=== PATIENT | male | born 1945 | race Caucasian/White ===

== ENCOUNTER 2024-07-23 16:59 | Inpatient (IN) | payer MEDICARE, SELFPAY ==
[2024-07-23] VITALS (21 sets, daily range): BP systolic 103–143; BP diastolic 76–102; PULSE 85–152; RESP 15–35; TEMP 36.4–36.5; O2SAT 90–96
--- NOTE | ~2024-07-23 | XR_ITS ---
EXAMINATION: XR chest 1V portable Exam Date/Time: 07/23/2024 17:55 MANAGER LIFE SCIENCES HISTORY: CP and SOB Comparison: None. RESULT: Lines, tubes, and devices: None. Lungs and pleura: Diffuse moderate reticulonodular opacities with scattered groundglass and subsegme ntal consolidative opacity. Moderate left costophrenic angle blunting. Cardiomediastinal silhouette: Partially obscured, otherwise unremarkable. Other: No acute osseous or upper abdominal finding. IMPRESSION: Pulmonary opacities may represent moderate edema with a moderate left pleural effusion. Infection not excluded. Reviewed, dictated and finalized at location K. GER [employer] SCIENCES IMPRESSION: Pulmonary opacities may represent moderate edema with a moderate left pleural e ffusion. Infection not excluded.
--- NOTE | ~2024-07-23 | CT_ITS ---
EXAMINATION: CT diagnostic chest wo con DATE: 07/25/2024 11:25 INDICATION: ?Pneumonia TECHNIQUE: Computed tomography (CT) of the chest was performed without intravenous contrast. Addition al 3D reconstructions utilizing coronal maximum intensity projection (MIP) were performed. Automated exposure control and iterative reconstruction technique were employed. The dose-length product was 36 4.79 mGy-cm. COMPARISON: None FINDINGS: Moderate emphysema. There are small bilateral posterior layering pleural effusions with dependent ate lectasis in both lungs. There are groundglass opacities and small patchy regions of consolidation sca ttered throughout both lungs most prominent in the bilateral upper lobes, lingula and superior segmen t of the left lower lobe and would favor pneumonia over pulmonary edema. There is some mild wall thic kening along the anteromedial aspect and some thin linear calcification along the anterolateral wall of a 8 x 6 cm cavitary lesion at the lingula the majority of which demonstrates a very thin periphera l wall. Cardiomegaly with atherosclerotic coronary artery calcification. No pericardial effusion. Tho racic aorta is normal in caliber. Multiple mildly prominent but still normal-sized mediastinal lymph nodes which are likely reactive. Visualized upper abdomen is unremarkable. Moderate thoracic spondylo sis. IMPRESSION: 1. Moderate emphysema with patchy diffuse bilateral lung disease most likely multifocal pneumonia wit h differential including pulmonary edema or chronic interstitial lung disease. 2. Mild wall thickening along the anteromedial margin of a large cavitary lesion in the lingula most likely related to either emphysema or chronic infection with some peripheral atelectasis/scarring. 3. Small bilateral pleural effusions. 4. Cardiomegaly. Reviewed, dictated and finalized at location A. AL PHYSIOLOGY TEACHER IMPRESSION: 1. Moderate emphysema with patchy diffuse bilateral lung disease most likely mu ltifocal pneumonia with differential including pulmonary edema or chronic inter stitial lung disease. 2. Mild wall thickening along the anteromedial margin of a large cavitary lesio n in the lingula most likely related to either emphysema or chronic infection w ith some peripheral atelectasis/scarring. 3. Small bilateral pleural effusions. 4. Cardiomegaly.
--- NOTE | 2024-07-23 17:43 | ECG_ITS ---
Test Date: 2024-07-23 17:46:02 Measurements Intervals [place] Rate: 151 P: 0 [place]: 0 QRS: 46 QRSD: 110 T: 161 QT: 285 QTc: 452 Interpretive Statements ATRIAL FLUTTER/TACHYCARDIA WITH RAPID VENTRICULAR RESPONSE LOW QRS VOLTAGE IN LIMB LEADS POSSIBLE ANTERIOR MYOCARDIAL INFARCTION , PROBABLY OLD BORDERLINE ST-T WAVE ABNORMALITY- LAT/HIGH LAT LEADS BASELINE WANDER- V4-V6 ABNORMAL ECG No previous ECG available for comparison Electronically Signed On 07-23-2024 19:12:50 TUBE MOLDER FIBERGLASS by Derian Barnes D.O.
[2024-07-23 17:55] LABS: Basophils Percent Auto 0.3 % (0.2-1.2); Eosinophils Absolute Auto 0.1 K/mm3 (0-0.3); Eosinophils Percent Auto 0.9 % (0-4.4); Hematocrit 44.3 % (42.0-52.0); Hemoglobin 15.2 g/dL (14.0-18.0); Immature Granulocyte Absolute 0.03 K/mm3 (0.00-0.031); Immature Granulocyte Percent A 0.3 % (0-0.5); Lymphocytes Absolute Auto 1.26 K/mm3 (0.9-3.2); Lymphocytes Percent Auto 10.9 % (18.3-44.2); Mean Corpuscular HGB Conc 34.3 g/dl (32-36); Mean Corpuscular Volume 87.4 fl (80-100); Mean Platelet Volume 10.9 fl (7.4-10.4); Monocytes Absolute Auto 0.8 K/mm3 (0.1-0.6); Monocytes Percent Auto 6.6 % (2.6-8.5); Neutrophils Absolute Auto 9.4 K/mm3 (1.3-6.7); Platelet Count Result 170 k/mm3 (150-375); Red Blood Count 5.07 M/mm3 (4.6-6.20); Red Cell Distribution Width 12.9 % (11.5-14.5); White Blood Count 11.6 K/mm3 (4.5-10.0)
[2024-07-23] MEDS: dilTIAZem HCl INJ 25 MG/5 ML VIAL 10 MG IV PUSH (17:57)
[2024-07-23] MEDS: ASPIRIN 81 MG CHEWABLE TABLET 324 MG PO (17:57)
[2024-07-23 18:12] LABS: INR 1.1; Prothrombin Time 14.7 Seconds (11.1-14.7)
[2024-07-23 18:13] LABS: Partial Thromboplastin Time 28.3 Seconds (22.3-36.8)
[2024-07-23 18:17] LABS: Alanine Aminotransferase 19 U/L (6-50); Albumin Level 4.3 g/dL (3.5-5.1); Alkaline Phosphatase 103 U/L (38-126); Anion Gap 12 mmol/L (4-12); Aspartate Amino Transferase 25 U/L (17-59); Bilirubin,Total 0.9 mg/dL (0.2-1.3); Blood Urea Nitrogen 37 mg/dL (9-20); Calcium 8.9 mg/dL (8.4-10.2); Carbon Dioxide 23 mmol/L (22-30); Chloride 102 mmol/L (98-107); Estimated CRCL calculation 45 ml/min; Estimated Glomerular Filt Rate 49; Glucose 165 mg/dL (65-110); Lipase 68 U/L (23-300); Potassium 4.1 mmol/L (3.4-5.0); Sodium 137 mmol/L (137-145)
[2024-07-23] MEDS: dilTIAZem HCl INJ 25 MG/5 ML VIAL 15 MG IV PUSH (18:20)
--- NOTE | 2024-07-23 18:26 | ECG_ITS ---
Test Date: 2024-07-23 18:35:56 Measurements Intervals [place] Rate: 110 P: 0 [place]: 0 QRS: 48 QRSD: 85 T: 152 QT: 366 QTc: 496 Interpretive Statements ATRIAL FIBRILLATION WITH RAPID VENTRICULAR RESPONSE DELAYED PRECORDIAL R/S TRANSITION ST-T WAVE ABNORMALITY IN LAT/HIGH LAT LEADS- CONSIDER ISCHEMIA BASELINE ARTIFACT- I, II, III, AVL, AVF, V4 ABNORMAL ECG Compared to ECG 07/23/2024 17:46:02 ATRIAL FLUTTER NO LONGER PRESENT Possible ischemia now present Electronically Signed On 07-23-2024 19:07:37 APARTMENT MAINTENANCE MANAGER by Derian Barnes D.O.
[2024-07-23 18:31] LABS: NT Pro B Type Natriuretic Pept 9110 pg/mL (19.9-100); Troponin I 0.057 ng/mL (0.000-0.034)
[2024-07-23] MEDS: FUROSEMIDE INJ 40 MG/4 ML VIAL IV PUSH (18:39)
--- NOTE | 2024-07-23 18:42 | ED_ITS ---
HPI - SOB/Dyspnea General Chief Complaint: Shortness of Breath/Dyspnea Stated Complaint: sob Time Seen by Provider: 07/23/24 17:46 History of Present Illness HPI Narrative: Patient is a 78-year-old male who presents ER with shortness of breath. Ongoing for 2 weeks. He has had cough that is nonproductive. No fevers or chills or sweats. No chest pain or chest pressure. Unsure if he has orthopnea. Cannot describe any aggravating factors. His heart rate is elevated but he has no palpitations. Reports history of hypertension but no other cardiac issues. Related Data Allergies Allergy/AdvReac Type Severity Reaction Status Date / Time No Known Drug Allergies Allergy Unknown Verified 01/16/17 16:28 Review of Systems Review of Systems: All systems reviewed & are unremarkable except as noted in HPI and below Constitutional: Constitutional: Denies chills, Reports fatigue and Denies fever(s) ENT: Reports system reviewed and no additional complaints, except as documented Cardiovascular: Cardiovascular: Reports no additional cardiovascular complaints Respiratory: Respiratory: Denies chest congestion, Reports cough, Reports dyspnea and Denies wheezing Gastrointestinal: Gastrointestinal: Reports no additional gastrointestinal complaints Musculoskeletal: Musculoskeletal: Reports no additional musculoskeletal complaints PMFSH Past Medical History Medical History (Updated 07/23/24 @ 20:06 by Khai Murphy MD) Hypertension Surgical History Surgical History (Updated 07/23/24 @ 19:31 by Khai Murphy MD) No history of previous surgery Exam Narrative: GENERAL: Well-appearing, well-nourished, and in no acute distress. HEAD: Normocephalic, atraumatic. ENT: Mucous membranes moist. NECK: Supple. CHEST: Faint crackles bilaterally. No respiratory distress. HEART: Tachycardic and regular. Normal peripheral pulses. ABDOMEN: Soft, nontender, nondistended, normal active bowel sounds. EXTREMITIES: Normal range of motion. 1+ edema. SKIN: Warm, dry, no rash. NEURO: Alert and oriented x3. PSYCH: Normal mood and affect. Course Course Emergency Course: I have discussed the case with Dr. Iverson with Cardiology. Patient is on the Diltiazem drip and will receive Lovenox 1 milligram/kilogram. ChadsVasc 2 score of 3. Patient require admission for continued rate control and evaluation of AFib RVR and pulmonary edema. Lasix ordered for diuresis. Vital Signs Vital signs: Vital Signs Temperature 97.6 F 07/23/24 17:03 Pulse Rate 150 H 07/23/24 17:03 Respiratory Rate 22 H 07/23/24 17:03 Blood Pressure 121/99 H 07/23/24 17:03 Pulse Oximetry 90 07/23/24 17:03 Temperature 97.6 F 07/23/24 17:03 Pulse Rate 120 H 07/23/24 19:39 Respiratory Rate 24 H 07/23/24 19:39 Blood Pressure 107/89 07/23/24 19:39 Pulse Oximetry 94 07/23/24 19:39 Oxygen Delivery Nasal Cannula 07/23/24 17:46 Oxygen Flow Rate 4 07/23/24 17:46 MDM - SOB/Dyspnea Lab Data 07/23/24 17:49 07/23/24 17:49 Labs: Lab Results 07/23/24 Range/Units 17:49 WBC 11.6 H (4.5-10.0) K/mm3 RBC 5.07 (4.6-6.20) M/mm3 Hgb 15.2 (14.0-18.0) g/dL Hct 44.3 (42.0-52.0) % MCV 87.4 (80-100) fl MCH 30.0 (26-34) pg MCHC 34.3 (32-36) g/dl RDW 12.9 (11.5-14.5) % Plt Count 170 (150-375) k/mm3 MPV 10.9 H (7.4-10.4) fl Immature Gran % (Auto) 0.3 (0-0.5) % Neut % (Auto) 81.0 H (45.5-73.1) % Lymph % (Auto) 10.9 L (18.3-44.2) % [place] % (Auto) 6.6 (2.6-8.5) % Eos % (Auto) 0.9 (0-4.4) % Baso % (Auto) 0.3 (0.2-1.2) % Lymph # (Auto) 1.26 (0.9-3.2) K/mm3 [place] # (Auto) 0.8 H (0.1-0.6) K/mm3 Eos # (Auto) 0.1 (0-0.3) K/mm3 Baso # (Auto) 0.0 (0.0-0.1) K/mm3 Abs Immat Gran (auto) 0.03 (0.00-0.031) K/mm3 Absolute Neuts (auto) 9.4 H (1.3-6.7) K/mm3 Absolute Nucleated RBC 0.000 (0.0-0.012) K/mm3 Nucleated RBC % 0.0 (0.0-0.2) % PT 14.7 (11.1-14.7) Seconds INR 1.1 APTT 28.3 (22.3-36.8) Seconds Sodium 137 (137-145) mmol/L Potassium 4.1 (3.4-5.0) mmol/L Chloride 102 (98-107) mmol/L Carbon Dioxide 23 (22-30) mmol/L Anion Gap 12 (4-12) mmol/L BUN 37 H (9-20) mg/dL Creatinine 1.40 H (0.7-1.3) mg/dL Estim Creat Clear Calc 45 ml/min Estimated GFR 49 L (59 - ) Glucose 165 H (65-110) mg/dL Calcium 8.9 (8.4-10.2) mg/dL Total Bilirubin 0.9 (0.2-1.3) mg/dL AST 25 (17-59) U/L ALT 19 (6-50) U/L Alkaline Phosphatase 103 (38-126) U/L Troponin I 0.057 H* (0.000-0.034) ng/mL NT-Pro-B Natriuret Pep 9110 H (19.9-100) pg/mL Total Protein 7.0 (6.3-8.2) g/dL Albumin 4.3 (3.5-5.1) g/dL Lipase 68 (23-300) U/L Imaging Data Radiologist's impression: ITS Impressions Chest X-Ray 07/23/24 18:15 IMPRESSION: Pulmonary opacities may represent moderate edema with a moderate left pleural effusion. Infection not excluded. ECG Data EKG #1: ECG completion date: 07/23/24 ECG completion time: 17:46 EKG Interpretation: tachycardia (151), atrial flutter, non-specific ST changes, normal QRS, normal QT and NL axis EKG #2: ECG completion date: 07/23/24 ECG completion time: 18:35 EKG Interpretation: tachycardia (110), atrial fibrillation, non-specific ST changes, normal QRS, normal QT and NL axis Critical Care Time Critical Care Time Critical Care Time: Yes Total Critical Care Time: 35 Discharge Plan Discharge Clinical Impression: Atrial fibrillation with RVR, Pulmonary edema Patient Disposition: Still a Patient Condition: Stable Follow-up/Referrals: Cora,Rj Hodges MD [Primary Care Provider] -
[2024-07-23] MEDS: dilTIAZem 100 MG/100 ML 100 MG/100 ML BAG IV CONT (18:57)
[2024-07-23] MEDS: ENOXAPARIN 100 MG/ML SYRINGE 98 MG SUB-Q (18:57)
--- NOTE | 2024-07-23 21:31 | ECG_ITS ---
Test Date: 2024-07-23 21:36:04 Measurements Intervals [place] Rate: 99 P: 0 SD: 0 QRS: 41 QRSD: 90 T: 161 QT: 399 QTc: 514 Interpretive Statements ATRIAL FLUTTER/TACHYCARDIA LOW QRS VOLTAGE IN LIMB LEADS BORDERLINE R WAVE PROGRESSION, ANTERIOR LEADS ST DEVIATION AND MODERATE T-WAVE ABNORMALITY, CONSIDER ANTEROLAT/HIGH LAT ISCHEMIA ABNORMAL ECG Compared to ECG 07/23/2024 18:35:56 Atrial fibrillation no longer present Electronically Signed On 07-24-2024 06:13:39 LICENSED EMBALMER by Derian Barnes D.O.
--- NOTE | 2024-07-23 23:00 | ADMGEN ---
This patient, Horacio James, was admitted to IMU Room 211-01. Patient/family oriented to hospital policies and general routines including ID bracelet, bed and alarms, visiting hours, pain management, procedures, bathroom and other care routines, personal items, smoking policy, room service/diet, and visiting hours. Information on how to activate the Rapid Response Team has been discussed. Patient/Family are encouraged to report perceived risks to care and to ask questions if they do not understand what they are told or what they should do.
--- NOTE | 2024-07-23 23:05 | PC.NURSE ---
Admissions report provided to SANDRA Lewis.
[2024-07-24] VITALS (25 sets, daily range): BP systolic 104–149; BP diastolic 57–90; PULSE 74–119; RESP 16–24; TEMP 36.4–37.3; O2SAT 91–100; BMI 28.5
[2024-07-24 00:17] LABS: Troponin I 0.105 ng/mL (0.000-0.034)
[2024-07-24] MEDS: HYDROcodone/acetaminophen (*CRX) 5-325 MG TABLET 1 TAB PO (01:57)
[2024-07-24] MEDS: dilTIAZem 100 MG/100 ML 100 MG/100 ML BAG IV CONT (05:12)
--- NOTE | 2024-07-24 06:00 | ECHO_ITS ---
Patient Info Name: Horacio James Age: 78 years : 1945 Gender: Male Ht: 73 in Wt: 216 lbs BSA: 2.26 m2 HR: 95 bpm BP: 111 / 75 mmHg Heart Rhythm: Atrial Fibrillation, Tachycardia Technical Quality: Fair Exam Date: 07/24/2024 9:48 AM Exam Location: Echo Lab Patient Status: Outpatient Admit Date: 07/23/2024 Staff Ordering Physician: Khai Murphy MD Manager Customer: Fei Tilley RDCS Attending Provider: Ilsa Chan DO Referring Physician: Jeffrey ZHONG; Exam Type: CA echo doppler color flow Study Info Indications - NEW AFIB AND PULMONARY EDEMA Complete two-dimensional, color flow and Doppler transthoracic echocardiogram is performed. Summary 1. Left ventricular chamber dimension is normal. 2. Left ventricular systolic function is severely reduced, estimated at 20-25%. 3. Right ventricular chamber dimension is normal. 4. Right ventricular systolic function is reduced. 5. Left atrial chamber dimension is moderately enlarged. 6. Right atrial chamber dimension is moderately enlarged. 7. There is mild mitral valve regurgitation. 8. There is mild tricuspid valve regurgitation. 9. There is small anterior pericardial effusion. Left Ventricle Left ventricular chamber dimension is normal. Left ventricular systolic function is severely reduced, estimated at 20-25%. There is no increased left ventricular wall thickness. The left ventricular diastolic function is abnormal. Right Ventricle Right ventricular chamber dimension is normal. Right ventricular systolic function is reduced. Left Atria Left atrial chamber dimension is moderately enlarged. Right Atria Right atrial chamber dimension is moderately enlarged. Atrial Septum Intact interatrial septum visualized by color flow imaging. Aortic Valve The aortic valve is not well visualized. There is no aortic valve stenosis. There is no aortic valve regurgitation. Pulmonic Valve The pulmonic valve is not well visualized. Mitral Valve There is mild mitral valve regurgitation. Tricuspid Valve There is mild tricuspid valve regurgitation. Pericardium/Pleural There is small anterior pericardial effusion. Inferior Vena Cava Dilated inferior vena cava with <50% collapse upon inspiration consistent with elevated right atrial pressure, 15 mmHg. Aorta The aortic root size at the sinus of Valsalva is normal. Left Ventricular Outflow Tract Name Value Normal LVOT 2D LVOT Diameter 2.0 cm LVOT Doppler LVOT Peak Gradient 4 mmHg LVOT Mean Gradient 2 mmHg LVOT VTI 13 cm LVOT VTI/AV VTI Ratio 0.6 LVOT Stroke Volume 41 ml LVOT CO 4.3 l/min LVOT CI 1.9 l/min/m2 Pulmonic Valve Name Value Normal RVOT Doppler RVOT Peak Gradient 1 mmHg PV Doppler PV Peak Gradient 1 mmHg Mitral Valve Name Value Normal MV Doppler MV Peak Gradient 7 mmHg MV Mean Gradient 3 mmHg MV Decel [place] 957 cm/s2 MV PHT 34 ms MV Area (PHT) 6.4 cm2 4.0-5.0 MV Area (Cont Eq VTI) 1.8 cm2 MV Diastolic Function MV E Peak Velocity 113 cm/s MV A Peak Velocity 1 cm/s MV E/A 77.8 MV Decel Time 119 ms Tricuspid Valve Name Value Normal TV Regurgitation Doppler TR Peak Velocity 344 cm/s TR Peak Gradient 47 mmHg Estimated PAP/RSVP RA Pressure 15 mmHg <=5 PA Systolic Pressure 62 mmHg <36 RV Systolic Pressure 62 mmHg <36 Aorta Name Value Normal Ascending Aorta Ao Root Diameter (MM) 3.4 cm Ao Root Diam Index (MM) 1.5 cm/m2 Aortic Valve Name Value Normal AV Doppler AV Peak Velocity 141 cm/s AV Peak Gradient 4 mmHg AV Mean Gradient 3 mmHg AV VTI 23 cm AV Area (Cont Eq VTI) 1.8 cm2 >=3.0 AV Area (Cont Eq Andrew) 2.2 cm2 AV Regurgitation 2D LVOT Area 3.2 cm2 Ventricles Name Value Normal LV Dimensions 2D/MM IVS Diastolic Thickness (2D) 1.2 cm 0.6-1.0 LVID Diastole (2D) 5.8 cm 4.2-5.8 LVIW Diastolic Thickness (2D) 1.0 cm 0.6-1.0 LVID Systole (2D) 4.8 cm 2.5-4.0 LVOT Diameter 2.0 cm LV Mass (2D Cubed) 268.72 g 88.00-224.00 LV Mass Index (2D Cubed) 119 g/m2 49-115 Relative Wall Thickness (2D) 0.35 LV Fractional Shortening/Ejection Fraction 2D/MM LV Fractional Shortening (2D) 18 % 25-43 LV EF (2D Teicholz) 36 % 52-72 Atria Name Value Normal LA Dimensions LA Dimension (MM) 4.9 cm 3.0-4.1 LA Volume (4C A-L) 48 ml LA Volume (BP A-L) 62 ml RA Dimensions RA Area (4C) 28.8 cm2 <=18.0 Report Signatures
[2024-07-24] MEDS: METOPROLOL TARTRATE 12.5 MG TABLET PO ×2 (10:02→12:13)
--- NOTE | 2024-07-24 10:22 | P.CONCA_ITS ---
Assessment and Plan Assessment and plan (1) Atrial fibrillation with RVR: Code(s): I48.91 - Unspecified atrial fibrillation Status: Acute Assessment and Plan: New diagnosis of atrial fibrillation / atrial flutter with RVR. Check TSH level. Echocardiogram ordered and pending. Will stop Diltiazem drip and rate control with Metoprolol for now. [id number] of 4 given age, CHF, HTN. Will start Eliquis 5mg BID. If we are not able to adequately rate control him, then will need PEDRO-guided DCCV. (2) Acute heart failure: Code(s): I50.9 - Heart failure, unspecified Status: Acute Assessment and Plan: Will start Lasix 40mg IV BID. Echocardiogram ordered and pending. Further recommendations pending results of echo. (3) Hypertension: Code(s): I10 - Essential (primary) hypertension Status: Acute Assessment and Plan: Stable. Will adjust his antihypertensive therapy depending on LVEF. History of Present Illness History of Present Illness Consult date/time: 07/24/24 10:22 Requesting physician: Khai Murphy MD Consult reason: atrial fibrillation and congestive heart failure Reason For Visit: Afib RVR, Pulmonary edema Narrative: We are consulted for CHF, Atrial fibrillation with RVR. This is a 78 year old male with hypertension, no prior cardiac history who presented to [place] ER with shortness of breath, coughing for the past week. Does report some chest pain that only occurs with coughing. In the ER, initial EKG showed atrial flutter with RVR. Repeat EKG showed atrial fibrillation with RVR with heart rates 110bpm. Started on Diltiazem drip. No prior history of atrial flutter or atrial fibrillation. Workup shows WBC of 11.6, SCr of 1.4. Troponins are 0.057, 0.080, 0.105. NT pro BNP elevated at 9,110. CXR shows pulmonary opacities concerning for moderate edema, moderate left pleural effusion. At the time of my visit, he is currently on Diltiazem 5mg/hour. Review of Systems Review of Systems: All systems reviewed & are unremarkable except as noted in HPI and below (HPI) [facility] Past Medical History Medical History (Updated 07/24/24 @ 10:26 by Jeffery Iverson MD) Hypertension Surgical History Surgical History No history of previous surgery Family History Family History Other Unknown family medical history Social History Social History Smoking packs per day: 1 Smoking cigarettes per day: 20.0 Years smoked: 30 Smoking pack-years: 30.00 Smoking status: Former smoker Drinks per week: 7 Substance use type: does not use Do You Feel Safe in your Home?: Yes Lack of Transportation: No Lack of Food: Never True Current Housing: I Have Housing Concerned About Future Housing: No Difficulty Paying Gas/Electric Bills: No Difficulty Paying for Meds: No Currently Unemployed: No Education: High School Diploma/GED Difficulty w/ Childcare or Family Care: No Spiritual care concerns: No Meds Home Medications and Allergies Home Medications Medication Instructions Recorded Confirmed Type amlodipine 10 mg tablet 10 mg PO DAILY 07/23/24 07/23/24 History hydrochlorothiazide 12.5 mg tablet 12.5 mg PO DAILY 07/23/24 07/23/24 History lisinopril 40 mg tablet 40 mg PO DAILY 07/23/24 07/23/24 History Allergies Allergy/AdvReac Type Severity Reaction Status Date / Time No Known Drug Allergies Allergy Unknown Unknown Verified 07/23/24 22:18 Vital Signs Vital Signs - 24 hr 07/23/24 17:03 07/23/24 17:44 07/23/24 17:45 Temperature 36.4 C Pulse Rate 150 H 151 H Respiratory Rate 22 H 26 H Blood Pressure 121/99 H 143/97 H Pulse Oximetry 90 92 91 Oxygen Delivery Room Air Oxygen Flow Rate Fraction of Inspired Oxygen 07/23/24 17:46 07/23/24 17:46 07/23/24 18:22 Temperature Pulse Rate 151 H 100 Respiratory Rate 30 H Blood Pressure 131/90 Pulse Oximetry 91 93 Oxygen Delivery Nasal Cannula Oxygen Flow Rate 4 Fraction of Inspired Oxygen 07/23/24 18:57 07/23/24 19:01 07/23/24 19:32 Temperature Pulse Rate 128 H 121 H 130 H Respiratory Rate 26 H Blood Pressure 120/102 H 120/102 H 107/89 Pulse Oximetry 92 Oxygen Delivery Oxygen Flow Rate Fraction of Inspired Oxygen 07/23/24 19:39 07/23/24 21:07 07/23/24 17:39 Temperature Pulse Rate 120 H 99 152 H Respiratory Rate 24 H 15 25 H Blood Pressure 107/89 123/76 122/100 H Pulse Oximetry 94 94 90 Oxygen Delivery Oxygen Flow Rate Fraction of Inspired Oxygen 07/23/24 17:41 07/23/24 17:45 07/23/24 18:00 Temperature Pulse Rate 151 H 151 H 150 H Respiratory Rate 20 23 H 35 H Blood Pressure Pulse Oximetry 92 92 Oxygen Delivery Oxygen Flow Rate Fraction of Inspired Oxygen 07/23/24 18:15 07/23/24 18:37 07/23/24 18:45 Temperature Pulse Rate 150 H 116 H 120 H Respiratory Rate 20 22 H 22 H Blood Pressure Pulse Oximetry 91 90 92 Oxygen Delivery Oxygen Flow Rate Fraction of Inspired Oxygen 07/23/24 19:16 07/23/24 20:47 07/23/24 22:20 Temperature Pulse Rate 129 H 100 85 Respiratory Rate 27 H 21 H 15 Blood Pressure 107/89 Pulse Oximetry 90 93 94 Oxygen Delivery Oxygen Flow Rate Fraction of Inspired Oxygen 07/23/24 22:50 07/23/24 22:50 07/24/24 00:18 Temperature 36.5 C 37.3 C Pulse Rate 106 H 115 H 86 Respiratory Rate 22 H 16 Blood Pressure 103/83 103/83 114/78 Pulse Oximetry 96 92 Oxygen Delivery Oxygen Flow Rate Fraction of Inspired Oxygen 07/24/24 00:00 07/23/24 23:00 07/24/24 01:47 Temperature 37.3 C Pulse Rate 86 78 Respiratory Rate 16 Blood Pressure 114/76 116/60 Pulse Oximetry 92 91 Oxygen Delivery Nasal Cannula Oxygen Flow Rate 4 Fraction of Inspired Oxygen 07/24/24 02:00 07/24/24 04:04 07/24/24 04:00 Temperature 36.9 C Pulse Rate 78 81 Respiratory Rate 16 Blood Pressure 116/60 109/72 Pulse Oximetry 94 94 Oxygen Delivery Nasal Cannula Oxygen Flow Rate 4 Fraction of Inspired Oxygen 07/24/24 05:12 07/24/24 04:00 07/24/24 05:00 Temperature Pulse Rate 85 85 83 Respiratory Rate Blood Pressure 109/72 109/72 109/72 Pulse Oximetry Oxygen Delivery Oxygen Flow Rate Fraction of Inspired Oxygen 07/24/24 00:00 07/24/24 02:00 07/24/24 04:00 Temperature Pulse Rate 82 85 81 Respiratory Rate Blood Pressure Pulse Oximetry Oxygen Delivery Oxygen Flow Rate Fraction of Inspired Oxygen 07/24/24 05:45 07/24/24 06:00 07/24/24 06:00 Temperature 36.9 C Pulse Rate 88 85 95 Respiratory Rate 16 Blood Pressure 111/75 111/75 Pulse Oximetry 94 Oxygen Delivery Oxygen Flow Rate Fraction of Inspired Oxygen 07/24/24 07:30 07/24/24 08:19 Temperature 36.8 C Pulse Rate 89 Respiratory Rate 24 H Blood Pressure 122/81 Pulse Oximetry 92 93 Oxygen Delivery Nasal Cannula Oxygen Flow Rate 4 Fraction of Inspired Oxygen 36 Exam Const: General: comfortable and no acute distress HENMT: Mouth: Yes moist mucous membranes Eyes: General: appearance normal, both eyes and all related structures Sclera: sclerae normal Resp: Effort & Inspection: normal respiratory effort Auscultation: diminished lung sounds Cardio: Rate: tachycardic Rhythm: abnormal rhythm irregularly irregular Heart sounds: no murmurs Skin: General skin exam: normal color Neuro: Speech: normal speech Psych: Mental Status: mental status grossly normal Affect: normal affect Results Labs and Meds 07/23/24 17:49 07/23/24 17:49 Lab results: Cardiac Enzymes 07/23/24 07/23/24 07/23/24 Range/Units 17:49 21:06 23:42 AST 25 (17-59) U/L Troponin I 0.057 H* 0.080 H* D 0.105 H* D (0.000-0.034) ng/mL Coagulation 07/23/24 Range/Units 17:49 PT 14.7 (11.1-14.7) Seconds APTT 28.3 (22.3-36.8) Seconds CBC 07/23/24 Range/Units 17:49 WBC 11.6 H (4.5-10.0) K/mm3 RBC 5.07 (4.6-6.20) M/mm3 Hgb 15.2 (14.0-18.0) g/dL Hct 44.3 (42.0-52.0) % Plt Count 170 (150-375) k/mm3 Lymph # (Auto) 1.26 (0.9-3.2) K/mm3 [place] # (Auto) 0.8 H (0.1-0.6) K/mm3 Eos # (Auto) 0.1 (0-0.3) K/mm3 Baso # (Auto) 0.0 (0.0-0.1) K/mm3 Comprehensive Metabolic Panel 07/23/24 Range/Units 17:49 Sodium 137 (137-145) mmol/L Potassium 4.1 (3.4-5.0) mmol/L Chloride 102 (98-107) mmol/L Carbon Dioxide 23 (22-30) mmol/L BUN 37 H (9-20) mg/dL Creatinine 1.40 H (0.7-1.3) mg/dL Glucose 165 H (65-110) mg/dL Calcium 8.9 (8.4-10.2) mg/dL AST 25 (17-59) U/L ALT 19 (6-50) U/L Alkaline Phosphatase 103 (38-126) U/L Total Protein 7.0 (6.3-8.2) g/dL Albumin 4.3 (3.5-5.1) g/dL Intake and Output 07/23/24 07/24/24 07/24/24 23:59 07:59 15:59 Intake Total 35.9 618.1 240 Output Total 400 Balance 35.9 218.1 240 Intake: IV 35.9 68.1 dilTIAZem 100 MG/100 ML 100 mg 35.9 68.1 In 100 ml @ 5 MG/HR 5 mls/hr IV CONT .Q20H [facility] Rx#:[id number] Oral 550 240 Output: Urine 400 Other: # Unmeasured Voids 1 Patient Weight 07/24/24 23:59 Weight 96.8 kg
[2024-07-24] MEDS: FUROSEMIDE INJ 40 MG/4 ML VIAL IV PUSH ×2 (12:13→17:31)
[2024-07-24] MEDS: APIXABAN 5 MG TABLET PO ×2 (12:13→20:38)
--- NOTE | 2024-07-24 14:59 | PM.IMHP ---
H&P: HPI History of Present Illness Date/Time: 07/24/24 14:59 Chief Complaint: Shortness of breath and palpitations. Narrative: [age] male past medical history of hypertension presented to the ER on account of shortness of breath palpitations. Patient history having a mild cough for about a week and yesterday he suddenly started having shortness of breath and palpitations associated with nausea prompting him to present to the ER for evaluation and care. Denies any fever, no vomiting no abdominal pain no diarrhea dysuria no focal symptoms no loss of consciousness. ER evaluation the for her is 151, respiratory 20, blood pressure 130/90, saturating 91% on 4 L oxygen. Labs notable for creatinine 1.4, troponin 0.057, repeat 0.105, NT proBNP 9110. Chest x-ray showed pulmonary opacities representing moderate edema with moderate left pleural effusion. Infection not excluded. EKG showed atrial fibrillation with rapid ventricular response. Patient was started on Cardizem infusion prior to admission. Review of Systems Review of Systems: Other systems reviewed and negative except as noted in the HPI above. COUNT INCLUDES THE [facility] Past Medical History Medical History (Updated 07/24/24 @ 10:26 by Jeffery Iverson MD) Hypertension Surgical History Surgical History No history of previous surgery Family History Family History Other Unknown family medical history Social History Social History Smoking packs per day: 1 Smoking cigarettes per day: 20.0 Years smoked: 30 Smoking pack-years: 30.00 Smoking status: Former smoker Drinks per week: 7 Substance use type: does not use Do You Feel Safe in your Home?: Yes Lack of Transportation: No Lack of Food: Never True Current Housing: I Have Housing Concerned About Future Housing: No Difficulty Paying Gas/Electric Bills: No Difficulty Paying for Meds: No Currently Unemployed: No Education: High School Diploma/GED Difficulty w/ Childcare or Family Care: No Spiritual care concerns: No Meds Home Medications and Allergies Home Medications Medication Instructions Recorded Confirmed Type amlodipine 10 mg tablet 10 mg PO DAILY 07/23/24 07/23/24 History hydrochlorothiazide 12.5 mg tablet 12.5 mg PO DAILY 07/23/24 07/23/24 History lisinopril 40 mg tablet 40 mg PO DAILY 07/23/24 07/23/24 History Allergies Allergy/AdvReac Type Severity Reaction Status Date / Time No Known Drug Allergies Allergy Unknown Unknown Verified 07/23/24 22:18 Vital Signs Vital Signs - 24 hr 07/23/24 17:03 07/23/24 17:44 07/23/24 17:45 Temperature 97.6 F Pulse Rate 150 H 151 H Respiratory Rate 22 H 26 H Blood Pressure 121/99 H 143/97 H Pulse Oximetry 90 92 91 Oxygen Delivery Room Air Oxygen Flow Rate Fraction of Inspired Oxygen 07/23/24 17:46 07/23/24 17:46 07/23/24 18:22 Temperature Pulse Rate 151 H 100 Respiratory Rate 30 H Blood Pressure 131/90 Pulse Oximetry 91 93 Oxygen Delivery Nasal Cannula Oxygen Flow Rate 4 Fraction of Inspired Oxygen 07/23/24 18:57 07/23/24 19:01 07/23/24 19:32 Temperature Pulse Rate 128 H 121 H 130 H Respiratory Rate 26 H Blood Pressure 120/102 H 120/102 H 107/89 Pulse Oximetry 92 Oxygen Delivery Oxygen Flow Rate Fraction of Inspired Oxygen 07/23/24 19:39 07/23/24 21:07 07/23/24 17:39 Temperature Pulse Rate 120 H 99 152 H Respiratory Rate 24 H 15 25 H Blood Pressure 107/89 123/76 122/100 H Pulse Oximetry 94 94 90 Oxygen Delivery Oxygen Flow Rate Fraction of Inspired Oxygen 07/23/24 17:41 07/23/24 17:45 07/23/24 18:00 Temperature Pulse Rate 151 H 151 H 150 H Respiratory Rate 20 23 H 35 H Blood Pressure Pulse Oximetry 92 92 Oxygen Delivery Oxygen Flow Rate Fraction of Inspired Oxygen 07/23/24 18:15 07/23/24 18:37 07/23/24 18:45 Temperature Pulse Rate 150 H 116 H 120 H Respiratory Rate 20 22 H 22 H Blood Pressure Pulse Oximetry 91 90 92 Oxygen Delivery Oxygen Flow Rate Fraction of Inspired Oxygen 07/23/24 19:16 07/23/24 20:47 07/23/24 22:20 Temperature Pulse Rate 129 H 100 85 Respiratory Rate 27 H 21 H 15 Blood Pressure 107/89 Pulse Oximetry 90 93 94 Oxygen Delivery Oxygen Flow Rate Fraction of Inspired Oxygen 07/23/24 22:50 07/23/24 22:50 07/24/24 00:18 Temperature 97.7 F 99.2 F Pulse Rate 106 H 115 H 86 Respiratory Rate 22 H 16 Blood Pressure 103/83 103/83 114/78 Pulse Oximetry 96 92 Oxygen Delivery Oxygen Flow Rate Fraction of Inspired Oxygen 07/24/24 00:00 07/23/24 23:00 07/24/24 01:47 Temperature 99.1 F Pulse Rate 86 78 Respiratory Rate 16 Blood Pressure 114/76 116/60 Pulse Oximetry 92 91 Oxygen Delivery Nasal Cannula Oxygen Flow Rate 4 Fraction of Inspired Oxygen 07/24/24 02:00 07/24/24 04:04 07/24/24 04:00 Temperature 98.4 F Pulse Rate 78 81 Respiratory Rate 16 Blood Pressure 116/60 109/72 Pulse Oximetry 94 94 Oxygen Delivery Nasal Cannula Oxygen Flow Rate 4 Fraction of Inspired Oxygen 07/24/24 05:12 07/24/24 04:00 07/24/24 05:00 Temperature Pulse Rate 85 85 83 Respiratory Rate Blood Pressure 109/72 109/72 109/72 Pulse Oximetry Oxygen Delivery Oxygen Flow Rate Fraction of Inspired Oxygen 07/24/24 00:00 07/24/24 02:00 07/24/24 04:00 Temperature Pulse Rate 82 85 81 Respiratory Rate Blood Pressure Pulse Oximetry Oxygen Delivery Oxygen Flow Rate Fraction of Inspired Oxygen 07/24/24 05:45 07/24/24 06:00 07/24/24 06:00 Temperature 98.4 F Pulse Rate 88 85 95 Respiratory Rate 16 Blood Pressure 111/75 111/75 Pulse Oximetry 94 Oxygen Delivery Oxygen Flow Rate Fraction of Inspired Oxygen 07/24/24 07:30 07/24/24 08:19 07/24/24 10:00 Temperature 98.2 F 98.2 F Pulse Rate 89 113 H Respiratory Rate 24 H 24 H Blood Pressure 122/81 149/90 H Pulse Oximetry 92 93 92 Oxygen Delivery Nasal Cannula Oxygen Flow Rate 4 Fraction of Inspired Oxygen 36 07/24/24 08:00 07/24/24 08:00 07/24/24 10:00 Temperature Pulse Rate 89 113 H Respiratory Rate Blood Pressure 122/81 149/90 H Pulse Oximetry 92 Oxygen Delivery Nasal Cannula Oxygen Flow Rate 2 Fraction of Inspired Oxygen 07/24/24 08:00 07/24/24 10:00 07/24/24 11:41 Temperature 97.5 F L Pulse Rate 119 H 85 97 Respiratory Rate 24 H Blood Pressure 112/70 Pulse Oximetry 96 Oxygen Delivery Oxygen Flow Rate Fraction of Inspired Oxygen 07/24/24 12:00 07/24/24 12:00 07/24/24 14:00 Temperature 97.7 F Pulse Rate 83 78 Respiratory Rate 24 H Blood Pressure 118/81 Pulse Oximetry 96 95 Oxygen Delivery Nasal Cannula Oxygen Flow Rate 2 Fraction of Inspired Oxygen 07/24/24 14:00 Temperature Pulse Rate 80 Respiratory Rate Blood Pressure Pulse Oximetry Oxygen Delivery Oxygen Flow Rate Fraction of Inspired Oxygen Exam Narrative: General: alert and comfortable Eyes: EOMI, PERRLA ENNT External ears normal, Neck is supple, no masses, Respiratory systems: Clear to auscultation Cardiovascular S1, S2, normal rhythm, no murmur, rub, or gallop; no thrill or palpable murmurs on palpation. Gastrointestinal: soft, non-tender, and non-distended abdomen with no masses; BS present Skin: no rash, lesions, ulcerations, subcutaneous nodules or induration Musculoskeletal: no abnormality and no tenderness, normal ROM Neurologic: Alert and oriented x3, non focal Mental Status Exam: normal affect H&P: Results Labs Labs: Short CBC 07/23/24 Range/Units 17:49 WBC 11.6 H (4.5-10.0) K/mm3 Hgb 15.2 (14.0-18.0) g/dL Hct 44.3 (42.0-52.0) % Plt Count 170 (150-375) k/mm3 BMP 07/23/24 17:49 Sodium 137 Potassium 4.1 Chloride 102 Carbon Dioxide 23 BUN 37 H Creatinine 1.40 H Glucose 165 H Calcium 8.9 Cardiac Enzymes 07/23/24 07/23/24 07/23/24 Range/Units 17:49 21:06 23:42 Troponin I 0.057 H* 0.080 H* D 0.105 H* D (0.000-0.034) ng/mL Liver Function 07/23/24 Range/Units 17:49 Total Bilirubin 0.9 (0.2-1.3) mg/dL AST 25 (17-59) U/L ALT 19 (6-50) U/L Alkaline Phosphatase 103 (38-126) U/L Albumin 4.3 (3.5-5.1) g/dL Assessment and Plan Assessment and plan (1) Acute heart failure: Code(s): I50.9 - Heart failure, unspecified Status: Acute (2) Atrial fibrillation with RVR: Code(s): I48.91 - Unspecified atrial fibrillation Status: Acute Plan Atrial fibrillation with rapid ventricular response Status post Cardizem infusion, statin metoprolol [id number] of 4, continue Eliquis 5mg bid Echo pending Cardiology consulted and patient Monitor electrolytes. Acute heart failure Elevated NT proBNP intracerebral. Chest x-ray showed pulmonary edema rule out infection Echo pending Continue Lasix. Cardiology following. Hypertension Titrate her medications with clinical course. DVT prophylaxis on Eliquis. Next Surrogate decision maker Catina James Hospitalist MIPS Advance Care Plan I have confirmed that the patient's Advanced Care Plan is present, code status is documented, or surrogate decision maker is listed in patient medical record.: Yes Medication Reconciliation I have utilized all available resources to obtain, update and review the patients current medications (includes all prescriptions, OTC, herbals, cannabis, and nutritional supplements).: Yes
[2024-07-24] MEDS: SPIRONOLACTONE 25 MG TABLET PO (17:31)
[2024-07-24] MEDS: guaiFENesin/DEXTROMETHORPHAN 10 ML UDC PO (17:31)
[2024-07-24] MEDS: METOPROLOL TARTRATE 25 MG TABLET PO ×2 (17:31→20:37)
[2024-07-24] MEDS: SACUBITRIL/VALSARTAN 24-26 MG TABLET 1 TAB PO (20:37)
[2024-07-24] MEDS: MELATONIN 5 MG TABLET PO (20:38)
[2024-07-24] MEDS: ACETAMINOPHEN 325 MG TABLET 650 MG PO (20:51)
[2024-07-25] VITALS (17 sets, daily range): BP systolic 106–144; BP diastolic 72–92; PULSE 72–121; RESP 20–24; TEMP 36.2–36.8; O2SAT 91–98
[2024-07-25] MEDS: METOPROLOL TARTRATE 25 MG TABLET PO ×2 (04:27→09:00)
[2024-07-25 04:58] LABS: Basophils Percent Auto 0.1 % (0.2-1.2); Eosinophils Percent Auto 0.5 % (0-4.4); Hematocrit 41.9 % (42.0-52.0); Hemoglobin 14.4 g/dL (14.0-18.0); Immature Granulocyte Absolute 0.03 K/mm3 (0.00-0.031); Immature Granulocyte Percent A 0.4 % (0-0.5); Lymphocytes Absolute Auto 1.16 K/mm3 (0.9-3.2); Lymphocytes Percent Auto 14.6 % (18.3-44.2); Mean Corpuscular HGB Conc 34.4 g/dl (32-36); Mean Corpuscular Hemoglobin 30.6 pg (26-34); Mean Platelet Volume 10.8 fl (7.4-10.4); Monocytes Absolute Auto 0.6 K/mm3 (0.1-0.6); Monocytes Percent Auto 7.8 % (2.6-8.5); Neutrophils Absolute Auto 6.1 K/mm3 (1.3-6.7); Neutrophils Percent Auto 76.6 % (45.5-73.1); Platelet Count Result 158 k/mm3 (150-375); Red Blood Count 4.71 M/mm3 (4.6-6.20); Red Cell Distribution Width 12.8 % (11.5-14.5); White Blood Count 7.9 K/mm3 (4.5-10.0)
[2024-07-25 05:10] LABS: Alanine Aminotransferase 23 U/L (6-50); Albumin Level 3.8 g/dL (3.5-5.1); Alkaline Phosphatase 81 U/L (38-126); Anion Gap 11 mmol/L (4-12); Aspartate Amino Transferase 25 U/L (17-59); Blood Urea Nitrogen 45 mg/dL (9-20); Calcium 8.8 mg/dL (8.4-10.2); Carbon Dioxide 26 mmol/L (22-30); Chloride 100 mmol/L (98-107); Estimated CRCL calculation 35 ml/min; Estimated Glomerular Filt Rate 37; Glucose 144 mg/dL (65-110); Magnesium 2.3 mg/dL (1.6-2.3); Potassium 4.4 mmol/L (3.4-5.0); Sodium 137 mmol/L (137-145)
[2024-07-25 05:30] LABS: Troponin I 0.067 ng/mL (0.000-0.034)
[2024-07-25] MEDS: EMPAGLIFLOZIN 10 MG TABLET PO (08:51)
[2024-07-25] MEDS: APIXABAN 5 MG TABLET PO ×2 (08:51→21:13)
[2024-07-25] MEDS: SACUBITRIL/VALSARTAN 24-26 MG TABLET 1 TAB PO ×2 (08:52→21:12)
[2024-07-25] MEDS: SPIRONOLACTONE 25 MG TABLET PO (08:52)
[2024-07-25] MEDS: FUROSEMIDE INJ 40 MG/4 ML VIAL IV PUSH (09:00)
--- NOTE | 2024-07-25 10:40 | ECG_ITS ---
Test Date: 2024-07-25 11:00:12 Measurements Intervals Media Rate: 86 P: 0 NC: 0 QRS: 54 QRSD: 90 T: 153 QT: 431 QTc: 518 Interpretive Statements ATRIAL FIBRILLATION WITH VENTRICULAR PREMATURE COMPLEXES DELAYED PRECORDIAL R/S TRANSITION LOW QRS VOLTAGE IN LIMB LEADS ST-T WAVE ABNORMALITY IN ANTEROLAT/HIGH LAT LEADS- CONSIDER ISCHEMIA BASELINE ARTIFACT- II, III, AVL, AVF ABNORMAL ECG Compared to ECG 07/23/2024 21:36:04 ATRIAL FLUTTER NO LONGER PRESENT Electronically Signed On 07-25-2024 11:56:49 STAFF SERVICES MANAGER by Derian Barnes D.O.
--- NOTE | 2024-07-25 10:52 | PM.PNCARD ---
Progress Note: A&P Assessment and Plan (1) Atrial fibrillation with RVR: Code(s): I48.91 - Unspecified atrial fibrillation Status: Acute Plan 78-year-old man with atrial fibrillation of unknown chronicity and found to have left ventricular systolic dysfunction by ECHO. 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 His telemetry today is suspicious for sinus rhythm with APCs. I will have a 12 lead ECG done to confirm this. I will transition him from metoprolol tartrate to metoprolol succinate for more appropriate GDMT for his low ejection fraction. He is still wearing nasal cannula oxygen. If he remains stable and especially if he has converted he can probably be to room air and consider discharge tomorrow Kevin Boykin MD [facility] Subjective Date/time seen: date of service:07/25/24 10:52 Interval history: 78-year-old man admitted to hospital shortness of breath found to have atrial fibrillation and echocardiographic evidence of left ventricular systolic dysfunction. He feels better this morning in terms of less shortness of breath and less coughing. He has been started on medical therapy including Aldactone, Entresto and metoprolol tartrate. Telemetry today is suspicious for conversion to sinus rhythm. Exam Const: General: comfortable and no acute distress Other: Tall elderly man wearing nasal cannula oxygen HENMT: Mouth: Yes moist mucous membranes Eyes: Sclera: sclerae normal Neck: Neck: supple and no JVD Resp: Effort & Inspection: normal respiratory effort Auscultation: clear to auscultation bilaterally Cardio: Rate: regular rate Rhythm: regular rhythm Other: no obvious murmur or gallop GI: GI Palp: Yes Soft to palpation Auscultation: normal bowel sounds Skin: General skin exam: normal color Neuro: Other: alert and oriented x3 Objective Data Vital Signs Vital Signs: Vital Signs - 24 hr 07/24/24 11:41 07/24/24 12:00 07/24/24 12:00 Temperature 36.4 C L Pulse Rate 97 83 Respiratory Rate 24 H Blood Pressure 112/70 Pulse Oximetry 96 96 Oxygen Delivery Nasal Cannula Oxygen Flow Rate 2 07/24/24 14:00 07/24/24 14:00 07/24/24 15:53 Temperature 36.5 C 36.7 C Pulse Rate 78 80 99 Respiratory Rate 24 H 24 H Blood Pressure 118/81 127/57 L Pulse Oximetry 95 100 Oxygen Delivery Oxygen Flow Rate 07/24/24 16:00 07/24/24 16:00 07/24/24 18:00 Temperature Pulse Rate 81 74 Respiratory Rate Blood Pressure Pulse Oximetry 100 Oxygen Delivery Nasal Cannula Oxygen Flow Rate 2 07/24/24 20:00 07/24/24 20:37 07/24/24 20:00 Temperature 36.8 C Pulse Rate 75 80 Respiratory Rate 24 H Blood Pressure 104/74 Pulse Oximetry 93 93 Oxygen Delivery Nasal Cannula Oxygen Flow Rate 4 07/24/24 20:00 07/24/24 22:00 07/24/24 23:31 Temperature Pulse Rate 77 74 Respiratory Rate Blood Pressure Pulse Oximetry 95 Oxygen Delivery Nasal Cannula Oxygen Flow Rate 4 07/24/24 23:38 07/25/24 00:00 07/25/24 01:56 Temperature 36.4 C L Pulse Rate 76 72 73 Respiratory Rate 24 H Blood Pressure 115/63 Pulse Oximetry 95 Oxygen Delivery Oxygen Flow Rate 07/25/24 04:27 07/25/24 04:00 07/25/24 04:00 Temperature 36.8 C Pulse Rate 84 94 Respiratory Rate 24 H Blood Pressure 106/79 Pulse Oximetry 98 92 Oxygen Delivery Nasal Cannula Oxygen Flow Rate 4 07/25/24 04:00 07/25/24 06:00 07/25/24 08:00 Temperature 36.2 C L Pulse Rate 80 84 101 H Respiratory Rate 20 Blood Pressure 118/79 Pulse Oximetry 96 Oxygen Delivery Oxygen Flow Rate 07/25/24 09:00 07/25/24 08:00 07/25/24 09:59 Temperature Pulse Rate 99 99 99 Respiratory Rate Blood Pressure Pulse Oximetry Oxygen Delivery Oxygen Flow Rate Intake/Output Intake/Output: Intake & Output 07/22/24 07/23/24 07/24/24 07/25/24 23:59 23:59 23:59 23:59 Intake Total 35.9 1238.1 540 Output Total 775 1000 Balance 35.9 463.1 -460 Meds/Results Medications: Active Medications Generic Name Dose Route Start Last Admin Trade Name Freq PRN Reason Stop Dose Admin Acetaminophen 650 mg 07/23/24 20:07 07/24/24 20:51 Acetaminophen 325 Mg Tablet PO 650 mg Q4H PRN Administration Mild Pain (1-3) or Fever Hydrocodone Bitart/Acetaminophen 1 tab 11/26/24 20:07 07/24/24 01:57 Hydrocodone/Acetaminophen (*Crx) 5-325 Mg Tablet PO 1 tab Q4H PRN Administration Pain Rated 4-6 Apixaban 5 mg 07/24/24 10:25 07/25/24 08:51 Apixaban 5 Mg Tablet PO 5 mg Q12HR LETICIA Administration Empagliflozin 10 mg 07/25/24 09:00 07/25/24 08:51 Empagliflozin 10 Mg Tablet PO 10 mg DAILY LETICIA Administration Furosemide 40 mg 07/24/24 10:20 07/25/24 09:00 Furosemide Inj 40 Mg/4 Ml Vial IV PUSH 40 mg BID LETICIA Administration Guaifenesin/Dextromethorphan 10 ml 07/24/24 16:24 07/24/24 17:31 Guaifenesin/Dextromethorphan 10 Ml Udc PO 10 ml TID PRN Administration Cough Melatonin 5 mg 07/24/24 21:00 07/24/24 20:38 Melatonin 5 Mg Tablet PO 5 mg HS LETICIA Administration Metoprolol Succinate 50 mg 07/25/24 15:00 Metoprolol Succinate Ext Rel 50 Mg Tabcr PO QAM LETICIA Metoprolol Tartrate 5 mg 07/24/24 10:19 Metoprolol Tartrate Inj 5 Mg/5 Ml Vial IV PUSH Q4H PRN Tachycardia Ondansetron HCl 4 mg 07/23/24 20:07 Ondansetron Inj 4 Mg/2 Ml Vial IV PUSH Q4H PRN Nausea Perflutren Lipid Microsphere 0 ml 07/23/24 20:07 Perflutren Lipid Microspheres 1.5 Ml Vial Diluted To 10 Ml Total Volume IV PUSH 07/26/24 20:08 ONCE PRN adequate visualization Protocol Sacubitril/Valsartan 1 tab 07/24/24 21:00 07/25/24 08:52 Sacubitril/Valsartan 24-26 Mg Tablet PO 1 tab Q12HR LETICIA Administration Spironolactone 25 mg 07/24/24 14:55 07/25/24 08:52 Spironolactone 25 Mg Tablet PO 25 mg QAM LETICIA Administration Radiology Results: ITS Impressions Chest X-Ray 07/23/24 18:15 IMPRESSION: Pulmonary opacities may represent moderate edema with a moderate left pleural effusion. Infection not excluded. Labs Labs: Laboratory Results - last 24 hr 07/23/24 07/25/24 23:42 04:42 WBC 7.9 RBC 4.71 Hgb 14.4 Hct 41.9 L MCV 89.0 MCH 30.6 MCHC 34.4 RDW 12.8 Plt Count 158 MPV 10.8 H Immature Gran % (Auto) 0.4 Neut % (Auto) 76.6 H Lymph % (Auto) 14.6 L [place] % (Auto) 7.8 Eos % (Auto) 0.5 Baso % (Auto) 0.1 L Lymph # (Auto) 1.16 [place] # (Auto) 0.6 Eos # (Auto) 0.0 Baso # (Auto) 0.0 Abs Immat Gran (auto) 0.03 Absolute Neuts (auto) 6.1 Absolute Nucleated RBC 0.000 Nucleated RBC % 0.0 Sodium 137 Potassium 4.4 Chloride 100 Carbon Dioxide 26 Anion Gap 11 BUN 45 H Creatinine 1.80 H Estim Creat Clear Calc 35 Estimated GFR 37 L Glucose 144 H Calcium 8.8 Magnesium 2.3 Total Bilirubin 1.0 AST 25 ALT 23 Alkaline Phosphatase 81 Troponin I 0.067 H* Total Protein 6.0 L Albumin 3.8 TSH 3.080
--- NOTE | 2024-07-25 12:43 | PCRCNOTE ---
Patient given home O2 evaluation. Patient walked for 230 feet. Patient did not qualify for home oxygen. Rest O2 sat was 93% HR 99 and post O2 sat was 92% HR 100. Sofia Stern Respiratory Therapist
[2024-07-25] MEDS: METOPROLOL SUCCINATE EXT REL 50 MG TABCR PO (13:42)
[2024-07-25] MEDS: busPIRone HCL 5 MG TABLET PO ×2 (14:40→21:12)
--- NOTE | 2024-07-25 16:19 | P.PNIM_ITS ---
Progress Note: A&P Assessment and Plan (1) Acute heart failure: Code(s): I50.9 - Heart failure, unspecified Status: Acute (2) Atrial fibrillation with RVR: Code(s): I48.91 - Unspecified atrial fibrillation Status: Acute Plan Atrial fibrillation with rapid ventricular response Status post Cardizem infusion [id number] of 4, continue Eliquis 5mg bid continue Metoprolol 50mg and monitor overnight Cardiology consulted and patient Monitor electrolytes. 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 Chest x-ray showed pulmonary edema rule out infection Continue Lasix. Cardiology increased Metoprolol to 50mg monitor onvernight Hypertension Titrate her medications with clinical course. DVT prophylaxis on Eliquis. Next Surrogate decision maker Catina James Subjective Date/time seen: 07/25/24 16:19 Interval history: Patient comfortable at bedside and weaned off oxygen this morning ECHO EF 20-25%, cardiology deems it is tachycardia induced Review of Systems Review of Systems: Other systems reviewed and negative except as noted in the HPI above. Exam Narrative: General: alert and comfortable Eyes: EOMI, PERRLA ENNT External ears normal, Neck is supple, no masses, Respiratory systems: Clear to auscultation Cardiovascular S1, S2, normal rhythm, no murmur, rub, or gallop; no thrill or palpable murmurs on palpation. Gastrointestinal: soft, non-tender, and non-distended abdomen with no masses; BS present Skin: no rash, lesions, ulcerations, subcutaneous nodules or induration Musculoskeletal: no abnormality and no tenderness, normal ROM Neurologic: Alert and oriented x3, non focal Mental Status Exam: normal affect Objective Data Vital Signs Vital Signs: Vital Signs - 24 hr 07/24/24 18:00 07/24/24 20:00 07/24/24 20:37 Temperature 98.3 F Pulse Rate 74 75 80 Respiratory Rate 24 H Blood Pressure 104/74 Pulse Oximetry 93 Oxygen Delivery Oxygen Flow Rate Fraction of Inspired Oxygen 07/24/24 20:00 07/24/24 20:00 07/24/24 22:00 Temperature Pulse Rate 77 74 Respiratory Rate Blood Pressure Pulse Oximetry 93 Oxygen Delivery Nasal Cannula Oxygen Flow Rate 4 Fraction of Inspired Oxygen 07/24/24 23:31 07/24/24 23:38 07/25/24 00:00 Temperature 97.5 F L Pulse Rate 76 72 Respiratory Rate 24 H Blood Pressure 115/63 Pulse Oximetry 95 95 Oxygen Delivery Nasal Cannula Oxygen Flow Rate 4 Fraction of Inspired Oxygen 07/25/24 01:56 07/25/24 04:27 07/25/24 04:00 Temperature Pulse Rate 73 84 Respiratory Rate Blood Pressure Pulse Oximetry 98 Oxygen Delivery Nasal Cannula Oxygen Flow Rate 4 Fraction of Inspired Oxygen 07/25/24 04:00 07/25/24 04:00 07/25/24 06:00 Temperature 98.3 F Pulse Rate 94 80 84 Respiratory Rate 24 H Blood Pressure 106/79 Pulse Oximetry 92 Oxygen Delivery Oxygen Flow Rate Fraction of Inspired Oxygen 07/25/24 08:00 07/25/24 09:00 07/25/24 08:00 Temperature 97.2 F L Pulse Rate 101 H 99 99 Respiratory Rate 20 Blood Pressure 118/79 Pulse Oximetry 96 Oxygen Delivery Oxygen Flow Rate Fraction of Inspired Oxygen 07/25/24 09:59 07/25/24 12:00 07/25/24 12:30 Temperature 97.4 F L Pulse Rate 99 105 H 99 Respiratory Rate 20 Blood Pressure 124/72 Pulse Oximetry 96 93 Oxygen Delivery Room Air Oxygen Flow Rate Fraction of Inspired Oxygen 07/25/24 12:36 07/25/24 12:00 07/25/24 13:42 Temperature Pulse Rate 110 H 110 H 121 H Respiratory Rate Blood Pressure Pulse Oximetry 91 Oxygen Delivery Room Air Oxygen Flow Rate Fraction of Inspired Oxygen 07/25/24 16:00 07/25/24 16:00 Temperature Pulse Rate 121 H 121 H Respiratory Rate Blood Pressure Pulse Oximetry Oxygen Delivery Room Air Oxygen Flow Rate Fraction of Inspired Oxygen 36 Intake/Output Intake/Output: Intake & Output 07/22/24 07/23/24 07/24/24 07/25/24 23:59 23:59 23:59 23:59 Intake Total 35.9 1238.1 780 Output Total 775 1000 Balance 35.9 463.1 -220 Meds/Results Medications: Active Medications Generic Name Dose Route Start Last Admin Trade Name Freq PRN Reason Stop Dose Admin Acetaminophen 650 mg 07/23/24 20:07 07/24/24 20:51 Acetaminophen 325 Mg Tablet PO 650 mg Q4H PRN Administration Mild Pain (1-3) or Fever Hydrocodone Bitart/Acetaminophen 1 tab 07/23/24 20:07 07/24/24 01:57 Hydrocodone/Acetaminophen (*Crx) 5-325 Mg Tablet PO 1 tab Q4H PRN Administration Pain Rated 4-6 Apixaban 5 mg 07/24/24 10:25 07/25/24 08:51 Apixaban 5 Mg Tablet PO 5 mg Q12HR LETICIA Administration Buspirone HCl 5 mg 07/25/24 14:40 Buspirone Hcl 5 Mg Tablet PO Q12HR LETICIA Empagliflozin 10 mg 07/25/24 09:00 07/25/24 08:51 Empagliflozin 10 Mg Tablet PO 10 mg DAILY LETICIA Administration Furosemide 40 mg 07/24/24 10:20 07/25/24 09:00 Furosemide Inj 40 Mg/4 Ml Vial IV PUSH 40 mg BID LETICIA Administration Guaifenesin/Dextromethorphan 10 ml 07/24/24 16:24 07/24/24 17:31 Guaifenesin/Dextromethorphan 10 Ml Udc PO 10 ml TID PRN Administration Cough Melatonin 5 mg 07/24/24 21:00 07/24/24 20:38 Melatonin 5 Mg Tablet PO 5 mg HS LETICIA Administration Metoprolol Succinate 50 mg 07/25/24 15:00 07/25/24 13:42 Metoprolol Succinate Ext Rel 50 Mg Tabcr PO 50 mg QAM LETICIA Administration Metoprolol Tartrate 5 mg 07/24/24 10:19 Metoprolol Tartrate Inj 5 Mg/5 Ml Vial IV PUSH Q4H PRN Tachycardia Ondansetron HCl 4 mg 07/23/24 20:07 Ondansetron Inj 4 Mg/2 Ml Vial IV PUSH Q4H PRN Nausea Perflutren Lipid Microsphere 0 ml 07/23/24 20:07 Perflutren Lipid Microspheres 1.5 Ml Vial Diluted To 10 Ml Total Volume IV PUSH 07/26/24 20:08 ONCE PRN adequate visualization Protocol Sacubitril/Valsartan 1 tab 07/24/24 21:00 07/25/24 08:52 Sacubitril/Valsartan 24-26 Mg Tablet PO 1 tab Q12HR LETICIA Administration Spironolactone 25 mg 07/24/24 14:55 07/25/24 08:52 Spironolactone 25 Mg Tablet PO 25 mg QAM LETICIA Administration Radiology Results: ITS Impressions Chest X-Ray 07/23/24 18:15 IMPRESSION: Pulmonary opacities may represent moderate edema with a moderate left pleural effusion. Infection not excluded. Chest CT 07/25/24 11:45 IMPRESSION: 1. Moderate emphysema with patchy diffuse bilateral lung disease most likely multifocal pneumonia with differential including pulmonary edema or chronic interstitial lung disease. 2. Mild wall thickening along the anteromedial margin of a large cavitary lesion in the lingula most likely related to either emphysema or chronic infection with some peripheral atelectasis/scarring. 3. Small bilateral pleural effusions. 4. Cardiomegaly. Labs Labs: Laboratory Results - last 24 hr 07/25/24 04:42 WBC 7.9 RBC 4.71 Hgb 14.4 Hct 41.9 L MCV 89.0 MCH 30.6 MCHC 34.4 RDW 12.8 Plt Count 158 MPV 10.8 H Immature Gran % (Auto) 0.4 Neut % (Auto) 76.6 H Lymph % (Auto) 14.6 L [place] % (Auto) 7.8 Eos % (Auto) 0.5 Baso % (Auto) 0.1 L Lymph # (Auto) 1.16 [place] # (Auto) 0.6 Eos # (Auto) 0.0 Baso # (Auto) 0.0 Abs Immat Gran (auto) 0.03 Absolute Neuts (auto) 6.1 Absolute Nucleated RBC 0.000 Nucleated RBC % 0.0 Sodium 137 Potassium 4.4 Chloride 100 Carbon Dioxide 26 Anion Gap 11 BUN 45 H Creatinine 1.80 H Estim Creat Clear Calc 35 Estimated GFR 37 L Glucose 144 H Calcium 8.8 Magnesium 2.3 Total Bilirubin 1.0 AST 25 ALT 23 Alkaline Phosphatase 81 Troponin I 0.067 H* Total Protein 6.0 L Albumin 3.8
[2024-07-25] MEDS: ACETAMINOPHEN 325 MG TABLET 650 MG PO (16:27)
[2024-07-25] MEDS: MELATONIN 5 MG TABLET PO (21:12)
[2024-07-26] VITALS (20 sets, daily range): BP systolic 110–144; BP diastolic 66–92; PULSE 60–233; RESP 18–20; TEMP 36.7–37.3; O2SAT 91–96
[2024-07-26 05:36] LABS: Basophils Percent Auto 0.3 % (0.2-1.2); Eosinophils Absolute Auto 0.1 K/mm3 (0-0.3); Eosinophils Percent Auto 1.4 % (0-4.4); Hematocrit 40.7 % (42.0-52.0); Hemoglobin 14.1 g/dL (14.0-18.0); Immature Granulocyte Absolute 0.03 K/mm3 (0.00-0.031); Immature Granulocyte Percent A 0.4 % (0-0.5); Lymphocytes Absolute Auto 1.06 K/mm3 (0.9-3.2); Lymphocytes Percent Auto 14.6 % (18.3-44.2); Mean Corpuscular HGB Conc 34.6 g/dl (32-36); Mean Corpuscular Hemoglobin 30.4 pg (26-34); Mean Corpuscular Volume 87.7 fl (80-100); Mean Platelet Volume 10.9 fl (7.4-10.4); Monocytes Absolute Auto 0.6 K/mm3 (0.1-0.6); Monocytes Percent Auto 7.9 % (2.6-8.5); Neutrophils Absolute Auto 5.5 K/mm3 (1.3-6.7); Neutrophils Percent Auto 75.4 % (45.5-73.1); Platelet Count Result 152 k/mm3 (150-375); Red Blood Count 4.64 M/mm3 (4.6-6.20); Red Cell Distribution Width 12.8 % (11.5-14.5); White Blood Count 7.3 K/mm3 (4.5-10.0)
[2024-07-26 05:48] LABS: Alanine Aminotransferase 24 U/L (6-50); Albumin Level 3.4 g/dL (3.5-5.1); Alkaline Phosphatase 78 U/L (38-126); Anion Gap 8 mmol/L (4-12); Aspartate Amino Transferase 26 U/L (17-59); Blood Urea Nitrogen 41 mg/dL (9-20); Calcium 8.7 mg/dL (8.4-10.2); Carbon Dioxide 24 mmol/L (22-30); Chloride 105 mmol/L (98-107); Estimated CRCL calculation 45 ml/min; Estimated Glomerular Filt Rate 49; Glucose 136 mg/dL (65-110); Magnesium 2.2 mg/dL (1.6-2.3); Potassium 4.1 mmol/L (3.4-5.0); Sodium 137 mmol/L (137-145)
[2024-07-26] MEDS: METOPROLOL SUCCINATE EXT REL 50 MG TABCR PO (08:30)
[2024-07-26] MEDS: FUROSEMIDE INJ 40 MG/4 ML VIAL IV PUSH ×2 (08:31→17:15)
[2024-07-26] MEDS: SACUBITRIL/VALSARTAN 24-26 MG TABLET 1 TAB PO ×2 (08:31→19:57)
[2024-07-26] MEDS: SPIRONOLACTONE 25 MG TABLET PO (08:31)
[2024-07-26] MEDS: EMPAGLIFLOZIN 10 MG TABLET PO (08:31)
[2024-07-26] MEDS: APIXABAN 5 MG TABLET PO ×2 (08:31→19:57)
[2024-07-26] MEDS: busPIRone HCL 5 MG TABLET PO ×2 (08:31→19:57)
[2024-07-26] MEDS: DIGOXIN INJ 250 MCG/ML 2 ML AMP (*BKC) 125 MCG IV PUSH (12:06)
--- NOTE | 2024-07-26 12:08 | PM.PNCARD ---
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 He is been placed on guideline directed medical therapy. I will and advance his metoprolol dosage today to 100 mg to provide better heart rate control. He is hemodynamically stable otherwise I but do not believe he requires PEDRO cardioversion during this admission it is certainly acceptable to rate control him and then provide cardioversion after at least 4 weeks of anticoagulation. Would expect him to be discharged in the next 24-48 hours and follow-up will be arranged in the office with Dr. Kishor Boykin MD [facility] Subjective Date/time seen: Date of service: 07/26/24 12:08 Interval history: 78-year-old man admitted to hospital shortness of breath found to have atrial fibrillation and echocardiographic evidence of left ventricular systolic dysfunction. He feels better this morning in terms of less shortness of breath and less coughing. He has been started on medical therapy including Aldactone, Entresto and metoprolol tartrate. Telemetry today is suspicious for conversion to sinus rhythm. Date of service 07/26/2024: Patient is rather comfortable offers no significant complaints currently he is primarily complaining about sleeping poorly at the hospital. Shortness of breath has markedly improved since admission. Telemetry demonstrates atrial fibrillation with heart rate at times 80-90 with activity in the room heart rate up to 140 at times. Exam Const: General: comfortable and no acute distress Other: Tall elderly man wearing nasal cannula oxygen HENMT: Mouth: Yes moist mucous membranes Eyes: General: appearance normal, both eyes and all related structures Sclera: sclerae normal Neck: Neck: supple and no JVD Resp: Effort & Inspection: normal respiratory effort Auscultation: clear to auscultation bilaterally and diminished lung sounds Cardio: Rate: regular rate and tachycardic Rhythm: abnormal rhythm irregularly irregular Heart sounds: no murmurs Other: no obvious murmur or gallop GI: Auscultation: normal bowel sounds Skin: General skin exam: normal color Neuro: Speech: normal speech Other: alert and oriented x3 Psych: Mental Status: mental status grossly normal Affect: normal affect Objective Data Vital Signs Vital Signs: Vital Signs - 24 hr 07/25/24 12:30 07/25/24 12:36 07/25/24 13:42 Temperature Pulse Rate 99 110 H 121 H Respiratory Rate Blood Pressure Pulse Oximetry 93 91 Oxygen Delivery Room Air Room Air Fraction of Inspired Oxygen 07/25/24 16:00 07/25/24 16:00 07/25/24 16:00 Temperature 36.7 C Pulse Rate 121 H 121 H 113 H Respiratory Rate 20 Blood Pressure 139/92 H Pulse Oximetry 97 Oxygen Delivery Room Air Fraction of Inspired Oxygen 36 07/25/24 16:45 07/25/24 18:54 07/26/24 00:00 Temperature 36.6 C Pulse Rate 113 H 96 120 H Respiratory Rate 24 H 20 Blood Pressure 144/83 H 129/92 H Pulse Oximetry 95 94 Oxygen Delivery Fraction of Inspired Oxygen 07/25/24 20:00 07/25/24 22:00 07/26/24 00:00 Temperature Pulse Rate 118 H 98 100 Respiratory Rate Blood Pressure Pulse Oximetry Oxygen Delivery Fraction of Inspired Oxygen 07/26/24 02:00 07/26/24 04:00 07/26/24 04:00 Temperature 36.7 C Pulse Rate 100 105 H 60 Respiratory Rate 18 Blood Pressure 123/66 Pulse Oximetry 93 Oxygen Delivery Fraction of Inspired Oxygen 07/26/24 06:00 07/26/24 07:48 07/26/24 08:30 Temperature 36.7 C Pulse Rate 115 H 153 H 130 H Respiratory Rate 18 Blood Pressure 110/74 Pulse Oximetry 95 Oxygen Delivery Fraction of Inspired Oxygen 07/26/24 12:01 07/26/24 12:06 Temperature 36.7 C Pulse Rate 140 H 152 H Respiratory Rate 18 Blood Pressure 118/72 Pulse Oximetry 96 Oxygen Delivery Fraction of Inspired Oxygen Intake/Output Intake/Output: Intake & Output 07/23/24 07/24/24 07/25/24 07/26/24 23:59 23:59 23:59 23:59 Intake Total 35.9 1238.1 1570 293 Output Total 775 1000 250 Balance 35.9 463.1 570 43 Meds/Results Medications: Active Medications Generic Name Dose Route Start Last Admin Trade Name Freq PRN Reason Stop Dose Admin Acetaminophen 650 mg 07/23/24 20:07 07/25/24 16:27 Acetaminophen 325 Mg Tablet PO 650 mg Q4H PRN Administration Mild Pain (1-3) or Fever Hydrocodone Bitart/Acetaminophen 1 tab 07/23/24 20:07 07/24/24 01:57 Hydrocodone/Acetaminophen (*Crx) 5-325 Mg Tablet PO 1 tab Q4H PRN Administration Pain Rated 4-6 Apixaban 5 mg 07/24/24 10:25 07/26/24 08:31 Apixaban 5 Mg Tablet PO 5 mg Q12HR LETICIA Administration Buspirone HCl 5 mg 07/25/24 14:40 07/26/24 08:31 Buspirone Hcl 5 Mg Tablet PO 5 mg Q12HR LETICIA Administration Empagliflozin 10 mg 07/25/24 09:00 07/26/24 08:31 Empagliflozin 10 Mg Tablet PO 10 mg DAILY LETICIA Administration Furosemide 40 mg 07/24/24 10:20 07/26/24 08:31 Furosemide Inj 40 Mg/4 Ml Vial IV PUSH 40 mg BID LETICIA Administration Guaifenesin/Dextromethorphan 10 ml 07/24/24 16:24 07/24/24 17:31 Guaifenesin/Dextromethorphan 10 Ml Udc PO 10 ml TID PRN Administration Cough Melatonin 5 mg 07/24/24 21:00 07/25/24 21:12 Melatonin 5 Mg Tablet PO 5 mg HS LETICIA Administration Metoprolol Succinate 100 mg 07/27/24 09:00 Metoprolol Succinate Ext Rel 50 Mg Tabcr PO QAM LETICIA Metoprolol Tartrate 5 mg 07/24/24 10:19 Metoprolol Tartrate Inj 5 Mg/5 Ml Vial IV PUSH Q4H PRN Tachycardia Ondansetron HCl 4 mg 07/23/24 20:07 Ondansetron Inj 4 Mg/2 Ml Vial IV PUSH Q4H PRN Nausea Perflutren Lipid Microsphere 0 ml 07/23/24 20:07 Perflutren Lipid Microspheres 1.5 Ml Vial Diluted To 10 Ml Total Volume IV PUSH 07/26/24 20:08 ONCE PRN adequate visualization Protocol Sacubitril/Valsartan 1 tab 07/24/24 21:00 07/26/24 08:31 Sacubitril/Valsartan 24-26 Mg Tablet PO 1 tab Q12HR LETICIA Administration Spironolactone 25 mg 07/24/24 14:55 07/26/24 08:31 Spironolactone 25 Mg Tablet PO 25 mg QAM LETICIA Administration Radiology Results: ITS Impressions Chest X-Ray 07/23/24 18:15 IMPRESSION: Pulmonary opacities may represent moderate edema with a moderate left pleural effusion. Infection not excluded. Chest CT 07/25/24 11:45 IMPRESSION: 1. Moderate emphysema with patchy diffuse bilateral lung disease most likely multifocal pneumonia with differential including pulmonary edema or chronic interstitial lung disease. 2. Mild wall thickening along the anteromedial margin of a large cavitary lesion in the lingula most likely related to either emphysema or chronic infection with some peripheral atelectasis/scarring. 3. Small bilateral pleural effusions. 4. Cardiomegaly. Labs Labs: Laboratory Results - last 24 hr 07/26/24 05:11 WBC 7.3 RBC 4.64 Hgb 14.1 Hct 40.7 L MCV 87.7 MCH 30.4 MCHC 34.6 RDW 12.8 Plt Count 152 MPV 10.9 H Immature Gran % (Auto) 0.4 Neut % (Auto) 75.4 H Lymph % (Auto) 14.6 L [place] % (Auto) 7.9 Eos % (Auto) 1.4 Baso % (Auto) 0.3 Lymph # (Auto) 1.06 [place] # (Auto) 0.6 Eos # (Auto) 0.1 Baso # (Auto) 0.0 Abs Immat Gran (auto) 0.03 Absolute Neuts (auto) 5.5 Absolute Nucleated RBC 0.000 Nucleated RBC % 0.0 Sodium 137 Potassium 4.1 Chloride 105 Carbon Dioxide 24 Anion Gap 8 BUN 41 H Creatinine 1.40 H Estim Creat Clear Calc 45 Estimated GFR 49 L Glucose 136 H Calcium 8.7 Magnesium 2.2 Total Bilirubin 1.0 AST 26 ALT 24 Alkaline Phosphatase 78 Total Protein 6.0 L Albumin 3.4 L
--- NOTE | 2024-07-26 17:33 | PM.IMPN ---
Progress Note: A&P Assessment and Plan (1) Acute heart failure: Code(s): I50.9 - Heart failure, unspecified Status: Acute (2) Atrial fibrillation with RVR: Code(s): I48.91 - Unspecified atrial fibrillation Status: Acute Plan Atrial fibrillation with rapid ventricular response Status post Cardizem infusion [id number] of 4, continue Eliquis 5mg bid adjusted Metoprolol to 100mg by cards and monitor overnight Cardiology following Monitor electrolytes. 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 Chest x-ray showed pulmonary edema rule out infection Continue Lasix. Cardiology increased Metoprolol to 100mg monitor overnight Hypertension Titrate her medications with clinical course. DVT prophylaxis on Eliquis. Surrogate decision maker Catina James Subjective Date/time seen: 07/26/24 17:33 Interval history: Patient comfortable at bedside however HR elevated in 120-130s cardiology adjusted Metoprolol to 100mg bid monitor overnight Review of Systems Review of Systems: Other systems reviewed and negative except as noted in the HPI above. Exam Narrative: General: alert and comfortable Eyes: EOMI, PERRLA ENNT External ears normal, Neck is supple, no masses, Respiratory systems: Clear to auscultation Cardiovascular S1, S2, normal rhythm, no murmur, rub, or gallop; no thrill or palpable murmurs on palpation. Gastrointestinal: soft, non-tender, and non-distended abdomen with no masses; BS present Skin: no rash, lesions, ulcerations, subcutaneous nodules or induration Musculoskeletal: no abnormality and no tenderness, normal ROM Neurologic: Alert and oriented x3, non focal Mental Status Exam: normal affect Objective Data Vital Signs Vital Signs: Vital Signs - 24 hr 07/25/24 18:54 07/26/24 00:00 07/25/24 20:00 Temperature 97.8 F Pulse Rate 96 120 H 118 H Respiratory Rate 24 H 20 Blood Pressure 144/83 H 129/92 H Pulse Oximetry 95 94 07/25/24 22:00 07/26/24 00:00 07/26/24 02:00 Temperature Pulse Rate 98 100 100 Respiratory Rate Blood Pressure Pulse Oximetry 07/26/24 04:00 07/26/24 04:00 07/26/24 06:00 Temperature 98.1 F Pulse Rate 105 H 60 115 H Respiratory Rate 18 Blood Pressure 123/66 Pulse Oximetry 93 07/26/24 07:48 07/26/24 08:30 07/26/24 12:01 Temperature 98.1 F 98.1 F Pulse Rate 153 H 130 H 140 H Respiratory Rate 18 18 Blood Pressure 110/74 118/72 Pulse Oximetry 95 96 07/26/24 12:06 07/26/24 08:00 07/26/24 10:00 Temperature Pulse Rate 152 H 233 H 109 H Respiratory Rate Blood Pressure Pulse Oximetry 07/26/24 16:25 Temperature 98.2 F Pulse Rate 101 H Respiratory Rate 18 Blood Pressure 132/88 Pulse Oximetry 94 Intake/Output Intake/Output: Intake & Output 07/23/24 07/24/24 07/25/24 07/26/24 23:59 23:59 23:59 23:59 Intake Total 35.9 1238.1 1570 743 Output Total 775 1000 1150 Balance 35.9 463.1 570 -407 Meds/Results Medications: Active Medications Generic Name Dose Route Start Last Admin Trade Name Freq PRN Reason Stop Dose Admin Acetaminophen 650 mg 07/23/24 20:07 07/25/24 16:27 Acetaminophen 325 Mg Tablet PO 650 mg Q4H PRN Administration Mild Pain (1-3) or Fever Hydrocodone Bitart/Acetaminophen 1 tab 07/23/24 20:07 07/24/24 01:57 Hydrocodone/Acetaminophen (*Crx) 5-325 Mg Tablet PO 1 tab Q4H PRN Administration Pain Rated 4-6 Apixaban 5 mg 07/24/24 10:25 07/26/24 08:31 Apixaban 5 Mg Tablet PO 5 mg Q12HR LETICIA Administration Buspirone HCl 5 mg 07/25/24 14:40 07/26/24 08:31 Buspirone Hcl 5 Mg Tablet PO 5 mg Q12HR LETICIA Administration Empagliflozin 10 mg 07/25/24 09:00 07/26/24 08:31 Empagliflozin 10 Mg Tablet PO 10 mg DAILY LETICIA Administration Furosemide 40 mg 07/24/24 10:20 07/26/24 17:15 Furosemide Inj 40 Mg/4 Ml Vial IV PUSH 40 mg BID LETICIA Administration Guaifenesin/Dextromethorphan 10 ml 07/24/24 16:24 07/24/24 17:31 Guaifenesin/Dextromethorphan 10 Ml Udc PO 10 ml TID PRN Administration Cough Melatonin 5 mg 07/24/24 21:00 07/25/24 21:12 Melatonin 5 Mg Tablet PO 5 mg HS LETICIA Administration Metoprolol Succinate 100 mg 07/27/24 09:00 Metoprolol Succinate Ext Rel 50 Mg Tabcr PO QAM LETICIA Metoprolol Tartrate 5 mg 07/24/24 10:19 Metoprolol Tartrate Inj 5 Mg/5 Ml Vial IV PUSH Q4H PRN Tachycardia Ondansetron HCl 4 mg 07/23/24 20:07 Ondansetron Inj 4 Mg/2 Ml Vial IV PUSH Q4H PRN Nausea Perflutren Lipid Microsphere 0 ml 07/23/24 20:07 Perflutren Lipid Microspheres 1.5 Ml Vial Diluted To 10 Ml Total Volume IV PUSH 07/26/24 20:08 ONCE PRN adequate visualization Protocol Sacubitril/Valsartan 1 tab 07/24/24 21:00 07/26/24 08:31 Sacubitril/Valsartan 24-26 Mg Tablet PO 1 tab Q12HR LETICIA Administration Spironolactone 25 mg 07/24/24 14:55 07/26/24 08:31 Spironolactone 25 Mg Tablet PO 25 mg QAM [facility] Administration Trazodone HCl 50 mg 07/26/24 21:00 Trazodone Hcl 50 Mg Tablet PO HS [facility] Radiology Results: ITS Impressions Chest X-Ray 07/23/24 18:15 IMPRESSION: Pulmonary opacities may represent moderate edema with a moderate left pleural effusion. Infection not excluded. Chest CT 07/25/24 11:45 IMPRESSION: 1. Moderate emphysema with patchy diffuse bilateral lung disease most likely multifocal pneumonia with differential including pulmonary edema or chronic interstitial lung disease. 2. Mild wall thickening along the anteromedial margin of a large cavitary lesion in the lingula most likely related to either emphysema or chronic infection with some peripheral atelectasis/scarring. 3. Small bilateral pleural effusions. 4. Cardiomegaly. Labs Labs: Laboratory Results - last 24 hr 07/26/24 05:11 WBC 7.3 RBC 4.64 Hgb 14.1 Hct 40.7 L MCV 87.7 MCH 30.4 MCHC 34.6 RDW 12.8 Plt Count 152 MPV 10.9 H Immature Gran % (Auto) 0.4 Neut % (Auto) 75.4 H Lymph % (Auto) 14.6 L [place] % (Auto) 7.9 Eos % (Auto) 1.4 Baso % (Auto) 0.3 Lymph # (Auto) 1.06 [place] # (Auto) 0.6 Eos # (Auto) 0.1 Baso # (Auto) 0.0 Abs Immat Gran (auto) 0.03 Absolute Neuts (auto) 5.5 Absolute Nucleated RBC 0.000 Nucleated RBC % 0.0 Sodium 137 Potassium 4.1 Chloride 105 Carbon Dioxide 24 Anion Gap 8 BUN 41 H Creatinine 1.40 H Estim Creat Clear Calc 45 Estimated GFR 49 L Glucose 136 H Calcium 8.7 Magnesium 2.2 Total Bilirubin 1.0 AST 26 ALT 24 Alkaline Phosphatase 78 Total Protein 6.0 L Albumin 3.4 L
[2024-07-26] MEDS: traZODone HCL 50 MG TABLET PO (19:57)
[2024-07-26] MEDS: MELATONIN 5 MG TABLET PO (19:57)
[2024-07-26] MEDS: guaiFENesin/DEXTROMETHORPHAN 10 ML UDC PO (20:05)
[2024-07-26] MEDS: METOPROLOL TARTRATE INJ 5 MG/5 ML VIAL IV PUSH (20:05)
[2024-07-27] VITALS (23 sets, daily range): BP systolic 104–133; BP diastolic 72–95; PULSE 87–158; RESP 18–20; TEMP 36.9–37.6; O2SAT 93–97
[2024-07-27] MEDS: METOPROLOL TARTRATE INJ 5 MG/5 ML VIAL IV PUSH ×4 (04:18→17:55)
[2024-07-27] MEDS: guaiFENesin/DEXTROMETHORPHAN 10 ML UDC PO ×2 (04:19→20:19)
[2024-07-27 05:09] LABS: Basophils Percent Auto 0.3 % (0.2-1.2); Eosinophils Absolute Auto 0.1 K/mm3 (0-0.3); Eosinophils Percent Auto 1.4 % (0-4.4); Hematocrit 45.7 % (42.0-52.0); Hemoglobin 15.3 g/dL (14.0-18.0); Immature Granulocyte Absolute 0.03 K/mm3 (0.00-0.031); Immature Granulocyte Percent A 0.4 % (0-0.5); Lymphocytes Absolute Auto 1.14 K/mm3 (0.9-3.2); Lymphocytes Percent Auto 14.6 % (18.3-44.2); Mean Corpuscular HGB Conc 33.5 g/dl (32-36); Mean Corpuscular Hemoglobin 29.6 pg (26-34); Mean Corpuscular Volume 88.4 fl (80-100); Mean Platelet Volume 11.4 fl (7.4-10.4); Monocytes Absolute Auto 0.7 K/mm3 (0.1-0.6); Monocytes Percent Auto 9.2 % (2.6-8.5); Neutrophils Absolute Auto 5.8 K/mm3 (1.3-6.7); Neutrophils Percent Auto 74.1 % (45.5-73.1); Platelet Count Result 172 k/mm3 (150-375); Red Blood Count 5.17 M/mm3 (4.6-6.20); Red Cell Distribution Width 12.6 % (11.5-14.5); White Blood Count 7.8 K/mm3 (4.5-10.0)
[2024-07-27 05:29] LABS: Alanine Aminotransferase 30 U/L (6-50); Albumin Level 3.6 g/dL (3.5-5.1); Alkaline Phosphatase 97 U/L (38-126); Anion Gap 6 mmol/L (4-12); Aspartate Amino Transferase 28 U/L (17-59); Bilirubin,Total 1.2 mg/dL (0.2-1.3); Blood Urea Nitrogen 40 mg/dL (9-20); Carbon Dioxide 27 mmol/L (22-30); Chloride 103 mmol/L (98-107); Estimated CRCL calculation 39 ml/min; Estimated Glomerular Filt Rate 42; Glucose 147 mg/dL (65-110); Magnesium 2.2 mg/dL (1.6-2.3); Potassium 3.9 mmol/L (3.4-5.0); Sodium 136 mmol/L (137-145)
[2024-07-27] MEDS: SACUBITRIL/VALSARTAN 24-26 MG TABLET 1 TAB PO ×2 (08:18→20:19)
[2024-07-27] MEDS: APIXABAN 5 MG TABLET PO ×2 (08:18→20:19)
[2024-07-27] MEDS: busPIRone HCL 5 MG TABLET PO ×2 (08:19→20:19)
[2024-07-27] MEDS: METOPROLOL SUCCINATE EXT REL 50 MG TABCR 100 MG PO ×2 (08:19→17:00)
[2024-07-27] MEDS: EMPAGLIFLOZIN 10 MG TABLET PO (08:19)
[2024-07-27] MEDS: DOXYCYCLINE 100 MG/NS 100 ML 100 MG/100 ML BAG IVPB ×2 (08:20→20:14)
[2024-07-27] MEDS: cefTRIAXone 2 GM/NS 100 ML 2 GM/100 ML BAG IVPB (08:20)
[2024-07-27] MEDS: SPIRONOLACTONE 25 MG TABLET PO (08:20)
[2024-07-27] MEDS: FUROSEMIDE INJ 40 MG/4 ML VIAL IV PUSH ×2 (08:20→17:53)
[2024-07-27 08:57] LABS: Lactic Acid Reflex 1.3 mmol/L (0.7-2.0)
--- NOTE | 2024-07-27 11:48 | PM.PNCARD ---
Progress Note: A&P Assessment and Plan (1) Atrial fibrillation with RVR: Code(s): I48.91 - Unspecified atrial fibrillation Status: Acute Plan Persistent atrial fibrillation with RVR Cardiomyopathy ejection fraction 20-25% Hypertension Plan Increase metoprolol to 100 mg b.i.d. Lasix 40 mg IV. b.i.d. Digoxin 0.25 mg daily Continue Entresto Continue spironolactone Continue Eliquis Of the heart and it is not properly controlled will consider PEDRO cardioversion on Monday Subjective Date/time seen: 07/27/24 11:48 Interval history: Continue to have shortness of breath Telemetry AFib with RVR Review of Systems Review of Systems: All systems reviewed & are unremarkable except as noted in HPI and below Exam Const: General: comfortable and no acute distress Other: Tall elderly man wearing nasal cannula oxygen HENMT: Mouth: Yes moist mucous membranes Eyes: General: appearance normal, both eyes and all related structures Sclera: sclerae normal Neck: Neck: supple and no JVD Resp: Effort & Inspection: normal respiratory effort Auscultation: clear to auscultation bilaterally and diminished lung sounds Cardio: Rate: tachycardic Rhythm: abnormal rhythm irregularly irregular Heart sounds: no murmurs Other: no obvious murmur or gallop GI: Auscultation: normal bowel sounds Skin: General skin exam: normal color Neuro: Speech: normal speech Other: alert and oriented x3 Psych: Mental Status: mental status grossly normal Affect: normal affect Objective Data Vital Signs Vital Signs: Vital Signs - 24 hr 07/26/24 12:01 07/26/24 12:06 07/26/24 16:25 Temperature 36.7 C 36.8 C Pulse Rate 140 H 152 H 101 H Respiratory Rate 18 18 Blood Pressure 118/72 132/88 Pulse Oximetry 96 94 Oxygen Delivery Fraction of Inspired Oxygen 07/26/24 12:00 07/26/24 14:00 07/26/24 16:00 Temperature Pulse Rate 152 H 137 H 128 H Respiratory Rate Blood Pressure Pulse Oximetry Oxygen Delivery Fraction of Inspired Oxygen 07/26/24 18:00 07/26/24 19:53 07/26/24 20:05 Temperature 36.9 C Pulse Rate 115 H 116 H 152 H Respiratory Rate 20 Blood Pressure 144/84 H Pulse Oximetry 91 Oxygen Delivery Fraction of Inspired Oxygen 07/26/24 20:00 07/26/24 22:00 07/26/24 23:20 Temperature 37.3 C Pulse Rate 152 H 103 H 110 H Respiratory Rate 20 Blood Pressure 130/88 Pulse Oximetry 91 Oxygen Delivery Fraction of Inspired Oxygen 07/27/24 00:00 07/27/24 02:00 07/27/24 04:11 Temperature 36.9 C Pulse Rate 117 H 110 H 151 H Respiratory Rate 20 Blood Pressure 133/95 H Pulse Oximetry 93 Oxygen Delivery Fraction of Inspired Oxygen 07/27/24 04:18 07/27/24 04:00 07/27/24 05:59 Temperature Pulse Rate 153 H 152 H 116 H Respiratory Rate Blood Pressure Pulse Oximetry Oxygen Delivery Fraction of Inspired Oxygen 07/27/24 08:14 07/27/24 08:19 07/27/24 08:19 Temperature 37.0 C Pulse Rate 157 H 158 H 158 H Respiratory Rate 20 Blood Pressure 104/77 Pulse Oximetry 95 Oxygen Delivery Fraction of Inspired Oxygen 07/27/24 08:00 07/27/24 08:00 07/27/24 10:00 Temperature Pulse Rate 158 H 158 H 113 H Respiratory Rate 20 Blood Pressure Pulse Oximetry 95 Oxygen Delivery Room Air Fraction of Inspired Oxygen 36 07/27/24 11:34 Temperature 36.9 C Pulse Rate 123 H Respiratory Rate 20 Blood Pressure 110/73 Pulse Oximetry 96 Oxygen Delivery Fraction of Inspired Oxygen Intake/Output Intake/Output: Intake & Output 07/24/24 07/25/24 07/26/24 07/27/24 23:59 23:59 23:59 23:59 Intake Total 1238.1 1570 923 668 Output Total 775 1000 2150 Balance 463.1 570 -1227 668 Meds/Results Medications: Active Medications Generic Name Dose Route Start Last Admin Trade Name Freq PRN Reason Stop Dose Admin Acetaminophen 650 mg 07/23/24 20:07 07/25/24 16:27 Acetaminophen 325 Mg Tablet PO 650 mg Q4H PRN Administration Mild Pain (1-3) or Fever Hydrocodone Bitart/Acetaminophen 1 tab 07/23/24 20:07 07/24/24 01:57 Hydrocodone/Acetaminophen (*Crx) 5-325 Mg Tablet PO 1 tab Q4H PRN Administration Pain Rated 4-6 Apixaban 5 mg 07/24/24 10:25 07/27/24 08:18 Apixaban 5 Mg Tablet PO 5 mg Q12HR LETICIA Administration Buspirone HCl 5 mg 07/25/24 14:40 07/27/24 08:19 Buspirone Hcl 5 Mg Tablet PO 5 mg Q12HR LETICIA Administration Empagliflozin 10 mg 07/25/24 09:00 07/27/24 08:19 Empagliflozin 10 Mg Tablet PO 10 mg DAILY LETICIA Administration Furosemide 40 mg 07/24/24 10:20 07/27/24 08:20 Furosemide Inj 40 Mg/4 Ml Vial IV PUSH 40 mg BID LETICIA Administration Guaifenesin/Dextromethorphan 10 ml 07/24/24 16:24 07/27/24 04:19 Guaifenesin/Dextromethorphan 10 Ml Udc PO 10 ml TID PRN Administration Cough Ceftriaxone Sodium 2 gm in 100 mls @ 200 mls/hr 07/27/24 09:00 07/27/24 08:20 Rocephin 2 Gm/Ns 100 Ml IVPB 200 mls/hr Q24H LETICIA Administration Doxycycline Hyclate 100 mg in 100 mls @ 100 mls/hr 07/27/24 09:00 07/27/24 08:20 Vibramycin 100 Mg/Ns 100 Ml IVPB 100 mls/hr Q12HR LETICIA Administration Melatonin 5 mg 07/24/24 21:00 07/26/24 19:57 Melatonin 5 Mg Tablet PO 5 mg HS LETICIA Administration Metoprolol Succinate 100 mg 07/27/24 09:00 07/27/24 08:19 Metoprolol Succinate Ext Rel 50 Mg Tabcr PO 100 mg QAM LETICIA Administration Metoprolol Tartrate 5 mg 07/24/24 10:19 07/27/24 08:19 Metoprolol Tartrate Inj 5 Mg/5 Ml Vial IV PUSH 5 mg Q4H PRN Administration Tachycardia Ondansetron HCl 4 mg 07/23/24 20:07 Ondansetron Inj 4 Mg/2 Ml Vial IV PUSH Q4H PRN Nausea Sacubitril/Valsartan 1 tab 07/24/24 21:00 07/27/24 08:18 Sacubitril/Valsartan 24-26 Mg Tablet PO 1 tab Q12HR LETICIA Administration Spironolactone 25 mg 07/24/24 14:55 07/27/24 08:20 Spironolactone 25 Mg Tablet PO 25 mg QAM LETICIA Administration Trazodone HCl 50 mg 07/26/24 21:00 07/26/24 19:57 Trazodone Hcl 50 Mg Tablet PO 50 mg HS LETICIA Administration Radiology Results: ITS Impressions Chest X-Ray 07/23/24 18:15 IMPRESSION: Pulmonary opacities may represent moderate edema with a moderate left pleural effusion. Infection not excluded. Chest CT 07/25/24 11:45 IMPRESSION: 1. Moderate emphysema with patchy diffuse bilateral lung disease most likely multifocal pneumonia with differential including pulmonary edema or chronic interstitial lung disease. 2. Mild wall thickening along the anteromedial margin of a large cavitary lesion in the lingula most likely related to either emphysema or chronic infection with some peripheral atelectasis/scarring. 3. Small bilateral pleural effusions. 4. Cardiomegaly. Labs Labs: Laboratory Results - last 24 hr 07/27/24 07/27/24 04:13 08:25 WBC 7.8 RBC 5.17 Hgb 15.3 Hct 45.7 MCV 88.4 MCH 29.6 MCHC 33.5 RDW 12.6 Plt Count 172 MPV 11.4 H Immature Gran % (Auto) 0.4 Neut % (Auto) 74.1 H Lymph % (Auto) 14.6 L [place] % (Auto) 9.2 H Eos % (Auto) 1.4 Baso % (Auto) 0.3 Lymph # (Auto) 1.14 [place] # (Auto) 0.7 H Eos # (Auto) 0.1 Baso # (Auto) 0.0 Abs Immat Gran (auto) 0.03 Absolute Neuts (auto) 5.8 Absolute Nucleated RBC 0.000 Nucleated RBC % 0.0 Sodium 136 L Potassium 3.9 Chloride 103 Carbon Dioxide 27 Anion Gap 6 BUN 40 H Creatinine 1.60 H Estim Creat Clear Calc 39 Estimated GFR 42 L Glucose 147 H Lactic Acid 1.3 Calcium 9.0 Magnesium 2.2 Total Bilirubin 1.2 AST 28 ALT 30 Alkaline Phosphatase 97 Total Protein 7.0 Albumin 3.6
[2024-07-27] MEDS: SODIUM CHLORIDE 0.9% IV 1,000 ML 100 ML (12:12)
[2024-07-27] MEDS: DIGOXIN 250 MCG TABLET PO (12:13)
--- NOTE | 2024-07-27 12:16 | PM.IMPN ---
Progress Note: A&P Assessment and Plan (1) Acute heart failure: Code(s): I50.9 - Heart failure, unspecified Status: Acute (2) Atrial fibrillation with RVR: Code(s): I48.91 - Unspecified atrial fibrillation Status: Acute Plan Atrial fibrillation with rapid ventricular response Status post Cardizem infusion [id number] of 4, continue Eliquis 5mg bid adjusted Metoprolol to 100mg by cards and monitor overnight Cardiology following Monitor electrolytes. 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 Chest x-ray showed pulmonary edema rule out infection Continue Lasix. Cardiology increased Metoprolol to 100mg monitor overnight Pneumonia CT chest showed multifocal pneumonia Blood culture, MRSA Start Rocephin and Doxycycline monitor Hypertension Titrate her medications with clinical course. Insomnia Trazodone did not help last night give Seroquel 25mg nighttime monitor DVT prophylaxis on Eliquis. Surrogate decision maker Catina James Subjective Date/time seen: 07/27/24 12:16 Interval history: Continue to have shortness of breath CT chest showed pneumonia patient startd on Abx, HR still elevated Review of Systems Review of Systems: Other systems reviewed and negative except as noted in the HPI above. Exam Narrative: General: alert and comfortable Eyes: EOMI, PERRLA ENNT External ears normal, Neck is supple, no masses, Respiratory systems: Clear to auscultation Cardiovascular S1, S2, normal rhythm, no murmur, rub, or gallop; no thrill or palpable murmurs on palpation. Gastrointestinal: soft, non-tender, and non-distended abdomen with no masses; BS present Skin: no rash, lesions, ulcerations, subcutaneous nodules or induration Musculoskeletal: no abnormality and no tenderness, normal ROM Neurologic: Alert and oriented x3, non focal Mental Status Exam: normal affect Objective Data Vital Signs Vital Signs: Vital Signs - 24 hr 07/26/24 16:25 07/26/24 14:00 07/26/24 16:00 Temperature 98.2 F Pulse Rate 101 H 137 H 128 H Respiratory Rate 18 Blood Pressure 132/88 Pulse Oximetry 94 Oxygen Delivery Fraction of Inspired Oxygen 07/26/24 18:00 07/26/24 19:53 07/26/24 20:05 Temperature 98.4 F Pulse Rate 115 H 116 H 152 H Respiratory Rate 20 Blood Pressure 144/84 H Pulse Oximetry 91 Oxygen Delivery Fraction of Inspired Oxygen 07/26/24 20:00 07/26/24 22:00 07/26/24 23:20 Temperature 99.1 F Pulse Rate 152 H 103 H 110 H Respiratory Rate 20 Blood Pressure 130/88 Pulse Oximetry 91 Oxygen Delivery Fraction of Inspired Oxygen 07/27/24 00:00 07/27/24 02:00 07/27/24 04:11 Temperature 98.5 F Pulse Rate 117 H 110 H 151 H Respiratory Rate 20 Blood Pressure 133/95 H Pulse Oximetry 93 Oxygen Delivery Fraction of Inspired Oxygen 07/27/24 04:18 07/27/24 04:00 07/27/24 05:59 Temperature Pulse Rate 153 H 152 H 116 H Respiratory Rate Blood Pressure Pulse Oximetry Oxygen Delivery Fraction of Inspired Oxygen 07/27/24 08:14 07/27/24 08:19 07/27/24 08:19 Temperature 98.6 F Pulse Rate 157 H 158 H 158 H Respiratory Rate 20 Blood Pressure 104/77 Pulse Oximetry 95 Oxygen Delivery Fraction of Inspired Oxygen 07/27/24 08:00 07/27/24 08:00 07/27/24 10:00 Temperature Pulse Rate 158 H 158 H 113 H Respiratory Rate 20 Blood Pressure Pulse Oximetry 95 Oxygen Delivery Room Air Fraction of Inspired Oxygen 36 07/27/24 11:34 07/27/24 12:13 Temperature 98.4 F Pulse Rate 123 H 115 H Respiratory Rate 20 Blood Pressure 110/73 Pulse Oximetry 96 Oxygen Delivery Fraction of Inspired Oxygen Intake/Output Intake/Output: Intake & Output 07/24/24 07/25/24 07/26/24 07/27/24 23:59 23:59 23:59 23:59 Intake Total 1238.1 1570 923 668 Output Total 775 1000 2150 Balance 463.1 570 -1227 668 Meds/Results Medications: Active Medications Generic Name Dose Route Start Last Admin Trade Name Freq PRN Reason Stop Dose Admin Acetaminophen 650 mg 07/23/24 20:07 07/25/24 16:27 Acetaminophen 325 Mg Tablet PO 650 mg Q4H PRN Administration Mild Pain (1-3) or Fever Hydrocodone Bitart/Acetaminophen 1 tab 07/23/24 20:07 07/24/24 01:57 Hydrocodone/Acetaminophen (*Crx) 5-325 Mg Tablet PO 1 tab Q4H PRN Administration Pain Rated 4-6 Apixaban 5 mg 07/24/24 10:25 07/27/24 08:18 Apixaban 5 Mg Tablet PO 5 mg Q12HR LETICIA Administration Buspirone HCl 5 mg 07/25/24 14:40 07/27/24 08:19 Buspirone Hcl 5 Mg Tablet PO 5 mg Q12HR LETICIA Administration Digoxin 250 mcg 07/27/24 11:55 07/27/24 12:13 Digoxin 250 Mcg Tablet PO 250 mcg QAM LETICIA Administration Empagliflozin 10 mg 07/25/24 09:00 07/27/24 08:19 Empagliflozin 10 Mg Tablet PO 10 mg DAILY LETICIA Administration Furosemide 40 mg 07/24/24 10:20 07/27/24 08:20 Furosemide Inj 40 Mg/4 Ml Vial IV PUSH 40 mg BID LETICIA Administration Guaifenesin/Dextromethorphan 10 ml 07/24/24 16:24 07/27/24 04:19 Guaifenesin/Dextromethorphan 10 Ml Udc PO 10 ml TID PRN Administration Cough Ceftriaxone Sodium 2 gm in 100 mls @ 200 mls/hr 07/27/24 09:00 07/27/24 08:20 Rocephin 2 Gm/Ns 100 Ml IVPB 200 mls/hr Q24H LETICIA Administration Doxycycline Hyclate 100 mg in 100 mls @ 100 mls/hr 07/27/24 09:00 07/27/24 08:20 Vibramycin 100 Mg/Ns 100 Ml IVPB 100 mls/hr Q12HR LETICIA Administration Melatonin 5 mg 07/24/24 21:00 07/26/24 19:57 Melatonin 5 Mg Tablet PO 5 mg HS LETICIA Administration Metoprolol Succinate 100 mg 07/27/24 17:00 Metoprolol Succinate Ext Rel 50 Mg Tabcr PO BID LETICIA Metoprolol Tartrate 5 mg 07/24/24 10:19 07/27/24 08:19 Metoprolol Tartrate Inj 5 Mg/5 Ml Vial IV PUSH 5 mg Q4H PRN Administration Tachycardia Ondansetron HCl 4 mg 07/23/24 20:07 Ondansetron Inj 4 Mg/2 Ml Vial IV PUSH Q4H PRN Nausea Sacubitril/Valsartan 1 tab 07/24/24 21:00 07/27/24 08:18 Sacubitril/Valsartan 24-26 Mg Tablet PO 1 tab Q12HR LETICIA Administration Spironolactone 25 mg 07/24/24 14:55 07/27/24 08:20 Spironolactone 25 Mg Tablet PO 25 mg QAM LETICIA Administration Trazodone HCl 50 mg 07/26/24 21:00 07/26/24 19:57 Trazodone Hcl 50 Mg Tablet PO 50 mg HS LETICIA Administration Radiology Results: ITS Impressions Chest X-Ray 07/23/24 18:15 IMPRESSION: Pulmonary opacities may represent moderate edema with a moderate left pleural effusion. Infection not excluded. Chest CT 07/25/24 11:45 IMPRESSION: 1. Moderate emphysema with patchy diffuse bilateral lung disease most likely multifocal pneumonia with differential including pulmonary edema or chronic interstitial lung disease. 2. Mild wall thickening along the anteromedial margin of a large cavitary lesion in the lingula most likely related to either emphysema or chronic infection with some peripheral atelectasis/scarring. 3. Small bilateral pleural effusions. 4. Cardiomegaly. Labs Labs: Laboratory Results - last 24 hr 07/27/24 07/27/24 04:13 08:25 WBC 7.8 RBC 5.17 Hgb 15.3 Hct 45.7 MCV 88.4 MCH 29.6 MCHC 33.5 RDW 12.6 Plt Count 172 MPV 11.4 H Immature Gran % (Auto) 0.4 Neut % (Auto) 74.1 H Lymph % (Auto) 14.6 L [place] % (Auto) 9.2 H Eos % (Auto) 1.4 Baso % (Auto) 0.3 Lymph # (Auto) 1.14 [place] # (Auto) 0.7 H Eos # (Auto) 0.1 Baso # (Auto) 0.0 Abs Immat Gran (auto) 0.03 Absolute Neuts (auto) 5.8 Absolute Nucleated RBC 0.000 Nucleated RBC % 0.0 Sodium 136 L Potassium 3.9 Chloride 103 Carbon Dioxide 27 Anion Gap 6 BUN 40 H Creatinine 1.60 H Estim Creat Clear Calc 39 Estimated GFR 42 L Glucose 147 H Lactic Acid 1.3 Calcium 9.0 Magnesium 2.2 Total Bilirubin 1.2 AST 28 ALT 30 Alkaline Phosphatase 97 Total Protein 7.0 Albumin 3.6
[2024-07-27] MEDS: MELATONIN 5 MG TABLET PO (20:18)
[2024-07-27] MEDS: traZODone HCL 50 MG TABLET PO (20:19)
[2024-07-27] MEDS: QUEtiapine FUMARATE XR 50 MG TAB.ER.24H PO (20:19)
[2024-07-28] VITALS (19 sets, daily range): BP systolic 97–120; BP diastolic 48–83; PULSE 80–120; RESP 14–20; TEMP 36.7–37.2; O2SAT 90–98
[2024-07-28 04:58] LABS: Basophils Percent Auto 0.4 % (0.2-1.2); Eosinophils Absolute Auto 0.2 K/mm3 (0-0.3); Eosinophils Percent Auto 2.4 % (0-4.4); Hematocrit 41.4 % (42.0-52.0); Hemoglobin 14.1 g/dL (14.0-18.0); Immature Granulocyte Absolute 0.03 K/mm3 (0.00-0.031); Immature Granulocyte Percent A 0.4 % (0-0.5); Lymphocytes Absolute Auto 1.21 K/mm3 (0.9-3.2); Mean Corpuscular HGB Conc 34.1 g/dl (32-36); Mean Corpuscular Hemoglobin 30.3 pg (26-34); Mean Corpuscular Volume 88.8 fl (80-100); Mean Platelet Volume 11.1 fl (7.4-10.4); Monocytes Absolute Auto 0.7 K/mm3 (0.1-0.6); Monocytes Percent Auto 9.8 % (2.6-8.5); Platelet Count Result 149 k/mm3 (150-375); Red Blood Count 4.66 M/mm3 (4.6-6.20); Red Cell Distribution Width 12.7 % (11.5-14.5); White Blood Count 7.1 K/mm3 (4.5-10.0)
[2024-07-28 05:08] LABS: Alanine Aminotransferase 22 U/L (6-50); Albumin Level 3.2 g/dL (3.5-5.1); Alkaline Phosphatase 81 U/L (38-126); Anion Gap 5 mmol/L (4-12); Aspartate Amino Transferase 20 U/L (17-59); Bilirubin,Total 0.8 mg/dL (0.2-1.3); Blood Urea Nitrogen 44 mg/dL (9-20); Calcium 8.4 mg/dL (8.4-10.2); Carbon Dioxide 26 mmol/L (22-30); Chloride 106 mmol/L (98-107); Estimated CRCL calculation 33 ml/min; Estimated Glomerular Filt Rate 35; Glucose 144 mg/dL (65-110); Magnesium 2.1 mg/dL (1.6-2.3); Potassium 3.9 mmol/L (3.4-5.0); Sodium 137 mmol/L (137-145)
[2024-07-28 05:10] LABS: Lactic Acid Reflex 1.4 mmol/L (0.7-2.0)
[2024-07-28] MEDS: EMPAGLIFLOZIN 10 MG TABLET PO (09:13)
[2024-07-28] MEDS: METOPROLOL SUCCINATE EXT REL 50 MG TABCR 100 MG PO ×2 (09:13→18:27)
[2024-07-28] MEDS: SACUBITRIL/VALSARTAN 24-26 MG TABLET 1 TAB PO ×2 (09:13→20:21)
[2024-07-28] MEDS: busPIRone HCL 5 MG TABLET PO ×2 (09:13→20:22)
[2024-07-28] MEDS: APIXABAN 5 MG TABLET PO ×2 (09:13→20:21)
[2024-07-28] MEDS: SPIRONOLACTONE 25 MG TABLET PO (09:14)
[2024-07-28] MEDS: cefTRIAXone 2 GM/NS 100 ML 2 GM/100 ML BAG IVPB (09:14)
[2024-07-28] MEDS: FUROSEMIDE INJ 40 MG/4 ML VIAL IV PUSH (09:14)
[2024-07-28] MEDS: DIGOXIN 250 MCG TABLET PO (09:16)
--- NOTE | 2024-07-28 11:11 | P.PNCA_ITS ---
Progress Note: A&P Assessment and Plan (1) Atrial fibrillation with RVR: Code(s): I48.91 - Unspecified atrial fibrillation Status: Acute Plan Persistent atrial fibrillation with RVR Cardiomyopathy ejection fraction 20-25% Hypertension GLADYS Plan Continue metoprolol 100 mg b.i.d. Hold diuretics today Digoxin 0.25 mg daily Continue Entresto Continue spironolactone Continue Eliquis NPO after midnight for possible PEDRO and cardioversion tomorrow Subjective Date/time seen: 07/28/24 11:11 Interval history: No acute events Telemetry: AFib heart rate 100-150 Review of Systems Review of Systems: All systems reviewed & are unremarkable except as noted in HPI and below Exam Const: General: comfortable and no acute distress Other: Tall elderly man wearing nasal cannula oxygen HENMT: Mouth: Yes moist mucous membranes Eyes: General: appearance normal, both eyes and all related structures Sclera: sclerae normal Neck: Neck: supple and no JVD Resp: Effort & Inspection: normal respiratory effort Auscultation: clear to auscultation bilaterally and diminished lung sounds Cardio: Rate: tachycardic Rhythm: abnormal rhythm irregularly irregular Heart sounds: no murmurs Other: no obvious murmur or gallop GI: Auscultation: normal bowel sounds Skin: General skin exam: normal color Neuro: Speech: normal speech Other: alert and oriented x3 Psych: Mental Status: mental status grossly normal Affect: normal affect Objective Data Vital Signs Vital Signs: Vital Signs - 24 hr 07/27/24 11:34 07/27/24 12:13 07/27/24 12:00 Temperature 36.9 C Pulse Rate 123 H 115 H 115 H Respiratory Rate 20 20 Blood Pressure 110/73 Pulse Oximetry 96 96 Oxygen Delivery Room Air Fraction of Inspired Oxygen 36 07/27/24 12:00 07/27/24 13:48 07/27/24 16:44 Temperature 36.9 C Pulse Rate 115 H 115 H 101 H Respiratory Rate 18 Blood Pressure 129/85 Pulse Oximetry 96 Oxygen Delivery Fraction of Inspired Oxygen 07/27/24 16:57 07/27/24 16:00 07/27/24 16:00 Temperature Pulse Rate 101 H Respiratory Rate Blood Pressure Pulse Oximetry 97 Oxygen Delivery Room Air Room Air Fraction of Inspired Oxygen 36 07/27/24 17:33 07/27/24 17:00 07/27/24 17:55 Temperature Pulse Rate 101 H 150 H 154 H Respiratory Rate Blood Pressure Pulse Oximetry Oxygen Delivery Fraction of Inspired Oxygen 07/27/24 12:00 07/27/24 20:04 07/27/24 20:00 Temperature 37.6 C H Pulse Rate 151 H 90 87 Respiratory Rate 18 Blood Pressure 127/72 Pulse Oximetry 95 Oxygen Delivery Fraction of Inspired Oxygen 07/27/24 20:00 07/28/24 00:04 07/27/24 22:00 Temperature 36.7 C Pulse Rate 97 102 H Respiratory Rate 20 Blood Pressure 109/66 Pulse Oximetry 90 Oxygen Delivery Room Air Fraction of Inspired Oxygen 07/28/24 00:00 07/28/24 00:00 07/28/24 02:00 Temperature Pulse Rate 107 H 104 H Respiratory Rate Blood Pressure Pulse Oximetry Oxygen Delivery Room Air Fraction of Inspired Oxygen 07/28/24 03:52 07/28/24 03:53 07/28/24 04:00 Temperature 36.8 C Pulse Rate 90 101 H Respiratory Rate 20 Blood Pressure 120/60 Pulse Oximetry 95 Oxygen Delivery Room Air Fraction of Inspired Oxygen 07/28/24 06:00 07/28/24 08:00 07/28/24 09:13 Temperature 36.7 C Pulse Rate 101 H 105 H 109 H Respiratory Rate 20 Blood Pressure 104/61 Pulse Oximetry 98 Oxygen Delivery Fraction of Inspired Oxygen 07/28/24 09:16 Temperature Pulse Rate 119 H Respiratory Rate Blood Pressure Pulse Oximetry Oxygen Delivery Fraction of Inspired Oxygen Intake/Output Intake/Output: Intake & Output 07/25/24 07/26/24 07/27/24 07/28/24 23:59 23:59 23:59 23:59 Intake Total 8404 921 9481 1240 Output Total 1000 2150 900 900 Balance 570 -1227 986 340 Meds/Results Medications: Active Medications Generic Name Dose Route Start Last Admin Trade Name Freq PRN Reason Stop Dose Admin Acetaminophen 650 mg 07/23/24 20:07 07/25/24 16:27 Acetaminophen 325 Mg Tablet PO 650 mg Q4H PRN Administration Mild Pain (1-3) or Fever Hydrocodone Bitart/Acetaminophen 1 tab 07/23/24 20:07 07/24/24 01:57 Hydrocodone/Acetaminophen (*Crx) 5-325 Mg Tablet PO 1 tab Q4H PRN Administration Pain Rated 4-6 Apixaban 5 mg 07/24/24 10:25 07/28/24 09:13 Apixaban 5 Mg Tablet PO 5 mg Q12HR LETICIA Administration Buspirone HCl 5 mg 07/25/24 14:40 07/28/24 09:13 Buspirone Hcl 5 Mg Tablet PO 5 mg Q12HR LETICIA Administration Digoxin 250 mcg 07/27/24 11:55 07/28/24 09:16 Digoxin 250 Mcg Tablet PO 250 mcg QAM LETICIA Administration Empagliflozin 10 mg 07/25/24 09:00 07/28/24 09:13 Empagliflozin 10 Mg Tablet PO 10 mg DAILY LETICIA Administration Furosemide 40 mg 07/24/24 10:20 07/28/24 09:14 Furosemide Inj 40 Mg/4 Ml Vial IV PUSH 40 mg BID LETICIA Administration Guaifenesin/Dextromethorphan 10 ml 07/24/24 16:24 07/27/24 20:19 Guaifenesin/Dextromethorphan 10 Ml Udc PO 10 ml TID PRN Administration Cough Ceftriaxone Sodium 2 gm in 100 mls @ 200 mls/hr 07/27/24 09:00 07/28/24 09:14 Rocephin 2 Gm/Ns 100 Ml IVPB 200 mls/hr Q24H LETICIA Administration Doxycycline Hyclate 100 mg in 100 mls @ 100 mls/hr 07/27/24 09:00 07/27/24 21:14 Vibramycin 100 Mg/Ns 100 Ml IVPB Infused Q12HR LETICIA Infusion Melatonin 5 mg 07/24/24 21:00 07/27/24 20:18 Melatonin 5 Mg Tablet PO 5 mg HS LETICIA Administration Metoprolol Succinate 100 mg 07/27/24 17:00 07/28/24 09:13 Metoprolol Succinate Ext Rel 50 Mg Tabcr PO 100 mg BID LETICIA Administration Metoprolol Tartrate 5 mg 07/24/24 10:19 07/27/24 17:55 Metoprolol Tartrate Inj 5 Mg/5 Ml Vial IV PUSH 5 mg Q4H PRN Administration Tachycardia Ondansetron HCl 4 mg 07/23/24 20:07 Ondansetron Inj 4 Mg/2 Ml Vial IV PUSH Q4H PRN Nausea Quetiapine Fumarate 50 mg 07/27/24 21:00 07/27/24 20:19 Quetiapine Fumarate Xr 50 Mg Tab.Er.24h PO 50 mg HS LETICIA Administration Sacubitril/Valsartan 1 tab 07/24/24 21:00 07/28/24 09:13 Sacubitril/Valsartan 24-26 Mg Tablet PO 1 tab Q12HR LETICIA Administration Spironolactone 25 mg 07/24/24 14:55 07/28/24 09:14 Spironolactone 25 Mg Tablet PO 25 mg QAM LETICIA Administration Trazodone HCl 50 mg 07/26/24 21:00 07/27/24 20:19 Trazodone Hcl 50 Mg Tablet PO 50 mg HS LETICIA Administration Radiology Results: ITS Impressions Chest X-Ray 07/23/24 18:15 IMPRESSION: Pulmonary opacities may represent moderate edema with a moderate left pleural effusion. Infection not excluded. Chest CT 07/25/24 11:45 IMPRESSION: 1. Moderate emphysema with patchy diffuse bilateral lung disease most likely multifocal pneumonia with differential including pulmonary edema or chronic interstitial lung disease. 2. Mild wall thickening along the anteromedial margin of a large cavitary lesion in the lingula most likely related to either emphysema or chronic infection with some peripheral atelectasis/scarring. 3. Small bilateral pleural effusions. 4. Cardiomegaly. Labs Labs: Laboratory Results - last 24 hr 07/28/24 04:27 WBC 7.1 RBC 4.66 Hgb 14.1 Hct 41.4 L MCV 88.8 MCH 30.3 MCHC 34.1 RDW 12.7 Plt Count 149 L MPV 11.1 H Immature Gran % (Auto) 0.4 Neut % (Auto) 70.0 Lymph % (Auto) 17.0 L [place] % (Auto) 9.8 H Eos % (Auto) 2.4 Baso % (Auto) 0.4 Lymph # (Auto) 1.21 [place] # (Auto) 0.7 H Eos # (Auto) 0.2 Baso # (Auto) 0.0 Abs Immat Gran (auto) 0.03 Absolute Neuts (auto) 5.0 Absolute Nucleated RBC 0.000 Nucleated RBC % 0.0 Sodium 137 Potassium 3.9 Chloride 106 Carbon Dioxide 26 Anion Gap 5 BUN 44 H Creatinine 1.90 H Estim Creat Clear Calc 33 Estimated GFR 35 L Glucose 144 H Lactic Acid 1.4 Calcium 8.4 Magnesium 2.1 Total Bilirubin 0.8 AST 20 ALT 22 Alkaline Phosphatase 81 Total Protein 6.0 L Albumin 3.2 L
[2024-07-28] MEDS: DOXYCYCLINE 100 MG/NS 100 ML 100 MG/100 ML BAG IVPB ×2 (12:21→20:18)
--- NOTE | 2024-07-28 17:21 | P.PNIM_ITS ---
Progress Note: A&P Assessment and Plan (1) Acute heart failure: Code(s): I50.9 - Heart failure, unspecified Status: Acute (2) Atrial fibrillation with RVR: Code(s): I48.91 - Unspecified atrial fibrillation Status: Acute Plan Atrial fibrillation with rapid ventricular response Status post Cardizem infusion [id number] of 4, continue Eliquis 5mg bid adjusted Metoprolol to 100mg by cards and monitor overnight Cardiology following Monitor electrolytes. 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 Chest x-ray showed pulmonary edema rule out infection Contineu Spironolactone, Entresto, Digoxin 0.25mg and Metoptolol 100mg bid Possible PEDRO with cardioversion tomorrow Cardiology following Pneumonia CT chest showed multifocal pneumonia Blood culture, MRSA on Rocephin and Doxycycline monitor Hypertension Titrate her medications with clinical course. Insomnia Seroquel 25mg nighttime monitor DVT prophylaxis on Eliquis. Surrogate decision maker Catina James Subjective Date/time seen: 07/28/24 17:21 Interval history: patient still tachycardic and cardiology planning PEDRO cardioversion Review of Systems Review of Systems: Other systems reviewed and negative except as noted in the HPI above. Exam Narrative: General: alert and comfortable Eyes: EOMI, PERRLA ENNT External ears normal, Neck is supple, no masses, Respiratory systems: Clear to auscultation Cardiovascular S1, S2, normal rhythm, no murmur, rub, or gallop; no thrill or palpable murmurs on palpation. Gastrointestinal: soft, non-tender, and non-distended abdomen with no masses; BS present Skin: no rash, lesions, ulcerations, subcutaneous nodules or induration Musculoskeletal: no abnormality and no tenderness, normal ROM Neurologic: Alert and oriented x3, non focal Mental Status Exam: normal affect Objective Data Vital Signs Vital Signs: Vital Signs - 24 hr 07/27/24 17:33 07/27/24 17:55 07/27/24 20:04 Temperature 99.7 F H Pulse Rate 101 H 154 H 90 Respiratory Rate 18 Blood Pressure 127/72 Pulse Oximetry 95 Oxygen Delivery Fraction of Inspired Oxygen 07/27/24 20:00 07/27/24 20:00 07/28/24 00:04 Temperature 98.1 F Pulse Rate 87 97 Respiratory Rate 20 Blood Pressure 109/66 Pulse Oximetry 90 Oxygen Delivery Room Air Fraction of Inspired Oxygen 07/27/24 22:00 07/28/24 00:00 07/28/24 00:00 Temperature Pulse Rate 102 H 107 H Respiratory Rate Blood Pressure Pulse Oximetry Oxygen Delivery Room Air Fraction of Inspired Oxygen 07/28/24 02:00 07/28/24 03:52 07/28/24 03:53 Temperature 98.3 F Pulse Rate 104 H 90 Respiratory Rate 20 Blood Pressure 120/60 Pulse Oximetry 95 Oxygen Delivery Room Air Fraction of Inspired Oxygen 07/28/24 04:00 07/28/24 06:00 07/28/24 08:00 Temperature 98.1 F Pulse Rate 101 H 101 H 105 H Respiratory Rate 20 Blood Pressure 104/61 Pulse Oximetry 98 Oxygen Delivery Fraction of Inspired Oxygen 07/28/24 09:13 07/28/24 09:16 07/28/24 11:59 Temperature 98.9 F Pulse Rate 109 H 119 H 120 H Respiratory Rate 18 Blood Pressure 97/48 L Pulse Oximetry 95 Oxygen Delivery Fraction of Inspired Oxygen 07/28/24 12:09 07/28/24 08:00 07/28/24 08:00 Temperature Pulse Rate 115 H 115 H 115 H Respiratory Rate 18 Blood Pressure 103/57 L Pulse Oximetry 95 Oxygen Delivery Room Air Fraction of Inspired Oxygen 36 07/28/24 12:00 07/28/24 12:00 07/28/24 13:08 Temperature Pulse Rate 115 H 115 H 115 H Respiratory Rate 18 Blood Pressure Pulse Oximetry 95 Oxygen Delivery Room Air Fraction of Inspired Oxygen 36 07/28/24 16:00 07/28/24 16:00 07/28/24 16:00 Temperature 98.2 F Pulse Rate 106 H 106 H 106 H Respiratory Rate 14 14 Blood Pressure 106/75 Pulse Oximetry 96 96 Oxygen Delivery Room Air Fraction of Inspired Oxygen 36 07/28/24 17:01 Temperature Pulse Rate 109 H Respiratory Rate Blood Pressure Pulse Oximetry Oxygen Delivery Fraction of Inspired Oxygen Intake/Output Intake/Output: Intake & Output 07/25/24 07/26/24 07/27/24 07/28/24 23:59 23:59 23:59 23:59 Intake Total 6692 156 0055 1990 Output Total 1000 2150 900 1800 Balance 570 1227 986 190 Meds/Results Medications: Active Medications Generic Name Dose Route Start Last Admin Trade Name Freq PRN Reason Stop Dose Admin Acetaminophen 650 mg 07/23/24 20:07 07/25/24 16:27 Acetaminophen 325 Mg Tablet PO 650 mg Q4H PRN Administration Mild Pain (1-3) or Fever Hydrocodone Bitart/Acetaminophen 1 tab 07/23/24 20:07 07/24/24 01:57 Hydrocodone/Acetaminophen (*Crx) 5-325 Mg Tablet PO 1 tab Q4H PRN Administration Pain Rated 4-6 Apixaban 5 mg 07/24/24 10:25 07/28/24 09:13 Apixaban 5 Mg Tablet PO 5 mg Q12HR LETICIA Administration Buspirone HCl 5 mg 07/25/24 14:40 07/28/24 09:13 Buspirone Hcl 5 Mg Tablet PO 5 mg Q12HR LETICIA Administration Digoxin 250 mcg 07/27/24 11:55 07/28/24 09:16 Digoxin 250 Mcg Tablet PO 250 mcg QAM LETICIA Administration Empagliflozin 10 mg 07/25/24 09:00 07/28/24 09:13 Empagliflozin 10 Mg Tablet PO 10 mg DAILY LETICIA Administration Furosemide 40 mg 07/24/24 10:20 07/28/24 09:14 Furosemide Inj 40 Mg/4 Ml Vial IV PUSH 40 mg BID LETICIA Administration Guaifenesin/Dextromethorphan 10 ml 07/24/24 16:24 07/27/24 20:19 Guaifenesin/Dextromethorphan 10 Ml Udc PO 10 ml TID PRN Administration Cough Ceftriaxone Sodium 2 gm in 100 mls @ 200 mls/hr 07/27/24 09:00 07/28/24 09:14 Rocephin 2 Gm/Ns 100 Ml IVPB 200 mls/hr Q24H LETICIA Administration Doxycycline Hyclate 100 mg in 100 mls @ 100 mls/hr 07/27/24 09:00 07/28/24 12:21 Vibramycin 100 Mg/Ns 100 Ml IVPB 100 mls/hr Q12HR LETICIA Administration Melatonin 5 mg 07/24/24 21:00 07/27/24 20:18 Melatonin 5 Mg Tablet PO 5 mg HS LETICIA Administration Metoprolol Succinate 100 mg 07/27/24 17:00 07/28/24 09:13 Metoprolol Succinate Ext Rel 50 Mg Tabcr PO 100 mg BID LETICIA Administration Metoprolol Tartrate 5 mg 07/24/24 10:19 07/27/24 17:55 Metoprolol Tartrate Inj 5 Mg/5 Ml Vial IV PUSH 5 mg Q4H PRN Administration Tachycardia Ondansetron HCl 4 mg 07/23/24 20:07 Ondansetron Inj 4 Mg/2 Ml Vial IV PUSH Q4H PRN Nausea Quetiapine Fumarate 50 mg 07/27/24 21:00 07/27/24 20:19 Quetiapine Fumarate Xr 50 Mg Tab.Er.24h PO 50 mg HS LETICIA Administration Sacubitril/Valsartan 1 tab 07/24/24 21:00 07/28/24 09:13 Sacubitril/Valsartan 24-26 Mg Tablet PO 1 tab Q12HR LETICIA Administration Spironolactone 25 mg 07/24/24 14:55 07/28/24 09:14 Spironolactone 25 Mg Tablet PO 25 mg QAM LETICIA Administration Trazodone HCl 50 mg 07/26/24 21:00 07/27/24 20:19 Trazodone Hcl 50 Mg Tablet PO 50 mg HS LETICIA Administration Radiology Results: ITS Impressions Chest X-Ray 07/23/24 18:15 IMPRESSION: Pulmonary opacities may represent moderate edema with a moderate left pleural effusion. Infection not excluded. Chest CT 07/25/24 11:45 IMPRESSION: 1. Moderate emphysema with patchy diffuse bilateral lung disease most likely multifocal pneumonia with differential including pulmonary edema or chronic interstitial lung disease. 2. Mild wall thickening along the anteromedial margin of a large cavitary lesion in the lingula most likely related to either emphysema or chronic infection with some peripheral atelectasis/scarring. 3. Small bilateral pleural effusions. 4. Cardiomegaly. Labs Labs: Laboratory Results - last 24 hr 07/28/24 04:27 WBC 7.1 RBC 4.66 Hgb 14.1 Hct 41.4 L MCV 88.8 MCH 30.3 MCHC 34.1 RDW 12.7 Plt Count 149 L MPV 11.1 H Immature Gran % (Auto) 0.4 Neut % (Auto) 70.0 Lymph % (Auto) 17.0 L [place] % (Auto) 9.8 H Eos % (Auto) 2.4 Baso % (Auto) 0.4 Lymph # (Auto) 1.21 [place] # (Auto) 0.7 H Eos # (Auto) 0.2 Baso # (Auto) 0.0 Abs Immat Gran (auto) 0.03 Absolute Neuts (auto) 5.0 Absolute Nucleated RBC 0.000 Nucleated RBC % 0.0 Sodium 137 Potassium 3.9 Chloride 106 Carbon Dioxide 26 Anion Gap 5 BUN 44 H Creatinine 1.90 H Estim Creat Clear Calc 33 Estimated GFR 35 L Glucose 144 H Lactic Acid 1.4 Calcium 8.4 Magnesium 2.1 Total Bilirubin 0.8 AST 20 ALT 22 Alkaline Phosphatase 81 Total Protein 6.0 L Albumin 3.2 L
[2024-07-28] MEDS: MELATONIN 5 MG TABLET PO (20:20)
[2024-07-28] MEDS: QUEtiapine FUMARATE 25 MG TABLET PO (20:22)
[2024-07-28] MEDS: guaiFENesin/DEXTROMETHORPHAN 10 ML UDC PO (20:23)
[2024-07-29] VITALS (15 sets, daily range): BP systolic 92–128; BP diastolic 42–86; PULSE 68–101; RESP 16–22; TEMP 36.4–37.1; O2SAT 92–96
[2024-07-29 05:19] LABS: Basophils Percent Auto 0.6 % (0.2-1.2); Eosinophils Absolute Auto 0.2 K/mm3 (0-0.3); Eosinophils Percent Auto 3.4 % (0-4.4); Hematocrit 43.7 % (42.0-52.0); Hemoglobin 14.7 g/dL (14.0-18.0); Immature Granulocyte Absolute 0.03 K/mm3 (0.00-0.031); Immature Granulocyte Percent A 0.4 % (0-0.5); Lymphocytes Absolute Auto 1.19 K/mm3 (0.9-3.2); Lymphocytes Percent Auto 16.8 % (18.3-44.2); Mean Corpuscular HGB Conc 33.6 g/dl (32-36); Mean Corpuscular Hemoglobin 29.6 pg (26-34); Mean Corpuscular Volume 87.9 fl (80-100); Mean Platelet Volume 10.9 fl (7.4-10.4); Monocytes Absolute Auto 0.6 K/mm3 (0.1-0.6); Monocytes Percent Auto 8.7 % (2.6-8.5); Neutrophils Percent Auto 70.1 % (45.5-73.1); Platelet Count Result 152 k/mm3 (150-375); Red Blood Count 4.97 M/mm3 (4.6-6.20); Red Cell Distribution Width 12.7 % (11.5-14.5); White Blood Count 7.1 K/mm3 (4.5-10.0)
[2024-07-29 05:30] LABS: Alanine Aminotransferase 20 U/L (6-50); Albumin Level 3.3 g/dL (3.5-5.1); Alkaline Phosphatase 84 U/L (38-126); Anion Gap 5 mmol/L (4-12); Aspartate Amino Transferase 20 U/L (17-59); Bilirubin,Total 0.8 mg/dL (0.2-1.3); Blood Urea Nitrogen 45 mg/dL (9-20); Calcium 8.5 mg/dL (8.4-10.2); Carbon Dioxide 25 mmol/L (22-30); Chloride 107 mmol/L (98-107); Estimated CRCL calculation 35 ml/min; Estimated Glomerular Filt Rate 37; Glucose 138 mg/dL (65-110); Magnesium 2.2 mg/dL (1.6-2.3); Potassium 4.2 mmol/L (3.4-5.0); Sodium 137 mmol/L (137-145)
[2024-07-29] MEDS: METOPROLOL SUCCINATE EXT REL 50 MG TABCR 100 MG PO ×2 (09:39→17:24)
[2024-07-29] MEDS: busPIRone HCL 5 MG TABLET PO ×2 (09:39→20:43)
[2024-07-29] MEDS: SPIRONOLACTONE 25 MG TABLET PO (09:39)
[2024-07-29] MEDS: EMPAGLIFLOZIN 10 MG TABLET PO (09:39)
[2024-07-29] MEDS: SACUBITRIL/VALSARTAN 24-26 MG TABLET 1 TAB PO ×2 (09:39→20:42)
[2024-07-29] MEDS: DIGOXIN 250 MCG TABLET PO (09:39)
[2024-07-29] MEDS: APIXABAN 5 MG TABLET PO ×2 (09:39→20:44)
[2024-07-29] MEDS: DOXYCYCLINE 100 MG/NS 100 ML 100 MG/100 ML BAG IVPB (09:40)
[2024-07-29] MEDS: cefTRIAXone 2 GM/NS 100 ML 2 GM/100 ML BAG IVPB (09:40)
--- NOTE | 2024-07-29 10:05 | PM.PNCARD ---
Progress Note: A&P Assessment and Plan (1) Atrial fibrillation with RVR: Code(s): I48.91 - Unspecified atrial fibrillation Status: Acute (2) Acute heart failure: Code(s): I50.9 - Heart failure, unspecified Status: Acute (3) Hypertension: Code(s): I10 - Essential (primary) hypertension Status: Acute Plan 78-year-old man with hypertension who initially presented with shortness of breath admitted for acute systolic heart failure in setting of atrial fibrillation with rapid ventricular rate Atrial fibrillation with rapid ventricular rate -would benefit from MADISYN/cardioversion given severely depressed left ventricular ejection fraction -awaiting anesthesiology for MADISYN/cardioversion -continue Eliquis 5 mg p.o. b.i.d. and Toprol 100 mg p.o. b.i.d. -he is also on digoxin 250 mcg every morning Acute systolic heart failure -no chest discomfort than likely secondary to underlying atrial arrhythmia -madisyn/cardioversion awaiting anesthesiology availability -continue Entresto 24-26 mg p.o. b.i.d., spironolactone 25 mg p.o. daily, Jardiance 10 mg p.o. daily, Toprol 100 mg p.o. b.i.d. Hypertension -continue spironolactone 25 mg p.o. daily with goal systolic blood pressure less than 130 mm Hg Subjective Date/time seen: 07/29/24 10:05 Interval history: Denies chest pain or shortness of breath. Review of Systems Cardiovascular: Cardiovascular: Reports as per HPI Respiratory: Respiratory: Reports as per HPI Exam Const: General: comfortable HENMT: Mouth: Yes moist mucous membranes Eyes: EOM: EOMs intact bilaterally Neck: Neck: no JVD Resp: Effort & Inspection: normal respiratory effort Auscultation: clear to auscultation bilaterally Cardio: Rate: tachycardic Rhythm: abnormal rhythm GI: GI Palp: Yes Soft to palpation Objective Data Vital Signs Vital Signs: Vital Signs - 24 hr 07/28/24 11:59 07/28/24 12:09 07/28/24 12:00 Temperature 37.2 C Pulse Rate 120 H 115 H 115 H Respiratory Rate 18 18 Blood Pressure 97/48 L 103/57 L Pulse Oximetry 95 95 Oxygen Delivery Room Air Fraction of Inspired Oxygen 36 07/28/24 12:00 07/28/24 13:08 07/28/24 16:00 Temperature 36.8 C Pulse Rate 115 H 115 H 106 H Respiratory Rate 14 Blood Pressure 106/75 Pulse Oximetry 96 Oxygen Delivery Fraction of Inspired Oxygen 07/28/24 16:00 07/28/24 16:00 07/28/24 17:01 Temperature Pulse Rate 106 H 106 H 109 H Respiratory Rate 14 Blood Pressure Pulse Oximetry 96 Oxygen Delivery Room Air Fraction of Inspired Oxygen 36 07/28/24 18:27 07/28/24 19:21 07/28/24 20:00 Temperature 37.2 C Pulse Rate 101 H 80 Respiratory Rate 18 Blood Pressure 102/83 Pulse Oximetry 96 Oxygen Delivery Room Air Fraction of Inspired Oxygen 07/28/24 20:00 07/28/24 22:00 07/28/24 23:50 Temperature Pulse Rate 88 102 H Respiratory Rate Blood Pressure Pulse Oximetry Oxygen Delivery Room Air Fraction of Inspired Oxygen 07/29/24 00:00 07/29/24 00:00 07/29/24 02:00 Temperature 36.9 C Pulse Rate 93 87 90 Respiratory Rate 16 Blood Pressure 96/71 L Pulse Oximetry 95 Oxygen Delivery Fraction of Inspired Oxygen 07/29/24 04:00 07/29/24 04:00 07/29/24 04:00 Temperature 36.7 C Pulse Rate 89 94 Respiratory Rate 18 Blood Pressure 106/60 Pulse Oximetry 95 Oxygen Delivery Room Air Fraction of Inspired Oxygen 07/29/24 06:00 07/29/24 07:17 Temperature 36.4 C Pulse Rate 100 93 Respiratory Rate 18 Blood Pressure 128/79 Pulse Oximetry 96 Oxygen Delivery Fraction of Inspired Oxygen Intake/Output Intake/Output: Intake & Output 07/26/24 07/27/24 07/28/24 07/29/24 23:59 23:59 23:59 23:59 Intake Total 923 1886 2650 250 Output Total 2150 900 1800 Balance -1227 986 850 250 Meds/Results Medications: Active Medications Generic Name Dose Route Start Last Admin Trade Name Freq PRN Reason Stop Dose Admin Acetaminophen 650 mg 07/23/24 20:07 07/25/24 16:27 Acetaminophen 325 Mg Tablet PO 650 mg Q4H PRN Administration Mild Pain (1-3) or Fever Hydrocodone Bitart/Acetaminophen 1 tab 07/23/24 20:07 07/24/24 01:57 Hydrocodone/Acetaminophen (*Crx) 5-325 Mg Tablet PO 1 tab Q4H PRN Administration Pain Rated 4-6 Amoxicillin/Clavulanate Potassium 1 tablet 07/30/24 09:00 Amoxicillin/Clavulanate K 875-125 Mg Tab PO 07/31/24 21:01 Q12HR LETICIA Apixaban 5 mg 07/24/24 10:25 07/29/24 09:39 Apixaban 5 Mg Tablet PO 5 mg Q12HR LETICIA Administration Buspirone HCl 5 mg 07/25/24 14:40 07/29/24 09:39 Buspirone Hcl 5 Mg Tablet PO 5 mg Q12HR LETICIA Administration Digoxin 250 mcg 07/27/24 11:55 07/29/24 09:39 Digoxin 250 Mcg Tablet PO 250 mcg QAM LETICIA Administration Doxycycline Hyclate 100 mg 07/29/24 21:00 Doxycycline Hyclate 100 Mg Tablet PO 07/31/24 21:01 Q12HR LETICIA Empagliflozin 10 mg 07/25/24 09:00 07/29/24 09:39 Empagliflozin 10 Mg Tablet PO 10 mg DAILY LETICIA Administration Furosemide 40 mg 07/24/24 10:20 07/28/24 09:14 Furosemide Inj 40 Mg/4 Ml Vial IV PUSH 40 mg BID LETICIA Administration Guaifenesin/Dextromethorphan 10 ml 07/24/24 16:24 07/28/24 20:23 Guaifenesin/Dextromethorphan 10 Ml Udc PO 10 ml TID PRN Administration Cough Melatonin 5 mg 07/24/24 21:00 07/28/24 20:20 Melatonin 5 Mg Tablet PO 5 mg HS LETICIA Administration Metoprolol Succinate 100 mg 07/27/24 17:00 07/29/24 09:39 Metoprolol Succinate Ext Rel 50 Mg Tabcr PO 100 mg BID LETICIA Administration Metoprolol Tartrate 5 mg 07/24/24 10:19 07/27/24 17:55 Metoprolol Tartrate Inj 5 Mg/5 Ml Vial IV PUSH 5 mg Q4H PRN Administration Tachycardia Ondansetron HCl 4 mg 07/23/24 20:07 Ondansetron Inj 4 Mg/2 Ml Vial IV PUSH Q4H PRN Nausea Quetiapine Fumarate 25 mg 07/28/24 21:00 07/28/24 20:22 Quetiapine Fumarate 25 Mg Tablet PO 25 mg HS LETICIA Administration Sacubitril/Valsartan 1 tab 07/24/24 21:00 07/29/24 09:39 Sacubitril/Valsartan 24-26 Mg Tablet PO 1 tab Q12HR LETICIA Administration Spironolactone 25 mg 07/24/24 14:55 07/29/24 09:39 Spironolactone 25 Mg Tablet PO 25 mg QAM LETICIA Administration Trazodone HCl 50 mg 07/26/24 21:00 07/28/24 20:23 Trazodone Hcl 50 Mg Tablet PO Not Given HS LETICIA Radiology Results: ITS Impressions Chest X-Ray 07/23/24 18:15 IMPRESSION: Pulmonary opacities may represent moderate edema with a moderate left pleural effusion. Infection not excluded. Chest CT 07/25/24 11:45 IMPRESSION: 1. Moderate emphysema with patchy diffuse bilateral lung disease most likely multifocal pneumonia with differential including pulmonary edema or chronic interstitial lung disease. 2. Mild wall thickening along the anteromedial margin of a large cavitary lesion in the lingula most likely related to either emphysema or chronic infection with some peripheral atelectasis/scarring. 3. Small bilateral pleural effusions. 4. Cardiomegaly. Labs Labs: Laboratory Results - last 24 hr 07/29/24 04:59 WBC 7.1 RBC 4.97 Hgb 14.7 Hct 43.7 MCV 87.9 MCH 29.6 MCHC 33.6 RDW 12.7 Plt Count 152 MPV 10.9 H Immature Gran % (Auto) 0.4 Neut % (Auto) 70.1 Lymph % (Auto) 16.8 L [place] % (Auto) 8.7 H Eos % (Auto) 3.4 Baso % (Auto) 0.6 Lymph # (Auto) 1.19 [place] # (Auto) 0.6 Eos # (Auto) 0.2 Baso # (Auto) 0.0 Abs Immat Gran (auto) 0.03 Absolute Neuts (auto) 5.0 Absolute Nucleated RBC 0.000 Nucleated RBC % 0.0 Sodium 137 Potassium 4.2 Chloride 107 Carbon Dioxide 25 Anion Gap 5 BUN 45 H Creatinine 1.80 H Estim Creat Clear Calc 35 Estimated GFR 37 L Glucose 138 H Calcium 8.5 Magnesium 2.2 Total Bilirubin 0.8 AST 20 ALT 20 Alkaline Phosphatase 84 Total Protein 6.0 L Albumin 3.3 L
--- NOTE | 2024-07-29 15:05 | PM.IMPN ---
Progress Note: A&P Assessment and Plan (1) Acute heart failure: Code(s): I50.9 - Heart failure, unspecified Status: Acute (2) Atrial fibrillation with RVR: Code(s): I48.91 - Unspecified atrial fibrillation Status: Acute Plan Atrial fibrillation with rapid ventricular response Status post Cardizem infusion [id number] of 4, continue Eliquis 5mg bid adjusted Metoprolol to 100mg by cards and monitor overnight Cardiology following Monitor electrolytes. 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 Chest x-ray showed pulmonary edema rule out infection Contineu Spironolactone, Entresto, Digoxin 0.25mg and Metoptolol 100mg bid Possible PEDRO with cardioversion tomorrow Cardiology following Pneumonia CT chest showed multifocal pneumonia Blood culture, MRSA on Rocephin and Doxycycline, changed to Augmentin and Doxycycline to complete 5 days monitor Hypertension Titrate her medications with clinical course. Insomnia Seroquel 50mg nighttime monitor DVT prophylaxis on Eliquis. Surrogate decision maker Catina James Subjective Date/time seen: 07/29/24 15:05 Interval history: Patient comfortable at bedside HR still elevated and cardiology planning for PEDRO with cardioversion Review of Systems Review of Systems: Other systems reviewed and negative except as noted in the HPI above. Exam Narrative: General: alert and comfortable Eyes: EOMI, PERRLA ENNT External ears normal, Neck is supple, no masses, Respiratory systems: Clear to auscultation Cardiovascular S1, S2, normal rhythm, no murmur, rub, or gallop; no thrill or palpable murmurs on palpation. Gastrointestinal: soft, non-tender, and non-distended abdomen with no masses; BS present Skin: no rash, lesions, ulcerations, subcutaneous nodules or induration Musculoskeletal: no abnormality and no tenderness, normal ROM Neurologic: Alert and oriented x3, non focal Mental Status Exam: normal affect Objective Data Vital Signs Vital Signs: Vital Signs - 24 hr 07/28/24 16:00 07/28/24 16:00 07/28/24 16:00 Temperature 98.2 F Pulse Rate 106 H 106 H 106 H Respiratory Rate 14 14 Blood Pressure 106/75 Pulse Oximetry 96 96 Oxygen Delivery Room Air Fraction of Inspired Oxygen 36 07/28/24 17:01 07/28/24 18:27 07/28/24 19:21 Temperature 99.0 F Pulse Rate 109 H 101 H 80 Respiratory Rate 18 Blood Pressure 102/83 Pulse Oximetry 96 Oxygen Delivery Fraction of Inspired Oxygen 07/28/24 20:00 07/28/24 20:00 07/28/24 22:00 Temperature Pulse Rate 88 102 H Respiratory Rate Blood Pressure Pulse Oximetry Oxygen Delivery Room Air Fraction of Inspired Oxygen 07/28/24 23:50 07/29/24 00:00 07/29/24 00:00 Temperature 98.5 F Pulse Rate 93 87 Respiratory Rate 16 Blood Pressure 96/71 L Pulse Oximetry 95 Oxygen Delivery Room Air Fraction of Inspired Oxygen 07/29/24 02:00 07/29/24 04:00 07/29/24 04:00 Temperature 98.0 F Pulse Rate 90 89 Respiratory Rate 18 Blood Pressure 106/60 Pulse Oximetry 95 Oxygen Delivery Room Air Fraction of Inspired Oxygen 07/29/24 04:00 07/29/24 06:00 07/29/24 07:17 Temperature 97.6 F Pulse Rate 94 100 93 Respiratory Rate 18 Blood Pressure 128/79 Pulse Oximetry 96 Oxygen Delivery Fraction of Inspired Oxygen 07/29/24 08:00 07/29/24 08:00 07/29/24 10:00 Temperature Pulse Rate 99 90 Respiratory Rate Blood Pressure Pulse Oximetry Oxygen Delivery Room Air Fraction of Inspired Oxygen 07/29/24 12:00 07/29/24 12:00 07/29/24 12:00 Temperature 98.8 F Pulse Rate 88 71 Respiratory Rate 18 Blood Pressure 92/59 L Pulse Oximetry 93 Oxygen Delivery Room Air Fraction of Inspired Oxygen Intake/Output Intake/Output: Intake & Output 07/26/24 07/27/24 07/28/24 07/29/24 23:59 23:59 23:59 23:59 Intake Total 923 1886 2650 490 Output Total 2150 900 1800 Balance -1227 986 850 490 Meds/Results Medications: Active Medications Generic Name Dose Route Start Last Admin Trade Name Freq PRN Reason Stop Dose Admin Acetaminophen 650 mg 07/23/24 20:07 07/25/24 16:27 Acetaminophen 325 Mg Tablet PO 650 mg Q4H PRN Administration Mild Pain (1-3) or Fever Hydrocodone Bitart/Acetaminophen 1 tab 07/23/24 20:07 07/24/24 01:57 Hydrocodone/Acetaminophen (*Crx) 5-325 Mg Tablet PO 1 tab Q4H PRN Administration Pain Rated 4-6 Amoxicillin/Clavulanate Potassium 1 tablet 07/30/24 09:00 Amoxicillin/Clavulanate K 875-125 Mg Tab PO 07/31/24 21:01 Q12HR LETICIA Apixaban 5 mg 07/24/24 10:25 07/29/24 09:39 Apixaban 5 Mg Tablet PO 5 mg Q12HR LETICIA Administration Buspirone HCl 5 mg 07/25/24 14:40 07/29/24 09:39 Buspirone Hcl 5 Mg Tablet PO 5 mg Q12HR LETICIA Administration Digoxin 250 mcg 07/27/24 11:55 07/29/24 09:39 Digoxin 250 Mcg Tablet PO 250 mcg QAM LETICIA Administration Doxycycline Hyclate 100 mg 07/29/24 21:00 Doxycycline Hyclate 100 Mg Tablet PO 07/31/24 21:01 Q12HR LETICIA Empagliflozin 10 mg 07/25/24 09:00 07/29/24 09:39 Empagliflozin 10 Mg Tablet PO 10 mg DAILY LETICIA Administration Furosemide 40 mg 07/24/24 10:20 07/28/24 09:14 Furosemide Inj 40 Mg/4 Ml Vial IV PUSH 40 mg BID LETICIA Administration Guaifenesin/Dextromethorphan 10 ml 07/24/24 16:24 07/28/24 20:23 Guaifenesin/Dextromethorphan 10 Ml Udc PO 10 ml TID PRN Administration Cough Melatonin 5 mg 07/24/24 21:00 07/28/24 20:20 Melatonin 5 Mg Tablet PO 5 mg HS LETICIA Administration Metoprolol Succinate 100 mg 07/27/24 17:00 07/29/24 09:39 Metoprolol Succinate Ext Rel 50 Mg Tabcr PO 100 mg BID LETICIA Administration Metoprolol Tartrate 5 mg 07/24/24 10:19 07/27/24 17:55 Metoprolol Tartrate Inj 5 Mg/5 Ml Vial IV PUSH 5 mg Q4H PRN Administration Tachycardia Ondansetron HCl 4 mg 07/23/24 20:07 Ondansetron Inj 4 Mg/2 Ml Vial IV PUSH Q4H PRN Nausea Quetiapine Fumarate 25 mg 07/28/24 21:00 07/28/24 20:22 Quetiapine Fumarate 25 Mg Tablet PO 25 mg HS LETICIA Administration Sacubitril/Valsartan 1 tab 07/24/24 21:00 07/29/24 09:39 Sacubitril/Valsartan 24-26 Mg Tablet PO 1 tab Q12HR LETICIA Administration Spironolactone 25 mg 07/24/24 14:55 07/29/24 09:39 Spironolactone 25 Mg Tablet PO 25 mg QAM LETICIA Administration Trazodone HCl 50 mg 07/26/24 21:00 07/28/24 20:23 Trazodone Hcl 50 Mg Tablet PO Not Given HS [facility] Radiology Results: ITS Impressions Chest X-Ray 07/23/24 18:15 IMPRESSION: Pulmonary opacities may represent moderate edema with a moderate left pleural effusion. Infection not excluded. Chest CT 07/25/24 11:45 IMPRESSION: 1. Moderate emphysema with patchy diffuse bilateral lung disease most likely multifocal pneumonia with differential including pulmonary edema or chronic interstitial lung disease. 2. Mild wall thickening along the anteromedial margin of a large cavitary lesion in the lingula most likely related to either emphysema or chronic infection with some peripheral atelectasis/scarring. 3. Small bilateral pleural effusions. 4. Cardiomegaly. Labs Labs: Laboratory Results - last 24 hr 07/29/24 04:59 WBC 7.1 RBC 4.97 Hgb 14.7 Hct 43.7 MCV 87.9 MCH 29.6 MCHC 33.6 RDW 12.7 Plt Count 152 MPV 10.9 H Immature Gran % (Auto) 0.4 Neut % (Auto) 70.1 Lymph % (Auto) 16.8 L [place] % (Auto) 8.7 H Eos % (Auto) 3.4 Baso % (Auto) 0.6 Lymph # (Auto) 1.19 [place] # (Auto) 0.6 Eos # (Auto) 0.2 Baso # (Auto) 0.0 Abs Immat Gran (auto) 0.03 Absolute Neuts (auto) 5.0 Absolute Nucleated RBC 0.000 Nucleated RBC % 0.0 Sodium 137 Potassium 4.2 Chloride 107 Carbon Dioxide 25 Anion Gap 5 BUN 45 H Creatinine 1.80 H Estim Creat Clear Calc 35 Estimated GFR 37 L Glucose 138 H Calcium 8.5 Magnesium 2.2 Total Bilirubin 0.8 AST 20 ALT 20 Alkaline Phosphatase 84 Total Protein 6.0 L Albumin 3.3 L
[2024-07-29] MEDS: guaiFENesin/DEXTROMETHORPHAN 10 ML UDC PO (20:41)
[2024-07-29] MEDS: MELATONIN 5 MG TABLET PO (20:42)
[2024-07-29] MEDS: traZODone HCL 50 MG TABLET PO (20:42)
[2024-07-29] MEDS: QUEtiapine FUMARATE 25 MG TABLET 50 MG PO (20:43)
[2024-07-29] MEDS: DOXYCYCLINE HYCLATE 100 MG TABLET PO (20:44)
[2024-07-30] VITALS (15 sets, daily range): BP systolic 114–127; BP diastolic 55–93; PULSE 86–112; RESP 13–22; TEMP 36.3–36.8; O2SAT 94–99
[2024-07-30 05:04] LABS: Basophils Percent Auto 0.5 % (0.2-1.2); Eosinophils Absolute Auto 0.2 K/mm3 (0-0.3); Eosinophils Percent Auto 3.8 % (0-4.4); Hematocrit 43.3 % (42.0-52.0); Hemoglobin 14.5 g/dL (14.0-18.0); Immature Granulocyte Absolute 0.01 K/mm3 (0.00-0.031); Immature Granulocyte Percent A 0.2 % (0-0.5); Lymphocytes Absolute Auto 1.12 K/mm3 (0.9-3.2); Lymphocytes Percent Auto 18.5 % (18.3-44.2); Mean Corpuscular HGB Conc 33.5 g/dl (32-36); Mean Corpuscular Hemoglobin 29.5 pg (26-34); Mean Corpuscular Volume 88.2 fl (80-100); Mean Platelet Volume 10.9 fl (7.4-10.4); Monocytes Absolute Auto 0.6 K/mm3 (0.1-0.6); Monocytes Percent Auto 9.4 % (2.6-8.5); Neutrophils Absolute Auto 4.1 K/mm3 (1.3-6.7); Neutrophils Percent Auto 67.6 % (45.5-73.1); Platelet Count Result 141 k/mm3 (150-375); Red Blood Count 4.91 M/mm3 (4.6-6.20); Red Cell Distribution Width 12.8 % (11.5-14.5); White Blood Count 6.1 K/mm3 (4.5-10.0)
[2024-07-30 05:18] LABS: Alanine Aminotransferase 18 U/L (6-50); Albumin Level 3.3 g/dL (3.5-5.1); Alkaline Phosphatase 81 U/L (38-126); Anion Gap 8 mmol/L (4-12); Aspartate Amino Transferase 21 U/L (17-59); Bilirubin,Total 0.8 mg/dL (0.2-1.3); Blood Urea Nitrogen 41 mg/dL (9-20); Calcium 8.6 mg/dL (8.4-10.2); Carbon Dioxide 22 mmol/L (22-30); Chloride 110 mmol/L (98-107); Estimated CRCL calculation 42 ml/min; Estimated Glomerular Filt Rate 45; Glucose 130 mg/dL (65-110); Magnesium 2.3 mg/dL (1.6-2.3); Potassium 4.4 mmol/L (3.4-5.0); Sodium 140 mmol/L (137-145)
[2024-07-30] MEDS: SACUBITRIL/VALSARTAN 24-26 MG TABLET 1 TAB PO (08:37)
[2024-07-30] MEDS: DIGOXIN 250 MCG TABLET PO (08:37)
[2024-07-30] MEDS: EMPAGLIFLOZIN 10 MG TABLET PO (08:37)
[2024-07-30] MEDS: SPIRONOLACTONE 25 MG TABLET PO (08:37)
[2024-07-30] MEDS: busPIRone HCL 5 MG TABLET PO (08:37)
[2024-07-30] MEDS: METOPROLOL SUCCINATE EXT REL 50 MG TABCR 100 MG PO ×2 (08:37→18:09)
[2024-07-30] MEDS: APIXABAN 5 MG TABLET PO (08:38)
--- NOTE | 2024-07-30 09:50 | ECG_ITS ---
Test Date: 2024-07-30 13:48:29 Measurements Intervals [place] Rate: 92 P: 80 [place]: 294 QRS: 34 QRSD: 85 T: 153 QT: 328 QTc: 407 Interpretive Statements SINUS RHYTHM WITH FIRST DEGREE AV BLOCK WITH OCCASIONAL SUPRAVENTRICULAR PREMATURE COMPLEXES ST DEVIATION AND MODERATE T-WAVE ABNORMALITY, CONSIDER ANTEROLATERAL ISCHEMIA [-0.1+ mV T WAVE IN V3-V6] Compared to ECG 07/30/2024 13:25:24 SINUS RHYTHM NOW PRESENT Electronically Signed On 07-30-2024 15:32:54 GENERATION TECHNOLOGIST by Jeffery Iverson M.D.
--- NOTE | 2024-07-30 13:27 | WPDANESEPPF ---
Anes - Initial Pre Proc Eval Procedure: Operation Date: 07/30/24 13:30 Proposed Procedures p Electrical Cardioversion - Jeffery Iverson MD s Trans Esophageal Echo - Jeffery Iverson MD Date/Time: 07/30/24 13:27 Surgeon: Ilsa Chan DO Pre Op Diagnosis: Afib RVR, Pulmonary edema Patient Data Age: 78 Gender: M Height: 1.85 m Weight: 91.2 kg Last Vital Signs Temp 36.3 C L 07/30/24 07:49 Pulse 94 07/30/24 10:00 Resp 20 07/30/24 08:00 BP 125/61 07/30/24 07:49 Pulse Ox 96 07/30/24 08:00 O2 Del Method Room Air 07/30/24 08:00 O2 Flow Rate 4 07/25/24 04:00 FiO2 36 07/30/24 03:27 Allergies Allergy/AdvReac Type Severity Reaction Status Date / Time No Known Drug Allergies Allergy Unknown Unknown Verified 07/23/24 22:18 Home Medications Medication Instructions Recorded Confirmed Type amlodipine 10 mg tablet 10 mg PO DAILY 07/23/24 07/23/24 History hydrochlorothiazide 12.5 mg tablet 12.5 mg PO DAILY 07/23/24 07/23/24 History lisinopril 40 mg tablet 40 mg PO DAILY 07/23/24 07/23/24 History Laboratory Tests 07/30/24 04:24 WBC 6.1 K/mm3 (4.5-10.0) RBC 4.91 M/mm3 (4.6-6.20) Hgb 14.5 g/dL (14.0-18.0) Hct 43.3 % (42.0-52.0) MCV 88.2 fl (80-100) MCH 29.5 pg (26-34) MCHC 33.5 g/dl (32-36) RDW 12.8 % (11.5-14.5) Plt Count 141 L k/mm3 (150-375) MPV 10.9 H fl (7.4-10.4) Immature Gran % (Auto) 0.2 % (0-0.5) Neut % (Auto) 67.6 % (45.5-73.1) Lymph % (Auto) 18.5 % (18.3-44.2) [place] % (Auto) 9.4 H % (2.6-8.5) Eos % (Auto) 3.8 % (0-4.4) Baso % (Auto) 0.5 % (0.2-1.2) Lymph # (Auto) 1.12 K/mm3 (0.9-3.2) [place] # (Auto) 0.6 K/mm3 (0.1-0.6) Eos # (Auto) 0.2 K/mm3 (0-0.3) Baso # (Auto) 0.0 K/mm3 (0.0-0.1) Abs Immat Gran (auto) 0.01 K/mm3 (0.00-0.031) Absolute Neuts (auto) 4.1 K/mm3 (1.3-6.7) Absolute Nucleated RBC 0.000 K/mm3 (0.0-0.012) Nucleated RBC % 0.0 % (0.0-0.2) Sodium 140 mmol/L (137-145) Potassium 4.4 mmol/L (3.4-5.0) Chloride 110 H mmol/L (98-107) Carbon Dioxide 22 mmol/L (22-30) Anion Gap 8 mmol/L (4-12) BUN 41 H mg/dL (9-20) Creatinine 1.50 H mg/dL (0.7-1.3) Estim Creat Clear Calc 42 ml/min Estimated GFR 45 L (59 - ) Glucose 130 H mg/dL (65-110) Calcium 8.6 mg/dL (8.4-10.2) Magnesium 2.3 mg/dL (1.6-2.3) Total Bilirubin 0.8 mg/dL (0.2-1.3) AST 21 U/L (17-59) ALT 18 U/L (6-50) Alkaline Phosphatase 81 U/L (38-126) Total Protein 6.0 L g/dL (6.3-8.2) Albumin 3.3 L g/dL (3.5-5.1) Patient hx anesthesia problems: none Family hx anesthesia problems: none Results Review: All pre-operative results and documents have been reviewed as part of the pre-operative evaluation. [facility] Past Medical History Medical History Acute heart failure Atrial fibrillation with RVR Hypertension Pulmonary edema Surgical History Surgical History No history of previous surgery Family History Family History Other Unknown family medical history Social History Social History Smoking packs per day: 1 Smoking cigarettes per day: 20.0 Years smoked: 30 Smoking pack-years: 30.00 Smoking status: Former smoker Drinks per week: 7 Substance use type: does not use Do You Feel Safe in your Home?: Yes Lack of Transportation: No Lack of Food: Never True Current Housing: I Have Housing Concerned About Future Housing: No Difficulty Paying Gas/Electric Bills: No Difficulty Paying for Meds: No Currently Unemployed: No Education: High School Diploma/GED Difficulty w/ Childcare or Family Care: No Spiritual care concerns: No Anes - Eval Final PreProcedure Day of Procedure 07/30/24 13:27 Patient weight: overweight Heart: irregular rhythm Lungs: decreased breath sounds Airway: Mallampati scale class II Neurological: alert and oriented Last oral intake: >/= 8 hours ASA classification: IV Emergent: no Anesthetic plan: proceed Anesthesia type and monitoring: general GIVS and standard monitoring Results Review: All pre-operative results and documents have been reviewed as part of the pre-operative evaluation. Informed Consent: The patient's anesthetic plan and its attendant risks and benefits were discussed with the patient/family/POA. Questions were solicited and answers provided to the satisfaction of the patient/family/POA.
--- NOTE | 2024-07-30 13:30 | ECG_ITS ---
Test Date: 2024-07-30 13:25:24 Measurements Intervals [place] Rate: 99 P: 0 [place]: 0 QRS: 26 QRSD: 89 T: 172 QT: 346 QTc: 445 Interpretive Statements ATRIAL FLUTTER/TACHYCARDIA ST DEVIATION AND MODERATE T-WAVE ABNORMALITY, CONSIDER ANTEROLATERAL ISCHEMIA [-0.1+ mV T WAVE IN V3-V6] Compared to ECG 07/25/2024 11:00:12 ATRIAL FLUTTER NOW PRESENT Electronically Signed On 07-30-2024 15:31:49 COMBAT CONTROL MANAGER by Jeffery Iverson M.D.
--- NOTE | 2024-07-30 14:05 | P.PCNTEECA_ITS ---
PEDRO with Cardioversion Date of procedure: 07/30/24 Procedure Type: Date Of Procedure: 07/30/2024 Brief History Of Present Illness: Patient is a 78 year old male referred for PEDRO-guided DCCV for atrial fibrillation with RVR. Indication: Atrial fibrillation with RVR. Procedure In Detail: After verbal and written informed consent was obtained, the patient risks, benefits, and alternatives explained in detail. The patient agreed to proceed with the plan of care as outlined above.?The patient was evaluated at bedside in the Clinical Nutrition Manager.?The posterior oropharynx, neck, and jaw angle all within normal limits on examination. Lungs were clear to auscultation. Patient was monitored throughout the study with telemetry, oxygen saturation, end-tidal CO2 monitoring, blood pressure, heart rate, and respirations.?The posterior hyp opharynx was then locally anesthetized using repeated administration of Hurricaine spray. After local anesthetic of the posterior hypopharynx was achieved and the oral bite block placed, moderate sedation was administered.?After confirmation of adequate moderate sedation, the transesophageal echocardiogram probe was advanced through the oral bite block into the posterior hypopharynx and into the esophagus easily and without complication.?Multiple, multiplanar echocardiographic images were obtained in multiple standard re-projections.?Definity was administered.?At the conclusion of the study, the transesophageal echocardiogram probe was removed easily and without complication. The patient tolerated the procedure well without difficulty.? Moderate Sedation / Anesthesia Administration: Sedation administered by Anesthesia. FINDINGS: LEFT ATRIUM: Smoke noted in the left atrium; no thrombus. LEFT ATRIAL APPENDAGE: Anatomically normal structure with prominent pectinate muscles without thrombus identified. ? CARDIOVERSION: Defibrillator pads placed in an AP position. Synchronized electrical cardioversion was performed with 1 shock at 250 joules, which converted patient to sinus rhythm with first degree AV block and PACs. CONCLUSION: Successful cardioversion to sinus rhythm with 1 shock at 250 joules. Complications: None
--- NOTE | 2024-07-30 14:09 | P.PNCA_ITS ---
Progress Note: A&P Assessment and Plan (1) Atrial fibrillation with RVR: Code(s): I48.91 - Unspecified atrial fibrillation Status: Acute (2) Acute heart failure: Code(s): I50.9 - Heart failure, unspecified Status: Acute (3) Hypertension: Code(s): I10 - Essential (primary) hypertension Status: Acute Plan 78-year-old man with hypertension who initially presented with shortness of breath admitted for acute systolic heart failure in setting of atrial fibril lation with rapid ventricular rate Atrial fibrillation with rapid ventricular rate -Underwent successful PEDRO-guided DCCV with conversion to sinus rhythm. -Since DCCV successful, I am going to stop his Digoxin. -Continue Toprol. -Continue Eliquis Acute heart failure with reduced LVEF. -Continue Entresto 24-26 mg p.o. b.i.d., spironolactone 25 mg p.o. daily, Jardiance 10 mg p.o. daily, Toprol 100 mg p.o. b.i.d. -Lasix switched over to PO. Hypertension -continue spironolactone 25 mg p.o. daily, Entresto, Toprol. Okay to discharge home later this afternoon from a cardiac standpoint. Recom mendations and plan discussed with Hospitalist. Will arrange follow up in my office. Subjective Date/time seen: 07/30/24 14:09 Interval history: Reason for visit: CHF, Atrial fibrillation with RVR Feels okay. Tele with rate controlled AFIB/atrial flutter. Review of Systems Review of Systems: All systems reviewed & are unremarkable except as noted in HPI and below (HPI) Exam Const: General: comfortable and no acute distress HENMT: Mouth: Yes moist mucous membranes Eyes: General: appearance normal, both eyes and all related structures Sclera: sclerae normal Resp: Effort & Inspection: normal respiratory effort Cardio: Rhythm: abnormal rhythm irregularly irregular Skin: General skin exam: normal color Neuro: Speech: normal speech Psych: Mental Status: mental status grossly normal Affect: normal affect Objective Data Vital Signs Vital Signs: Vital Signs - 24 hr 07/29/24 16:00 07/29/24 18:00 07/29/24 16:00 Temperature Pulse Rate 76 87 Respiratory Rate Blood Pressure Pulse Oximetry Oxygen Delivery Room Air Oxygen Flow Rate Fraction of Inspired Oxygen 07/29/24 16:00 07/29/24 20:28 07/29/24 20:00 Temperature 36.9 C 36.7 C Pulse Rate 68 78 Respiratory Rate 22 H 20 Blood Pressure 116/86 118/85 Pulse Oximetry 93 93 Oxygen Delivery Room Air Oxygen Flow Rate Fraction of Inspired Oxygen 07/29/24 20:00 07/29/24 22:00 07/29/24 23:27 Temperature 36.6 C Pulse Rate 90 95 89 Respiratory Rate 20 Blood Pressure 111/42 L Pulse Oximetry 92 Oxygen Delivery Oxygen Flow Rate Fraction of Inspired Oxygen 07/30/24 00:00 07/30/24 00:00 07/30/24 02:00 Temperature Pulse Rate 86 95 Respiratory Rate Blood Pressure Pulse Oximetry Oxygen Delivery Room Air Oxygen Flow Rate Fraction of Inspired Oxygen 07/30/24 03:27 07/30/24 04:00 07/30/24 04:00 Temperature 36.6 C Pulse Rate 93 93 Respiratory Rate 19 Blood Pressure 117/55 L Pulse Oximetry 94 Oxygen Delivery Room Air Oxygen Flow Rate Fraction of Inspired Oxygen 36 07/30/24 06:00 07/30/24 07:49 07/30/24 08:37 Temperature 36.3 C L Pulse Rate 99 88 112 H Respiratory Rate 20 Blood Pressure 125/61 Pulse Oximetry 96 Oxygen Delivery Oxygen Flow Rate Fraction of Inspired Oxygen 07/30/24 08:37 07/30/24 08:00 07/30/24 08:00 Temperature Pulse Rate 108 H 108 H 88 Respiratory Rate 20 Blood Pressure Pulse Oximetry 96 Oxygen Delivery Room Air Oxygen Flow Rate Fraction of Inspired Oxygen 07/30/24 10:00 07/30/24 13:55 07/30/24 14:00 Temperature Pulse Rate 94 89 94 Respiratory Rate 13 22 H Blood Pressure 120/93 H 123/91 H Pulse Oximetry 98 98 Oxygen Delivery Nasal Cannula Nasal Cannula Oxygen Flow Rate 4 4 Fraction of Inspired Oxygen Intake/Output Intake/Output: Intake & Output 07/27/24 07/28/24 07/29/24 07/30/24 23:59 23:59 23:59 23:59 Intake Total 1886 2650 1130 500 Output Total 900 1800 Balance 200 329 8379 500 Meds/Results Medications: Active Medications Generic Name Dose Route Start Last Admin Trade Name Freq PRN Reason Stop Dose Admin Acetaminophen 650 mg 07/23/24 20:07 07/25/24 16:27 Acetaminophen 325 Mg Tablet PO 650 mg Q4H PRN Administration Mild Pain (1-3) or Fever Hydrocodone Bitart/Acetaminophen 1 tab 07/23/24 20:07 07/24/24 01:57 Hydrocodone/Acetaminophen (*Crx) 5-325 Mg Tablet PO 1 tab Q4H PRN Administration Pain Rated 4-6 Amoxicillin/Clavulanate Potassium 1 tablet 07/30/24 09:00 Amoxicillin/Clavulanate K 875-125 Mg Tab PO 07/31/24 21:01 Q12HR LETICIA Apixaban 5 mg 07/24/24 10:25 07/30/24 08:38 Apixaban 5 Mg Tablet PO 5 mg Q12HR LETICIA Administration Buspirone HCl 5 mg 07/25/24 14:40 07/30/24 08:37 Buspirone Hcl 5 Mg Tablet PO 5 mg Q12HR LETICIA Administration Doxycycline Hyclate 100 mg 07/29/24 21:00 07/29/24 20:44 Doxycycline Hyclate 100 Mg Tablet PO 07/31/24 21:01 100 mg Q12HR LETICIA Administration Empagliflozin 10 mg 07/25/24 09:00 07/30/24 08:37 Empagliflozin 10 Mg Tablet PO 10 mg DAILY LETICIA Administration Fentanyl Citrate 25 mcg 07/30/24 13:29 Fentanyl Citrate Inj (*Crx) 100 Mcg/2 Ml Vial IV PUSH Q2M PRN Pain Furosemide 40 mg 07/31/24 09:00 Furosemide 40 Mg Tablet PO DAILY LETICIA Guaifenesin/Dextromethorphan 10 ml 07/24/24 16:24 07/29/24 20:41 Guaifenesin/Dextromethorphan 10 Ml Udc PO 10 ml TID PRN Administration Cough Lactated Ringer's 1,000 mls @ 30 mls/hr 07/30/24 13:30 Lr - Lactated Ringers Iv IV CONT .Q24H LETICIA Lactated Ringer's 1,000 mls @ 30 mls/hr 07/30/24 13:30 Lr - Lactated Ringers Iv IV CONT .Q24H LETICIA Melatonin 5 mg 07/24/24 21:00 07/29/24 20:42 Melatonin 5 Mg Tablet PO 5 mg HS LETICIA Administration Metoprolol Succinate 100 mg 07/27/24 17:00 07/30/24 08:37 Metoprolol Succinate Ext Rel 50 Mg Tabcr PO 100 mg BID LETICIA Administration Metoprolol Tartrate 5 mg 07/24/24 10:19 07/27/24 17:55 Metoprolol Tartrate Inj 5 Mg/5 Ml Vial IV PUSH 5 mg Q4H PRN Administration Tachycardia Ondansetron HCl 4 mg 07/23/24 20:07 Ondansetron Inj 4 Mg/2 Ml Vial IV PUSH Q4H PRN Nausea Ondansetron HCl 4 mg 07/30/24 13:29 Ondansetron Inj 4 Mg/2 Ml Vial IV PUSH ONCE PRN Nausea Quetiapine Fumarate 50 mg 07/29/24 21:00 07/29/24 20:43 Quetiapine Fumarate 25 Mg Tablet PO 25 mg HS LETICIA Administration Sacubitril/Valsartan 1 tab 07/24/24 21:00 07/30/24 08:37 Sacubitril/Valsartan 24-26 Mg Tablet PO 1 tab Q12HR LETICIA Administration Spironolactone 25 mg 07/24/24 14:55 07/30/24 08:37 Spironolactone 25 Mg Tablet PO 25 mg QAM LETICIA Administration Trazodone HCl 50 mg 07/26/24 21:00 07/29/24 20:42 Trazodone Hcl 50 Mg Tablet PO 50 mg HS LETICIA Administration Radiology Results: ITS Impressions Chest X-Ray 07/23/24 18:15 IMPRESSION: Pulmonary opacities may represent moderate edema with a moderate left pleural effusion. Infection not excluded. Chest CT 07/25/24 11:45 IMPRESSION: 1. Moderate emphysema with patchy diffuse bilateral lung disease most likely multifocal pneumonia with differential including pulmonary edema or chronic interstitial lung disease. 2. Mild wall thickening along the anteromedial margin of a large cavitary lesion in the lingula most likely related to either emphysema or chronic infection with some peripheral atelectasis/scarring. 3. Small bilateral pleural effusions. 4. Cardiomegaly. Labs Labs: Laboratory Results - last 24 hr 07/30/24 04:24 WBC 6.1 RBC 4.91 Hgb 14.5 Hct 43.3 MCV 88.2 MCH 29.5 MCHC 33.5 RDW 12.8 Plt Count 141 L MPV 10.9 H Immature Gran % (Auto) 0.2 Neut % (Auto) 67.6 Lymph % (Auto) 18.5 [place] % (Auto) 9.4 H Eos % (Auto) 3.8 Baso % (Auto) 0.5 Lymph # (Auto) 1.12 [place] # (Auto) 0.6 Eos # (Auto) 0.2 Baso # (Auto) 0.0 Abs Immat Gran (auto) 0.01 Absolute Neuts (auto) 4.1 Absolute Nucleated RBC 0.000 Nucleated RBC % 0.0 Sodium 140 Potassium 4.4 Chloride 110 H Carbon Dioxide 22 Anion Gap 8 BUN 41 H Creatinine 1.50 H Estim Creat Clear Calc 42 Estimated GFR 45 L Glucose 130 H Calcium 8.6 Magnesium 2.3 Total Bilirubin 0.8 AST 21 ALT 18 Alkaline Phosphatase 81 Total Protein 6.0 L Albumin 3.3 L
--- NOTE | 2024-07-30 17:05 | PM.DS ---
DS: Admitting Diagnosis Discharge Date 07/30/2024 Admitting Diagnosis Shortness of breath and palpitation DS: Discharge Diagnosis Discharge Diagnosis (1) Acute heart failure: Code(s): I50.9 - Heart failure, unspecified Status: Acute (2) Atrial fibrillation with RVR: Code(s): I48.91 - Unspecified atrial fibrillation Status: Acute Plan Atrial fibrillation with rapid ventricular response Status post Cardizem infusion [id number] of 4, continue Eliquis 5mg bid adjusted Metoprolol to 100mg by cards and monitor overnight Cardiology following Monitor electrolytes. 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 Chest x-ray showed pulmonary edema rule out infection Contineu Spironolactone, Entresto, Digoxin 0.25mg and Metoptolol 100mg bid Possible PEDRO with cardioversion tomorrow Cardiology following Pneumonia CT chest showed multifocal pneumonia Blood culture, MRSA on Rocephin and Doxycycline, changed to Augmentin and Doxycycline to complete 5 days monitor Hypertension Titrate her medications with clinical course. Insomnia Seroquel 50mg nighttime monitor DVT prophylaxis on Eliquis. Surrogate decision maker Catina James DS: Summary Hospital Course Hospital Course: [age] male past medical history of hypertension presented to the ER on account of shortness of breath palpitations. Patient history having a mild cough for about a week and yesterday he suddenly started having shortness of breath and palpitations associated with nausea prompting him to present to the ER for evaluation and care. Denies any fever, no vomiting no abdominal pain no diarrhea dysuria no focal symptoms no loss of consciousness. ER evaluation the for her is 151, respiratory 20, blood pressure 130/90, saturating 91% on 4 L oxygen. Labs notable for creatinine 1.4, troponin 0.057, repeat 0.105, NT proBNP 9110. Chest x-ray showed pulmonary opacities representing moderate edema with moderate left pleural effusion. Infection not excluded. EKG showed atrial fibrillation with rapid ventricular response. Patient was started on Cardizem infusion prior to admission. Patient was evaluated by Cardiology. Patient underwent PEDRO-guided DCCV for atrial fibrillation with RVR. Digoxin was discontinued by Cardiology.Continue Toprol and Eliquis. In regards to heart failure continue Entresto, spironolactone, Jardiance, Lasix. Advised to follow-up with cardiology and PCP within 1 week upon discharge Status at Discharge Cognitive/behavioral status at discharge: Stable Time Spent with Patient Time attestation: Total time spent providing and/or coordinating discharge services: 45 minute Exam Narrative: General: alert and comfortable Eyes: EOMI, PERRLA ENNT External ears normal, Neck is supple, no masses, Respiratory systems: Clear to auscultation Cardiovascular S1, S2, normal rhythm, no murmur, rub, or gallop; no thrill or palpable murmurs on palpation. Gastrointestinal: soft, non-tender, and non-distended abdomen with no masses; BS present Skin: no rash, lesions, ulcerations, subcutaneous nodules or induration Musculoskeletal: no abnormality and no tenderness, normal ROM Neurologic: Alert and oriented x3, non focal Mental Status Exam: normal affect DS: Data Data Completed and Pending Labs on day of discharge: Labs from last 24 hours 07/30/24 04:24 WBC 6.1 RBC 4.91 Hgb 14.5 Hct 43.3 MCV 88.2 MCH 29.5 MCHC 33.5 RDW 12.8 Plt Count 141 L MPV 10.9 H Immature Gran % (Auto) 0.2 Neut % (Auto) 67.6 Lymph % (Auto) 18.5 [place] % (Auto) 9.4 H Eos % (Auto) 3.8 Baso % (Auto) 0.5 Lymph # (Auto) 1.12 [place] # (Auto) 0.6 Eos # (Auto) 0.2 Baso # (Auto) 0.0 Abs Immat Gran (auto) 0.01 Absolute Neuts (auto) 4.1 Absolute Nucleated RBC 0.000 Nucleated RBC % 0.0 Sodium 140 Potassium 4.4 Chloride 110 H Carbon Dioxide 22 Anion Gap 8 BUN 41 H Creatinine 1.50 H Estim Creat Clear Calc 42 Estimated GFR 45 L Glucose 130 H Calcium 8.6 Magnesium 2.3 Total Bilirubin 0.8 AST 21 ALT 18 Alkaline Phosphatase 81 Total Protein 6.0 L Albumin 3.3 L Preliminary micro results at discharge 07/27/24 08:19 Blood Culture - Preliminary Blood 07/27/24 08:09 Blood Culture - Preliminary Blood Imaging Radiologist's impression: ITS Impressions Chest X-Ray 07/23/24 18:15 IMPRESSION: Pulmonary opacities may represent moderate edema with a moderate left pleural effusion. Infection not excluded. Chest CT 07/25/24 11:45 IMPRESSION: 1. Moderate emphysema with patchy diffuse bilateral lung disease most likely multifocal pneumonia with differential including pulmonary edema or chronic interstitial lung disease. 2. Mild wall thickening along the anteromedial margin of a large cavitary lesion in the lingula most likely related to either emphysema or chronic infection with some peripheral atelectasis/scarring. 3. Small bilateral pleural effusions. 4. Cardiomegaly. Discharge Plan Discharge Attending physician on discharge: Nehemiah Tamez Consulting providers: Jeffery Iverson Discharging Clinician: Nehemiah Tamez Anticipated Discharge Date/Time: 07/30/24 16:59 Patient Disposition: Home, Self-Care Activity: as tolerated Diet: heart healthy Discharge Instructions: Follow-up with PCP and Cardiology within a week upon discharge In the event of chest pain, shortness of breath, palpitations visit nearby ED Complete amoxicillin clavulanic acid and doxycycline for 3 days Patient Instructions: Antibiotic Form, Heart Failure (GEN), High Troponin Levels (GEN) Stand Alone Forms: General Discharge Information Follow-up/Referrals: Cora,Rj Hodges MD [Primary Care Provider] - 1 Week Jeffery Iverson MD [Physician] - 1 Week Discharge Medications: New Eliquis 5 mg Tablet 5 mg PO Q12HR Qty: 30 0RF doxycycline hyclate 100 mg Tablet 100 mg PO Q12HR Qty: 6 0RF Jardiance 10 mg Tablet 10 mg PO DAILY Qty: 30 0RF furosemide 40 mg Tablet 40 mg PO DAILY Qty: 30 0RF metoprolol succinate 50 mg Tablet Extended Release 24 Hr 100 mg PO BID Qty: 60 0RF Entresto 24-26 mg Tablet 1 tab PO Q12HR Qty: 30 0RF spironolactone 25 mg Tablet 25 mg PO QAM Qty: 30 0RF amoxicillin-pot clavulanate 875-125 mg tablet 1 tablet PO Q12H Qty: 6 0RF Continued amlodipine 10 mg tablet 10 mg PO DAILY lisinopril 40 mg tablet 40 mg PO DAILY hydrochlorothiazide 12.5 mg tablet 12.5 mg PO DAILY Date of admission: 07/27/24 09:56 Primary Care Provider: [place],Rj Hodges Admitting Provider: Ilsa Chan Attending physician on admission: Hopen,Ilsa J. Condition: Stable Hospitalist MIPS Heart Failure (Qualifier) Patient has current or prior documentation of LVEF less than or equal to 40%, or mod/servere depressed LVSF?: Yes IF NO, STOP HERE If Yes, Heart Failure (Qualifier) Patient was prescribed or already taking an Angiotensin-Converting Enzyme (PK) Inhibitor, or Antiotensin Receptor [place] (ARB): Yes Patient was prescribed or already taking bisoprolol, carvedilol, or sustained release metoprolol succinate: Yes
[2024-07-30] MEDS: AMOXICILLIN/CLAVULANATE K 875-125 MG TAB 1 TABLET PO (18:09)
[2024-07-30] MEDS: DOXYCYCLINE HYCLATE 100 MG TABLET PO (18:09)
== END 2024-07-30 18:26 | disposition home or self-care (01) | DRG 308 ==
LOC: ANHED 20:06 → ANHIMU 21:25
PROVIDERS: Internal Medicine; Student in an Organized Health Care Education/Training Program; Admitting Provider Internal Medicine; Emergency Provider Emergency Medicine; PCP Internal Medicine; Visit Provider General Practice
PROC: 5A2204Z Restoration of Cardiac Rhythm, Single (ICD-10-PCS; principal; 2024-07-30 13:30)
PROC: 5A2204Z Restoration of Cardiac Rhythm, Single (ICD-10-PCS; CPT 93312; 2024-07-30 13:30)
DX: I48.19 Other persistent atrial fibrillation (principal); I50.21 Acute systolic (congestive) heart failure; J18.9 Pneumonia, unspecified organism; I11.0 Hypertensive heart disease with heart failure; I42.8 Other cardiomyopathies; G47.00 Insomnia, unspecified; I50.9 Heart failure, unspecified; Z87.891 Personal history of nicotine dependence
CPT/HCPCS: 36415; 71045; 71250; 80053; 83605; 83690; 83735; 83880; 84443; 84484; 85025; 85610; 85730; 87040; 92960; 93005; 93306; 94618; 96365; 96366; 96372; 96375; 99285; A9270; C8925; G0378; J0696; J1160; J1650; J1940; J2003; J7030; J7040

== ENCOUNTER 2024-11-19 01:07 | Day surgery (SDC) | payer MEDICARE, SELFPAY ==
[2024-11-18 11:21] VITALS: BMI 26.9
[2024-11-19] VITALS (15 sets, daily range): BP systolic 93–140; BP diastolic 54–90; PULSE 50–70; RESP 12–20; TEMP 36.3; O2SAT 95–98; BMI 25.4
--- OUTSIDE RECORDS SUMMARY | 2024-11-19 01:10 | XMS_ITS | Encounter Summary ---
Author Organization [facility] Address [address] [place] [address] Phone Care Team Providers Care Oyster Buyer Name Role Phone Rj Shepherd MD Primary Care Provider [phone] Forrest Meyer MD Unavailable Vivek Chew APRN, CNP Unavailable [phone] Jeffery Iverson MD Unavailable Reason for Visit * Reason Comments Medication Refill Encounter Details Date Type Department Care Team (Late st Contact Info) Description 10/05/2023 Refill [facility] - Primary Care - [place] [address] [place] [address] Rj Shepherd MD [address] [place] [address] Medication Refill Social History Tobacco Use Types Packs/Day Years Used Date Smoking Tobacco: Former Smokeless Tobacco: Never Alcohol Use Standard Drinks/Week Comments Yes 0 (1 standard drink = 0.6 oz pur e alcohol) PHQ-2 Answer Date Recorded Total Score - Questions 1-9 0 04/2024 Sex and Gender Information Value Date Recorded Sex Assigned at Not on file Legal Sex Male 10:49 PM CDT Gender Identity Not on file Sexual Orientation Not on file documented as of this encounter Miscellaneous Notes * Telephone Encounter - Zen Stone RN - 10/06/2023 8:57 AM CST Refill requested too soon. TABLE THINNER documented in this encounter Plan of Treatment Upcoming Encounters Date Type Department Care Team (Late st Contact Info) Description 09/22/2025 10:30 AM VEGETABLE THINNER [facility] [place] [address] [place] [address] Rj Shepherd MD [address] [place] [address] documented as of this encounter Visit Diagnoses Not on filedocumented in this encounter Additional Health Concerns Assessment Noted Time PHQ-9 Depression Total Score: 0 09/05/19 7:56 AM VEGETABLE THINNER documented as of this encounter Care Teams Oyster Buyer Relationship Specialty Start Date End Date Rj Shepherd MD [address] [place] [address] PCP - General Internal Medicine 09/30/15 Forrest Meyer MD [address] [address] Consulting Physician Urological Surgery 05/04/22 Vivek Chew, ENVIRONMENTAL COMPLIANCE ENGINEER, DRY CURER [address] [place] [address] Nurse Practitioner Advanced Practice Nurse 03/31/22 Jeffery Iverson MD [address] [facility] [address] [place], [place] [id number] Consulting Physician Cardiology 08/05/24 documented as of this encounter
--- OUTSIDE RECORDS SUMMARY | 2024-11-19 01:10 | XMS_ITS | Encounter Summary ---
Author Organization [facility] Address [address] [place] [address] Phone Care Team Providers Care Pool Manager Name Role Phone Rj Shephedr MD Primary Care Provider [phone] Forrest Meyer MD Unavailable Vivek Chew APRN, CNP Unavailable [phone] Jeffery Iverson MD Unavailable Reason for Visit * Reason Comments Medication Refill Encounter Details Date Type Department Care Team (Late st Contact Info) Description 10/29/2023 Refill [facility] - [facility] - [place] [address] [place] [address] Rj Shepherd MD [address] [place] [address] Medication Refill Social History Tobacco [...] Telephone Encounter - Zen Stone RN - 10/30/2023 10:02 AM CST Medication(s) refilled and signed per [facility] Chronic Medication Refill Standing Order for Pediatricand Adult Patients. Requested Prescriptions Pending Prescriptions Disp Refills hydroCHLOROthiazide 12.5 MG Tablet [Pharmacy Med Name: hydroCHLOROthiazide 12.5 MG Oral Tablet] 100Tablet 2 Sig: TAKE 1 TABLET BY MOUTH IN THE MORNING Diuretics Protocol Passed - 10/29/2023 9:17 PM Passed - Serum potassium on record in past 12 months POTASSIUM Date Value Ref Range Status 09/05/2023 4.4 3.5 - 5.1 mmol/L Final Passed - Serum sodium on record in past 12 months SODIUM Date Value Ref Range Status 09/05/2023 139 136 - 145 mmol/L Final Passed - Blood pressure on record in past 12 months Clinician-entered: BP Readings from Last 3 Encounters: 09/05/23 120/70 09/02/22 138/80 06/15/22 110/70 Patient-entered: No data recorded Passed - Visit with relevant provider in past 12 months or upcoming 90 days Recent Visits Date Type Provider Dept 09/05/23 Office Visit Rj Shepherd MD [facility] Showing recent visits within past 365 days and meeting all other requirements Future Appointments No visits were found meeting these conditions. Showing future appointments within next 90 days and meeting all other requirements Passed - GFR on record in past 12 months GFR, EST. NONAFRICAN Date Value Ref Range Status 09/05/2023 >60 >=60 Final HEMODIALYSIS CHARGE documented in this encounter Plan of Treatment Upcoming Encounters Date Type Department Care Team (Late st Contact Info) Description 09/22/2025 10:30 AM RN HEMODIALYSIS CHARGE Office Visit [facility] - Primary Care - [place] [address] [place] [id number] Rj Shepherd MD [address] [place] [address] documented as of this encounter Visit Diagnoses Not on filedocumented in this encounter Additional Health Concerns Assessment Noted Time PHQ-9 Depression Total Score: 0 09/05/19 24 7:56 AM RN HEMODIALYSIS CHARGE documented as of this encounter Care Teams Pool Manager Relationship Specialty Start Date End Date Rj Shepherd MD [address] [place] [address] PCP - General Internal Medicine 09/30/15 Forrest Meyer MD [address] [facility], [address] [address] Consulting Physician Urological Surgery 05/04/22 Vivek Chew APRN, ROZ [address] [place] [address] Nurse Practitioner Advanced Practice Nurse 03/31/22 Jeffery Iverson MD [address] [facility] [address] [place], [place] [id number] Consulting Physician Cardiology 08/05/24 documented as of this encounter
--- OUTSIDE RECORDS SUMMARY | 2024-11-19 01:10 | XMS_ITS | Encounter Summary ---
Author Organization [facility] Address [address] [place] [address] Phone Care Team Providers Care Account Strategist Name Role Phone Rj Shepherd MD Primary Care Provider [phone] Forrest Meyer MD Unavailable Vivek Chew APRN, CNP Unavailable [phone] Jeffery Iverson MD Unavailable Reason for Visit * Reason Comments Medication Refill Encounter Details Date Type Department Care Team (Late st Contact Info) Description 06/10/2021 Refill [facility] - [facility] - [place] [address] [place] [address] Rj Shepherd MD [address] [place] [address] Medication Refill Social History Tobacco Use Types Packs/Day Years Used Date Smoking Tobacco: Former Smokeless Tobacco: Never Alcohol Use Standard Drinks/Week Comments Yes 0 (1 standard drink = 0.6 oz pur e alcohol) PHQ-2 Answer Date Recorded PHQ-2 Score 0 08/01/2019 Sex and Gender Information Value Date Recorded Sex Assigned at Not on file Legal Sex Male 10:49 PM CDT Gender Identity Not on file Sexual Orientation Not on file documented as of this encounter Miscellaneous Notes * Telephone Encounter - Sandee Child RN - 06/11/2021 7:48 AM CDT Medication approved and signed per standing order protocol. documented in this encounter Plan of Treatment Upcoming Encounters Date Type Department Care Team (Late st Contact Info) Description 09/22/2025 10:30 AM JAVA CORE DEVELOPER [facility] [place] [address] [place] [address] Rj Shepherd MD [address] [place] [address] documented as of this encounter Visit Diagnoses Not on filedocumented in this encounter Additional Health Concerns Assessment Noted Time PHQ-9 Depression Total Score: 0 10/04/19 20 9:00 AM JAVA CORE DEVELOPER documented as of this encounter Care Teams Account Strategist Relationship Specialty Start Date End Date Rj Shepherd MD [address] [place] [address] PCP - General Internal Medicine 09/30/15 Forrest Meyer MD [address] [address] Consulting Physician Urological Surgery 05/04/22 Vivek Chew APRN, FLOOR PLAN ADJUSTER [address] [place] [address] Nurse Practitioner Advanced Practice Nurse 03/31/22 Jeffery Iverson MD [address] [facility] [address] [place] [address] Consulting Physician Cardiology 08/05/24 documented as of this encounter
--- OUTSIDE RECORDS SUMMARY | 2024-11-19 01:10 | XMS_ITS | Clinical Summary ---
Author Organization [facility] Address [address] [place] [address] Phone Care Team Providers Care Director [employer] Name Role Phone Rj Shepherd MD Primary Care Provider [phone] Forrest Meyer MD Unavailable Vivek Chew APRN, CARRIER DRIVER Unavailable [phone] Jeffery Iverson MD Unavailable Allergies Active Allergy Reactions Criticality Noted Date Comments Enalaprilat Unknown Medications Eliquis 5 MG Tablet Take 5 mg by mouth 2 times daily. 07/30/2024 Active Jardiance 10 MG Tablet Take 10 mg by mouth daily. 07/30/2024 Active furosemide (LASIX) 40 MG Tablet Take 40 mg by mouth daily. 07/30/2024 Active spironolactone (ALDACTONE) 25 MG Tablet Take 25 mg by mouth every morning. 07/30/2024 Active metoprolol succinate (TOPROL-XL) 200 MG TABLET SR 24 HR Take 200 mg by mouth. 08/09/2024 Active sacubitril-valsa rtan (ENTRESTO) 49-51 MG Tablet Take 1 Tablet by mouth 2 times daily. 08/09/2024 Active Active Problems Problem Noted Date Diagnosed Date Chronic anticoagulation 08/09/2024 Paroxysmal atrial fibrillation 08/05/2024 HFrEF (heart failure with reduced ejection fract ion) 08/05/2024 Panlobular emphysema 08/05/2024 Hypertension, essential Arthritis Thrombocytopenia Encounters Date Type Department Care Team Description 09/23/2024 Results Follow-Up [facility] [place] [address] [place] [address] Rj Shepherd MD 09/19/2024 11:20 AM SUMO WRESTLER Ancillary Procedure [facility] Diagnostic Radiology - [place] [address] [place] [address] Rj Shepherd MD Pneumonia due to infectious organism, unspecified laterality, unspecified part of lung Discharge Disposition: Discharged to home or Selfcare 09/19/2024 11:00 AM SUMO WRESTLER Office Visit [facility] [place] [address] [place] [address] Rj Shepherd MD Hypertension, essential (Primary Dx); HFrEF (heart failure with reduced ejection fraction) (HCC); Paroxysmal atrial fibrillation (HCC); Panlobular emphysema (HCC); Arthritis; Pneumonia due to infectious organism, unspecified laterality, unspecified part of lung Discharge Disposition: Discharged to home or Selfcare 09/19/2024 9:20 AM SUMO WRESTLER Lab [facility] [place] [address] [place] [address] [facility] HFrEF (heart failure with reduced ejection fraction) (HCC); Hypertension, essential; Hyperglycemia Discharge Disposition: Discharged to home or Selfcare 09/19/2024 Results Follow-Up [facility] [place] [address] [place] [address] Rj Shepherd MD Hyperglycemia (Primary Dx) 09/19/2024 Travel 09/05/2024 Telephone [facility] [address] [place] [address] Rj Shepherd MD Need Order 08/23/2024 8:40 AM SUMO WRESTLER Lab [facility] [place] [address] [address] [facility] HFrEF (heart failure with reduced ejection fraction) ([facility]) Discharge Disposition: Discharged to home or Selfcare 08/23/2024 Results Follow-Up [facility] - [place] [facility] - [place] [address] [place] [address] Rj Shepherd MD Pneumonia due to infectious organism, unspecified laterality, unspecified part of lung (Primary Dx) 08/23/2024 Travel from Last 3 Months Immunizations Immunization Administration Dates Next Due Covid-19 Vaccine, Vector-nr, Rs-ad26, Pf, 0.5 Ml (SENTHIL/J&J) 11/05/2020 Influenza Vaccine 09/10/2012 Influenza Vaccine, Quadrivalent, PF 08/31/2021,1 10/04/2019 Influenza, High-dose, Quadrivalent 06/09/2023, Influenza, Seasonal, Injectable, Undefined 06/20 PUR TDAP 7+ YRS IM 04/07/2016 Pneumococcal Vaccine - 13 Valent 07/19/2017 Pneumococcal Vaccine Adult - 23 Valent 4 TD VACCINE 08/28/2003 Social History Tobacco Use Types Packs/Day Years Used Date Smoking Tobacco: Former Cigarettes 1 25 1 970 - 1994 Smokeless Tobacco: Never Alcohol Use Standard Drinks/Week Comments Yes 0 (1 standard drink = 0.6 oz pur e alcohol) PHQ-2 Answer Date Recorded Total Score - Questions 1-9 0 08/29 Sex and Gender Information Value Date Recorded Sex Assigned at Not on file Legal Sex Male 10:49 PM CDT Gender Identity Not on file Sexual Orientation Not on file Last Filed Vital Signs Vital Sign Reading Time Taken Comments Blood Pressure 122/70 09/19/2024 10:53 AM SUMO WRESTLER Pulse 78 09/19/2024 10:53 AM SUMO WRESTLER Temperature 36.4 C (97.5 F) 09/19/2024 10:53 AM SUMO WRESTLER Respiratory Rate 20 09/19/2024 10:53 AM SUMO WRESTLER Oxygen Saturation 97% 09/19/2024 10:53 AM SUMO WRESTLER Inhaled Oxygen Concentration - - Weight 91 kg (200 lb 9.6 oz) 09/19/2024 10:53 AM SUMO WRESTLER Height 185.4 cm (6' 1 ) 09/19/2024 10:53 AM SUMO WRESTLER Body Mass Index 26.47 09/19/2024 10:53 AM SUMO WRESTLER Plan of Treatment Upcoming Encounters Date Type Department Care Team (Late st Contact Info) Description 09/22/2025 10:30 AM SUMO WRESTLER Office Visit [facility] - [place] Care - [place] [address] [place] [address] Rj Shepherd MD [address] [place], [place] [id number] Health Maintenance Due Date Last Done Comments Zoster Immunization (1 of 2) 1996 Respiratory Syncytial Virus (RSV) Immunization (Adult) (1 - 1-dose 75+ series) 2021 Influenza Immunization (#1) 04/28/202405/28, 07/07/2022, 08/31/2021, Additional history exists SARS-COV-2 Immunization () 04/28/2024 06/09/2023, 03/21/2022, 06/21/2021, Additional history exists Td Immunization Every 10 Years (Adults With 1 Tdap) 04/07/2026 04/07/2016, 08/28/2003 Pneumococcal Immunization (50+ years) Completed 07/19/2017, 07/28/2014 Pneumococcal Immunization Combined Discontinued 07/19/2017, 07/28/2014 Colorectal Cancer Screening Discontinued Immunochemical Fecal Occult Blood Discontinued 06/05/2019, 07/19/2017 Hepatitis C Virus (HCV) Screening Completed 09/05/2023 Cologuard Discontinued Colonoscopy High Risk Discontinued Colonoscopy Discontinued Hepatitis B Immunization Aged Out No longer eligible based on patient's age to complete this topic Meningococcal Immunization (ACWY) Aged Out No longer eligible based on patient's age to complete this topic Rotavirus Immunization Aged Out No lo nger eligible based on patient's age to complete this topic Procedures Procedure Name Priority Date/Time Associated Diagnosis Comments XR CHEST 2 VIEWS Routine 09/19/2024 11:3 0 AM SUMO WRESTLER Pneumonia due to infectious organism, unspecified laterality, unspecified part of lung CBC WITH AUTO DIFFERENTIAL Routine 09/19/2024 8:23 AM SUMO WRESTLER Hypertension, essential HEMOGLOBIN A1C W/ ESTIMATED GLUCOSE Routine 09/19/2024 8:23 AM SUMO WRESTLER Hyperglycemia COMPLETE BLOOD COUNT (CBC) WITH DIFF Routine 09/19/2024 8:23 AM SUMO WRESTLER Hypertension, essential CMP (COMPREHENSIVE METABOLIC PANEL) Routine 09/19/2024 8:23 AM SUMO WRESTLER HFrEF (heart failure with reduced ejection fraction) (HCC) Hypertension, essential BASIC METABOLIC PANEL W/ CALCIUM TOTAL Routine 08/23/2024 8:41 AM SUMO WRESTLER HFrEF (heart failure with reduced ejection fraction) (HCC) HEPATITIS C ANTIBODY Routine 09/05/2023 8:15 AM SUMO WRESTLER Encounter for hepatitis C screening test for low risk patient STOOL, OCCULT BLOOD IMMUNOASSAY (IFOB) Routine 06/05/2019 Screen for colon cancer from Last 3 Months or Most Recently Relevant to Health Maintenance Results * XR CHEST 2 VIEWS (09/19/2024 11:30 AM SUMO WRESTLER) Anatomical Region Laterality Modality Chest N/A Digital Radiogra phy 09/20/2024 4:00 AM SUMO WRESTLER Impressions 09/20/2024 4:03 AM SUMO WRESTLER IMPRESSION: No acute cardiopulmonary abnormality. Stable chronic interstitial changes. High-resolution CT of the chest may be helpful for further characterization. Narrative 09/20/2024 4:03 AM SUMO WRESTLER EXAM DESCRIPTION: XR CHEST 2 VIEWS REASON FOR STUDY: Pneumonia follow up from 2 months ago TECHNIQUE: Frontal and lateral radiographic views of the chest acquired. COMPARISON: Chest x-ray of August 19, 2024. FINDINGS: LUNGS/PLEURA: Lungs are hypoventilatory with scarring in the left lung base and bullous changes of the anterior left lung, unchanged from previous. There is mild elevation of the right hemidiaphragm, unchanged. There is mild diffuse interstitial prominence, unchanged as compared to previous studies. HEART/MEDIASTINUM: Cardiac silhouette is normal. Remaining mediastinal silhouettes are unremarkable. HARDWARE/LINES/TUBES: None. BONES: No acute findings. THIS IS AN ELECTRONICALLY VERIFIED FINAL REPORT 09/20/2024 4:00 AM - Electronically signed by Ilsa Josue M.D. SN: SN Report ID: [id number] Reading Location: [id number] Procedure Note Ilsa Josue MD - 09/20/2024 EXAM DESCRIPTION: XR CHEST 2 VIEWS REASON FOR STUDY: Pneumonia follow up from 2 months ago TECHNIQUE: Frontal and lateral radiographic views of the chest acquired. COMPARISON: Chest x-ray of August 19, 2024. FINDINGS: LUNGS/PLEURA: Lungs are hypoventilatory with scarring in the left lung base and bullous changes of the anterior left lung, unchanged from previous. There is mild elevation of the right hemidiaphragm, unchanged. There is mild diffuse interstitial prominence, unchanged as compared to previous studies. HEART/MEDIASTINUM: Cardiac silhouette is normal. Remaining mediastinal silhouettes are unremarkable. HARDWARE/LINES/TUBES: None. BONES: No acute findings. THIS IS AN ELECTRONICALLY VERIFIED FINAL REPORT 09/20/2024 4:00 AM - Electronically signed by Ilsa Josue M.D. SN: SN Report ID: [id number] Reading Location: [id number] IMPRESSION: No acute cardiopulmonary abnormality. Stable chronic interstitial changes. High-resolution CT of the chest may be helpful for further characterization. Rj Shepherd MD IMG DIAGNOSTIC ORDERABLES Final Result * HEMOGLOBIN A1C W/ ESTIMATED GLUCOSE (09/19/2024 8:23 AM SUMO WRESTLER) HGB-A1C 6.0 4.0 - 6.0 % 09/19/2024 3:38 PM SUMO WRESTLER [facility] Est Average Glucose 125.5 mg/dL 09/19/2024 3:38 PM SUMO WRESTLER [facility] Blood Venipuncture / Unknown 09/19/2024 8:23 AM SUMO WRESTLER 09/19/2024 3:26 PM SUMO WRESTLER Narrative [facility] - 09/19/2024 3:38 PM SUMO WRESTLER HEMOGLOBIN A1C: DIABETIC PATIENTS: WELL-CONTROLLED: 6.2 - 7.0 INTERMEDIATE WELL-CONTROLLED: 7.0 - 9.0 POORLY-CONTROLLED: >9.0 Specimens containing greater than 5% of Hemoglobin F may result in lower than expected % HbA1C results. us Rj Shepherd MD CHEMISTRY ORDERABLES Jazmín rangel Result [facility] [address] [place] [address] * (ABNORMAL) CBC WITH AUTO DIFFERENTIAL (09/19/2024 8:23 AM SUMO WRESTLER) WBC 6.44 4.00 - 12.00 10(3)/mcL 09/19/2024 1:12 PM [facility] RBC 5.62 4.40 - 5.80 10(6)/mcL 09/19/2024 1:12 PM [facility] HEMOGLOBIN (HGB) 16.9(H) 13.0 - 16.5 g/dL 09/19/2024 1:12 PM [facility] HEMATOCRIT (HCT) 48.9 38.0 - 50.0 % 09/19/2024 1:12 PM [facility] MCV 87.0 82.0 - 96.0 fL 09/19/2024 1:12 PM [facility] MCH 30.1 26.0 - 32.0 pg 09/19/2024 1:12 PM [facility] MCHC 34.6 31.0 - 36.0 g/dL 09/19/2024 1:12 PM [facility] PLATELET COUNT 124(L) 140 - 440 10(3)/mcL 09/19/2024 1:12 PM [facility] RDW 13.7 11.8 - 15.5 % 09/19/2024 1:12 PM [facility] MPV 11.6 8.0 - 12.6 fL 09/19/2024 1:12 PM SUMO WRESTLER [facility] NEUTROPHILS 63.0 40.0 - 68.0 % 09/19/2024 1:12 PM SUMO WRESTLER [facility] LYMPHOCYTES 28.1 19.0 - 49.0 % 09/19/2024 1:12 PM SUMO WRESTLER [facility] MONOCYTES 7.0 3.0 - 13.0 % 09/19/2024 1:12 PM SUMO WRESTLER [facility] EOSINOPHILS 1.6 0.0 - 8.0 % 09/19/2024 1:12 PM SUMO WRESTLER [facility] BASOPHILS 0.3 0.0 - 1.0 % 09/19/2024 1:12 PM [facility] ABSOLUTE NEUTROPHILS 4.06 1.40 - 5.30 10(3)/[facility] 09/19/2024 1:12 PM [facility] ABSOLUTE LYMPHOCYTES 1.81 0.90 - 3.30 10(3)/[facility] 09/19/2024 1:12 PM [facility] ABSOLUTE MONOCYTES 0.45 0.10 - 0.90 10(3)/[facility] 09/19/2024 1:12 PM SUMO WRESTLER [facility] ABSOLUTE EOSINOPHIL 0.10 0.00 - 0.50 10(3)/[facility] 09/19/2024 1:12 PM [facility] ABSOLUTE BASOPHILS 0.02 0.00 - 0.10 10(3)/[facility] 09/19/2024 1:12 PM [facility] NRBC PER 100 WBC 0 09/19/19 1:12 PM [facility] Blood Venipuncture / Unknown 09/19/2024 8:23 AM SUMO WRESTLER 09/19/2024 8:23 AM SUMO WRESTLER us Rj Shepherd MD HEMATOLOGY ORDERABLES Fin al Result [facility] [address] [place] [address] * (ABNORMAL) CMP (COMPREHENSIVE METABOLIC PANEL) (09/19/2024 8:23 AM SUMO WRESTLER) SODIUM 136 136 - 145 mmol/L 09/19/2024 1:35 PM [facility] POTASSIUM 4.8 3.5 - 5.1 mmol/L 09/19/2024 1:35 PM [facility] CHLORIDE 105 98 - 107 mmol/L 09/19/2024 1:35 PM [facility] CO2, VENOUS 24 22 - 30 mmol/L 09/19/2024 1:35 PM [facility] ANION GAP 11.8 <18.0 mmol/L 09/19/2024 1:35 PM [facility] GLUCOSE 140(H) 70 - 99 mg/dL 09/19/2024 1:35 PM [facility] BUN 43(H) 8 - 26 mg/dL 09/19/2024 1:35 PM [facility] CREATININE, BLOOD 1.43(H) 0.70 - 1.30 mg/dL 09/19/2024 1:35 PM [facility] BUN/CREATININE RATIO 30(H) 12 - 20 ratio 09/19/2024 1:35 PM [facility] TOTAL PROTEIN 7.4 6.0 - 8.0 g/dL 09/19/2024 1:35 PM [facility] ALBUMIN 4.3 3.5 - 5.0 g/dL 09/19/2024 1:35 PM [facility] A/G RATIO 1.4 1.0 - 2.2 09/19/2024 1:35 PM [facility] CALCIUM 9.8 8.7 - 10.5 mg/dL 09/19/2024 1:35 PM [facility] T BILI 0.7 0.2 - 1.2 mg/dL 09/19/2024 1:35 PM [facility] SGOT (AST) 32 6 - 42 U/L 09/19/2024 1:35 PM [facility] SGPT (ALT) 43 6 - 55 U/L 09/19/2024 1:35 PM SUMO WRESTLER [facility] ALKALINE PHOSPHATASE 79 40 - 150 U/L 09/19/2024 1:35 PM SUMO WRESTLER [facility] IS THE PATIENT REQUIRED TO BE FASTING? No 09/19/2024 1:35 PM SUMO WRESTLER [facility] GFR, ESTIMATED 50(L) >=60 09/19/2024 1:35 PM SUMO WRESTLER [facility] Comment: Creatinine Clearance is the preferred criteria for selecting drug dose adjustments in renally impaired patients. The GFR is provided as additional pertinent clinical information. GFR is reported in mL/min/1.73 sq m. Calculation based on the Chronic Kidney Disease Epidemiology Collaboration (CKD- EPI) equation refit without adjustment for race. GFR, EST. 58(L) >=60 025 1:35 PM SUMO WRESTLER [facility] GFR, EST. NONAFRICAN 48(L) >=60 09/19/2024 1:35 PM SUMO WRESTLER [facility] Blood Venipuncture / Unknown 09/19/2024 8:23 AM SUMO WRESTLER 09/19/2024 8:23 AM SUMO WRESTLER us Rj Shepherd MD CHEMISTRY ORDERABLES Jazmín rangel Result [facility] [address] [place] [address] * (ABNORMAL) BASIC METABOLIC PANEL W/ CALCIUM TOTAL (08/23/2024 8:41 AM SUMO WRESTLER) SODIUM 141 136 - 145 mmol/L 08/23/2024 1:08 PM SUMO WRESTLER [facility] POTASSIUM 4.9 3.5 - 5.1 mmol/L 08/23/2024 1:08 PM SUMO WRESTLER [facility] CHLORIDE 108(H) 98 - 107 mmol/L 08/23/2024 1:08 PM [facility] CO2, VENOUS 23 22 - 30 mmol/L 08/23/2024 1:08 PM SUMO WRESTLER [facility] ANION GAP 14.9 <18.0 mmol/L 08/23/2024 1:08 PM SUMO WRESTLER [facility] GLUCOSE 116(H) 70 - 99 mg/dL 08/23/2024 1:08 PM [facility] BUN 35(H) 8 - 26 mg/dL 08/23/2024 1:08 PM [facility] CREATININE, BLOOD 1.40(H) 0.70 - 1.30 mg/dL 08/23/2024 1:08 PM SUMO WRESTLER [facility] BUN/CREATININE RATIO 25(H) 12 - 20 ratio 08/23/2024 1:08 PM [facility] CALCIUM 10.1 8.7 - 10.5 mg/dL 08/23/2024 1:08 PM [facility] IS THE PATIENT REQUIRED TO BE FASTING? No 08/23/2024 1:08 PM [facility] GFR, ESTIMATED 52(L) >=60 08/23/2024 1:08 PM [facility] Comment: Creatinine Clearance is the preferred criteria for selecting drug dose adjustments in renally impaired patients. The GFR is provided as additional pertinent clinical information. GFR is reported in mL/min/1.73 sq m. Calculation based on the Chronic Kidney Disease Epidemiology Collaboration (CKD- EPI) equation refit without adjustment for race. GFR, EST. 60 >=60 024 1:08 PM [facility] GFR, EST. NONAFRICAN 49(L) >=60 08/23/2024 1:08 PM [facility] Blood Venipuncture / Unknown 08/23/2024 8:41 AM SUMO WRESTLER 08/23/2024 8:41 AM SUMO WRESTLER us Rj Shepherd MD CHEMISTRY ORDERABLES Jazmín l Result [facility] [address] [place] [address] * HEPATITIS C ANTIBODY (09/05/2023 8:15 AM SUMO WRESTLER) hepatitis C antibody 0.10 <1 S/CO [facility] ARCH [id number] B 09/05/2023 9:50 PM SUMO WRESTLER [facility] Comment: Signal/Cutoff ratio < 0.79 is Nondetected Signal/Cutoff ratio 0.80-0.99 is Grayzone Signal/Cutoff ratio > 0.99 is Detected Supplemental assays are recommended if signal/cutoff ratio is >/=1.00. Signal/cutoff ratio result >/= 5.00 is 97% predictive of positivity for recombinant immunoblot assay (RIBA) and will be reported to the [place] Department of Public Health as required. Blood Venipuncture / Unknown 09/05/2023 8:15 AM SUMO WRESTLER 09/05/2023 8:15 AM SUMO WRESTLER Rj Shepherd MD CHEMISTRY ORDERABLES Jazmín l Result [facility] [address] [place] [address], * STOOL, OCCULT BLOOD IMMUNOASSAY (IFOB) (06/05/2019) Specimen of unknown material (specimen) STOOL SPECIMEN / Unknown Rj Shepherd MD [facility] Final Result from Last 3 Months or Most Recently Relevant to Health Maintenance Insurance [facility] Care Teams Director Aeronautics Commission Relationship Specialty Start Date End Date Rj Shepherd MD [address] [place] [address] PCP - General Internal Medicine 09/30/15 Forrest Meyer MD [address] [facility] [address] [place] [address] Consulting Physician Urological Surgery 05/04/22 Vivek Chew APRN, CARRIER DRIVER [address] [place] [address] Nurse Practitioner Advanced Practice Nurse 03/31/22 Jeffery Iverson MD [address] [facility] [address] [place], [place] [id number] Consulting Physician Cardiology 08/05/24
--- OUTSIDE RECORDS SUMMARY | 2024-11-19 01:10 | XMS_ITS | Encounter Summary ---
Author Organization [facility] Address [address] [place] [address] Phone Care Team Providers Care Live In Housekeeper Nanny Name Role Phone Rj Shepherd MD Primary Care Provider [phone] Forrest Meyer MD Unavailable Vivek Chew APRN, CNP Unavailable [phone] Jeffery Iverson MD Unavailable Reason for Visit * Reason Comments Medication Refill Encounter Details Date Type Department Care Team (Late st Contact Info) Description 03/09/2023 Refill [facility] - [place] [address] [place] [address] Rj Shepherd MD [address] [place] [address] Medication Refill Social History Tobacco Use Types Packs/Day Years Used Date Smoking Tobacco: Former Smokeless Tobacco: Never Alcohol Use Standard Drinks/Week Comments Yes 0 (1 standard drink = 0.6 oz pur e alcohol) PHQ-2 Answer Date Recorded Total Score - Questions 1-9 0 11/2021 Sex and Gender Information Value Date Recorded Sex Assigned at Not on file Legal Sex Male 10:49 PM CDT Gender Identity Not on file Sexual Orientation Not on file documented as of this encounter Miscellaneous Notes * Telephone Encounter - Doreen Avila RN - 03/09/2023 8:49 AM CDT amLODIPine (NORVASC) 10 MG Tablet 90 Tablet 1 12/05/2022 Refill too soon documented in this encounter Plan of Treatment Upcoming Encounters Date Type Department Care Team (Late st Contact Info) Description 09/22/2025 10:30 AM SOD FARMER Office Visit [facility] - [facility] - [place] [address] [place] [address] Rj Shepherd MD [address] [place] [address] documented as of this encounter Visit Diagnoses Not on filedocumented in this encounter Additional Health Concerns Assessment Noted Time PHQ-9 Depression Total Score: 0 10/04/19 20 9:00 AM SOD FARMER documented as of this encounter Care Teams Live In Housekeeper Nanny Relationship Specialty Start Date End Date Rj Shepherd MD [address] [place] [address] PCP - General Internal Medicine 09/30/15 Forrest Meyer MD [address] [address] Consulting Physician Urological Surgery 05/04/22 Vivek Chew APRN, POST OFFICE MANAGER [address] [place] [address] Nurse Practitioner Advanced Practice Nurse 03/31/22 Jeffery Iverson MD [address] [facility] [address] [place] [address] Consulting Physician Cardiology 08/05/24 documented as of this encounter
--- OUTSIDE RECORDS SUMMARY | 2024-11-19 01:10 | XMS_ITS | Encounter Summary ---
Author Organization [facility] Address [address] [place] [address] Phone Care Team Providers Care Housing Manager Name Role Phone Rj Shepherd MD Primary Care Provider [phone] Forrest Meyer MD Unavailable Vivek Chew APRN, CNP Unavailable [phone] Jeffery Iverson MD Unavailable Encounter Details Date Type Department Care Team (Late st Contact Info) Description 09/23/2024 Results Follow-Up [facility] - Primary Care - [place] [address] [place] [address] Rj Shepherd MD [address] [place] [address] Social History Tobacco Use Types Packs/Day Years Used Date Smoking Tobacco: Former Cigarettes - 1994 Smokeless Tobacco: Never Alcohol Use [...] encounter Miscellaneous Notes * Telephone Encounter - Kellen Miguel RN - 09/23/2024 9:51 AM CST Horacio notified, verbalized understanding. MIXER OPERATOR documented in this encounter Plan of Treatment Upcoming Encounters Date Type Department Care Team (Late st Contact Info) Description 09/22/2025 10:30 AM ROTO MIXER OPERATOR Office Visit [facility] - [place] [address] [place] [address] Rj Shepherd MD [address] [place] [address] documented as of this encounter Visit Diagnoses Not on filedocumented in this encounter Additional Health Concerns Assessment Noted Time PHQ-9 Depression Total Score: 0 09/19/19 10:59 AM ROTO MIXER OPERATOR documented as of this encounter Care Teams Housing Manager Relationship Specialty Start Date End Date Rj Shepherd MD [address] [place] [address] PCP - General Internal Medicine 09/30/15 Forrest Meyer MD [address] [address] Consulting Physician Urological Surgery 05/04/22 Vivek Chew, MISSION ANALYST, INFORMATICS NURSE SPECIALIST [address] [place] [address] Nurse Practitioner Advanced Practice Nurse 03/31/22 Jeffery Iverson MD [address] [facility] [address] [place], [place] [id number] Consulting Physician Cardiology 08/05/24 documented as of this encounter
[2024-11-19 07:44] LABS: Basophils Percent Auto 0.2 % (0.2-1.2); Eosinophils Absolute Auto 0.1 K/mm3 (0-0.3); Eosinophils Percent Auto 2.2 % (0-4.4); Hematocrit 46.3 % (42.0-52.0); Hemoglobin 15.8 g/dL (14.0-18.0); Immature Granulocyte Absolute 0.02 K/mm3 (0.00-0.031); Immature Granulocyte Percent A 0.4 % (0-0.5); Immature Platelet Fraction Pct 3.7 % (0.9-11.2); Lymphocytes Percent Auto 21.6 % (18.3-44.2); Mean Corpuscular HGB Conc 34.1 g/dl (32-36); Mean Corpuscular Hemoglobin 30.3 pg (26-34); Mean Corpuscular Volume 88.9 fl (80-100); Mean Platelet Volume 10.6 fl (7.4-10.4); Monocytes Absolute Auto 0.3 K/mm3 (0.1-0.6); Monocytes Percent Auto 6.3 % (2.6-8.5); Neutrophils Absolute Auto 3.2 K/mm3 (1.3-6.7); Neutrophils Percent Auto 69.3 % (45.5-73.1); Platelet Count Result 102 k/mm3 (150-375); Red Blood Count 5.21 M/mm3 (4.6-6.20); Red Cell Distribution Width 13.7 % (11.5-14.5); White Blood Count 4.6 K/mm3 (4.5-10.0)
[2024-11-19 07:55] LABS: Anion Gap 10 mmol/L (4-12); Blood Urea Nitrogen 35 mg/dL (9-20); Calcium 9.6 mg/dL (8.4-10.2); Carbon Dioxide 25 mmol/L (22-30); Chloride 105 mmol/L (98-107); Estimated CRCL calculation 44 ml/min; Estimated Glomerular Filt Rate 49; Glucose 136 mg/dL (65-110); Potassium 4.5 mmol/L (3.4-5.0); Sodium 140 mmol/L (137-145)
--- NOTE | 2024-11-19 09:14 | P.SEDATION_ITS ---
Moderate Sedation Note-Pt Data Patient Data Diagnosis: Heart failure with reduced LVEF Present Complaint: Heart failure with reduced LVEF Procedure to be performed/Plan: Coronary angiography, left heart cath, +/- PCI Allergies Allergy/AdvReac Type Severity Reaction Status Date / Time No Known Drug Allergies Allergy Unknown Unknown Verified 11/19/24 07:25 Home Medications ?Medication ?Instructions ?Recorded ?Confirmed ?Type amlodipine 10 mg tablet 10 mg PO DAILY 07/23/24 11/18/24 History hydrochlorothiazide 12.5 mg tablet 12.5 mg PO DAILY 07/23/24 11/18/24 History lisinopril 40 mg tablet 40 mg PO DAILY 07/23/24 11/18/24 History amoxicillin 875 mg-potassium 1 tablet PO Q12H #6 tabs 07/30/24 11/18/24 Rx clavulanate 125 mg tablet apixaban 5 mg tablet (Eliquis) 5 mg PO Q12HR #30 tabs 07/30/24 11/18/24 Rx doxycycline hyclate 100 mg tablet 100 mg PO Q12HR #6 tabs 07/30/24 11/19/24 Rx empagliflozin 10 mg tablet 10 mg PO DAILY #30 tabs 07/30/24 11/19/24 Rx (Jardiance) furosemide 40 mg tablet 40 mg PO DAILY #30 tabs 07/30/24 11/18/24 Rx sacubitril 24 mg-valsartan 26 mg 1 tab PO Q12HR #30 tabs 07/30/24 11/18/24 Rx tablet (Entresto) spironolactone 25 mg tablet 25 mg PO QAM #30 tabs 07/30/24 11/19/24 Rx metoprolol succinate 50 mg 200 mg PO BID 11/18/24 11/19/24 History tablet,extended release 24 hr sacubitril 49 mg-valsartan 51 mg 1 tablet PO BID 11/18/24 11/19/24 History tablet (Entresto) Sedation/Anesthesia: No previous sedation/anesthesia problems (including family history). [facility] Past Medical History Medical History Acute heart failure Pulmonary edema Atrial fibrillation with RVR Hypertension Surgical History Surgical History No history of previous surgery Family History Family History Other Unknown family medical history Social History Social History Smoking packs per day: 1 Smoking cigarettes per day: 20.0 Years smoked: 30 Smoking pack-years: 30.00 Smoking status: Former smoker Alcohol intake: current Drinks per week: 7 Substance use type: does not use Do You Feel Safe in your Home?: Yes Lack of Transportation: No Lack of Food: Never True Current Housing: I Have Housing Concerned About Future Housing: No Difficulty Paying Gas/Electric Bills: No Difficulty Paying for Meds: No Currently Unemployed: No Education: High School Diploma/GED Difficulty w/ Childcare or Family Care: No Living arrangements: with family Additional living arrangements comments: - [place] Spiritual care concerns: No Mod Sed Physical Exam Physical Exam Pre Procedural Exam: Normal: Appearance, Lungs, Heart Rate, Heart Rhythm, Neuro Exam, Extremities and Skin Hours since solid foods: 12 Hours since liquid intake: 8 Mallampati Classification: class III Internal Medicine - PN: Obj Da Vital Signs Vital Signs: Vital Signs - 24 hr 11/19/24 07:27 Temperature 36.3 C L Pulse Rate 56 L Respiratory Rate 16 Blood Pressure 136/73 Pulse Oximetry 98 Oxygen Delivery Room Air Labs 11/19/24 07:31 11/19/24 07:31 Labs: Laboratory Results - last 24 hr 11/19/24 07:31 WBC 4.6 RBC 5.21 Hgb 15.8 Hct 46.3 MCV 88.9 MCH 30.3 MCHC 34.1 RDW 13.7 Plt Count 102 L MPV 10.6 H Immature Gran % (Auto) 0.4 Neut % (Auto) 69.3 Lymph % (Auto) 21.6 Bandera % (Auto) 6.3 Eos % (Auto) 2.2 Baso % (Auto) 0.2 Lymph # (Auto) 1.00 Bandera # (Auto) 0.3 Eos # (Auto) 0.1 Baso # (Auto) 0.0 Abs Immat Gran (auto) 0.02 Absolute Neuts (auto) 3.2 Absolute Nucleated RBC 0.000 Nucleated RBC % 0.0 % Immature Plt Fraction 3.7 Sodium 140 Potassium 4.5 Chloride 105 Carbon Dioxide 25 Anion Gap 10 BUN 35 H Creatinine 1.41 H Estim Creat Clear Calc 44 Estimated GFR 49 L Glucose 136 H Calcium 9.6 ASA Classification/Sedation ASA Classification/Sedation ASA Class: III Emergent: No Risks: Risks, benefits and alternatives explained and patient/family accepted plan for sedation. Patient re-evaluated immediately prior to sedation.
--- NOTE | 2024-11-19 09:14 | WPDHPUPDATE1 ---
History and Physical Update Update Date/Time: 11/19/24 09:14 History and Physical has been reviewed, including an updated exam of the patient. There are NO changes in the patient's condition. Risks, benefits, and alternatives have been discussed and questions answered. Patient agrees to proceed with procedure.
--- NOTE | 2024-11-19 09:42 | WPDCARDPROC ---
Cardiac Cath Procedure Note Date of procedure:: 11/19/24 Performing physician:: CATHETERIZATION LABORATORY REPORT Procedure Date: 11/19/2024 Coffee Brewer: Jeffery Iverson M.D., [facility]? Referring Physician: Jeffery Iverson M.D. Anesthesia: Versed and Fentanyl were ordered and given in my presence at 09:21, procedure ended at 09:36. Supervision of nurse monitored moderate sedation with Versed and Fentanyl was provided for 15 minutes. Total of Versed 1mg and Fentanyl 50mcg were administered by the Call Or Contact Centre Coach RN Tae Lopez. Pre-op Diagnosis: Coronary artery disease Post-op Diagnosis: 1. Multivessel coronary artery disease involving the distal left main, LAD/diagonal, LCX, RPDA. 2. Left ventricular end-diastolic pressure of 19mmHg Procedure(s): 1. Moderate sedation 2. Ultrasound-guided access of the right radial artery 3. Coronary angiography 4. Left heart cath Access Site: Right radial artery Brief History and Clinical Indications: Patient is a 79 year old male who is referred for [facility] for HFmrEF. All risks, benefits and alternatives to left heart catheterization with or without percutaneous coronary intervention was discussed at length with the patient. Risk of complications including but not limited to bleeding, infection, arrhythmia, stroke, worsening kidney function, blood loss, groin hematoma, limb loss, emergency coronary artery bypass grafting, and even were discussed with the patient and all questions were answered. The patient understood and wished to proceed. Time out called, patient name, date of , medical record number, allergies, procedure performed, identify Coffee Brewer, patient and staff member concurred with accurate data, procedure carried on. Findings: LEFT HEART CATHETERIZATION FINDINGS: 1. Left main: The distal left main has a 70% stenosis. 2. Left anterior descending: Heavy calcifications seen in the proximal-mid LAD. The proximal LAD has an 80% stenosis just proximal to the first septal branch. The mid portion of the LAD has a 99% stenosis. There is ARTURO II flow in the LAD. The first diagonal branch is a small caliber vessel with 90-99% stenosis in the proximal portion. 3. Left circumflex: The ostium of the LCX has an 80% stenosis. The proximal portion has an 80% stenosis. 4. Right coronary artery: The RCA is the dominant vessel. The RCA has diffuse heavy calcifications. The RCA has diffuse mild disease. The RPDA has a focal 70% stenosis in the mid portion. 5. Left ventricle: A. End-diastolic pressure 17 mmHg. B. LV gram deferred. C. No significant gradient across aortic valve on catheter pullback. Description of Procedure: Informed consent signed and placed in the chart. Patient transferred to lab manager room. Prepped and draped in usual sterile fashion. 2% lidocaine injected subcutaneously in right wrist area. 22-gauge venipuncture catheter used to access the right radial artery under ultrasound guidance. 6-FR slender sheath placed in right radial artery. Nitroglycerine and Verapamil were given intraarterial through the sheath. Versacore wire advanced under fluoroscopy 5F Tig 4 diagnostic catheter engaged Left Main Coronary Artery. 5F Tig 4 diagnostic catheter engaged Right Coronary Artery Multiple orthogonal angiogram obtained and reviewed 5F Pigtail diagnostic catheter crossed aortic valve to obtain LVEDP, LV angiogram deferred. Hemostasis was achieved by application of TR band. Disposition: Home Plan: The patient will be monitored in the recovery area. Will refer to CT Surgery for consideration of surgical revascularization. Continue aggressive medical therapy and risk factor modification. ? Jeffery Iverson M.D. Interventional Cardiology
[2024-11-19 11:58] LABS: Cholesterol 173 mg/dL (0-200); HDL Direct 41 mg/dL; Triglycerides 69 mg/dL (<150)
[2024-11-19 12:09] LABS: LDL Cholesterol Direct 110 mg/dL
== END 2024-11-19 13:25 | disposition home or self-care (01) ==
PROVIDERS: PCP Internal Medicine; Visit Provider Internal Medicine
PROC: 4A023N7 Measurement of Cardiac Sampling and Pressure, Left Heart, Percutaneous Approach (ICD-10-PCS; CPT 93452; principal; 2024-11-19 08:30)
DX: I25.10 Atherosclerotic heart disease of native coronary artery without angina pectoris (principal); I11.0 Hypertensive heart disease with heart failure; I50.9 Heart failure, unspecified; I48.20 Chronic atrial fibrillation, unspecified; Z79.01 Long term (current) use of anticoagulants; Z79.84 Long term (current) use of oral hypoglycemic drugs; Z87.891 Personal history of nicotine dependence
CPT/HCPCS: 36415; 80048; 80061; 85025; 85055; 93458; C1769; C1887; C1894; J1644; J2003; J2250; J2305; J3010; J7040

== ENCOUNTER 2025-01-18 14:00 | Emergency (ER) | payer MEDICARE, SELFPAY ==
--- OUTSIDE RECORDS SUMMARY | 2025-01-18 14:02 | XMS_ITS | Encounter Summary ---
Author Organization [facility] Address [address] [place] [address] Phone Care Team Providers Care Skin Care Instructor Name Role Phone Rj Shepherd MD Primary Care Provider [phone] Forrest Meyer MD Unavailable Vivek Chew APRN, CNP Unavailable [phone] Jeffery Iverson MD Unavailable Reason for Visit * Reason Comments Medication Refill Encounter Details Date Type Department Care Team (Late st Contact Info) Description 06/10/2021 Refill [facility] - Primary Care - [place] [address] [place] [address] Rj Shepherd MD [address] [place] [address] Medication Refill Social History Tobacco [...] Care Team (Late st Contact Info) Description 01/21/2025 1:00 AM CDT Home Care Visit [address] [address] Natalie Dobbins, RN [place] 01/22/2025 2:00 PM CDT Home Care Visit [address] [address] Maggy Miranda, COMMUNITY SERVICE DIRECTOR 01/23/2025 1:00 AM CDT Home Care Visit [address] [address] Natalie Dobbins, [place] 01/24/2025 2:30 PM CDT Home Care Visit [address] [address] Maggy Miranda, COMMUNITY SERVICE DIRECTOR 01/27/2025 2:30 PM CDT Home Care Visit [address] [address] Maggy Miranda, COMMUNITY SERVICE DIRECTOR 01/28/2025 1:00 AM CDT Home Care Visit [address] [address] Natalie Dobbins, RN [place] 01/29/2025 1:00 AM CDT Home Care Visit [address] [address] Miriam Jackson PT [place] 02/04/2025 1:00 AM CDT Home Care Visit [address] [address] Natalie Dobbins, [place] 09/22/2025 10:30 AM PURE PAK MACHINE OPERATOR Office Visit [facility] - Primary Care - [place] [address] [place] [address] Rj Shepherd MD [address] [place] [address] documented as of this encounter Visit Diagnoses Not on filedocumented in this encounter Additional Health Concerns Assessment Noted Time PHQ-9 Depression Total Score: 0 10/04/19 20 9:00 AM PURE PAK MACHINE OPERATOR documented as of this encounter Care Teams Skin Care Instructor Relationship Specialty Start Date End Date Rj Shepherd MD [address] [place] [address] PCP - General Internal Medicine 09/30/15 Forrest Meyer MD #2 [facility], [address] [address] Consulting Physician Urological Surgery 05/04/22 Vivek Chew APRN, ACID CONCENTRATOR [address] [place] [address] Nurse Practitioner Urology 03/31/22 Jeffery Iverson MD [address] [facility] [address] [place] [address] Consulting Physician Cardiology 08/05/24 documented as of this encounter
--- OUTSIDE RECORDS SUMMARY | 2025-01-18 14:02 | XMS_ITS | Encounter Summary ---
Author Organization [facility] Address [address] [place] [address] Phone Care Team Providers Care Data Support Analyst Name Role Phone jR Shepherd MD Primary Care Provider [phone] Forrest Meyer MD Unavailable Vivek Chew APRN, CNP Unavailable [phone] Jeffery Iverson MD Unavailable Reason for Visit * Reason Comments Medication Refill Encounter Details Date Type Department Care Team (Late st Contact Info) Description 10/05/2023 Refill [facility] Primary [facility] - [place] [address] [place] [address] Rj Shepherd MD [address] [place] [address] Medication Refill Social History Tobacco [...] 8:57 AM CST Refill requested too soon. TTING MACHINE OPERATOR HELPER documented in this encounter Plan of Treatment Upcoming Encounters Date Type Department Care Team (Late st Contact Info) Description 01/21/2025 1:00 AM CDT Home Care Visit [address] [address] Natalie Dobbins, RN [place] 01/22/2025 2:00 PM CDT Home Care Visit [address] [address] Maggy Miranda, SECTION WEAVER 01/23/2025 1:00 AM CDT Home Care Visit [address] [address] Natalie Dobbins, RN [place] 01/24/2025 2:30 PM CDT Home Care Visit [address] [address] Maggy Miranda, SECTION WEAVER 01/27/2025 2:30 PM CDT Home Care Visit [address] [address] Maggy Miranda, SECTION WEAVER 01/28/2025 1:00 AM CDT Home Care Visit [address] [address] Natalie Dobbins, RN [place] 01/29/2025 1:00 AM CDT Home Care Visit [address] [address] Miriam Jackson PT [place] 02/04/2025 1:00 AM CDT Home Care Visit [address] [address] Natalie Dobbins, [place] 09/22/2025 10:30 AM SPLITTING MACHINE OPERATOR HELPER Office Visit [facility] - Primary Care - [address] [place] [id number] Rj Shepherd MD [address] [place] [address] documented as of this encounter Visit Diagnoses Not on filedocumented in this encounter Additional Health Concerns Assessment Noted Time PHQ-9 Depression Total Score: 0 09/05/19 24 7:56 AM SPLITTING MACHINE OPERATOR HELPER documented as of this encounter Care Teams Data Support Analyst Relationship Specialty Start Date End Date Rj Shepherd MD [address] [place] [address] PCP - General Internal Medicine 09/30/15 Forrest Meyer MD [address]2 [facility], [address] [address] Consulting Physician Urological Surgery 05/04/22 Vivek Chew APRN, CONSULTANT RN #2 [place] [address] Nurse Practitioner Urology 03/31/22 Jeffery Iverson MD [address] [facility] [address] [place], [place] [id number] Consulting Physician Cardiology 08/05/24 documented as of this encounter
--- OUTSIDE RECORDS SUMMARY | 2025-01-18 14:02 | XMS_ITS | Encounter Summary ---
Author Organization [facility] Address [address] [place] [address] Phone Care Team Providers Care Care Navigator Name Role Phone Rj Shepherd MD Primary Care Provider [phone] Forrest Meyer MD Unavailable Vivek Chew APRN, CNP Unavailable [phone] Jeffery Iverson MD Unavailable Reason for Visit * Reason Comments Medication Refill Encounter Details Date Type Department Care Team (Late st Contact Info) Description 10/29/2023 Refill [facility] Primary Care - [place] [address] [place] [address] Rj Shepherd MD [address] [place] [address] Medication Refill Social History Tobacco [...] AM CST Medication[facility]) [facility] Med[facility] Refill Standing Order for Pediatricand [...] Dept 09/05/23 Office Visit Rj Shepherd MD [facility] Showing recent visits within past 365 days and meeting all other requirements Future Appointments No visits were found meeting these conditions. Showing future appointments within next 90 days and meeting all other requirements Passed - GFR on record in past 12 months GFR, EST. NONAFRICAN Date Value Ref Range Status 09/05/2023 >60 >=60 Final CARRIER documented in this encounter Plan of Treatment Upcoming Encounters Date Type Department Care Team (Late st Contact Info) Description 01/21/2025 1:00 AM CDT Home Care Visit [address] [address] Natalie Dobbins, RN [place] 01/22/2025 2:00 PM CDT Home Care Visit [address] [address] Maggy Miranda PTA 01/23/2025 1:00 AM CDT Home Care Visit [address] [address] Natalie Dobbins, [place] 01/24/2025 2:30 PM CDT Home Care Visit [address] [address] Maggy Miranda, ADVERTISING INTERNSHIP 01/27/2025 2:30 PM CDT Home Care Visit [address] [address] Maggy Miranda, ADVERTISING INTERNSHIP 01/28/2025 1:00 AM CDT Home Care Visit [address] [address] Natalie Dobbins, [place] 01/29/2025 1:00 AM CDT Home Care Visit [address] [address] Miriam Jackson PT [place] 02/04/2025 1:00 AM CDT Home Care Visit [address] [address] Natalie Dobbins, [place] 09/22/2025 10:30 AM TOP CARRIER Office Visit [facility] - Primary Care - [place] [address] [place] [address] Rj Shepherd MD [address] [place] [address] documented as of this encounter Visit Diagnoses Not on filedocumented in this encounter Additional Health Concerns Assessment Noted Time PHQ-9 Depression Total Score: 0 09/05/19 24 7:56 AM TOP CARRIER documented as of this encounter Care Teams Care Navigator Relationship Specialty Start Date End Date Rj Shepherd MD [address] [place] [address] PCP - General Internal Medicine 09/30/15 Forrest Meyer MD #[address] [address] Consulting Physician Urological Surgery 05/04/22 Vivek Chew APRN, HAT LINER [address] [place] [address] Nurse Practitioner Urology 03/31/22 Jeffery Iverson MD [address] [facility] [address] [place] [address] Consulting Physician Cardiology 08/05/24 documented as of this encounter
--- OUTSIDE RECORDS SUMMARY | 2025-01-18 14:02 | XMS_ITS | Clinical Summary ---
Author Organization [facility] Address [address] [place] [address] Phone Care Team Providers Care Incubator Machine Operator Name Role Phone Rj Shepherd MD Primary Care Provider [phone] Forrest Meyer MD Unavailable Vivek Chew APRN, PLUG OVERWRAP MACHINE TENDER Unavailable [phone] Jeffery Iverson MD Unavailable Allergies Active Allergy Reactions Criticality Noted Date Comments Enalaprilat Unknown Medications Eliquis 5 MG Tablet Take 5 mg by mouth 2 times daily. 07/30/20 24 Active Jardiance 10 MG Tablet Take 10 mg by mouth daily. 07/30/20 24 Active spironolactone (ALDACTONE) 25 MG Tablet Take 25 mg by mouth every morning. 07/30/20 24 Active amiodarone (CORDARONE) 200 MG Tablet Take 200 mg by mouth. 01/09/20 25 025 Active aspirin EC 81 MG Tablet Delayed Response Take 81 mg by mouth. Active atorvastatin (LIPITOR) 10 MG Tablet Take 10 mg by mouth daily. 01/09/20 25 025 Active clopidogrel (PLAVIX) 75 MG Tablet Take 75 mg by mouth daily. 01/10/20 25 025 Active oxyCODONE 10 MG Tablet Take 5 mg by mouth. 01/09/20 25 Active polyethylene glycol (GLYCOLAX) 17 GM/SCOOP Powder Take 17 g by mouth. 01/09/20 25 Active amiodarone (CORDARONE) 200 MG Tablet Take 200 mg by mouth twice a day. Active clopidogrel (PLAVIX) 75 MG Tablet Take 75 mg by mouth daily. Active methocarbamol (ROBAXIN) 500 MG Tablet Take 500 mg by mouth 3 times daily. for 7 days 01/12/20 25 025 Active atorvastatin (LIPITOR) 10 MG Tablet Take 10 mg by mouth daily. Active ASPIRIN 81 PO Take 1 Tablet by mouth daily. Active acetaminophen (Tylenol) 325 MG Tablet Take 650 mg by mouth every 4 hours as needed for Mild or more severe pain. Active polyethylene glycol (MiraLax Mix-In Pedro) 17 g Pack Take 17 g by mouth daily as needed for Constipation - 1st line. Active Sennosides (Senna) 8.6 MG Capsule Take 1 Capsule by mouth daily. Active oxyCODONE 10 MG Tablet Take 5 mg by mouth every 4 hours as needed for Severe pain. Active furosemide (LASIX) 40 MG Tablet Take 40 mg by mouth daily. 07/30/20 24 025 Discontinu ed(Discont inued by another clinician) metoprolol succinate (TOPROL-XL) 200 MG TABLET SR 24 HR Take 200 mg by mouth. 08/09/20 24 025 Discontinu ed(Discont inued by another clinician) sacubitril-oliver sartan (ENTRESTO) 49-51 MG Tablet Take 1 Tablet by mouth 2 times daily. 08/09/20 24 025 Discontinu ed(Discont inued by another clinician) senna-docusate (SENOKOT S) 8.6-50 MG Tablet Take 1 Tablet by mouth daily. 01/09/20 Active Problems Problem Noted Date Diagnosed Date S/P CABG x 3 01/15/2025 Mixed hyperlipidemia 12/04/2024 Arteriosclerosis of coronary artery 12/04/2024 Chronic anticoagulation 08/09/2024 Paroxysmal atrial fibrillation 08/05/2024 HFrEF (heart failure with reduced ejection fract ion) 08/05/2024 Panlobular emphysema 08/05/2024 Hypertension, essential Arthritis Thrombocytopenia Encounters Date Type Department Care Team Description 01/16/2025 1:30 PM CDT Home Care Visit [facility] [address] [place] [address] Maggy Miranda PTA PT - HOME VISIT 01/16/2025 1:00 PM CDT Home Care Visit [address] [address] Ermelinda Rizvi LPN SN - HOME VISIT 01/15/2025 1:50 PM CDT Lab [facility] - [address] [id number] Lab, [address] S/P CABG x 3; Panlobular emphysema (HCC); Urge urinary incontinence Discharge Disposition: Discharged to home or Selfcare 01/15/2025 11:15 AM CDT Office Visit [facility] - [place] [address] [place] [phone] Rj Shepherd MD Arteriosclerosis of coronary artery (Primary Dx); S/P CABG x 3; Panlobular emphysema (HCC); HFrEF (heart failure with reduced ejection fraction) (HCC); Urge urinary incontinence Discharge Disposition: Discharged to home or Selfcare 01/15/2025 Results Follow-Up [facility] - [address] [place] [phone] Rj Shepherd MD URINALYSIS REFLEX IF INDICATED BY ABNORMAL RESULTS, CBC WITH AUTO DIFFERENTIAL 01/15/2025 Travel 01/14/2025 12:30 PM CDT Home Care Visit [address] [address] Natalie Dobbins, RN SN - HOME VISIT 01/14/2025 10:00 AM CDT Home Care Visit [address] [address] [place] Block OT OT - INITIAL EVALUATION 01/13/2025 9:30 AM CDT Home Care Visit [address] [address] Miriam Jackson, PT PT - INITIAL EVALUATION 01/12/2025 [facility] [address] [place] [address] 01/10/2025 1:30 PM CD[facility] [address] [place] [address] Natalie Dobbins RN SN - OASIS START OF CARE from Last 3 Months Immunizations Immunization Administration Dates Next Due Covid-19 Vaccine, Vector-nr, Rs-ad26, Pf, 0.5 Ml (SENTHIL/J&J) 11/05/2020 Influenza Vaccine 09/10/2012 Influenza Vaccine, Quadrivalent, PF 08/31/2021,1 10/04/2019 Influenza, High-dose, Quadrivalent 06/09/2023, Influenza, Seasonal, Injectable, Undefined 06/20 Influenza, high-dose, trivalent, PF 06/18/2024 PUR TDAP 7+ YRS IM 04/07/2016 Pneumococcal Vaccine - 13 Valent 07/19/2017 Pneumococcal Vaccine Adult - 23 Valent 4 TD VACCINE 08/28/2003 Social History Tobacco Use Types Packs/Day Years Used Date Smoking Tobacco: Former Cigarettes 1 25 1 970 - 1994 Smokeless Tobacco: Never Tobacco Cessation:Counseling Given: Not Answered Alcohol Use Standard Drinks/Week Comments Yes 0 [...] Sign Reading Time Taken Comments Blood Pressure 130/62 01/16/2025 1:28 PM CDT Pulse 95 01/16/2025 1:28 PM CDT Temperature 36.3 C (97.3 F) 01/16/2025 1:28 PM CDT Respiratory Rate 18 01/16/2025 12:54 PM CDT Oxygen Saturation 95% 01/16/2025 1:28 PM CDT Inhaled Oxygen Concentration - - Weight 84.4 kg (186 lb) 01/16/2025 1:28 PM CDT Height 185.4 cm (6' 1 ) 01/15/2025 11:14 AM CDT Body Mass Index 24.54 01/15/2025 11:14 AM CDT Plan of Treatment Upcoming Encounters Date Type Department Care Team (Late st Contact Info) Description 01/21/2025 1:00 AM CDT Home Care Visit [address] [address] Natalie Dobbins, RN [place] 01/22/2025 2:00 PM CDT Home Care Visit [address] [address] Maggy Miranda, PRODUCTION CONTROL CLERK 01/23/2025 1:00 AM CDT Home Care Visit [address] [address] Natalie Dobbins, RN [place] 01/24/2025 2:30 PM CDT Home Care Visit [address] [address] Maggy Miranda, PRODUCTION CONTROL CLERK 01/27/2025 2:30 PM CDT Home Care Visit [address] [address] Maggy Miranda, PRODUCTION CONTROL CLERK 01/28/2025 1:00 AM CDT Home Care Visit [address] [address] Natalie Dobbins, RN [place] 01/29/2025 1:00 AM CDT Home Care Visit [address] [address] Miriam Jackson PT [place] 02/04/2025 1:00 AM CDT Home Care Visit [address] [address] Natalie Dobbins, RN [place] 09/22/2025 10:30 AM SLIVER CUTTER Office Visit [facility] - Primary Care - [address] [place] [address] Rj Shepherd MD [address] [place] [address] Health Maintenance Due Date Last Done Comments Zoster Immunization (1 of 2) 1996 Respiratory Syncytial Virus (RSV) Immunization (Adult) (1 - 1-dose 75+ series) 2021 SARS-COV-2 Immunization ( season) 2024 06/18/2024, 06/09/2023, 03/21/2022, Additional history exists Td Immunization Every 10 Years (Adults With 1 Tdap) 04/07/2026 04/07/2016, 08/28/2003 Pneumococcal Immunization (50+ years) Completed 07/19/2017, 07/28/2014 Pneumococcal Immunization Combined Discontinued 07/19/2017, 07/28/2014 Colorectal Cancer Screening Discontinued Immunochemical Fecal Occult Blood Discontinued 06/05/2019, 07/19/2017 Hepatitis C Virus (HCV) Screening Completed 09/05/2023 Influenza Immunization Completed , 06/09/2023, 07/07/2022, Additional history exists Cologuard Discontinued Colonoscopy High Risk Discontinued Colonoscopy Discontinued Hepatitis B Immunization Aged Out No longer eligible based on patient's age to complete this topic Human Papillomavirus (HPV) Immunization Aged Out No longer eligible based on patient's age to complete this topic Meningococcal Immunization (ACWY) Aged Out No longer eligible based on patient's age to complete this topic Rotavirus Immunization Aged Out No lo nger eligible based on patient's age to complete this topic Procedures Procedure Name Priority Date/Time Associated Diagnosis Comments URINALYSIS REFLEX IF INDICATED BY ABNORMAL RESULTS Routine 01/15/2025 12:06 PM CDT Urge urinary incontinence CBC WITH AUTO DIFFERENTIAL Today 01/15/2025 12:00 PM CDT S/P CABG x 3 Panlobular emphysema (HCC) COMPLETE BLOOD COUNT (CBC) WITH DIFF Today 01/15/2025 12:00 PM CDT S/P CABG x 3 Panlobular emphysema (HCC) CARDIOLOGY CONSULT 11/19/2024 12 :00 AM CDT LIPID PANEL 11/19/2024 12:00 AM CDT COMPLETE BLOOD COUNT (CBC) WITH DIFF 11/19/2024 12:00 AM CDT BASIC METABOLIC PANEL W/ CALCIUM TOTAL 11/19/2024 12:00 AM CDT CARDIOLOGY PROCEDURE 11/19/2024 12:00 AM CDT HEPATITIS C ANTIBODY Routine 09/05/2023 8:15 AM SLIVER CUTTER Encounter for hepatitis C screening test for low risk patient STOOL, OCCULT BLOOD IMMUNOASSAY (IFOB) Routine 06/05/2019 Screen for colon cancer from Last 3 Months or Most Recently Relevant to Health Maintenance Results * (ABNORMAL) URINALYSIS REFLEX IF INDICATED BY ABNORMAL RESULTS (01/15/2025 12:06 PM CDT) Pathologist [facility] SPECIFIC GRAVITY 1.015 1.003 - 1.030 01/15/2025 4:06 PM CDT [facility] URINE PH 5.0 5.0 - 9.0 01/15/2025 4:06 PM CDT [facility] WBC ESTERASE Negative Negative 01/15/2025 4:06 PM CDT [facility] NITRITE Negative Negative 01/15/2025 4:06 PM CDT [facility] PROTEIN, RANDOM URINE 15 mg/dL(A) Negative 01/15/2025 4:06 PM CDT [facility] URINE GLUCOSE, QUAL 1000 mg/dL(A) Negative 01/15/2025 4:06 PM CDT [facility] URINE KETONES Negative Negative 01/15/2025 4:06 PM CDT [facility] UROBILINOGEN Normal Normal mg/dL 01/15/2025 4:06 PM CDT [facility] URINE BLOOD Negative Negative adolfo/ul 01/15/2025 4:06 PM CDT [facility] URINALYSIS COLOR Yellow 01/15/2025 4:06 PM CDT [facility] URINALYSIS CLARITY Clear 01/15/2025 4:06 PM CDT [facility] WBC (Urine) 0-5 Negative, 0-5 /hpf 01/15/2025 4:06 PM CDT [facility] URINE RBC'S 0-2 Negative, 0-2 /hpf 01/15/2025 4:06 PM CDT [facility] EPITHELIAL CELLS Occasional /lpf 01/15/2025 4:06 PM CDT [facility] BACTERIA, URINE Negative Negative /hpf 01/15/2025 4:06 PM CDT [facility] Urine URINE SPECIMEN OBTAINED BY CLEAN CATCH PROCEDURE / Unknown Non-Phlebotomy Collection / Unknown 01/15/2025 12:06 PM CDT 01/15/2025 12:06 PM CDT us Rj Shepherd MD URINE ORDERABLES Final Re sult [facility] [address] [place] [address] * (ABNORMAL) CBC WITH AUTO DIFFERENTIAL (01/15/2025 12:00 PM CDT) WBC 6.76 4.00 - 12.00 10(3)/mcL 01/15/2025 3:26 PM CDT [facility] RBC 3.92(L) 4.40 - 5.80 10(6)/mcL 01/15/2025 3:26 PM CDT [facility] HEMOGLOBIN (HGB) 11.8(L) 13.0 - 16.5 g/dL 01/15/2025 3:26 PM CDT [facility] HEMATOCRIT (HCT) 36.3(L) 38.0 - 50.0 % 01/15/2025 3:26 PM CDT [facility] MCV 92.6 82.0 - 96.0 fL 01/15/2025 3:26 PM CDT [facility] MCH 30.1 26.0 - 32.0 pg 01/15/2025 3:26 PM CDT [facility] MCHC 32.5 31.0 - 36.0 g/dL 01/15/2025 3:26 PM CDT [facility] PLATELET COUNT 301 140 - 440 10(3)/[facility] 01/15/2025 3:26 PM CDT [facility] RDW 14.4 11.8 - 15.5 % 01/15/2025 3:26 PM CDT [facility] MPV 10.1 8.0 - 12.6 fL 01/15/2025 3:26 PM CDT [facility] NEUTROPHILS 81.1(H) 40.0 - 68.0 % 01/15/2025 3:26 PM CDT [facility] LYMPHOCYTES 9.2(L) 19.0 - 49.0 % 01/15/2025 3:26 PM CDT [facility] MONOCYTES 7.5 3.0 - 13.0 % 01/15/2025 3:26 PM CDT [facility] EOSINOPHILS 1.8 0.0 - 8.0 % 01/15/2025 3:26 PM CDT [facility] BASOPHILS 0.4 0.0 - 1.0 % 01/15/2025 3:26 PM CDT [facility] ABSOLUTE NEUTROPHILS 5.48(H) 1.40 - 5.30 10(3)/mcL 01/15/2025 3:26 PM CDT [facility] ABSOLUTE LYMPHOCYTES 0.62(L) 0.90 - 3.30 10(3)/[facility] 01/15/2025 3:26 PM CDT [facility] ABSOLUTE MONOCYTES 0.51 0.10 - 0.90 10(3)/mcL 01/15/2025 3:26 PM CDT [facility] ABSOLUTE EOSINOPHIL 0.12 0.00 - 0.50 10(3)/[facility] 01/15/2025 3:26 PM CDT [facility] ABSOLUTE BASOPHILS 0.03 0.00 - 0.10 10(3)/[facility] 01/15/2025 3:26 PM CDT [facility] NRBC PER 100 WBC 0 01/16/20 3:26 PM CDT [facility] Blood Venipuncture / Unknown 01/15/2025 12:00 PM CDT 01/15/2025 12:00 PM CDT us Rj Shepherd MD HEMATOLOGY ORDERABLES Fin al Result Performing Organization Address City/[facility] Co de Phone Number [facility] [address] [place] [address] * CARDIOLOGY CONSULT (11/19/2024 12:00 AM CDT) 11/19/2024 us Provider Scan GENERIC SCAN ORDERS CONSULT Jazmín rangel Result Performing Organization Address [facility] Co de Phone Number SCAN * CARDIOLOGY PROCEDURE (11/19/2024 12:00 AM CDT) Anatomical Region Laterality Modality Other 11/19/2024 us Provider Scan CV PROCEDURES SCHED Final Result * LIPID PANEL (11/19/2024 12:00 AM CDT) CHOLESTEROL 173 SCAN HDL CHOLESTEROL 41 SCAN LDL 110 SCAN 11/19/2024 us Provider Scan CHEMISTRY ORDERABLES Final Resul t Performing Organization Address City/[facility] Co de Phone Number SCAN * COMPLETE BLOOD COUNT (CBC) WITH DIFF (11/19/2024 12:00 AM CDT) 11/19/2024 us Provider Scan HEMATOLOGY ORDERABLES Final Resu lt Performing Organization Address City/[facility] Co de Phone Number SCAN * BASIC METABOLIC PANEL W/ CALCIUM TOTAL (11/19/2024 12:00 AM CDT) 11/19/2024 us Provider Scan CHEMISTRY ORDERABLES Final Resul t SCAN * HEPATITIS C ANTIBODY (09/05/2023 8:15 AM SLIVER CUTTER) hepatitis C antibody 0.10 <1 S/[facility] ARCH [id number] B 09/05/2023 9:50 PM SLIVER CUTTER [facility] Comment: Signal/Cutoff ratio < 0.79 is Nondetected Signal/Cutoff ratio 0.80-0.99 is Grayzone Signal/Cutoff ratio > 0.99 is Detected Supplemental assays are recommended if signal/cutoff ratio is >/=1.00. Signal/cutoff ratio result >/= 5.00 is 97% predictive of positivity for recombinant immunoblot assay (RIBA) and will be reported to the [place] Department of Public Health as required. Blood Venipuncture / Unknown 09/05/2023 8:15 AM SLIVER CUTTER 09/05/2023 8:15 AM SLIVER CUTTER Rj Shepherd MD CHEMISTRY ORDERABLES Jazmín l Result Performing Organization Address City/[facility]/ZIP Co de Phone Number [facility] [address] [place] [address], * STOOL, OCCULT BLOOD IMMUNOASSAY (IFOB) (06/05/2019) Specimen of unknown material (specimen) STOOL SPECIMEN / Unknown Rj Shepherd MD BODY FLUIDS & STOOLS INGE FLOR Final Result from Last 3 Months or Most Recently Relevant to Health Maintenance Insurance MEDICARE C [facility] [place] [id number] Advance Directives * Full Code (Latest Code Status on File) Date Activated Date Inactivated Comments 01/13/2025 11:30 PM Care Teams Incubator Machine Operator Relationship Specialty Start Date End Date Rj Shepherd MD [address] [place] [address] PCP - General Internal Medicine 09/30/15 Forrest Meyer MD [address] [address] Consulting Physician Urological Surgery 05/04/22 Vivek Chew, PIG IRON LOADER, PLUG OVERWRAP MACHINE TENDER [address] [place] [address] Nurse Practitioner Urology 03/31/22 Jeffery Iverson MD [address] [facility] [address] [place] [address] Consulting Physician Cardiology 08/05/24
--- OUTSIDE RECORDS SUMMARY | 2025-01-18 14:02 | XMS_ITS | Encounter Summary ---
Author Organization [facility] Address [address] [place] [address] Phone Care Team Providers Care Broadcasting Equipment Mechanic Name Role Phone Rj Shepherd MD Primary Care Provider [phone] Forrest Meyer MD Unavailable Vivek Chew APRN, CNP Unavailable [phone] Jeffery Iverson MD Unavailable Reason for Visit * Reason Comments Medication Refill Encounter Details Date Type Department Care Team (Late st Contact Info) Description 03/09/2023 [facility]ill [facility] Primary Care - [place] [address] [place] [address] Rj Shepherd MD [address] [place] [address] Medication Refill Social History Tobacco [...] 01/21/2025 1:00 AM CDT Home Care Visit [address] [address] Natalie Dobbins, RN [place] 01/22/2025 2:00 PM CDT Home Care Visit [address] [address] Maggy Miranda, SANDWICH MAKER 01/23/2025 1:00 AM CDT Home Care Visit [address] [address] Natlaie Dobbins, RN [place] 01/24/2025 2:30 PM CDT Home Care Visit [address] [address] Maggy Miranda, SANDWICH MAKER 01/27/2025 2:30 PM CDT Home Care Visit [address] [address] Maggy Miranda, SANDWICH MAKER 01/28/2025 1:00 AM CDT Home Care Visit [address] [address] Natalie Dobbins, RN [place] 01/29/2025 1:00 AM CDT Home Care Visit [address] [address] Miriam Jackson, [place] 02/04/2025 1:00 AM CDT Home Care Visit [address] [address] Natalie Dobbins, RN [place] 09/22/2025 10:30 AM OSTEOPATHY DOCTOR Office Visit [facility] - Primary Care - [address] [place] [address] Rj Shepherd MD [address] [place] [address] documented as of this encounter Visit Diagnoses Not on filedocumented in this encounter Additional Health Concerns Assessment Noted Time PHQ-9 Depression Total Score: 0 10/04/19 20 9:00 AM OSTEOPATHY DOCTOR documented as of this encounter Care Teams Broadcasting Equipment Mechanic Relationship Specialty Start Date End Date Rj Shepherd MD [address] [place] [address] PCP - General Internal Medicine 09/30/15 Forrest Meyer MD [address] [address] Consulting Physician Urological Surgery 05/04/22 Vivek Chew APRN, ROZ [address] [place] [address] Nurse Practitioner Urology 03/31/22 Jeffery Iverson MD [address] [facility] [address] [place], [place] [id number] Consulting Physician Cardiology 08/05/24 documented as of this encounter
--- OUTSIDE RECORDS SUMMARY | 2025-01-18 14:03 | XMS_ITS | Referral Summary ---
Author Organization [facility] [address] [place] [address] [address] [place] [address] Care Team Providers Care Cork Insulation Installer Name Role Phone Rj Shepherd MD Primary Care Provider + Angel Gonzalez MD Unavailable [phone] Padmaja Louis NP Unavailable Encounters Date Type Department Care Team Description 01/16/2025 Telephone [facility] Medical Group Cardiology [address] [facility] [address] [place] [address] Gustavo Iverson MD 12/30/2024 6:05 AM CDT - 01/08/2025 4:09 PM CDT Hospital Encounter [address] [address] Angel Gonzalez MD Coronary artery disease (CAD) excluded (Primary Dx); 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, unspecified vessel or lesion type Discharge Disposition: Discharge to home, home health skilled care 12/30/2024 7:15 AM CDT Ancillary Procedure [facility] Operating Room [address] [place] [id number] 12/30/2024 8:00 AM CDT - 12/30/2024 2:00 PM CDT Surgery [facility] Operating Room [address] [place] [address] Angel Gonzalez MD CABG X3, Encompass Clamp, DAI, LEFT UPPER LOBE WEDGE RESECTION OF BLEB/360min 12/30/2024 8:05 AM CDT Anesthesia Event [facility] Operating Room [address] [place] [address] Candelaria Resendez DO Eldin, Ali S., MD 12/24/2024 9:41 AM CDT - 12/24/2024 11:59 PM CDT Hospital Encounter [facility] Respiratory [address] [place] [id number] 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 Discharge Disposition: Discharge to home or self care 12/18/2024 11:25 AM CDT - 12/18/2024 11:59 PM CDT Hospital Encounter [facility] Diagnostic Imaging [address] [place] [address] Discharge Disposition: Discharge to home or self care 12/18/2024 9:40 AM CDT - 12/18/2024 11:59 PM CDT Hospital Encounter [facility] Vascular Lab [address] [place] [address] 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; Other chest pain Discharge Disposition: Discharge to home or self care 12/18/2024 10:45 AM CDT Pre-Admission Testing [facility] Pre Anesthesia Testing [address] [place] [address] 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, unspecified vessel or lesion type; Shortness of breath 12/18/2024 9:11 AM CDT - 12/18/2024 11:59 PM CDT Hospital Encounter [facility] Imaging and Radiology [address] [place] [address] 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 Discharge Disposition: Discharge to home or self care 12/10/2024 Orders Only [facility] Surgery [id number] [place] [address] [address] [place] [phone] Angel Gonzalez MD 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 (Primary Dx); Other chest pain 12/10/2024 Orders Only [facility] Surgery [address] [facility] [address] [place] [address] Angel Gonzalez MD 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 (Primary Dx) 12/10/2024 2:00 PM CDT Office Visit [facility] Surgery [address] [facility] [address] [place] [phone] Angel Gonzalez MD 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 (Primary Dx); Heart failure with reduced ejection fraction (HCC); Coronary artery disease involving manzanita coronary artery of manzanita heart, unspecified whether angina present 12/04/2024 11:15 AM CDT Office Visit [facility] Medical Group Cardiology at [address] [place] [phone] Gustavo Iverson MD 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 (Primary Dx); Heart failure with reduced ejection fraction (HCC); Primary hypertension; Paroxysmal atrial fibrillation (HCC); Mixed hyperlipidemia 11/26/2024 Orders Only [facility] Medical Group Cardiology [address] [place] [address] [place] [phone] Gustavo Iverson MD 11/19/2024 Orders Only [facility] Health Information Management [address] [place] [address] Gustavo Iverson MD 11/07/2024 Telephone [facility] Cardiology [address] [place] [address] [place] [phone] Gustavo Iverson MD 11/07/2024 Results Follow-Up [facility] Group Cardiology [address] [place] [address] [place] [phone] Gustavo Iverson MD Transthoracic Echo (TTE) Complete W Doppler/CF 11/07/2024 9:15 AM CDT Ancillary Procedure [facility] Cardiology [address] [place] [address] 162 [address] [place] [address] Heart failure with reduced ejection fraction (HCC) from Last 3 Months Allergies No known active allergies Medications Alfredito 5 mg tabletIndication s:atrial fibrillation Take 1 tablet (5 mg total) by mouth 2 (two) times a day 180 tablet 3 08/09/20 24 Active empagliflozin (Jardiance) 10 mg tabletIndication s:Heart Failure Take 1 tablet (10 mg total) by mouth daily 90 tablet 3 08/12/20 24 Active Additional Information Patient taking differently:10 mg oralEvery morning, Indications: Heart Failure, Reported on 12/18/2024 spironolactone (ALDACTONE) 25 mg tablet Take 1 tablet (25 mg total) by mouth daily 90 tablet 3 08/12/20 24 Active Additional Information Patient taking differently:25 mg oralEvery morning, Reported on 12/30/2024 aspirin 81 mg enteric coated tablet Take 1 tablet (81 mg total) by mouth nightly Active atorvastatin (LIPITOR) 10 mg tablet Take 1 tablet (10 mg total) by mouth daily 30 tablet 01/09/20 25 025 Active amiodarone (PACERONE) 200 mg tablet Take 1 tablet (200 mg total) by mouth 2 (two) times a day 60 tablet 01/09/20 25 025 Active clopidogreL (PLAVIX) 75 mg tablet Take 1 tablet (75 mg total) by mouth daily 30 tablet 1 01/10/20 25 025 Active polyethylene glycol (MIRALAX) 17 gram/dose bulk powderIndication s:constipation Take 17 g by mouth daily 116 g 01/09/20 25 Active senna-docusate (PERICOLACE) 8.6-50 mg Take 1 tablet by mouth daily for 7 days 7 tablet 01/09/20 25 Active oxyCODONE (ROXICODONE) 10 mg tabletIndication s:Pain Take 0.5 tablets (5 mg total) by mouth every 4 (four) hours as needed for pain 28 tablet 01/09/20 25 Active sacubitriL-valsa rtan (ENTRESTO) 49-51 mg tabletIndication s:chronic heart failure Take 1 tablet by mouth 2 (two) times a day 180 tablet 3 08/09/20 24 025 Discontinu ed(Stop Taking at Discharge) metoprolol XL (TOPROL-XL) 200 mg extended release tablet Take 1 tablet (200 mg total) by mouth daily 90 tablet 3 08/09/20 24 025 Discontinu ed(Stop Taking at Discharge) furosemide (LASIX) 40 mg tablet Take 1 tablet (40 mg total) by mouth daily 90 tablet 3 08/12/20 24 025 Discontinu ed(Stop Taking at Discharge) atorvastatin (LIPITOR) 80 mg tablet Take 1 tablet (80 mg total) by mouth nightly 025 Discontinu ed(Stop Taking at Discharge) acetaminophen (TYLENOL) 325 mg tablet Take 2 tablets (650 mg total) by mouth every 6 (six) hours for 7 days 56 tablet 01/09/20 25 025 methocarbamoL (ROBAXIN) 500 mg tablet Take 1 tablet (500 mg total) by mouth every 8 (eight) hours for 7 days 21 tablet 01/09/20 25 025 Active Problems Problem Noted Date Diagnosed Date Coronary artery disease (CAD) excluded Coronary artery disease of n ative heart with stable angina pectoris 12/10/2024 Arthritis 12/10/2024 Coronary artery disease invo lving manzanita coronary artery of 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 angina pectoris 12/04/2024 Mixed hyperlipidemia 12/04/2024 Heart failure with reduced ejection fraction Paroxysmal atrial fibrillation 08/09/2024 Primary hypertension 08/09/2024 Chronic anticoagulation 08/09/2024 Panlobular emphysema 08/05/2024 Social History Tobacco Use Types Packs/Day Years Used Date Smoking Tobacco: Former Cigarettes Q uit: 1995 Passive Smoke Exposure: Past Smokeless Tobacco: Never Tobacco Cessation:Counseling Given: Not Answered AUDIT-C Answer Date Recorded Q1: How often do you have a drink containing alcohol? 4 or more times a week 12/30/2024 Q2: How many drinks containi ng alcohol do you have on a typical day when you are drinking? 1 or 2 Q3: How often do you have si x or more drinks on one occasion? Never 12/30/2024 Personal Safety Answer Date Recorded Have you ever been in or are you currently in a harmful physical or emotional relationship or is someone making you feel afraid or unsafe? Denies 12/30/2024 Sex and Gender Information Value Date Recorded Sex Assigned at Not on file Legal Sex Male 12:48 PM [employer] Gender Identity Not on file Sexual Orientation Not on file Last Filed Vital Signs Vital Sign Reading Time Taken Comments Blood Pressure 105/48 01/08/2025 12:15 PM CDT Pulse 82 01/08/2025 12:15 PM CDT Temperature 37.1 C (98.8 F) 01/08/2025 8:20 AM CDT Respiratory Rate 18 01/08/2025 3:30 AM CDT Oxygen Saturation 97% 01/08/2025 12: 05 PM CDT Inhaled Oxygen Concentration - - Weight 89.7 kg (197 lb 12.8 oz) 01/07/2025 5:55 AM CDT Height 185.4 cm (6' 0.99 ) 01/03/2025 3:14 PM CD T Body Mass Index 26.1 01/03/2025 3:14 PM CDT Plan of Treatment Not on file Medical Devices Implanted Type Area Buckle Gluer Device Identifier Shelf Expiration Date Model / Serial / Lot Atricure Clip Closure Exclusion System Preloaded Standard Left Atrial Appendage Atriclip 40mm [id number] - [id number] Implanted:Qty: 1 on 12/30/2024 by Angel Gonzalez MD at [facility] Clip Left: Atrial Appendage Atricure 10/26/2026 [id number] 00 / [id number] Procedures Procedure Name Priority Date/Time Associated Diagnosis Comments POCT GLUCOSE DEVICE Routine 01/08/2025 12:03 PM CDT XR CHEST PA LATERAL 2 VIEWS IP Routine 01/08/2025 9:36 AM CDT POCT GLUCOSE DEVICE Routine 01/08/2025 7 :49 AM CDT POCT GLUCOSE DEVICE Routine 01/08/2025 5 :36 AM CDT EGFR Routine 01/08/2025 5:36 AM CDT RENAL FUNCTION PANEL Routine 01/08/2025 5:36 AM CDT CBC WITHOUT DIFFERENTIAL Routine 01/08/2025 5:36 AM CDT POCT GLUCOSE DEVICE Routine 01/07/2025 11:58 PM CDT POCT GLUCOSE DEVICE Routine 01/07/2025 8 :43 PM CDT POCT GLUCOSE DEVICE Routine 01/07/2025 5 :14 PM CDT POCT GLUCOSE DEVICE Routine 01/07/2025 12:27 PM CDT POCT GLUCOSE DEVICE Routine 01/07/2025 7 :38 AM CDT XR CHEST 1 VIEW IP Routine 01/07/2025 6:08 AM CDT EGFR Routine 01/07/2025 2:28 AM CDT PHOSPHORUS Routine 01/07/2025 2:28 AM CDT BILIRUBIN, DIRECT Routine 01/07/2025 2:2 8 AM CDT COMPREHENSIVE METABOLIC PANEL Routine 01/07/2025 2:28 AM CDT PROTIME-INR Routine 01/07/2025 2:28 AM CDT APTT Routine 01/07/2025 2:28 AM CDT CBC WITHOUT DIFFERENTIAL Routine 01/07/2025 2:27 AM CDT POCT GLUCOSE DEVICE Routine 01/06/2025 9 :23 PM CDT POCT GLUCOSE DEVICE Routine 01/06/2025 5 :43 PM CDT POCT GLUCOSE DEVICE Routine 01/06/2025 12:16 PM CDT POCT GLUCOSE DEVICE Routine 01/06/2025 7 :45 AM CDT EGFR Routine 01/06/2025 6:16 AM CDT RENAL FUNCTION PANEL Routine 01/06/2025 6:16 AM CDT CBC WITHOUT DIFFERENTIAL Routine 01/06/2025 6:16 AM CDT XR CHEST 1 VIEW IP Routine 01/06/2025 4:28 AM CDT POCT GLUCOSE DEVICE Routine 01/05/2025 9 :44 PM CDT POCT GLUCOSE DEVICE Routine 01/05/2025 4 :58 PM CDT POCT GLUCOSE DEVICE Routine 01/05/2025 12:25 PM CDT ECG 12-LEAD Routine 01/05/2025 12:21 PM CDT POCT GLUCOSE DEVICE Routine 01/05/2025 7 :55 AM CDT XR CHEST 1 VIEW IP Routine 01/05/2025 5:55 AM CDT POCT GLUCOSE DEVICE Routine 01/05/2025 5 :37 AM CDT EGFR Timed 01/05/2025 5:32 AM CDT BILIRUBIN, DIRECT Timed 01/05/2025 5:3 2 AM CDT COMPREHENSIVE METABOLIC PANEL Timed 01/05/2025 5:32 AM CDT PHOSPHORUS Timed 01/05/2025 5:32 AM CDT MAGNESIUM Routine 01/05/2025 5:32 AM CDT CBC WITHOUT DIFFERENTIAL Routine 01/05/2025 5:32 AM CDT POCT GLUCOSE DEVICE Routine 01/05/2025 2 :13 AM CDT POCT GLUCOSE DEVICE Routine 01/04/2025 8 :19 PM CDT POCT GLUCOSE DEVICE Routine 01/04/2025 5 :13 PM CDT POCT GLUCOSE DEVICE Routine 01/04/2025 11:29 AM CDT POCT GLUCOSE DEVICE Routine 01/04/2025 7 :35 AM CDT CRITICAL CARE Routine 01/04/2025 7:24 AM CDT Coronary artery disease (CAD) excluded XR CHEST 1 VIEW IP Routine 01/04/2025 6:06 AM CDT HEPATIC FUNCTION PANEL Add-On 4:34 AM CDT EGFR Routine 01/04/2025 4:34 AM CDT CALCIUM,IONIZED, WHOLE BLOOD Routine 01/04/2025 4:34 AM CDT MAGNESIUM Routine 01/04/2025 4:34 AM CDT RENAL FUNCTION PANEL Routine 01/04/2025 4:34 AM CDT CBC WITHOUT DIFFERENTIAL Routine 01/04/2025 4:34 AM CDT POCT GLUCOSE DEVICE Routine 01/03/2025 7 :55 PM CDT CRITICAL CARE Routine 01/03/2025 7:51 PM CDT Coronary artery disease (CAD) excluded POCT GLUCOSE DEVICE Routine 01/03/2025 4 :44 PM CDT EGFR Timed 01/03/2025 2:19 PM CDT CALCIUM,IONIZED, WHOLE BLOOD Timed 01/03/2025 2:19 PM CDT MAGNESIUM Timed 01/03/2025 2:19 PM CDT BASIC METABOLIC PANEL Timed 01/03/2025 2:19 PM CDT CBC WITHOUT DIFFERENTIAL Timed 01/03/2025 2:19 PM CDT POCT GLUCOSE DEVICE Routine 01/03/2025 12:28 PM CDT HAPTOGLOBIN STAT 01/03/2025 11:13 AM CDT LACTATE DEHYDROGENASE STAT 01/03/2025 11:13 AM CDT PROTIME-INR STAT 01/03/2025 11:13 AM CDT CLINICAL PATHOLOGY REPORT Routine 01/03/2025 11:11 AM CDT CRITICAL CARE Routine 01/03/2025 8:06 AM CDT Coronary artery disease (CAD) excluded POCT GLUCOSE DEVICE Routine 01/03/2025 7 :51 AM CDT XR CHEST 1 VIEW IP Routine 01/03/2025 5:46 AM CDT EGFR Timed 01/03/2025 4:04 AM CDT BILIRUBIN, DIRECT Timed 01/03/2025 4:0 4 AM CDT PHOSPHORUS Timed 01/03/2025 4:04 AM CDT COMPREHENSIVE METABOLIC PANEL Timed 01/03/2025 4:04 AM CDT CALCIUM,IONIZED, WHOLE BLOOD Routine 01/03/2025 4:04 AM CDT MAGNESIUM Routine 01/03/2025 4:04 AM CDT CBC WITHOUT DIFFERENTIAL Routine 01/03/2025 4:04 AM CDT POCT GLUCOSE DEVICE Routine 01/03/2025 4 :01 AM CDT CRITICAL CARE Routine 01/02/2025 8:52 PM CDT Coronary artery disease (CAD) excluded POCT GLUCOSE DEVICE Routine 01/02/2025 7 :46 PM CDT POCT GLUCOSE DEVICE Routine 01/02/2025 4 :53 PM CDT EGFR STAT 01/02/2025 2:35 PM CDT DIFFERENTIAL AUTO STAT 01/02/2025 2:3 5 PM CDT BLOOD GAS, ARTERIAL STAT 01/02/2025 2 :35 PM CDT CALCIUM,IONIZED, WHOLE BLOOD STAT 01/02/2025 2:35 PM CDT CBC WITH AUTO DIFFERENTIAL STAT 01/02/2025 2:35 PM CDT PHOSPHORUS STAT 01/02/2025 2:35 PM CDT MAGNESIUM STAT 01/02/2025 2:35 PM CDT BASIC METABOLIC PANEL STAT 01/02/2025 2:35 PM CDT TRANSFUSE RED BLOOD CELLS Timed 01/02/2025 1:35 PM CDT POCT GLUCOSE DEVICE Routine 01/02/2025 1 :18 PM CDT POCT GLUCOSE DEVICE Routine 01/02/2025 1 :16 PM CDT PREPARE RBC STAT 01/02/2025 11:36 AM CDT OXYHEMOGLOBIN, PULMONARY ARTERY STAT 01/02/2025 10:01 AM CDT POCT GLUCOSE DEVICE Routine 01/02/2025 8 :28 AM CDT CRITICAL CARE Routine 01/02/2025 6:54 AM CDT Coronary artery disease (CAD) excluded XR CHEST 1 VIEW IP Routine 01/02/2025 6:18 AM CDT POCT GLUCOSE DEVICE Routine 01/02/2025 3 :36 AM CDT EGFR Routine 01/02/2025 2:14 AM CDT CALCIUM,IONIZED, WHOLE BLOOD Routine 01/02/2025 2:14 AM CDT MAGNESIUM Routine 01/02/2025 2:14 AM CDT RENAL FUNCTION PANEL Routine 01/02/2025 2:14 AM CDT CBC WITHOUT DIFFERENTIAL Routine 01/02/2025 2:14 AM CDT POCT GLUCOSE DEVICE Routine 01/01/2025 11:59 PM CDT POCT GLUCOSE DEVICE Routine 01/01/2025 9 :06 PM CDT CRITICAL CARE Routine 01/01/2025 7:22 PM CDT Coronary artery disease (CAD) excluded POC BLOOD GAS AND CHEMISTRIES, ARTERIAL Routine 01/01/2025 4:52 PM CDT POCT GLUCOSE DEVICE Routine 01/01/2025 4 :32 PM CDT POC BLOOD GAS AND CHEMISTRIES, ARTERIAL Routine 01/01/2025 2:25 PM CDT POCT GLUCOSE DEVICE Routine 01/01/2025 12:20 PM CDT EGFR Timed 01/01/2025 11:58 AM CDT BLOOD GAS, ARTERIAL STAT 01/01/2025 11:58 AM CDT CBC WITHOUT DIFFERENTIAL Timed 01/01/2025 11:58 AM CDT CALCIUM,IONIZED, WHOLE BLOOD Timed 01/01/2025 11:58 AM CDT BASIC METABOLIC PANEL Timed 01/01/2025 11:58 AM CDT PHOSPHORUS Timed 01/01/2025 11:58 AM CDT MAGNESIUM Timed 01/01/2025 11:58 AM CDT POC BLOOD GAS AND CHEMISTRIES, ARTERIAL Routine 01/01/2025 11:05 AM CDT POCT GLUCOSE DEVICE Routine 01/01/2025 8 :03 AM CDT ECG 12-LEAD STAT 01/01/2025 7:41 AM CDT CRITICAL CARE Routine 01/01/2025 6:50 AM CDT Coronary artery disease (CAD) excluded XR CHEST 1 VIEW IP Routine 01/01/2025 5:34 AM CDT FIBRINOGEN Routine 01/01/2025 2:36 AM CDT PROTIME-INR Routine 01/01/2025 2:36 AM CDT CBC WITHOUT DIFFERENTIAL Routine 01/01/2025 2:36 AM CDT EGFR Routine 01/01/2025 2:31 AM CDT BILIRUBIN, DIRECT Routine 01/01/2025 2:3 1 AM CDT COMPREHENSIVE METABOLIC PANEL Routine 01/01/2025 2:31 AM CDT CALCIUM,IONIZED, WHOLE BLOOD Routine 01/01/2025 2:31 AM CDT MAGNESIUM Routine 01/01/2025 2:31 AM CDT PHOSPHORUS Routine 01/01/2025 2:31 AM CDT POCT GLUCOSE DEVICE Routine 12/31/2024 11:45 PM CDT POCT GLUCOSE DEVICE Routine 12/31/2024 9 :49 PM CDT POCT GLUCOSE DEVICE Routine 12/31/2024 8 :18 PM CDT CRITICAL CARE Routine 12/31/2024 7:12 PM CDT Coronary artery disease (CAD) excluded POCT GLUCOSE DEVICE Routine 12/31/2024 6 :43 PM CDT EGFR Timed 12/31/2024 5:57 PM CDT BASIC METABOLIC PANEL Timed 12/31/2024 5:57 PM CDT CBC WITHOUT DIFFERENTIAL Timed 12/31/2024 5:57 PM CDT CLINICAL PATHOLOGY REPORT Routine 12/31/2024 5:04 PM CDT CALCIUM,IONIZED, WHOLE BLOOD Timed 12/31/2024 5:04 PM CDT POCT GLUCOSE DEVICE Routine 12/31/2024 4 :52 PM CDT TRANSFUSE PLATELETS Timed 12/31/2024 4 :10 PM CDT POCT GLUCOSE DEVICE Routine 12/31/2024 3 :46 PM CDT POCT GLUCOSE DEVICE Routine 12/31/2024 2 :59 PM CDT POCT GLUCOSE DEVICE Routine 12/31/2024 1 :43 PM CDT POCT GLUCOSE DEVICE Routine 12/31/2024 12:47 PM CDT POCT GLUCOSE DEVICE Routine 12/31/2024 11:46 AM CDT POCT GLUCOSE DEVICE Routine 12/31/2024 10:38 AM CDT BLOOD GAS, ARTERIAL Timed 12/31/2024 10:33 AM CDT HEPATIC FUNCTION PANEL Add-On 10:09 AM CDT EGFR Timed 12/31/2024 10:09 AM CDT PROTIME-INR Timed 12/31/2024 10:09 AM CDT APTT Timed 12/31/2024 10:09 AM CDT BASIC METABOLIC PANEL Timed 12/31/2024 10:09 AM CDT CBC WITHOUT DIFFERENTIAL Timed 12/31/2024 10:09 AM CDT EXTUBATION Routine 12/31/2024 9:43 AM CDT POCT GLUCOSE DEVICE Routine 12/31/2024 9 :28 AM CDT BLOOD GAS, ARTERIAL Timed 12/31/2024 9 :24 AM CDT POCT GLUCOSE DEVICE Routine 12/31/2024 8 :26 AM CDT ECG 12-LEAD Routine 12/31/2024 7:20 AM CDT CRITICAL CARE Routine 12/31/2024 7:00 AM CDT Coronary artery disease (CAD) excluded POCT GLUCOSE DEVICE Routine 12/31/2024 6 :35 AM CDT XR CHEST 1 VIEW IP Routine 12/31/2024 5:47 AM CDT POCT GLUCOSE DEVICE Routine 12/31/2024 5 :31 AM CDT CALCIUM,IONIZED, WHOLE BLOOD STAT 12/31/2024 5:19 AM CDT BLOOD GAS, ARTERIAL STAT 12/31/2024 5 :19 AM CDT POCT GLUCOSE DEVICE Routine 12/31/2024 4 :25 AM CDT OXYHEMOGLOBIN, CENTRAL VENOUS Routine 12/31/2024 4:04 AM CDT EGFR Routine 12/31/2024 3:46 AM CDT DIFFERENTIAL AUTO Routine 12/31/2024 3:4 6 AM CDT FIBRINOGEN Routine 12/31/2024 3:46 AM CDT PROTIME-INR Routine 12/31/2024 3:46 AM CDT VITAMIN D 25 HYDROXY Routine 12/31/2024 3:46 AM CDT LIPID PANEL Routine 12/31/2024 3:46 AM CDT HEMOGLOBIN A1C Routine 12/31/2024 3:46 AM CDT THYROID FUNCTION CASCADE Routine 12/31/2024 3:46 AM CDT PHOSPHORUS Routine 12/31/2024 3:46 AM CDT MAGNESIUM Routine 12/31/2024 3:46 AM CDT BASIC METABOLIC PANEL Routine 12/31/2024 3:46 AM CDT CBC WITH AUTO DIFFERENTIAL Routine 12/31/2024 3:46 AM CDT POCT GLUCOSE DEVICE Routine 12/31/2024 3 :24 AM CDT POCT GLUCOSE DEVICE Routine 12/31/2024 2 :19 AM CDT FIBRINOGEN STAT 12/31/2024 1:16 AM CDT APTT STAT 12/31/2024 1:16 AM CDT PROTIME-INR STAT 12/31/2024 1:16 AM CDT POCT GLUCOSE DEVICE Routine 12/31/2024 1 :15 AM CDT TRANSFUSE RED BLOOD CELLS Timed 12/31/2024 1:15 AM CDT PREPARE RBC Routine 12/31/2024 1:13 AM CDT POCT GLUCOSE DEVICE Routine 12/30/2024 11:59 PM CDT POTASSIUM, WHOLE BLOOD STAT 11:54 PM CDT BLOOD GAS, ARTERIAL STAT 12/30/2024 11:54 PM CDT CBC WITHOUT DIFFERENTIAL Routine 12/30/2024 11:54 PM CDT TRANSFUSE PLASMA Timed 12/30/2024 11:00 PM CDT POCT GLUCOSE DEVICE Routine 12/30/2024 10:57 PM CDT TRANSFUSE PLATELETS Timed 12/30/2024 10:15 PM CDT POCT GLUCOSE DEVICE Routine 12/30/2024 10:01 PM CDT TRANSFUSE PLATELETS Timed 12/30/2024 9 :15 PM CDT POCT GLUCOSE DEVICE Routine 12/30/2024 8 :58 PM CDT EGFR STAT 12/30/2024 8:51 PM CDT CALCIUM,IONIZED, WHOLE BLOOD STAT 12/30/2024 8:51 PM CDT BLOOD GAS, ARTERIAL STAT 12/30/2024 8 :51 PM CDT FIBRINOGEN STAT 12/30/2024 8:51 PM CDT BASIC METABOLIC PANEL STAT 12/30/2024 8:51 PM CDT CBC WITHOUT DIFFERENTIAL Timed 12/30/2024 8:51 PM CDT APTT STAT 12/30/2024 8:51 PM CDT TRANSFUSE RED BLOOD CELLS Timed 12/30/2024 8:00 PM CDT POCT GLUCOSE DEVICE Routine 12/30/2024 7 :52 PM CDT TRANSFUSE PLASMA Timed 12/30/2024 7:50 PM CDT TRANSFUSE PLATELETS Timed 12/30/2024 7 :30 PM CDT PREPARE RBC STAT 12/30/2024 7:23 PM CDT CRITICAL CARE Routine 12/30/2024 7:19 PM CDT Coronary artery disease (CAD) excluded PREPARE PLATELETS STAT 12/30/2024 7:0 4 PM CDT TRANSFUSE PLATELETS Timed 12/30/2024 6 :50 PM CDT POCT GLUCOSE DEVICE Routine 12/30/2024 6 :42 PM CDT PREPARE PLATELETS Routine 12/30/2024 6:2 9 PM CDT PREPARE PLASMA STAT 12/30/2024 6:28 PM CDT LACTATE STAT 12/30/2024 6:25 PM CDT BLOOD GAS, ARTERIAL STAT 12/30/2024 6 :25 PM CDT CBC WITHOUT DIFFERENTIAL STAT 12/30/2024 6:25 PM CDT TYPE AND SCREEN Timed 12/30/2024 6:25 PM CDT PROTIME-INR STAT 12/30/2024 6:25 PM CDT FIBRINOGEN STAT 12/30/2024 6:25 PM CDT TRANSFUSE RED BLOOD CELLS Timed 12/30/2024 6:20 PM CDT PREPARE RBC STAT 12/30/2024 6:20 PM CDT TRANSFUSE CRYOPRECIPITATE (POOLED UNITS) Timed 12/30/2024 5:45 PM CDT POCT GLUCOSE DEVICE Routine 12/30/2024 5 :40 PM CDT TRANSFUSE CRYOPRECIPITATE (POOLED UNITS) Timed 12/30/2024 5:30 PM CDT PREPARE RBC STAT 12/30/2024 5:25 PM CDT TRANSFUSE PLATELETS Timed 12/30/2024 5 :15 PM CDT CRITICAL CARE Routine 12/30/2024 4:59 PM CDT 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, unspecified vessel or lesion type XR CHEST 1 VIEW Critical/Life-T hreatening 12/30/2024 4:48 PM CDT PREPARE CRYOPRECIPITATE (POOLED UNITS) STAT 12/30/2024 4:47 PM CDT TRANSFUSE PLATELETS Timed 12/30/2024 4 :45 PM CDT PREPARE PLATELETS STAT 12/30/2024 4:3 8 PM CDT EGFR STAT 12/30/2024 4:37 PM CDT PHOSPHORUS Add-On 12/30/2024 4:37 PM CDT MAGNESIUM STAT 12/30/2024 4:37 PM CDT CALCIUM,IONIZED, WHOLE BLOOD STAT 12/30/2024 4:37 PM CDT APTT STAT 12/30/2024 4:37 PM CDT PROTIME-INR STAT 12/30/2024 4:37 PM CDT CBC WITHOUT DIFFERENTIAL Timed 12/30/2024 4:37 PM CDT BLOOD GAS, ARTERIAL Timed 12/30/2024 4 :37 PM CDT BASIC METABOLIC PANEL STAT 12/30/2024 4:37 PM CDT POCT GLUCOSE DEVICE Routine 12/30/2024 4 :26 PM CDT XR CHEST 1 VIEW IP Routine 12/30/2024 3:40 PM CDT ANESTHESIA PEDRO Routine 12/30/2024 3:25 PM CDT TRANSFUSE PLATELETS Timed 12/30/2024 3 :16 PM CDT POC BLOOD GAS AND CHEMISTRIES, ARTERIAL Routine 12/30/2024 3:11 PM CDT PLATELET COUNT STAT 12/30/2024 3:00 PM CDT PREPARE PLATELETS STAT 12/30/2024 2:5 8 PM CDT POC BLOOD GAS AND CHEMISTRIES, ARTERIAL Routine 12/30/2024 2:41 PM CDT PROTIME-INR STAT 12/30/2024 2:41 PM CDT PLATELET COUNT STAT 12/30/2024 2:41 PM CDT POCT ACTIVATED CLOTTING TIME, HIGH RANGE Routine 12/30/2024 2:38 PM CDT TRANSFUSE PLASMA Timed 12/30/2024 2:21 PM CDT POC BLOOD GAS AND CHEMISTRIES, ARTERIAL Routine 12/30/2024 2:20 PM CDT TRANSFUSE PLATELETS Timed 12/30/2024 2 :18 PM CDT POCT ACTIVATED CLOTTING TIME, HIGH RANGE Routine 12/30/2024 2:16 PM CDT TRANSFUSE PLASMA Timed 12/30/2024 2:12 PM CDT TRANSFUSE PLATELETS Timed 12/30/2024 2 :11 PM CDT POC BLOOD GAS AND CHEMISTRIES, ARTERIAL Routine 12/30/2024 1:38 PM CDT POCT ACTIVATED CLOTTING TIME, HIGH RANGE Routine 12/30/2024 1:37 PM CDT PLATELET COUNT STAT 12/30/2024 1:11 PM CDT POC BLOOD GAS AND CHEMISTRIES, ARTERIAL Routine 12/30/2024 1:03 PM CDT POCT ACTIVATED CLOTTING TIME, HIGH RANGE Routine 12/30/2024 1:03 PM CDT POC BLOOD GAS AND CHEMISTRIES, ARTERIAL Routine 12/30/2024 12:06 PM CDT POCT ACTIVATED CLOTTING TIME, HIGH RANGE Routine 12/30/2024 12:06 PM CDT POC BLOOD GAS AND CHEMISTRIES, ARTERIAL Routine 12/30/2024 11:05 AM CDT POCT ACTIVATED CLOTTING TIME, HIGH RANGE Routine 12/30/2024 11:05 AM CDT SURGICAL PATHOLOGY Routine 12/30/2024 10:47 AM CDT 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, unspecified vessel or lesion type POCT ACTIVATED CLOTTING TIME, HIGH RANGE Routine 12/30/2024 10:38 AM CDT POC BLOOD GAS AND CHEMISTRIES, ARTERIAL Routine 12/30/2024 10:02 AM CDT PERIPHERAL LINE Routine 12/30/2024 9:14 AM CDT ANESTHESIA CENTRAL VENOUS LINE PLACEMENT Routine 12/30/2024 9:13 AM CDT ANESTHESIA CENTRAL VENOUS LINE PLACEMENT Routine 12/30/2024 9:13 AM CDT ANESTHESIA ARTERIAL LINE PLACEMENT Routine 12/30/2024 9:12 AM CDT CO AN ELECTIVE ENDOTRACHEAL AIRWAY Routine 12/30/2024 9:11 AM CDT POC BLOOD GAS AND CHEMISTRIES, ARTERIAL Routine 12/30/2024 8:54 AM CDT POCT ACTIVATED CLOTTING TIME, HIGH RANGE Routine 12/30/2024 8:51 AM CDT CORONARY ARTERY BYPASS GRAFT - INTERNAL MAMMARY ARTERY 12/30/2024 8:04 AM CDT 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, unspecified vessel or lesion type B CHECK SAMPLE STAT 12/30/2024 7:45 AM CDT PEDRO ADD-ON FOR OR Routine 12/30/2024 7:1 6 AM CDT POTASSIUM, WHOLE BLOOD STAT 6:55 AM CDT PREPARE PLASMA STAT 12/30/2024 6:47 AM CDT PREPARE PLATELETS STAT 12/30/2024 6:4 7 AM CDT PREPARE RBC STAT 12/30/2024 6:47 AM CDT PULMONARY FUNCTION TEST (PFT) Routine 12/24/2024 10:23 AM CDT 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 US VEIN MAPPING DUPLEX LOWER EXTREMITY BILATERAL Schedule Routine, Read Routine (OP Routine) 12/18/2024 1:30 PM CDT 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 Other chest pain EGFR Routine 12/18/2024 12:06 PM CDT 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, unspecified vessel or lesion type BASIC METABOLIC PANEL Routine 12/18/2024 12:06 PM CDT 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, unspecified vessel or lesion type PROTIME-INR Routine 12/18/2024 12:05 PM CDT 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, unspecified vessel or lesion type APTT Routine 12/18/2024 12:05 PM CDT 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, unspecified vessel or lesion type Shortness of breath CBC WITHOUT DIFFERENTIAL Routine 12/18/2024 12:05 PM CDT 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, unspecified vessel or lesion type TYPE AND SCREEN Routine 12/18/2024 11:54 AM CDT 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, unspecified vessel or lesion type URINALYSIS AND REFLEX TO MICROSCOPIC AND CULTURE Routine 12/18/2024 11:54 AM CDT 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, unspecified vessel or lesion type ECG 12-LEAD Routine 12/18/2024 11:49 AM CDT 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, unspecified vessel or lesion type XR CHEST PA LATERAL 2 VIEWS Schedule Routine, Read Routine (OP Routine) 12/18/2024 11:35 AM CDT 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, unspecified vessel or lesion type CT CHEST WO CONTRAST Schedule Routine, Read Routine (OP Routine) 12/18/2024 9:31 AM CDT 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 CARDIOLOGY DOCUMENT SCAN Routine 11/19/2024 1:37 PM CDT LIPID PANEL Routine 11/19/2024 11:36 AM CDT CARDIOLOGY DOCUMENT SCAN 11/19/2024 TRANSTHORACIC ECHO (TTE) COMPLETE W DOPPLER/CF WO CONTRAST Routine 11/07/2024 9:56 AM CDT Heart failure with reduced ejection fraction (HCC) from Last 3 Months Results * POCT glucose (01/08/2025 12:03 PM CDT) Glucose, POC 130 70 - 199 mg/dL POC Performer [id number] ARON BHAT Blood 01/08/2025 12:0 3 PM CDT 01/08/2025 12:03 PM CDT us Angel [place] MD LAB POCT ORDERABLES - DEVICE Final Result ARON BHAT [address] [address] [place] [address] * XR Chest PA Lateral 2 Views (01/08/2025 9:36 AM CDT) Anatomical Region Laterality Modality Body, Chest N/A Computed Radiogr aphy 01/08/2025 9:43 AM CDT Impressions 01/08/2025 9:43 AM CDT No failure. Electronically signed by: Sangeeta Harmon M.D. Narrative 01/08/2025 9:43 AM CDT EXAMINATION: XR CHEST PA LATERAL 2 VIEWS HISTORY: The patient is a 79-year-old male who has had bypass surgery. Comparison is made with the previous study dated 01/07/2025. TECHNIQUE: PA and lateral view of the chest. FINDINGS: Borderline cardiomegaly with aortic atherosclerosis. No failure. No active infiltrate. The tip of a retracted Juniata-Maryanne catheter is in the superior vena cava. Procedure Note Sangeeta Harmon MD - 01/08/2025 EXAMINATION: XR CHEST PA LATERAL 2 VIEWS HISTORY: The patient is a 79-year-old male who has had bypass surgery. Comparison is made with the previous study dated 01/07/2025. TECHNIQUE: PA and lateral view of the chest. FINDINGS: Borderline cardiomegaly with aortic atherosclerosis. No failure. No active infiltrate. The tip of a retracted Juniata-Maryanne catheter is in the superior vena cava. IMPRESSION: No failure. Electronically signed by: Sangeeta Harmon M.D. us Jessica Kimble LABOR CUSTODIAN IMG XR PROCEDURES Final Re sult * POCT glucose (01/08/2025 7:49 AM CDT) Glucose, POC 132 70 - 199 mg/dL POC Performer [id number] ARON BHAT Blood 01/08/2025 7:49 AM CDT 01/08/2025 7:49 AM CDT Angel [place] MD LAB POCT ORDERABLES - DEVICE Final Result ARON [address] [address] Department of Laboratories [place] [id number] * eGFR (01/08/2025 5:36 AM CDT) eGFR 64 >=60 mL/min/1. 73 m2 Comment: Interpretive Data Reference Interval Normal >/= 90 mL/min/1.73m2 Mildly decreased* 60 - 89 mL/min/1.73m2 Mildly to moderately decreased 45 - 59 mL/min/1.73m2 Moderately to severely decreased 30 - 44 mL/min/1.73m2 Severely decreased 15 - 29 mL/min/1.73m2 Kidney Failure < 15 mL/min/1.73m2 *Relative to young adult level Estimated glomerular filtration rate is determined by the 2020 CKD-EPI equation recommended by the National Kidney Foundation (A Unifying Approach to GFR Estimation: Recommendations of the NKF-ASK Task Force on Reassessing the Inclusion of Race in Diagnosing Kidney Disease, JASN 202). The CKD-EPI equation should not be used for patients with unstable renal function and has not been validated in children and those over 70. Current interpretive data was last reviewed 2021. Blood 01/08/2025 5:36 AM CDT 01/08/2025 5:53 AM CDT us Maureen Martinez LABOR CUSTODIAN LAB BLOOD ORDERABLES Fin al Result Performing Organization Address [facility] Co de Phone Number ARON BHAT [address] [address] [place] [address] * POCT glucose (01/08/2025 5:36 AM CDT) Pathologist [facility] Glucose, POC 163 70 - 199 mg/dL POC Performer [id number] [facility] Blood 01/08/2025 5:36 AM CDT 01/08/2025 5:36 AM CDT Angel [place] MD LAB POCT ORDERABLES - DEVICE Final Result Performing Organization Address [facility] [address]/[facility] Co de Phone Number ARON BHAT [address] [address] Department [place] [employer] [place] [address] * (ABNORMAL) CBC without differential (01/08/2025 5:36 AM CDT) [facility] WBC 4.62 3.80 - 9.90 K/cumm Hgb 9.3(L) 13.0 - 17.5 g/dL [facility] Hct 28.7(L) 38.9 - 50.3 % [facility] Plt 125(L) 150 - 400 K/cumm [facility] MPV 10.9 9.1 - 12.3 fL [facility] RBC 3.15(L) 4.30 - 5.80 M/cumm [facility] MCV 91.1 81.3 - 96.4 fL [facility] MCH 29.5 27.1 - 33.3 pg [facility] MCHC 32.4 32.3 - 35.7 g/dL [facility] RDW CV 14.1 11.1 - 14.9 % [facility] RDW SD 46.5 35.7 - 48.1 fL [facility] NRBC abs 0.00 0.00 - 0.01 K/cumm [facility] Blood 01/08/2025 5:36 AM CDT 01/08/2025 5:54 AM CDT Maureen Martinez NP LAB BLOOD ORDERABLES Fin al Result [facility] [address] [address] Department [place] [address] * (ABNORMAL) Renal function panel (01/08/2025 5:36 AM CDT) Sodium 137 135 - 145 mmol/L Potassium, pl 3.8 3.3 - 4.9 mmol/L [facility] Chloride 98 97 - 110 mmol/L [facility] CH CO2 28 22 - 32 mmol/L [facility] Anion gap 11 2 - 15 mmol/L [facility] BUN 33(H) 6 - 25 mg/dL [facility] Creatinine 1.17 0.80 - 1.30 mg/dL [facility] Comment:Icteric sample, test results may be affected. Glucose 153 70 - 199 mg/dL [facility] Comment: Interpretive Data Fasting glucose >/= 126 mg/dl is diagnostic for diabetes. Fasting is defined as no caloric intake for at least 8 hours. Fasting glucose between 100 mg/dl to 125 mg/dl is diagnostic of prediabetes. In a patient with classic symptoms of hyperglycemia or hyperglycemic crisis, a random glucose >/= 200 mg/dl is diagnostic for diabetes. In the absence of unequivocal hyperglycemia, results should be confirmed by repeat testing. The classification and Diagnosis of Diabetes Diabetes Care 2021; 46: S19-S40. Current interpretive data was last revised 2022. Calcium 8.6 8.5 - 10.3 mg/dL [facility] Phosphorus, pl 2.8 2.3 - 4.5 mg/dL [facility] Albumin 3.2(L) 3.5 - 5.0 g/dL [facility] Blood 01/08/2025 5:36 AM CDT 01/08/2025 5:53 AM CDT Maureen Carmen Michelle LABOR CUSTODIAN LAB BLOOD ORDERABLES Fin al Result Performing Organization Address City/[facility] [address]/ZIP Co de Phone Number ARON BHAT [address] [address] [facility] [place] [place] [address] * POCT glucose (01/07/2025 11:58 PM CDT) Glucose, POC 139 70 - 199 mg/dL POC Performer [id number] [facility] Blood 01/07/2025 11:5 8 PM CDT 01/07/2025 11:58 PM CDT Angel [place] MD LAB POCT ORDERABLES - DEVICE Final Result Performing Organization Address [facility] [address] [facility] Co de Phone Number ARON BHAT [address] [address] [facility] [place] [place] [address] * POCT glucose (01/07/2025 8:43 PM CDT) Glucose, POC 167 70 - 199 mg/dL POC Performer [id number] [facility] Blood 01/07/2025 8:43 PM CDT 01/07/2025 8:43 PM CDT Angel [place] MD LAB POCT ORDERABLES - DEVICE Final Result Performing Organization Address [facility] [address] [facility] Co de Phone Number LETIBERTO BHAT [address] [address] [facility] [place] [place] [address] * POCT glucose (01/07/2025 5:14 PM CDT) Glucose, POC 168 70 - 199 mg/dL POC Performer [id number] [facility] Blood 01/07/2025 5:14 PM CDT 01/07/2025 5:14 PM CDT Angel [place] MD LAB POCT ORDERABLES - DEVICE Final Result Performing Organization Address City/[facility] [address]/ZIP Co de Phone Number ARON BHAT [address] [address] [place] [address] * POCT glucose (01/07/2025 12:27 PM CDT) Glucose, POC 127 70 - 199 mg/dL POC Performer [id number] [facility] Blood 01/07/2025 12:2 7 PM CDT 01/07/2025 12:27 PM CDT Angel [place] MD LAB POCT ORDERABLES - DEVICE Final Result Performing Organization Address [facility] [address]/[facility] de Phone Number ARON BHAT [address] Department [place] [place] [address] * POCT glucose (01/07/2025 7:38 AM CDT) Glucose, POC 150 70 - 199 mg/dL POC Performer [id number] [facility] Blood 01/07/2025 7:38 AM CDT 01/07/2025 7:38 AM CDT Angel [place] MD LAB POCT ORDERABLES - DEVICE Final Result Performing Organization Address [facility] Phone Number ARON BHAT [address] [address] [facility] [place] [place] [address] * XR Chest 1 View - Portable - in AM (01/07/2025 6:08 AM CDT) Anatomical Region Laterality Modality Body, Chest N/A Computed Radiogr aphy 01/07/2025 7:55 AM CDT Impressions 01/07/2025 7:55 AM CDT Findings as described above. Electronically signed by: Sangeeta Harmon M.D. Narrative 01/07/2025 7:55 AM CDT EXAMINATION: XR CHEST 1 VIEW HISTORY: The patient is a 79-year-old male who has had cardiac surgery. Comparison made with the previous study dated 01/06/2025. TECHNIQUE: AP portable view of the chest. FINDINGS: Cardiomegaly with aortic atherosclerosis. Mild degree of vascular congestion. No focal consolidation. The distal tip of the retracted Juniata-Maryanne catheter is in the distal superior vena cava. Procedure Note Sangeeta Harmon MD - 01/07/2025 EXAMINATION: XR CHEST 1 VIEW HISTORY: The patient is a 79-year-old male who has had cardiac surgery. Comparison made with the previous study dated 01/06/2025. TECHNIQUE: AP portable view of the chest. FINDINGS: Cardiomegaly with aortic atherosclerosis. Mild degree of vascular congestion. No focal consolidation. The distal tip of the retracted Juniata-Maryanne catheter is in the distal superior vena cava. IMPRESSION: Findings as described above. Electronically signed by: Sangeeta Harmon M.D. us Maureen Martinez NP IMG XR PROCEDURES Final Result * (ABNORMAL) eGFR (01/07/2025 2:28 AM CDT) eGFR 56(L) >=60 mL/min/1. 73 m2 Comment: Interpretive Data Reference Interval Normal >/= 90 mL/min/1.73m2 Mildly decreased* 60 - 89 mL/min/1.73m2 Mildly to moderately decreased 45 - 59 mL/min/1.73m2 Moderately to severely decreased 30 - 44 mL/min/1.73m2 Severely decreased 15 - 29 mL/min/1.73m2 Kidney Failure < 15 mL/min/1.73m2 *Relative to young adult level Estimated glomerular filtration rate is determined by the 2020 CKD-EPI equation recommended by the National Kidney Foundation (A Unifying Approach to GFR Estimation: Recommendations of the NKF-ASK Task Force on Reassessing the Inclusion of Race in Diagnosing Kidney Disease, JASN 2020). The CKD-EPI equation should not be used for patients with unstable renal function and has not been validated in children and those over 70. Current interpretive data was last reviewed 2021. Blood 01/07/2025 2:28 AM CDT 01/07/2025 2:28 AM CDT us Maureen Martinez NP LAB BLOOD ORDERABLES Fin al Result ARON BHAT [address] [address] [place] [address] * aPTT (01/07/2025 2:28 AM CDT) Pathologist [facility] aPTT 29 28 - 38 sec Comment: Interpretive Data Heparin therapeutic range: 66.0 - 100.0 seconds. Range based on correlation with therapeutic heparin activity range of 0.3 - 0.7 Units/mL. Current interpretive data was last revised on 2023. Blood 01/07/2025 2:28 AM CDT 01/07/2025 2:28 AM CDT Jessica Kimble LABOR CUSTODIAN LAB BLOOD ORDERABLES Final Result Performing Organization Address [facility] Co de Phone Number ARON BHAT [address] [address] [facility] [place] [place] [address] * Protime-INR (01/07/2025 2:28 AM CDT) Pathologist [facility] PT 12.2 9.7 - 13.0 sec INR 1.13 0.90 - 1.20 ARON Comment: Interpretive data Oral anticoagulant therapeutic ranges: Venous thromboembolism prophylaxis or treatment: 2.0-3.0 CARDIOLOGY Standard range: 2.0-3.0 High-intensity range: 2.5-3.5 Refer to indication-specific guidelines for appropriate target ranges for prosthetic heart valve replacement. Current interpretive data was last revised on 2019. Blood 01/07/2025 2:28 AM CDT 01/07/2025 2:28 AM CDT Jessica Kimble LABOR CUSTODIAN LAB BLOOD ORDERABLES Final Result Performing Organization Address City/[facility] [address]/ZIP Co de Phone Number ARON BHAT [address] [address] [place] [address] * Phosphorus (01/07/2025 2:28 AM CDT) Pathologist [facility] Phosphorus, pl 2.9 2.3 - 4.5 mg/dL Blood 01/07/2025 2:28 AM CDT 01/07/2025 2:28 AM CDT Maureenyony Morales Michelle LABOR CUSTODIAN LAB BLOOD ORDERABLES Fin al Result Performing Organization Address [facility] [address]/[facility] de Phone Number ARON BHAT [address] [address] Department [place] [address] * (ABNORMAL) Bilirubin, direct (01/07/2025 2:28 AM CDT) Bilirubin, direct 0.8(H) 0.1 - 0.3 mg/dL Comment:Hemolysis present. R esults may be affected. Blood 01/07/2025 2:28 AM CDT 01/07/2025 2:28 AM CDT Maureen Martinez LABOR CUSTODIAN LAB BLOOD ORDERABLES Fin al Result Performing Organization Address [facility] de Phone Number ARON BHAT [address] [address] Department [place] [address] * (ABNORMAL) Comprehensive metabolic panel (01/07/2025 2:28 AM CDT) Sodium 135 135 - 145 mmol/L Potassium, pl 3.9 3.3 - 4.9 mmol/L [facility] Chloride 95(L) 97 - 110 mmol/L [facility] CO2 30 22 - 32 mmol/L [facility] Anion gap 10 2 - 15 mmol/L [facility] BUN 46(H) 6 - 25 mg/dL [facility] Creatinine 1.31(H) 0.80 - 1.30 mg/dL [facility] Comment:Icteric sample, test results may be affected. Glucose 140 70 - 199 mg/dL [facility] Comment: Interpretive Data Fasting glucose >/= 126 mg/dl is diagnostic for diabetes. Fasting is defined as no caloric intake for at least 8 hours. Fasting glucose between 100 mg/dl to 125 mg/dl is diagnostic of prediabetes. In a patient with classic symptoms of hyperglycemia or hyperglycemic crisis, a random glucose >/= 200 mg/dl is diagnostic for diabetes. In the absence of unequivocal hyperglycemia, results should be confirmed by repeat testing. The classification and Diagnosis of Diabetes Diabetes Care 202; 46: S19-S40. Current interpretive data was last revised 2022. Calcium 8.8 8.5 - 10.3 mg/dL [facility] Bilirubin, total 2.1(H) 0.1 - 1.2 mg/dL [facility] CH Protein, pl 6.0(L) 6.5 - 8.5 g/dL [facility] Albumin 3.5 3.5 - 5.0 g/dL [facility] Alk phos 179(H) 40 - 130 Units/L [facility] ALT 83(H) 7 - 55 Units/L [facility] AST 82(H) 10 - 50 Units/L [facility] Blood 01/07/2025 2:28 AM CDT 01/07/2025 2:28 AM CDT us Maureen Martinez NP LAB [place]LOOD [place] [address] [address] Department [place] [address] * (ABNORMAL) CBC without differential (01/07/2025 2:27 AM CDT) WBC 5.90 3.80 - 9.90 K/cumm Hgb 10.2(L) 13.0 - 17.5 g/dL [facility] Hct 30.2(L) 38.9 - 50.3 % [facility] Plt 117(L) 150 - 400 K/cumm [facility] MPV 10.5 9.1 - 12.3 fL [facility] CH RBC 3.44(L) 4.30 - 5.80 M/cumm [facility] CH MCV 87.8 81.3 - 96.4 fL [facility] CH MCH 29.7 27.1 - 33.3 pg [facility] CH MCHC 33.8 32.3 - 35.7 g/dL [facility] RDW CV 14.1 11.1 - 14.9 % [facility] CH RDW SD 45.0 35.7 - 48.1 fL [facility] NRBC abs 0.00 0.00 - 0.01 K/cumm [facility] Blood 01/07/2025 2:27 AM CDT 01/07/2025 2:27 AM CDT us Maureen Martinez LABOR CUSTODIAN LAB BLOOD ORDERABLES Fin al Result Performing Organization Address [facility] [address] [facility] Co de Phone Number ARON BHAT [address] [address] [facility] [place] [place] [address] * POCT glucose (01/06/2025 9:23 PM CDT) Glucose, POC 167 70 - 199 mg/dL POC Performer [id number] [facility] CH Blood 01/06/2025 9:23 PM CDT 01/06/2025 9:23 PM CDT us Angel [place] MD LAB POCT ORDERABLES - DEVICE Final Result Performing Organization Address [facility] [address] [facility] de Phone Number ARON BHAT [address] [address] [facility] [place] [place] [address] * POCT glucose (01/06/2025 5:43 PM CDT) Glucose, POC 192 70 - 199 mg/dL POC Performer [id number] [facility] CH Blood 01/06/2025 5:43 PM CDT 01/06/2025 5:43 PM CDT Angel [place] MD LAB POCT ORDERABLES - DEVICE Final Result Performing Organization Address [facility] [address] [facility] Co de Phone Number ARON BHAT [address] [address] [facility] [place] [place] [address] * POCT glucose (01/06/2025 12:16 PM CDT) Glucose, POC 139 70 - 199 mg/dL POC Performer [id number] [facility] CH Blood 01/06/2025 12:1 6 PM CDT 01/06/2025 12:16 PM CDT Angel [place] MD LAB POCT ORDERABLES - DEVICE Final Result ARON BHAT [address] [address] [place] [place] [address] * POCT glucose (01/06/2025 7:45 AM CDT) Glucose, POC 151 70 - 199 mg/dL POC Performer [id number] [facility] Blood 01/06/2025 7:45 AM CDT 01/06/2025 7:45 AM CDT Angel [place] MD LAB POCT ORDERABLES - DEVICE Final Result Performing Organization Address [facility] [address] [facility] Co de Phone Number ARON BHAT [address] [address] Department [place] [place] [address] * (ABNORMAL) eGFR (01/06/2025 6:16 AM CDT) eGFR 53(L) >=60 mL/min/1. 73 m2 Comment: Interpretive Data Reference Interval Normal >/= 90 mL/min/1.73m2 Mildly decreased* 60 - 89 mL/min/1.73m2 Mildly to moderately decreased 45 - 59 mL/min/1.73m2 Moderately to severely decreased 30 - 44 mL/min/1.73m2 Severely decreased 15 - 29 mL/min/1.73m2 Kidney Failure < 15 mL/min/1.73m2 *Relative to young adult level Estimated glomerular filtration rate is determined by the 2020 CKD-EPI equation recommended by the National Kidney Foundation (A Unifying Approach to GFR Estimation: Recommendations of the NKF-ASK Task Force on Reassessing the Inclusion of Race in Diagnosing Kidney Disease, JASN 202). The CKD-EPI equation should not be used for patients with unstable renal function and has not been validated in children and those over 70. Current interpretive data was last reviewed 2021. Blood 01/06/2025 6:16 AM CDT 01/06/2025 6:16 AM CDT Maureen Martinez LABOR CUSTODIAN LAB BLOOD ORDERABLES Fin al Result Performing Organization Address [facility] [address]/[facility] Co de Phone Number ARON BHAT [address] [address] Department [employer] [place] [address] * (ABNORMAL) CBC without differential (01/06/2025 6:16 AM CDT) WBC 7.22 3.80 - 9.90 K/cumm Hgb 10.6(L) 13.0 - 17.5 g/dL [facility] Hct 31.7(L) 38.9 - 50.3 % [facility] CH Plt 106(L) 150 - 400 K/cumm [facility] CH MPV 10.9 9.1 - 12.3 fL [facility] RBC 3.58(L) 4.30 - 5.80 M/cumm [facility] CH MCV 88.5 81.3 - 96.4 fL [facility] MCH 29.6 27.1 - 33.3 pg [facility] MCHC 33.4 32.3 - 35.7 g/dL [facility] CH RDW CV 14.2 11.1 - 14.9 % [facility] CH RDW SD 45.8 35.7 - 48.1 fL [facility] NRBC abs 0.02(H) 0.00 - 0.01 K/cumm [facility] CH Blood 01/06/2025 6:16 AM CDT 01/06/2025 6:16 AM CDT Maureen Martinez LABOR CUSTODIAN LAB BLOOD ORDERABLES Fin al Result Performing Organization Address City/[facility] [address]/ZIP Co de Phone Number ARON BHAT [address] Department [place] [employer] [place] [address] * (ABNORMAL) Renal function panel (01/06/2025 6:16 AM CDT) Sodium 134(L) 135 - 145 mmol/L Potassium, pl 3.4 3.3 - 4.9 mmol/L [facility] Chloride 94(L) 97 - 110 mmol/L [facility] CH CO2 30 22 - 32 mmol/L [facility] Anion gap 10 2 - 15 mmol/L [facility] BUN 47(H) 6 - 25 mg/dL [facility] Creatinine 1.36(H) 0.80 - 1.30 mg/dL [facility] Comment:Icteric sample, test results may be affected. Glucose 149 70 - 199 mg/dL [facility] Comment: Interpretive Data Fasting glucose >/= 126 mg/dl is diagnostic for diabetes. Fasting is defined as no caloric intake for at least 8 hours. Fasting glucose between 100 mg/dl to 125 mg/dl is diagnostic of prediabetes. In a patient with classic symptoms of hyperglycemia or hyperglycemic crisis, a random glucose >/= 200 mg/dl is diagnostic for diabetes. In the absence of unequivocal hyperglycemia, results should be confirmed by repeat testing. The classification and Diagnosis of Diabetes Diabetes Care 202; 46: S19-S40. Current interpretive data was last revised 2022. Calcium 8.9 8.5 - 10.3 mg/dL [facility] Phosphorus, pl 3.4 2.3 - 4.5 mg/dL [facility] Albumin 3.5 3.5 - 5.0 g/dL [facility] Blood 01/06/2025 6:16 AM CDT 01/06/2025 6:16 AM CDT us Maureen Martinez NP LAB BLOOD ORDERABLES [facility] al Result [facility] [address] [place] [address] * XR Chest 1 View - Portable - in AM (01/06/2025 4:28 AM CDT) Anatomical Region Laterality Modality Body, Chest N/A Computed Radiogr aphy 01/06/2025 8:24 AM CDT Impressions 01/06/2025 8:24 AM CDT Cardiomegaly with congestion. Bilateral lower lobe atelectasis. Electronically signed by: Josh Renteria M.D. Narrative 01/06/2025 8:24 AM CDT EXAMINATION: XR CHEST 1 VIEW DATE: 01/06/2025 3:50 AM HISTORY: s/p cardiac surg FINDINGS: Sternal wires and left atrial appendage clip are present. There is no pneumothorax or large effusion. The heart is enlarged. Pulmonary vascular congestion is present. There is bilateral lower lobe atelectasis. Procedure Note Josh Renteria MD - 01/06/2025 EXAMINATION: XR CHEST 1 VIEW DATE: 01/06/2025 3:50 AM HISTORY: s/p cardiac surg FINDINGS: Sternal wires and left atrial appendage clip are present. There is no pneumothorax or large effusion. The heart is enlarged. Pulmonary vascular congestion is present. There is bilateral lower lobe atelectasis. IMPRESSION: Cardiomegaly with congestion. Bilateral lower lobe atelectasis. Electronically signed by: Josh Renteria M.D. us Maureen Martinez LABOR CUSTODIAN IMG XR PROCEDURES Final Result * POCT glucose (01/05/2025 9:44 PM CDT) Glucose, POC 169 70 - 199 mg/dL POC Performer [id number] [facility] Blood 01/05/2025 9:44 PM CDT 01/05/2025 9:44 PM CDT Angel [place] MD LAB POCT ORDERABLES - DEVICE Final Result Performing Organization Address [facility] Co de Phone Number ARON [address] [place] [address] * POCT glucose (01/05/2025 4:58 PM CDT) Glucose, POC 148 70 - 199 mg/dL POC Performer [id number] [facility] Blood 01/05/2025 4:58 PM CDT 01/05/2025 4:58 PM CDT Angel [place] MD LAB POCT ORDERABLES - DEVICE Final Result Performing Organization Address [facility] [address] [facility] Co de Phone Number [facility] [address] [address] Department [place] [employer] [place] [address] * POCT glucose (01/05/2025 12:25 PM CDT) Glucose, POC 109 70 - 199 mg/dL POC Performer [id number] [facility] Blood 01/05/2025 12:2 5 PM CDT 01/05/2025 12:25 PM CDT Angel [place] MD LAB POCT ORDERABLES - DEVICE Final Result Performing Organization Address [facility] [address] [facility] Co de Phone Number ARON BHAT [address] [address] [place] [address] * ECG 12 lead (01/05/2025 12:21 PM CDT) 01/05/2025 12:2 1 PM CDT Narrative [facility] - 01/05/2025 1:36 PM CDT Vent Rate: 82 bpm RR Interval: 731 msec CO Interval: 218 msec QRS Duration: 97 msec QT Interval: 423 msec QTC Interval: 461 msec P-R-T Independence: 51 - -15 - 88 degrees IMPRESSION: SINUS RHYTHM WITH FIRST DEGREE AV BLOCK POSSIBLE INFERIOR MYOCARDIAL INFARCTION , PROBABLY OLD ST-depression in V2, V3, consider ischemia ABNORMAL ECG Electronically Signed By: Dr. Emiliano Cuello [facility] Brianna Arreola LABOR CUSTODIAN ECG ORDERABLES Final Res ult Performing Organization Address [facility] [address] [facility] Co de Phone Number [facility] * POCT glucose (01/05/2025 7:55 AM CDT) Glucose, POC 90 70 - 199 mg/dL POC Performer [id number] [facility] Blood 01/05/2025 7:55 AM CDT 01/05/2025 7:55 AM CDT Angel [place] MD LAB POCT ORDERABLES - DEVICE Final Result Performing Organization Address [facility] [address] [facility] Co de Phone Number ARON BHAT [address] [address] Department [employer] [place] [address] * XR Chest 1 View - Portable - in AM (01/05/2025 5:55 AM CDT) Anatomical Region Laterality Modality Body, Chest N/A Computed Radiogr aphy 01/05/2025 9:07 AM CDT Impressions 01/05/2025 9:07 AM CDT Postop change with right lower lobe and lingular subsegmental atelectasis. Electronically signed by: Talisha Duggan M.D. Narrative 01/05/2025 9:07 AM CDT Examination: XR CHEST 1 VIEW Date: 01/05/2025 4:45 AM History: s/p cardiac surg Comparison: 01/04/2025. Findings: Normal heart size, sternotomy, left atrial appendage clip is seen. Right IJ catheter noted in SVC. Subsegmental atelectasis is seen in the right lower lobe and lingula right. Diaphragmatic elevation is unchanged. No pneumothorax is seen. Procedure Note Talisha Duggan MD - 01/05/2025 Examination: XR CHEST 1 VIEW Date: 01/05/2025 4:45 AM History: s/p cardiac surg Comparison: 01/04/2025. Findings: Normal heart size, sternotomy, left atrial appendage clip is seen. Right IJ catheter noted in SVC. Subsegmental atelectasis is seen in the right lower lobe and lingula right. Diaphragmatic elevation is unchanged. No pneumothorax is seen. IMPRESSION: Postop change with right lower lobe and lingular subsegmental atelectasis. Electronically signed by: Talisha Duggan M.D. Maureen Martinez LABOR CUSTODIAN IMG XR PROCEDURES Final Result * POCT glucose (01/05/2025 5:37 AM CDT) Glucose, POC 106 70 - 199 mg/dL POC Performer [id number] ARON Blood 01/05/2025 5:37 AM CDT 01/05/2025 5:37 AM CDT us Angel [place] MD LAB POCT ORDERABLES - DEVICE Final Result Performing Organization Address [facility] Co de Phone Number ARON BHAT [address] Department [place] [employer] [place] [address] * (ABNORMAL) eGFR (01/05/2025 5:32 AM CDT) eGFR 54(L) >=60 mL/min/1. 73 m2 Comment: Interpretive Data Reference Interval Normal >/= 90 mL/min/1.73m2 Mildly decreased* 60 - 89 mL/min/1.73m2 Mildly to moderately decreased 45 - 59 mL/min/1.73m2 Moderately to severely decreased 30 - 44 mL/min/1.73m2 Severely decreased 15 - 29 mL/min/1.73m2 Kidney Failure < 15 mL/min/1.73m2 *Relative to young adult level Estimated glomerular filtration rate is determined by the 2020 CKD-EPI equation recommended by the National Kidney Foundation (A Unifying Approach to GFR Estimation: Recommendations of the NKF-ASK Task Force on Reassessing the Inclusion of Race in Diagnosing Kidney Disease, JASN 2020). The CKD-EPI equation should not be used for patients with unstable renal function and has not been validated in children and those over 70. Current interpretive data was last reviewed 2021. Blood 01/05/2025 5:32 AM CDT 01/05/2025 6:34 AM CDT us Maureen Martinez LABOR CUSTODIAN LAB BLOOD ORDERABLES Fin al Result Performing Organization Address [facility] Co de Phone Number ARON BHAT [address] [address] Department of Laboratories [place], [place] [id number] * (ABNORMAL) CBC without differential (01/05/2025 5:32 AM CDT) WBC 5.52 3.80 - 9.90 K/cumm Hgb 9.7(L) 13.0 - 17.5 g/dL [facility] Hct 29.9(L) 38.9 - 50.3 % [facility] Plt 90(L) 150 - 400 K/cumm [facility] MPV 11.4 9.1 - 12.3 fL [facility] RBC 3.33(L) 4.30 - 5.80 M/cumm [facility] MCV 89.8 81.3 - 96.4 fL [facility] MCH 29.1 27.1 - 33.3 pg [facility] MCHC 32.4 32.3 - 35.7 g/dL [facility] RDW CV 14.1 11.1 - 14.9 % [facility] RDW SD 45.7 35.7 - 48.1 fL [facility] NRBC abs 0.00 0.00 - 0.01 K/cumm [facility] Blood 01/05/2025 5:32 AM CDT 01/05/2025 5:46 AM CDT Maureen Martinez LABOR CUSTODIAN LAB BLOOD ORDERABLES Fin al Result Performing Organization Address [facility] de Phone Number [facility] [address] [address] [place] [address] * Phosphorus (01/05/2025 5:32 AM CDT) Phosphorus, pl 3.5 2.3 - 4.5 mg/dL Blood 01/05/2025 5:32 AM CDT 01/05/2025 5:47 AM CDT Maureen Martinez NP LAB BLOOD ORDERABLES Fin al Result Performing Organization Address [facility] de Phone Number [facility] [address] [address] [facility] [place] [place] [address] * Magnesium (01/05/2025 5:32 AM CDT) Magnesium 2.0 1.4 - 2.5 mg/dL Blood 01/05/2025 5:32 AM CDT 01/05/2025 5:46 AM CDT Maureen Martinez LABOR CUSTODIAN LAB BLOOD ORDERABLES Fin al Result Performing Organization Address [facility] de Phone Number ARON BHAT [address] [address] Department [place] [place] [address] * (ABNORMAL) Bilirubin, direct (01/05/2025 5:32 AM CDT) Bilirubin, direct 1.1(H) 0.1 - 0.3 mg/dL Blood 01/05/2025 5:32 AM CDT 01/05/2025 5:47 AM CDT us Maureen Martinez LABOR CUSTODIAN LAB BLOOD ORDERABLES Fin al Result Performing Organization Address [facility] Co de Phone Number ARON BHAT [address] [address] Department [place] [place] [address] * (ABNORMAL) Comprehensive metabolic panel (01/05/2025 5:32 AM CDT) Sodium 138 135 - 145 mmol/L Potassium, pl 3.2(L) 3.3 - 4.9 mmol/L [facility] Chloride 97 97 - 110 mmol/L [facility] CH CO2 31 22 - 32 mmol/L [facility] CH Anion gap 10 2 - 15 mmol/L [facility] BUN 43(H) 6 - 25 mg/dL [facility] Creatinine 1.35(H) 0.80 - 1.30 mg/dL [facility] Comment:Icteric sample, test results may be affected. Glucose 109 70 - 199 mg/dL [facility] Comment: Interpretive Data Fasting glucose >/= 126 mg/dl is diagnostic for diabetes. Fasting is defined as no caloric intake for at least 8 hours. Fasting glucose between 100 mg/dl to 125 mg/dl is diagnostic of prediabetes. In a patient with classic symptoms of hyperglycemia or hyperglycemic crisis, a random glucose >/= 200 mg/dl is diagnostic for diabetes. In the absence of unequivocal hyperglycemia, results should be confirmed by repeat testing. The classification and Diagnosis of Diabetes Diabetes Care 2021; 46: S19-S40. Current interpretive data was last revised 2022. Calcium 8.7 8.5 - 10.3 mg/dL [facility] Bilirubin, total 2.1(H) 0.1 - 1.2 mg/dL [facility] CH Protein, pl 5.5(L) 6.5 - 8.5 g/dL [facility] CH Albumin 3.1(L) 3.5 - 5.0 g/dL [facility] CH Alk phos 209(H) 40 - 130 Units/L [facility] CH ALT 76(H) 7 - 55 Units/L [facility] CH AST 89(H) 10 - 50 Units/L [facility] CH Blood 01/05/2025 5:32 AM CDT 01/05/2025 5:47 AM CDT us Maureen Martinez LABOR CUSTODIAN LAB BLOOD ORDERABLES Fin al Result Performing Organization Address [facility] Co de Phone Number ARON BHAT [address] [address] [facility] [place] [place] [address] * POCT glucose (01/05/2025 2:13 AM CDT) Glucose, POC 104 70 - 199 mg/dL POC Performer [id number] [facility] Blood 01/05/2025 2:13 AM CDT 01/05/2025 2:13 AM CDT Angel [place] MD LAB POCT ORDERABLES - DEVICE Final Result Performing Organization Address [facility] de Phone Number ARON BHAT [address] [address] [facility] [employer] [place], [place] [id number] * POCT glucose (01/04/2025 8:19 PM CDT) Glucose, POC 153 70 - 199 mg/dL POC Performer [id number] [facility] Blood 01/04/2025 8:19 PM CDT 01/04/2025 8:19 PM CDT Angel [place] MD LAB POCT ORDERABLES - DEVICE Final Result Performing Organization Address [facility] [address] [facility] Co de Phone Number ARON BHAT [address] [address] Department [employer] [place], [place] [id number] * POCT glucose (01/04/2025 5:13 PM CDT) Glucose, POC 96 70 - 199 mg/dL POC Performer [id number] [facility] CH Blood 01/04/2025 5:13 PM CDT 01/04/2025 5:13 PM CDT us Angel [place] MD LAB POCT ORDERABLES - DEVICE Final Result Performing Organization Address City/[facility] [address] [facility] Co de Phone Number ARON BHAT [address] [address] [facility] [place] [place] [address] * POCT glucose (01/04/2025 11:29 AM CDT) Glucose, POC 110 70 - 199 mg/dL POC Performer [id number] [facility] CH Blood 01/04/2025 11:2 9 AM CDT 01/04/2025 11:29 AM CDT us Angel [place] MD LAB POCT ORDERABLES - DEVICE Final Result Performing Organization Address [facility] [address] [facility] Co de Phone Number ARON BHAT [address] [address] [facility] [employer] [place], [place] [id number] * POCT glucose (01/04/2025 7:35 AM CDT) Glucose, POC 118 70 - 199 mg/dL POC Performer [id number] [facility] CH Blood 01/04/2025 7:35 AM CDT 01/04/2025 7:35 AM CDT us Angel [place] MD LAB POCT ORDERABLES - DEVICE Final Result Performing Organization Address City/[facility] [address] [facility] Co de Phone Number ARON BHAT [address] [address] [facility] [place] [place] [address] * Critical Care (01/04/2025 7:24 AM CDT) Narrative Akanksha Vaca DO - 01/04/2025 7:24 AM CDT Akanksha Vaca DO 01/04/2025 12:48 PM Critical Care Performed by: Venus Iqbal NP Authorized by: Venus Iqbal NP CRITICAL CARE: Team: ELISA Shift: AM Level of Billing: Subsequent Hospital Visit Level 3 My time spent with this patient was 30 minutes: Critical Provider Statement: I have seen and examined the patient on this day of service. I have reviewed and confirmed the history, physical exam, laboratory, and radiographic data as documented in the ICU note. I have reviewed and discussed my treatment plan with the patient's team and other medical/client support consultant staff. This time was in addition to and separate from care provided by other practitioners on this day of service. I spent time reviewing and interpreting data from bedside monitors, laboratory results, and imaging, I spent time discussing the management of this critically ill patient with consultants and the medical staff and I spent time documenting in the medical record Venus Iqbal NP IN CLINIC/BEDSIDE ORDERABLES Final Result * XR Chest 1 View - Portable - in AM (01/04/2025 6:06 AM CDT) Anatomical Region Laterality Modality Body, Chest N/A Computed Radiogr aphy 01/04/2025 9:04 AM CDT Impressions 01/04/2025 9:04 AM CDT Findings as described above. Electronically signed by: Sangeeta Harmon M.D. Narrative 01/04/2025 9:04 AM CDT EXAMINATION: XR CHEST 1 VIEW HISTORY: The patient is a 79-year-old male who has had cardiac surgery. Comparison made with previous study dated 01/03/2025. TECHNIQUE: AP portable view of the chest. FINDINGS: Cardiomegaly with aortic atherosclerosis. Findings of pulmonary vascular congestion. No focal consolidation. The distal tip of the retracted Juniata-Maryanne catheter is at the cavoatrial junction. Interval removal of bilateral thoracostomy tubes. Procedure Note Sangeeta Harmon MD - 01/04/2025 EXAMINATION: XR CHEST 1 VIEW HISTORY: The patient is a 79-year-old male who has had cardiac surgery. Comparison made with previous study dated 01/03/2025. TECHNIQUE: AP portable view of the chest. FINDINGS: Cardiomegaly with aortic atherosclerosis. Findings of pulmonary vascular congestion. No focal consolidation. The distal tip of the retracted Juniata-Maryanne catheter is at the cavoatrial junction. Interval removal of bilateral thoracostomy tubes. IMPRESSION: Findings as described above. Electronically signed by: Sangeeta Harmon M.D. Maureen Martinez LABOR CUSTODIAN IMG XR PROCEDURES Final Result * Calcium, ionized, whole blood (01/04/2025 4:34 AM CDT) Ca, ionized, bld 4.61 4.50 - 5.10 mg/dL Blood 01/04/2025 4:34 AM CDT 01/04/2025 4:37 AM CDT Maureen Martinez NP LAB BLOOD ORDERABLES Fin al Result ARON [address] [address] Department of Laboratories [place] [phone] * eGFR (01/04/2025 4:34 AM CDT) eGFR 65 >=60 mL/min/1. 73 m2 Comment: Interpretive Data Reference Interval Normal >/= 90 mL/min/1.73m2 Mildly decreased* 60 - 89 mL/min/1.73m2 Mildly to moderately decreased 45 - 59 mL/min/1.73m2 Moderately to severely decreased 30 - 44 mL/min/1.73m2 Severely decreased 15 - 29 mL/min/1.73m2 Kidney Failure < 15 mL/min/1.73m2 *Relative to young adult level Estimated glomerular filtration rate is determined by the 2020 CKD-EPI equation recommended by the National Kidney Foundation (A Unifying Approach to GFR Estimation: Recommendations of the NKF-ASK Task Force on Reassessing the Inclusion of Race in Diagnosing Kidney Disease, JASN 202). The CKD-EPI equation should not be used for patients with unstable renal function and has not been validated in children and those over 70. Current interpretive data was last reviewed 2021. Blood 01/04/2025 4:34 AM CDT 01/04/2025 4:38 AM CDT Maureen Martinez LABOR CUSTODIAN LAB BLOOD ORDERABLES Fin al Result Performing Organization Address [facility] Co de Phone Number ARON [address] Department [employer] [place] [address] * (ABNORMAL) CBC without differential (01/04/2025 4:34 AM CDT) WBC 5.32 3.80 - 9.90 K/cumm Hgb 10.0(L) 13.0 - 17.5 g/dL [facility] CH Hct 30.1(L) 38.9 - 50.3 % [facility] CH Plt 80(L) 150 - 400 K/cumm [facility] CH MPV 10.8 9.1 - 12.3 fL [facility] CH RBC 3.38(L) 4.30 - 5.80 M/cumm [facility] CH MCV 89.1 81.3 - 96.4 fL [facility] CH MCH 29.6 27.1 - 33.3 pg [facility] CH MCHC 33.2 32.3 - 35.7 g/dL [facility] CH RDW CV 14.5 11.1 - 14.9 % [facility] CH RDW SD 46.6 35.7 - 48.1 fL [facility] CH NRBC abs 0.00 0.00 - 0.01 K/cumm [facility] CH Blood 01/04/2025 4:34 AM CDT 01/04/2025 4:39 AM CDT Maureen Martinez LABOR CUSTODIAN LAB BLOOD ORDERABLES Fin al Result Performing Organization Address [facility] [address] [facility] Co de Phone Number ARON BHAT [address] [address] Department [place] [employer] [place] [address] * Magnesium (01/04/2025 4:34 AM CDT) Magnesium 2.1 1.4 - 2.5 mg/dL Blood 01/04/2025 4:34 AM CDT 01/04/2025 4:38 AM CDT Maureen Martinez LABOR CUSTODIAN LAB BLOOD ORDERABLES Fin al Result Performing Organization Address [facility] [address] [facility] Co de Phone Number ARON [address] [address] [facility] [place] [place] [address] * (ABNORMAL) Hepatic function panel (01/04/2025 4:34 AM CDT) Bilirubin, total 2.2(H) 0.1 - 1.2 mg/dL Bilirubin, direct 1.2(H) 0.1 - 0.3 mg/dL [facility] CH Protein, pl 5.3(L) 6.5 - 8.5 g/dL [facility] CH Albumin 3.1(L) 3.5 - 5.0 g/dL [facility] CH Alk phos 215(H) 40 - 130 Units/L [facility] CH ALT 50 7 - 55 Units/L [facility] CH AST 65(H) 10 - 50 Units/L [facility] CH Blood 01/04/2025 4:34 AM CDT 01/04/2025 11:48 AM CDT Venus Iqbal LABOR CUSTODIAN LAB BLOOD ORDERABL ES Final Result Performing Organization Address [facility] de Phone Number ARON [address] [address] Department [place] [place] [address] * (ABNORMAL) Renal function panel (01/04/2025 4:34 AM CDT) Sodium 137 135 - 145 mmol/L Potassium, pl 3.6 3.3 - 4.9 mmol/L [facility] CH Chloride 100 97 - 110 mmol/L [facility] CH CO2 26 22 - 32 mmol/L [facility] CH Anion gap 11 2 - 15 mmol/L [facility] CH BUN 32(H) 6 - 25 mg/dL [facility] CH Creatinine 1.15 0.80 - 1.30 mg/dL [facility] CH Comment:Icteric sample, test results may be affected. Glucose 136 70 - 199 mg/dL [facility] CH Comment: Interpretive Data Fasting glucose >/= 126 mg/dl is diagnostic for diabetes. Fasting is defined as no caloric intake for at least 8 hours. Fasting glucose between 100 mg/dl to 125 mg/dl is diagnostic of prediabetes. In a patient with classic symptoms of hyperglycemia or hyperglycemic crisis, a random glucose >/= 200 mg/dl is diagnostic for diabetes. In the absence of unequivocal hyperglycemia, results should be confirmed by repeat testing. The classification and Diagnosis of Diabetes Diabetes Care 2021; 46: S19-S40. Current interpretive data was last revised 2022. Calcium 8.5 8.5 - 10.3 mg/dL [facility] Phosphorus, pl 3.0 2.3 - 4.5 mg/dL [facility] Albumin 3.1(L) 3.5 - 5.0 g/dL [facility] Blood 01/04/2025 4:34 AM CDT 01/04/2025 4:38 AM CDT us Maureen Martinez NP LAB BLOOD ORDERABLES Fin al Result ARON BHAT [address] [address] Department [employer] [place] [address] * POCT glucose (01/03/2025 7:55 PM CDT) [facility] Glucose, POC 131 70 - 199 mg/dL POC Performer [id number] [facility] Blood 01/03/2025 7:55 PM CDT 01/03/2025 7:55 PM CDT us Angel [place] MD LAB POCT ORDERABLES - DEVICE Final Result ARON BHAT [address] [address] Department [employer] [place] [address] * Critical Care (01/03/2025 7:51 PM CDT) Narrative Solis Wills MD - 01/03/2025 7:51 PM CDT Solis Wills MD 01/04/2025 11:59 PM Critical Care Performed by: Stan Thornton PA Authorized by: Stan Thornton PA CRITICAL CARE: Team: ELISA Shift: PM Level of Billing: Subsequent Hospital Visit Level 3 My time spent with this patient was 35 minutes: Critical Provider Statement: I have seen and examined the patient on this day of service. I have reviewed and confirmed the history, physical exam, laboratory, and radiographic data as documented in the ICU note. I have reviewed and discussed my treatment plan with the patient's team and other medical/client support consultant staff. This time was in addition to and separate from care provided by other practitioners on this day of service. I spent time reviewing and interpreting data from bedside monitors, laboratory results, and imaging, I spent time discussing the management of this critically ill patient with consultants and the medical staff and I spent time documenting in the medical record us Stan WOODY IN CLINIC/BEDSIDE ORDERABLES Fin al Result * POCT glucose (01/03/2025 4:44 PM CDT) Glucose, POC 133 70 - 199 mg/dL POC Performer [id number] ARON Blood 01/03/2025 4:44 PM CDT 01/03/2025 4:44 PM CDT us Angel [place] MD LAB POCT ORDERABLES - DEVICE Final Result Performing Organization Address [facility] Co de Phone Number ARON HOME [address] [address] [place] [address] * Calcium, ionized, whole blood (01/03/2025 2:19 PM CDT) Ca, ionized, bld 4.54 4.50 - 5.10 mg/dL Blood 01/03/2025 2:19 PM CDT 01/03/2025 2:28 PM CDT us Angel [place] MD LAB BLOOD ORDERABLES Final R esult Performing Organization Address [place]/[facility] [facility] [address]/ZIP Co de Phone Number ARON [address] [address] Department [place] [place] [address] * (ABNORMAL) eGFR (01/03/2025 2:19 PM CDT) Pathologist [facility] eGFR 55(L) >=60 mL/min/1. 73 m2 Comment: Interpretive Data Reference Interval Normal >/= 90 mL/min/1.73m2 Mildly decreased* 60 - 89 mL/min/1.73m2 Mildly to moderately decreased 45 - 59 mL/min/1.73m2 Moderately to severely decreased 30 - 44 mL/min/1.73m2 Severely decreased 15 - 29 mL/min/1.73m2 Kidney Failure < 15 mL/min/1.73m2 *Relative to young adult level Estimated glomerular filtration rate is determined by the 2020 CKD-EPI equation recommended by the National Kidney Foundation (A Unifying Approach to GFR Estimation: Recommendations of the NKF-ASK Task Force on Reassessing the Inclusion of Race in Diagnosing Kidney Disease, JASN 2020). The CKD-EPI equation should not be used for patients with unstable renal function and has not been validated in children and those over 70. Current interpretive data was last reviewed 2021. Blood 01/03/2025 2:19 PM CDT 01/03/2025 2:44 PM CDT us Angel [place] MD LAB BLOOD ORDERABLES Final R esult [facility] [address] [address] [place] [address] * (ABNORMAL) CBC without differential (01/03/2025 2:19 PM CDT) [facility] WBC 6.23 3.80 - 9.90 K/cumm Hgb 11.2(L) 13.0 - 17.5 g/dL [facility] Hct 34.5(L) 38.9 - 50.3 % [facility] Plt 105(L) 150 - 400 K/cumm [facility] MPV 10.7 9.1 - 12.3 fL [facility] RBC 3.86(L) 4.30 - 5.80 M/cumm [facility] MCV 89.4 81.3 - 96.4 fL [facility] MCH 29.0 27.1 - 33.3 pg [facility] MCHC 32.5 32.3 - 35.7 g/dL [facility] RDW CV 14.9 11.1 - 14.9 % [facility] RDW SD 48.5(H) 35.7 - 48.1 fL [facility] NRBC abs 0.00 0.00 - 0.01 K/cumm [facility] Blood 01/03/2025 2:19 PM CDT 01/03/2025 2:28 PM CDT Angel [place] MD LAB BLOOD ORDERABLES Final R esult Performing Organization Address City/[facility] [address]/ZIP Co de Phone Number [facility] [address] [address] Department [place] [place] [address] * Magnesium (01/03/2025 2:19 PM CDT) [facility] Magnesium 2.1 1.4 - 2.5 mg/dL Blood 01/03/2025 2:19 PM CDT 01/03/2025 2:28 PM CDT nAgel [place] MD LAB BLOOD ORDERABLES Final R esult Performing Organization Address City/[facility] [address]/ZIP Co de Phone Number [facility] [address] [address] Department [place] [place] [address] * (ABNORMAL) Basic metabolic panel (01/03/2025 2:19 PM CDT) Pathologist [facility] Sodium 137 135 - 145 mmol/L Potassium, pl 3.6 3.3 - 4.9 mmol/L [facility] Chloride 99 97 - 110 mmol/L [facility] CO2 26 22 - 32 mmol/L [facility] Anion gap 12 2 - 15 mmol/L [facility] BUN 31(H) 6 - 25 mg/dL [facility] Creatinine 1.33(H) 0.80 - 1.30 mg/dL [facility] Comment:Icteric sample, test results may be affected. Glucose 187 70 - 199 mg/dL [facility] Comment: Interpretive Data Fasting glucose >/= 126 mg/dl is diagnostic for diabetes. Fasting is defined as no caloric intake for at least 8 hours. Fasting glucose between 100 mg/dl to 125 mg/dl is diagnostic of prediabetes. In a patient with classic symptoms of hyperglycemia or hyperglycemic crisis, a random glucose >/= 200 mg/dl is diagnostic for diabetes. In the absence of unequivocal hyperglycemia, results should be confirmed by repeat testing. The classification and Diagnosis of Diabetes Diabetes Care 2021; 46: S19-S40. Current interpretive data was last revised 2022. Calcium 9.0 8.5 - 10.3 mg/dL [facility] Blood 01/03/2025 2:19 PM CDT 01/03/2025 2:28 PM CDT Angel [place] MD LAB BLOOD ORDERABLES Final R esult Performing Organization Address [facility] [address]/[facility] Co de Phone Number ARON [address] [place] [address] * POCT glucose (01/03/2025 12:28 PM CDT) Glucose, POC 127 70 - 199 mg/dL POC Performer [id number] [facility] Blood 01/03/2025 12:2 8 PM CDT 01/03/2025 12:28 PM CDT Angel [place] MD LAB POCT ORDERABLES - DEVICE Final Result Performing Organization Address [facility] [address]/[facility] Co de Phone Number [facility] [address] [place] [address] * (ABNORMAL) Protime-INR (01/03/2025 11:13 AM CDT) PT 13.2(H) 9.7 - 13.0 sec INR 1.22(H) 0.90 - 1.20 [facility] Comment: Interpretive data Oral anticoagulant therapeutic ranges: Venous thromboembolism prophylaxis or treatment: 2.0-3.0 CARDIOLOGY Standard range: 2.0-3.0 High-intensity range: 2.5-3.5 Refer to indication-specific guidelines for appropriate target ranges for prosthetic heart valve replacement. Current interpretive data was last revised on 2019. Blood 01/03/2025 11:1 3 AM CDT 01/03/2025 11:17 AM CDT Venus Johnson Farida MADDEN LAB BLOOD ORDERABL ES Final Result Performing Organization Address [facility] [address] [facility] Co de Phone Number ARON BHAT [address] [address] [facility] [place] [place] [address] * (ABNORMAL) Lactate dehydrogenase (LD) (01/03/2025 11:13 AM CDT) Lactate dehydrogenase (LDH) 316(H) 100 - 250 Units/L Blood 01/03/2025 11:1 3 AM CDT 01/03/2025 11:16 AM CDT Venus Elizabeth Iqbal NP LAB BLOOD ORDERABL ES Final Result Performing Organization Address [facility] de Phone Number ARON HBAT [address] [address] [facility] [place] [employer] [place] [address] * (ABNORMAL) Haptoglobin (01/03/2025 11:13 AM CDT) Haptoglobin 208(H) 30 - 200 mg/dL Comment:Hemolysis present. R esults may be affected. Blood 01/03/2025 11:1 3 AM CDT 01/03/2025 11:16 AM CDT Venus Elizabeth Iqbal NP LAB BLOOD ORDERABL ES Final Result Performing Organization Address [facility] [address]/[facility] de Phone Number ARON BHAT [address] [address] [facility] [employer] [place], [place] [id number] * Clinical pathology report (01/03/2025 11:11 AM CDT) Miscellaneous 01/03/2025 11: 11 AM CDT 01/03/2025 1:00 PM CDT Narrative 01/03/2025 2:10 PM CDT EPIC results best viewed via link to PDF [facility] Department of Pathology [address] [place] [id number] Final Report Note to Patients: This report may contain a detailed description of human tissue sent by a health care provider to the laboratory for pathologic evaluation. The content of this report is essential for diagnosis and may provide important critical findings. This information may be unfamiliar to patients to review without a medical professional present. It is advised that the patient review this report in the presence of a health care provider who can answer questions and explain the details. Patient Name: DENISE JAMES Address: [address] [place] [address], [place] [address] Gender: M : 1945 (Age: 79) Service: Cardiothoracic Location: [facility] Hospital #: [id number] Patient Type: [facility] Taken: 01/03/2025 Received: 01/03/2025 Accessioned: 01/03/2025 Physician(s): CLAUDIA Rodriguez Specimen(s) Received A: Blood Peripheral Blood Smear ReviewReported:01/03/2025 Note is made of prior smear review. RBC morphology is relatively unremarkable. Leukocytes are present typical numbers and not demonstrate morphologic abberation. The platelet count appears moderately diminished. Evidence of platelet clumping or a significant schistocyte population is not seen. Manual differential- Neutrophils 84%; lymphocytes 8%; monocytes 6%; eosinophils 2% Interpretation: Peripheral smear review- Normochromic normocytic anemia with minimal anisopoikilocytosis Thrombocytopenia, moderate; platelet clumping and significant schistocyte population not demonstrated Sandee Khalil M.D.Report Electronically Reviewed and Signed Out By Sandee Khalil M.D. 01/03/2025 14:09:22 The performance characteristics of some immunohistochemical stains, fluorescence in-situ hybridization tests and immunophenotyping by flow cytometry cited in this report (if any) were determined by the Surgical Pathology Department at [facility] as part of an ongoing quality assurance practice manager program and in compliance with federally mandated regulations drawn from the Clinical Laboratory Improvement Act of 1988 (CLIA '88). Some of these tests rely on the use of analyte specific reagents and are subject to specific labeling requirements by the US Food and Drug Administration. Such diagnostic tests may only be performed in a facility that is certified by the Department of Health and Human Services as a high complexity laboratory under CLIA '88. The FDA has determined that such clearance or approval is not necessary. This test is used for clinical purposes. It should not be regarded as investigational or for research. Nevertheless, federal rules concerning the medical use of analyte specific reagents require that the following disclaimer be attached to the report: This test was developed and its performance characteristics determined by the Surgical Pathology Department [facility]. It has not been cleared or approved by the U. S. Food and Drug Administration. REPORT IMAGES AND SCANNED DOCUMENTS, IF INCLUDED, ONLY VIEWABLE IN PDF VERSION OF REPORTe o Venus Iqbal NP LAB PATHOLOGY JEANNEBill FLOR Final Result * Critical Care (01/03/2025 8:06 AM CDT) Narrative Gayathri Braga MD - 01/03/2025 8:06 AM CDT Gayathri Braga MD 01/03/2025 6:26 PM Critical Care Performed by: Venus Iqbal NP Authorized by: Venus Iqbal NP CRITICAL CARE: Team: ELISA Shift: AM Level of Billing: Critical Care My time spent with this patient was 80 minutes: Critical Provider Statement: I have seen and examined the patient on this day of service. I have reviewed and confirmed the history, physical exam, laboratory and radiologic data as documented in the signed ICU note. I have reviewed and discussed my treatment plan with the ICU team and other medical/client support consultant staff, making frequent assessments and decisions regarding this patient's complex medical care. Critical Care time was exclusive of time spent performing separately billed procedures, treating other patients, and teaching. This time was in addition to and separate from critical care provided by other practitioners in my group on this day of service. Critical Care was necessary to treat or prevent imminent or life-threatening deterioration of the following conditions: I spent time reviewing and interpreting data from bedside monitors, laboratory results, and imaging, I spent time discussing the management of this critically ill patient with consultants and the medical staff and I spent time documenting in the medical record Venus Iqbal NP IN CLINIC/BEDSIDE ORDERABLES Final Result * POCT glucose (01/03/2025 7:51 AM CDT) Glucose, POC 135 70 - 199 mg/dL POC Performer [id number] ARON BHAT Blood 01/03/2025 7:51 AM CDT 01/03/2025 7:51 AM CDT Angel [place] MD LAB POCT ORDERABLES - DEVICE Final Result LETIBERTO [address] [address] [place] [address] * XR Chest 1 View - Portable - in AM (01/03/2025 5:46 AM CDT) Anatomical Region Laterality Modality Body, Chest N/A Computed Radiogr aphy 01/03/2025 8:29 AM CDT Impressions 01/03/2025 8:29 AM CDT Findings as described above. Electronically signed by: Sangeeta Harmon M.D. Narrative 01/03/2025 8:29 AM CDT EXAMINATION: XR CHEST 1 VIEW HISTORY: The patient is a 79-year-old male who has had cardiac surgery. Comparison made with the previous study dated 01/02/2025. TECHNIQUE: AP portable view of the chest. FINDINGS: Bilateral thoracostomy tubes and mediastinal drain in place. The tip of the Juniata-Maryanne catheter is in the undivided main pulmonary artery. Ill-defined left lower lobe infiltrate with the remainder of the lungs being clear. Heart not enlarged. Mild degree of vascular congestion. Procedure Note Sangeeta Harmon MD - 01/03/2025 EXAMINATION: XR CHEST 1 VIEW HISTORY: The patient is a 79-year-old male who has had cardiac surgery. Comparison made with the previous study dated 01/02/2025. TECHNIQUE: AP portable view of the chest. FINDINGS: Bilateral thoracostomy tubes and mediastinal drain in place. The tip of the Juniata-Maryanne catheter is in the undivided main pulmonary artery. Ill-defined left lower lobe infiltrate with the remainder of the lungs being clear. Heart not enlarged. Mild degree of vascular congestion. IMPRESSION: Findings as described above. Electronically signed by: Sangeeta Harmon M.D. us Maureen Martinez LABOR CUSTODIAN IMG XR PROCEDURES Final Result * Calcium, ionized, whole blood (01/03/2025 4:04 AM CDT) Ca, ionized, bld 4.56 4.50 - 5.10 mg/dL Blood 01/03/2025 4:04 AM CDT 01/03/2025 4:19 AM CDT Maureen Martinez LABOR CUSTODIAN LAB BLOOD ORDERABLES Fin al Result ARON [address] [address] Department of Laboratories [place] [id number] * (ABNORMAL) eGFR (01/03/2025 4:04 AM CDT) eGFR 57(L) >=60 mL/min/1. 73 m2 Comment: Interpretive Data Reference Interval Normal >/= 90 mL/min/1.73m2 Mildly decreased* 60 - 89 mL/min/1.73m2 Mildly to moderately decreased 45 - 59 mL/min/1.73m2 Moderately to severely decreased 30 - 44 mL/min/1.73m2 Severely decreased 15 - 29 mL/min/1.73m2 Kidney Failure < 15 mL/min/1.73m2 *Relative to young adult level Estimated glomerular filtration rate is determined by the 2020 CKD-EPI equation recommended by the National Kidney Foundation (A Unifying Approach to GFR Estimation: Recommendations of the NKF-ASK Task Force on Reassessing the Inclusion of Race in Diagnosing Kidney Disease, JASN 2020). The CKD-EPI equation should not be used for patients with unstable renal function and has not been validated in children and those over 70. Current interpretive data was last reviewed 2021. Blood 01/03/2025 4:04 AM CDT 01/03/2025 4:35 AM CDT Maureen Martinez LABOR CUSTODIAN LAB BLOOD ORDERABLES Fin al Result Performing Organization Address [facility] [address]/[facility] Co de Phone Number ARON [address] Department [employer] [place], [place] [id number] * (ABNORMAL) CBC without differential (01/03/2025 4:04 AM CDT) WBC 4.21 3.80 - 9.90 K/cumm Hgb 9.6(L) 13.0 - 17.5 g/dL [facility] Hct 29.7(L) 38.9 - 50.3 % [facility] Plt 76(L) 150 - 400 K/cumm [facility] MPV 10.8 9.1 - 12.3 fL [facility] RBC 3.30(L) 4.30 - 5.80 M/cumm [facility] MCV 90.0 81.3 - 96.[address] [facility] MCH 29.1 27.1 - 33.3 pg [facility] MCHC 32.3 32.3 - 35.7 g/dL [facility] RDW CV 15.2(H) 11.1 - 14.9 % [facility] RDW SD 50.0(H) 35.7 - 48.1 fL [facility] NRBC abs 0.00 0.00 - 0.01 K/cumm [facility] Blood 01/03/2025 4:04 AM CDT 01/03/2025 4:22 AM CDT Maureen Martinez LABOR CUSTODIAN LAB BLOOD ORDERABLES Fin al Result Performing Organization Address City/[facility] [address]/ZIP Co de Phone Number ARON BHAT [address] Department [place] [place] [address] * Phosphorus (01/03/2025 4:04 AM CDT) Phosphorus, pl 2.9 2.3 - 4.5 mg/dL Blood 01/03/2025 4:04 AM CDT 01/03/2025 4:18 AM CDT Maureen Martinez LABOR CUSTODIAN LAB BLOOD ORDERABLES Fin al Result Performing Organization Address [facility] [address]/[facility] Co de Phone Number ARON BHAT [address] [address] [facility] [place] [place] [address] * Magnesium (01/03/2025 4:04 AM CDT) Pathologist [facility] Magnesium 2.2 1.4 - 2.5 mg/dL Blood 01/03/2025 4:04 AM CDT 01/03/2025 4:18 AM CDT Maureen Martinez LABOR CUSTODIAN LAB BLOOD ORDERABLES Fin al Result Performing Organization Address [facility] Phone Number ARON BHAT [address] [address] [facility] [place] [employer] [place] [address] * (ABNORMAL) Bilirubin, direct (01/03/2025 4:04 AM CDT) Pathologist [facility] Bilirubin, direct 1.6(H) 0.1 - 0.3 mg/dL Blood 01/03/2025 4:04 AM CDT 01/03/2025 4:18 AM CDT Maureen Martinez LABOR CUSTODIAN LAB BLOOD ORDERABLES Fin al Result Performing Organization Address [facility] [address]/[facility] de Phone Number ARON BHAT [address] [address] [facility] [place] [place] [address] * (ABNORMAL) Comprehensive metabolic panel (01/03/2025 4:04 AM CDT) Sodium 141 135 - 145 mmol/L Potassium, pl 3.8 3.3 - 4.9 mmol/L [facility] Chloride 106 97 - 110 mmol/L [facility] CO2 26 22 - 32 mmol/L [facility] Anion gap 9 2 - 15 mmol/L [facility] BUN 26(H) 6 - 25 mg/dL [facility] Creatinine 1.29 0.80 - 1.30 mg/dL [facility] Comment:Icteric sample, test results may be affected. Glucose 122 70 - 199 mg/dL [facility] Comment: Interpretive Data Fasting glucose >/= 126 mg/dl is diagnostic for diabetes. Fasting is defined as no caloric intake for at least 8 hours. Fasting glucose between 100 mg/dl to 125 mg/dl is diagnostic of prediabetes. In a patient with classic symptoms of hyperglycemia or hyperglycemic crisis, a random glucose >/= 200 mg/dl is diagnostic for diabetes. In the absence of unequivocal hyperglycemia, results should be confirmed by repeat testing. The classification and Diagnosis of Diabetes Diabetes Care 2021; 46: S19-S40. Current interpretive data was last revised 2022. Calcium 8.5 8.5 - 10.3 mg/dL [facility] Bilirubin, total 2.4(H) 0.1 - 1.2 mg/dL [facility] Protein, pl 5.5(L) 6.5 - 8.5 g/dL [facility] Albumin 3.3(L) 3.5 - 5.0 g/dL [facility] Alk phos 172(H) 40 - 130 Units/L [facility] ALT 35 7 - 55 Units/L [facility] AST 55(H) 10 - 50 Units/L [facility] Blood 01/03/2025 4:04 AM CDT 01/03/2025 4:18 AM CDT us Maureen Martinez LABOR CUSTODIAN LAB BLOOD ORDERABLES Fin al Result Performing Organization Address City/[facility] [address]/ZIP Co de Phone Number ARON BHAT [address] [address] Department [employer] [place] [address] * POCT glucose (01/03/2025 4:01 AM CDT) Glucose, POC 118 70 - 199 mg/dL POC Performer [id number] [facility] Blood 01/03/2025 4:01 AM CDT 01/03/2025 4:01 AM CDT Angel [place] MD LAB POCT ORDERABLES - DEVICE Final Result ARON BHAT [address] [address] [place] [address] * Critical Care (01/02/2025 8:52 PM CDT) Narrative Iain Moon MD - 01/02/2025 8:52 PM CDT Iain Moon MD 01/07/2025 4:37 PM Critical Care Performed by: Olvin Tyler NP Authorized by: Olvin Tyler NP CRITICAL CARE: Team: ELISA Shift: PM Level of Billing: Critical Care My time spent with this patient was 60 minutes: Critical Provider Statement: I have seen and examined the patient on this day of service. I have reviewed and confirmed the history, physical exam, laboratory and radiologic data as documented in the signed ICU note. I have reviewed and discussed my treatment plan with the ICU team and other medical/client support consultant staff, making frequent assessments and decisions regarding this patient's complex medical care. Critical Care time was exclusive of time spent performing separately billed procedures, treating other patients, and teaching. This time was in addition to and separate from critical care provided by other practitioners in my group on this day of service. Critical Care was necessary to treat or prevent imminent or life-threatening deterioration of the following conditions: I spent time reviewing and interpreting data from bedside monitors, laboratory results, and imaging, I spent time discussing the management of this critically ill patient with consultants and the medical staff and I spent time documenting in the medical record us Olvin Tyler NP IN CLINIC/BEDSIDE ORDER HARVINDER Final Result * POCT glucose (01/02/2025 7:46 PM CDT) Glucose, POC 133 70 - 199 mg/dL POC Performer [id number] ARON BHAT Blood 01/02/2025 7:46 PM CDT 01/02/2025 7:46 PM CDT us Angel [place] MD LAB POCT ORDERABLES - DEVICE Final Result ARON BHAT [address] [address] [place] [address] * Transfuse RBC (01/02/2025 6:00 PM CDT) Blood Angel [place] MD BLOOD TRANSFUSION ORDERABLES Final Result Performing Organization Address [facility] [address]/[facility] Co de Phone Number ARON BHAT [address] [address] [facility] [place] [place] [address] * POCT glucose (01/02/2025 4:53 PM CDT) Pathologist [facility] Glucose, POC 138 70 - 199 mg/dL POC Performer [id number] [facility] Blood 01/02/2025 4:53 PM CDT 01/02/2025 4:53 PM CDT Angel [place] MD LAB POCT ORDERABLES - DEVICE Final Result Performing Organization Address [facility] de Phone Number LETIBERTO BHAT [address] [address] [place] [place] [address] * Calcium, ionized, whole blood (01/02/2025 2:35 PM CDT) [facility] Ca, ionized, bld 4.82 4.50 - 5.10 mg/dL Blood 01/02/2025 2:35 PM CDT 01/02/2025 2:49 PM CDT Angel [place] MD LAB BLOOD ORDERABLES Final R esult Performing Organization Address [facility] [address]/[facility] de Phone Number ARON BHAT [address] [address] [place] [place] [address] * (ABNORMAL) eGFR (01/02/2025 2:35 PM CDT) [facility] eGFR 53(L) >=60 mL/min/1. 73 m2 Comment: Interpretive Data Reference Interval Normal >/= 90 mL/min/1.73m2 Mildly decreased* 60 - 89 mL/min/1.73m2 Mildly to moderately decreased 45 - 59 mL/min/1.73m2 Moderately to severely decreased 30 - 44 mL/min/1.73m2 Severely decreased 15 - 29 mL/min/1.73m2 Kidney Failure < 15 mL/min/1.73m2 *Relative to young adult level Estimated glomerular filtration rate is determined by the 2020 CKD-EPI equation recommended by the National Kidney Foundation (A Unifying Approach to GFR Estimation: Recommendations of the NKF-ASK Task Force on Reassessing the Inclusion of Race in Diagnosing Kidney Disease, JASN 202). The CKD-EPI equation should not be used for patients with unstable renal function and has not been validated in children and those over 70. Current interpretive data was last reviewed 2021. Blood 01/02/2025 2:35 PM CDT 01/02/2025 2:58 PM CDT us Angel [place] MD LAB BLOOD ORDERABLES Final R esult [facility] [address] [address] [place] [address] * (ABNORMAL) Differential, auto (01/02/2025 2:35 PM CDT) Neutrophil abs 3.37 1.50 - 6.50 K/cumm Imm gran abs 0.01 0.00 - 0.10 K/cumm [facility] Lymphocyte abs 0.35(L) 0.80 - 3.30 K/cumm [facility] Monocyte abs 0.24 0.20 - 0.80 K/cumm [facility] Eosinophil abs 0.01 0.00 - 0.50 K/cumm [facility] Basophil abs 0.00 0.00 - 0.10 K/cumm [facility] Neutrophil pct 84.6 % [facility] Comment: Interpretive Data Percent cell count reference ranges are not reported, since discordance with absolute values may lead to misinterpretation of CBC data. Current Interpretive Data was last revised on 2017. Imm gran pct 0.3 % ARON Comment: Interpretive Data Percent cell count reference ranges are not reported, since discordance with absolute values may lead to misinterpretation of CBC data. Current Interpretive Data was last revised on 2017. Lymphocyte pct 8.8 % [facility] Comment: Interpretive Data Percent cell count reference ranges are not reported, since discordance with absolute values may lead to misinterpretation of CBC data. Current Interpretive Data was last revised on 2017. Monocyte pct 6.0 % [facility] Comment: Interpretive Data Percent cell count reference ranges are not reported, since discordance with absolute values may lead to misinterpretation of CBC data. Current Interpretive Data was last revised on 2017. Eosinophil pct 0.3 % [facility] Comment: Interpretive Data Percent cell count reference ranges are not reported, since discordance with absolute values may lead to misinterpretation of CBC data. Current Interpretive Data was last revised on 2017. Basophil pct 0.0 % [facility] Comment: Interpretive Data Percent cell count reference ranges are not reported, since discordance with absolute values may lead to misinterpretation of CBC data. Current Interpretive Data was last revised on 2017. Blood 01/02/2025 2:35 PM CDT 01/02/2025 2:51 PM CDT us Angel [place] MD LAB BLOOD ORDERABLES Final R esult [facility] [address] [place] [address] * (ABNORMAL) CBC with auto differential (01/02/2025 2:35 PM CDT) WBC 3.98 3.80 - 9.90 K/cumm Hgb 8.9(L) 13.0 - 17.5 g/dL [facility] Hct 27.1(L) 38.9 - 50.3 % [facility] Plt 83(L) 150 - 400 K/cumm [facility] MPV 11.3 9.1 - 12.3 fL [facility] RBC 2.98(L) 4.30 - 5.80 M/cumm [facility] MCV 90.9 81.3 - 96.4 fL [facility] MCH 29.9 27.1 - 33.3 pg [facility] MCHC 32.8 32.3 - 35.7 g/dL [facility] RDW CV 14.8 11.1 - 14.9 % [facility] RDW SD 49.4(H) 35.7 - 48.1 fL [facility] NRBC abs 0.00 0.00 - 0.01 K/cumm [facility] Blood 01/02/2025 2:35 PM CDT 01/02/2025 2:51 PM CDT Angel [place] MD LAB BLOOD ORDERABLES Final R esult Performing Organization Address City/[facility] [address] [facility] Co de Phone Number ARON [address] [address] [facility] [place] [place] [address] * Phosphorus (01/02/2025 2:35 PM CDT) Phosphorus, pl 2.5 2.3 - 4.5 mg/dL Blood 01/02/2025 2:35 PM CDT 01/02/2025 2:49 PM CDT Angel [place] MD LAB BLOOD ORDERABLES Final R esult Performing Organization Address [facility] de Phone Number [facility] [address] [address] [facility] [place] [address] * Magnesium (01/02/2025 2:35 PM CDT) Magnesium 2.1 1.4 - 2.5 mg/dL Blood 01/02/2025 2:35 PM CDT 01/02/2025 2:49 PM CDT Angel [place] MD LAB BLOOD ORDERABLES Final R esult Performing Organization Address [facility] [address]/[facility] de Phone Number [facility] [address] [address] [facility] [place] [place] [address] * (ABNORMAL) Blood gas, arterial (01/02/2025 2:35 PM CDT) pH, Art 7.46(H) 7.35 - 7.45 PCO2, Arterial 37 35 - 45 mmHg [facility] PO2, Arterial 73(L) 83 - 108 mmHg [facility] HCO3 Art (Calculated) 27 20 - 30 mmol/L [facility] BE, art 2 mmol/L [facility] Comment: Interpretive Data No Reference Range Established Current Interpretive Data was last revised on 2017 O2 Sat Art (Measured) 96(H) 90 - 95 % [facility] Blood 01/02/2025 2:35 PM CDT 01/02/2025 2:49 PM CDT us Angel Gonzaelz MD LAB BLOOD ORDERABLES Final R esult [facility] [address] [address] [place] [address] * (ABNORMAL) Basic metabolic panel (01/02/2025 2:35 PM CDT) Sodium 145 135 - 145 mmol/L Potassium, pl 3.7 3.3 - 4.9 mmol/L [facility] Chloride 109 97 - 110 mmol/L [facility] CO2 26 22 - 32 mmol/L [facility] Anion gap 10 2 - 15 mmol/L [facility] BUN 28(H) 6 - 25 mg/dL [facility] Creatinine 1.37(H) 0.80 - 1.30 mg/dL [facility] Comment:Icteric sample, test results may be affected. Glucose 152 70 - 199 mg/dL [facility] Comment: Interpretive Data Fasting glucose >/= 126 mg/dl is diagnostic for diabetes. Fasting is defined as no caloric intake for at least 8 hours. Fasting glucose between 100 mg/dl to 125 mg/dl is diagnostic of prediabetes. In a patient with classic symptoms of hyperglycemia or hyperglycemic crisis, a random glucose >/= 200 mg/dl is diagnostic for diabetes. In the absence of unequivocal hyperglycemia, results should be confirmed by repeat testing. The classification and Diagnosis of Diabetes Diabetes Care 2021; 46: S19-S40. Current interpretive data was last revised 2022. Calcium 8.8 8.5 - 10.3 mg/dL [facility] Blood 01/02/2025 2:35 PM CDT 01/02/2025 2:49 PM CDT Angel [place] MD LAB BLOOD ORDERABLES Final R esult Performing Organization Address City/[facility] [address]/ZIP Co de Phone Number ARON BHAT [address] [address] [facility] [place] [address] * POCT glucose (01/02/2025 1:18 PM CDT) Glucose, POC 174 70 - 199 mg/dL POC Performer [id number] [facility] Blood 01/02/2025 1:18 PM CDT 01/02/2025 1:18 PM CDT Angel [place] MD LAB POCT ORDERABLES - DEVICE Final Result Performing Organization Address [facility] [address] [facility] de Phone Number ARON BHAT [address] [address] [facility] [place] [address] * (ABNORMAL) POCT glucose (01/02/2025 1:16 PM CDT) Glucose, POC 61(L) 70 - 199 mg/dL POC Performer [id number] [facility] Blood 01/02/2025 1:16 PM CDT 01/02/2025 1:16 PM CDT Angel [place] MD LAB POCT ORDERABLES - DEVICE Final Result Performing Organization Address [facility] [address] [facility] de Phone Number ARON BHAT [address] [address] [facility] [place] [place] [address] * Prepare RBC: 1 Units (01/02/2025 11:36 AM CDT) Product code [id number] Unit Number [id number] 9-A [facility] Product Blood Type BNEG [facility] Dispense Status RETURNED [facility] Blood 01/02/2025 11:3 6 AM CDT Narrative [facility] - 01/03/2025 12:26 AM CDT 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 (All products are leukoreduced and CMV- safe)- >No Date required:-[id number] LRRBC # of [id number] Reasons:-Other (specify)} Angel [place] MD BLOOD BANK PRODUCT ORDERABLE S Final Result Performing Organization Address [facility] [address] [facility] Co de Phone Number LETIBERTO BHAT [address] [address] [facility] [place] [employer] [place] [address] * Oxyhemoglobin, pulmonary artery (01/02/2025 10:01 AM CDT) Oxyhemoglobin, PA 53.7 % Comment: Interpretive Data No reference range established. Current interpretive data was last revised 2019. Blood 01/02/2025 10:0 1 AM CDT 01/02/2025 10:04 AM CDT Angel [place] MD LAB BLOOD ORDERABLES Final R esult Performing Organization Address [facility] [address] [facility] Co de Phone Number ARON HOME [address] [address] Department [place] [address] * POCT glucose (01/02/2025 8:28 AM CDT) Glucose, POC 166 70 - 199 mg/dL POC Performer [id number] [facility] Blood 01/02/2025 8:28 AM CDT 01/02/2025 8:28 AM CDT Angel [place] MD LAB POCT ORDERABLES - DEVICE Final Result Performing Organization Address [facility] Co de Phone Number ARON BHAT [address] [address] [facility] [employer] [place], [place] [id number] * Critical Care (01/02/2025 6:54 AM CDT) Narrative Gayathri Braga MD - 01/02/2025 6:54 AM CDT Gayathri Braga MD 01/03/2025 6:25 PM Critical Care Performed by: Maureen Martinez NP Authorized by: Maureen Martinez NP CRITICAL CARE: Team: ELISA Shift: AM Level of Billing: Critical Care My time spent with this patient was 100 minutes: Critical Provider Statement: I have seen and examined the patient on this day of service. I have reviewed and confirmed the history, physical exam, laboratory and radiologic data as documented in the signed ICU note. I have reviewed and discussed my treatment plan with the ICU team and other medical/client support consultant staff, making frequent assessments and decisions regarding this patient's complex medical care. Critical Care time was exclusive of time spent performing separately billed procedures, treating other patients, and teaching. This time was in addition to and separate from critical care provided by other practitioners in my group on this day of service. Critical Care was necessary to treat or prevent imminent or life-threatening deterioration of the following conditions: I spent time reviewing and interpreting data from bedside monitors, laboratory results, and imaging, I spent time discussing the management of this critically ill patient with consultants and the medical staff and I spent time documenting in the medical record Maureen Martinez NP IN CLINIC/BEDSIDE ORDERA BLES Final Result * XR Chest 1 View - Portable - in AM (01/02/2025 6:18 AM CDT) Anatomical Region Laterality Modality Body, Chest N/A Computed Radiogr aphy 01/02/2025 8:23 AM CDT Impressions 01/02/2025 8:23 AM CDT No failure Electronically signed by: Sangeeta Harmon M.D. Narrative 01/02/2025 8:23 AM CDT EXAMINATION: XR CHEST 1 VIEW HISTORY: The patient is a 79-year-old male who has had cardiac surgery. Comparison made with the previous study dated 01/01/2025. TECHNIQUE: AP portable view of the chest. FINDINGS: Bilateral thoracostomy tubes and mediastinal drain are in unchanged position. The tip of the Juniata-Maryanne catheter is in the undivided main pulmonary artery. Left lower lobe infiltrate noted with the remainder of the lungs being clear. Heart not enlarged. No failure. Procedure Note Sangeeta Harmon MD - 01/02/2025 EXAMINATION: XR CHEST 1 VIEW HISTORY: The patient is a 79-year-old male who has had cardiac surgery. Comparison made with the previous study dated 01/01/2025. TECHNIQUE: AP portable view of the chest. FINDINGS: Bilateral thoracostomy tubes and mediastinal drain are in unchanged position. The tip of the Juniata-Maryanne catheter is in the undivided main pulmonary artery. Left lower lobe infiltrate noted with the remainder of the lungs being clear. Heart not enlarged. No failure. IMPRESSION: No failure Electronically signed by: Sangeeta Harmon M.D. Maureen Martinez LABOR CUSTODIAN IMG XR PROCEDURES Final Result * POCT glucose (01/02/2025 3:36 AM CDT) [facility] Glucose, POC 152 70 - 199 mg/dL POC Performer [id number] [facility] Blood 01/02/2025 3:36 AM CDT 01/02/2025 3:36 AM CDT Angel [place] MD LAB POCT ORDERABLES - DEVICE Final Result Performing Organization Address City/[facility] [address]/[facility] Co de Phone Number LETIBERTO BHAT [address] [address] Department [place] [place] [address] * Calcium, ionized, whole blood (01/02/2025 2:14 AM CDT) [facility] Ca, ionized, bld 4.78 4.50 - 5.10 mg/dL Blood 01/02/2025 2:14 AM CDT 01/02/2025 2:21 AM CDT Maureen Martinez NP LAB BLOOD ORDERABLES Fin al Result Performing Organization Address City/[facility] [address]/ZIP Co de Phone Number LETIBERTO BHAT [address] [address] Department [place] [employer] [place] [address] * (ABNORMAL) eGFR (01/02/2025 2:14 AM CDT) [facility] eGFR 55(L) >=60 mL/min/1. 73 m2 Comment: Interpretive Data Reference Interval Normal >/= 90 mL/min/1.73m2 Mildly decreased* 60 - 89 mL/min/1.73m2 Mildly to moderately decreased 45 - 59 mL/min/1.73m2 Moderately to severely decreased 30 - 44 mL/min/1.73m2 Severely decreased 15 - 29 mL/min/1.73m2 Kidney Failure < 15 mL/min/1.73m2 *Relative to young adult level Estimated glomerular filtration rate is determined by the 2020 CKD-EPI equation recommended by the National Kidney Foundation (A Unifying Approach to GFR Estimation: Recommendations of the NKF-ASK Task Force on Reassessing the Inclusion of Race in Diagnosing Kidney Disease, JASN 2020). The CKD-EPI equation should not be used for patients with unstable renal function and has not been validated in children and those over 70. Current interpretive data was last reviewed 2021. Blood 01/02/2025 2:14 AM CDT 01/02/2025 2:24 AM CDT us Maureen Martinez NP LAB BLOOD ORDERABLES [facility] al Result [facility] [address] [address] [place] [address] * (ABNORMAL) CBC without differential (01/02/2025 2:14 AM CDT) WBC 3.78(L) 3.80 - 9.90 K/cumm Hgb 8.9(L) 13.0 - 17.5 g/dL [facility] Hct 27.0(L) 38.9 - 50.3 % [facility] Plt 80(L) 150 - 400 K/cumm [facility] MPV 10.7 9.1 - 12.3 fL [facility] RBC 2.99(L) 4.30 - 5.80 M/cumm [facility] MCV 90.3 81.3 - 96.4 fL [facility] MCH 29.8 27.1 - 33.3 pg [facility] MCHC 33.0 32.3 - 35.7 g/dL [facility] RDW CV 14.7 11.1 - 14.9 % [facility] RDW SD 48.5(H) 35.7 - 48.1 fL [facility] NRBC abs 0.00 0.00 - 0.01 K/cumm [facility] Blood 01/02/2025 2:14 AM CDT 01/02/2025 2:19 AM CDT Maureen Martinez LABOR CUSTODIAN LAB BLOOD ORDERABLES Fin al Result Performing Organization Address [facility] de Phone Number [facility] [address] [address] [place] [address] * Magnesium (01/02/2025 2:14 AM CDT) [facility] Magnesium 2.3 1.4 - 2.5 mg/dL Blood 01/02/2025 2:14 AM CDT 01/02/2025 2:24 AM CDT Maureen Martinez LABOR CUSTODIAN LAB BLOOD ORDERABLES Fin al Result Performing Organization Address [facility] de Phone Number [facility] [address] [address] Department [place] [employer] [place] [address] * (ABNORMAL) Renal function panel (01/02/2025 2:14 AM CDT) Pathologist [facility] Sodium 145 135 - 145 mmol/L Potassium, pl 4.2 3.3 - 4.9 mmol/L [facility] Chloride 109 97 - 110 mmol/L [facility] CO2 25 22 - 32 mmol/L [facility] Anion gap 11 2 - 15 mmol/L [facility] BUN 26(H) 6 - 25 mg/dL [facility] Creatinine 1.33(H) 0.80 - 1.30 mg/dL [facility] Comment:Icteric sample, test results may be affected. Glucose 146 70 - 199 mg/dL [facility] Comment: Interpretive Data Fasting glucose >/= 126 mg/dl is diagnostic for diabetes. Fasting is defined as no caloric intake for at least 8 hours. Fasting glucose between 100 mg/dl to 125 mg/dl is diagnostic of prediabetes. In a patient with classic symptoms of hyperglycemia or hyperglycemic crisis, a random glucose >/= 200 mg/dl is diagnostic for diabetes. In the absence of unequivocal hyperglycemia, results should be confirmed by repeat testing. The classification and Diagnosis of Diabetes Diabetes Care 2021; 46: S19-S40. Current interpretive data was last revised 2022. Calcium 9.1 8.5 - 10.3 mg/dL [facility] Phosphorus, pl 2.5 2.3 - 4.5 mg/dL [facility] Albumin 3.5 3.5 - 5.0 g/dL [facility] Blood 01/02/2025 2:14 AM CDT 01/02/2025 2:24 AM CDT Maureen Martinez LABOR CUSTODIAN LAB BLOOD ORDERABLES Fin al Result Performing Organization Address [facility] Co de Phone Number ARON BHAT [address] [address] [place] [place] [address] * POCT glucose (01/01/2025 11:59 PM CDT) Glucose, POC 137 70 - 199 mg/dL POC Performer [id number] [facility] Blood 01/01/2025 11:5 9 PM CDT 01/01/2025 11:59 PM CDT Angel [place] MD LAB POCT ORDERABLES - DEVICE Final Result Performing Organization Address [facility] de Phone Number ARON BHAT [address] [address] Department [place] [employer] [place] [address] * POCT glucose (01/01/2025 9:06 PM CDT) Glucose, POC 164 70 - 199 mg/dL POC Performer [id number] [facility] Blood 01/01/2025 9:06 PM CDT 01/01/2025 9:06 PM CDT Angel [place] MD LAB POCT ORDERABLES - DEVICE Final Result Performing Organization Address [facility] [address] [facility] Co de Phone Number ARON BHAT [address] [place] [address] * Critical Care (01/01/2025 7:22 PM CDT) Narrative Iain Moon MD - 01/01/2025 7:22 PM CDT Iain Moon MD 01/07/2025 4:37 PM Critical Care Performed by: Olvin Tyler NP Authorized by: Olvin Tyler NP CRITICAL CARE: Team: ELISA Shift: PM Level of Billing: Critical Care My time spent with this patient was 75 minutes: Critical Provider Statement: I have seen and examined the patient on this day of service. I have reviewed and confirmed the history, physical exam, laboratory and radiologic data as documented in the signed ICU note. I have reviewed and discussed my treatment plan with the ICU team and other medical/client support consultant staff, making frequent assessments and decisions regarding this patient's complex medical care. Critical Care time was exclusive of time spent performing separately billed procedures, treating other patients, and teaching. This time was in addition to and separate from critical care provided by other practitioners in my group on this day of service. Critical Care was necessary to treat or prevent imminent or life-threatening deterioration of the following conditions: I spent time reviewing and interpreting data from bedside monitors, laboratory results, and imaging, I spent time discussing the management of this critically ill patient with consultants and the medical staff and I spent time documenting in the medical record Olvin Tyler NP IN CLINIC/BEDSIDE ORDER HARVINDER Final Result * (ABNORMAL) POC Blood Gas and Chemistries, Arterial - (01/01/2025 4:52 PM CDT) pH, Art POC 7.48(H) 7.35 - 7.45 pCO2, Art POC 36 35 - 45 mmHg [facility] pO2, Art POC 69(L) 83 - 108 mmHg [facility] Na, POC 143 135 - 145 mmol/L [facility] K POC 3.7 3.3 - 4.9 mmol/L [facility] Comment: Interpretive Data This method is not able to assess for hemolysis, which may falsely increase potassium concentrations. If further testing is needed to evaluate this result, consider in-laboratory plasma potassium. Current Interpretive Data was last revised on 2022. Ionized Ca, POC 5.05 4.50 - 5.10 mg/dL [facility] Glucose, POC 211(H) 70 - 199 mg/dL [facility] Lactate, POC 2.2(H) 0.7 - 2.0 mmol/L [facility] O2Hb, Art POC 94.6 90.0 - 95.0 % [facility] SO2 (leatha) arterial 97(H) 90 - 95 % [facility] Total CO2, Art POC 28 21 - 30 mmol/L [facility] BE, art, POC 3 mmol/L [facility] HCO3, Art POC 27 20 - 30 mmol/L [facility] Hct, POC 28.0(L) 38.9 - 50.3 % [facility] Total Hb, POC 9.3(L) 13.0 - 17.5 g/dL [facility] Blood 01/01/2025 4:52 PM CDT 01/01/2025 4:52 PM CDT Angel [place] MD LAB POCT ORDERABLES - DEVICE Final Result Performing Organization Address City/[facility] [address]/ZIP Co de Phone Number LETIBERTO BHAT [address] [address] [place] [address] * (ABNORMAL) POCT glucose (01/01/2025 4:32 PM CDT) Glucose, POC 208(H) 70 - 199 mg/dL POC Performer [id number] [facility] Blood 01/01/2025 4:32 PM CDT 01/01/2025 4:32 PM CDT Angel [place] MD LAB POCT ORDERABLES - DEVICE Final Result ARON BHAT [address] [address] Department of [employer] [place], [place] [address] * (ABNORMAL) POC Blood Gas and Chemistries, Arterial - (01/01/2025 2:25 PM CDT) pH, Art POC 7.47(H) 7.35 - 7.45 pCO2, Art POC 33(L) 35 - 45 mmHg [facility] pO2, Art POC 65(L) 83 - 108 mmHg [facility] Na, POC 143 135 - 145 mmol/L [facility] K POC 4.1 3.3 - 4.9 mmol/L [facility] Comment: Interpretive Data This method is not able to assess for hemolysis, which may falsely increase potassium concentrations. If further testing is needed to evaluate this result, consider in-laboratory plasma potassium. Current Interpretive Data was last revised on 2022. Ionized Ca, POC 5.22(H) 4.50 - 5.10 mg/dL [facility] Glucose, POC 230(H) 70 - 199 mg/dL [facility] Lactate, POC 3.8(H) 0.7 - 2.0 mmol/L [facility] O2Hb, Art POC 94.6 90.0 - 95.0 % [facility] SO2 (leatha) arterial 97(H) 90 - 95 % [facility] Total CO2, Art POC 25 21 - 30 mmol/L [facility] BE, art, POC 1 mmol/L [facility] HCO3, Art POC 25 20 - 30 mmol/L [facility] Hct, POC 30.0(L) 38.9 - 50.3 % [facility] Total Hb, POC 9.9(L) 13.0 - 17.5 g/dL [facility] Blood 01/01/2025 2:25 PM CDT 01/01/2025 2:25 PM CDT Angel [place] MD LAB POCT ORDERABLES - DEVICE Final Result [facility] [address] [address] [place] [address] * (ABNORMAL) POCT glucose (01/01/2025 12:20 PM CDT) Glucose, POC 228(H) 70 - 199 mg/dL POC Performer [id number] [facility] Blood 01/01/2025 12:2 0 PM CDT 01/01/2025 12:20 PM CDT Angel [place] MD LAB POCT ORDERABLES - DEVICE Final Result ARON BHAT [address] [address] [facility] [place] [place] [address] * Calcium, ionized, whole blood (01/01/2025 11:58 AM CDT) Ca, ionized, bld 5.06 4.50 - 5.10 mg/dL Blood 01/01/2025 11:5 8 AM CDT 01/01/2025 12:02 PM CDT Angel [place] MD LAB BLOOD ORDERABLES Final R esult Performing Organization Address [facility] Co de Phone Number ARON BHAT [address] [address] [facility] [place] [place] [address] * eGFR (01/01/2025 11:58 AM CDT) eGFR 74 >=60 mL/min/1. 73 m2 Comment: Interpretive Data Reference Interval Normal >/= 90 mL/min/1.73m2 Mildly decreased* 60 - 89 mL/min/1.73m2 Mildly to moderately decreased 45 - 59 mL/min/1.73m2 Moderately to severely decreased 30 - 44 mL/min/1.73m2 Severely decreased 15 - 29 mL/min/1.73m2 Kidney Failure < 15 mL/min/1.73m2 *Relative to young adult level Estimated glomerular filtration rate is determined by the 2020 CKD-EPI equation recommended by the National Kidney Foundation (A Unifying Approach to GFR Estimation: Recommendations of the NKF-ASK Task Force on Reassessing the Inclusion of Race in Diagnosing Kidney Disease, JASN 202). The CKD-EPI equation should not be used for patients with unstable renal function and has not been validated in children and those over 70. Current interpretive data was last reviewed 2021. Blood 01/01/2025 11:5 8 AM CDT 01/01/2025 12:12 PM CDT Angel [place] MD LAB BLOOD ORDERABLES Final R esult ARON BHAT [address] Department of [employer] [place], [place] [id number] * (ABNORMAL) CBC without differential (01/01/2025 11:58 AM CDT) WBC 5.21 3.80 - 9.90 K/cumm Hgb 8.8(L) 13.0 - 17.5 g/dL [facility] Hct 26.1(L) 38.9 - 50.3 % [facility] Plt 81(L) 150 - 400 K/cumm [facility] MPV 10.9 9.1 - 12.3 fL [facility] RBC 2.93(L) 4.30 - 5.80 M/cumm [facility] MCV 89.1 81.3 - 96.4 fL [facility] MCH 30.0 27.1 - 33.[address] [facility] MCHC 33.7 32.3 - 35.7 g/dL [facility] RDW CV 14.6 11.1 - 14.9 % [facility] CH RDW SD 47.5 35.7 - 48.1 fL [facility] NRBC abs 0.00 0.00 - 0.01 K/cumm [facility] Blood 01/01/2025 11:5 8 AM CDT 01/01/2025 12:02 PM CDT us Angel [place] MD LAB BLOOD ORDERABLES Final R esult ARON BHAT [address] [place] [address] * Phosphorus (01/01/2025 11:58 AM CDT) Phosphorus, pl 3.2 2.3 - 4.5 mg/dL Blood 01/01/2025 11:5 8 AM CDT 01/01/2025 12:02 PM CDT Angel [place] MD LAB BLOOD ORDERABLES Final R esult ARON BHAT [address] [facility] [employer] [place], [place] [id number] * Magnesium (01/01/2025 11:58 AM CDT) Magnesium 2.1 1.4 - 2.5 mg/dL Blood 01/01/2025 11:5 8 AM CDT 01/01/2025 12:02 PM CDT Angel [place] MD LAB BLOOD ORDERABLES Final R esult Performing Organization Address [facility] Co de Phone Number ARON BHAT [address] Department [employer] [place], [place] [id number] * (ABNORMAL) Blood gas, arterial (01/01/2025 11:58 AM CDT) pH, Art 7.44 7.35 - 7.45 PCO2, Arterial 36 35 - 45 mmHg [facility] PO2, Arterial 60(L) 83 - 108 mmHg [facility] HCO3 Art (Calculated) 25 20 - 30 mmol/L [facility] BE, art 0 mmol/L [facility] Comment: Interpretive Data No Reference Range Established Current Interpretive Data was last revised on 2017 O2 Sat Art (Measured) 92 90 - 95 % [facility] Blood 01/01/2025 11:5 8 AM CDT 01/01/2025 12:02 PM CDT Maureen Martinez NP LAB BLOOD ORDERABLES Fin al Result Performing Organization Address City/[facility] [address]/ZIP Co de Phone Number ARON BHAT [address] [facility] [employer] [place], [place] [id number] * (ABNORMAL) Basic metabolic panel (01/01/2025 11:58 AM CDT) Sodium 145 135 - 145 mmol/L Potassium, pl 3.8 3.3 - 4.9 mmol/L [facility] Chloride 109 97 - 110 mmol/L [facility] CO2 24 22 - 32 mmol/L [facility] Anion gap 12 2 - 15 mmol/L [facility] BUN 22 6 - 25 mg/dL [facility] Creatinine 1.03 0.80 - 1.30 mg/dL [facility] Comment:Icteric sample, test results may be affected. Glucose 226(H) 70 - 199 mg/dL [facility] Comment: Interpretive Data Fasting glucose >/= 126 mg/dl is diagnostic for diabetes. Fasting is defined as no caloric intake for at least 8 hours. Fasting glucose between 100 mg/dl to 125 mg/dl is diagnostic of prediabetes. In a patient with classic symptoms of hyperglycemia or hyperglycemic crisis, a random glucose >/= 200 mg/dl is diagnostic for diabetes. In the absence of unequivocal hyperglycemia, results should be confirmed by repeat testing. The classification and Diagnosis of Diabetes Diabetes Care 2021; 46: S19-S40. Current interpretive data was last revised 2022. Calcium 9.6 8.5 - 10.3 mg/dL [facility] Blood 01/01/2025 11:5 8 AM CDT 01/01/2025 12:02 PM CDT Angel [place] MD LAB BLOOD ORDERABLES Final R esult ARON [address] [place] [address] * (ABNORMAL) POC Blood Gas and Chemistries, Arterial - (01/01/2025 11:05 AM CDT) Pathologist [facility] pH, Art POC 7.47(H) 7.35 - 7.45 pCO2, Art POC 33(L) 35 - 45 mmHg [facility] pO2, Art POC 55(L) 83 - 108 mmHg [facility] Na, POC 144 135 - 145 mmol/L [facility] K POC 3.9 3.3 - 4.9 mmol/L [facility] Comment: Interpretive Data This method is not able to assess for hemolysis, which may falsely increase potassium concentrations. If further testing is needed to evaluate this result, consider in-laboratory plasma potassium. Current Interpretive Data was last revised on 2022. Ionized Ca, POC 5.41(H) 4.50 - 5.10 mg/dL [facility] Glucose, POC 229(H) 70 - 199 mg/dL [facility] Lactate, POC 2.1(H) 0.7 - 2.0 mmol/L [facility] O2Hb, Art POC 88.6(L) 90.0 - 95.0 % [facility] SO2 (leatha) arterial 90 90 - 95 % [facility] Total CO2, Art POC 25 21 - 30 mmol/L [facility] BE, art, POC 1 mmol/L [facility] HCO3, Art POC 25 20 - 30 mmol/L [facility] Hct, POC 28.0(L) 38.9 - 50.3 % [facility] Total Hb, POC 9.3(L) 13.0 - 17.5 g/dL [facility] Blood 01/01/2025 11:0 5 AM CDT 01/01/2025 11:05 AM CDT Angel [place] MD LAB POCT ORDERABLES - DEVICE Final Result Performing Organization Address City/[facility] [address] [facility] Co de Phone Number ARON BHAT [address] [place] [address] * (ABNORMAL) POCT glucose (01/01/2025 8:03 AM CDT) [facility] Signature Glucose, POC 251(H) 70 - 199 mg/dL POC Performer [id number] [facility] Blood 01/01/2025 8:03 AM CDT 01/01/2025 8:03 AM CDT Angel [place] MD LAB POCT ORDERABLES - DEVICE Final Result LETIBERTO BHAT [address] Department [employer] [place], [place] [id number] * ECG 12 lead (01/01/2025 7:41 AM CDT) 01/01/2025 7:41 AM CDT Narrative [facility] - 01/01/2025 6:31 PM CDT Vent Rate: 181 bpm RR Interval: 331 msec CO Interval: 0 msec QRS Duration: 88 msec QT Interval: 242 msec QTC Interval: 337 msec P-R-T Independence: 0 - 22 - 9 degrees IMPRESSION: ATRIAL FIBRILLATION WITH RAPID VENTRICULAR RESPONSE NONSPECIFIC ST \T\ T-WAVE ABNORMALITY CRITICAL TEST RESULT Electronically Signed By: Dr. Emiliano Cuello [facility] us Angel [place] MD ECG ORDERABLES Final Result [facility] * Critical Care (01/01/2025 6:50 AM CDT) Narrative Gayathri Braga MD - 01/01/2025 6:50 AM CDT Gayathri Braga MD 01/03/2025 6:25 PM Critical Care Performed by: Maureen Martinez NP Authorized by: Maureen Martinez NP CRITICAL CARE: Team: [facility] Shift: AM Level of Billing: Critical Care My time spent with this patient was 110 minutes: Critical Provider Statement: I have seen and examined the patient on this day of service. I have reviewed and confirmed the history, physical exam, laboratory and radiologic data as documented in the signed ICU note. I have reviewed and discussed my treatment plan with the ICU team and other medical/client support consultant staff, making frequent assessments and decisions regarding this patient's complex medical care. Critical Care time was exclusive of time spent performing separately billed procedures, treating other patients, and teaching. This time was in addition to and separate from critical care provided by other practitioners in my group on this day of service. Critical Care was necessary to treat or prevent imminent or life-threatening deterioration of the following conditions: I spent time reviewing and interpreting data from bedside monitors, laboratory results, and imaging, I spent time discussing the management of this critically ill patient with consultants and the medical staff and I spent time documenting in the medical record us Maureen Martinez NP IN CLINIC/BEDSIDE ORDERA BLES Final Result * XR Chest 1 View - Portable - in AM (01/01/2025 5:34 AM CDT) Anatomical Region Laterality Modality Body, Chest N/A Computed Radiogr aphy 01/01/2025 7:59 AM CDT Impressions 01/01/2025 7:59 AM CDT Mild failure. No pneumothorax. Bibasilar atelectasis. Extubation. Electronically signed by: Jesus Omer M.D. Narrative 01/01/2025 7:59 AM CDT EXAMINATION: XR CHEST 1 VIEW DATE: 01/01/2025 5:20 AM HISTORY: Cardiac surgery follow-up FINDINGS:When compared with study of the prior day, the patient has been extubated with removal of endotracheal and nasogastric tubes. Chest drains mediastinal drain and Juniata-Maryanne catheter remain in place. Mild pulmonary vascular congestion with bibasilar atelectasis with no pneumothorax Procedure Note Jesus Omer MD - 01/01/2025 EXAMINATION: XR CHEST 1 VIEW DATE: 01/01/2025 5:20 AM HISTORY: Cardiac surgery follow-up FINDINGS:When compared with study of the prior day, the patient has been extubated with removal of endotracheal and nasogastric tubes. Chest drains mediastinal drain and Juniata-Maryanne catheter remain in place. Mild pulmonary vascular congestion with bibasilar atelectasis with no pneumothorax IMPRESSION: Mild failure. No pneumothorax. Bibasilar atelectasis. Extubation. Electronically signed by: Jesus Omer M.D. Maureen Martinez LABOR CUSTODIAN IMG XR PROCEDURES Final Result * (ABNORMAL) Protime-INR (01/01/2025 2:36 AM CDT) PT 17.0(H) 9.7 - 13.0 sec INR 1.56(H) 0.90 - 1.20 ARON BHAT Comment: Interpretive data Oral anticoagulant therapeutic ranges: Venous thromboembolism prophylaxis or treatment: 2.0-3.0 CARDIOLOGY Standard range: 2.0-3.0 High-intensity range: 2.5-3.5 Refer to indication-specific guidelines for appropriate target ranges for prosthetic heart valve replacement. Current interpretive data was last revised on 2019. Blood 01/01/2025 2:36 AM CDT 01/01/2025 2:36 AM CDT Maureen Martinez LABOR CUSTODIAN LAB BLOOD ORDERABLES Fin al Result Performing Organization Address [facility] Co de Phone Number ARON BHAT [address] [place] [address] * (ABNORMAL) Fibrinogen (01/01/2025 2:36 AM CDT) Fibrinogen 463(H) 170 - 400 mg/dL Blood 01/01/2025 2:36 AM CDT 01/01/2025 2:36 AM CDT Maureen Carmen Michelle LABOR CUSTODIAN LAB BLOOD ORDERABLES Fin al Result Performing Organization Address [facility] de Phone Number ARON BHAT [address] [place] [address] * (ABNORMAL) CBC without differential (01/01/2025 2:36 AM CDT) WBC 4.51 3.80 - 9.90 K/cumm Hgb 8.2(L) 13.0 - 17.5 g/dL [facility] Hct 24.4(L) 38.9 - 50.3 % [facility] Plt 75(L) 150 - 400 K/cumm [facility] MPV 10.0 9.1 - 12.3 fL [facility] RBC 2.75(L) 4.30 - 5.80 M/cumm [facility] MCV 88.7 81.3 - 96.4 fL [facility]ER MCH 29.8 27.1 - 33.[address] [facility] MCHC 33.6 32.3 - 35.7 g/dL [facility] RDW CV 14.6 11.1 - 14.9 % [facility] RDW SD 46.8 35.7 - 48.[address] [facility] NRBC abs 0.00 0.00 - 0.01 K/cumm [facility] Blood 01/01/2025 2:36 AM CDT 01/01/2025 2:36 AM CDT Maureen Masseycamille Martinez LABOR CUSTODIAN LAB BLOOD ORDERABLES Fin al Result Performing Organization Address City/[facility] [address]/[facility] Co de Phone Number ARON BHAT [address] [address] [facility] [employer] [place], [place] [phone] * (ABNORMAL) Calcium, ionized, whole blood (01/01/2025 2:31 AM CDT) Ca, ionized, bld 4.44(L) 4.50 - 5.10 mg/dL Blood 01/01/2025 2:31 AM CDT 01/01/2025 2:36 AM CDT Maureen Morales Michelle LABOR CUSTODIAN LAB BLOOD ORDERABLES Fin al Result Performing Organization Address [facility] Phone Number ARON BHAT [address] [place] [employer] [place] [address] * eGFR (01/01/2025 2:31 AM CDT) eGFR 64 >=60 mL/min/1. 73 m2 Comment: Interpretive Data Reference Interval Normal >/= 90 mL/min/1.73m2 Mildly decreased* 60 - 89 mL/min/1.73m2 Mildly to moderately decreased 45 - 59 mL/min/1.73m2 Moderately to severely decreased 30 - 44 mL/min/1.73m2 Severely decreased 15 - 29 mL/min/1.73m2 Kidney Failure < 15 mL/min/1.73m2 *Relative to young adult level Estimated glomerular filtration rate is determined by the 2020 CKD-EPI equation recommended by the National Kidney Foundation (A Unifying Approach to GFR Estimation: Recommendations of the NKF-ASK Task Force on Reassessing the Inclusion of Race in Diagnosing Kidney Disease, JASN 202). The CKD-EPI equation should not be used for patients with unstable renal function and has not been validated in children and those over 70. Current interpretive data was last reviewed 2021. Blood 01/01/2025 2:31 AM CDT 01/01/2025 2:39 AM CDT Maureen Morales Michelle LABOR CUSTODIAN LAB BLOOD ORDERABLES Fin al Result Performing Organization Address City/[facility] [address]/[facility] Co de Phone Number ARON BHAT [address] [address] [facility] [employer] [place] [address] * Phosphorus (01/01/2025 2:31 AM CDT) Phosphorus, pl 3.5 2.3 - 4.5 mg/dL Blood 01/01/2025 2:31 AM CDT 01/01/2025 2:36 AM CDT Maureen Carmen Michelle LABOR CUSTODIAN LAB BLOOD ORDERABLES Fin al Result Performing Organization Address [facility] de Phone Number ARON BHAT [address] [address] [facility] [employer] [place] [address] * Magnesium (01/01/2025 2:31 AM CDT) Magnesium 2.0 1.4 - 2.5 mg/dL Blood 01/01/2025 2:31 AM CDT 01/01/2025 2:36 AM CDT Maureen Martinez LABOR CUSTODIAN LAB BLOOD ORDERABLES Fin al Result Performing Organization Address [facility] de Phone Number LETIBERTO BHAT [address] [address] [facility] [employer] [place] [address] * (ABNORMAL) Bilirubin, direct (01/01/2025 2:31 AM CDT) Bilirubin, direct 1.3(H) 0.1 - 0.3 mg/dL Blood 01/01/2025 2:31 AM CDT 01/01/2025 2:36 AM CDT Maureen Martinez LABOR CUSTODIAN LAB BLOOD ORDERABLES Fin al Result Performing Organization Address [facility] [address] [facility] Co de Phone Number ARON BHAT [address] [address] [facility] [place] [employer] [place] [address] * (ABNORMAL) Comprehensive metabolic panel (01/01/2025 2:31 AM CDT) Sodium 147(H) 135 - 145 mmol/L Potassium, pl 4.0 3.3 - 4.9 mmol/L [facility] Chloride 112(H) 97 - 110 mmol/L [facility] CO2 23 22 - 32 mmol/L [facility] Anion gap 12 2 - 15 mmol/L [facility] BUN 22 6 - 25 mg/dL [facility] Creatinine 1.16 0.80 - 1.30 mg/dL [facility] Comment:Icteric sample, test results may be affected. Glucose 140 70 - 199 mg/dL [facility] Comment: Interpretive Data Fasting glucose >/= 126 mg/dl is diagnostic for diabetes. Fasting is defined as no caloric intake for at least 8 hours. Fasting glucose between 100 mg/dl to 125 mg/dl is diagnostic of prediabetes. In a patient with classic symptoms of hyperglycemia or hyperglycemic crisis, a random glucose >/= 200 mg/dl is diagnostic for diabetes. In the absence of unequivocal hyperglycemia, results should be confirmed by repeat testing. The classification and Diagnosis of Diabetes Diabetes Care 202; 46: S19-S40. Current interpretive data was last revised 2022. Calcium 8.2(L) 8.5 - 10.3 mg/dL [facility] Bilirubin, total 2.2(H) 0.1 - 1.2 mg/dL [facility] Protein, pl 5.1(L) 6.5 - 8.5 g/dL [facility] Albumin 3.4(L) 3.5 - 5.0 g/dL [facility] Alk phos 44 40 - 130 Units/L [facility] ALT 12 7 - 55 Units/L [facility] AST 39 10 - 50 Units/L [facility] Blood 01/01/2025 2:31 AM CDT 01/01/2025 2:36 AM CDT us Maureen Martinez NP LAB BLOOD ORDERABLES Fin al Result [facility] [address] [address] Department [place] [address] * POCT glucose (12/31/2024 11:45 PM CDT) Glucose, POC 143 70 - 199 mg/dL POC Performer [id number] [facility] Blood 12/31/2024 11:4 5 PM CDT 12/31/2024 11:45 PM CDT Angel [place] MD LAB POCT ORDERABLES - DEVICE Final Result Performing Organization Address [facility] Co de Phone Number ARON BHAT [address] [address] [facility] [place] [employer] [place] [address] * POCT glucose (12/31/2024 9:49 PM CDT) Glucose, POC 131 70 - 199 mg/dL POC Performer [id number] [facility] Blood 12/31/2024 9:49 PM CDT 12/31/2024 9:49 PM CDT Angel [place] MD LAB POCT ORDERABLES - DEVICE Final Result Performing Organization Address [facility] de Phone Number ARON BHAT [address] [address] [facility] [place] [employer] [place] [address] * POCT glucose (12/31/2024 8:18 PM CDT) Glucose, POC 106 70 - 199 mg/dL POC Performer [id number] [facility] Blood 12/31/2024 8:18 PM CDT 12/31/2024 8:18 PM CDT Angel [place] MD LAB POCT ORDERABLES - DEVICE Final Result Performing Organization Address [facility] Co de Phone Number ARON BHAT [address] [address] [facility] [place] [employer] [place] [address] * Critical Care (12/31/2024 7:12 PM CDT) Narrative Iain Moon MD - 12/31/2024 7:12 PM CDT Iain Moon MD 01/01/2025 6:19 PM Critical Care Performed by: Olvin Tyler NP Authorized by: Olvin Tyler NP CRITICAL CARE: Team: ELISA Shift: PM Level of Billing: Critical Care My time spent with this patient was 45 minutes: Critical Provider Statement: I have seen and examined the patient on this day of service. I have reviewed and confirmed the history, physical exam, laboratory and radiologic data as documented in the signed ICU note. I have reviewed and discussed my treatment plan with the ICU team and other medical/client support consultant staff, making frequent assessments and decisions regarding this patient's complex medical care. Critical Care time was exclusive of time spent performing separately billed procedures, treating other patients, and teaching. This time was in addition to and separate from critical care provided by other practitioners in my group on this day of service. Critical Care was necessary to treat or prevent imminent or life-threatening deterioration of the following conditions: I spent time reviewing and interpreting data from bedside monitors, laboratory results, and imaging, I spent time discussing the management of this critically ill patient with consultants and the medical staff and I spent time documenting in the medical record us Olvin Tyler NP IN CLINIC/BEDSIDE ORDER HARVINDER Final Result * POCT glucose (12/31/2024 6:43 PM CDT) Glucose, POC 104 70 - 199 mg/dL POC Performer [id number] ARON BHAT Blood 12/31/2024 6:43 PM CDT 12/31/2024 6:43 PM CDT us Angel [place] MD LAB POCT ORDERABLES - DEVICE Final Result ARON [address] [place] [address] * eGFR (12/31/2024 5:57 PM CDT) Pathologist [facility] eGFR 62 >=60 mL/min/1. 73 m2 Comment: Interpretive Data Reference Interval Normal >/= 90 mL/min/1.73m2 Mildly decreased* 60 - 89 mL/min/1.73m2 Mildly to moderately decreased 45 - 59 mL/min/1.73m2 Moderately to severely decreased 30 - 44 mL/min/1.73m2 Severely decreased 15 - 29 mL/min/1.73m2 Kidney Failure < 15 mL/min/1.73m2 *Relative to young adult level Estimated glomerular filtration rate is determined by the 2020 CKD-EPI equation recommended by the National Kidney Foundation (A Unifying Approach to GFR Estimation: Recommendations of the NKF-ASK Task Force on Reassessing the Inclusion of Race in Diagnosing Kidney Disease, JASN 2020). The CKD-EPI equation should not be used for patients with unstable renal function and has not been validated in children and those over 70. Current interpretive data was last reviewed 2021. Blood 12/31/2024 5:57 PM CDT 12/31/2024 6:06 PM CDT us Angel [place] MD LAB BLOOD ORDERABLES Final R esult [facility] [address] [address] [place] [address] * (ABNORMAL) CBC without differential (12/31/2024 5:57 PM CDT) WBC 5.29 3.80 - 9.90 K/cumm Hgb 8.4(L) 13.0 - 17.5 g/dL [facility] Hct 24.8(L) 38.9 - 50.3 % [facility] Plt 94(L) 150 - 400 K/cumm [facility] MPV 11.0 9.1 - 12.3 fL [facility] RBC 2.82(L) 4.30 - 5.80 M/cumm [facility] MCV 87.9 81.3 - 96.4 fL [facility] MCH 29.8 27.1 - 33.3 pg [facility] MCHC 33.9 32.3 - 35.7 g/dL [facility] RDW CV 14.2 11.1 - 14.9 % [facility] RDW SD 45.2 35.7 - 48.1 fL [facility] NRBC abs 0.00 0.00 - 0.01 K/cumm [facility] Blood 12/31/2024 5:57 PM CDT 12/31/2024 6:07 PM CDT us Angel [place] MD LAB BLOOD ORDERABLES Final R esult ARON BHAT [address] [address] [place] [address] * (ABNORMAL) Basic metabolic panel (12/31/2024 5:57 PM CDT) Sodium 149(H) 135 - 145 mmol/L Potassium, pl 3.6 3.3 - 4.9 mmol/L [facility] Chloride 112(H) 97 - 110 mmol/L [facility] CO2 25 22 - 32 mmol/L [facility] Anion gap 12 2 - 15 mmol/L [facility] BUN 19 6 - 25 mg/dL [facility] Creatinine 1.20 0.80 - 1.30 mg/dL [facility] Comment:Icteric sample, test results may be affected. Glucose 104 70 - 199 mg/dL [facility] Comment: Interpretive Data Fasting glucose >/= 126 mg/dl is diagnostic for diabetes. Fasting is defined as no caloric intake for at least 8 hours. Fasting glucose between 100 mg/dl to 125 mg/dl is diagnostic of prediabetes. In a patient with classic symptoms of hyperglycemia or hyperglycemic crisis, a random glucose >/= 200 mg/dl is diagnostic for diabetes. In the absence of unequivocal hyperglycemia, results should be confirmed by repeat testing. The classification and Diagnosis of Diabetes Diabetes Care 2021; 46: S19-S40. Current interpretive data was last revised 2022. Calcium 8.3(L) 8.5 - 10.3 mg/dL [facility] Blood 12/31/2024 5:57 PM CDT 12/31/2024 6:06 PM CDT us Angel [place] MD LAB BLOOD ORDERABLES Final R esult ARON BHAT [address] [address] [place] [address] * Transfuse platelets (12/31/2024 5:28 PM CDT) Blood us Angel [place] MD BLOOD TRANSFUSION ORDERABLES Final Result Performing Organization Address [facility] Co de Phone Number ARON [address] [place] [address] * Calcium, ionized, whole blood (12/31/2024 5:04 PM CDT) Ca, ionized, bld 4.67 4.50 - 5.10 mg/dL Blood 12/31/2024 5:04 PM CDT 12/31/2024 6:05 PM CDT us Maureen Martinez NP LAB BLOOD ORDERABLES Fin al Result Performing Organization Address [facility] de Phone Number ARON [address] [address] [place] [address] * Clinical pathology report (12/31/2024 5:04 PM CDT) Miscellaneous 12/31/2024 5:0 4 PM CDT 01/01/2025 8:43 AM CDT Narrative 01/01/2025 11:10 AM CDT EPIC results best viewed via link to PDF [facility] Department of Pathology [address] [place] [id number] Final Report Note to Patients: This report may contain a detailed description of human tissue sent by a health care provider to the laboratory for pathologic evaluation. The content of this report is essential for diagnosis and may provide important critical findings. This information may be unfamiliar to patients to review without a medical professional present. It is advised that the patient review this report in the presence of a health care provider who can answer questions and explain the details. Patient Name: DENISE JAMES Address: [facility] [address], [place] [address] Gender: M : 1945 (Age: 79) Service: Cardiothoracic Location: [facility] #: [id number] Patient Type: [facility] Taken: 12/31/2024 Received: 01/01/2025 Accessioned: 01/01/2025 Physician(s): CLAUDIA Moore Specimen(s) Received A: Blood Peripheral Blood Smear ReviewReported:01/01/2025 Note is made of the patient's history of thrombocytopenia, somewhat improving. Two peripheral smears are reviewed. RBC morphology is relatively unremarkable. Significant population of schistocytes is not seen. Leukocytes appear present in typical numbers and not demonstrate significant morphologic abberation. A population of circulating blast forms or atypical lymphocytes is not seen. The platelet count appears mildly diminished. Platelet clumping is not observed. Platelets are predominantly small and well granulated. Manual differential- Neutrophils 89%; band forms 2%; lymphocytes 6%; monocytes 3% Interpretation: Peripheral smear review- Normochromic normocytic anemia with minimal anisopoikilocytosis; consider combined nutritional deficiencies, renal failure, other etiologies Thrombocytopenia, mild; platelet clumping and significant schistocyte population not demonstrated Sandee Khalil M.D.Report Electronically Reviewed and Signed Out By Sandee Khalil M.D. 01/01/2025 11:07:53 The performance characteristics of some immunohistochemical stains, fluorescence in-situ hybridization tests and immunophenotyping by flow cytometry cited in this report (if any) were determined by the Surgical Pathology Department at [facility] as part of an ongoing quality assurance practice manager program and in compliance with federally mandated regulations drawn from the Clinical Laboratory Improvement Act of 1988 (CLIA '88). Some of these tests rely on the use of analyte specific reagents and are subject to specific labeling requirements by the US Food and Drug Administration. Such diagnostic tests may only be performed in a facility that is certified by the Department of Health and Human Services as a high complexity laboratory under CLIA '88. The FDA has determined that such clearance or approval is not necessary. This test is used for clinical purposes. It should not be regarded as investigational or for research. Nevertheless, federal rules concerning the medical use of analyte specific reagents require that the following disclaimer be attached to the report: This test was developed and its performance characteristics determined by the Surgical Pathology Department [facility]. It has not been cleared or approved by the U. S. Food and Drug Administration. REPORT IMAGES AND SCANNED DOCUMENTS, IF INCLUDED, ONLY VIEWABLE IN PDF VERSION OF REPORTe o us Maureen Martinez NP LAB PATHOLOGY ORDERABLES Final Result * POCT glucose (12/31/2024 4:52 PM CDT) Glucose, POC 105 70 - 199 mg/dL POC Performer [id number] CERNER CH Blood 12/31/2024 4:52 PM CDT 12/31/2024 4:52 PM CDT Angel [place] MD LAB POCT ORDERABLES - DEVICE Final Result Performing Organization Address [facility] Co de Phone Number ARON [address] [address] [employer] [place], [place] [id number] * POCT glucose (12/31/2024 3:46 PM CDT) Glucose, POC 118 70 - 199 mg/dL POC Performer [id number] CERNER CH Blood 12/31/2024 3:46 PM CDT 12/31/2024 3:46 PM CDT Angel [place] MD LAB POCT ORDERABLES - DEVICE Final Result Performing Organization Address [facility] de Phone Number LETIBERTO [address] [address] Department [place] [employer] [place] [address] * POCT glucose (12/31/2024 2:59 PM CDT) Glucose, POC 110 70 - 199 mg/dL POC Performer [id number] CERNER CH Blood 12/31/2024 2:59 PM CDT 12/31/2024 2:59 PM CDT Angel [place] MD LAB POCT ORDERABLES - DEVICE Final Result Performing Organization Address [facility]/State/ZIP Co de Phone Number ARON BHAT [address] [address] [facility] [place] [place] [address] * POCT glucose (12/31/2024 1:43 PM CDT) Glucose, POC 118 70 - 199 mg/dL POC Performer [id number] CERNER CH Blood 12/31/2024 1:43 PM CDT 12/31/2024 1:43 PM CDT Angel [place] MD LAB POCT ORDERABLES - DEVICE Final Result Performing Organization Address [facility] Co de Phone Number ARON BHAT [address] [address] [facility] [place] [place] [address] * POCT glucose (12/31/2024 12:47 PM CDT) Glucose, POC 123 70 - 199 mg/dL POC Performer [id number] CERNER CH Blood 12/31/2024 12:4 7 PM CDT 12/31/2024 12:47 PM CDT Angel [place] MD LAB POCT ORDERABLES - DEVICE Final Result Performing Organization Address [facility] Co de Phone Number ARON BHAT [address] [address] [facility] [place] [place] [address] * POCT glucose (12/31/2024 11:46 AM CDT) Glucose, POC 131 70 - 199 mg/dL POC Performer [id number] CERNER CH Blood 12/31/2024 11:4 6 AM CDT 12/31/2024 11:46 AM CDT Angel [place] MD LAB POCT ORDERABLES - DEVICE Final Result Performing Organization Address [facility] [address] [facility] Co de Phone Number ARON BHAT [address] [address] [facility] [place] [employer] [place] [address] * POCT glucose (12/31/2024 10:38 AM CDT) Glucose, POC 136 70 - 199 mg/dL POC Performer [id number] CERNER CH Blood 12/31/2024 10:3 8 AM CDT 12/31/2024 10:38 AM CDT Angel [place] MD LAB POCT ORDERABLES - DEVICE Final Result Performing Organization Address [facility] de Phone Number ARON BHAT [address] [place] [address] * (ABNORMAL) Blood gas, arterial (12/31/2024 10:33 AM CDT) pH, Art 7.45 7.35 - 7.45 PCO2, Arterial 36 35 - 45 mmHg CERNER CH PO2, Arterial 89 83 - 108 mmHg CERNER CH HCO3 Art (Calculated) 25 20 - 30 mmol/L CERNER CH BE, art 0 mmol/L CERNER CH Comment: Interpretive Data No Reference Range Established Current Interpretive Data was last revised on 2017 O2 Sat Art (Measured) 98(H) 90 - 95 % CERNER CH Blood 12/31/2024 10:3 3 AM CDT 12/31/2024 10:42 AM CDT Angel [place] MD LAB BLOOD ORDERABLES Final R esult Performing Organization Address [facility] de Phone Number ARON BHAT [address] [place] [address] * eGFR (12/31/2024 10:09 AM CDT) eGFR 67 >=60 mL/min/1. 73 m2 Comment: Interpretive Data Reference Interval Normal >/= 90 mL/min/1.73m2 Mildly decreased* 60 - 89 mL/min/1.73m2 Mildly to moderately decreased 45 - 59 mL/min/1.73m2 Moderately to severely decreased 30 - 44 mL/min/1.73m2 Severely decreased 15 - 29 mL/min/1.73m2 Kidney Failure < 15 mL/min/1.73m2 *Relative to young adult level Estimated glomerular filtration rate is determined by the 2020 CKD-EPI equation recommended by the National Kidney Foundation (A Unifying Approach to GFR Estimation: Recommendations of the NKF-ASK Task Force on Reassessing the Inclusion of Race in Diagnosing Kidney Disease, JASN 2020). The CKD-EPI equation should not be used for patients with unstable renal function and has not been validated in children and those over 70. Current interpretive data was last reviewed 2021. Blood 12/31/2024 10:0 9 AM CDT 12/31/2024 10:59 AM CDT Angel [place] MD LAB BLOOD ORDERABLES Final R [facility] Performing Organization Address [facility] Co de Phone Number ARON BHAT [address] [address] [employer] [place], [place] [id number] * aPTT (12/31/2024 10:09 AM CDT) aPTT 31 28 - 38 sec Comment: Interpretive Data Heparin therapeutic range: 66.0 - 100.0 seconds. Range based on correlation with therapeutic heparin activity range of 0.3 - 0.7 Units/mL. Current interpretive data was last revised on 2023. Blood 12/31/2024 10:0 9 AM CDT 12/31/2024 11:00 AM CDT Angel [place] MD LAB BLOOD ORDERABLES Final R esult Performing Organization Address City/[facility] Co de Phone Number ARON [address] [place] [address] * (ABNORMAL) Protime-INR (12/31/2024 10:09 AM CDT) PT 14.3(H) 9.7 - 13.0 sec INR 1.32(H) 0.90 - 1.20 ARON BHAT Comment: Interpretive data Oral anticoagulant therapeutic ranges: Venous thromboembolism prophylaxis or treatment: 2.0-3.0 CARDIOLOGY Standard range: 2.0-3.0 High-intensity range: 2.5-3.5 Refer to indication-specific guidelines for appropriate target ranges for prosthetic heart valve replacement. Current interpretive data was last revised on 2019. Blood 12/31/2024 10:0 9 AM CDT 12/31/2024 11:00 AM CDT Angel [place] MD LAB BLOOD ORDERABLES Final R esult Performing Organization Address City/[facility] [address] [facility]/ZIP Co de Phone Number ARON BHAT [address] [address] [place] [address] * (ABNORMAL) CBC without differential (12/31/2024 10:09 AM CDT) WBC 6.37 3.80 - 9.90 K/cumm Hgb 9.5(L) 13.0 - 17.5 g/dL [facility] Hct 27.5(L) 38.9 - 50.3 % [facility] Plt 109(L) 150 - 400 K/cumm [facility] MPV 10.9 9.1 - 12.3 fL [facility] RBC 3.17(L) 4.30 - 5.80 M/cumm [facility] MCV 86.8 81.3 - 96.4 fL [facility] MCH 30.0 27.1 - 33.3 pg [facility] MCHC 34.5 32.3 - 35.7 g/dL [facility] RDW CV 14.2 11.1 - 14.9 % [facility] RDW SD 45.2 35.7 - 48.1 fL [facility] NRBC abs 0.00 0.00 - 0.01 K/cumm [facility] Blood 12/31/2024 10:0 9 AM CDT 12/31/2024 11:00 AM CDT Angel [place] MD LAB BLOOD ORDERABLES Final R esult Performing Organization Address City/[facility] [address] [facility]/ZIP Co de Phone Number ARON BHAT [address] [address] Department [place] [place] [address] * (ABNORMAL) Hepatic function panel (12/31/2024 10:09 AM CDT) Bilirubin, total 1.8(H) 0.1 - 1.2 mg/dL Bilirubin, direct 1.0(H) 0.1 - 0.3 mg/dL CERNER CH Protein, pl 5.0(L) 6.5 - 8.5 g/dL CERNER CH Albumin 3.5 3.5 - 5.0 g/dL CERNER CH Alk phos 41 40 - 130 Units/L CERNER CH ALT 15 7 - 55 Units/L CERNER CH AST 47 10 - 50 Units/L CERNER CH Blood 12/31/2024 10:0 9 AM CDT 12/31/2024 12:51 PM CDT Gayathri Braga MD LAB BLOOD ORDERABLES Jazmín l Result [facility] [address] [address] [place] [address] * (ABNORMAL) Basic metabolic panel (12/31/2024 10:09 AM CDT) Sodium 148(H) 135 - 145 mmol/L Potassium, pl 3.5 3.3 - 4.9 mmol/L CERNER CH Chloride 111(H) 97 - 110 mmol/L CERNER CH CO2 24 22 - 32 mmol/L CERNER CH Anion gap 13 2 - 15 mmol/L CERNER BUN 20 6 - 25 mg/dL CERNER Creatinine 1.12 0.80 - 1.30 mg/dL CERNER CH Comment:Icteric sample, test results may be affected. Glucose 132 70 - 199 mg/dL [facility] Comment: Interpretive Data Fasting glucose >/= 126 mg/dl is diagnostic for diabetes. Fasting is defined as no caloric intake for at least 8 hours. Fasting glucose between 100 mg/dl to 125 mg/dl is diagnostic of prediabetes. In a patient with classic symptoms of hyperglycemia or hyperglycemic crisis, a random glucose >/= 200 mg/dl is diagnostic for diabetes. In the absence of unequivocal hyperglycemia, results should be confirmed by repeat testing. The classification and Diagnosis of Diabetes Diabetes Care 202; 46: S19-S40. Current interpretive data was last revised 2022. Calcium 8.3(L) 8.5 - 10.3 mg/dL CERNER CH Blood 12/31/2024 10:0 9 AM CDT 12/31/2024 10:59 AM CDT Angel [place] MD LAB BLOOD ORDERABLES Final R esult Performing Organization Address [facility] Co de Phone Number ARON BHAT [address] [address] [place] [address] * POCT glucose (12/31/2024 9:28 AM CDT) Glucose, POC 135 70 - 199 mg/dL POC Performer [id number] CERNER CH Blood 12/31/2024 9:28 AM CDT 12/31/2024 9:28 AM CDT Result [facility] Angel [place] MD LAB POCT ORDERABLES - DEVICE Final Result Performing Organization Address [facility] de Phone Number ARON BHAT [address] [place] [address] * (ABNORMAL) Blood gas, arterial (12/31/2024 9:24 AM CDT) pH, Art 7.45 7.35 - 7.45 PCO2, Arterial 35 35 - 45 mmHg CERNER CH PO2, Arterial 94 83 - 108 mmHg CERNER CH HCO3 Art (Calculated) 25 20 - 30 mmol/L CERNER CH BE, art 0 mmol/L CERNER CH Comment: Interpretive Data No Reference Range Established Current Interpretive Data was last revised on 2017 O2 Sat Art (Measured) 98(H) 90 - 95 % CERNER CH Blood 12/31/2024 9:24 AM CDT 12/31/2024 9:35 AM CDT Angel [place] MD LAB BLOOD ORDERABLES Final R esult Performing Organization Address [facility] Co de Phone Number ARON BHAT [address] [address] [place] [address] * POCT glucose (12/31/2024 8:26 AM CDT) Glucose, POC 97 70 - 199 mg/dL POC Performer [id number] [facility] Blood 12/31/2024 8:26 AM CDT 12/31/2024 8:26 AM CDT us Angel [place] MD LAB POCT ORDERABLES - DEVICE Final Result Performing Organization Address [facility] Phone Number ARON BHAT [address] [address] [place] [address] * ECG 12 lead (12/31/2024 7:20 AM CDT) 12/31/2024 7:20 AM CDT Narrative [facility] - 12/31/2024 4:48 PM CDT Vent Rate: 80 bpm RR Interval: 743 msec CO Interval: 252 msec QRS Duration: 82 msec QT Interval: 399 msec QTC Interval: 435 msec P-R-T Independence: 84 - 0 - 27 degrees IMPRESSION: SINUS RHYTHM WITH FIRST DEGREE AV BLOCK LOW QRS VOLTAGE IN EXTREMITY LEADS [QRS DEFLECTION < 0.5 mV IN LIMB LEADS] NONSPECIFIC ST \T\ T-WAVE ABNORMALITY ABNORMAL ECG NO CHANGE FROM PREVIOUS TRACING NOTED Electronically Signed By: Harris Caro MD us Angel [place] MD ECG ORDERABLES Final Result Performing Organization Address [facility] de Phone Number [facility] [employer] [facility] * Critical Care (12/31/2024 7:00 AM CDT) Narrative Gayathri Braga MD - 12/31/2024 7:00 AM CDT Gayathri Braga MD 01/03/2025 6:24 PM Critical Care Performed by: Maureen Martinez NP Authorized by: Maureen Martinez NP CRITICAL CARE: Team: DIPESH Shift: AM Level of Billing: Critical Care My time spent with this patient was 120 minutes: Critical Provider Statement: I have seen and examined the patient on this day of service. I have reviewed and confirmed the history, physical exam, laboratory and radiologic data as documented in the signed ICU note. I have reviewed and discussed my treatment plan with the ICU team and other medical/client support consultant staff, making frequent assessments and decisions regarding this patient's complex medical care. Critical Care time was exclusive of time spent performing separately billed procedures, treating other patients, and teaching. This time was in addition to and separate from critical care provided by other practitioners in my group on this day of service. Critical Care was necessary to treat or prevent imminent or life-threatening deterioration of the following conditions: I spent time reviewing and interpreting data from bedside monitors, laboratory results, and imaging, I spent time discussing the management of this critically ill patient with consultants and the medical staff and I spent time documenting in the medical record us Maureen Martinez LABOR CUSTODIAN IN CLINIC/BEDSIDE ORDERA BLES Final Result * POCT glucose (12/31/2024 6:35 AM CDT) Glucose, POC 107 70 - 199 mg/dL POC Performer [id number] ARON BHAT Blood 12/31/2024 6:35 AM CDT 12/31/2024 6:35 AM CDT us Angel [place] MD LAB POCT ORDERABLES - DEVICE Final Result Performing Organization Address City/State/[facility] Co de Phone Number ARON [address] [address] Department of Laboratories [place], [place] [id number] * XR Chest 1 View - Portable - in AM (12/31/2024 5:47 AM CDT) Anatomical Region Laterality Modality Body, Chest N/A Computed Radiogr aphy 12/31/2024 8:11 AM CDT Impressions 12/31/2024 8:11 AM CDT Findings as described above. Electronically signed by: Sangeeta Harmon M.D. Narrative 12/31/2024 8:11 AM CDT EXAMINATION: XR CHEST 1 VIEW HISTORY: The patient is a 79-year-old male who has had cardiac surgery. Comparison made with the previous study dated 12/30/2024. TECHNIQUE: AP portable view of the chest. FINDINGS: Heart not enlarged. Aortic atherosclerosis. No failure. Streaky left lower lobe infiltrate with the remainder of the lungs being clear. Endotracheal tube is in good position. The tip of the Juniata-Maryanne catheter is in the undivided main pulmonary artery. Bilateral thoracostomy tubes and mediastinal drain in place. Procedure Note Sangeeta Harmon MD - 12/31/2024 EXAMINATION: XR CHEST 1 VIEW HISTORY: The patient is a 79-year-old male who has had cardiac surgery. Comparison made with the previous study dated 12/30/2024. TECHNIQUE: AP portable view of the chest. FINDINGS: Heart not enlarged. Aortic atherosclerosis. No failure. Streaky left lower lobe infiltrate with the remainder of the lungs being clear. Endotracheal tube is in good position. The tip of the Juniata-Maryanne catheter is in the undivided main pulmonary artery. Bilateral thoracostomy tubes and mediastinal drain in place. IMPRESSION: Findings as described above. Electronically signed by: Sangeeta Harmon M.D. us Maureen Martinez LABOR CUSTODIAN IMG XR PROCEDURES Final Result * POCT glucose (12/31/2024 5:31 AM CDT) Glucose, POC 123 70 - 199 mg/dL POC Performer [id number] ARON BHAT Blood 12/31/2024 5:31 AM CDT 12/31/2024 5:31 AM CDT us Angel [place] MD LAB POCT ORDERABLES - DEVICE Final Result ARON BHAT [address] [address] [place] [address] * Calcium, ionized, whole blood (12/31/2024 5:19 AM CDT) Ca, ionized, bld 4.69 4.50 - 5.10 mg/dL Blood 12/31/2024 5:19 AM CDT 12/31/2024 5:47 AM CDT Angel [place] MD LAB BLOOD ORDERABLES Final R esult Performing Organization Address [facility] Co de Phone Number ARON BHAT [address] [address] [facility] [place] [address] * (ABNORMAL) Blood gas, arterial (12/31/2024 5:19 AM CDT) pH, Art 7.46(H) 7.35 - 7.45 PCO2, Arterial 37 35 - 45 mmHg CERNER CH PO2, Arterial 91 83 - 108 mmHg [facility] HCO3 Art (Calculated) 27 20 - 30 mmol/L CERNER CH BE, art 2 mmol/L CERNER CH Comment: Interpretive Data No Reference Range Established Current Interpretive Data was last revised on 2017 O2 Sat Art (Measured) 97(H) 90 - 95 % [facility] Blood 12/31/2024 5:19 AM CDT 12/31/2024 5:35 AM CDT Angel [place] MD LAB BLOOD ORDERABLES Final R esult Performing Organization Address [facility] de Phone Number ARON BHAT [address] [address] [facility] [place] [place] [address] * POCT glucose (12/31/2024 4:25 AM CDT) Glucose, POC 122 70 - 199 mg/dL POC Performer [id number] [facility] Blood 12/31/2024 4:25 AM CDT 12/31/2024 4:25 AM CDT Angel [place] MD LAB POCT ORDERABLES - DEVICE Final Result Performing Organization Address [facility] de Phone Number ARON BHAT [address] [address] [facility] [place] [place] [address] * Oxyhemoglobin, central venous (12/31/2024 4:04 AM CDT) Oxyhemoglobin, CV 62.5 % Comment: Interpretive Data No reference range established. Current interpretive data was last revised 2019. Blood 12/31/2024 4:04 AM CDT 12/31/2024 4:29 AM CDT Angel [place] MD LAB BLOOD ORDERABLES Final R esult Performing Organization Address City/[facility] [address] [facility] Co de Phone Number ARON BHAT [address] [address] [place] [place] [address] * Transfuse RBC (12/31/2024 3:57 AM CDT) Blood Angel [place] MD BLOOD TRANSFUSION ORDERABLES Final Result Performing Organization Address [facility] de Phone Number LETIBERTO BHAT [address] [address] [place] [place] [address] * eGFR (12/31/2024 3:46 AM CDT) eGFR 68 >=60 mL/min/1. 73 m2 Comment: Interpretive Data Reference Interval Normal >/= 90 mL/min/1.73m2 Mildly decreased* 60 - 89 mL/min/1.73m2 Mildly to moderately decreased 45 - 59 mL/min/1.73m2 Moderately to severely decreased 30 - 44 mL/min/1.73m2 Severely decreased 15 - 29 mL/min/1.73m2 Kidney Failure < 15 mL/min/1.73m2 *Relative to young adult level Estimated glomerular filtration rate is determined by the 2020 CKD-EPI equation recommended by the National Kidney Foundation (A Unifying Approach to GFR Estimation: Recommendations of the NKF-ASK Task Force on Reassessing the Inclusion of Race in Diagnosing Kidney Disease, JASN 2020). The CKD-EPI equation should not be used for patients with unstable renal function and has not been validated in children and those over 70. Current interpretive data was last reviewed 2021. Blood 12/31/2024 3:46 AM CDT 12/31/2024 3:54 AM CDT us Angel [place] MD LAB BLOOD ORDERABLES Final R esult ARON [address] [address] [place] [address] * (ABNORMAL) Differential, auto (12/31/2024 3:46 AM CDT) Neutrophil abs 6.32 1.50 - 6.50 K/cumm Imm gran abs 0.03 0.00 - 0.10 K/cumm [facility] Lymphocyte abs 0.25(L) 0.80 - 3.30 K/cumm [facility] Monocyte abs 0.57 0.20 - 0.80 K/cumm [facility] Eosinophil abs 0.00 0.00 - 0.50 K/cumm [facility] Basophil abs 0.00 0.00 - 0.10 K/cumm [facility] Neutrophil pct 88.2 % [facility] Comment: Interpretive Data Percent cell count reference ranges are not reported, since discordance with absolute values may lead to misinterpretation of CBC data. Current Interpretive Data was last revised on 2017. Imm gran pct 0.4 % [facility] Comment: Interpretive Data Percent cell count reference ranges are not reported, since discordance with absolute values may lead to misinterpretation of CBC data. Current Interpretive Data was last revised on 2017. Lymphocyte pct 3.5 % [facility] Comment: Interpretive Data Percent cell count reference ranges are not reported, since discordance with absolute values may lead to misinterpretation of CBC data. Current Interpretive Data was last revised on 2017. Monocyte pct 7.9 % [facility] Comment: Interpretive Data Percent cell count reference ranges are not reported, since discordance with absolute values may lead to misinterpretation of CBC data. Current Interpretive Data was last revised on 2017. Eosinophil pct 0.0 % [facility] Comment: Interpretive Data Percent cell count reference ranges are not reported, since discordance with absolute values may lead to misinterpretation of CBC data. Current Interpretive Data was last revised on 2017. Basophil pct 0.0 % [facility] Comment: Interpretive Data Percent cell count reference ranges are not reported, since discordance with absolute values may lead to misinterpretation of CBC data. Current Interpretive Data was last revised on 2017. Blood 12/31/2024 3:46 AM CDT 12/31/2024 3:54 AM CDT us Angel [place] MD LAB BLOOD ORDERABLES Final R esult Performing Organization Address City/[facility] Co de Phone Number [facility] [address] [address] Department of [employer] [place], [place] [id number] * Thyroid Function [place] (12/31/2024 3:46 AM CDT) Pathologist [facility] TSH 0.92 0.30 - 4.20 mcIUnit/mL Blood 12/31/2024 3:46 AM CDT 12/31/2024 3:54 AM CDT us Maureen Martinez NP LAB BLOOD ORDERABLES Fin al Result Performing Organization Address [facility] [facility] [address]/[facility] de Phone Number [facility] [address] [place] [employer] [place] [address] * (ABNORMAL) CBC with auto differential (12/31/2024 3:46 AM CDT) Pathologist [facility] WBC 7.17 3.80 - 9.90 K/cumm Hgb 9.2(L) 13.0 - 17.5 g/dL [facility] Hct 26.5(L) 38.9 - 50.3 % [facility] Plt 127(L) 150 - 400 K/cumm [facility] MPV 10.0 9.1 - 12.3 fL [facility] RBC 3.04(L) 4.30 - 5.80 M/cumm [facility] MCV 87.2 81.3 - 96.4 fL [facility] MCH 30.3 27.1 - 33.3 pg [facility] MCHC 34.7 32.3 - 35.7 g/dL [facility] RDW CV 14.0 11.1 - 14.9 % [facility] RDW SD 44.1 35.7 - 48.1 fL [facility] NRBC abs 0.00 0.00 - 0.01 K/cumm [facility] Blood 12/31/2024 3:46 AM CDT 12/31/2024 3:54 AM CDT Angel [place] MD LAB BLOOD ORDERABLES Final R esult Performing Organization Address [facility] [address]/[facility] Co de Phone Number [facility] [address] [place] [place] [address] * (ABNORMAL) Vitamin D 25 hydroxy (12/31/2024 3:46 AM CDT) Vitamin D 25-OH 17(L) 30 - 80 ng/mL Blood 12/31/2024 3:46 AM CDT 12/31/2024 3:58 AM CDT Maureen Martinez LABOR CUSTODIAN LAB BLOOD ORDERABLES Fin al Result Performing Organization Address [facility] [address]/[facility] de Phone Number [facility] [address] [address] [facility] [place] [employer] [place] [address] * (ABNORMAL) Protime-INR (12/31/2024 3:46 AM CDT) PT 13.3(H) 9.7 - 13.0 sec INR 1.23(H) 0.90 - 1.[address] [facility] Comment: Interpretive data Oral anticoagulant therapeutic ranges: Venous thromboembolism prophylaxis or treatment: 2.0-3.0 CARDIOLOGY Standard range: 2.0-3.0 High-intensity range: 2.5-3.5 Refer to indication-specific guidelines for appropriate target ranges for prosthetic heart valve replacement. Current interpretive data was last revised on 2019. Blood 12/31/2024 3:46 AM CDT 12/31/2024 3:54 AM CDT Maureen Martinez NP LAB BLOOD ORDERABLES Fin al Result Performing Organization Address [facility] [address]/[facility] de Phone Number ARON BHAT [address] [facility] [employer] [place] [address] * Fibrinogen (12/31/2024 3:46 AM CDT) Fibrinogen 301 170 - 400 mg/dL Blood 12/31/2024 3:46 AM CDT 12/31/2024 3:54 AM CDT us Maureen Martinez LABOR CUSTODIAN LAB BLOOD ORDERABLES Fin al Result Performing Organization Address [facility] de Phone Number ARON BHAT [address] [facility] [employer] [place] [address] * Phosphorus (12/31/2024 3:46 AM CDT) Phosphorus, pl 3.2 2.3 - 4.5 mg/dL Blood 12/31/2024 3:46 AM CDT 12/31/2024 3:54 AM CDT us Maureen Martinez LABOR CUSTODIAN LAB BLOOD ORDERABLES Fin al Result Performing Organization Address [facility] de Phone Number ARON BHAT [address] [address] [facility] [employer] [place] [address] * Magnesium (12/31/2024 3:46 AM CDT) Magnesium 2.3 1.4 - 2.5 mg/dL Blood 12/31/2024 3:46 AM CDT 12/31/2024 3:54 AM CDT Angel [place] MD LAB BLOOD ORDERABLES Final R esult Performing Organization Address [facility] [address]/[facility] de Phone Number ARON BHAT [address] [facility] [employer] [place] [address] * Hemoglobin A1c (12/31/2024 3:46 AM CDT) Hgb A1C 5.4 4.0 - 5.6 % Comment:Called corrected res ult to Fidencio David at 12/31/2024 13:33:04 CDT/ Ginette dunaway Estimated Average Glucose 108 mg/dL ARON BHAT Comment: The ADA recommends reporting an estimated Average Glucose (eAG) with all Hemoglobin A1c results using the equation derived from a study of 507 normal and diabetic adults. Minority populations were underrepresented and children were not included. (Diabetes Care 31:5416-9667, 2008). The eAG is not equivalent to a fasting glucose. Blood 12/31/2024 3:46 AM CDT 12/31/2024 3:54 AM CDT us Maureen Martinez NP LAB BLOOD ORDERABLES Uriel jamil Result - Final ARON BHAT [address] Department [place] [address] * (ABNORMAL) Lipid panel (12/31/2024 3:46 AM CDT) Cholesterol 70 30 - 199 mg/dL Comment: Interpretive Data Ages < or = 19 years Acceptable: <170 mg/dL Borderline high: 170-199 mg/dL High: >or= 200 mg/dL Ages > or = 20 years Desirable: <200 mg/dL Borderline high: 200-239 mg/dL High: >or= 240 mg/dL Literature References: 1. Expert Panel on Integrated Guidelines for Cardiovascular Health and Risk Reduction in Children and Adolescents. Pediatrics 2011;128:S213 2. NCEP Expert Panel. Circulation 2004;110:227 Current Interpretive Data was last revised on 2018. Triglycerides 91 <=149 mg/dL ARON BHAT Comment: Interpretive Data Ages < or = 9 years Acceptable: <75 mg/dL Borderline high: 75-99 mg/dL High: >or= 100 mg/dL Ages 10 to 20 years Acceptable: <90 mg/dL Borderline high: 90-129 mg/dL High: >or= 130 mg/dL Ages > or = 20 years Desirable: <150 mg/dL Borderline high: 150-199 mg/dL High: 200-499 mg/dL Very high: >or= 499 mg/dL Literature References: 1. Expert Panel on Integrated Guidelines for Cardiovascular Health and Risk Reduction in Children and Adolescents. Pediatrics 2011;128:S213 2. NCEP Expert Panel. Circulation 2004;110:227 Current Interpretive Data was last revised on 2018. HDL 29(L) >=40 mg/dL ARON BHAT Comment: Interpretive Data Ages < or = 19 years Acceptable: >45 mg/dL Borderline low: 40-45 mg/dL Low: <40 mg/dL Ages > or = 20 years Desirable: >or= 60 mg/dL Low: <40 mg/dL Literature References: 1. Expert Panel on Integrated Guidelines for Cardiovascular Health and Risk Reduction in Children and Adolescents. Pediatrics 2011;128:S213 2. NCEP Expert Panel. Circulation 2004;110:227 Current Interpretive Data was last revised on 2018. LDL, calculated 23 <=129 mg/dL ARON BHAT Comment: Interpretive Data Ages < or = 19 years Acceptable: <110 mg/dL Borderline high: 110-129 mg/dL High: >or= 130 mg/dL Ages > or = 20 years Optimal: <100 mg/dL Near optimal: 100-129 mg/dL Borderline high: 130-159 mg/dL High: >160 mg/dL Calculated using the Ty LDL-C estimating equation. This equation was implemented on 2024. Prior to this date LDL-C was estimated using the Friedewald equation. Literature References: 1. Expert Panel on Integrated Guidelines for Cardiovascular Health and Risk Reduction in Children and Adolescents. Pediatrics 2011;128:S213 2. NCEP Expert Panel. Circulation 2004;110:227 3. Ty Dill al. GLORIA Cardiol. 2019December 26;5(5):540-548. doi: 10.1001/[email or web address] Current Interpretive Data was last revised on 2024. Non-HDL Cholesterol 41 mg/dL ARON BHAT Comment: Interpretive Data Ages < or = 19 years Acceptable: <120 mg/dL Borderline high: 120-144 mg/dL High: >145 mg/dL Ages > or = 20 years When triglycerides are >200 mg/dL, Non-HDL cholesterol is a secondary target of therapy with treatment goals that are 30 mg/dL greater than the LDL cholesterol target. Literature References: 1. Expert Panel on Integrated Guidelines for Cardiovascular Health and Risk Reduction in Children and Adolescents. Pediatrics 2011;128:S213 2. NCEP Expert Panel. Circulation 2004;110:227 Current Interpretive Data was last revised on 2018. Chol/HDL ratio 2 [facility] Blood 12/31/2024 3:46 AM CDT 12/31/2024 3:54 AM CDT us Maureen Martinez NP LAB BLOOD ORDERABLES Abiodun al Result [facility] [address] [place] [address] * (ABNORMAL) Basic metabolic panel (12/31/2024 3:46 AM CDT) Sodium 151(H) 135 - 145 mmol/L Potassium, pl 3.8 3.3 - 4.9 mmol/L [facility] Chloride 116(H) 97 - 110 mmol/L C[facility]ER CO2 26 22 - 32 mmol/L CERNER Anion gap 9 2 - 15 mmol/L [facility] BUN 20 6 - 25 mg/dL [facility] Creatinine 1.11 0.80 - 1.30 mg/dL [facility] Comment:Icteric sample, test results may be affected. Glucose 123 70 - 199 mg/dL [facility] Comment: Interpretive Data Fasting glucose >/= 126 mg/dl is diagnostic for diabetes. Fasting is defined as no caloric intake for at least 8 hours. Fasting glucose between 100 mg/dl to 125 mg/dl is diagnostic of prediabetes. In a patient with classic symptoms of hyperglycemia or hyperglycemic crisis, a random glucose >/= 200 mg/dl is diagnostic for diabetes. In the absence of unequivocal hyperglycemia, results should be confirmed by repeat testing. The classification and Diagnosis of Diabetes Diabetes Care 2021; 46: S19-S40. Current interpretive data was last revised 2022. Calcium 8.6 8.5 - 10.3 mg/dL [facility] Blood 12/31/2024 3:46 AM CDT 12/31/2024 3:54 AM CDT us Angel [place] MD LAB BLOOD ORDERABLES Final R esult Performing Organization Address [facility] [address]/[facility] Co de Phone Number ARON BHAT [address] [employer] [place], [place] [id number] * POCT glucose (12/31/2024 3:24 AM CDT) Glucose, POC 119 70 - 199 mg/dL POC Performer [id number] [facility] Blood 12/31/2024 3:24 AM CDT 12/31/2024 3:24 AM CDT us Angel [place] MD LAB POCT ORDERABLES - DEVICE Final Result Performing Organization Address [facility] [address]/[facility] Co de Phone Number ARON BHAT [address] [address] [place] [place] [address] * POCT glucose (12/31/2024 2:19 AM CDT) Glucose, POC 141 70 - 199 mg/dL POC Performer [id number] [facility] Blood 12/31/2024 2:19 AM CDT 12/31/2024 2:19 AM CDT us Angel [place] MD LAB POCT ORDERABLES - DEVICE Final Result Performing Organization Address [facility] [address]/[facility] Co de Phone Number ARON BHAT [address] [address] [place] [place] [address] * Transfuse plasma Standard plasma (12/31/2024 1:27 AM CDT) Blood Angel [place] MD BLOOD TRANSFUSION ORDERABLES Final Result Performing Organization Address [facility] [address]/[facility] Co de Phone Number ARON BHAT [address] [address] [facility] [employer] [place], [place] [id number] * aPTT (12/31/2024 1:16 AM CDT) aPTT 34 28 - 38 sec Comment: Interpretive Data Heparin therapeutic range: 66.0 - 100.0 seconds. Range based on correlation with therapeutic heparin activity range of 0.3 - 0.7 Units/mL. Current interpretive data was last revised on 2023. Blood 12/31/2024 1:16 AM CDT 12/31/2024 1:29 AM CDT Angel [place] MD LAB BLOOD ORDERABLES Final R esult Performing Organization Address City/[facility] [address]/[facility] Co de Phone Number ARON BHAT [address] [address] Department [employer] [place] [address] * (ABNORMAL) Protime-INR (12/31/2024 1:16 AM CDT) PT 13.2(H) 9.7 - 13.0 sec INR 1.22(H) 0.90 - 1.20 ARON BHAT Comment: Interpretive data Oral anticoagulant therapeutic ranges: Venous thromboembolism prophylaxis or treatment: 2.0-3.0 CARDIOLOGY Standard range: 2.0-3.0 High-intensity range: 2.5-3.5 Refer to indication-specific guidelines for appropriate target ranges for prosthetic heart valve replacement. Current interpretive data was last revised on 2019. Blood 12/31/2024 1:16 AM CDT 12/31/2024 1:29 AM CDT Angel [place] MD LAB BLOOD ORDERABLES Final R esult Performing Organization Address City/[facility] [address]/[facility] Co de Phone Number ARON BHAT [address] [address] [place] [address] * Fibrinogen (12/31/2024 1:16 AM CDT) Fibrinogen 273 170 - 400 mg/dL Blood 12/31/2024 1:16 AM CDT 12/31/2024 1:29 AM CDT Angel [place] MD LAB BLOOD ORDERABLES Final R esult Performing Organization Address City/[facility] [address]/[facility] Co de Phone Number ARON BHAT [address] [address] [place] [address] * POCT glucose (12/31/2024 1:15 AM CDT) Glucose, POC 106 70 - 199 mg/dL POC Performer [id number] [facility] Blood 12/31/2024 1:15 AM CDT 12/31/2024 1:15 AM CDT Angel [place] MD LAB POCT ORDERABLES - DEVICE Final Result ARON HOME [address] [address] [facility] [place] [place] [address] * Prepare RBC (12/31/2024 1:13 AM CDT) Product code [id number] [facility] Unit Number [id number] [facility] Product Blood Type BNEG [facility] Dispense Status PRESUMED TRANSFUSED [facility] Product code [id number] [facility] Unit Number [id number] [facility] Product Blood Type BNEG [facility] CH Dispense Status RETURNED [facility] CH Product code [id number] Unit Number [id number] [facility] CH Product Blood Type BNEG [facility] CH Dispense Status RETURNED [facility] CH Product code [id number] [facility] CH Unit Number [id number] [facility] CH Product Blood Type BNEG [facility]ER CH Dispense Status PRESUMED TRANSFUSED [facility]ER CH Product code [id number] [facility] CH Unit Number [id number] [facility] CH Product Blood Type BNEG [facility]ER CH Dispense Status RETURNED [facility] Blood 12/31/2024 1:13 AM CDT 12/31/2024 1:14 AM CDT Angel [place] MD BLOOD BANK PRODUCT ORDERABLE S Final Result ARON BHAT [address] [address] Department [place] [employer] [place] [address] * Transfuse platelets (12/31/2024 12:07 AM CDT) Blood Angel [place] MD BLOOD TRANSFUSION ORDERABLES Final Result Performing Organization Address [facility] [address]/[facility] de Phone Number ARON BHAT [address] [address] [facility] [employer] [place], [place] [id number] * POCT glucose (12/30/2024 11:59 PM CDT) Glucose, POC 159 70 - 199 mg/dL POC Performer [id number] [facility] Blood 12/30/2024 11:5 9 PM CDT 12/30/2024 11:59 PM CDT Angel [place] MD LAB POCT ORDERABLES - DEVICE Final Result Performing Organization Address [facility] de Phone Number ARON BHAT [address] [address] [facility] [place] [place] [address] * Potassium, whole blood (12/30/2024 11:54 PM CDT) Potassium, bld 3.3 3.3 - 4.9 mmol/L Comment: Interpretive Data This method is not able to assess for hemolysis, which may falsely increase potassium concentrations. If further testing is needed to evaluate this result, consider in-laboratory plasma potassium. Current Interpretive Data was last revised on 2022. Blood 12/30/2024 11:5 4 PM CDT 12/31/2024 12:08 AM CDT Angel [place] MD LAB BLOOD ORDERABLES Final R esult Performing Organization Address [facility] [address]/[facility] de Phone Number ARON BHAT [address] [address] [employer] [place], [place] [phone] * (ABNORMAL) CBC without differential (12/30/2024 11:54 PM CDT) WBC 6.74 3.80 - 9.90 K/cumm Hgb 8.4(L) 13.0 - 17.5 g/dL [facility] Hct 25.0(L) 38.9 - 50.3 % [facility] CH Plt 118(L) 150 - 400 K/cumm [facility] CH MPV 10.1 9.1 - 12.3 fL [facility] CH RBC 2.82(L) 4.30 - 5.80 M/cumm [facility] CH MCV 88.7 81.3 - 96.4 fL [facility] CH MCH 29.8 27.1 - 33.3 pg [facility] CH MCHC 33.6 32.3 - 35.7 g/dL [facility] CH RDW CV 13.8 11.1 - 14.9 % [facility] CH RDW SD 44.5 35.7 - 48.1 fL [facility] NRBC abs 0.00 0.00 - 0.01 K/cumm [facility] Blood 12/30/2024 11:5 4 PM CDT 12/31/2024 12:06 AM CDT us Angel [place] MD LAB BLOOD ORDERABLES Final R esult Performing Organization Address City/[facility] [address]/[facility] Co de Phone Number [facility] [address] Department [place] [address] * (ABNORMAL) Blood gas, arterial (12/30/2024 11:54 PM CDT) pH, Art 7.41 7.35 - 7.45 PCO2, Arterial 42 35 - 45 mmHg [facility] CH PO2, Arterial 82(L) 83 - 108 mmHg [facility] HCO3 Art (Calculated) 26 20 - 30 mmol/L [facility] CH BE, art 2 mmol/L [facility] Comment: Interpretive Data No Reference Range Established Current Interpretive Data was last revised on 2017 O2 Sat Art (Measured) 97(H) 90 - 95 % [facility] Blood 12/30/2024 11:5 4 PM CDT 12/31/2024 12:06 AM CDT us Angel [place] MD LAB BLOOD ORDERABLES Final R esult Performing Organization Address City/[facility] [address]/[facility] Co de Phone Number ARON BHAT [address] [address] [facility] [employer] [place] [address] * Transfuse plasma Standard plasma (12/30/2024 11:02 PM CDT) Blood us Angel [place] MD BLOOD TRANSFUSION ORDERABLES Edited Result - Final Performing Organization Address [facility] [address]/[facility] Co de Phone Number ARON BHAT [address] [address] [place] [place] [address] * POCT glucose (12/30/2024 10:57 PM CDT) Glucose, POC 174 70 - 199 mg/dL POC Performer [id number] ARON Blood 12/30/2024 10:5 7 PM CDT 12/30/2024 10:57 PM CDT us Angel [place] MD LAB POCT ORDERABLES - DEVICE Final Result Performing Organization Address [facility] [address]/[facility] Co de Phone Number ARON BHAT [address] [address] [place] [place] [address] * Transfuse platelets (12/30/2024 10:16 PM CDT) Blood us Angel [place] MD BLOOD TRANSFUSION ORDERABLES Final Result Performing Organization Address [facility] [address]/[facility] Co de Phone Number ARON BHAT [address] [place] [address] * POCT glucose (12/30/2024 10:01 PM CDT) Glucose, POC 174 70 - 199 mg/dL POC Performer [id number] ARON Blood 12/30/2024 10:0 1 PM CDT 12/30/2024 10:01 PM CDT us Angel [place] MD LAB POCT ORDERABLES - DEVICE Final Result Performing Organization Address City/[facility] [address]/ZIP Co de Phone Number ARON BHAT [address] [address] [place] [place] [address] * POCT glucose (12/30/2024 8:58 PM CDT) Glucose, POC 185 70 - 199 mg/dL POC Performer [id number] ARON Blood 12/30/2024 8:58 PM CDT 12/30/2024 8:58 PM CDT Angel [place] MD LAB POCT ORDERABLES - DEVICE Final Result Performing Organization Address [facility] [address]/[facility] Co de Phone Number ARON BHAT [address] [address] [place] [employer] [place] [address] * Calcium, ionized, whole blood (12/30/2024 8:51 PM CDT) Ca, ionized, bld 4.99 4.50 - 5.10 mg/dL Blood 12/30/2024 8:51 PM CDT 12/30/2024 9:07 PM CDT Angel [place] MD LAB BLOOD ORDERABLES Final R esult Performing Organization Address [facility] [address]/[facility] Co de Phone Number ARON BHAT [address] [address] [place] [employer] [place] [address] * eGFR (12/30/2024 8:51 PM CDT) eGFR 89 >=60 mL/min/1. 73 m2 Comment: Interpretive Data Reference Interval Normal >/= 90 mL/min/1.73m2 Mildly decreased* 60 - 89 mL/min/1.73m2 Mildly to moderately decreased 45 - 59 mL/min/1.73m2 Moderately to severely decreased 30 - 44 mL/min/1.73m2 Severely decreased 15 - 29 mL/min/1.73m2 Kidney Failure < 15 mL/min/1.73m2 *Relative to young adult level Estimated glomerular filtration rate is determined by the 2020 CKD-EPI equation recommended by the National Kidney Foundation (A Unifying Approach to GFR Estimation: Recommendations of the NKF-ASK Task Force on Reassessing the Inclusion of Race in Diagnosing Kidney Disease, JASN 202). The CKD-EPI equation should not be used for patients with unstable renal function and has not been validated in children and those over 70. Current interpretive data was last reviewed 2021. Blood 12/30/2024 8:51 PM CDT 12/30/2024 9:03 PM CDT Angel [place] MD LAB BLOOD ORDERABLES Final R esult Performing Organization Address [facility] [address] [facility] Co de Phone Number ARON [address] [address] [place] [address] * aPTT (12/30/2024 8:51 PM CDT) aPTT 32 28 - 38 sec Comment: Interpretive Data Heparin therapeutic range: 66.0 - 100.0 seconds. Range based on correlation with therapeutic heparin activity range of 0.3 - 0.7 Units/mL. Current interpretive data was last revised on 2023. Blood 12/30/2024 8:51 PM CDT 12/30/2024 9:04 PM CDT Angel [place] MD LAB BLOOD ORDERABLES Final R esult Performing Organization Address [facility] [address] [facility] Co de Phone Number LETIBERTO [address] [address] [employer] [place], [place] [id number] * Fibrinogen (12/30/2024 8:51 PM CDT) Fibrinogen 234 170 - 400 mg/dL Blood 12/30/2024 8:51 PM CDT 12/30/2024 9:04 PM CDT Angel [place] MD LAB BLOOD ORDERABLES Final R esult Performing Organization Address [facility] [address]/[facility] Co de Phone Number ARON [address] [address] Department [employer] [place] [address] * (ABNORMAL) CBC without differential (12/30/2024 8:51 PM CDT) WBC 6.61 3.80 - 9.90 K/cumm Hgb 9.2(L) 13.0 - 17.5 g/dL [facility] Hct 27.4(L) 38.9 - 50.3 % CERNER CH Plt 92(L) 150 - 400 K/cumm C[facility]ER CH MPV 9.7 9.1 - 12.3 fL [facility] CH RBC 3.04(L) 4.30 - 5.80 M/cumm C[facility]ER CH MCV 90.1 81.3 - 96.4 fL C[facility]ER CH MCH 30.3 27.1 - 33.3 pg CERNER CH MCHC 33.6 32.3 - 35.7 g/dL C[facility]ER CH RDW CV 13.8 11.1 - 14.9 % CERNER CH RDW SD 44.6 35.7 - 48.1 fL [facility] CH NRBC abs 0.00 0.00 - 0.01 K/cumm [facility] CH Blood 12/30/2024 8:51 PM CDT 12/30/2024 9:04 PM CDT us Angel [place] MD LAB BLOOD ORDERABLES Final R esult ARON [address] [address] [place] [address] * (ABNORMAL) Blood gas, arterial (12/30/2024 8:51 PM CDT) pH, Art 7.35 7.35 - 7.45 PCO2, Arterial 39 35 - 45 mmHg [facility] CH PO2, Arterial 93 83 - 108 mmHg [facility] CH HCO3 Art (Calculated) 21 20 - 30 mmol/L [facility] CH BE, art -4 mmol/L [facility] CH Comment: Interpretive Data No Reference Range Established Current Interpretive Data was last revised on 2017 O2 Sat Art (Measured) 98(H) 90 - 95 % [facility] CH Blood 12/30/2024 8:51 PM CDT 12/30/2024 9:03 PM CDT us Angel [place] MD LAB BLOOD ORDERABLES Final R esult Performing Organization Address City/[facility] [address]/ZIP Co de Phone Number ARON BHAT [address] [address] Department [employer] [place] [address] * (ABNORMAL) Basic metabolic panel (12/30/2024 8:51 PM CDT) Sodium 148(H) 135 - 145 mmol/L Potassium, pl 3.8 3.3 - 4.9 mmol/L [facility] Chloride 112(H) 97 - 110 mmol/L [facility] CO2 20(L) 22 - 32 mmol/L [facility] Anion gap 16(H) 2 - 15 mmol/L [facility] BUN 19 6 - 25 mg/dL [facility] Creatinine 0.85 0.80 - 1.30 mg/dL [facility] Comment:Icteric sample, test results may be affected. Glucose 183 70 - 199 mg/dL [facility] Comment: Interpretive Data Fasting glucose >/= 126 mg/dl is diagnostic for diabetes. Fasting is defined as no caloric intake for at least 8 hours. Fasting glucose between 100 mg/dl to 125 mg/dl is diagnostic of prediabetes. In a patient with classic symptoms of hyperglycemia or hyperglycemic crisis, a random glucose >/= 200 mg/dl is diagnostic for diabetes. In the absence of unequivocal hyperglycemia, results should be confirmed by repeat testing. The classification and Diagnosis of Diabetes Diabetes Care 2021; 46: S19-S40. Current interpretive data was last revised 2022. Calcium 8.9 8.5 - 10.3 mg/dL [facility] Blood 12/30/2024 8:51 PM CDT 12/30/2024 9:03 PM CDT us Angel [place] MD LAB BLOOD ORDERABLES Final R esult Performing Organization Address [facility]/ZIP Co de Phone Number ARON BHAT [address] Department [place] [employer] [place] [address] * Transfuse RBC (12/30/2024 8:31 PM CDT) Blood us Angel [place] MD BLOOD TRANSFUSION ORDERABLES Final Result Performing Organization Address [facility] Co de Phone Number LETIBERTO BHAT [address] [address] [facility] [employer] [place] [address] * Transfuse RBC (12/30/2024 7:59 PM CDT) Blood Angel [place] MD BLOOD TRANSFUSION ORDERABLES Final Result Performing Organization Address [facility] [address] [facility] Co de Phone Number ARON [address] [address] [facility] [employer] [place] [address] * Transfuse platelets (12/30/2024 7:58 PM CDT) Blood Angel [place] MD BLOOD TRANSFUSION ORDERABLES Final Result Performing Organization Address [facility] [address] [facility] Co de Phone Number ARON [address] [address] [place] [address] * Transfuse platelets (12/30/2024 7:57 PM CDT) Blood Angel [place] MD BLOOD TRANSFUSION ORDERABLES Final Result Performing Organization Address [facility] [address] [facility] Co de Phone Number ARON [address] [place] [address] * POCT glucose (12/30/2024 7:52 PM CDT) Glucose, POC 161 70 - 199 mg/dL POC Performer [id number] ARON Blood 12/30/2024 7:52 PM CDT 12/30/2024 7:52 PM CDT us Angel [place] MD LAB POCT ORDERABLES - DEVICE Final Result Performing Organization Address [facility] [address] [facility] Co de Phone Number ARON [address] [address] Department [facility] [place] [address] * Prepare RBC: 4 Units (12/30/2024 7:23 PM CDT) Product code [id number] Unit Number [id number] 7-C [facility] Product Blood Type BNEG [facility]ER CH Dispense Status RETURNED [facility]ERNER CH Product code [id number] [facility]ER CH Unit Number [id number] 9-8 [facility]ER CH Product Blood Type BNEG [facility] CH Dispense Status RETURNED [facility] CH Blood 12/30/2024 7:23 PM CDT Narrative C[facility]ER CH - 12/31/2024 4:15 AM CDT Are special requirements needed? (All products are leukoreduced and CMV- safe)- >No Date required:-20241230 LRRBC # of [id number] Reasons:-Hemorrhagic shock/Life-threatening bleeding} Angel [place] MD BLOOD BANK PRODUCT ORDERABLE S Final Result ARON [address] [address] [facility] [place] [address] * Critical Care (12/30/2024 7:19 PM CDT) Narrative Iain Moon MD - 12/30/2024 7:19 PM CDT Iain Moon MD 12/31/2024 6:23 AM Critical Care Performed by: Olvin Tyler NP Authorized by: Olvin Tyler NP CRITICAL CARE: Team: ELISA Shift: PM Level of Billing: Critical Care My time spent with this patient was 120 minutes: Critical Provider Statement: I have seen and examined the patient on this day of service. I have reviewed and confirmed the history, physical exam, laboratory and radiologic data as documented in the signed ICU note. I have reviewed and discussed my treatment plan with the ICU team and other medical/client support consultant staff, making frequent assessments and decisions regarding this patient's complex medical care. Critical Care time was exclusive of time spent performing separately billed procedures, treating other patients, and teaching. This time was in addition to and separate from critical care provided by other practitioners in my group on this day of service. Critical Care was necessary to treat or prevent imminent or life-threatening deterioration of the following conditions: I spent time reviewing and interpreting data from bedside monitors, laboratory results, and imaging, I spent time discussing the management of this critically ill patient with consultants and the medical staff and I spent time documenting in the medical record Olvin Tyler NP IN CLINIC/BEDSIDE ORDER HARVINDER Final Result * Prepare platelets: 3 Units (12/30/2024 7:04 PM CDT) Product code [id number] [facility]ER CH Unit Number [id number] [facility]ER CH Product Blood Type ANEG CERNER CH Dispense Status PRESUMED TRANSFUSED [facility]ER CH Product code [id number] Unit Number [id number] [facility] CH Product Blood Type BPOS [facility]ER CH Dispense Status PRESUMED TRANSFUSED [facility]ER CH Product code [id number] CERNER CH Unit Number [id number] [facility]ER CH Product Blood Type OPOS CERNER CH Dispense Status PRESUMED TRANSFUSED [facility]ER CH Blood Venous blood specimen / Unknown 12/30/2024 7:04 PM CDT [address] - 01/03/2025 10:16 PM CDT Are special requirements needed? (all products are leukoreduced)->No Date required:-20241230 PLT # of Units:-3-Units Reasons:-Major active bleeding} Angel [place] MD BLOOD BANK PRODUCT ORDERABLE S Final Result ARON [address] [place] [address] * POCT glucose (12/30/2024 6:42 PM CDT) Glucose, POC 152 70 - 199 mg/dL POC Performer [id number] CERNER CH Blood 12/30/2024 6:42 PM CDT 12/30/2024 6:42 PM CDT Angel [place] MD LAB POCT ORDERABLES - DEVICE Final Result Performing Organization Address City/[facility] [address] [facility]/ZIP Co de Phone Number ARON BHAT [address] [place] [address] * Prepare platelets (12/30/2024 6:29 PM CDT) Product code [id number] CERNER CH Unit Number [id number] [facility]ER CH Product Blood Type APOS [facility] CH Dispense Status PRESUMED TRANSFUSED [facility]ER CH Product code [id number] Unit Number [id number] [facility]ER CH Product Blood Type APOS [facility] CH Dispense Status PRESUMED TRANSFUSED [facility] CH Blood 12/30/2024 6:29 PM CDT 12/30/2024 6:38 PM CDT Conner Kurtz MD BLOOD BANK PRODUCT OR DERABLES Final Result Performing Organization Address [facility] Co de Phone Number ARON BHAT [address] Department [place] [place] [address] * Prepare plasma: 3 Units Standard plasma (12/30/2024 6:28 PM CDT) Product code [id number] Unit Number [id number] [facility]ER [facility] Product Blood Type BPOS [facility]ER CH Dispense Status PRESUMED TRANSFUSED [facility]ER CH Product code [id number] CERNER CH Unit Number [id number]- [id number] [facility] CH Product Blood Type BPOS [facility] CH Dispense Status PRESUMED TRANSFUSED [facility]ER CH Product code [id number] CERNER CH Unit Number [id number]- N [facility] CH Product Blood Type BPOS [facility] CH Dispense Status PRESUMED TRANSFUSED [facility] Blood Venous blood specimen / Unknown 12/30/2024 6:28 PM CDT Narrative [facility]ER CH - 01/03/2025 10:15 PM CDT Is this plasma order intended for a COVID-19 patient as convalescent plasma?->Standard plasma Special Requirements Needed?->No Date required:-20241230 FFP # of Units:-3-Units Reasons:-Active major bleeding with coagulopathy} Angel [place] MD BLOOD BANK PRODUCT ORDERABLE S Final Result Performing Organization Address [facility] Co de Phone Number ARON BHAT [address] [place] [address] * Lactate (12/30/2024 6:25 PM CDT) Lactate 1.2 0.7 - 2.0 mmol/L Blood 12/30/2024 6:25 PM CDT 12/30/2024 6:48 PM CDT Angel [place] MD LAB BLOOD ORDERABLES Final R esult Performing Organization Address [facility] de Phone Number LETIBERTO BHAT [address] [address] [facility] [employer] [place], [place] [address] * (ABNORMAL) Protime-INR (12/30/2024 6:25 PM CDT) PT 17.1(H) 9.7 - 13.0 sec INR 1.57(H) 0.90 - 1.20 ARON Comment: Interpretive data Oral anticoagulant therapeutic ranges: Venous thromboembolism prophylaxis or treatment: 2.0-3.0 CARDIOLOGY Standard range: 2.0-3.0 High-intensity range: 2.5-3.5 Refer to indication-specific guidelines for appropriate target ranges for prosthetic heart valve replacement. Current interpretive data was last revised on 2019. Blood 12/30/2024 6:25 PM CDT 12/30/2024 6:48 PM CDT Maureen Martinez NP LAB BLOOD ORDERABLES Fin al Result Performing Organization Address [facility] Co de Phone Number ARON BHAT [address] [address] [facility] [place] [employer] [place] [address] * Fibrinogen (12/30/2024 6:25 PM CDT) Fibrinogen 201 170 - 400 mg/dL Blood 12/30/2024 6:25 PM CDT 12/30/2024 6:48 PM CDT us Maureen Martinez NP LAB BLOOD ORDERABLES Fin al Result Performing Organization Address City/[facility] [address]/ZIP Co de Phone Number ARON [address] Department [place] [employer] [place] [address] * (ABNORMAL) CBC without differential (12/30/2024 6:25 PM CDT) WBC 5.26 3.80 - 9.90 K/cumm Hgb 7.3(L) 13.0 - 17.5 g/dL CERNER CH Hct 21.1(L) 38.9 - 50.3 % CERNER CH Plt 64(L) 150 - 400 K/cumm CERNER CH MPV 10.7 9.1 - 12.3 fL CERNER CH RBC 2.29(L) 4.30 - 5.80 M/cumm CERNER CH MCV 92.1 81.3 - 96.4 fL CERNER CH MCH 31.9 27.1 - 33.3 pg CERNER CH MCHC 34.6 32.3 - 35.7 g/dL CERNER CH RDW CV 13.6 11.1 - 14.9 % CERNER CH RDW SD 45.3 35.7 - 48.1 fL CERNER CH NRBC abs 0.00 0.00 - 0.01 K/cumm [facility]ER CH Blood 12/30/2024 6:25 PM CDT 12/30/2024 6:48 PM CDT us Angel [place] MD LAB BLOOD ORDERABLES Final R esult ARON BHAT [address] [place] [place] [address] * Type and screen (12/30/2024 6:25 PM CDT) Colton, indirect Negative ABO Rh B Negative CERNER CH Blood 12/30/2024 6:25 PM CDT 12/30/2024 7:12 PM CDT Narrative ARON - 12/30/2024 7:57 PM CDT Has the patient had Daratumumab or Isatuximab in the past 6 months?->Unknown Angel [place] MD LAB BLOOD BANK TEST ORDERABL ES Final Result Performing Organization Address [facility] [address] [facility] Co de Phone Number LETIBERTO BHAT [address] [address] Department [place] [employer] [place] [address] * (ABNORMAL) Blood gas, arterial (12/30/2024 6:25 PM CDT) pH, Art 7.34(L) 7.35 - 7.45 PCO2, Arterial 40 35 - 45 mmHg CERNER CH PO2, Arterial 185(H) 83 - 108 mmHg CERNER CH HCO3 Art (Calculated) 21 20 - 30 mmol/L CERNER CH BE, art -4 mmol/L CERNER CH Comment: Interpretive Data No Reference Range Established Current Interpretive Data was last revised on 2017 O2 Sat Art (Measured) 99(H) 90 - 95 % CERNER Blood 12/30/2024 6:25 PM CDT 12/30/2024 6:48 PM CDT Angel [place] MD LAB BLOOD ORDERABLES Final R esult Performing Organization Address [facility] [address] [facility] de Phone Number LETIBERTO BHAT [address] [address] [place] [place] [address] * Transfuse cryoprecipitate (pooled units) (12/30/2024 6:22 PM CDT) Blood Angel [place] MD BLOOD TRANSFUSION ORDERABLES Final Result Performing Organization Address [facility] [address] [facility]/ZIP Co de Phone Number LETIBERTO BHAT [address] [address] [place] [employer] [place] [address] * Prepare RBC: 1 Units (12/30/2024 6:20 PM CDT) Product code [id number] Unit Number [id number] 7-K [facility] Product Blood Type BNEG [facility] Dispense Status RETURNED [facility] Blood 12/30/2024 6:20 PM CDT Narrative [facility] - 12/31/2024 1:13 AM CDT Are special requirements needed? (All products are leukoreduced and CMV- safe)- >No Date required:-20241230 LRRBC # of [id number] Reasons:-Hemorrhagic shock/Life-threatening bleeding} Angel [place] MD BLOOD BANK PRODUCT ORDERABLE S Final Result Performing Organization Address [facility] [address] [facility] Co de Phone Number ARON [address] [address] Department of [employer] [place], [place] [id number] * Transfuse cryoprecipitate (pooled units) (12/30/2024 5:46 PM CDT) Blood Angel [place] MD BLOOD TRANSFUSION ORDERABLES Final Result Performing Organization Address [facility] [address] [facility] Co de Phone Number ARON [address] [address] Department [place] [employer] [place] [address] * POCT glucose (12/30/2024 5:40 PM CDT) [facility] Signature Glucose, POC 149 70 - 199 mg/dL POC Performer [id number] [facility] Blood 12/30/2024 5:40 PM CDT 12/30/2024 5:40 PM CDT Angel [place] MD LAB POCT ORDERABLES - DEVICE Final Result Performing Organization Address City/[facility] [address]/ZIP Co de Phone Number ARON [address] [address] [place] [place] [address] * Transfuse platelets (12/30/2024 5:30 PM CDT) Blood Angel [place] MD BLOOD TRANSFUSION ORDERABLES Final Result Performing Organization Address City/[facility] [address]/[facility] Co de Phone Number [facility] [address] [place] [address] * Prepare RBC: 1 Units (12/30/2024 5:25 PM CDT) Product code [id number] Unit Number [id number] 5-O [facility] Product Blood Type BNEG [facility] Dispense Status RETURNED [facility] Blood 12/30/2024 5:25 PM CDT Narrative [facility] - 12/31/2024 4:15 AM CDT Are special requirements needed? (All products are leukoreduced and CMV- safe)- >No Date required:-20241230 LRRBC # of [id number] Reasons:-Hemorrhagic shock/Life-threatening bleeding} Angel [place] MD BLOOD BANK PRODUCT ORDERABLE S Final Result Performing Organization Address [facility] [address] [facility] Co de Phone Number [facility] [address] [place] [address] * Transfuse platelets (12/30/2024 5:16 PM CDT) Blood Angel [place] MD BLOOD TRANSFUSION ORDERABLES Final Result Performing Organization Address [facility] [address] [facility] Co de Phone Number [facility] [address] [place] [address] * Critical Care (12/30/2024 4:59 PM CDT) Narrative Gayathri Braga MD - 12/30/2024 4:59 PM CDT Gayathri Braga MD 01/03/2025 6:23 PM Critical Care Performed by: Maureen Martinez NP Authorized by: Maureen Martinez NP CRITICAL CARE: Team: ELISA Shift: AM Level of Billing: Critical Care My time spent with this patient was 130 minutes: Critical Provider Statement: I have seen and examined the patient on this day of service. I have reviewed and confirmed the history, physical exam, laboratory and radiologic data as documented in the signed ICU note. I have reviewed and discussed my treatment plan with the ICU team and other medical/client support consultant staff, making frequent assessments and decisions regarding this patient's complex medical care. Critical Care time was exclusive of time spent performing separately billed procedures, treating other patients, and teaching. This time was in addition to and separate from critical care provided by other practitioners in my group on this day of service. Critical Care was necessary to treat or prevent imminent or life-threatening deterioration of the following conditions: I spent time reviewing and interpreting data from bedside monitors, laboratory results, and imaging, I spent time discussing the management of this critically ill patient with consultants and the medical staff and I spent time documenting in the medical record us Maureen Martinez LABOR CUSTODIAN IN CLINIC/BEDSIDE ORDERA BLES Final Result * XR Chest 1 View - Portable (12/30/2024 4:48 PM CDT) Anatomical Region Laterality Modality Body, Chest N/A Computed Radiogr aphy 12/30/2024 4:59 PM CDT Impressions 12/30/2024 4:59 PM CDT Pulmonary arterial catheter is appropriately position. Mediastinal drain and bilateral thoracostomy tubes are appropriately positioned. Endotracheal tube terminates 3.6 cm from the minh. No pneumothorax. Small bilateral pleural effusions, left greater than right. There is pulmonary vascular congestion with prominence of interstitial markings in the perihilar region bilaterally suggestive of interstitial pulmonary edema. Electronically signed by: Kem Bartholomew II, D.O. Narrative 12/30/2024 4:59 PM CDT EXAMINATION: XR CHEST 1 VIEW DATE: 12/30/2024 4:40 PM INDICATION: Cardiac surgery. COMPARISON: None. Procedure Note Kem Bartholomew II, DO - 12/30/2024 EXAMINATION: XR CHEST 1 VIEW DATE: 12/30/2024 4:40 PM INDICATION: Cardiac surgery. COMPARISON: None. IMPRESSION: Pulmonary arterial catheter is appropriately position. Mediastinal drain and bilateral thoracostomy tubes are appropriately positioned. Endotracheal tube terminates 3.6 cm from the minh. No pneumothorax. Small bilateral pleural effusions, left greater than right. There is pulmonary vascular congestion with prominence of interstitial markings in the perihilar region bilaterally suggestive of interstitial pulmonary edema. Electronically signed by: Kem Bartholomew II, D.O. Angel [place] MD IMG XR PROCEDURES Final Resu lt * Prepare cryoprecipitate (pooled units): 2 Units (12/30/2024 4:47 PM CDT) Product code [id number] Unit Number [id number] [facility] Product Blood Type OPOS [facility] Dispense Status PRESUMED TRANSFUSED [facility]ER CH Product code [id number] [facility]ER CH Unit Number [id number] [facility] Product Blood Type APOS [facility] CH Dispense Status PRESUMED TRANSFUSED [facility] CH Blood Venous blood specimen / Unknown 12/30/2024 4:47 PM CDT Narrative C[facility]ER CH - 12/30/2024 10:15 PM CDT Cryo # of [id number] Reasons:-Dysfibrinogenemia WITH bleeding} Angel [place] MD BLOOD BANK PRODUCT ORDERABLE S Final Result CERNER [address] Department [place] [address] * Prepare platelets: 2 Units (12/30/2024 4:38 PM CDT) Product code [id number] Unit Number [id number] [facility]ER [facility] Product Blood Type APOS [facility] CH Dispense Status PRESUMED TRANSFUSED [facility]ERNER CH Product code [id number] [facility]ER CH Unit Number [id number]- [id number] [facility]ER CH Product Blood Type APOS [facility] CH Dispense Status PRESUMED TRANSFUSED [facility] CH Blood Venous blood specimen / Unknown 12/30/2024 4:38 PM CDT Narrative C[facility]ER CH - 12/30/2024 10:15 PM CDT Are special requirements needed? (all products are leukoreduced)->No Date required:-20241230 PLT # of Units:-2-Units Reasons:-Major active bleeding} Angel [place] MD BLOOD BANK PRODUCT ORDERABLE S Final Result Performing Organization Address [facility] [address] [facility]/ZIP Co de Phone Number ARON BHAT [address] [address] Department [place] [employer] [place] [address] * (ABNORMAL) Calcium, ionized, whole blood (12/30/2024 4:37 PM CDT) Ca, ionized, bld 4.41(L) 4.50 - 5.10 mg/dL Blood 12/30/2024 4:37 PM CDT 12/30/2024 4:42 PM CDT us Angel [place] MD LAB BLOOD ORDERABLES Final R esult Performing Organization Address [facility] [address]/[facility] Co de Phone Number ARON BHAT [address] [employer] [place], [place] [address] * eGFR (12/30/2024 4:37 PM CDT) eGFR >90 >=60 mL/min/1. 73 m2 Comment: Interpretive Data Reference Interval Normal >/= 90 mL/min/1.73m2 Mildly decreased* 60 - 89 mL/min/1.73m2 Mildly to moderately decreased 45 - 59 mL/min/1.73m2 Moderately to severely decreased 30 - 44 mL/min/1.73m2 Severely decreased 15 - 29 mL/min/1.73m2 Kidney Failure < 15 mL/min/1.73m2 *Relative to young adult level Estimated glomerular filtration rate is determined by the 2020 CKD-EPI equation recommended by the National Kidney Foundation (A Unifying Approach to GFR Estimation: Recommendations of the NKF-ASK Task Force on Reassessing the Inclusion of Race in Diagnosing Kidney Disease, JASN 2020). The CKD-EPI equation should not be used for patients with unstable renal function and has not been validated in children and those over 70. Current interpretive data was last reviewed 2021. Blood 12/30/2024 4:37 PM CDT 12/30/2024 4:43 PM CDT us Angel [place] MD LAB BLOOD ORDERABLES Final R esult Performing Organization Address [facility] Co de Phone Number ARON BHAT [address] [address] [facility] [employer] [place], [place] [address] * aPTT (12/30/2024 4:37 PM CDT) aPTT 33 28 - 38 sec Comment: Interpretive Data Heparin therapeutic range: 66.0 - 100.0 seconds. Range based on correlation with therapeutic heparin activity range of 0.3 - 0.7 Units/mL. Current interpretive data was last revised on 2023. Blood 12/30/2024 4:37 PM CDT 12/30/2024 4:43 PM CDT Angel [place] MD LAB BLOOD ORDERABLES Final R esult Performing Organization Address [facility] de Phone Number ARON BHAT [address] [address] [facility] [place] [employer] [place] [address] * (ABNORMAL) Protime-INR (12/30/2024 4:37 PM CDT) PT 19.2(H) 9.7 - 13.0 sec INR 1.76(H) 0.90 - 1.20 ARON Comment: Interpretive data Oral anticoagulant therapeutic ranges: Venous thromboembolism prophylaxis or treatment: 2.0-3.0 CARDIOLOGY Standard range: 2.0-3.0 High-intensity range: 2.5-3.5 Refer to indication-specific guidelines for appropriate target ranges for prosthetic heart valve replacement. Current interpretive data was last revised on 2019. Blood 12/30/2024 4:37 PM CDT 12/30/2024 4:43 PM CDT Angel [place] MD LAB BLOOD ORDERABLES Final R esult Performing Organization Address [facility] Co de Phone Number ARON BHAT [address] [address] [facility] [place] [employer] [place] [address] * (ABNORMAL) CBC without differential (12/30/2024 4:37 PM CDT) WBC 4.30 3.80 - 9.90 K/cumm Hgb 9.3(L) 13.0 - 17.5 g/dL [facility] Hct 27.4(L) 38.9 - 50.3 % [facility] Plt 55(L) 150 - 400 K/cumm [facility] MPV 10.3 9.1 - 12.3 fL [facility] RBC 3.07(L) 4.30 - 5.80 M/cumm [facility] MCV 89.3 81.3 - 96.[address] [facility] MCH 30.3 27.1 - 33.[address] [facility] MCHC 33.9 32.3 - 35.7 g/dL [facility] RDW CV 12.8 11.1 - 14.9 % [facility] RDW SD 41.3 35.7 - 48.1 fL [facility] NRBC abs 0.00 0.00 - 0.01 K/cumm [facility] CH Blood 12/30/2024 4:37 PM CDT 12/30/2024 4:43 PM CDT us Angel [place] MD LAB BLOOD ORDERABLES Final R esult Performing Organization Address City/[facility] [address]/[facility] Co de Phone Number ARON [address] [place] [address] * Phosphorus (12/30/2024 4:37 PM CDT) Pathologist [facility] Phosphorus, pl 3.1 2.3 - 4.5 mg/dL Blood 12/30/2024 4:37 PM CDT 12/30/2024 5:36 PM CDT us Maureen Martinez NP LAB BLOOD ORDERABLES Fin al Result Performing Organization Address [facility] Co de Phone Number [facility] [address] Kaylene Valdez [facility] [employer] [place], [place] [id number] * Magnesium (12/30/2024 4:37 PM CDT) Pathologist [facility] Magnesium 2.1 1.4 - 2.5 mg/dL Blood 12/30/2024 4:37 PM CDT 12/30/2024 4:43 PM CDT Angel [place] MD LAB BLOOD ORDERABLES Final R esult Performing Organization Address City/[facility] [address]/[facility] [place] [address] Kaylene Valdez Department [place] [address] * (ABNORMAL) Blood gas, arterial (12/30/2024 4:37 PM CDT) pH, Art 7.34(L) 7.35 - 7.45 PCO2, Arterial 39 35 - 45 mmHg CERNER CH PO2, Arterial 307(H) 83 - 108 mmHg CERNER CH HCO3 Art (Calculated) 21 20 - 30 mmol/L CERNER CH BE, art -4 mmol/L CERNER CH Comment: Interpretive Data No Reference Range Established Current Interpretive Data was last revised on 2017 O2 Sat Art (Measured) 99(H) 90 - 95 % CERNER CH Blood 12/30/2024 4:37 PM CDT 12/30/2024 4:42 PM CDT Angel [place] MD LAB BLOOD ORDERABLES Final R esult Performing Organization Address City/[facility] [address]/[facility] Co de Phone [place] [address] Kaylene Valdez [place] [address] * (ABNORMAL) Basic metabolic panel (12/30/2024 4:37 PM CDT) Sodium 145 135 - 145 mmol/L Potassium, pl 4.0 3.3 - 4.9 mmol/L CERNER CH Chloride 114(H) 97 - 110 mmol/L CERNER CH CO2 19(L) 22 - 32 mmol/L CERNER CH Anion gap 12 2 - 15 mmol/L CERNER CH BUN 20 6 - 25 mg/dL CERNER CH Creatinine 0.77(L) 0.80 - 1.30 mg/dL CERNER CH Glucose 156 70 - 199 mg/dL CERNER CH Comment: Interpretive Data Fasting glucose >/= 126 mg/dl is diagnostic for diabetes. Fasting is defined as no caloric intake for at least 8 hours. Fasting glucose between 100 mg/dl to 125 mg/dl is diagnostic of prediabetes. In a patient with classic symptoms of hyperglycemia or hyperglycemic crisis, a random glucose >/= 200 mg/dl is diagnostic for diabetes. In the absence of unequivocal hyperglycemia, results should be confirmed by repeat testing. The classification and Diagnosis of Diabetes Diabetes Care 2021; 46: S19-S40. Current interpretive data was last revised 2022. Calcium 7.3(L) 8.5 - 10.3 mg/dL CERNER CH Blood 12/30/2024 4:37 PM CDT 12/30/2024 4:43 PM CDT Angel [place] MD LAB BLOOD ORDERABLES Final R esult Performing Organization Address City/[facility] [address]/[facility] Co de Phone Number ARON BHAT [address] Kaylene Valdez Department [employer] [place], [place] [id number] * POCT glucose (12/30/2024 4:26 PM CDT) Glucose, POC 109 70 - 199 mg/dL POC Performer [id number] [facility] Blood 12/30/2024 4:26 PM CDT 12/30/2024 4:26 PM CDT Angel [place] MD LAB POCT ORDERABLES - DEVICE Final Result Performing Organization Address [facility] [address] [facility] Co de Phone Number [facility]ON HOME [address] [address] Department [place] [employer] [place] [address] * XR Chest 1 View (12/30/2024 3:40 PM CDT) Anatomical Region Laterality Modality Body, Chest N/A Computed Radiogr aphy 12/30/2024 3:56 PM CDT Impressions 12/30/2024 3:56 PM CDT Findings as described above. Electronically signed by: Sangeeta Harmon M.D. Narrative 12/30/2024 3:56 PM CDT EXAMINATION: XR CHEST 1 VIEW HISTORY: The patient is a 79-year-old male who has had bypass surgery. TECHNIQUE: AP view of the chest. FINDINGS: There is no definite obvious radiopaque foreign body seen in the thorax from this radiograph. Endotracheal tube tip in good position. Bilateral thoracostomy tubes and mediastinal drain in place. The tip of a right Juniata-Maryanne catheter is in the origin of the right main pulmonary artery. Borderline cardiomegaly with aortic atherosclerosis. No failure. Minimal left lower lobe infiltrate. Procedure Note Sangeeta Harmon MD - 12/30/2024 EXAMINATION: XR CHEST 1 VIEW HISTORY: The patient is a 79-year-old male who has had bypass surgery. TECHNIQUE: AP view of the chest. FINDINGS: There is no definite obvious radiopaque foreign body seen in the thorax from this radiograph. Endotracheal tube tip in good position. Bilateral thoracostomy tubes and mediastinal drain in place. The tip of a right Juniata-Maryanne catheter is in the origin of the right main pulmonary artery. Borderline cardiomegaly with aortic atherosclerosis. No failure. Minimal left lower lobe infiltrate. IMPRESSION: Findings as described above. Electronically signed by: Sangeeta Harmon M.D. Angel [place] MD IMG XR PROCEDURES Final Resu lt * PEDRO (12/30/2024 3:25 PM CDT) Anatomical Region Laterality Modality Other Narrative 12/30/2024 3:25 PM CDT Candelaria Resendez DO 12/30/2024 3:29 PM PEDRO Date/time: Staff: Performed by: Anesthesiologist: Candelaria Resendez DO Preprocedure checklist: patient identified, procedure consent, risks, benefits and alternatives discussed and PEDRO probe inserted into esophagus using lubricating jelly General procedure Information: Reason for procedure/indications: assessment of surgical repair and hemodynamic monitoring Performed: personally Procedure performed at surgeon's request: yes Results discussed with surgeon: yes Images submitted to archive: yes Patient location: OR Intubated: yes Bite blocked placed: yes Probe Insertion: easy Complications: no Probe type: adult Modalities: 2D imaging, 3D imaging, continuous wave Doppler, pulsed wave Doppler and color Doppler Echocardiographic and doppler measurements: Ventricles: Left ventricle: Cavity size: normal Hypertrophy: No Thrombus: No Global function: normal LVEF%: 50-60 Right ventricle: Cavity size: normal Hypertrophy: no Thrombus: No RVEF%: normal Interventricular septum: normal Regional function: 1- Basal anteroseptal: normal 2- Basal anterior: normal 3- Basal anterolateral: normal 4- Basal inferolateral: normal 5- Basal inferior: normal 6- Basal inferoseptal: normal 7- Mid anteroseptal: normal 8- Mid anterior: normal 9- Mid anterolateral: normal 10- Mid inferolateral: normal 11- Mid inferior: normal 12- Mid inferoseptal: normal 13- Apical anterior: normal 14- Apical lateral: normal 15- Apical inferior: normal 16- Apical septal: normal 17- [place]: normal Valves: Aortic Valve: Annulus: normal Leaflet morphology: normal Leaflet motion: normal Stenosis: none Regurgitation: none Mitral valve: Annulus: normal Leaflet morphology anterior: normal Leaflet motion anterior: normal Stenosis: none Regurgitation: trace Tricuspid valve: Annulus: normal Leaflet morphology: normal Leaflet motion: normal Stenosis: none Regurgitation: trace Pulmonic valve: Annulus: normal Stenosis: none Regurgitation: trace Aorta: Ascending aorta: Size: normal Dissection: no Plaque thickness(mm): 0-3 Plaque mobile: no Aortic arch: Size: normal Dissection: no Plaque thickness(mm): 0-3 Plaque mobile: no Descending aorta: Size: normal Dissection: no Plaque thickness(mm): 0-3 Plaque mobile: no Atria: Right atrium: Size: normal Spontaneous echo contrast: No Thrombus: no Mass: No Left atrium: Size: normal (normal) Spontaneous echo contrast: No Thrombus: no Mass: No Left atrial appendage: normal Interatrial septum: normal Diastolic function and other findings: Diastolic function: normal Pericardium: normal Left pleural effusion: none Right pleural effusion: normal Pulmonary venous flow: normal Postprocedure (follow-up) PEDRO exam: LV: unchanged RV: unchanged Interventricular septum: unchanged Aortic valve: unchanged Mitral valve: unchanged Pulmonic valve: unchanged Tricuspid valve: unchanged Atria: unchanged Aorta: unchanged Pericardium: unchanged Left pleural: unchanged Right pleural: unchanged Postprocedure (follow-up) PEDRO exam comments: S/p cabg, DAI occlusion, bleb resection, on dobutamine 3 mcg/kg/min: LV, RV function normal, no new RWMA. Valves as before. No evidence of DAI flow past occluder device. Attestation Statement: By signing this report the attending anesthesiologist certifies that he or she has personally reviewed and interpreted the echocardiogram and has reviewed and or edited and agrees with the written comments contained within the report. [facility] ANESTHESIA ORDERABLES Final Result * Transfuse platelets (12/30/2024 3:16 PM CDT) Blood [facility] BLOOD TRANSFUSION ORDERABLE S Final Result [facility] [address] Kaylene Val[address] Department [place] [address] * (ABNORMAL) POC Blood Gas and Chemistries, Arterial - (12/30/2024 3:11 PM CDT) pH, Art POC 7.38 7.35 - 7.45 pCO2, Art POC 36 35 - 45 mmHg CERNER CH pO2, Art POC 225(H) 83 - 108 mmHg CERNER CH Na, POC 141 135 - 145 mmol/L CERNER CH K POC 3.6 3.3 - 4.9 mmol/L CERNER CH Comment: Interpretive Data This method is not able to assess for hemolysis, which may falsely increase potassium concentrations. If further testing is needed to evaluate this result, consider in-laboratory plasma potassium. Current Interpretive Data was last revised on 2022. Ionized Ca, POC 4.53 4.50 - 5.10 mg/dL CERNER CH Glucose, POC 123 70 - 199 mg/dL CERNER CH Lactate, POC 0.6(L) 0.7 - 2.0 mmol/L CERNER CH O2Hb, Art POC 97.5(H) 90.0 - 95.0 % CERNER CH SO2 (leatha) arterial 100(H) 90 - 95 % CERNER CH Total CO2, Art POC 22 21 - 30 mmol/L CERNER CH BE, art, POC -3 mmol/L CERNER CH Hct, POC 27.0(L) 38.9 - 50.3 % CERNER CH Total Hb, POC 9.1(L) 13.0 - 17.5 g/dL CERNER Blood 12/30/2024 3:11 PM CDT 12/30/2024 3:11 PM CDT Angel [place] MD LAB POCT ORDERABLES - DEVICE Final Result Performing Organization Address [facility]/ZIP Co de Phone Number ARON BHAT [address] [place] [address] * (ABNORMAL) Platelet count (12/30/2024 3:00 PM CDT) Plt 51(L) 150 - 400 K/cumm Blood 12/30/2024 3:00 PM CDT 12/30/2024 3:03 PM CDT Narrative [facility] - 12/30/2024 3:06 PM CDT Please call results to ext. [phone]. Thanks. Angel [place] MD LAB BLOOD ORDERABLES Final R esult Performing Organization Address [facility] [address] [facility] Co de Phone Number ARON BHAT [address] Kaylene [place] [employer] [place] [address] * Prepare platelets: 1 Units (12/30/2024 2:58 PM CDT) Product code [id number] Unit Number [id number] * [facility] Product Blood Type OPOS [facility] Dispense Status PRESUMED TRANSFUSED [facility] Blood Venous blood specimen / Unknown 12/30/2024 2:58 PM CDT Narrative [facility] - 12/30/2024 10:15 PM CDT Are special requirements needed? (all products are leukoreduced)->No Date required:-[id number] PLT # of Units:-1-Units Reasons:-Prior to cardiovascular surgery, plt < 100 K/cumm} Angel [place] MD BLOOD BANK PRODUCT ORDERABLE S Final Result Performing Organization Address [facility] Co de Phone Number ARON BHAT [address] Kaylene Valdez [facility] [place] [address] * (ABNORMAL) POC Blood Gas and Chemistries, Arterial - (12/30/2024 2:41 PM CDT) pH, Art POC 7.34(L) 7.35 - 7.45 pCO2, Art POC 42 35 - 45 mmHg CERNER CH pO2, Art POC 196(H) 83 - 108 mmHg CERNER CH Na, POC 142 135 - 145 mmol/L CERNER CH K POC 3.6 3.3 - 4.9 mmol/L CERNER CH Comment: Interpretive Data This method is not able to assess for hemolysis, which may falsely increase potassium concentrations. If further testing is needed to evaluate this result, consider in-laboratory plasma potassium. Current Interpretive Data was last revised on 2022. Ionized Ca, POC 4.90 4.50 - 5.10 mg/dL CERNER CH Glucose, POC 128 70 - 199 mg/dL CERNER CH Lactate, POC 1.0 0.7 - 2.0 mmol/L CERNER CH O2Hb, Art POC 96.8(H) 90.0 - 95.0 % CERNER CH SO2 (leatha) arterial 100(H) 90 - 95 % CERNER CH Total CO2, Art POC 24 21 - 30 mmol/L CERNER CH BE, art, POC -3 mmol/L CERNER CH Hct, POC 23.0(L) 38.9 - 50.3 % CERNER CH Total Hb, POC 7.7(L) 13.0 - 17.5 g/dL CERNER CH Blood 12/30/2024 2:41 PM CDT 12/30/2024 2:41 PM CDT us Angel [place] MD LAB POCT ORDERABLES - DEVICE Final Result ARON BHAT [address] Kaylene Valdez Department [place] [address] * (ABNORMAL) Protime-INR (12/30/2024 2:41 PM CDT) PT 21.8(H) 9.7 - 13.0 sec INR 1.99(H) 0.90 - 1.20 ARON Comment: Interpretive data Oral anticoagulant therapeutic ranges: Venous thromboembolism prophylaxis or treatment: 2.0-3.0 CARDIOLOGY Standard range: 2.0-3.0 High-intensity range: 2.5-3.5 Refer to indication-specific guidelines for appropriate target ranges for prosthetic heart valve replacement. Current interpretive data was last revised on 2019. Blood 12/30/2024 2:41 PM CDT 12/30/2024 2:44 PM CDT Narrative [facility] - 12/30/2024 2:54 PM CDT Please call results to ext. [phone]. Thanks. Angel [place] MD LAB BLOOD ORDERABLES Final R esult Performing Organization Address [facility] Co de Phone Number [facility] [address] [place] [address] * (ABNORMAL) Platelet count (12/30/2024 2:41 PM CDT) Plt 52(L) 150 - 400 K/cumm Blood 12/30/2024 2:41 PM CDT 12/30/2024 2:44 PM CDT Narrative [facility] - 12/30/2024 2:47 PM CDT Please call results to ext. [phone]. Thanks. Angel [place] MD LAB BLOOD ORDERABLES Final R esult Performing Organization Address [facility] [address] [facility]/ZIP Co de Phone Number LETIBERTO [address] [place] [address] * POC Activated Clotting Time, High Range (12/30/2024 2:38 PM CDT) ACT 137 87 - 138 sec POC Performer [id number] [facility] Blood 12/30/2024 2:38 PM CDT 12/30/2024 2:38 PM CDT Angel [place] MD LAB BLOOD ORDERABLES Final R esult ARON BHAT [address] [place] [address] * Transfuse plasma (12/30/2024 2:21 PM CDT) Blood Candelaria Ruano Dipti DO BLOOD TRANSFUSION ORDERABLE S Final Result Performing Organization Address City/[facility] [address]/ZIP Co de Phone Number ARON BHAT [address] [address] Department [place] [address] * (ABNORMAL) POC Blood Gas and Chemistries, Arterial - (12/30/2024 2:20 PM CDT) pH, Art POC 7.32(L) 7.35 - 7.45 pCO2, Art POC 43 35 - 45 mmHg CERNER CH pO2, Art POC 231(H) 83 - 108 mmHg CERNER CH Na, POC 141 135 - 145 mmol/L CERNER CH K POC 3.8 3.3 - 4.9 mmol/L CERNER CH Comment: Interpretive Data This method is not able to assess for hemolysis, which may falsely increase potassium concentrations. If further testing is needed to evaluate this result, consider in-laboratory plasma potassium. Current Interpretive Data was last revised on 2022. Ionized Ca, POC 4.14(L) 4.50 - 5.10 mg/dL CERNER CH Glucose, POC 128 70 - 199 mg/dL CERNER CH Lactate, POC 0.9 0.7 - 2.0 mmol/L CERNER CH O2Hb, Art POC 97.2(H) 90.0 - 95.0 % CERNER CH SO2 (leatha) arterial 100(H) 90 - 95 % CERNER CH Total CO2, Art POC 24 21 - 30 mmol/L CERNER CH BE, art, POC -4 mmol/L CERNER CH Hct, POC 26.0(L) 38.9 - 50.3 % CERNER CH Total Hb, POC 8.5(L) 13.0 - 17.5 g/dL CERNER CH Blood 12/30/2024 2:20 PM CDT 12/30/2024 2:20 PM CDT Angel [place] MD LAB POCT ORDERABLES - DEVICE Final Result Performing Organization Address [facility]/State/ZIP Co de Phone Number ARON BHAT [address] [address] [place] [place] [address] * Transfuse platelets (12/30/2024 2:18 PM CDT) Blood us Candelaria [place] Dipti DO BLOOD TRANSFUSION ORDERABLE S Final Result Performing Organization Address [facility] Co de Phone Number LETIBERTO BHAT [address] Kaylene Valdez [facility] [place] [employer] [place] [address] * POC Activated Clotting Time, High Range (12/30/2024 2:16 PM CDT) ACT 134 87 - 138 sec POC Performer [id number] ARON Blood 12/30/2024 2:16 PM CDT 12/30/2024 2:16 PM CDT Angel [place] MD LAB BLOOD ORDERABLES Final R esult Performing Organization Address [facility] [address]/[facility] Co de Phone Number ARON BHAT [address] Kaylene Valdez [place] [place] [address] * Transfuse plasma (12/30/2024 2:13 PM CDT) Blood us Candelaria [place] Dipti DO BLOOD TRANSFUSION ORDERABLE S Final Result Performing Organization Address City/[facility] [address]/ZIP Co de Phone Number LETIBERTO BHAT [address] [address] Valdez [place] [place] [address] * Transfuse platelets (12/30/2024 2:12 PM CDT) Blood us Gaona [place] Dipti DO BLOOD TRANSFUSION ORDERABLE S Final Result Performing Organization Address City/[facility] [address]/ZIP Co de Phone Number LETIBERTO BHAT [address] Kaylene Valdez [place] [place] [address] * (ABNORMAL) POC Blood Gas and Chemistries, Arterial - (12/30/2024 1:38 PM CDT) pH, Art POC 7.39 7.35 - 7.45 pCO2, Art POC 41 35 - 45 mmHg CERNER CH pO2, Art POC 250(H) 83 - 108 mmHg CERNER CH Na, POC 139 135 - 145 mmol/L CERNER CH K POC 5.4(H) 3.3 - 4.9 mmol/L CERNER CH Comment: Interpretive Data This method is not able to assess for hemolysis, which may falsely increase potassium concentrations. If further testing is needed to evaluate this result, consider in-laboratory plasma potassium. Current Interpretive Data was last revised on 2022. Ionized Ca, POC 4.21(L) 4.50 - 5.10 mg/dL CERNER CH Glucose, POC 141 70 - 199 mg/dL CERNER CH Lactate, POC 0.9 0.7 - 2.0 mmol/L CERNER CH O2Hb, Art POC 96.8(H) 90.0 - 95.0 % CERNER CH SO2 (leatha) arterial 99(H) 90 - 95 % CERNER CH Total CO2, Art POC 26 21 - 30 mmol/L CERNER CH BE, art, POC 0 mmol/L CERNER CH Hct, POC 30.0(L) 38.9 - 50.3 % CERNER CH Total Hb, POC 10.0(L) 13.0 - 17.5 g/dL CERNER CH Blood 12/30/2024 1:38 PM CDT 12/30/2024 1:38 PM CDT us Angel [place] MD LAB POCT ORDERABLES - DEVICE Final Result ARON BHAT [address] [address] Department [place] [address] * (ABNORMAL) POC Activated Clotting Time, High Range (12/30/2024 1:37 PM CDT) ACT 856(H) 87 - 138 sec POC Performer [id number] CERNER CH Blood 12/30/2024 1:37 PM CDT 12/30/2024 1:37 PM CDT Angel [place] MD LAB BLOOD ORDERABLES Final R esult Performing Organization Address [facility]/ZIP Co de Phone Number ARON BHAT [address] [address]lene [place] [employer] [place] [address] * (ABNORMAL) Platelet count (12/30/2024 1:11 PM CDT) Plt 79(L) 150 - 400 K/cumm Blood 12/30/2024 1:11 PM CDT 12/30/2024 1:17 PM CDT Narrative ARON - 12/30/2024 1:20 PM CDT Please call results to ext. [phone]. Thanks. Angel [place] MD LAB BLOOD ORDERABLES Final R esult Performing Organization Address [facility] Co de Phone Number ARON BHAT [address] [address] Department [employer] [place] [address] * (ABNORMAL) POC Activated Clotting Time, High Range (12/30/2024 1:03 PM CDT) ACT >1,005(H) 87 - 138 sec POC Performer [id number] [facility] Blood 12/30/2024 1:03 PM CDT 12/30/2024 1:03 PM CDT Angel [place] MD LAB BLOOD ORDERABLES Final R esult Performing Organization Address City/[facility] [address]/[facility] Co de Phone Number ARON BHAT [address] [address] [facility] [place] [employer] [place] [address] * (ABNORMAL) POC Blood Gas and Chemistries, Arterial - (12/30/2024 1:03 PM CDT) pH, Art POC 7.38 7.35 - 7.45 pCO2, Art POC 39 35 - 45 mmHg CERNER CH pO2, Art POC 384(H) 83 - 108 mmHg CERNER CH Na, POC 136 135 - 145 mmol/L CERNER CH K POC 6.1(C) 3.3 - 4.9 mmol/L CERNER CH Comment: Interpretive Data This method is not able to assess for hemolysis, which may falsely increase potassium concentrations. If further testing is needed to evaluate this result, consider in-laboratory plasma potassium. Current Interpretive Data was last revised on 2022. Ionized Ca, POC 4.29(L) 4.50 - 5.10 mg/dL CERNER CH Glucose, POC 160 70 - 199 mg/dL CERNER CH Lactate, POC 0.8 0.7 - 2.0 mmol/L CERNER CH O2Hb, Art POC 96.9(H) 90.0 - 95.0 % CERNER CH SO2 (leatha) arterial 100(H) 90 - 95 % CERNER CH Total CO2, Art POC 24 21 - 30 mmol/L CERNER CH BE, art, POC -2 mmol/L CERNER CH Hct, POC 31.0(L) 38.9 - 50.3 % CERNER CH Total Hb, POC 10.3(L) 13.0 - 17.5 g/dL CERNER CH Blood 12/30/2024 1:03 PM CDT 12/30/2024 1:03 PM CDT us Angel [place] MD LAB POCT ORDERABLES - DEVICE Final Result ARON [address] [address] Department [place] [address] * (ABNORMAL) POC Activated Clotting Time, High Range (12/30/2024 12:06 PM CDT) ACT >1,005(H) 87 - 138 sec POC Performer [id number] CERNER CH Blood 12/30/2024 12:0 6 PM CDT 12/30/2024 12:06 PM CDT Angel [place] MD LAB BLOOD ORDERABLES Final R esult ARON BHAT [address] [address] Department [place] [address] * (ABNORMAL) POC Blood Gas and Chemistries, Arterial - (12/30/2024 12:06 PM CDT) pH, Art POC 7.40 7.35 - 7.45 pCO2, Art POC 36 35 - 45 mmHg CERNER CH pO2, Art POC 236(H) 83 - 108 mmHg CERNER CH Na, POC 135 135 - 145 mmol/L CERNER CH K POC 5.0(H) 3.3 - 4.9 mmol/L CERNER CH Comment: Interpretive Data This method is not able to assess for hemolysis, which may falsely increase potassium concentrations. If further testing is needed to evaluate this result, consider in-laboratory plasma potassium. Current Interpretive Data was last revised on 2022. Ionized Ca, POC 4.40(L) 4.50 - 5.10 mg/dL CERNER CH Glucose, POC 138 70 - 199 mg/dL CERNER CH Lactate, POC 0.8 0.7 - 2.0 mmol/L CERNER CH O2Hb, Art POC 97.6(H) 90.0 - 95.0 % CERNER CH SO2 (leatha) arterial 100(H) 90 - 95 % CERNER CH Total CO2, Art POC 23 21 - 30 mmol/L CERNER CH BE, art, POC -2 mmol/L CERNER CH Hct, POC 32.0(L) 38.9 - 50.3 % CERNER CH Total Hb, POC 10.8(L) 13.0 - 17.5 g/dL CERNER CH Blood 12/30/2024 12:0 6 PM CDT 12/30/2024 12:06 PM CDT us Angel [place] MD LAB POCT ORDERABLES - DEVICE Final Result ARON BHAT [address] [address] Department [place] [address] * (ABNORMAL) POC Activated Clotting Time, High Range (12/30/2024 11:05 AM CDT) ACT >1,005(H) 87 - 138 sec POC Performer [id number] CERNER CH Blood 12/30/2024 11:0 5 AM CDT 12/30/2024 11:05 AM CDT Angel [place] MD LAB [place]LOOD [place] [address] [address] Department [place] [address] * (ABNORMAL) POC Blood Gas and Chemistries, Arterial - (12/30/2024 11:05 AM CDT) pH, Art POC 7.34(L) 7.35 - 7.45 pCO2, Art POC 39 35 - 45 mmHg CERNER CH pO2, Art POC 278(H) 83 - 108 mmHg CERNER CH Na, POC 136 135 - 145 mmol/L CERNER CH K POC 3.8 3.3 - 4.9 mmol/L CERNER CH Comment: Interpretive Data This method is not able to assess for hemolysis, which may falsely increase potassium concentrations. If further testing is needed to evaluate this result, consider in-laboratory plasma potassium. Current Interpretive Data was last revised on 2022. Ionized Ca, POC 4.40(L) 4.50 - 5.10 mg/dL CERNER CH Glucose, POC 108 70 - 199 mg/dL CERNER CH Lactate, POC 0.5(L) 0.7 - 2.0 mmol/L CERNER CH O2Hb, Art POC 96.8(H) 90.0 - 95.0 % CERNER CH SO2 (leatha) arterial 100(H) 90 - 95 % CERNER CH Total CO2, Art POC 22 21 - 30 mmol/L CERNER CH BE, art, POC -4 mmol/L CERNER CH Hct, POC 33.0(L) 38.9 - 50.3 % CERNER CH Total Hb, POC 11.1(L) 13.0 - 17.5 g/dL CERNER CH Blood 12/30/2024 11:0 5 AM CDT 12/30/2024 11:05 AM CDT us Angel [place] MD LAB POCT ORDERABLES - DEVICE Final Result ARON [address] [facility] [place] [address] * Surgical pathology (12/30/2024 10:47 AM CDT) Tissue (Lung BLEB) 12/30/2024 1:43 PM CDT Narrative PATHOLOGY - 01/06/2025 9:58 AM CDT EPIC results best viewed via link to PDF [facility] Department of Pathology [address] [place] [id number] Note to Patients: This report may contain a detailed description of human tissue sent by a health care provider to the laboratory for pathologic evaluation. The content of this report is essential for diagnosis and may provide important critical findings. This information may be unfamiliar to patients to review without a medical professional present. It is advised that the patient review this report in the presence of a health care provider who can answer questions and explain the details. Final Report Patient Name: DENISE JAMES Address: [address] [place] [address], [place] [address] Gender: M : 1945 (Age: 79) Service: Cardiothoracic Location: Hospital #: [id number] Patient Type: [facility] Taken: 12/30/2024 Received: 12/31/2024 Accessioned: 12/31/2024 Reported: 01/06/2025 Physician(s):Adele Altamirano M.D. Diagnosis: A. Left lung bleb, wedge resection- Hyalinized pleural tissue with calcific change and patchy chronic inflammation Negative for carcinoma Sandee Khalil M.D. Report Electronically Reviewed and Signed Out By Sandee Khalil M.D. 01/06/2025 09:58:06 Specimen(s) Received: A: Left lung bleb Microscopic Description: The patients clinical history is reviewed. Note is made of CAD with bypass surgery as well as large blebs/bulla in the left lung (medial portion of lingula compressing other areas of lung). Microscopic examination corroborates the diagnosis. Clinical History: 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, unspecified vessel or lesion type Procedure: CABG x4, encompass clamp, DAI, left upper lobe, wedge resection of bleb Gross Description: Received in a single formalin filled container labeled with DENISE JAMES and left lung bleb . It is a 7 x 5 x 5 cm intact bleb with thick dolan calcification. No normal lung is present. The specimen is decalcified. Represented in A1 through A4 Tobias Barrientos R.N., P.ABryanna/Toyin Mark M.D. REPORT IMAGES AND SCANNED DOCUMENTS, IF INCLUDED, ONLY VIEWABLE IN PDF VERSION OF REPORT The performance characteristics of some immunohistochemical stains, fluorescence in-situ hybridization tests and immunophenotyping by flow cytometry cited in this report (if any) were determined by the Surgical Pathology Department at [facility] as part of an ongoing quality assurance practice manager program and in compliance with federally mandated regulations drawn from the Clinical Laboratory Improvement Act of 1988 (CLIA '88). Some of these tests rely on the use of analyte specific reagents and are subject to specific labeling requirements by the US Food and Drug Administration. Such diagnostic tests may only be performed in a facility that is certified by the Department of Health and Human Services as a high complexity laboratory under CLIA '88. The FDA has determined that such clearance or approval is not necessary. This test is used for clinical purposes. It should not be regarded as investigational or for research. Nevertheless, federal rules concerning the medical use of analyte specific reagents require that the following disclaimer be attached to the report: This test was developed and its performance characteristics determined by the Surgical Pathology Department [facility]. It has not been cleared or approved by the U. S. Food and Drug Administration. Note for decalcified specimens: This assay has not been validated on decalcified tissues. Results should be interpreted with caution given the possibility of false negativity on decalcified specimens Angel [place] MD LAB PATHOLOGY ORDERABLES Fin al Result PATHOLOGY [address] [place] [address] * (ABNORMAL) POC Activated Clotting Time, High Range (12/30/2024 10:38 AM CDT) ACT 820(H) 87 - 138 sec POC Performer [id number] CERNER CH Blood 12/30/2024 10:3 8 AM CDT 12/30/2024 10:38 AM CDT us Angel [place] MD LAB BLOOD ORDERABLES Final R esult [facility] [address] [address] [place] [address] * (ABNORMAL) POC Blood Gas and Chemistries, Arterial - (12/30/2024 10:02 AM CDT) pH, Art POC 7.36 7.35 - 7.45 pCO2, Art POC 42 35 - 45 mmHg CERNER CH pO2, Art POC 461(H) 83 - 108 mmHg CERNER CH Na, POC 135 135 - 145 mmol/L CERNER CH K POC 4.3 3.3 - 4.9 mmol/L CERNER CH Comment: Interpretive Data This method is not able to assess for hemolysis, which may falsely increase potassium concentrations. If further testing is needed to evaluate this result, consider in-laboratory plasma potassium. Current Interpretive Data was last revised on 2022. Ionized Ca, POC 4.85 4.50 - 5.10 mg/dL CERNER CH Glucose, POC 106 70 - 199 mg/dL CERNER CH Lactate, POC 0.5(L) 0.7 - 2.0 mmol/L CERNER CH O2Hb, Art POC 97.2(H) 90.0 - 95.0 % CERNER CH SO2 (leatha) arterial 100(H) 90 - 95 % CERNER CH Total CO2, Art POC 25 21 - 30 mmol/L CERNER CH BE, art, POC -2 mmol/L CERNER CH Hct, POC 43.0 38.9 - 50.3 % CERNER CH Total Hb, POC 14.3 13.0 - 17.5 g/dL CERNER CH Blood 12/30/2024 10:0 2 AM CDT 12/30/2024 10:02 AM CDT Angel [place] MD LAB POCT ORDERABLES - DEVICE Final Result ARON BHAT [address] [facility] [place] [address] * Peripheral IV Catheter (12/30/2024 9:14 AM CDT) Narrative Khushi Muñoz AA - 12/30/2024 9:14 AM CDT Khushi Muñoz AA 12/30/2024 9:15 AM Peripheral IV Catheter Patient location: OR Staff: Supervising provider: Candelaria Resendez DO Placed by: Anesthesiologist: Candelaria Resendez DO Preprocedure prep: Prep solution: alcohol PPE: gloves and provider hat/mask PIV line: Laterality: right Site: forearm Catheter size: 16 g Technique: anatomical landmarks and direct visualization Procedure details: good blood return Number of attempts: 1 Assessment: Events: patient tolerated procedure well with no complications us Candelaria Resendez DO ANESTHESIA ORDERABLES Edite d Result - Final * BW AN SHEATH INTRODUCER PERFORMABLE, PULMONARY ARTERY CATH (12/30/2024 9:13 AM CDT) Narrative Khushi Muñoz AA - 12/30/2024 9:13 AM CDT Khushi Muñoz AA 12/30/2024 9:14 AM Central Venous Line Patient location: OR Indication: central venous access and CVP monitoring Staff: Supervising provider: Candelaria Resendez DO Placed by: AA: Khushi Muñoz AA Procedure prep: Patient position: Trendelenburg. PPE: provider hat/mask, sterile gloves, sterile gown, provider hand hygiene and full body drape. Prep solution: chlorhexadine/alcohol was applied to area. Ultrasound Evaluation: Ultrasound was used prior to prep. Central line: Laterality: right Site: internal jugular Catheter type: multi-lumen access catheter (MAC) Catheter size: 9 Fr. Technique: anatomy identified with ultrasound, vein located with finder needle, Seldinger technique, wire threaded easily and wire removed intact Venous verification: pressure transduced Post insertion: all ports aspirated, all ports flushed easily, line sutured in place and occlusive dressing applied Chlorhexidine patch applied: yes Number of attempts: 1 PA catheter placement: PA catheter type: oximetric PA catheter size: 8 Fr PA catheter laterality: right PA catheter site: internal jugular Placement guided by: pressure tracing changes and verified by PEDRO PA catheter depth 48 cmNo Assessment: Events: patient tolerated procedure well with no complications Candelaria Resendez DO ANESTHESIA ORDERABLES Final Result * Arterial Line (12/30/2024 9:12 AM CDT) Narrative Khushi Muñoz AA - 12/30/2024 9:12 AM CDT Khushi Muñoz AA 12/30/2024 9:13 AM Arterial Line Patient location: pre-op holding Indication: continuous blood pressure monitoring and blood sampling needed Staff: Supervising provider: Candelaria Resendez DO Placed by: AA: Khushi Muñoz AA Procedure prep: Prep solution: chlorhexadine/alcohol Prep: provider hat/mask and sterile gloves Skin infiltrated with lidocaine 1%: yes Arterial line: Catheter size: 20 gauge Catheter length: 1 and 3/4 inch Catheter type: wire-guided catheter Seldinger technique: yes Laterality: right Site: radial artery Line secured: Tegaderm and tape Results: good waveform and good blood return Number of attempts: 1 Assessment: Events: patient tolerated procedure well with no complications Candelaria Resendez DO ANESTHESIA ORDERABLES Final Result * CO AN ELECTIVE ENDOTRACHEAL AIRWAY (12/30/2024 9:11 AM CDT) Narrative Khushi Muñoz AA - 12/30/2024 9:11 AM CDT Khushi Muñoz AA 12/30/2024 9:12 AM Airway Patient location: OR Urgency: elective Indications for airway management: anesthesia and airway protection Difficult airway: no Staff: Supervising provider: Candelaria Resendez DO Placed by: AA: Khushi Muñoz AA Emergent airway documentation: Risks and benefits discussed: yes Consent obtained: yes Consent given by: patient Airway prep: Preoxygenated: yes Patient position: sniffing Mask difficulty assessment: 1 - vent by mask Spontaneous ventilation during airway: absent Sedation level during airway: GA Final airway details: Final airway type: endotracheal airway Tube type: ETT ETT size: 8.0 mm Cuffed: yes Technique used for successful ETT placement: video laryngoscopy Devices/Methods used in placement: stylet Insertion site: oral Blade type: Jung Video blade type: Keith Blade size: 4 Cormack-Lehane (video): grade I - full view of glottis Cuff volume: 5 mL Cuff inflated with: air ETT to lips: 22 cm Placement verified by: auscultation and CO2 detection Airway secured with: silk tape Number of attempts: 1 [facility] ANESTHESIA ORDERABLES Final Result * (ABNORMAL) POC Blood Gas and Chemistries, Arterial - (12/30/2024 8:54 AM CDT) pH, Art POC 7.44 7.35 - 7.45 pCO2, Art POC 37 35 - 45 mmHg CERNER CH pO2, Art POC 410(H) 83 - 108 mmHg CERNER CH Na, POC 136 135 - 145 mmol/L CERNER CH K POC 4.0 3.3 - 4.9 mmol/L CERNER CH Comment: Interpretive Data This method is not able to assess for hemolysis, which may falsely increase potassium concentrations. If further testing is needed to evaluate this result, consider in-laboratory plasma potassium. Current Interpretive Data was last revised on 2022. Ionized Ca, POC 4.80 4.50 - 5.10 mg/dL CERNER CH Glucose, POC 99 70 - 199 mg/dL CERNER CH Lactate, POC 0.9 0.7 - 2.0 mmol/L CERNER CH O2Hb, Art POC 98.5(H) 90.0 - 95.0 % CERNER CH SO2 (leatha) arterial 100(H) 90 - 95 % CERNER CH Total CO2, Art POC 26 21 - 30 mmol/L CERNER CH BE, art, POC 1 mmol/L CERNER CH Hct, POC 42.0 38.9 - 50.3 % CERNER CH Total Hb, POC 14.1 13.0 - 17.5 g/dL CERNER CH Blood 12/30/2024 8:54 AM CDT 12/30/2024 8:54 AM CDT us Angel [place] MD LAB POCT ORDERABLES - DEVICE Final Result Performing Organization Address [facility] Co de Phone Number ARON BHAT [address] [address] [facility] [place] [address] * POC Activated Clotting Time, High Range (12/30/2024 8:51 AM CDT) ACT 115 87 - 138 sec POC Performer [id number] LETIBERTO Blood 12/30/2024 8:51 AM CDT 12/30/2024 8:51 AM CDT us Angel [place] MD LAB BLOOD ORDERABLES Final R esult Performing Organization Address [facility] [address] [facility] de Phone Number ARON BHAT [address] [address] Department [place] [place] [address] * Check Sample (12/30/2024 7:45 AM CDT) ABO Rh B Negative CH HCLL OTHER 12/30/2024 7:45 AM CDT 12/30/2024 7:50 AM CDT us Agnel [place] MD LAB BLOOD ORDERABLES Final R esult Performing Organization Address [facility] de Phone Number ARON BHAT [address] [address] [facility] [place] [place] [address] CH * PEDRO Add-On For OR (12/30/2024 7:16 AM CDT) BSA 2.13 m2 CONS SCIMAGE Narrative CONS SCIMAGE - 12/30/2024 7:16 AM CDT Procedure Auto Finalized by Rule: BW CV PEDRO DURING CASE OR Please see the Anesthesiologist's Procedure Note for the results. us Candelaria Terrello DO CV ECHO PROCEDURES Final Re sult CONS SCIMAGE * Potassium, whole blood (12/30/2024 6:55 AM CDT) Potassium, bld 4.3 3.3 - 4.9 mmol/L Comment: Interpretive Data This method is not able to assess for hemolysis, which may falsely increase potassium concentrations. If further testing is needed to evaluate this result, consider in-laboratory plasma potassium. Current Interpretive Data was last revised on 2022. Blood 12/30/2024 6:55 AM CDT 12/30/2024 7:02 AM CDT Roxie Blanco NP LAB BLOOD ORDERABLES Final Result Performing Organization Address [facility] Co de Phone Number ARON BHAT [address] [address] Department [place] [place] [address] * Prepare platelets: 2 Units (12/30/2024 6:47 AM CDT) Product code [id number] CERNER CH Unit Number [id number]- S CERNER CH Product Blood Type OPOS CERNER CH Dispense Status PRESUMED TRANSFUSED CERNER CH Product code [id number] Unit Number [id number]- S CERNER CH Product Blood Type OPOS CERNER CH Dispense Status PRESUMED TRANSFUSED CERNER CH Blood Venous blood specimen / Unknown 12/30/2024 6:47 AM CDT Narrative CERNER CH - 12/30/2024 10:15 PM CDT Specify Procedure:->CABG Are special requirements needed? (all products are leukoreduced)->No Date required:-20241230 PLT # of Units:-2-Units Reasons:-Hold for procedure (specify procedure)} Jessica Kimble LABOR CUSTODIAN BLOOD BANK PRODUCT ORDERAB LES Final Result Performing Organization Address City/[facility]/ZIP Co de Phone Number ARON BHAT [address] [address] Department of [employer] [place], [place] [id number] * Prepare plasma: 2 Units Standard plasma (12/30/2024 6:47 AM CDT) Product code [id number] CERNER CH Unit Number [id number]- I CERNER CH Product Blood Type BPOS CERNER CH Dispense Status PRESUMED TRANSFUSED CERNER CH Product code [id number] Unit Number [id number]- H CERNER CH Product Blood Type ABPO CERNER CH Dispense Status PRESUMED TRANSFUSED CERNER CH Blood Venous blood specimen / Unknown 12/30/2024 6:47 AM CDT Narrative CERNER CH - 12/30/2024 10:15 PM CDT Specify Procedure:->CABG, encompass clamp, MARC wedge Is this plasma order intended for a COVID-19 patient as convalescent plasma?->Standard plasma Special Requirements Needed?->No Date required:-20241230 FFP # of Units:-2-Units Reasons:-Hold for procedure (specify procedure)} Jessica Kimble NP BLOOD BANK [place]ODUCT [place] [address] [address] Department of Laboratories [place] [id number] * Prepare RBC: 4 Units (12/30/2024 6:47 AM CDT) Product code [id number] CERNER CH Unit Number [id number]- Z CERNER CH Product Blood Type BNEG CERNER CH Dispense Status PRESUMED TRANSFUSED CERNER CH Product code [id number] CERNER CH Unit Number [id number]- M CERNER CH Product Blood Type BNEG CERNER CH Dispense Status PRESUMED TRANSFUSED CERNER CH Product code [id number] Unit Number [id number]- R CERNER CH Product Blood Type BNEG CERNER CH Dispense Status PRESUMED TRANSFUSED CERNER CH Product code [id number] CERNER CH Unit Number [id number]- I CERNER CH Product Blood Type BNEG CERNER CH Dispense Status RETURNED CERNER CH Blood 12/30/2024 6:47 AM CDT Narrative CERNER CH - 01/03/2025 10:15 PM CDT Specify Procedure:->CABG, encompass clamp, MARC wedge Are special requirements needed? (All products are leukoreduced and CMV- safe)- >No Date required:-20241230 [facility] # of [id number] Reasons:-Hold for procedure (specify procedure)} us Jessica Kimble NP BLOOD BANK PRODUCT ORDERAB LES Final Result ARON [address] [address] Department [place] [address] * Pulmonary Function Test -[facility]; Complete/Full (12/24/2024 10:23 AM CDT) Anatomical Region Laterality Modality PFT Narrative 12/24/2024 3:43 PM CDT 12/24/2024 FVC 4.82 L 110% FEV1 3.4 L 105% FEV1/FVC ratio 70% TLC 8.21 L 107% RV 3.62 L 130% DLCO 18.4 mL/minute/mmHg 68%, flow volume loop without evidence of upper airway obstruction, room air O2 saturation 98% Impression very mild hyperinflation with mild reduction diffusing capacity. Unremarkable flow rates, flow volume loop and normal oxygen saturation at rest Janice Callahan MD [facility] Angel [place] MD PFT ORDERABLES Final Result * US Vein Mapping Lower Extremity Bilateral (12/18/2024 1:30 PM CDT) Anatomical Region Laterality Modality Vascular Bilateral Ultrasound 12/18/2024 5:30 PM CDT Impressions 12/18/2024 5:30 PM CDT Diameter measurements of the right and the left greater saphenous veins as described above. Both greater saphenous veins are compressible. Electronically signed by: Sangeeta Harmon M.D. Narrative 12/18/2024 5:30 PM CDT EXAMINATION: US VEIN MAPPING DUPLEX LOWER EXTREMITY BILATERAL HISTORY: The patient is a 79-year-old male who presents with coronary artery disease. TECHNIQUE: The right and left saphenous veins were evaluated with carreno scale imaging for diameter measurements. FINDINGS: Right side: The diameter of the right greater saphenous vein at the saphenofemoral junction is 6.0 mm, in the upper thigh is 4.3 mm, the mid thigh is 3.7 mm and distal thigh is 4.8 mm. The diameter of the right greater saphenous vein at the level of the knee is 4.5 mm, in the proximal calf is 4.7 mm and distal calf is 3.3 mm. Left side: The diameter of the left greater saphenous vein at the saphenofemoral junction is 5.3 mm, in the upper thigh is 4.2 mm, the mid thigh is 5.2 mm and distal thigh is 5.3 mm. The diameter of the left greater saphenous vein at the level of the knee is 5.0 mm, in the proximal calf is 4.9 mm and distal calf is 2.7 mm. Procedure Note Sangeeta Harmon MD - 12/18/2024 EXAMINATION: US VEIN MAPPING DUPLEX LOWER EXTREMITY BILATERAL HISTORY: The patient is a 79-year-old male who presents with coronary artery disease. TECHNIQUE: The right and left saphenous veins were evaluated with carreno scale imaging for diameter measurements. FINDINGS: Right side: The diameter of the right greater saphenous vein at the saphenofemoral junction is 6.0 mm, in the upper thigh is 4.3 mm, the mid thigh is 3.7 mm and distal thigh is 4.8 mm. The diameter of the right greater saphenous vein at the level of the knee is 4.5 mm, in the proximal calf is 4.7 mm and distal calf is 3.3 mm. Left side: The diameter of the left greater saphenous vein at the saphenofemoral junction is 5.3 mm, in the upper thigh is 4.2 mm, the mid thigh is 5.2 mm and distal thigh is 5.3 mm. The diameter of the left greater saphenous vein at the level of the knee is 5.0 mm, in the proximal calf is 4.9 mm and distal calf is 2.7 mm. IMPRESSION: Diameter measurements of the right and the left greater saphenous veins as described above. Both greater saphenous veins are compressible. Electronically signed by: Sangeeta Harmon M.D. us Angel [place] MD IMG US PROCEDURES Final Resu lt * eGFR (12/18/2024 12:06 PM CDT) eGFR 63 >=60 mL/min/1. 73 m2 Comment: Interpretive Data Reference Interval Normal >/= 90 mL/min/1.73m2 Mildly decreased* 60 - 89 mL/min/1.73m2 Mildly to moderately decreased 45 - 59 mL/min/1.73m2 Moderately to severely decreased 30 - 44 mL/min/1.73m2 Severely decreased 15 - 29 mL/min/1.73m2 Kidney Failure < 15 mL/min/1.73m2 *Relative to young adult level Estimated glomerular filtration rate is determined by the 2020 CKD-EPI equation recommended by the National Kidney Foundation (A Unifying Approach to GFR Estimation: Recommendations of the NKF-ASK Task Force on Reassessing the Inclusion of Race in Diagnosing Kidney Disease, JASN 2020). The CKD-EPI equation should not be used for patients with unstable renal function and has not been validated in children and those over 70. Current interpretive data was last reviewed 2021. Blood 12/18/2024 12:0 6 PM CDT 12/18/2024 12:06 PM CDT us Angel [place] MD LAB BLOOD ORDERABLES Final R esult [facility] [address] [address] [place] [address] * (ABNORMAL) Basic metabolic panel (12/18/2024 12:06 PM CDT) Sodium 141 135 - 145 mmol/L Potassium, pl 4.2 3.3 - 4.9 mmol/L CERNER Chloride 102 97 - 110 mmol/L CERNER CH CO2 26 22 - 32 mmol/L CERNER CH Anion gap 13 2 - 15 mmol/L CERNER CH BUN 30(H) 6 - 25 mg/dL CERNER Creatinine 1.18 0.80 - 1.30 mg/dL CERNER Glucose 92 70 - 199 mg/dL CERNER CH Comment: Interpretive Data Fasting glucose >/= 126 mg/dl is diagnostic for diabetes. Fasting is defined as no caloric intake for at least 8 hours. Fasting glucose between 100 mg/dl to 125 mg/dl is diagnostic of prediabetes. In a patient with classic symptoms of hyperglycemia or hyperglycemic crisis, a random glucose >/= 200 mg/dl is diagnostic for diabetes. In the absence of unequivocal hyperglycemia, results should be confirmed by repeat testing. The classification and Diagnosis of Diabetes Diabetes Care 2021; 46: S19-S40. Current interpretive data was last revised 2022. Calcium 10.1 8.5 - 10.3 mg/dL [facility] Blood 12/18/2024 12:0 6 PM CDT 12/18/2024 12:06 PM CDT Angel [place] MD LAB BLOOD ORDERABLES Final R esult Performing Organization Address [facility] de Phone Number ARON [address] [address] Department [employer] [place] [address] * (ABNORMAL) aPTT (12/18/2024 12:05 PM CDT) aPTT 42(H) 28 - 38 sec Comment: Interpretive Data Heparin therapeutic range: 66.0 - 100.0 seconds. Range based on correlation with therapeutic heparin activity range of 0.3 - 0.7 Units/mL. Current interpretive data was last revised on 2023. Blood 12/18/2024 12:0 5 PM CDT 12/18/2024 12:05 PM CDT Angel [place] MD LAB BLOOD ORDERABLES Final R esult Performing Organization Address [facility] Co de Phone Number ARON [address] [address] Department [employer] [place], [place] [id number] * (ABNORMAL) Protime-INR (12/18/2024 12:05 PM CDT) PT 15.0(H) 9.7 - 13.0 sec INR 1.38(H) 0.90 - 1.20 [facility] Comment: Interpretive data Oral anticoagulant therapeutic ranges: Venous thromboembolism prophylaxis or treatment: 2.0-3.0 CARDIOLOGY Standard range: 2.0-3.0 High-intensity range: 2.5-3.5 Refer to indication-specific guidelines for appropriate target ranges for prosthetic heart valve replacement. Current interpretive data was last revised on 2019. Blood 12/18/2024 12:0 5 PM CDT 12/18/2024 12:05 PM CDT us Angel [place] MD LAB BLOOD ORDERABLES Final R esult Performing Organization Address City/[facility] de Phone Number [facility] [address] [address] [place] [address] * (ABNORMAL) CBC without differential (12/18/2024 12:05 PM CDT) WBC 6.03 3.80 - 9.90 K/cumm Hgb 16.6 13.0 - 17.5 g/dL [facility] Hct 49.4 38.9 - 50.3 % [facility] Plt 115(L) 150 - 400 K/cumm [facility] Comment:No clot detected in sample. MPV 11.2 9.1 - 12.3 fL [facility] RBC 5.50 4.30 - 5.80 M/cumm [facility] MCV 89.8 81.3 - 96.4 fL [facility] MCH 30.2 27.1 - 33.3 pg [facility] MCHC 33.6 32.3 - 35.7 g/dL [facility] RDW CV 13.0 11.1 - 14.9 % [facility] RDW SD 42.6 35.7 - 48.1 fL [facility] NRBC abs 0.00 0.00 - 0.01 K/cumm [facility] Blood 12/18/2024 12:0 5 PM CDT 12/18/2024 12:05 PM CDT Angel [place] MD LAB BLOOD ORDERABLES Final R esult ARON BHAT [address] [address] [place] [address] * (ABNORMAL) Urinalysis reflex to microscopic and culture Urine, clean voided (12/18/2024 11:54 AM CDT) Color, ur Yellow Yellow Clarity, ur Clear Clear [facility] Specific gravity, ur 1.011 1.003 - 1.030 [facility] pH, urine 5.0 [facility] Comment: Interpretive Data U rine pH is affected by diet, medications, systemic acid-base disturbances, and renal tubular function. pH may affect urinary stone formation. For example, urine pH below 6.0 may help reduce the tendency for calcium phosphate stones and pH greater than 6.0 may reduce the tendency for uric acid stone formation. Source: [facility] [employer] Current Interpretive Data was last revised on 2017 Protein, ur ql Negative Negative [facility] Glucose, ur ql 4+(A) Negative [facility] Ketones, ur Negative Negative [facility] Bilirubin, ur Negative Negative [facility] Blood, ur Negative Negative [facility] Urobilinogen, ur <2.0 <2.0 mg/dL [facility] Nitrite, ur Negative Negative [facility] Leukocyte esterase, ur Negative Negative [facility] UA reflex comment Reflex conditions for microscopic UA and culture not met. [facility] Urine, clean voided 12/18/2024 11:54 AM CDT 12/18/2024 12:29 PM CDT Angel [place] MD LAB MICROBIOLOGY - GENERAL O RDERABLES Final Result ARON BHAT [address] [address] [place] [address] * Type and screen (12/18/2024 11:54 AM CDT) ABO Rh B Negative Colton, indirect Negative [facility] Blood 12/18/2024 11:5 4 AM CDT 12/18/2024 12:10 PM CDT Narrative [facility] - 12/18/2024 12:59 PM CDT Has the patient had Daratumumab or Isatuximab in the past 6 months?->Unknown Angel [place] MD LAB BLOOD BANK TEST ORDERABL ES Final Result Performing Organization Address [facility] Co de Phone Number ARON [address] [address] [place] [address] * ECG 12 lead (12/18/2024 11:49 AM CDT) 12/18/2024 11:4 9 AM CDT Narrative [facility] - 12/18/2024 7:42 PM CDT Vent Rate: 51 bpm RR Interval: 1170 msec CO Interval: 228 msec QRS Duration: 94 msec QT Interval: 439 msec QTC Interval: 415 msec P-R-T Independence: 60 - 13 - 74 degrees IMPRESSION: SINUS BRADYCARDIA WITH FIRST DEGREE AV BLOCK ABNORMAL ECG Electronically Signed By: Dr. Emiliano Cuello [facility] Angel [place] MD ECG ORDERABLES Final Result Performing Organization Address [facility] de Phone Number [facility] * XR Chest PA Lateral 2 View (12/18/2024 11:35 AM CDT) Anatomical Region Laterality Modality Body, Chest N/A Computed Radiogr aphy 12/18/2024 11:5 2 AM CDT Impressions 12/18/2024 11:52 AM CDT No active disease. Electronically signed by: Sangeeta Harmon M.D. Narrative 12/18/2024 11:52 AM CDT EXAMINATION: XR CHEST PA LATERAL 2 VIEWS HISTORY: The patient is a 79-year-old male who presents with coronary artery disease. Comparison is made with the previous study dated 12/18/2024. TECHNIQUE: PA and lateral view of the chest. FINDINGS: Lungs clear. Cardiovascular structures unremarkable. Procedure Note Sangeeta Harmon MD - 12/18/2024 EXAMINATION: XR CHEST PA LATERAL 2 VIEWS HISTORY: The patient is a 79-year-old male who presents with coronary artery disease. Comparison is made with the previous study dated 12/18/2024. TECHNIQUE: PA and lateral view of the chest. FINDINGS: Lungs clear. Cardiovascular structures unremarkable. IMPRESSION: No active disease. Electronically signed by: Sangeeta Harmon M.D. us Angel [place] MD IMG XR PROCEDURES Final Resu lt * CT chest without contrast (12/18/2024 9:31 AM CDT) Anatomical Region Laterality Modality Body N/A Computed Tomogra phy 12/18/2024 10:0 6 AM CDT Impressions 12/18/2024 10:06 AM CDT 1. Large bulla versus cavitary lesion with irregular nodularity measuring 7.7 x 7.2 cm. Sequela from prior infectious/inflammatory process versus neoplastic process considered in the differential diagnosis. May consider PET/CT for further evaluation. 2. Few additional pulmonary nodules measuring up to 0.7 cm. 3. Severe centrilobular emphysematous changes. 4. Aortic and coronary artery atherosclerosis. 5. Additional findings as above. Electronically signed by: Kem Bartholomew II, D.O. Narrative 12/18/2024 10:06 AM CDT EXAMINATION: Computed tomography of the chest without intravenous contrast HISTORY: Assess anatomy for sternotomy. TECHNIQUE: Transaxial computed tomographic images of the chest were obtained without intravenous contrast according to the standard protocol. COMPARISON: None. FINDINGS: Severe centrilobular emphysematous changes. There is a large bulla versus cavitary lesion measuring 7.7 x 7.2 cm with associated irregular nodularity most significant in the anterior medial aspect with nodularity contacting the mediastinum, series 3 image 93. There is a focus of nodular interstitial thickening in the left lower lobe, series 3 image 128. Trace bilateral pleural effusions. Calcified nodules along the right inferior pleural surface. Noncalcified 7 mm right lower lobe nodule, series 3 image 116. Right upper lobe 5 mm nodule, series 3 image 79. No endobronchial or endotracheal lesions. Atherosclerotic calcific in the aorta and coronary arteries. No pericardial effusion. Small hiatal hernia. Parapelvic cysts in both kidneys. Mild bilateral gynecomastia. No acute osseous abnormality. Mild multilevel endplate changes in the visualized spine. Procedure Note Kem Bartholomew II, DO - 12/18/2024 EXAMINATION: Computed tomography of the chest without intravenous contrast HISTORY: Assess anatomy for sternotomy. TECHNIQUE: Transaxial computed tomographic images of the chest were obtained without intravenous contrast according to the standard protocol. COMPARISON: None. FINDINGS: Severe centrilobular emphysematous changes. There is a large bulla versus cavitary lesion measuring 7.7 x 7.2 cm with associated irregular nodularity most significant in the anterior medial aspect with nodularity contacting the mediastinum, series 3 image 93. There is a focus of nodular interstitial thickening in the left lower lobe, series 3 image 128. Trace bilateral pleural effusions. Calcified nodules along the right inferior pleural surface. Noncalcified 7 mm right lower lobe nodule, series 3 image 116. Right upper lobe 5 mm nodule, series 3 image 79. No endobronchial or endotracheal lesions. Atherosclerotic calcific in the aorta and coronary arteries. No pericardial effusion. Small hiatal hernia. Parapelvic cysts in both kidneys. Mild bilateral gynecomastia. No acute osseous abnormality. Mild multilevel endplate changes in the visualized spine. IMPRESSION: 1. Large bulla versus cavitary lesion with irregular nodularity measuring 7.7 x 7.2 cm. Sequela from prior infectious/inflammatory process versus neoplastic process considered in the differential diagnosis. May consider PET/CT for further evaluation. 2. Few additional pulmonary nodules measuring up to 0.7 cm. 3. Severe centrilobular emphysematous changes. 4. Aortic and coronary artery atherosclerosis. 5. Additional findings as above. Electronically signed by: Kem Bartholomew II, D.OBryanna us Angel [place] MD IMG CT PROCEDURES Final Resu lt * Cardiology Document Scan (11/19/2024 1:37 PM CDT) Anatomical Region Laterality Modality Other us Gustavo Iverson MD [facility] PRO CEDURES Final Result * (ABNORMAL) Lipid panel (11/19/2024 11:36 AM CDT) SCRIBED Cholesterol, Total 173 0 - 200 EXTERNAL LAB SCRIBED HDL 41 40 - 100 EXTERNAL LAB SCRIBED LDL 110(A) 0 - 100 EXTERNAL LAB SCRIBED Triglycerides 69 0 - 150 EXTERNAL LAB Blood 11/19/2024 11:3 6 AM CDT us Historical Provider LAB BLOOD ORDERABLES Jazmín l Result EXTERNAL LAB * Cardiology Document Scan (11/19/2024) Anatomical Region Laterality Modality Other Ripa Jenny Iverson MD CV CARDIAC SERVICES PRO CEDURES Final Result * TRANSTHORACIC ECHO (TTE) COMPLETE W DOPPLER/CF WO CONTRAST (11/07/2024 9:56 AM CDT) LV EF 45-50 % CONS SCIMAGE Anatomical Region Laterality Modality Ultrasound 11/07/2024 9:15 AM CDT Narrative 11/07/2024 12:43 PM CDT [facility] Medical Group Cardiology [address] [facility] [address] [id number] [place] [address] [address] [address] P:[phone] P:[phone] Echocardiographic Report Patient Name: DENISE JAMES : 1945 Study Date: 11/07/2024 9:15:36 AM Gender: M Tech: [facility] Location: [place] Ref Provider: GUSTAVO IVERSON Height(Cm): 185 BSA: 2.14 Weight(Kg): 88.9 Heart Rate: 59 BP: 120 / 64 Quality: Good Order Provider: GUSTAVO IVERSON PROCEDURES: Echocardiographic Report: Transthoracic echocardiogram with complete 2D, M-Mode, and color Doppler examination. With Strain Analysis. INDICATIONS: Heart Failure With Reduced EF. MEASUREMENTS: 2D/MM Value Range Doppler Value Range EF Mod BP 51 % [ 52 - 72 ] BANG Vmax 2.21 cm2 [ 2.00 - 4.00 ] EF Teich MM 51 % [ 52 - 72 ] AV Mean PG 5 mmHg Estimated EF 45-50 % AV Peak Andrew 1.39 m/s [ 1.00 - 1.70 ] LVIDd 2D 5.00 cm [ 4.20 - 5.80 ] AV Peak PG 8 mmHg LVIDd MM 4.99 cm [ 4.20 - 5.80 ] AV VTI 25.95 cm LVIDs 2D 3.81 cm [ 2.50 - 4.00 ] LVOT Diam 2.17 cm [ 1.70 - 2.10 ] LVIDs MM 3.69 cm [ 2.50 - 4.00 ] LVOT Peak Andrew 0.83 m/s [ 0.70 - 1.10 ] LVPWd 2D 0.91 cm [ 0.60 - 1.00 ] LVOT VTI 14.96 cm LVPWd MM 0.87 cm [ 0.60 - 1.00 ] MV E Peak Andrew 0.59 m/s [ 0.60 - 1.30 ] IVSd 2D 0.91 cm [ 0.60 - 1.00 ] MV A Peak Andrew 0.52 m/s [ 1.00 - 1.20 ] IVSd MM 1.21 cm [ 0.60 - 1.00 ] MV Mean PG 1 mmHg [ 0 - 5 ] LA Dimension 2D 3.49 cm [ 3.00 - 4.00 ] MV PHT 98 msec [ 20 - 100 ] LA Dimension MM 4.09 cm [ 3.00 - 4.00 ] MVA PHT 2.25 cm2 [ 2.00 - 4.00 ] AoR Diam 2D 3.60 cm [ 3.10 - 3.70 ] MV Decel Time 296 msec [ 104 - 258 ] AoR Diam MM 3.55 cm [ 3.10 - 3.70 ] PV Peak Andrew 0.95 m/s [ 0.40 - 0.80 ] LA Volume Index 36 cc/m2 [ 16 - 34 ] TR Peak Anderw 1.98 m/s [ 1.00 - 2.80 ] TR Peak PG 16 mmHg RVSP 19.00 mmHg [ 10.00 - 36.00 ] Lateral E` 0.08 m/s [ 0.10 - 0.15 ] E` 0.05 m/s E/E` 8 2D/MM Value Range Doppler Value Range - FINDINGS: Interpretation Site: Exam was interpreted at [facility]. Left Ventricle: Normal left ventricular size. Mild concentric left ventricular hypertrophy. Mild global left ventricular systolic dysfunction. Impaired diastolic relaxation Grade I. Ejection fraction is measured at 51 %. Ejection Fraction is visually estimated to be 45- 50 %. Global Longitudinal Strain is -15 %. GLS is abnormal. Right Ventricle: Normal right ventricular size. Normal right ventricular systolic function. Left Atrium: There is mild enlargement of left atrium. Right Atrium: There is mild enlargement of right atrium. Atrial Septum: Normal atrial septum. Mitral Valve: Trivial regurgitation of the mitral valve. Aortic Valve: No evidence of hemodynamically significant aortic stenosis by Doppler. Trileaflet aortic valve. No aortic regurgitation. Tricuspid Valve: Estimated peak RVSP is 19 mmHg. Mild tricuspid regurgitation. Pulmonic Valve: Normal appearance of the pulmonic valve. Trivial regurgitation in the pulmonic valve. Pericardium: Normal pericardium with no significant pericardial effusion. There is an anterior echo free space consistent with epicardial fat pad. Aorta: Normal aortic root. IVC: Normal size and normal respiratory collapse consistent with normal right atrial pressure (<5 mmHg). CONCLUSIONS: Normal left ventricular size. Mild concentric left ventricular hypertrophy. Mild global left ventricular systolic dysfunction. Impaired diastolic relaxation Grade I. Ejection fraction is measured at 51 %. Ejection Fraction is visually estimated to be 45- 50 %. Global Longitudinal Strain is -15 %. GLS is abnormal. Normal right ventricular size. Normal right ventricular systolic function. There is mild enlargement of left atrium. There is mild enlargement of right atrium. Mild tricuspid regurgitation. Normal sinus rhythm. Electronically Signed By: Gustavo Iverson MD 11/07/2024 12:43:04 PM CDT Procedure Note Gustavo Iverson MD - 11/07/2024 [facility] Medical Group Cardiology [address] [facility] [address], [place] [address] [address] [facility] [address], [place] [address] P:[phone] P:[phone] Echocardiographic Report Patient Name: DENISE JAMES : 1945 Study Date: 11/07/2024 9:15:36 AM Gender: M Tech: [facility] Location: [place] Ref Provider: GUSTAVO IVERSON Height(Cm): 185 BSA: 2.14 Weight(Kg): 88.9 Heart Rate: 59 BP: 120 / 64 Quality: Good Order Provider: GUSTAVO IVERSON PROCEDURES: Echocardiographic Report: Transthoracic echocardiogram with complete 2D, M-Mode, and color Dopplerexamination. With Strain Analysis. INDICATIONS: Heart Failure With Reduced EF. MEASUREMENTS: 2D/MM Value Range Doppler ValueRange EF Mod BP 51 % [ 52 - 72 ] BANG Vmax 2.21cm2 [ 2.00 - 4.00 ] EF Teich MM 51 % [ 52 - 72 ] AV Mean PG 5mmHg Estimated EF 45-50 % AV Peak Andrew 1.39m/s [ 1.00 - 1.70 ] LVIDd 2D 5.00 cm [ 4.20 - 5.80 ] AV Peak PG 8mmHg LVIDd MM 4.99 cm [ 4.20 - 5.80 ] AV VTI 25.95cm LVIDs 2D 3.81 cm [ 2.50 - 4.00 ] LVOT Diam 2.17 cm[ 1.70 - 2.10 ] LVIDs MM 3.69 cm [ 2.50 - 4.00 ] LVOT Peak Andrew 0.83m/s [ 0.70 - 1.10 ] LVPWd 2D 0.91 cm [ 0.60 - 1.00 ] LVOT VTI 14.96cm LVPWd MM 0.87 cm [ 0.60 - 1.00 ] MV E Peak Andrew 0.59m/s [ 0.60 - 1.30 ] IVSd 2D 0.91 cm [ 0.60 - 1.00 ] MV A Peak Andrew 0.52m/s [ 1.00 - 1.20 ] IVSd MM 1.21 cm [ 0.60 - 1.00 ] MV Mean PG 1 mmHg[ 0 - 5 ] LA Dimension 2D 3.49 cm [ 3.00 - 4.00 ] MV PHT 98 msec[ 20 - 100 ] LA Dimension MM 4.09 cm [ 3.00 - 4.00 ] MVA PHT 2.25cm2 [ 2.00 - 4.00 ] AoR Diam 2D 3.60 cm [ 3.10 - 3.70 ] MV Decel Time 296msec [ 104 - 258 ] AoR Diam MM 3.55 cm [ 3.10 - 3.70 ] PV Peak Andrew 0.95m/s [ 0.40 - 0.80 ] LA Volume Index 36 cc/m2 [ 16 - 34 ] TR Peak Andrew 1.98m/s [ 1.00 - 2.80 ] TR Peak PG 16 mmHg RVSP 19.00 mmHg [ 10.00 - 36.00 ] Lateral E` 0.08 m/s [ 0.10 - 0.15 ] E` 0.05 m/s E/E` 8 2D/MM Value Range Doppler ValueRange - FINDINGS: Interpretation Site: Exam was interpreted at [facility]. Left Ventricle: Normal left ventricular size. Mild concentric left ventricularhypertrophy. Mild global left ventricular systolic dysfunction. Impaired diastolic relaxation GradeI. Ejection fraction is measured at 51 %. Ejection Fraction is visually estimated dago 45-50 %. Global Longitudinal Strain is -15 %. GLS is abnormal. Right Ventricle: Normal right ventricular size. Normal right ventricular systolicfunction. Left Atrium: There is mild enlargement of left atrium. Right Atrium: There is mild enlargement of right atrium. Atrial Septum: Normal atrial septum. Mitral Valve: Trivial regurgitation of the mitral valve. Aortic Valve: No evidence of hemodynamically significant aortic stenosis by Doppler.Trileaflet aortic valve. No aortic regurgitation. Tricuspid Valve: Estimated peak RVSP is 19 mmHg. Mild tricuspid regurgitation. Pulmonic Valve: Normal appearance of the pulmonic valve. Trivial regurgitation in thepulmonic valve. Pericardium: Normal pericardium with no significant pericardial effusion. There is ananterior echo free space consistent with epicardial fat pad. Aorta: Normal aortic root. IVC: Normal size and normal respiratory collapse consistent with normal rightatrial pressure (<5 mmHg). CONCLUSIONS: Normal left ventricular size. Mild concentric left ventricularhypertrophy. Mild global left ventricular systolic dysfunction. Impaired diastolic relaxation GradeI. Ejection fraction is measured at 51 %. Ejection Fraction is visually estimated dago 45-50 %. Global Longitudinal Strain is -15 %. GLS is abnormal. Normal right ventricular size. Normal right ventricular systolicfunction. There is mild enlargement of left atrium. There is mild enlargement of right atrium. Mild tricuspid regurgitation. Normal sinus rhythm. Electronically Signed By: Gustavo Iverson MD 11/07/2024 12:43:04 PM CDT Gustavo Iverson MD CV ECHO PROCEDURES Jazmín l Result from Last 3 Months Insurance [employer] MEDICARE ADVANTAGE [employer] MEDICARE ADVANTAGE Advance Directives For more information, please contact: [phone] Documents on File Type Date Recorded Patient Fraud Manager Ibeth akers ADVANCE DIRECTIVE 01/10/2025 7:27 AM BASIL SAUL ADVANCE DIRECTIVE 01/10/2025 7:27 AM POWER OF DISPLAY MANAGER-MEDICAL ADVANCE DIRECTIVE 01/08/2025 2:58 PM Power of Pension Adviser-Medical * Full Code (Latest Code Status on File) Date Activated Date Inactivated Comments 12/30/2024 4:33 PM 01/08/2025 8:14 PM Healthcare Agents on File Name Relationship Healthcare Agent Relationsid p Communication Catina James Spouse Health Care Agent Care Teams Cork Insulation Installer Relationship Specialty Start Date End Date Rj Shepherd MD [address] [address] PCP - General Internal Medicine 07/23/24 Angel [place] MD [address] [address] Surgeon Cardiothoracic Surgery 01/08/25 Padmaja Louis NP [address] [facility] [address] [place] [address] Nurse Practitioner Cardiovascular Disease 01/08/25
--- OUTSIDE RECORDS SUMMARY | 2025-01-18 14:03 | XMS_ITS | Encounter Summary ---
Author Organization [facility] Healthcare Address [address] [place] [address] Care Team Providers Care Motor Vehicle Parts Interpreter Name Role Phone Rj Shepherd MD Primary Care Provider + Angel [place] MD Unavailable [phone] Padmaja Louis NP Unavailable [phone] Encounter Details Date Type Department Care Team (Late st Contact Info) Description 01/16/2025 Telephone [facility] Medical Group Cardiology [address] [place] [address] Jeffery Iverson MD [address] [address] Social History Tobacco Use Types Packs/Day Years Used Date Smoking Tobacco: Former Cigarettes Q uit: 1995 Passive Smoke Exposure: Past Smokeless Tobacco: Never AUDIT-C Answer Date Recorded Q1: How often [...] on file Legal Sex 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 She appreciated the callback and information. 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 Wants to know who is going to be removing thestitches and when. Contact: documented in this encounter Plan of Treatment Not on file documented as of this encounter Visit Diagnoses Not on filedocumented in this encounter Care Teams Motor Vehicle Parts Interpreter Relationship Specialty Start Date End Date Rj Shepherd MD [address] [place] [address] PCP - General Internal Medicine 07/23/24 Angel Gonzalez MD [address] [facility] [place] [address] Surgeon Cardiothoracic Surgery 01/08/25 Padmaja Louis NP [address] [address] Nurse Practitioner Cardiovascular Disease 01/08/25 documented as of this encounter
--- OUTSIDE RECORDS SUMMARY | 2025-01-18 14:04 | XMS_ITS | Clinical Summary ---
Author [place] [facility] [place] [address] [facility] [address] [place] [address] Care Team Providers Care Set Illustrator Name Role Phone Rj Shepherd MD Primary Care Provider + Angel Gonzalez MD Unavailable [phone] Padmaja Louis NP Unavailable Allergies No known active allergies Medications Eliquis 5 mg tabletIndication s:atrial fibrillation Take 1 [...] Diagnosed Date Coronary artery disease (CAD) excluded 5 Coronary artery disease of n ative heart with stable angina pectoris 12/10/2024 Arthritis 12/10/2024 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 12/04/2024 Mixed hyperlipidemia 12/04/2024 Heart failure with reduced ejection fraction Paroxysmal atrial fibrillation 08/09/2024 Primary hypertension 08/09/2024 Chronic anticoagulation 08/09/2024 Panlobular emphysema 08/05/2024 Encounters Date Type Department Care Team Description 01/16/2025 Telephone [facility] Cardiology [address] [place] [address] Gustavo Iverson MD 12/30/2024 8:05 AM CDT Anesthesia Event [facility] [address] [place] [address] Candelaria Resendez DO Eldin, Ali S., MD 12/30/2024 8:00 AM CDT - 12/30/2024 2:00 PM CDT Surgery [facility] [address] [place] [address] Angel Gonzalez MD CABG X3, Encompass Clamp, DAI, LEFT UPPER LOBE WEDGE RESECTION OF BLEB/360min 12/30/2024 7:15 AM CDT Ancillary Procedure [facility] [address] [place] [address] 12/30/2024 6:05 AM CDT - 01/08/2025 4:09 PM CDT Hospital Encounter [address] [address] Angel Gonzalez MD Coronary artery disease (CAD) excluded (Primary Dx); 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, unspecified vessel or lesion type Discharge Disposition: Discharge to home, home health skilled care 12/24/2024 9:41 AM CDT - 12/24/2024 11:59 PM CDT Hospital Encounter [facility] [address] [place] [address] Coronary artery disease involving barrow coronary artery 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 Discharge Disposition: Discharge to home or self care 12/18/2024 11:25 AM CDT - 12/18/2024 11:59 PM CDT Hospital Encounter [facility] [address] [place] [address] Discharge Disposition: Discharge to home or self care 12/18/2024 10:45 AM CDT Pre-Admission Testing [facility] Pre [facility]est[facility] Testing [address] [place] [address] 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, unspecified vessel or lesion type; Shortness of breath 12/18/2024 9:40 AM CDT - 12/18/2024 11:59 PM CDT Hospital Encounter [facility] [address] [place] [address] Coronary artery disease involving barrow coronary artery 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; Other chest pain Discharge Disposition: Discharge to home or self care 12/18/2024 9:11 AM CDT - 12/18/2024 11:59 PM CDT Hospital Encounter [facility] [address] [place] [address] Coronary artery disease involving barrow coronary artery 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 Discharge Disposition: Discharge to home or self care 12/10/2024 2:00 PM CDT Office Visit [facility] Surgery [address] [place] [address] [address] [place] [phone] Angel Gonzalez MD Coronary artery disease involving barrow coronary artery 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 (Primary Dx); Heart failure with reduced ejection fraction (HCC); Coronary artery disease involving barrow coronary artery of barrow heart, unspecified whether angina present 12/10/2024 Orders Only [facility] [address] [place] [address] [address] [place] [address] Angel Gonzalez MD Coronary artery disease involving barrow coronary artery 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 (Primary Dx); Other chest pain 12/10/2024 Orders Only [facility] Surgery [address] [place] [address] [address] [place] [phone] Angel Gonzalez MD Coronary artery disease involving barrow coronary artery 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 (Primary Dx) 12/04/2024 11:15 AM CDT Office Visit [facility] Cardiology at [address] [place] [phone] Gustavo Iverson MD Coronary artery disease involving barrow coronary artery 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 (Primary Dx); Heart failure with reduced ejection fraction (HCC); Primary hypertension; Paroxysmal atrial fibrillation (HCC); Mixed hyperlipidemia 11/26/2024 Orders Only [facility] Cardiology [address] [place] [address] [address] [place] [address] Gustavo Iverson MD 11/19/2024 Orders Only [facility] [place] Information Management [address] [place] [address] Gustavo Iverson MD 11/07/2024 9:15 AM CDT Ancillary Procedure [facility] Cardiology [address] [place] [address] [place] [phone] Heart failure with reduced ejection fraction (HCC) 11/07/2024 Telephone [facility] Cardiology [address] [place] [address] [place] [phone] Gustavo Iverson MD 11/07/2024 Results Follow-Up [facility] Cardiology [address] [place] [address] [place] [phone] Gustavo Iverson MD Transthoracic Echo (TTE) Complete W Doppler/CF from Last 3 Months Surgical History Surgery Date Site/Laterality Comments EYE SURGERY Bilateral cataract CARDIAC CATHETERIZATION 10/26/2024 - 11/25/2024 Medical History Medical History Date Comments Atrial fibrillation (HCC) Hypertension Coronary artery disease Hyperlipidemia Arthritis Emphysema of lung (HCC) Fatigue SOBOE (shortness of breath on exertion) Cataract Family History Relation Name Status Comments Father Mother Social History Tobacco Use Types Packs/Day Years [...] on file 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 Gender Identity Not on file Sexual Orientation Not on file Obstetrics History Last Filed Vital Signs Vital Sign Reading [...] 01/03/2025 3:14 PM CDT Plan of Treatment Health Maintenance Due Date Last Done Comments Depression Screening 1945 Hepatitis C Screening 1945 Hepatitis B Screening 1964 Zoster Vaccine (1 of 2) 1996 Well Visit 65+ 2011 Covid-19 Vaccine (6 2023-2 5 season) 2024 06/18/2024, 06/09/2023, 03/21/2022, Additional history exists Fall Risk Assessment 01/08/2026 01/08/2025 DTaP/Tdap/Td Vaccine (2 - Td or Tdap) 04/07/2026 04/07/2016, 08/28/2003 Pneumococcal vaccine 65+ Completed 07/19/2017, 08/2013 Influenza Vaccine Completed 06/18/2024, , 07/07/2022, Additional history exists Medical Devices Implanted Type Area Wheelabrator Operator Device Identifier Shelf Expiration Date Model / Serial / Lot Atricure Clip Closure Exclusion System Preloaded Standard Left Atrial Appendage Atriclip 40mm [id number] - [id number] Implanted:Qty: 1 on 12/30/2024 by Angel Gonzalez MD at [facility] Clip Left: Atrial Appendage Atricure 10/26/2026 [id number] / [id number] / [id number] Procedures Procedure Name Priority Date/Time Associated Diagnosis [...] 4:59 PM CDT 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, unspecified vessel [...] 10:47 AM CDT 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, unspecified vessel [...] LINE PLACEMENT Routine 12/30/2024 9:12 AM CDT [place] AN ELECTIVE ENDOTRACHEAL AIRWAY Routine 12/30/2024 9:11 AM CDT POC BLOOD GAS AND CHEMISTRIES, ARTERIAL Routine 12/30/2024 8:54 AM CDT POCT ACTIVATED CLOTTING TIME, HIGH RANGE Routine 12/30/2024 8:51 AM CDT CORONARY ARTERY BYPASS GRAFT - INTERNAL MAMMARY ARTERY 12/30/2024 8:04 AM CDT 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, unspecified vessel [...] 10:23 AM CDT Coronary artery disease involving barrow coronary artery 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 US VEIN MAPPING DUPLEX LOWER EXTREMITY BILATERAL Schedule Routine, Read Routine (OP Routine) 12/18/2024 1:30 PM CDT Coronary artery disease involving barrow coronary artery 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 Other chest pain EGFR Routine 12/18/2024 12:06 PM CDT 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, unspecified vessel or lesion type BASIC METABOLIC PANEL Routine 12/18/2024 12:06 PM CDT 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, unspecified vessel or lesion type PROTIME-INR Routine 12/18/2024 12:05 PM CDT 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, unspecified vessel or lesion type APTT Routine 12/18/2024 12:05 PM CDT 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, unspecified vessel or lesion type Shortness of breath CBC WITHOUT DIFFERENTIAL Routine 12/18/2024 12:05 PM CDT 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, unspecified vessel or lesion type TYPE AND SCREEN Routine 12/18/2024 11:54 AM CDT 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, unspecified vessel or lesion type URINALYSIS AND REFLEX TO MICROSCOPIC AND CULTURE Routine 12/18/2024 11:54 AM CDT 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, unspecified vessel or lesion type ECG 12-LEAD Routine 12/18/2024 11:49 AM CDT 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, unspecified vessel or lesion type XR CHEST PA LATERAL 2 VIEWS Schedule Routine, Read Routine (OP Routine) 12/18/2024 11:35 AM CDT 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 The tip of a retracted Manchester-Maryanne catheter is in the superior vena cava. [...] active infiltrate. The tip of a retracted Manchester-Maryanne catheter is in the superior vena cava. IMPRESSION: No failure. Electronically signed by: Sangeeta Harmon M.D. us Jessica Kimble FISH BUTCHER IMG XR PROCEDURES Final Re sult * POCT glucose (01/08/2025 7:49 AM CDT) Glucose, POC 132 70 - 199 mg/dL POC Performer [id number] ARON BHAT Blood 01/08/2025 7:49 AM CDT 01/08/2025 7:49 AM CDT Angel Gonzalez MD LAB POCT ORDERABLES - DEVICE Final Result Performing Organization Address [facility] de Phone Number ARON BHAT [address] Department [place] [address] * eGFR (01/08/2025 5:36 AM CDT) eGFR [...] 01/08/2025 5:53 AM CDT us Maureen Martinez FISH BUTCHER LAB BLOOD ORDERABLES Fin al Result Performing Organization Address [facility] de Phone Number ARON BHAT [address] Department [place] [address] * POCT glucose (01/08/2025 5:36 AM CDT) Glucose, POC 163 70 - 199 mg/dL POC Performer [id number] ARON Blood 01/08/2025 5:36 AM CDT 01/08/2025 5:36 AM CDT us Angel Gonzalez MD LAB POCT ORDERABLES - DEVICE Final Result ARON BHAT [address] [address] Department [place] [address] * (ABNORMAL) CBC without differential (01/08/2025 5:36 AM CDT) WBC 4.62 3.80 - 9.90 K/cumm Hgb 9.3(L) 13.0 - 17.5 g/dL [facility] CH Hct 28.7(L) 38.9 - 50.3 % [facility] Plt 125(L) 150 - 400 K/cumm [facility] CH MPV 10.9 9.1 - 12.3 fL [facility] RBC 3.15(L) 4.30 - 5.80 M/cumm [facility] MCV 91.1 81.3 - 96.4 fL [facility] CH MCH 29.5 27.1 - 33.3 pg [facility] MCHC 32.4 32.3 - 35.7 g/dL [facility] CH RDW CV 14.1 11.1 - 14.9 % [facility] CH RDW SD 46.5 35.7 - 48.1 fL [facility] NRBC abs 0.00 0.00 - 0.01 K/cumm [facility] Blood 01/08/2025 5:36 AM CDT 01/08/2025 5:54 AM CDT us Maureen Martinez FISH BUTCHER LAB BLOOD ORDERABLES [facility] al Result ARON BHAT [address] [address] Department [place] [address] * (ABNORMAL) Renal function panel (01/08/2025 5:36 AM CDT) Sodium 137 135 - 145 mmol/L Potassium, pl 3.8 3.3 - 4.9 mmol/L [facility] CH Chloride 98 97 - 110 mmol/L [facility] CH CO2 28 22 - 32 mmol/L [facility] CH Anion gap 11 2 - 15 mmol/L [facility] CH BUN 33(H) 6 - 25 mg/dL C[facility] Creatinine 1.17 0.80 - 1.30 mg/dL [facility] CH Comment:Icteric sample, test results may be affected. Glucose 153 70 - 199 mg/dL [facility] Comment: Interpretive Data Fasting glucose >/= 126 [...] 2022. Calcium 8.6 8.5 - 10.3 mg/dL [facility] Phosphorus, pl 2.8 2.3 - 4.5 mg/dL [facility] Albumin 3.2(L) 3.5 - 5.0 g/dL [facility] Blood 01/08/2025 5:36 AM CDT 01/08/2025 5:53 AM CDT us Maureen Martinez NP LAB BLOOD ORDERABLES Fin al Result Performing Organization Address City/[facility]/ZIP Co de Phone Number ARON [address] [place] [place] [address] * POCT glucose (01/07/2025 11:58 PM CDT) Glucose, POC 139 70 - 199 mg/dL POC Performer [id number] [facility] Blood 01/07/2025 11:5 8 PM CDT 01/07/2025 11:58 PM CDT Angel Gonzalez MD LAB POCT ORDERABLES - DEVICE Final Result [facility] [address] [address] [place] [address] * POCT glucose (01/07/2025 8:43 PM CDT) Glucose, POC 167 70 - 199 mg/dL POC Performer [id number] [facility] Blood 01/07/2025 8:43 PM CDT 01/07/2025 8:43 PM CDT Angel Gonzalez MD LAB POCT ORDERABLES - DEVICE Final Result Performing Organization Address [facility] Co de Phone Number ARON BHAT [address] [address] [facility] [place] [address] * POCT glucose (01/07/2025 5:14 PM CDT) Glucose, POC 168 70 - 199 mg/dL POC Performer [id number] [facility] Blood 01/07/2025 5:14 PM CDT 01/07/2025 5:14 PM CDT Angel Gonzalez MD LAB POCT ORDERABLES - DEVICE Final Result Performing Organization Address [facility] de Phone Number ARON BHAT [address] [address] [facility] [place] [address] * POCT glucose (01/07/2025 12:27 PM CDT) Glucose, POC 127 70 - 199 mg/dL POC Performer [id number] [facility] Blood 01/07/2025 12:2 7 PM CDT 01/07/2025 12:27 PM CDT Angel Gonzalez MD LAB POCT ORDERABLES - DEVICE Final Result Performing Organization Address [facility] de Phone Number ARON [address] [place] [address] * POCT glucose (01/07/2025 7:38 AM CDT) Glucose, POC 150 70 - 199 mg/dL POC Performer [id number] [facility] Blood 01/07/2025 7:38 AM CDT 01/07/2025 7:38 AM CDT us Angel Gonzalez MD LAB POCT ORDERABLES - DEVICE Final Result ARON BHAT [address] Department [place] [address] * XR Chest 1 View - Portable [...] consolidation. The distal tip of the retracted Manchester-Maryanne catheter is in the distal superior vena [...] consolidation. The distal tip of the retracted Manchester-Maryanne catheter is in the distal superior vena cava. IMPRESSION: Findings as described above. Electronically signed by: Sangeeta Harmon M.D. us Maureen Martinez FISH BUTCHER IMG XR PROCEDURES Final Result * (ABNORMAL) [...] CDT 01/07/2025 2:28 AM CDT Maureen Martinez FISH BUTCHER LAB BLOOD ORDERABLES Fin al Result Performing Organization Address [facility]/ZIP Co de Phone Number ARON HOME [address] [address] [place] [address] * aPTT (01/07/2025 2:28 AM CDT) aPTT 29 28 - 38 sec Comment: Interpretive Data Heparin therapeutic range: 66.0 - 100.0 seconds. Range based on correlation with therapeutic heparin activity range of 0.3 - 0.7 Units/mL. Current interpretive data was last revised on 2023. Blood 01/07/2025 2:28 AM CDT 01/07/2025 2:28 AM CDT Jessica Kimble FISH BUTCHER LAB BLOOD ORDERABLES Final Result Performing Organization Address City/[facility]/[place] [address] [address] [employer] [place], [place] [id number] * Protime-INR (01/07/2025 2:28 AM CDT) PT 12.2 9.7 - 13.0 sec INR 1.13 0.90 - 1.20 ARON BHAT Comment: Interpretive data Oral anticoagulant therapeutic ranges: Venous thromboembolism prophylaxis or treatment: 2.0-3.0 CARDIOLOGY Standard range: 2.0-3.0 High-intensity range: 2.5-3.5 Refer to indication-specific guidelines for appropriate target ranges for prosthetic heart valve replacement. Current interpretive data was last revised on 2019. Blood 01/07/2025 2:28 AM CDT 01/07/2025 2:28 AM CDT Jessica Kimble FISH BUTCHER LAB BLOOD ORDERABLES Final Result Performing Organization Address [facility] de Phone Number ARON [address] [address] [facility] [place] [address] * Phosphorus (01/07/2025 2:28 AM CDT) Pathologist [facility] Phosphorus, pl 2.9 2.3 - 4.5 mg/dL Blood 01/07/2025 2:28 AM CDT 01/07/2025 2:28 AM CDT Maureen Martinez FISH BUTCHER LAB BLOOD ORDERABLES Fin al Result Performing Organization Address [facility] de Phone Number LETIBERTO [address] [place] [address] * (ABNORMAL) Bilirubin, direct (01/07/2025 2:28 AM CDT) Bilirubin, direct 0.8(H) 0.1 - 0.3 mg/dL Comment:Hemolysis present. R esults may be affected. Blood 01/07/2025 2:28 AM CDT 01/07/2025 2:28 AM CDT Maureen Martinez FISH BUTCHER LAB BLOOD ORDERABLES Fin al Result Performing Organization Address [facility] Co de Phone Number ARON [address] Department [place] [address] * (ABNORMAL) Comprehensive metabolic panel (01/07/2025 2:28 AM CDT) Sodium 135 135 - 145 mmol/L Potassium, pl 3.9 3.3 - 4.9 mmol/L [facility] Chloride 95(L) 97 - 110 mmol/L [facility] CH CO2 30 22 - 32 mmol/L [facility] Anion gap 10 2 - 15 mmol/L [facility] CH BUN 46(H) 6 - 25 mg/dL [facility] Creatinine 1.31(H) 0.80 - 1.30 mg/dL [facility] CH Comment:Icteric [...] LAB BLOOD ORDERABLES Fin al Result ARON [address] Department [place] [address] * (ABNORMAL) CBC without differential (01/07/2025 2:27 AM CDT) WBC 5.90 3.80 - 9.90 K/cumm Hgb 10.2(L) 13.0 - 17.5 g/dL [facility] Hct 30.2(L) 38.9 - 50.3 % [facility] Plt 117(L) 150 - 400 K/cumm [facility] MPV 10.5 9.1 - 12.3 fL [facility] RBC 3.44(L) 4.30 - 5.80 M/cumm [facility] MCV 87.8 81.3 - 96.4 fL [facility] MCH 29.7 27.1 - 33.3 pg [facility] MCHC 33.8 32.3 - 35.7 g/dL [facility] CH RDW CV 14.1 11.1 - 14.9 % [facility] RDW SD 45.0 35.7 - 48.1 fL [facility] NRBC abs 0.00 0.00 - 0.01 K/cumm [facility] Blood 01/07/2025 2:27 AM CDT 01/07/2025 2:27 AM CDT us Maureen Martinez NP LAB BLOOD ORDERABLES Fin al Result Performing Organization Address [facility] Co de Phone Number ARON HOME [address] [address] [facility] [place] [address] * POCT glucose (01/06/2025 9:23 PM CDT) Pathologist [facility] Glucose, POC 167 70 - 199 mg/dL POC Performer [id number] [facility] Blood 01/06/2025 9:23 PM CDT 01/06/2025 9:23 PM CDT Angel Gonzalez MD LAB POCT ORDERABLES - DEVICE Final Result Performing Organization Address City/[facility] Co de Phone Number ARON BHAT [address] Department [place] [address] * POCT glucose (01/06/2025 5:43 PM CDT) Glucose, POC 192 70 - 199 mg/dL POC Performer [id number] [facility] CH Blood 01/06/2025 5:43 PM CDT 01/06/2025 5:43 PM CDT Angel Gonzalez MD LAB POCT ORDERABLES - DEVICE Final Result Performing Organization Address [facility] Co de Phone Number ARON BHAT [address] [address] [place] [address] * POCT glucose (01/06/2025 12:16 PM CDT) Glucose, POC 139 70 - 199 mg/dL POC Performer [id number] [facility] Blood 01/06/2025 12:1 6 PM CDT 01/06/2025 12:16 PM CDT Angel Gonzalez MD LAB POCT ORDERABLES - DEVICE Final Result Performing Organization Address [facility] Co de Phone Number ARON BHAT [address] [address] [facility] [place] [address] * POCT glucose (01/06/2025 7:45 AM CDT) Glucose, POC 151 70 - 199 mg/dL POC Performer [id number] [facility] Blood 01/06/2025 7:45 AM CDT 01/06/2025 7:45 AM CDT Angel Gonzalez MD LAB POCT ORDERABLES - DEVICE Final Result Performing Organization Address [facility] Co de Phone Number ARON BHAT [address] [address] [place] [address] * (ABNORMAL) eGFR (01/06/2025 6:16 AM CDT) [...] NP LAB BLOOD ORDERABLES Fin al Result [facility] [address] [address] Department [place] [address] * (ABNORMAL) CBC without differential (01/06/2025 6:16 AM CDT) Pathologist [facility] WBC 7.22 3.80 - 9.90 K/cumm Hgb 10.6(L) 13.0 - 17.5 g/dL [facility] Hct 31.7(L) 38.9 - 50.3 % [facility] Plt 106(L) 150 - 400 K/cumm [facility] MPV 10.9 9.1 - 12.3 fL [facility] RBC 3.58(L) 4.30 - 5.80 M/cumm [facility] MCV 88.5 81.3 - 96.4 fL [facility] MCH 29.6 27.1 - 33.3 pg [facility] MCHC 33.4 32.3 - 35.7 g/dL [facility] RDW CV 14.2 11.1 - 14.9 % [facility] CH RDW SD 45.8 35.7 - 48.1 fL [facility] NRBC abs 0.02(H) 0.00 - 0.01 K/cumm [facility] Blood 01/06/2025 6:16 AM CDT 01/06/2025 6:16 AM CDT us Maureen Martinez FISH BUTCHER LAB BLOOD ORDERABLES [facility] al Result [facility] [address] Department [place] [address] * (ABNORMAL) Renal function panel (01/06/2025 6:16 AM CDT) Sodium 134(L) 135 - 145 mmol/L Potassium, pl 3.4 3.3 - 4.9 mmol/L [facility] Chloride 94(L) 97 - 110 mmol/L [facility] CO2 30 22 - 32 mmol/L [facility] Anion gap 10 2 - 15 mmol/L [facility] BUN 47(H) 6 - 25 mg/dL [facility] Creatinine 1.36(H) 0.80 - 1.30 mg/dL [facility] Comment:Icteric sample, test results may be affected. Glucose 149 70 - 199 mg/dL [facility] Comment: Interpretive Data Fasting glucose >/= 126 [...] 2022. Calcium 8.9 8.5 - 10.3 mg/dL [facility] Phosphorus, pl 3.4 2.3 - 4.5 mg/dL [facility] Albumin 3.5 3.5 - 5.0 g/dL [facility] Blood 01/06/2025 6:16 AM CDT 01/06/2025 6:16 AM CDT Maureen Martinez FISH BUTCHER LAB BLOOD ORDERABLES Fin al Result ARON [address] Department [place] [address] * XR Chest 1 View - Portable [...] atelectasis. Electronically signed by: Josh Renteria M.D. Maureen Martinez FISH BUTCHER IMG XR PROCEDURES Final Result * POCT glucose (01/05/2025 9:44 PM CDT) Glucose, POC 169 70 - 199 mg/dL POC Performer [id number] CERNER CH Blood 01/05/2025 9:44 PM CDT 01/05/2025 9:44 PM CDT Angel Gonzalez MD LAB POCT ORDERABLES - DEVICE Final Result Performing Organization Address [facility] Co de Phone Number ARON BHAT [address] [address] [facility] [employer] [place], [place] [id number] * POCT glucose (01/05/2025 4:58 PM CDT) Glucose, POC 148 70 - 199 mg/dL POC Performer [id number] CERNER CH Blood 01/05/2025 4:58 PM CDT 01/05/2025 4:58 PM CDT Angel Gonzalez MD LAB POCT ORDERABLES - DEVICE Final Result Performing Organization Address [facility] de Phone Number ARON BHAT [address] [address] [facility] [place] [address] * POCT glucose (01/05/2025 12:25 PM CDT) Glucose, POC 109 70 - 199 mg/dL POC Performer [id number] [facility] Blood 01/05/2025 12:2 5 PM CDT 01/05/2025 12:25 PM CDT Angel Gonzalez MD LAB POCT ORDERABLES - DEVICE Final Result Performing Organization Address [facility] de Phone Number ARON BHAT [address] [address] [facility] [place] [address] * ECG 12 lead (01/05/2025 12:21 PM CDT) 01/05/2025 12:2 1 PM CDT Narrative [facility] - 01/05/2025 1:36 PM CDT Vent Rate: 82 bpm RR Interval: 731 msec [place] Interval: 218 msec QRS Duration: 97 msec QT Interval: 423 msec QTC Interval: 461 msec P-R-T Sterling: 51 - -15 - 88 degrees IMPRESSION: SINUS RHYTHM WITH FIRST DEGREE AV BLOCK POSSIBLE INFERIOR MYOCARDIAL INFARCTION , PROBABLY OLD ST-depression in V2, V3, consider ischemia ABNORMAL ECG Electronically Signed By: Dr. Emiliano Cuello [facility] us Brianna Arreola FISH BUTCHER ECG ORDERABLES Final Res ult Performing Organization Address City/[facility] Co de Phone Number [facility] * POCT glucose (01/05/2025 7:55 AM CDT) Glucose, POC 90 70 - 199 mg/dL POC Performer [id number] ARON Blood 01/05/2025 7:55 AM CDT 01/05/2025 7:55 AM CDT us Angel Gonzalez MD LAB POCT ORDERABLES - DEVICE Final Result Performing Organization Address City/[facility] Co de Phone Number ARON [address] [address] Department [place] [address] * XR Chest 1 View - Portable [...] atelectasis. Electronically signed by: Talisha Duggan M.D. us Maureen Martinez FISH BUTCHER IMG XR PROCEDURES Final Result * POCT glucose (01/05/2025 5:37 AM CDT) Glucose, POC 106 70 - 199 mg/dL POC Performer [id number] ARON BHAT Blood 01/05/2025 5:37 AM CDT 01/05/2025 5:37 AM CDT us Angel Gonzalez MD LAB POCT ORDERABLES - DEVICE Final Result ARON [address] [address] Department [place] [address] * (ABNORMAL) eGFR (01/05/2025 5:32 [...] 5:32 AM CDT 01/05/2025 6:34 AM CDT Maureen Martinez FISH BUTCHER LAB BLOOD ORDERABLES Fin al Result Performing Organization Address City/[facility]/ZIP Co de Phone Number ARON [address] [address] [place] [address] * (ABNORMAL) CBC without differential (01/05/2025 5:32 AM CDT) WBC 5.52 3.80 - 9.90 K/cumm Hgb 9.7(L) 13.0 - 17.5 g/dL [facility] Hct 29.9(L) 38.9 - 50.3 % [facility] CH Plt 90(L) 150 - 400 K/cumm [facility] MPV 11.4 9.1 - 12.3 fL [facility] RBC 3.33(L) 4.30 - 5.80 M/cumm [facility] MCV 89.8 81.3 - 96.4 fL CERNER MCH 29.1 27.1 - 33.3 pg CERNER MCHC 32.4 32.3 - 35.7 g/dL CERNER CH RDW CV 14.1 11.1 - 14.9 % CERNER CH RDW SD 45.7 35.7 - 48.1 fL [facility] NRBC abs 0.00 0.00 - 0.01 K/cumm C[facility]ER CH Blood 01/05/2025 5:32 AM CDT 01/05/2025 5:46 AM CDT Maureen Martinez FISH BUTCHER LAB BLOOD ORDERABLES Fin al Result Performing Organization Address City/[facility]/ZIP Co de Phone Number LETIBERTO BHAT [address] [address] [place] [address] * Phosphorus (01/05/2025 5:32 AM CDT) Phosphorus, pl 3.5 2.3 - 4.5 mg/dL Blood 01/05/2025 5:32 AM CDT 01/05/2025 5:47 AM CDT Maureen Martinez FISH BUTCHER LAB BLOOD ORDERABLES Fin al Result Performing Organization Address City/[facility] Co de Phone Number ARON HOME [address] [address] [place] [address] * Magnesium (01/05/2025 5:32 AM CDT) Pathologist [facility] Magnesium 2.0 1.4 - 2.5 mg/dL Blood 01/05/2025 5:32 AM CDT 01/05/2025 5:46 AM CDT Maueren Martinez FISH BUTCHER LAB BLOOD ORDERABLES Fin al Result Performing Organization Address [facility] de Phone Number ARON [address] [address] [place] [address] * (ABNORMAL) Bilirubin, direct (01/05/2025 5:32 AM CDT) Pathologist [facility] Bilirubin, direct 1.1(H) 0.1 - 0.3 mg/dL Blood 01/05/2025 5:32 AM CDT 01/05/2025 5:47 AM CDT Maureen Martinez FISH BUTCHER LAB BLOOD ORDERABLES Fin al Result Performing Organization Address City/[facility] Co de Phone Number ARON [address] [address] [facility] [place] [address] * (ABNORMAL) Comprehensive metabolic panel (01/05/2025 5:32 AM CDT) Sodium 138 135 - 145 mmol/L Potassium, pl 3.2(L) 3.3 - 4.9 mmol/L [facility] CH Chloride 97 97 - 110 mmol/L C[facility] CH CO2 31 22 - 32 mmol/L C[facility] CH Anion gap 10 2 - 15 mmol/L C[facility] CH BUN 43(H) 6 - 25 mg/dL C[facility] CH Creatinine 1.35(H) 0.80 - 1.30 mg/dL CERNER CH Comment:Icteric sample, test results may be affected. Glucose 109 70 - 199 mg/dL C[facility]ER CH Comment: [...] Calcium 8.7 8.5 - 10.3 mg/dL C[facility] CH Bilirubin, [...] 01/05/2025 5:47 AM CDT us Maureen Martinez NP LAB BLOOD ORDERABLES Fin al Result ARON BHAT [address] [address] Department [place] [address] * POCT glucose (01/05/2025 2:13 AM CDT) [facility] Signature Glucose, POC 104 70 - 199 mg/dL POC Performer [id number] CERNER CH Blood 01/05/2025 2:13 AM CDT 01/05/2025 2:13 AM CDT Angel Gonzalez MD LAB POCT ORDERABLES - DEVICE Final Result Performing Organization Address [facility] Co de Phone Number ARON BHAT [address] [address] [facility] [address] [place], [place] [id number] * POCT glucose (01/04/2025 8:19 PM CDT) Glucose, POC 153 70 - 199 mg/dL POC Performer [id number] CERNER CH Blood 01/04/2025 8:19 PM CDT 01/04/2025 8:19 PM CDT Angel Gonzalez MD LAB POCT ORDERABLES - DEVICE Final Result Performing Organization Address [facility] de Phone Number ARON BHAT [address] [address] [facility] [place] [address] * POCT glucose (01/04/2025 5:13 PM CDT) Glucose, POC 96 70 - 199 mg/dL POC Performer [id number] CERNER CH Blood 01/04/2025 5:13 PM CDT 01/04/2025 5:13 PM CDT Angel Gonzalez MD LAB POCT ORDERABLES - DEVICE Final Result Performing Organization Address [facility] de Phone Number ARON BHAT [address] [address] [facility] [place] [address] * POCT glucose (01/04/2025 11:29 AM CDT) Glucose, POC 110 70 - 199 mg/dL POC Performer [id number] CERNER CH Blood 01/04/2025 11:2 9 AM CDT 01/04/2025 11:29 AM CDT Angel Gonzalez MD LAB POCT ORDERABLES - DEVICE Final Result Performing Organization Address City/[facility]/ZIP Co de Phone Number ARON BHAT [address] [address] [place] [address] * POCT glucose (01/04/2025 7:35 AM CDT) [facility] Signature Glucose, POC 118 70 - 199 mg/dL POC Performer [id number] [facility] Blood 01/04/2025 7:35 AM CDT 01/04/2025 7:35 AM CDT Angel Gonzalez MD LAB POCT ORDERABLES - DEVICE Final Result Performing Organization Address [facility] Co de Phone Number ARON BHAT [address] [address] Department [place] [address] * Critical Care (01/04/2025 7:24 AM CDT) Narrative Akanksha Vaca, - 01/04/2025 7:24 AM CDT Akanksha Vaca [...] plan with the patient's team and other medical/consultant intern staff. This time was in addition to and separate from care provided by other practitioners on this day of service. I spent time reviewing and interpreting data from bedside monitors, laboratory results, and imaging, I spent time discussing the management of this critically ill patient with consultants and the medical staff and I spent time documenting in the medical record us Venus Iqbal FISH BUTCHER IN CLINIC/BEDSIDE ORDERABLES Final Result * XR [...] consolidation. The distal tip of the retracted Manchester-Maryanne catheter is at the cavoatrial junction. Interval [...] consolidation. The distal tip of the retracted Manchester-Maryanne catheter is at the cavoatrial junction. Interval removal of bilateral thoracostomy tubes. IMPRESSION: Findings as described above. Electronically signed by: Sangeeta Harmon M.D. aMureen Martinez NP IMG XR PROCEDURES Final Result * Calcium, ionized, whole blood (01/04/2025 4:34 AM CDT) Ca, ionized, bld 4.61 4.50 - 5.10 mg/dL Blood 01/04/2025 4:34 AM CDT 01/04/2025 4:37 AM CDT us Maureen Martinez NP LAB BLOOD ORDERABLES Fin al Result Performing Organization Address City/State/[facility] Co de Phone Number ARON BHAT [address] [address] [place] [address] * eGFR (01/04/2025 4:34 AM CDT) eGFR [...] CDT 01/04/2025 4:38 AM CDT Maureen Martinez FISH BUTCHER LAB BLOOD ORDERABLES Fin al Result Performing Organization Address [facility] Co de Phone Number ARON BHAT [address] Department [place] [address] * (ABNORMAL) CBC without differential (01/04/2025 4:34 AM CDT) WBC 5.32 3.80 - 9.90 K/cumm Hgb 10.0(L) 13.0 - 17.5 g/dL [facility] Hct 30.1(L) 38.9 - 50.3 % [facility] Plt 80(L) 150 - 400 K/cumm [facility] MPV 10.8 9.1 - 12.3 fL [facility] RBC 3.38(L) 4.30 - 5.80 M/cumm CERNER [...] CDT 01/04/2025 4:39 AM CDT Maureen Martinez FISH BUTCHER LAB BLOOD ORDERABLES Fin al Result Performing Organization Address City/[facility] Co de Phone Number [facility] [address] [address] [facility] [place] [address] * Magnesium (01/04/2025 4:34 AM CDT) [facility] Magnesium 2.1 1.4 - 2.5 mg/dL Blood 01/04/2025 4:34 AM CDT 01/04/2025 4:38 AM CDT Maureen Martinez FISH BUTCHER LAB BLOOD ORDERABLES Fin al Result Performing Organization Address [facility] de Phone Number [facility] [address] [address] [facility] [place] [address] * (ABNORMAL) Hepatic function panel (01/04/2025 4:34 AM CDT) Bilirubin, total 2.2(H) 0.1 - 1.2 mg/dL Bilirubin, direct 1.2(H) 0.1 - 0.3 mg/dL [facility] Protein, pl 5.3(L) 6.5 - 8.5 g/dL CERNER Albumin 3.1(L) 3.5 - 5.0 g/dL [facility] Alk phos 215(H) 40 - 130 Units/L CERNER CH ALT 50 7 - 55 Units/L C[facility]ER CH AST 65(H) 10 - 50 Units/L C[facility]ER CH Blood 01/04/2025 4:34 AM CDT 01/04/2025 11:48 AM CDT Venus Iqbal FISH BUTCHER LAB BLOOD ORDERABL ES Final Result [facility] [address] Department [place] [address] * (ABNORMAL) Renal function panel (01/04/2025 4:34 [...] Glucose 136 70 - 199 mg/dL CERNER Comment: Interpretive [...] 8.5 8.5 - 10.3 mg/dL CERNER CH Phosphorus, pl 3.0 2.3 - 4.5 mg/dL C[facility] CH Albumin 3.1(L) 3.5 - 5.0 g/dL CERNER Blood 01/04/2025 4:34 AM CDT 01/04/2025 4:38 AM CDT Maureen Martinez FISH BUTCHER LAB BLOOD ORDERABLES Fin al Result Performing Organization Address City/[facility]/ZIP Co de Phone Number ARON BHAT [address] [address] Department [place] [address] * POCT glucose (01/03/2025 7:55 PM CDT) Glucose, POC 131 70 - 199 mg/dL POC Performer [id number] [facility] Blood 01/03/2025 7:55 PM CDT 01/03/2025 7:55 PM CDT us Angel Gonzalez MD LAB POCT ORDERABLES - DEVICE Final Result Performing Organization Address [facility] Co de Phone Number ARON BHAT [address] [address] [place] [address] * Critical Care (01/03/2025 7:51 PM CDT) [...] plan with the patient's team and other medical/consultant intern staff. This time was in addition to [...] 133 70 - 199 mg/dL POC Performer [id number] [facility] Blood 01/03/2025 4:44 PM CDT 01/03/2025 4:44 PM CDT Angel Gonzalez MD LAB POCT ORDERABLES - DEVICE Final Result Performing Organization Address [facility] Co de Phone Number [facility] [address] [address] [place] [address] * Calcium, ionized, whole blood (01/03/2025 2:19 PM CDT) Ca, ionized, bld 4.54 4.50 - 5.10 mg/dL Blood 01/03/2025 2:19 PM CDT 01/03/2025 2:28 PM CDT Angel Gonzalez MD LAB BLOOD ORDERABLES Final R esult Performing Organization Address [facility] de Phone Number [facility] [address] [address] [place] [address] * (ABNORMAL) eGFR (01/03/2025 2:19 PM CDT) eGFR 55(L) >=60 mL/min/1. 73 m2 Comment: [...] 2:19 PM CDT 01/03/2025 2:44 PM CDT Angel Gonzalez MD LAB BLOOD ORDERABLES Final R esult Performing Organization Address City/[facility]/ZIP Co de Phone Number ARON [address] [place] [address] * (ABNORMAL) CBC without differential (01/03/2025 2:19 PM CDT) WBC 6.23 3.80 - 9.90 K/cumm Hgb 11.2(L) 13.0 - 17.5 g/dL [facility] CH Hct 34.5(L) 38.9 - 50.3 % [facility] CH Plt 105(L) 150 - 400 K/cumm [facility] CH MPV 10.7 9.1 - 12.3 fL [facility] CH RBC 3.86(L) 4.30 - 5.80 M/cumm [facility] CH MCV 89.4 81.3 - 96.4 fL CERNER [...] BLOOD ORDERABLES Final R esult ARON BHAT [address] [address] [place] [address] * Magnesium (01/03/2025 2:19 PM CDT) Magnesium 2.1 1.4 - 2.5 mg/dL Blood 01/03/2025 2:19 PM CDT 01/03/2025 2:28 PM CDT Angel Gonzalez MD LAB BLOOD ORDERABLES Final R esult Performing Organization Address City/[facility] Co de Phone Number ARON BHAT [address] [address] [place] [address] * (ABNORMAL) Basic metabolic panel (01/03/2025 2:19 PM CDT) [facility] Sodium 137 135 - 145 mmol/L Potassium, pl 3.6 3.3 - 4.9 mmol/L [facility] Chloride 99 97 - 110 mmol/L [facility] CO2 26 22 - 32 mmol/L [facility] Anion gap 12 2 - 15 mmol/L [facility] BUN 31(H) 6 - 25 mg/dL [facility] Creatinine 1.33(H) 0.80 - 1.30 mg/dL [facility] Comment:Icteric sample, test results may be affected. Glucose 187 70 - 199 mg/dL [facility] Comment: Interpretive Data Fasting glucose >/= 126 [...] 2022. Calcium 9.0 8.5 - 10.3 mg/dL [facility] Blood 01/03/2025 2:19 PM CDT 01/03/2025 2:28 PM CDT Angel Gonzalez MD LAB BLOOD ORDERABLES Final R esult Performing Organization Address [facility] Co de Phone Number ARON BHAT [address] [address] [place] [address] * POCT glucose (01/03/2025 12:28 PM CDT) Glucose, POC 127 70 - 199 mg/dL POC Performer [id number] ARON Blood 01/03/2025 12:2 8 PM CDT 01/03/2025 12:28 PM CDT Angel Gonzalez MD LAB POCT ORDERABLES - DEVICE Final Result Performing Organization Address [facility] Co de Phone Number [facility] [address] [address] [place] [address] * (ABNORMAL) Protime-INR (01/03/2025 11:13 AM CDT) Pathologist [facility] PT 13.2(H) 9.7 - 13.0 sec INR 1.22(H) 0.90 - 1.20 ARON Comment: Interpretive data Oral anticoagulant therapeutic ranges: Venous thromboembolism prophylaxis or treatment: 2.0-3.0 CARDIOLOGY Standard range: 2.0-3.0 High-intensity range: 2.5-3.5 Refer to indication-specific guidelines for appropriate target ranges for prosthetic heart valve replacement. Current interpretive data was last revised on 2019. Blood 01/03/2025 11:1 3 AM CDT 01/03/2025 11:17 AM CDT Venus Iqbal NP LAB BLOOD ORDERABL ES Final Result Performing Organization Address [facility] de Phone Number [facility] [address] [address] [place] [address] * (ABNORMAL) Lactate dehydrogenase (LD) (01/03/2025 11:13 AM CDT) Pathologist [facility] Lactate dehydrogenase (LDH) 316(H) 100 - 250 Units/L Blood 01/03/2025 11:1 3 AM CDT 01/03/2025 11:16 AM CDT Venus Iqbal NP LAB BLOOD ORDERABL ES Final Result Performing Organization Address City/[facility] Co de Phone Number ARON BHAT [address] [address] Department [place] [address] * (ABNORMAL) Haptoglobin (01/03/2025 11:13 AM CDT) Haptoglobin 208(H) 30 - 200 mg/dL Comment:Hemolysis present. R esults may be affected. Blood 01/03/2025 11:1 3 AM CDT 01/03/2025 11:16 AM CDT Venusjustice Johnson Farida MADDEN LAB BLOOD ORDERABL ES Final Result Performing Organization Address [facility] Co de Phone Number ARON BHAT [address] [address] Department [place] [address] * Clinical pathology report (01/03/2025 11:11 AM CDT) Miscellaneous 01/03/2025 11: 11 AM CDT 01/03/2025 1:00 PM CDT Narrative 01/03/2025 2:10 PM CDT EPIC results best viewed via link to PDF [facility] Department of Pathology [address] [place] [id number] Final Report Note to Patients: This [...] the details. Patient Name: DENISE JAMES Address: [facility] [address] [place], [place] [address] Gender: M : 1945 (Age: 79) Service: Cardiothoracic Location: [facility] Hospital #: [id number] Patient Type: [facility] Taken: 01/03/2025 Received: 01/03/2025 Accessioned: 01/03/2025 Physician(s): [...] determined by the Surgical Pathology Department at [facility] as part of an ongoing quality assurance advisor program and in compliance with federally mandated [...] characteristics determined by the Surgical Pathology Department [facility]. It has not been cleared or approved by the U. S. Food and Drug Administration. REPORT IMAGES AND SCANNED DOCUMENTS, IF INCLUDED, ONLY VIEWABLE IN PDF VERSION OF REPORTe o Venus Iqbal NP LAB PATHOLOGY INGE [place]OR Final Result * Critical Care (01/03/2025 8:06 AM CDT) Gayathri Rangel MD - 01/03/2025 8:06 AM CDT Gayathri [...] plan with the ICU team and other medical/consultant intern staff, making frequent assessments and decisions regarding [...] time documenting in the medical record us Venus Iqbal NP IN CLINIC/BEDSIDE ORDERABLES Final Result * POCT glucose (01/03/2025 7:51 AM CDT) [facility] Glucose, POC 135 70 - 199 mg/dL POC Performer [id number] ARON BHAT Blood 01/03/2025 7:51 AM CDT 01/03/2025 7:51 AM CDT us Angel Gonzalez MD LAB POCT ORDERABLES - DEVICE Final Result ARON BHAT [address] [address] [place] [address] * XR Chest 1 View [...] drain in place. The tip of the Manchester-Maraynne catheter is in the undivided main pulmonary [...] drain in place. The tip of the Manchester-Maryanne catheter is in the undivided main pulmonary artery. Ill-defined left lower lobe infiltrate with the remainder of the lungs being clear. Heart not enlarged. Mild degree of vascular congestion. IMPRESSION: Findings as described above. Electronically signed by: Sangeeta Harmon M.D. Maureen Martinez NP IMG XR PROCEDURES Final Result * Calcium, ionized, whole blood (01/03/2025 4:04 AM CDT) Ca, ionized, bld 4.56 4.50 - 5.10 mg/dL Blood 01/03/2025 4:04 AM CDT 01/03/2025 4:19 AM CDT Maureen Martinez NP LAB BLOOD ORDERABLES Fin al Result ARON [address] [address] [place] [address] * (ABNORMAL) eGFR (01/03/2025 4:04 AM CDT) Pathologist [facility] eGFR 57(L) >=60 mL/min/1. 73 m2 Comment: [...] CDT 01/03/2025 4:35 AM CDT Maureen Martinez NP LAB BLOOD ORDERABLES Fin al Result [facility] [address] [address] Department [place] [address] * (ABNORMAL) CBC without differential (01/03/2025 4:04 AM CDT) Pathologist [facility] WBC 4.21 3.80 - 9.90 K/cumm Hgb 9.6(L) 13.0 - 17.5 g/dL [facility] Hct 29.7(L) 38.9 - 50.3 % [facility] Plt 76(L) 150 - 400 K/cumm [facility] MPV 10.8 9.1 - 12.3 fL [facility] RBC 3.30(L) 4.30 - 5.80 M/cumm [facility] MCV 90.0 81.3 - 96.4 fL [facility] CH MCH 29.1 27.1 - 33.3 pg [facility] CH MCHC 32.3 32.3 - 35.7 g/dL [facility] CH RDW CV 15.2(H) 11.1 - 14.9 % [facility] CH RDW SD 50.0(H) 35.7 - 48.1 fL [facility] CH NRBC abs 0.00 0.00 - 0.01 K/cumm [facility] CH Blood 01/03/2025 4:04 AM CDT 01/03/2025 4:22 AM CDT Maureen Martinez FISH BUTCHER LAB BLOOD ORDERABLES Fin al Result Performing Organization Address [facility] Co de Phone Number [facility] [address] [address] [facility] [place] [address] * Phosphorus (01/03/2025 4:04 AM CDT) Phosphorus, pl 2.9 2.3 - 4.5 mg/dL Blood 01/03/2025 4:04 AM CDT 01/03/2025 4:18 AM CDT Maureen Martinez FISH BUTCHER LAB BLOOD ORDERABLES Fin al Result Performing Organization Address [facility] de Phone Number [facility] [address] [address] [facility] [place] [address] * Magnesium (01/03/2025 4:04 AM CDT) Magnesium 2.2 1.4 - 2.5 mg/dL Blood 01/03/2025 4:04 AM CDT 01/03/2025 4:18 AM CDT Maureen Martinez FISH BUTCHER LAB BLOOD ORDERABLES Fin al Result Performing Organization Address [facility] Co de Phone Number [facility] [address] [address] [facility] [place] [address] * (ABNORMAL) Bilirubin, direct (01/03/2025 4:04 AM CDT) Bilirubin, direct 1.6(H) 0.1 - 0.3 mg/dL Blood 01/03/2025 4:04 AM CDT 01/03/2025 4:18 AM CDT us Maureen Martinez FISH BUTCHER LAB BLOOD ORDERABLES Fin al Result [facility] [address] [address] Department [place] [address] * (ABNORMAL) Comprehensive metabolic panel (01/03/2025 4:04 AM CDT) Sodium 141 135 - 145 mmol/L Potassium, pl 3.8 3.3 - 4.9 mmol/L [facility] Chloride 106 97 - 110 mmol/L [facility] CH CO2 26 22 - 32 mmol/L [facility] Anion gap 9 2 - 15 mmol/L [facility] CH BUN 26(H) 6 - 25 mg/dL [facility] CH Creatinine 1.29 0.80 - 1.30 mg/dL [facility] CH Comment:Icteric sample, test results may be affected. Glucose 122 70 - 199 mg/dL [facility]AIL [facility] [facility] Comment: Interpretive Data Fasting glucose >/= 126 [...] Calcium 8.5 8.5 - 10.3 mg/dL CERNER Bilirubin, total 2.4(H) 0.1 - 1.2 mg/dL C[facility] CH Protein, pl 5.5(L) 6.5 - 8.5 g/dL CERNER CH Albumin 3.3(L) 3.5 - 5.0 g/dL CERNER CH Alk phos 172(H) 40 - 130 Units/L C[facility]ER CH ALT 35 7 - 55 Units/L C[facility]ER CH AST 55(H) 10 - 50 Units/L [facility] CH Blood 01/03/2025 4:04 AM CDT 01/03/2025 4:18 AM CDT us Maureen Martinez NP LAB BLOOD ORDERABLES Fin al Result Performing Organization Address [facility]/ZIP Co de Phone Number ARON BHAT [address] [place] [address] * POCT glucose (01/03/2025 4:01 AM CDT) Glucose, POC 118 70 - 199 mg/dL POC Performer [id number] [facility] CH Blood 01/03/2025 4:01 AM CDT 01/03/2025 4:01 AM CDT us Angel Gonzalez MD LAB POCT ORDERABLES - DEVICE Final Result Performing Organization Address [facility] Co de Phone Number ARON BHAT [address] [place] [address] * Critical Care (01/02/2025 8:52 PM CDT) [...] plan with the ICU team and other medical/consultant intern staff, making frequent assessments and decisions regarding [...] 133 70 - 199 mg/dL POC Performer [id number] [facility] Blood 01/02/2025 7:4 6 PM CDT 01/02/2025 7:46 PM CDT Angel Gonzalez MD LAB POCT ORDERABLES - DEVICE Final Result Performing Organization Address [facility] de Phone Number ARON BHAT [address] [facility] [place] [address] * Transfuse RBC (01/02/2025 6:00 PM CDT) Blood Result Bettina Gonzalez MD BLOOD TRANSFUSION ORDERABLES Final Result Performing Organization Address [facility] Co de Phone Number ARON BHAT [address] [address] [facility] [employer] [place], [place] [id number] * POCT glucose (01/02/2025 4:53 PM CDT) Glucose, POC 138 70 - 199 mg/dL POC Performer [id number] [facility] Blood 01/02/2025 4:53 PM CDT 01/02/2025 4:53 PM CDT us Angel Gonzalez MD LAB POCT ORDERABLES - DEVICE Final Result Performing Organization Address [facility] Co de Phone Number ARON [address] [address] [facility] [place] [address] * Calcium, ionized, whole blood (01/02/2025 2:35 PM CDT) Ca, ionized, bld 4.82 4.50 - 5.10 mg/dL Blood 01/02/2025 2:35 PM CDT 01/02/2025 2:49 PM CDT Angel Gonzalez MD LAB BLOOD ORDERABLES Final R esult ARON BHAT [address] [address] [employer] [place], [place] [id number] * (ABNORMAL) eGFR (01/02/2025 2:35 PM CDT) eGFR 53(L) >=60 mL/min/1. 73 m2 [...] 2:35 PM CDT 01/02/2025 2:58 PM CDT Angel Gonzalez MD LAB BLOOD ORDERABLES Final R esult ARON HOME [address] [address] [employer] [place], [place] [id number] * (ABNORMAL) Differential, auto (01/02/2025 2:35 PM CDT) Neutrophil abs 3.37 1.50 - 6.50 K/cumm Imm gran abs 0.01 0.00 - 0.10 K/cumm CERNER Lymphocyte abs 0.35(L) 0.80 - 3.30 K/cumm CERNER Monocyte abs 0.24 0.20 - 0.80 K/cumm CERNER Eosinophil abs 0.01 0.00 - 0.50 K/cumm CERNER Basophil abs 0.00 0.00 - 0.10 K/cumm [facility] Neutrophil pct 84.6 % CERNER Comment: Interpretive Data Percent cell count reference ranges are not reported, since discordance with absolute values may lead to misinterpretation of CBC data. Current Interpretive Data was last revised on 2017. Imm gran pct 0.3 % CERNER Comment: Interpretive Data Percent cell count reference ranges are not reported, since discordance with absolute values may lead to misinterpretation of CBC data. Current Interpretive Data was last revised on 2017. Lymphocyte pct 8.8 % CERNER Comment: Interpretive Data Percent cell count reference ranges are not reported, since discordance with absolute values may lead to misinterpretation of CBC data. Current Interpretive Data was last revised on 2017. Monocyte pct 6.0 % CERNER Comment: Interpretive Data Percent cell count reference ranges are not reported, since discordance with absolute values may lead to misinterpretation of CBC data. Current Interpretive Data was last revised on 2017. Eosinophil pct 0.3 % CERNER Comment: Interpretive Data Percent cell count reference ranges are not reported, since discordance with absolute values may lead to misinterpretation of CBC data. Current Interpretive Data was last revised on 2017. Basophil pct 0.0 % CERNER Comment: Interpretive Data Percent cell count reference ranges are not reported, since discordance with absolute values may lead to misinterpretation of CBC data. Current Interpretive Data was last revised on 2017. Blood 01/02/2025 2:35 PM CDT 01/02/2025 2:51 PM CDT Angel Gonzalez MD LAB BLOOD ORDERABLES Final R esult ARON BHAT [address] [place] [address] * (ABNORMAL) CBC with auto differential (01/02/2025 2:35 PM CDT) WBC 3.98 3.80 - 9.90 K/cumm Hgb 8.9(L) 13.0 - 17.5 g/dL [facility] Hct 27.1(L) 38.9 - 50.3 % [facility] Plt 83(L) 150 - 400 K/cumm [facility] MPV 11.3 9.1 - 12.3 fL [facility] RBC 2.98(L) 4.30 - 5.80 M/cumm [facility] MCV 90.9 81.3 - 96.4 fL [facility] MCH 29.9 27.1 - 33.3 pg [facility] MCHC 32.8 32.3 - 35.7 g/dL [facility] CH RDW CV 14.8 11.1 - 14.9 % [facility] CH RDW SD 49.4(H) 35.7 - 48.1 fL [facility] NRBC abs 0.00 0.00 - 0.01 K/cumm [facility] Blood 01/02/2025 2:35 PM CDT 01/02/2025 2:51 PM CDT Angel Gonzalez MD LAB BLOOD ORDERABLES Final R esult ARON BHAT [address] [place] [address] * Phosphorus (01/02/2025 2:35 PM CDT) Phosphorus, pl 2.5 2.3 - 4.5 mg/dL Blood 01/02/2025 2:35 PM CDT 01/02/2025 2:49 PM CDT us Angel Gonzalez MD LAB BLOOD ORDERABLES Final R esult ARON BHAT [address] [address] [facility] [place] [address] * Magnesium (01/02/2025 2:35 PM CDT) Magnesium 2.1 1.4 - 2.5 mg/dL Blood 01/02/2025 2:35 PM CDT 01/02/2025 2:49 PM CDT Angel Gonzalez MD LAB BLOOD ORDERABLES Final R esult Performing Organization Address [facility] Co de Phone Number ARON BHAT [address] [address] [facility] [place] [address] * (ABNORMAL) Blood gas, arterial [...] ORDERABLES Final R esult Performing Organization Address City/[facility]/ZIP Co de Phone Number ARON BHAT [address] [address] [facility] [place] [address] * (ABNORMAL) Basic metabolic panel (01/02/2025 2:35 PM CDT) Sodium 145 135 - 145 mmol/L Potassium, pl 3.7 3.3 - 4.9 mmol/L [facility] CH Chloride 109 97 - 110 mmol/L [facility] CO2 26 22 - 32 mmol/L [facility] Anion gap 10 2 - 15 mmol/L [facility] BUN 28(H) 6 - 25 mg/dL [facility] Creatinine 1.37(H) 0.80 - 1.30 mg/dL [facility] Comment:Icteric sample, test results may be affected. Glucose 152 70 - 199 mg/dL [facility] Comment: Interpretive Data Fasting glucose >/= 126 [...] 2022. Calcium 8.8 8.5 - 10.3 mg/dL [facility] Blood 01/02/2025 2:35 PM CDT 01/02/2025 2:49 PM CDT Angel Gonzalez MD LAB BLOOD ORDERABLES Final R esult Performing Organization Address City/[facility] Co de Phone Number ARON BHAT [address] [address] [place] [employer] [place] [address] * POCT glucose (01/02/2025 1:18 PM CDT) [facility] Signature Glucose, POC 174 70 - 199 mg/dL POC Performer [id number] [facility] Blood 01/02/2025 1:18 PM CDT 01/02/2025 1:18 PM CDT Angel Gonzalez MD LAB POCT ORDERABLES - DEVICE Final Result Performing Organization Address [facility] Co de Phone Number ARON BHAT [address] [address] [employer] [place], [place] [phone] * (ABNORMAL) POCT glucose (01/02/2025 1:16 PM CDT) Glucose, POC 61(L) 70 - 199 mg/dL POC Performer [id number] CERNER CH Blood 01/02/2025 1:16 PM CDT 01/02/2025 1:16 PM CDT Angel Gonzalez MD LAB POCT ORDERABLES - DEVICE Final Result Performing Organization Address [facility] de Phone Number ARON BHAT [address] [address] [place] [address] * Prepare RBC: 1 Units (01/02/2025 11:36 AM CDT) [facility] Product code [id number] Unit Number [id number] 9-A CERNER CH Product Blood Type BNEG CERNER CH Dispense Status RETURNED [facility] Blood 01/02/2025 11:3 6 AM CDT Narrative [facility] CH - 01/03/2025 12:26 AM CDT 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 (All products are leukoreduced and CMV- safe)- >No Date required:-[id number] LRRBC # of [id number] Reasons:-Other (specify)} Angel Gonzalez MD BLOOD BANK PRODUCT ORDERABLE S Final Result Performing Organization Address [facility] de Phone Number ARON BHAT [address] [place] [address] * Oxyhemoglobin, pulmonary artery (01/02/2025 10:01 AM CDT) Oxyhemoglobin, PA 53.7 % Comment: Interpretive Data No reference range established. Current interpretive data was last revised 2019. Blood 01/02/2025 10:0 1 AM CDT 01/02/2025 10:04 AM CDT Angel Gonzalez MD LAB BLOOD ORDERABLES Final R esult Performing Organization Address City/[facility]/ZIP Co de Phone Number ARON BHAT [address] [address] [place] [address] * POCT glucose (01/02/2025 8:28 AM CDT) Glucose, POC 166 70 - 199 mg/dL POC Performer [id number] ARON Blood 01/02/2025 8:28 AM CDT 01/02/2025 8:28 AM CDT Angel Gonzalez MD LAB POCT ORDERABLES - DEVICE Final Result Performing Organization Address [facility] Co de Phone Number ARON BHAT [address] [address] [place] [address] * Critical Care (01/02/2025 6:54 AM CDT) [...] plan with the ICU team and other medical/consultant intern staff, making frequent assessments and decisions regarding [...] Body, Chest N/A Computed Radiogr aphy 01/02/2025 8:2 3 AM CDT Impressions 01/02/2025 8:23 AM CDT [...] in unchanged position. The tip of the Manchester-Maryanne catheter is in the undivided main pulmonary [...] in unchanged position. The tip of the [place]-Maryanne catheter is in the undivided main pulmonary artery. Left lower lobe infiltrate noted with the remainder of the lungs being clear. Heart not enlarged. No failure. IMPRESSION: No failure Electronically signed by: Sangeeta Harmon M.D. Maureen Martinez FISH [facility]CHER IMG XR PROCEDURES Final Result * POCT glucose (01/02/2025 3:36 AM CDT) [facility] Signature Glucose, POC 152 70 - 199 mg/dL POC Performer [id number] [facility] Blood 01/02/2025 3:36 AM CDT 01/02/2025 3:36 AM CDT us Angel Gonzalez MD LAB POCT ORDERABLES - DEVICE Final Result ARON BHAT [address] [address] [place] [address] * Calcium, ionized, whole blood (01/02/2025 2:14 AM CDT) Ca, ionized, bld 4.78 4.50 - 5.10 mg/dL Blood 01/02/2025 2:14 AM CDT 01/02/2025 2:21 AM CDT Maureen Martinez FISH [facility]CHER LAB BLOOD ORDERABLES Fin al Result Performing Organization Address [facility] Co de Phone Number ARON BHAT [address] [place] [address] * (ABNORMAL) eGFR (01/02/2025 2:14 AM CDT) eGFR 55(L) >=60 mL/min/1. 73 m2 Comment: [...] CDT 01/02/2025 2:24 AM CDT Maureen Martinez [facility]ER LAB BLOOD ORDERABLES Fin al Result Performing Organization Address City/[facility]/ZIP Co de Phone Number ARON BHAT [address] [place] [address] * (ABNORMAL) CBC without differential (01/02/2025 2:14 AM CDT) WBC 3.78(L) 3.80 - 9.90 K/cumm Hgb 8.9(L) 13.0 - 17.5 g/dL C[facility]ER CH Hct 27.0(L) 38.9 - 50.3 % C[facility]ER CH Plt 80(L) 150 - 400 K/cumm C[facility]ER CH MPV 10.7 9.1 - 12.3 fL CERNER CH RBC 2.99(L) 4.30 - 5.80 M/cumm C[facility]ER CH MCV 90.3 81.3 - 96.4 fL CERNER CH MCH 29.8 27.1 - 33.3 pg CERNER MCHC 33.0 32.3 - 35.7 g/dL C[facility]ER CH RDW CV 14.7 11.1 - 14.9 % [facility] CH RDW SD 48.5(H) 35.7 - 48.1 fL C[facility]ER CH NRBC abs 0.00 0.00 - 0.01 K/cumm [facility] CH Blood 01/02/2025 2:14 AM CDT 01/02/2025 2:19 AM CDT Maureen Martinez FISH [employer]ER LAB BLOOD ORDERABLES Fin al Result Performing Organization Address City/[facility]/ZIP Co de Phone Number ARON BHAT [address] [employer] [place], [place] [phone] * Magnesium (01/02/2025 2:14 AM CDT) Magnesium 2.3 1.4 - 2.5 mg/dL Blood 01/02/2025 2:14 AM CDT 01/02/2025 2:24 AM CDT Maureen Martinez FISH [facility]ER LAB BLOOD ORDERABLES Fin al Result Performing Organization Address City/[facility]/ZIP Co de Phone Number ARON BHAT [address] [place] [address] * (ABNORMAL) Renal function panel (01/02/2025 2:14 AM CDT) Sodium 145 135 - 145 mmol/L Potassium, pl 4.2 3.3 - 4.9 mmol/L CERNER Chloride 109 97 - 110 mmol/L [facility] CH CO2 25 22 - 32 mmol/L [facility] CH Anion gap 11 2 - 15 mmol/L [facility] BUN 26(H) 6 - 25 mg/dL CERNER Creatinine 1.33(H) 0.80 - 1.30 mg/dL CERNER CH Comment:Icteric sample, test results may be affected. Glucose 146 70 - 199 mg/dL [facility] Comment: Interpretive Data Fasting glucose >/= 126 [...] 2022. Calcium 9.1 8.5 - 10.3 mg/dL [facility] Phosphorus, pl 2.5 2.3 - 4.5 mg/dL CERNER Albumin 3.5 3.5 - 5.0 g/dL CERNER Blood 01/02/2025 2:14 AM CDT 01/02/2025 2:24 AM CDT Maureen Martinez FISH [employer]CHER LAB BLOOD ORDERABLES Fin al Result Performing Organization Address City/[facility]/ZIP Co de Phone Number ARON BHAT [address] [place] [address] * POCT glucose (01/01/2025 11:59 PM CDT) Glucose, POC 137 70 - 199 mg/dL POC Performer [id number] CERNER CH Blood 01/01/2025 11:5 9 PM CDT 01/01/2025 11:59 PM CDT Angel Gonzalez MD LAB POCT ORDERABLES - DEVICE Final Result Performing Organization Address [facility] Co de Phone Number ARON BHAT [address] [address] [facility] [place] [address] * POCT glucose (01/01/2025 9:06 PM CDT) Glucose, POC 164 70 - 199 mg/dL POC Performer [id number] CERNER CH Blood 01/01/2025 9:06 PM CDT 01/01/2025 9:06 PM CDT Angel Gonzalez MD LAB POCT ORDERABLES - DEVICE Final Result Performing Organization Address [facility] de Phone Number ARON [address] [address] [facility] [place] [address] * Critical Care (01/01/2025 7:22 PM CDT) [...] plan with the ICU team and other medical/consultant intern staff, making frequent assessments and decisions regarding [...] - DEVICE Final Result Performing Organization Address City/[facility]/ZIP Co de Phone Number ARON BHAT [address] [address] [facility] [place] [address] * (ABNORMAL) POCT glucose (01/01/2025 4:32 PM CDT) Glucose, POC 208(H) 70 - 199 mg/dL POC Performer [id number] CERNER CH Blood 01/01/2025 4:32 PM CDT 01/01/2025 4:32 PM CDT Angel Gonzalez MD LAB POCT ORDERABLES - DEVICE Final Result Performing Organization Address [facility] Co de Phone Number ARON BHAT [address] [address] [place] [address] * (ABNORMAL) POC Blood Gas and Chemistries, [...] - DEVICE Final Result Performing Organization Address [facility] Co de Phone Number ARON HOME [address] [address] [facility] [place] [address] * (ABNORMAL) POCT glucose (01/01/2025 12:20 PM CDT) Glucose, POC 228(H) 70 - 199 mg/dL POC Performer [id number] [facility] CH Blood 01/01/2025 12:2 0 PM CDT 01/01/2025 12:20 PM CDT Angel Gonzalez MD LAB POCT ORDERABLES - DEVICE Final Result Performing Organization Address [facility] Co de Phone Number ARON HOME [address] [address] [facility] [place] [address] * Calcium, ionized, whole blood (01/01/2025 11:58 AM CDT) Ca, ionized, bld 5.06 4.50 - 5.10 mg/dL Blood 01/01/2025 11:5 8 AM CDT 01/01/2025 12:02 PM CDT Angel Gonzalez MD LAB BLOOD ORDERABLES Final R esult Performing Organization Address [facility]/ZIP Co de Phone Number LETIBERTO BHAT [address] [address] [facility] [place] [address] * eGFR (01/01/2025 11:58 AM CDT) eGFR [...] 8 AM CDT 01/01/2025 12:12 PM CDT us Angel Gonzalez MD LAB BLOOD ORDERABLES Final R esult ARON [address] [address] [place] [address] * (ABNORMAL) CBC without differential (01/01/2025 11:58 AM CDT) WBC 5.21 3.80 - 9.90 K/cumm Hgb 8.8(L) 13.0 - 17.5 g/dL [facility] Hct 26.1(L) 38.9 - 50.3 % [facility] Plt 81(L) 150 - 400 K/cumm [facility] MPV 10.9 9.1 - 12.3 fL [facility] RBC 2.93(L) 4.30 - 5.80 M/cumm [facility] MCV 89.1 81.3 - 96.4 fL [facility] MCH 30.0 27.1 - 33.3 pg [facility] MCHC 33.7 32.3 - 35.7 g/dL [facility] RDW CV 14.6 11.1 - 14.9 % [facility] RDW SD 47.5 35.7 - 48.1 fL [facility] NRBC abs 0.00 0.00 - 0.01 K/cumm [facility] Blood 01/01/2025 11:5 8 AM CDT 01/01/2025 12:02 PM CDT Angel Gonzalez MD LAB BLOOD ORDERABLES Final R esult ARON [address] [address] [facility] [place] [address] * Phosphorus (01/01/2025 11:58 AM CDT) Phosphorus, pl 3.2 2.3 - 4.5 mg/dL Blood 01/01/2025 11:5 8 AM CDT 01/01/2025 12:02 PM CDT Angel Gonzalez MD LAB BLOOD ORDERABLES Final R esult Performing Organization Address City/[facility] Co de Phone Number [facility] [address] [address] [employer] [place], [place] [id number] * Magnesium (01/01/2025 11:58 AM CDT) Magnesium 2.1 1.4 - 2.5 mg/dL Blood 01/01/2025 11:5 8 AM CDT 01/01/2025 12:02 PM CDT Angel Gonzalez MD LAB BLOOD ORDERABLES Final R esult Performing Organization Address City/[facility]/ZIP Co de Phone Number ARON [address] [address] [employer] [place], [place] [phone] * (ABNORMAL) Blood gas, arterial (01/01/2025 11:58 [...] AM CDT 01/01/2025 12:02 PM CDT us Maureen Martinez NP LAB BLOOD ORDERABLES Fin al Result [facility] [address] [address] [place] [address] * (ABNORMAL) Basic metabolic panel (01/01/2025 11:58 AM CDT) Sodium 145 135 - 145 mmol/L Potassium, pl 3.8 3.3 - 4.9 mmol/L [facility] Chloride 109 97 - 110 mmol/L [facility] CO2 24 22 - 32 mmol/L [facility] CH Anion gap 12 2 - 15 mmol/L [facility] BUN 22 6 - 25 mg/dL [facility] Creatinine 1.03 0.80 - 1.30 mg/dL [facility] Comment:Icteric sample, test results may be affected. Glucose 226(H) 70 - 199 mg/dL [facility] Comment: Interpretive Data Fasting glucose >/= 126 [...] 2022. Calcium 9.6 8.5 - 10.3 mg/dL [facility] CH Blood 01/01/2025 11:5 8 AM CDT 01/01/2025 12:02 PM CDT us Angel Gonzalez MD LAB BLOOD ORDERABLES Final R esult ARON BHAT [address] [address] [place] [address] * (ABNORMAL) POC Blood Gas and Chemistries, Arterial - (01/01/2025 11:05 AM CDT) pH, Art POC 7.47(H) 7.35 - [...] - DEVICE Final Result Performing Organization Address [facility] Co de Phone Number ARON [address] [address] [facility] [place] [address] * (ABNORMAL) POCT glucose (01/01/2025 8:03 AM CDT) Glucose, POC 251(H) 70 - 199 mg/dL POC Performer [id number] [facility] Blood 01/01/2025 8:03 AM CDT 01/01/2025 8:03 AM CDT Angel Gonzalez MD LAB POCT ORDERABLES - DEVICE Final Result Performing Organization Address [facility] de Phone Number ARON [address] [address] [facility] [place] [address] * ECG 12 lead (01/01/2025 7:41 AM CDT) 01/01/2025 7:41 AM CDT Narrative [facility] - 01/01/2025 6:31 PM CDT Vent Rate: 181 bpm RR Interval: 331 msec [place] Interval: 0 msec QRS Duration: 88 msec QT Interval: 242 msec QTC Interval: 337 msec P-R-T [place]: 0 - 22 - 9 degrees IMPRESSION: ATRIAL FIBRILLATION WITH RAPID VENTRICULAR RESPONSE NONSPECIFIC ST \T\ T-WAVE ABNORMALITY CRITICAL TEST RESULT Electronically Signed By: Dr. Emiliano Cuello [facility] Angel Gonzalez MD ECG ORDERABLES Final Result Performing Organization Address [facility] Co de Phone Number [facility] [employer] [facility] * Critical Care (01/01/2025 6:50 AM CDT) [...] plan with the ICU team and other medical/consultant intern staff, making frequent assessments and decisions regarding [...] in the medical record us Maureen Martinez [facility]ER IN CLINIC/BEDSIDE ORDERA BLES Final Result * [...] nasogastric tubes. Chest drains mediastinal drain and [place]-Maryanne catheter remain in place. Mild pulmonary vascular congestion with bibasilar atelectasis with no pneumothorax Procedure Note Jesus Omer MD - 01/01/2025 EXAMINATION: XR CHEST 1 VIEW DATE: 01/01/2025 5:20 AM HISTORY: Cardiac surgery follow-up FINDINGS:When compared with study of the prior day, the patient has been extubated with removal of endotracheal and nasogastric tubes. Chest drains mediastinal drain and [place]-Maryanne catheter remain in place. Mild pulmonary vascular congestion with bibasilar atelectasis with no pneumothorax IMPRESSION: Mild failure. No pneumothorax. Bibasilar atelectasis. Extubation. Electronically signed by: Jesus Omer M.D. Maureen Martinez FISH BUTCHER IMG XR PROCEDURES Final Result * (ABNORMAL) [...] CDT 01/01/2025 2:36 AM CDT Maureen Martinez NP LAB BLOOD ORDERABLES Fin al Result Performing Organization Address [facility] de Phone Number ARON [address] [address] [employer] [place], [place] [phone] * (ABNORMAL) Fibrinogen (01/01/2025 2:36 AM CDT) Fibrinogen 463(H) 170 - 400 mg/dL Blood 01/01/2025 2:36 AM CDT 01/01/2025 2:36 AM CDT Maureen Martinez NP LAB BLOOD ORDERABLES Fin al Result Performing Organization Address [facility] de Phone Number [facility] [address] Kaylene [facility] [place] [address] * (ABNORMAL) CBC without differential (01/01/2025 2:36 AM CDT) WBC 4.51 3.80 - 9.90 K/cumm Hgb 8.2(L) 13.0 - 17.5 g/dL [facility] Hct 24.4(L) 38.9 - 50.3 % [facility] Plt 75(L) 150 - 400 K/cumm [facility] MPV 10.0 9.1 - 12.3 fL [facility] RBC 2.75(L) 4.30 - 5.80 M/cumm [facility] MCV 88.7 81.3 - 96.4 fL [facility] MCH 29.8 27.1 - 33.3 pg [facility] MCHC 33.6 32.3 - 35.7 g/dL [facility] RDW CV 14.6 11.1 - 14.9 % [facility] RDW SD 46.8 35.7 - 48.1 fL [facility] NRBC abs 0.00 0.00 - 0.01 K/cumm [facility] Blood 01/01/2025 2:36 AM CDT 01/01/2025 2:36 AM CDT Maureen Martinez NP LAB BLOOD ORDERABLES Fin al Result Performing Organization Address [facility] de Phone Number LETIBERTO [address] Kaylene [facility] [place] [address] * (ABNORMAL) Calcium, ionized, whole blood (01/01/2025 2:31 AM CDT) Pathologist [facility] Ca, ionized, bld 4.44(L) 4.50 - 5.10 mg/dL Blood 01/01/2025 2:31 AM CDT 01/01/2025 2:36 AM CDT Maureen Martinez NP LAB BLOOD ORDERABLES Fin al Result Performing Organization Address City/[facility] Co de Phone Number [facility] [address] Kaylene [facility] [place] [address] * eGFR (01/01/2025 2:31 AM CDT) eGFR [...] AM CDT 01/01/2025 2:39 AM CDT Maureen Martinez NP LAB BLOOD ORDERABLES Fin al Result Performing Organization Address City/[facility] Co de Phone Number [facility] [address] Kaylene Valdez [place] [address] * Phosphorus (01/01/2025 2:31 AM CDT) Pathologist [facility] Phosphorus, pl 3.5 2.3 - 4.5 mg/dL Blood 01/01/2025 2:31 AM CDT 01/01/2025 2:36 AM CDT Maureen Martinez NP LAB BLOOD ORDERABLES Fin al Result Performing Organization Address [facility] [place] [address] Kaylene Valdez [place] [address] * Magnesium (01/01/2025 2:31 AM CDT) Magnesium 2.0 1.4 - 2.5 mg/dL Blood 01/01/2025 2:31 AM CDT 01/01/2025 2:36 AM CDT Maureen Martinez FISH [employer]ER LAB BLOOD ORDERABLES Fin al Result Performing Organization Address [facility] de Phone Number ARON BHAT [address] Kaylene [place] [address] * (ABNORMAL) Bilirubin, direct (01/01/2025 2:31 AM CDT) [facility] Bilirubin, direct 1.3(H) 0.1 - 0.3 mg/dL Blood 01/01/2025 2:31 AM CDT 01/01/2025 2:36 AM CDT Maureen Martinez [employer] LAB BLOOD ORDERABLES Fin al Result Performing Organization Address [facility] de Phone Number [facility] [address] Kaylene [place] [address] * (ABNORMAL) Comprehensive metabolic panel (01/01/2025 2:31 AM CDT) [facility] Sodium 147(H) 135 - 145 mmol/L Potassium, pl 4.0 3.3 - 4.9 mmol/L [facility] Chloride 112(H) 97 - 110 mmol/L [facility] CO2 23 22 - 32 mmol/L [facility] Anion gap 12 2 - 15 mmol/L [facility] BUN 22 6 - 25 mg/dL [facility] Creatinine 1.16 0.80 - 1.30 mg/dL [facility] Comment:Icteric sample, test results may be affected. Glucose 140 70 - 199 mg/dL [facility] Comment: Interpretive Data Fasting glucose >/= 126 [...] ORDERABLES Fin al Result Performing Organization Address [facility]/ZIP Co de Phone Number ARON BHAT [address] Kaylene Valdez [place] [address] * POCT glucose (12/31/2024 11:45 PM CDT) Glucose, POC 143 70 - 199 mg/dL POC Performer [id number] [facility] Blood 12/31/2024 11:4 5 PM CDT 12/31/2024 11:45 PM CDT us Angel Gonzalez MD LAB POCT ORDERABLES - DEVICE Final Result ARON [address] Kaylene Valdez Department [address] [employer] [place], [place] [id number] * POCT glucose (12/31/2024 9:49 PM CDT) Glucose, POC 131 70 - 199 mg/dL POC Performer [id number] [facility] Blood 12/31/2024 9:49 PM CDT 12/31/2024 9:49 PM CDT Angel Gonzalez MD LAB POCT ORDERABLES - DEVICE Final Result Performing Organization Address City/[facility] Co de Phone Number ARON BHAT [address] Kaylene [place] [address] * POCT glucose (12/31/2024 8:18 PM CDT) [facility] Signature Glucose, POC 106 70 - 199 mg/dL POC Performer [id number] [facility] Blood 12/31/2024 8:18 PM CDT 12/31/2024 8:18 PM CDT Angel Gonzalez MD LAB POCT ORDERABLES - DEVICE Final Result Performing Organization Address [facility] Co de Phone Number ARON BHAT [address] Kaylene [place] [address] * Critical Care (12/31/2024 7:12 PM CDT) Narrative Iain Moon MD - 12/31/2024 7:12 PM CDT Iain Moon MD 01/01/2025 6:19 PM Critical Care Performed by: Olvin Tyler NP Authorized by: Olvin Tyler NP CRITICAL CARE: Team: DIPESH Shift: PM Level of Billing: Critical Care [...] plan with the ICU team and other medical/consultant intern staff, making frequent assessments and decisions regarding [...] 104 70 - 199 mg/dL POC Performer [id number] ARON Blood 12/31/2024 6:43 PM CDT 12/31/2024 6:43 PM CDT Angel Gonzalez MD LAB POCT ORDERABLES - DEVICE Final Result ARON [address] Kaylene [place] [address] * eGFR (12/31/2024 5:57 PM CDT) eGFR 62 >=60 mL/min/1. 73 m2 Comment: [...] 5:57 PM CDT 12/31/2024 6:06 PM CDT Angel Gonzalez MD LAB BLOOD ORDERABLES Final R esult Performing Organization Address [facility] Co de Phone Number ARON BHAT [address] [place] [address] * (ABNORMAL) CBC without differential (12/31/2024 5:57 PM CDT) WBC 5.29 3.80 - 9.90 K/cumm Hgb 8.4(L) 13.0 - 17.5 g/dL [facility] Hct 24.8(L) 38.9 - 50.3 % [facility] Plt 94(L) 150 - 400 K/cumm [facility] MPV 11.0 9.1 - 12.3 fL [facility] RBC 2.82(L) 4.30 - 5.80 M/cumm [facility] MCV 87.9 81.3 - 96.4 fL [facility] MCH 29.8 27.1 - 33.3 pg [facility] MCHC 33.9 32.3 - 35.7 g/dL [facility] RDW CV 14.2 11.1 - 14.9 % [facility] RDW SD 45.2 35.7 - 48.1 fL [facility] NRBC abs 0.00 0.00 - 0.01 K/cumm [facility] CH Blood 12/31/2024 5:57 PM CDT 12/31/2024 6:07 PM CDT Angel Gonzalez MD LAB BLOOD ORDERABLES Final R esult Performing Organization Address City/[facility] Co de Phone Number ARON BHAT [address] Kaylene Department of Laboratories [place], [place] [id number] * (ABNORMAL) Basic metabolic panel (12/31/2024 5:57 PM CDT) Sodium 149(H) 135 - 145 mmol/L Potassium, pl 3.6 3.3 - 4.9 mmol/L [facility] Chloride 112(H) 97 - 110 mmol/L [facility] CO2 25 22 - 32 mmol/L [facility] Anion gap 12 2 - 15 mmol/L [facility] BUN 19 6 - 25 mg/dL [facility] Creatinine 1.20 0.80 - 1.30 mg/dL ARON Comment:Icteric sample, test results may be affected. Glucose 104 70 - 199 mg/dL ARON Comment: Interpretive Data Fasting glucose >/= 126 [...] 2022. Calcium 8.3(L) 8.5 - 10.3 mg/dL ARON Blood 12/31/2024 5:57 PM CDT 12/31/2024 6:06 PM CDT Angel Gonzalez MD LAB BLOOD ORDERABLES Final R esult Performing Organization Address [facility] Co de Phone Number [facility] [address] Kaylene [place] [address] * Transfuse platelets (12/31/2024 5:28 PM CDT) Blood Angel Gonzalez MD BLOOD TRANSFUSION ORDERABLES Final Result Performing Organization Address [facility] Co de Phone Number [facility] [address] Kaylene Department [place] [address] * Calcium, ionized, whole blood (12/31/2024 5:04 PM CDT) Ca, ionized, bld 4.67 4.50 - 5.10 mg/dL Blood 12/31/2024 5:04 PM CDT 12/31/2024 6:05 PM CDT Maureen Martinez NP LAB BLOOD ORDERABLES Fin al Result Performing Organization Address City/[facility] Co de Phone Number ARON [address] [facility] [place] [address] * Clinical pathology report (12/31/2024 5:04 PM CDT) Miscellaneous 12/31/2024 5:0 4 PM CDT 01/01/2025 8:43 AM CDT Narrative 01/01/2025 11:10 AM CDT EPIC results best viewed via link to PDF [facility] Department of Pathology [address] [place], [place] [id number] Final Report Note to Patients: This report [...] the details. Patient Name: DENISE JAMES Address: [address] [place] [address] , [place] [address] Gender: M : 1945 (Age: 79) Service: Cardiothoracic Location: [facility] Hospital #: [id number] Patient Type: [facility] Taken: 12/31/2024 Received: 01/01/2025 Accessioned: 01/01/2025 Physician(s): [...] determined by the Surgical Pathology Department at [facility] as part of an ongoing quality assurance advisor program and in compliance with federally mandated [...] characteristics determined by the Surgical Pathology Department [facility]. It has not been cleared or approved by the U. S. Food and Drug Administration. REPORT IMAGES AND SCANNED DOCUMENTS, IF INCLUDED, ONLY VIEWABLE IN PDF VERSION OF REPORTe o us Maureen Martinez NP LAB PATHOLOGY ORDERABLES Final Result * POCT glucose (12/31/2024 4:52 PM CDT) Glucose, POC 105 70 - 199 mg/dL POC Performer [id number] ARON BHAT Blood 12/31/2024 4:52 PM CDT 12/31/2024 4:52 PM CDT Angel Gonzalez MD LAB POCT ORDERABLES - DEVICE Final Result ARON [address] Kaylene Valdez [place] [address] * POCT glucose (12/31/2024 3:46 PM CDT) Glucose, POC 118 70 - 199 mg/dL POC Performer [id number] [facility] Blood 12/31/2024 3:46 PM CDT 12/31/2024 3:46 PM CDT Angel Gonzalez MD LAB POCT ORDERABLES - DEVICE Final Result Performing Organization Address [facility] Co de Phone Number ARON BHAT [address] Kaylene [facility] [address] [employer] [place], [place] [phone] * POCT glucose (12/31/2024 2:59 PM CDT) Glucose, POC 110 70 - 199 mg/dL POC Performer [id number] [facility] Blood 12/31/2024 2:59 PM CDT 12/31/2024 2:59 PM CDT Angel Gonzalez MD LAB POCT ORDERABLES - DEVICE Final Result Performing Organization Address [facility] Co de Phone Number ARON BHAT [address] Kaylene [facility] [place] [address] * POCT glucose (12/31/2024 1:43 PM CDT) Glucose, POC 118 70 - 199 mg/dL POC Performer [id number] [facility] Blood 12/31/2024 1:43 PM CDT 12/31/2024 1:43 PM CDT Angel Gonzalez MD LAB POCT ORDERABLES - DEVICE Final Result Performing Organization Address City/[facility] Co de Phone Number ARON BHAT [address] Kaylene [facility] [address] [place], [place] [id number] * POCT glucose (12/31/2024 12:47 PM CDT) Glucose, POC 123 70 - 199 mg/dL POC Performer [id number] [facility] Blood 12/31/2024 12:4 7 PM CDT 12/31/2024 12:47 PM CDT Angel Gonzalez MD LAB POCT ORDERABLES - DEVICE Final Result Performing Organization Address [facility] de Phone Number ARON BHAT [address] Kaylene [facility] [place] [address] * POCT glucose (12/31/2024 11:46 AM CDT) Glucose, POC 131 70 - 199 mg/dL POC Performer [id number] [facility] Blood 12/31/2024 11:4 6 AM CDT 12/31/2024 11:46 AM CDT Angel Gonzalez MD LAB POCT ORDERABLES - DEVICE Final Result Performing Organization Address [facility] de Phone Number ARON BHAT [address] Kaylene [place] [address] * POCT glucose (12/31/2024 10:38 AM CDT) Glucose, POC 136 70 - 199 mg/dL POC Performer [id number] [facility] Blood 12/31/2024 10:3 8 AM CDT 12/31/2024 10:38 AM CDT Angel Gonzalez MD LAB POCT ORDERABLES - DEVICE Final Result Performing Organization Address [facility] de Phone Number ARON BHAT [address] Kaylene [facility] [place] [address] * (ABNORMAL) Blood gas, arterial (12/31/2024 10:33 [...] Art (Measured) 98(H) 90 - 95 % ARON BHAT Blood 12/31/2024 10:3 3 AM CDT 12/31/2024 10:42 AM CDT Angel Gonzalez MD LAB BLOOD ORDERABLES Final R esult Performing Organization Address City/[facility] Co de Phone Number ARON BHAT [address] [place] [place] [address] * eGFR (12/31/2024 10:09 AM CDT) eGFR [...] ORDERABLES Final R esult Performing Organization Address City/[facility]/ZIP Co de Phone Number ARON BHAT [address] Kaylene [place] [address] * aPTT (12/31/2024 10:09 AM CDT) aPTT [...] ORDERABLES Final R esult Performing Organization Address City/[facility]/ZIP Co de Phone Number [facility] [address] [place] [address] * (ABNORMAL) Protime-INR (12/31/2024 10:09 AM CDT) Pathologist [facility] PT 14.3(H) 9.7 - 13.0 sec INR 1.32(H) 0.90 - 1.20 ARON Comment: Interpretive data [...] LAB BLOOD ORDERABLES Final R esult ARON [address] [place] [address] * (ABNORMAL) CBC without differential (12/31/2024 10:09 AM CDT) WBC 6.37 3.80 - 9.90 K/cumm Hgb 9.5(L) 13.0 - 17.5 g/dL ARON Hct 27.5(L) 38.9 - 50.3 % [facility] Plt 109(L) 150 - 400 K/cumm [facility] MPV 10.9 9.1 - 12.3 fL [facility] RBC 3.17(L) 4.30 - 5.80 M/cumm [facility] MCV 86.8 81.3 - 96.4 fL [facility] MCH 30.0 27.1 - 33.3 pg [facility] MCHC 34.5 32.3 - 35.7 g/dL [facility] RDW CV 14.2 11.1 - 14.9 % [facility] RDW SD 45.2 35.7 - 48.1 fL [facility] NRBC abs 0.00 0.00 - 0.01 K/cumm [facility] Blood 12/31/2024 10:0 9 AM CDT 12/31/2024 11:00 AM CDT Angel Gonzalez MD LAB BLOOD ORDERABLES Final R esult Performing Organization Address [facility] de Phone Number ARON [address] [place] [address] * (ABNORMAL) Hepatic function panel [...] MD LAB BLOOD ORDERABLES Jazmín l Result Performing Organization Address [facility] Co de Phone Number [facility] [address] Kaylene [place] [address] * (ABNORMAL) Basic metabolic panel (12/31/2024 10:09 AM CDT) Sodium 148(H) 135 - 145 mmol/L Potassium, pl 3.5 3.3 - 4.9 mmol/L C[facility]ER Chloride 111(H) 97 - 110 mmol/L [facility] CO2 24 22 - 32 mmol/L [facility] Anion gap 13 2 - 15 mmol/L [facility] BUN 20 6 - 25 mg/dL [facility] Creatinine 1.12 0.80 - 1.30 mg/dL [facility] Comment:Icteric sample, test results may be affected. Glucose 132 70 - 199 mg/dL [facility] Comment: Interpretive Data Fasting glucose >/= 126 [...] 2022. Calcium 8.3(L) 8.5 - 10.3 mg/dL [facility] Blood 12/31/2024 10:0 9 AM CDT 12/31/2024 10:59 AM CDT Angel Gonzalez MD LAB BLOOD ORDERABLES Final R esult ARON [address] Kaylene Department [place] [address] * POCT glucose (12/31/2024 9:28 AM CDT) Glucose, POC 135 70 - 199 mg/dL POC Performer [id number] [facility] Blood 12/31/2024 9:28 AM CDT 12/31/2024 9:28 AM CDT Angel Gonzalez MD LAB POCT ORDERABLES - DEVICE Final Result Performing Organization Address City/[facility]/ZIP Co de Phone Number ARON BHAT [address] Kaylene [facility] [place] [address] * (ABNORMAL) Blood gas, arterial (12/31/2024 9:24 [...] ORDERABLES Final R esult Performing Organization Address City/[facility]/ZIP Co de Phone Number ARON BHAT [address] Kaylene Valdez [facility] [place] [address] * POCT glucose (12/31/2024 8:26 AM CDT) Glucose, POC 97 70 - 199 mg/dL POC Performer [id number] [facility] Blood 12/31/2024 8:26 AM CDT 12/31/2024 8:26 AM CDT Angel Gonzalez MD LAB POCT ORDERABLES - DEVICE Final Result Performing Organization Address City/[facility]/ZIP Co de Phone Number ARON BHAT [address] Kaylene [facility] [place] [address] * ECG 12 lead (12/31/2024 7:20 AM CDT) 12/31/2024 7:20 AM CDT Narrative [facility] - 12/31/2024 4:48 PM CDT Vent Rate: 80 bpm RR Interval: 743 msec [place] Interval: 252 msec QRS Duration: 82 msec QT Interval: 399 msec QTC Interval: 435 msec P-R-T [place]: 84 - 0 - 27 degrees IMPRESSION: SINUS RHYTHM WITH FIRST DEGREE AV BLOCK LOW QRS VOLTAGE IN EXTREMITY LEADS [QRS DEFLECTION < 0.5 mV IN LIMB LEADS] NONSPECIFIC ST \T\ T-WAVE ABNORMALITY ABNORMAL ECG NO CHANGE FROM PREVIOUS TRACING NOTED Electronically Signed By: Harris Caro MD us Angel Gonzalez MD ECG ORDERABLES Final Result [facility] * Critical Care (12/31/2024 7:00 AM CDT) Gayathri Rangel MD - 12/31/2024 7:00 AM CDT Gayathri [...] plan with the ICU team and other medical/consultant intern staff, making frequent assessments and decisions regarding [...] 107 70 - 199 mg/dL POC Performer [id number] [facility]ON [facility] Blood 12/31/2024 6:35 AM CDT 12/31/2024 6:35 AM CDT Angel Gonzalez MD LAB POCT ORDERABLES - DEVICE Final Result ARON BHAT [address] Kaylene Valdez Department [place] [address] * XR Chest 1 View - Portable [...] in good position. The tip of the [place]-Maryanne catheter is in the undivided main pulmonary [...] in good position. The tip of the [place]-Maryanne catheter is in the undivided main pulmonary artery. Bilateral thoracostomy tubes and mediastinal drain in place. IMPRESSION: Findings as described above. Electronically signed by: Sangeeta Harmon M.D. Maureen Martinez FISH [employer] IMG XR PROCEDURES Final Result * POCT glucose (12/31/2024 5:31 AM CDT) Glucose, POC 123 70 - 199 mg/dL POC Performer [id number] [facility] Blood 12/31/2024 5:31 AM CDT 12/31/2024 5:31 AM CDT Angel Gonzalez MD LAB POCT ORDERABLES - DEVICE Final Result Performing Organization Address City/[facility]/ZIP Co de Phone Number ARON BHAT [address] Kaylene [place] [address] * Calcium, ionized, whole blood (12/31/2024 5:19 AM CDT) Ca, ionized, bld 4.69 4.50 - 5.10 mg/dL Blood 12/31/2024 5:19 AM CDT 12/31/2024 5:47 AM CDT Angel Gonzalez MD LAB BLOOD ORDERABLES Final R esult Performing Organization Address [facility] Co de Phone Number ARON BHAT [address] Kaylene [address] of [address] [employer] [place], [place] [id number] * (ABNORMAL) Blood gas, arterial (12/31/2024 5:19 AM CDT) pH, Art 7.46(H) 7.35 - 7.45 PCO2, Arterial 37 35 - 45 mmHg [facility] PO2, Arterial 91 83 - 108 mmHg [facility] HCO3 Art (Calculated) 27 20 - 30 mmol/L [facility] BE, art 2 mmol/L [facility] Comment: Interpretive Data No Reference Range Established Current Interpretive Data was last revised on 2017 O2 Sat Art (Measured) 97(H) 90 - 95 % [facility] Blood 12/31/2024 5:19 AM CDT 12/31/2024 5:35 AM CDT us Angel Gonzalez MD LAB BLOOD ORDERABLES Final R esult Performing Organization Address [facility] Co de Phone Number ARON BHAT [address] Kaylene Valdez [place] [address] * POCT glucose (12/31/2024 4:25 AM CDT) Glucose, POC 122 70 - 199 mg/dL POC Performer [id number] ARON Blood 12/31/2024 4:25 AM CDT 12/31/2024 4:25 AM CDT us Angel Gonzalez MD LAB POCT ORDERABLES - DEVICE Final Result Performing Organization Address [facility] Co de Phone Number LETIBERTO BHAT [address] Kaylene Valdez [place] [address] * Oxyhemoglobin, central venous (12/31/2024 4:04 AM CDT) Oxyhemoglobin, CV 62.5 % Comment: Interpretive Data No reference range established. Current interpretive data was last revised 2019. Blood 12/31/2024 4:04 AM CDT 12/31/2024 4:29 AM CDT us Angel Gonzalez MD LAB BLOOD ORDERABLES Final R esult Performing Organization Address [facility] Co de Phone Number ARON BHAT [address] Kaylene Valdez [facility] [employer] [place], [place] [id number] * Transfuse RBC (12/31/2024 3:57 AM CDT) Blood us Angel Gonzalez MD BLOOD TRANSFUSION ORDERABLES Final Result Performing Organization Address [facility] Co de Phone Number LETIBERTO BHAT [address] Kaylene Valdez [place] [address] * eGFR (12/31/2024 3:46 AM CDT) eGFR [...] MD LAB BLOOD ORDERABLES Final R esult [facility] [address] Kaylene [place] [address] * (ABNORMAL) Differential, auto (12/31/2024 3:46 AM CDT) Neutrophil abs 6.32 1.50 - 6.50 K/cumm Imm gran abs 0.03 0.00 - 0.10 K/cumm [facility] Lymphocyte abs 0.25(L) 0.80 - 3.30 K/cumm [facility] Monocyte abs 0.57 0.20 - 0.80 K/cumm [facility] Eosinophil abs 0.00 0.00 - 0.50 K/cumm [facility] Basophil abs 0.00 0.00 - 0.10 K/cumm [facility] Neutrophil pct 88.2 % [facility] Comment: Interpretive Data Percent cell count reference ranges are not reported, since discordance with absolute values may lead to misinterpretation of CBC data. Current Interpretive Data was last revised on 2017. Imm gran pct 0.4 % ARON Comment: Interpretive Data Percent cell count reference ranges are not reported, since discordance with absolute values may lead to misinterpretation of CBC data. Current Interpretive Data was last revised on 2017. Lymphocyte pct 3.5 % ARON Comment: Interpretive Data Percent cell count reference ranges are not reported, since discordance with absolute values may lead to misinterpretation of CBC data. Current Interpretive Data was last revised on 2017. Monocyte pct 7.9 % ARON Comment: Interpretive Data Percent cell count reference ranges are not reported, since discordance with absolute values may lead to misinterpretation of CBC data. Current Interpretive Data was last revised on 2017. Eosinophil pct 0.0 % ARON Comment: Interpretive Data Percent cell count reference ranges are not reported, since discordance with absolute values may lead to misinterpretation of CBC data. Current Interpretive Data was last revised on 2017. Basophil pct 0.0 % ARON Comment: Interpretive Data Percent cell count reference ranges are not reported, since discordance with absolute values may lead to misinterpretation of CBC data. Current Interpretive Data was last revised on 2017. Blood 12/31/2024 3:46 AM CDT 12/31/2024 3:54 AM CDT Angel Gonzalez MD LAB BLOOD ORDERABLES Final R esult ARON [address] Kaylene [place] [address] * Thyroid Function [place] (12/31/2024 3:46 AM CDT) TSH 0.92 0.30 - 4.20 mcIUnit/mL Blood 12/31/2024 3:46 AM CDT 12/31/2024 3:54 AM CDT Maureen Martinez [employer]ER LAB BLOOD ORDERABLES Fin al Result Performing Organization Address [facility] Co de Phone Number ARON BHAT [address] [place] [address] * (ABNORMAL) CBC with auto differential (12/31/2024 3:46 AM CDT) WBC 7.17 3.80 - 9.90 K/cumm Hgb 9.2(L) 13.0 - 17.5 g/dL CERNER CH Hct 26.5(L) 38.9 - 50.3 % CERNER CH Plt 127(L) 150 - 400 K/cumm CERNER CH MPV 10.0 9.1 - 12.3 fL CERNER CH RBC 3.04(L) 4.30 - 5.80 M/cumm CERNER CH MCV 87.2 81.3 - 96.4 fL CERNER CH MCH 30.3 27.1 - 33.3 pg CERNER CH MCHC 34.7 32.3 - 35.7 g/dL CERNER CH RDW CV 14.0 11.1 - 14.9 % CERNER CH RDW SD 44.1 35.7 - 48.1 fL CERNER CH NRBC abs 0.00 0.00 - 0.01 K/cumm CERNER CH Blood 12/31/2024 3:46 AM CDT 12/31/2024 3:54 AM CDT Angel Gonzalez MD LAB BLOOD ORDERABLES Final R esult ARON BHAT [address] [place] [address] * (ABNORMAL) Vitamin D 25 hydroxy (12/31/2024 3:46 AM CDT) Vitamin D 25-OH 17(L) 30 - 80 ng/mL Blood 12/31/2024 3:46 AM CDT 12/31/2024 3:58 AM CDT Maureen Martinez [employer]ER LAB BLOOD ORDERABLES Fin al Result Performing Organization Address [facility] Co de Phone Number ARON BHAT [address] [facility] [place] [address] * (ABNORMAL) Protime-INR (12/31/2024 3:46 AM CDT) PT 13.3(H) 9.7 - 13.0 sec INR 1.23(H) 0.90 - 1.20 ARON BHAT Comment: Interpretive data Oral anticoagulant therapeutic ranges: Venous thromboembolism prophylaxis or treatment: 2.0-3.0 CARDIOLOGY Standard range: 2.0-3.0 High-intensity range: 2.5-3.5 Refer to indication-specific guidelines for appropriate target ranges for prosthetic heart valve replacement. Current interpretive data was last revised on 2019. Blood 12/31/2024 3:46 AM CDT 12/31/2024 3:54 AM CDT Maureen Martinez [employer] LAB BLOOD ORDERABLES Fin al Result Performing Organization Address [facility] de Phone Number ARON BHAT [address] [facility] [place] [address] * Fibrinogen (12/31/2024 3:46 AM CDT) Fibrinogen 301 170 - 400 mg/dL Blood 12/31/2024 3:46 AM CDT 12/31/2024 3:54 AM CDT Maureen Martinez [employer] LAB BLOOD ORDERABLES Fin al Result Performing Organization Address [facility] Co de Phone Number ARON [address] [address] [facility] [place] [address] * Phosphorus (12/31/2024 3:46 AM CDT) Phosphorus, pl 3.2 2.3 - 4.5 mg/dL Blood 12/31/2024 3:46 AM CDT 12/31/2024 3:54 AM CDT Maureen Martinez [employer] LAB BLOOD ORDERABLES Fin al Result LETIBERTO BHAT [address] [employer] [place], [place] [id number] * Magnesium (12/31/2024 3:46 AM CDT) Pathologist [facility] Magnesium 2.3 1.4 - 2.5 mg/dL Blood 12/31/2024 3:46 AM CDT 12/31/2024 3:54 AM CDT Angel Gonzalez MD LAB BLOOD ORDERABLES Final R esult Performing Organization Address [facility] Co de Phone Number LETIBERTO BHAT [address] [facility] [place] [address] * Hemoglobin A1c (12/31/2024 3:46 AM CDT) Pathologist [facility] Hgb A1C 5.4 4.0 - 5.6 % [...] and children were not included. (Diabetes Care 31:7624-1319, 2008). The eAG is not equivalent to a fasting glucose. Blood 12/31/2024 3:46 AM CDT 12/31/2024 3:54 AM CDT Maureen Martinez [employer] LAB BLOOD ORDERABLES Uriel jamil Result - Final Performing Organization Address [facility] Co de Phone Number LETIBERTO BHAT [address] [facility] [address] [employer] [place], [place] [id number] * (ABNORMAL) Lipid panel (12/31/2024 3:46 AM [...] on 2018. Triglycerides 91 <=149 mg/dL ARON Comment: Interpretive Data Ages < or = [...] on 2018. HDL 29(L) >=40 mg/dL ARON Comment: Interpretive Data Ages < or = [...] 2018. LDL, calculated 23 <=129 mg/dL ARON Comment: Interpretive Data Ages < or = [...] NCEP Expert Panel. Circulation 2004;110:227 3. Ty Us et al. GLORIA Cardiol. 2020 December 26;5(5):540-548. doi: [email or web address] Current Interpretive Data was last revised on 2024. Non-HDL Cholesterol 41 mg/dL ARON Comment: Interpretive Data Ages < or = [...] LAB BLOOD ORDERABLES Fin al Result ARON [address] Department [place] [address] * (ABNORMAL) Basic metabolic panel (12/31/2024 3:46 AM CDT) Sodium 151(H) 135 - 145 mmol/L Potassium, pl 3.8 3.3 - 4.9 mmol/L CERNER CH Chloride 116(H) 97 - 110 mmol/L CERNER CH CO2 26 22 - 32 mmol/L CERNER CH Anion gap 9 2 - 15 mmol/L CERNER CH BUN 20 6 - 25 mg/dL [facility] Creatinine 1.11 0.80 - 1.30 mg/dL [facility] Comment:Icteric sample, test results may be affected. Glucose 123 70 - 199 mg/dL [facility] Comment: Interpretive Data Fasting glucose >/= 126 [...] 2022. Calcium 8.6 8.5 - 10.3 mg/dL [facility] Blood 12/31/2024 3:46 AM CDT 12/31/2024 3:54 AM CDT us Angel Gonzalez MD LAB BLOOD ORDERABLES Final R esult ARON BHAT [address] [place] [address] * POCT glucose (12/31/2024 3:24 AM CDT) Glucose, POC 119 70 - 199 mg/dL POC Performer [id number] [facility] Blood 12/31/2024 3:24 AM CDT 12/31/2024 3:24 AM CDT us Angel Gonzalez MD LAB POCT ORDERABLES - DEVICE Final Result ARON BHAT [address] [place] [address] * POCT glucose (12/31/2024 2:19 AM CDT) Glucose, POC 141 70 - 199 mg/dL POC Performer [id number] ARON Blood 12/31/2024 2:19 AM CDT 12/31/2024 2:19 AM CDT Angel Gonzalez MD LAB POCT ORDERABLES - DEVICE Final Result Performing Organization Address [facility] Phone Number ARON BHAT [address] [address] [facility] [place] [address] * Transfuse plasma Standard plasma (12/31/2024 1:27 AM CDT) Blood Angel Gonzalez MD BLOOD TRANSFUSION ORDERABLES Final Result Performing Organization Address [facility] Phone Number ARON BHAT [address] [facility] [place] [address] * aPTT (12/31/2024 1:16 AM CDT) aPTT [...] ORDERABLES Final R esult Performing Organization Address [facility] de Phone Number ARON BHAT [address] [facility] [address] [employer] [place], [place] [phone] * (ABNORMAL) Protime-INR (12/31/2024 1:16 AM CDT) PT 13.2(H) 9.7 - 13.0 sec INR 1.22(H) 0.90 - 1.20 ARON Comment: Interpretive data [...] ORDERABLES Final R esult Performing Organization Address [facility] Co de Phone Number ARON BHAT [address] [facility] [place] [place] [address] * Fibrinogen (12/31/2024 1:16 AM CDT) Fibrinogen 273 170 - 400 mg/dL Blood 12/31/2024 1:16 AM CDT 12/31/2024 1:29 AM CDT Angel Gonzalez MD LAB BLOOD ORDERABLES Final R esult Performing Organization Address [facility] Co de Phone Number LETIBERTO BHAT [address] [place] [address] * POCT glucose (12/31/2024 1:15 AM CDT) Glucose, POC 106 70 - 199 mg/dL POC Performer [id number] ARON Blood 12/31/2024 1:15 AM CDT 12/31/2024 1:15 AM CDT Angel Gonzalez MD LAB POCT ORDERABLES - DEVICE Final Result Performing Organization Address [facility] Co de Phone Number LETIBERTO BHAT [address] [address] [facility] [place] [address] * Prepare RBC (12/31/2024 1:13 AM CDT) Product code [id number] [facility] Unit Number [id number]- K CERNER Product Blood Type BNEG [facility] Dispense Status PRESUMED TRANSFUSED CERNER CH Product code M3622X60 CERNER CH Unit Number [id number]- I CERNER CH Product Blood Type BNEG CERNER CH Dispense Status RETURNED CERNER CH Product code Y9212X23 Unit Number [id number] CERNER CH Product Blood Type BNEG CERNER CH Dispense Status RETURNED CERNER CH Product code [id number] CERNER CH Unit Number [id number] C CERNER CH Product Blood Type BNEG CERNER CH Dispense Status PRESUMED TRANSFUSED CERNER CH Product code [id number] CERNER CH Unit Number [id number] CERNER CH Product Blood Type BNEG CERNER CH Dispense Status RETURNED CERNER CH Blood 12/31/2024 1:13 AM CDT 12/31/2024 1:14 AM CDT Angel Gonzalez MD BLOOD BANK PRODUCT ORDERABLE S Final Result Performing Organization Address [facility] Co de Phone Number ARON BHAT [address] [address] [facility] [place] [address] * Transfuse platelets (12/31/2024 12:07 AM CDT) Blood us Angel Gonzalez MD BLOOD TRANSFUSION ORDERABLES Final Result Performing Organization Address [facility] Co de Phone Number ARON BHAT [address] [address] [facility] [place] [address] * POCT glucose (12/30/2024 11:59 PM CDT) [facility] Signature Glucose, POC 159 70 - 199 mg/dL POC Performer [id number] CERNER CH Blood 12/30/2024 11:5 9 PM CDT 12/30/2024 11:59 PM CDT Angel Gonzalez MD LAB POCT ORDERABLES - DEVICE Final Result Performing Organization Address [facility] Co de Phone Number ARON BHAT [address] [address] [facility] [place] [address] * Potassium, whole blood (12/30/2024 [...] 4 PM CDT 12/31/2024 12:08 AM CDT us Angel Gonzalez MD LAB BLOOD ORDERABLES Final R esult [facility] [address] Department [place] [address] * (ABNORMAL) CBC without differential (12/30/2024 11:54 PM CDT) Pathologist [facility] WBC 6.74 3.80 - 9.90 K/cumm Hgb 8.4(L) 13.0 - 17.5 g/dL [facility] Hct 25.0(L) 38.9 - 50.3 % [facility] Plt 118(L) 150 - 400 K/cumm [facility] MPV 10.1 9.1 - 12.3 fL [facility] RBC 2.82(L) 4.30 - 5.80 M/cumm [facility] MCV 88.7 81.3 - 96.4 fL [facility] MCH 29.8 27.1 - 33.3 pg [facility] MCHC 33.6 32.3 - 35.7 g/dL [facility] RDW CV 13.8 11.1 - 14.9 % [facility] RDW SD 44.5 35.7 - 48.1 fL [facility] NRBC abs 0.00 0.00 - 0.01 K/cumm CERNER CH Blood 12/30/2024 11:5 4 PM CDT 12/31/2024 12:06 AM CDT us Angel Gonzalez MD LAB BLOOD ORDERABLES Final R esult Performing Organization Address [facility] Co de Phone Number RAON BHAT [address] [address] [facility] [place] [address] * (ABNORMAL) Blood gas, arterial (12/30/2024 11:54 [...] 4 PM CDT 12/31/2024 12:06 AM CDT Angel Gonzalez MD LAB BLOOD ORDERABLES Final R esult Performing Organization Address [facility] Co de Phone Number ARON BHAT [address] [address] [facility] [place] [address] * Transfuse plasma Standard plasma (12/30/2024 11:02 PM CDT) Blood us Angel Gonzalez MD BLOOD TRANSFUSION ORDERABLES Edited Result - Final Performing Organization Address [facility] Co de Phone Number ARON BHAT [address] [address] [facility] [place] [address] * POCT glucose (12/30/2024 10:57 PM CDT) Glucose, POC 174 70 - 199 mg/dL POC Performer [id number] CERNER CH Blood 12/30/2024 10:5 7 PM CDT 12/30/2024 10:57 PM CDT us Angel Gonzalez MD LAB POCT ORDERABLES - DEVICE Final Result Performing Organization Address [facility] Co de Phone Number ARON BHAT [address] [address] [facility] [address] [place], [place] [address] * Transfuse platelets (12/30/2024 10:16 PM CDT) Blood Angel Gonzalez MD BLOOD TRANSFUSION ORDERABLES Final Result Performing Organization Address [facility] Co de Phone Number ARON BHAT [address] [place] [address] * POCT glucose (12/30/2024 10:01 PM CDT) Glucose, POC 174 70 - 199 mg/dL POC Performer [id number] [facility] Blood 12/30/2024 10:0 1 PM CDT 12/30/2024 10:01 PM CDT Angel Gonzalez MD LAB POCT ORDERABLES - DEVICE Final Result Performing Organization Address [facility] Co de Phone Number ARON BHAT [address] [address] [facility] [place] [address] * POCT glucose (12/30/2024 8:58 PM CDT) Glucose, POC 185 70 - 199 mg/dL POC Performer [id number] [facility] Blood 12/30/2024 8:58 PM CDT 12/30/2024 8:58 PM CDT Angel Gonzalez MD LAB POCT ORDERABLES - DEVICE Final Result Performing Organization Address [facility] Co de Phone Number ARON BHAT [address] [address] [facility] [place] [address] * Calcium, ionized, whole blood (12/30/2024 8:51 PM CDT) Ca, ionized, bld 4.99 4.50 - 5.10 mg/dL Blood 12/30/2024 8:51 PM CDT 12/30/2024 9:07 PM CDT Angel Gonzalez MD LAB BLOOD ORDERABLES Final R esult Performing Organization Address [facility]/ZIP Co de Phone Number ARON BHAT [address] [place] [address] * eGFR (12/30/2024 8:51 PM CDT) eGFR [...] BLOOD ORDERABLES Final R esult ARON BHAT [address] [place] [address] * aPTT (12/30/2024 8:51 PM CDT) aPTT 32 28 - 38 sec Comment: Interpretive Data Heparin therapeutic range: 66.0 - 100.0 seconds. Range based on correlation with therapeutic heparin activity range of 0.3 - 0.7 Units/mL. Current interpretive data was last revised on 2023. Blood 12/30/2024 8:51 PM CDT 12/30/2024 9:04 PM CDT Angle Gonzalez MD LAB BLOOD ORDERABLES Final R esult Performing Organization Address [facility] Co de Phone Number ARON BHAT [address] [address] [facility] [place] [address] * Fibrinogen (12/30/2024 8:51 PM CDT) Pathologist [facility] Fibrinogen 234 170 - 400 mg/dL Blood 12/30/2024 8:51 PM CDT 12/30/2024 9:04 PM CDT Angel Gonzalez MD LAB BLOOD ORDERABLES Final R esult Performing Organization Address [facility] de Phone Number ARON BHAT [address] [place] [address] * (ABNORMAL) CBC without differential (12/30/2024 8:51 PM CDT) Pathologist [facility] WBC 6.61 3.80 - 9.90 K/cumm Hgb 9.2(L) 13.0 - 17.5 g/dL [facility] Hct 27.4(L) 38.9 - 50.3 % [facility] Plt 92(L) 150 - 400 K/cumm [facility] MPV 9.7 9.1 - 12.3 fL [facility] RBC 3.04(L) 4.30 - 5.80 M/cumm [facility] MCV 90.1 81.3 - 96.4 fL [facility] MCH 30.3 27.1 - 33.3 pg [facility] MCHC 33.6 32.3 - 35.7 g/dL [facility] RDW CV 13.8 11.1 - 14.9 % [facility] RDW SD 44.6 35.7 - 48.1 fL [facility] NRBC abs 0.00 0.00 - 0.01 K/cumm CERNER CH Blood 12/30/2024 8:51 PM CDT 12/30/2024 9:04 PM CDT Angel Gonzalez MD LAB BLOOD ORDERABLES Final R esult Performing Organization Address [facility] de Phone Number [facility] [address] [place] [address] * (ABNORMAL) Blood gas, arterial (12/30/2024 8:51 [...] ORDERABLES Final R esult Performing Organization Address [facility] de Phone Number [facility] [address] [address] [facility] [place] [address] * (ABNORMAL) Basic metabolic panel (12/30/2024 8:51 PM CDT) Sodium 148(H) 135 - 145 mmol/L Potassium, pl 3.8 3.3 - 4.9 mmol/L CERNER CH Chloride 112(H) 97 - 110 mmol/L CERNER CH CO2 20(L) 22 - 32 mmol/L CERNER CH Anion gap 16(H) 2 - 15 mmol/L CERNER CH BUN 19 6 - 25 mg/dL CERNER CH Creatinine 0.85 0.80 - 1.30 mg/dL CERNER CH Comment:Icteric sample, test results may be affected. Glucose 183 70 - 199 mg/dL CERNER CH Comment: [...] 2022. Calcium 8.9 8.5 - 10.3 mg/dL ARON Blood 12/30/2024 8:51 PM CDT 12/30/2024 9:03 PM CDT Angel Gonzalez MD LAB BLOOD ORDERABLES Final R esult Performing Organization Address [facility] Co de Phone Number LETIBERTO [address] [address] [place] [address] * Transfuse RBC (12/30/2024 8:31 PM CDT) Blood Angel Gonzalez MD BLOOD TRANSFUSION ORDERABLES Final Result Performing Organization Address [facility] Co de Phone Number ARON [address] [address] [place] [address] * Transfuse RBC (12/30/2024 7:59 PM CDT) Blood Angel Gonzalez MD BLOOD TRANSFUSION ORDERABLES Final Result Performing Organization Address [facility] Co de Phone Number [facility] [address] [address] [facility] [place] [address] * Transfuse platelets (12/30/2024 7:58 PM CDT) Blood Angel Gonzalez MD BLOOD TRANSFUSION ORDERABLES Final Result Performing Organization Address [facility] Co de Phone Number ARON BHAT [address] [address] [facility] [place] [address] * Transfuse platelets (12/30/2024 7:57 PM CDT) Blood Angel Gonzalez MD BLOOD TRANSFUSION ORDERABLES Final Result Performing Organization Address [facility] Co de Phone Number ARON BHAT [address] [address] [facility] [place] [address] * POCT glucose (12/30/2024 7:52 PM CDT) Glucose, POC 161 70 - 199 mg/dL POC Performer [id number] CERNER CH Blood 12/30/2024 7:52 PM CDT 12/30/2024 7:52 PM CDT Angel Gonzalez MD LAB POCT ORDERABLES - DEVICE Final Result Performing Organization Address [facility] de Phone Number ARON BHAT [address] [address] [facility] [place] [address] * Prepare RBC: 4 Units (12/30/2024 7:23 PM CDT) Product code [id number] Unit Number [id number] 7-C CERNER CH Product Blood Type BNEG CERNER CH Dispense Status RETURNED CERNER CH Product code [id number] CERNER CH Unit Number [id number] [id number] CERNER CH Product Blood Type BNEG CERNER CH Dispense Status RETURNED CERNER CH Blood 12/30/2024 7:23 PM CDT Narrative CERNER CH - 12/31/2024 4:15 AM CDT Are special requirements needed? (All products are leukoreduced and CMV- safe)- >No Date required:-20241230 LRRBC # of [id number] Reasons:-Hemorrhagic shock/Life-threatening bleeding} Angel Gonzalez MD BLOOD BANK PRODUCT ORDERABLE S Final Result ARON [address] [facility] Department [place] [address] * Critical Care (12/30/2024 7:19 PM CDT) [...] plan with the ICU team and other medical/consultant intern staff, making frequent assessments and decisions regarding [...] platelets: 3 Units (12/30/2024 7:04 PM CDT) Pathologist [facility] Product code [id number] CERNER CH Unit Number [id number] CERNER CH Product Blood Type ANEG CERNER CH Dispense Status PRESUMED TRANSFUSED CERNER CH Product code [id number] Unit Number [id number]- L CERNER CH Product Blood Type BPOS CERNER CH Dispense Status PRESUMED TRANSFUSED CERNER CH Product code [id number] CERNER CH Unit Number [id number]- J CERNER CH Product Blood Type OPOS CERNER CH Dispense Status PRESUMED TRANSFUSED CERNER CH Blood Venous blood specimen / Unknown 12/30/2024 7:04 PM CDT Narrative CERNER CH - 01/03/2025 10:16 PM CDT Are special requirements needed? (all products are leukoreduced)->No Date required:-20241230 PLT # of Units:-3-Units Reasons:-Major active bleeding} Angel Gonzalez MD BLOOD BANK PRODUCT ORDERABLE S Final Result Performing Organization Address [facility] Co de Phone Number ARON BHAT [address] [address] [facility] [place] [address] * POCT glucose (12/30/2024 6:42 PM CDT) Glucose, POC 152 70 - 199 mg/dL POC Performer [id number] CERNER CH Blood 12/30/2024 6:42 PM CDT 12/30/2024 6:42 PM CDT Angel Gonzalez MD LAB POCT ORDERABLES - DEVICE Final Result Performing Organization Address [facility] de Phone Number ARON BHAT [address] [address] [facility] [place] [address] * Prepare platelets (12/30/2024 6:29 PM CDT) Product code [id number] CERNER CH Unit Number [id number] CERNER CH Product Blood Type APOS CERNER CH Dispense Status PRESUMED TRANSFUSED CERNER CH Product code [id number] Unit Number [id number] CERNER CH Product Blood Type APOS CERNER CH Dispense Status PRESUMED TRANSFUSED CERNER CH Blood 12/30/2024 6:29 PM CDT 12/30/2024 6:38 PM CDT Conner Kurtz MD BLOOD BANK PRODUCT OR DERABLES Final Result Performing Organization Address [facility] Co de Phone Number ARON BHAT [address] [address] [facility] [place] [address] * Prepare plasma: 3 Units Standard plasma (12/30/2024 6:28 PM CDT) [facility] Product code [id number] Unit Number [id number] CERNER CH Product Blood Type BPOS CERNER CH Dispense Status PRESUMED TRANSFUSED CERNER CH Product code [id number] CERNER CH Unit Number [id number]- R CERNER CH Product Blood Type BPOS CERNER CH Dispense Status PRESUMED TRANSFUSED CERNER CH Product code [id number] CERNER CH Unit Number [id number]- N CERNER CH Product Blood Type BPOS CERNER CH Dispense Status PRESUMED TRANSFUSED CERNER CH Blood Venous blood specimen / Unknown 12/30/2024 6:28 PM CDT Narrative CERNER CH - 01/03/2025 10:15 PM CDT Is this plasma order intended for a COVID-19 patient as convalescent plasma?->Standard plasma Special Requirements Needed?->No Date required:-20241230 FFP # of Units:-3-Units Reasons:-Active major bleeding with coagulopathy} us Angel Gonzalez MD BLOOD BANK PRODUCT ORDERABLE S Final Result Performing Organization Address [facility] Co de Phone Number ARON BHAT [address] [address] [facility] [place] [address] * Lactate (12/30/2024 6:25 PM CDT) [facility] Lactate 1.2 0.7 - 2.0 mmol/L Blood 12/30/2024 6:25 PM CDT 12/30/2024 6:48 PM CDT Angel Gonzalez MD LAB BLOOD ORDERABLES Final R esult Performing Organization Address City/[facility]/ZIP Co de Phone Number ARON BHAT [address] [address] [place] [address] * (ABNORMAL) Protime-INR (12/30/2024 6:25 PM CDT) [facility] PT 17.1(H) 9.7 - 13.0 sec INR 1.57(H) 0.90 - 1.20 [facility] Comment: Interpretive data Oral anticoagulant therapeutic ranges: Venous thromboembolism prophylaxis or treatment: 2.0-3.0 CARDIOLOGY Standard range: 2.0-3.0 High-intensity range: 2.5-3.5 Refer to indication-specific guidelines for appropriate target ranges for prosthetic heart valve replacement. Current interpretive data was last revised on 2019. Blood 12/30/2024 6:25 PM CDT 12/30/2024 6:48 PM CDT Maureen Martinez FISH BUTCHER LAB BLOOD ORDERABLES Fin al Result Performing Organization Address [facility] de Phone Number [facility] [address] [address] [facility] [place] [address] * Fibrinogen (12/30/2024 6:25 PM CDT) Pathologist [facility] Fibrinogen 201 170 - 400 mg/dL Blood 12/30/2024 6:25 PM CDT 12/30/2024 6:48 PM CDT Maureen Martinez FISH BUTCHER LAB BLOOD ORDERABLES Fin al Result Performing Organization Address [facility] Phone Number [facility] [address] [address] [facility] [place] [address] * (ABNORMAL) CBC without differential (12/30/2024 6:25 PM CDT) Pathologist [facility] WBC 5.26 3.80 - 9.90 K/cumm Hgb 7.3(L) 13.0 - 17.5 g/dL [facility] Hct 21.1(L) 38.9 - 50.3 % [facility] Plt 64(L) 150 - 400 K/cumm [facility] MPV 10.7 9.1 - 12.3 fL [facility] RBC 2.29(L) 4.30 - 5.80 M/cumm [facility] MCV 92.1 81.3 - 96.4 fL CERNER [...] ORDERABLES Final R esult Performing Organization Address City/[facility] Co de Phone Number ARON BHAT [address] [address] Val[address] Department [employer] [place], [place] [id number] * Type and screen (12/30/2024 6:25 PM CDT) Colton, indirect Negative ABO Rh B Negative [facility]ERNER CH Blood 12/30/2024 6:25 PM CDT 12/30/2024 7:12 PM CDT Narrative [facility] - 12/30/2024 7:57 PM CDT Has the patient had Daratumumab or Isatuximab in the past 6 months?->Unknown Angel Gonzalez MD LAB BLOOD BANK TEST ORDERABL ES Final Result Performing Organization Address [facility] Co de Phone Number ARON BHAT [address] [address] Val[address] Department [employer] [place], [place] [phone] * (ABNORMAL) Blood gas, arterial (12/30/2024 6:25 [...] Art (Measured) 99(H) 90 - 95 % [facility] Blood 12/30/2024 6:25 PM CDT 12/30/2024 6:48 PM CDT Angel Gonzalez MD LAB BLOOD ORDERABLES Final R esult Performing Organization Address [facility] Co de Phone Number ARON BHAT [address] [address] [facility] [place] [address] * Transfuse cryoprecipitate (pooled units) (12/30/2024 6:22 PM CDT) Blood Angel Gonzalez MD BLOOD TRANSFUSION ORDERABLES Final Result Performing Organization Address [facility] de Phone Number ARON BHAT [address] [address] [facility] [place] [address] * Prepare RBC: 1 Units (12/30/2024 6:20 PM CDT) [facility] Signature Product code [id number] Unit Number [id number] [id number] [facility] Product Blood Type BNEG [facility] Dispense Status RETURNED [facility] Blood 12/30/2024 6:20 PM CDT Narrative [facility] - 12/31/2024 1:13 AM CDT Are special requirements needed? (All products are leukoreduced and CMV- safe)- >No Date required:-20241230 LRRBC # of [id number] Reasons:-Hemorrhagic shock/Life-threatening bleeding} Angel Gonzalez MD BLOOD BANK PRODUCT ORDERABLE S Final Result Performing Organization Address [facility] Co de Phone Number LETIBERTO BHAT [address] [address] [facility] [place] [address] * Transfuse cryoprecipitate (pooled units) (12/30/2024 5:46 PM CDT) Blood Angel Gonzalez MD BLOOD TRANSFUSION ORDERABLES Final Result Performing Organization Address [facility] de Phone Number ARON BHAT [address] [address] [facility] [place] [address] * POCT glucose (12/30/2024 5:40 PM CDT) [facility] Glucose, POC 149 70 - 199 mg/dL POC Performer [id number] [facility]ER [facility] Blood 12/30/2024 5:40 PM CDT 12/30/2024 5:40 PM CDT Angel Gonzalez MD LAB POCT ORDERABLES - DEVICE Final Result Performing Organization Address [facility] de Phone Number LETIBERTO BHAT [address] [address] [facility] [place] [address] * Transfuse platelets (12/30/2024 5:30 PM CDT) Blood Angel Gonzalez MD BLOOD TRANSFUSION ORDERABLES Final Result Performing Organization Address [facility] de Phone Number [facility]ON HOME [address] [address] [facility] [place] [address] * Prepare RBC: 1 Units (12/30/2024 5:25 PM CDT) [facility] Product code [id number] Unit Number [id number] [id number] CERNER Product Blood Type BNEG CERNER Dispense Status RETURNED CERNER Blood 12/30/2024 5:25 PM CDT Narrative [facility] - 12/31/2024 4:15 AM CDT Are special requirements needed? (All products are leukoreduced and CMV- safe)- >No Date required:-20241230 LRRBC # of [id number] Reasons:-Hemorrhagic shock/Life-threatening bleeding} Angel Gonzalez MD BLOOD BANK PRODUCT ORDERABLE S Final Result Performing Organization Address [facility] de Phone Number LETIBERTO BHAT [address] [address] [facility] [place] [address] * Transfuse platelets (12/30/2024 5:16 PM CDT) Blood us Angel Gonzalez MD BLOOD TRANSF[place] [address] [address] [place] [address] * Critical Care (12/30/2024 4:59 PM CDT) [...] plan with the ICU team and other medical/consultant intern staff, making frequent assessments and decisions regarding [...] Units (12/30/2024 4:47 PM CDT) Product code [id number] Unit Number [id number] [facility] Product Blood Type OPOS [facility]ERNER CH Dispense Status PRESUMED TRANSFUSED [facility]ERNER CH Product code [id number] [facility]ER CH Unit Number [id number] [facility] Product Blood Type APOS [facility] Dispense Status PRESUMED TRANSFUSED [facility] Blood Venous blood specimen / Unknown 12/30/2024 4:47 PM CDT Narrative [facility] - 12/30/2024 10:15 PM CDT Cryo # of [id number] Reasons:-Dysfibrinogenemia WITH bleeding} us Angel Gonzalez MD BLOOD BANK PRODUCT ORDERABLE S Final Result Performing Organization Address [facility] Co de Phone Number ARON BHAT [address] Kaylene Valdez [facility] [place] [address] * Prepare platelets: 2 Units (12/30/2024 4:38 PM CDT) Product code [id number] Unit Number [id number] [facility] Product Blood Type APOS [facility]ERNER CH Dispense Status PRESUMED TRANSFUSED [facility]ER CH Product code [id number] CERNER CH Unit Number [id number] [facility]ER CH Product Blood Type APOS CERNER CH Dispense Status PRESUMED TRANSFUSED [facility]ERNER CH Blood Venous blood specimen / Unknown 12/30/2024 4:38 PM CDT Narrative [facility] CH - 12/30/2024 10:15 PM CDT Are special requirements needed? (all products are leukoreduced)->No Date required:-20241230 PLT # of Units:-2-Units Reasons:-Major active bleeding} Angel Gonzalez MD BLOOD BANK PRODUCT ORDERABLE S Final Result Performing Organization Address [facility] Co de Phone Number ARON Rojo33 Kaylene Valdez [facility] [place] [address] * (ABNORMAL) Calcium, ionized, whole blood (12/30/2024 4:37 PM CDT) Pathologist [facility] Ca, ionized, bld 4.41(L) 4.50 - 5.10 mg/dL Blood 12/30/2024 4:37 PM CDT 12/30/2024 4:42 PM CDT Angel Gonzalez MD LAB BLOOD ORDERABLES Final R esult Performing Organization Address City/[facility]/ZIP Co de Phone Number ARON BHAT [address] [address] [facility] [place] [address] * eGFR (12/30/2024 4:37 PM CDT) eGFR [...] ORDERABLES Final R esult Performing Organization Address [facility] Co de Phone Number [facility]ON HOME [address] Kaylene [place] [address] * aPTT (12/30/2024 4:37 PM CDT) aPTT [...] ORDERABLES Final R esult Performing Organization Address City/[facility]/ZIP Co de Phone Number ARON HOME [address] [address] [place] [address] * (ABNORMAL) Protime-INR (12/30/2024 4:37 PM CDT) PT 19.2(H) 9.7 - 13.0 sec INR 1.76(H) 0.90 - 1.20 [facility] Comment: Interpretive data Oral anticoagulant therapeutic ranges: Venous thromboembolism prophylaxis or treatment: 2.0-3.0 CARDIOLOGY Standard range: 2.0-3.0 High-intensity range: 2.5-3.5 Refer to indication-specific guidelines for appropriate target ranges for prosthetic heart valve replacement. Current interpretive data was last revised on 2019. Blood 12/30/2024 4:37 PM CDT 12/30/2024 4:43 PM CDT us Angel Gonzalez MD LAB BLOOD ORDERABLES Final R esult [facility] [address] [address] Department [place] [address] * (ABNORMAL) CBC without differential (12/30/2024 4:37 PM CDT) WBC 4.30 3.80 - 9.90 K/cumm Hgb 9.3(L) 13.0 - 17.5 g/dL [facility] Hct 27.4(L) 38.9 - 50.3 % [facility] Plt 55(L) 150 - 400 K/cumm [facility] MPV 10.3 9.1 - 12.3 fL [facility] RBC 3.07(L) 4.30 - 5.80 M/cumm [facility] MCV 89.3 81.3 - 96.4 fL [facility] MCH 30.3 27.1 - 33.3 pg [facility] MCHC 33.9 32.3 - 35.7 g/dL [facility] RDW CV 12.8 11.1 - 14.9 % [facility] RDW SD 41.3 35.7 - 48.1 fL [facility] NRBC abs 0.00 0.00 - 0.01 K/cumm [facility] Blood 12/30/2024 4:37 PM CDT 12/30/2024 4:43 PM CDT Angel Gonzalez MD LAB BLOOD ORDERABLES Final R esult Performing Organization Address [facility] Co de Phone Number ARON BHAT [address] [address] [facility] [place] [address] * Phosphorus (12/30/2024 4:37 PM CDT) Phosphorus, pl 3.1 2.3 - 4.5 mg/dL Blood 12/30/2024 4:37 PM CDT 12/30/2024 5:36 PM CDT Maureen Martinez NP LAB BLOOD ORDERABLES Fin al Result Performing Organization Address [facility] de Phone Number ARON BHAT [address] [address] [facility] [place] [address] * Magnesium (12/30/2024 4:37 PM CDT) Magnesium 2.1 1.4 - 2.5 mg/dL Blood 12/30/2024 4:37 PM CDT 12/30/2024 4:43 PM CDT Angel Gonzalez MD LAB BLOOD ORDERABLES Final R esult Performing Organization Address [facility] de Phone Number ARON BHAT [address] [address] [place] [address] * (ABNORMAL) Blood gas, arterial (12/30/2024 4:37 [...] Art (Measured) 99(H) 90 - 95 % [facility] Blood 12/30/2024 4:37 PM CDT 12/30/2024 4:42 PM CDT Angel Gonzalez MD LAB BLOOD ORDERABLES Final R esult Performing Organization Address City/[facility]/ZIP Co de Phone Number ARON BHAT [address] [address] [place] [address] * (ABNORMAL) Basic metabolic panel (12/30/2024 4:37 PM CDT) Sodium 145 135 - 145 mmol/L Potassium, pl 4.0 3.3 - 4.9 mmol/L CERNER Chloride 114(H) 97 - 110 mmol/L [facility] CH CO2 19(L) 22 - 32 mmol/L [facility] Anion gap 12 2 - 15 mmol/L [facility] BUN 20 6 - 25 mg/dL [facility] Creatinine 0.77(L) 0.80 - 1.30 mg/dL CERNER Glucose 156 70 - 199 mg/dL [facility] Comment: Interpretive Data Fasting glucose >/= 126 [...] 2022. Calcium 7.3(L) 8.5 - 10.3 mg/dL [facility] Blood 12/30/2024 4:37 PM CDT 12/30/2024 4:43 PM CDT Angel Gonzalez MD LAB BLOOD ORDERABLES Final R esult Performing Organization Address City/[facility]/ZIP Co de Phone Number ARON BHAT [address] [address] [place] [address] * POCT glucose (12/30/2024 4:26 PM CDT) Glucose, POC 109 70 - 199 mg/dL POC Performer [id number] [facility]ON HOME Blood 12/30/2024 4:26 PM CDT 12/30/2024 4:26 PM CDT us Angel Gonzalez MD LAB POCT ORDERABLES - DEVICE Final Result ARON BHAT [address] [address] [place] [address] * XR Chest 1 View (12/30/2024 3:40 [...] in place. The tip of a right [place]-Maryanne catheter is in the origin of the [...] in place. The tip of a right [place]-Maryanne catheter is in the origin of the [...] inferior: normal 16- Apical septal: normal 17- [place]: normal Valves: Aortic Valve: Annulus: normal Leaflet [...] the written comments contained within the report. [facility] ANESTHESIA ORDERABLES Final Result * Transfuse platelets (12/30/2024 3:16 PM CDT) Blood [facility] DO BLOOD TRANSFUSION ORDERABLE S Final Result ARON BHAT [address] Kaylene Valdez Department [place] [address] * (ABNORMAL) POC Blood Gas and [...] POC 9.1(L) 13.0 - 17.5 g/dL CERNER CH Blood 12/30/2024 3:11 PM CDT 12/30/2024 3:11 PM CDT Angel Gonzalez MD LAB POCT ORDERABLES - DEVICE Final Result ARON [address] [address] Department of Laboratories [place], [place] [id number] * (ABNORMAL) Platelet count (12/30/2024 3:00 PM CDT) Plt 51(L) 150 - 400 K/cumm Blood 12/30/2024 3:00 PM CDT 12/30/2024 3:03 PM CDT Narrative [facility] - 12/30/2024 3:06 PM CDT Please call results to ext. [phone]. Thanks. us Angel Gonzalez MD LAB BLOOD ORDERABLES Final R esult Performing Organization Address [facility] Co de Phone Number ARON BHAT [address] [address] [place] [address] * Prepare platelets: 1 Units (12/30/2024 2:58 PM CDT) Pathologist [facility] Product code [id number] Unit Number [id number] [facility]ER CH Product Blood Type OPOS [facility] Dispense Status PRESUMED TRANSFUSED [facility]ER CH Blood Venous blood specimen / Unknown 12/30/2024 2:58 PM CDT Narrative [facility]ER CH - 12/30/2024 10:15 PM CDT Are special requirements needed? (all products are leukoreduced)->No Date required:-20241230 PLT # of Units:-1-Units Reasons:-Prior to cardiovascular surgery, plt < 100 K/cumm} Angel Gonzalez MD BLOOD BANK PRODUCT ORDERABLE S Final Result Performing Organization Address [facility] Co de Phone Number ARON HBAT [address] [address] [place] [address] * (ABNORMAL) POC Blood Gas and Chemistries, Arterial - (12/30/2024 2:41 PM CDT) Pathologist [facility] pH, Art POC 7.34(L) 7.35 - 7.45 [...] POC 7.7(L) 13.0 - 17.5 g/dL CERNER Blood 12/30/2024 2:41 PM CDT 12/30/2024 2:41 PM CDT Angel Gonzalez MD LAB POCT ORDERABLES - DEVICE Final Result Performing Organization Address [facility] de Phone Number ARON [address] [place] [address] * (ABNORMAL) Protime-INR (12/30/2024 2:41 PM CDT) PT 21.8(H) 9.7 - 13.0 sec INR 1.99(H) 0.90 - 1.20 [facility] Comment: Interpretive data Oral anticoagulant therapeutic ranges: Venous thromboembolism prophylaxis or treatment: 2.0-3.0 CARDIOLOGY Standard range: 2.0-3.0 High-intensity range: 2.5-3.5 Refer to indication-specific guidelines for appropriate target ranges for prosthetic heart valve replacement. Current interpretive data was last revised on 2019. Blood 12/30/2024 2:41 PM CDT 12/30/2024 2:44 PM CDT Narrative [facility] - 12/30/2024 2:54 PM CDT Please call results to ext. [phone]. Thanks. Angel Gonzalez MD LAB BLOOD ORDERABLES Final R esult Performing Organization Address [facility] Co de Phone Number LETIBERTO [address] Kaylene [facility] [place] [address] * (ABNORMAL) Platelet count (12/30/2024 2:41 PM CDT) Pathologist [facility] Plt 52(L) 150 - 400 K/cumm Blood 12/30/2024 2:41 PM CDT 12/30/2024 2:44 PM CDT Narrative [facility]ER CH - 12/30/2024 2:47 PM CDT Please call results to ext. [phone]. Thanks. us Angel Gonzalez MD LAB BLOOD ORDERABLES Final R esult Performing Organization Address [facility]/ZIP Co de Phone Number ARON BHAT [address] Kaylene Valdez [place] [address] * POC Activated Clotting Time, High Range (12/30/2024 2:38 PM CDT) [facility] ACT 137 87 - 138 sec POC Performer [id number] C[facility]ER CH Blood 12/30/2024 2:38 PM CDT 12/30/2024 2:38 PM CDT Angel Gonzalez MD LAB BLOOD ORDERABLES Final R esult Performing Organization Address [facility] Co de Phone Number ARON BHAT [address] Kaylene Valdez [place] [address] * Transfuse plasma (12/30/2024 2:21 PM CDT) Blood Candelaria Resendez DO BLOOD TRANSFUSION ORDERABLE S Final Result Performing Organization Address [facility] Co de Phone Number ARON BHAT [address] Kaylene Valdez Department of [employer] [place], [place] [id number] * (ABNORMAL) POC Blood Gas and Chemistries, Arterial - (12/30/2024 2:20 PM CDT) Pathologist [facility] pH, Art POC 7.32(L) 7.35 - 7.45 [...] ORDERABLES - DEVICE Final Result ARON BHAT [address] [address] [place] [address] * Transfuse platelets (12/30/2024 2:18 PM CDT) Blood us Candelaria Resendez DO BLOOD TRANSFUSION ORDERABLE S Final Result ARON BHAT [address] Kaylene Valdez [place] [address] * POC Activated Clotting Time, High Range (12/30/2024 2:16 PM CDT) ACT 134 87 - 138 sec POC Performer [id number] [facility] CH Blood 12/30/2024 2:16 PM CDT 12/30/2024 2:16 PM CDT Angel Gonzalez MD LAB BLOOD ORDERABLES Final R esult Performing Organization Address City/[facility]/ZIP Co de Phone Number ARON BHAT [address] [address] [place] [address] * Transfuse plasma (12/30/2024 2:13 PM CDT) [facility] BLOOD TRANSFUSION ORDERABLE S Final Result Performing Organization Address [facility] Co de Phone Number ARON BHAT [address] [address] [facility] [place] [address] * Transfuse platelets (12/30/2024 2:12 PM CDT) Blood Candelaria [facility] BLOOD TRANSFUSION ORDERABLE S Final Result Performing Organization Address [facility] Co de Phone Number ARON BHAT [address] [address] [place] [address] * (ABNORMAL) POC Blood Gas and Chemistries, [...] 1:38 PM CDT 12/30/2024 1:38 PM CDT Angel Gonzalez MD LAB POCT ORDERABLES - DEVICE Final Result Performing Organization Address City/[facility]/ZIP Co de Phone Number ARON Rojo33 Kaylene [place] [address] * (ABNORMAL) POC Activated Clotting Time, High Range (12/30/2024 1:37 PM CDT) ACT 856(H) 87 - 138 sec POC Performer [id number] [facility]ER CH Blood 12/30/2024 1:37 PM CDT 12/30/2024 1:37 PM CDT Angel Gonzalez MD LAB BLOOD ORDERABLES Final R esult Performing Organization Address City/[facility]/ZIP Co de Phone Number ARON BHAT [address] [address] [place] [address] * (ABNORMAL) Platelet count (12/30/2024 1:11 PM CDT) Plt 79(L) 150 - 400 K/cumm Blood 12/30/2024 1:11 PM CDT 12/30/2024 1:17 PM CDT Narrative [facility] CH - 12/30/2024 1:20 PM CDT Please call results to ext. [phone]. Thanks. Angel Gonzalez MD LAB BLOOD ORDERABLES Final R esult ARON BHAT [address] [address] [place] [address] * (ABNORMAL) POC Activated Clotting Time, High Range (12/30/2024 1:03 PM CDT) ACT >1,005(H) 87 - 138 sec POC Performer [id number] C[facility]ER CH Blood 12/30/2024 1:03 PM CDT 12/30/2024 1:03 PM CDT Angel Gonzalez MD LAB BLOOD ORDERABLES Final [facility] Performing Organization Address [facility] Co de Phone Number ARON BHAT [address] [address] [place] [address] * (ABNORMAL) POC Blood Gas and Chemistries, [...] 1:03 PM CDT Angel Gonzalez MD LAB POCT ORDERABLES - DEVICE Final Result Performing Organization Address [facility] Co de Phone Number ARON BHAT [address] [address] [facility] [employer] [place], [place] [id number] * (ABNORMAL) POC Activated Clotting Time, High Range (12/30/2024 12:06 PM CDT) ACT >1,005(H) 87 - 138 sec POC Performer [id number] CERNER CH Blood 12/30/2024 12:0 6 PM CDT 12/30/2024 12:06 PM CDT Angel Gonzalez MD LAB BLOOD ORDERABLES Final R esult Performing Organization Address [facility] Co de Phone Number ARON BHAT [address] [place] [address] * (ABNORMAL) POC Blood Gas [...] 12:06 PM CDT Angel Gonzalez MD LAB POCT ORDERABLES - DEVICE Final Result Performing Organization Address [facility] Co de Phone Number ARON BHAT [address] [address] [place] [address] * (ABNORMAL) POC Activated Clotting Time, High Range (12/30/2024 11:05 AM CDT) ACT >1,005(H) 87 - 138 sec POC Performer [id number] [facility]ER CH Blood 12/30/2024 11:0 5 AM CDT 12/30/2024 11:05 AM CDT Angel Gonzalez MD LAB BLOOD ORDERABLES Final R esult Performing Organization Address City/[facility]/ZIP Co de Phone Number ARON BHAT [address] Kaylene Valdez [place] [address] * (ABNORMAL) POC Blood Gas [...] LAB POCT ORDERABLES - DEVICE Final Result [address] Department of Laboratories [place] [id number] * Surgical pathology (12/30/2024 10:47 AM CDT) Tissue (Lung BLEB) 12/30/2024 1:43 PM CDT Narrative PATHOLOGY CH - 01/06/2025 9:58 AM CDT EPIC results best viewed via link to PDF [facility] Department of Pathology [address] [place] [address] Note to Patients: This report may [...] Final Report Patient Name: DENISE JAMES Address: [address] [place] [address] , [place] [address] Gender: M : 1945 (Age: 79) Service: Cardiothoracic Location: Hospital #: [id number] Patient Type: [facility] Taken: 12/30/2024 Received: 12/31/2024 Accessioned: 12/31/2024 Reported: [...] diagnosis. 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 REPORT IMAGES AND SCANNED DOCUMENTS, IF INCLUDED, ONLY VIEWABLE IN PDF VERSION OF REPORT The performance characteristics of some immunohistochemical stains, fluorescence in-situ hybridization tests and immunophenotyping by flow cytometry cited in this report (if any) were determined by the Surgical Pathology Department at [facility] as part of an ongoing quality assurance advisor program and in compliance with federally mandated [...] characteristics determined by the Surgical Pathology Department [facility]. It has not been cleared or approved by the U. S. Food and Drug Administration. Note for decalcified specimens: This assay has not been validated on decalcified tissues. Results should be interpreted with caution given the possibility of false negativity on decalcified specimens Angel Gonzalez MD LAB PATHOLOGY ORDERABLES Fin al Result Performing Organization Address City/[facility]/ZIP Co de Phone Number PATHOLOGY [address] [place] [address] * (ABNORMAL) POC Activated Clotting Time, High Range (12/30/2024 10:38 AM CDT) Pathologist [facility] ACT 820(H) 87 - 138 sec POC Performer [id number] [facility] Blood 12/30/2024 10:3 8 AM CDT 12/30/2024 10:38 AM CDT Angel Gonzalez MD LAB BLOOD ORDERABLES Final R esult Performing Organization Address City/[facility]/ZIP Co de Phone Number [facility] [address] Department [place] [address] * (ABNORMAL) POC Blood Gas and Chemistries, Arterial - (12/30/2024 10:02 AM CDT) Pathologist [facility] pH, Art POC 7.36 7.35 - 7.45 [...] LAB POCT ORDERABLES - DEVICE Final Result [facility] [address] Department of Laboratories [place] [phone] * Peripheral IV Catheter (12/30/2024 9:14 AM [...] no complications Candelaria Resendez DO ANESTHESIA ORDERABLES Edite d Result - Final * BW AN SHEATH INTRODUCER PERFORMABLE, PULMONARY ARTERY CATH (12/30/2024 9:13 AM CDT) Khushi Batista AA - 12/30/2024 9:13 AM CDT Khushi [...] * Arterial Line (12/30/2024 9:12 AM CDT) Khushi Batista AA - 12/30/2024 9:12 AM CDT Khushi [...] Resendez DO ANESTHESIA ORDERABLES Final Result * [place] AN ELECTIVE ENDOTRACHEAL AIRWAY (12/30/2024 9:11 AM [...] with: silk tape Number of attempts: 1 Candelaria Resendez DO ANESTHESIA ORDERABLES Final Result * (ABNORMAL) POC [...] 8:54 AM CDT 12/30/2024 8:54 AM CDT Angel Gonzalez MD LAB POCT ORDERABLES - DEVICE Final Result Performing Organization Address [facility] Co de Phone Number ARON BHAT [address] [place] [address] * POC Activated Clotting Time, High Range (12/30/2024 8:51 AM CDT) ACT 115 87 - 138 sec POC Performer [id number] CERNER [facility] Blood 12/30/2024 8:51 AM CDT 12/30/2024 8:51 AM CDT Angel Gonzalez MD LAB BLOOD ORDERABLES Final R esult Performing Organization Address City/[facility] Co de Phone Number ARON BHAT [address] [place] [address] * Check Sample (12/30/2024 7:45 AM CDT) ABO Rh B Negative CH HCLL OTHER 12/30/2024 7:45 AM CDT 12/30/2024 7:50 AM CDT Angel Gonzalez MD LAB BLOOD ORDERABLES Final R esult Performing Organization Address [facility] Co de Phone Number ARON BHAT [address] [place] [address] CH * PEDRO Add-On For OR (12/30/2024 7:16 AM CDT) BSA 2.13 m2 CONS SCIMAGE Narrative CONS SCIMAGE - 12/30/2024 7:16 AM CDT Procedure Auto Finalized by Rule: BW CV PEDRO DURING CASE OR Please see the Anesthesiologist's Procedure Note for the results. us Candelaria Resendez DO CV ECHO PROCEDURES Final Re sult Performing Organization Address [facility] de Phone Number CONS SCIMAGE * Potassium, whole blood (12/30/2024 [...] 6:55 AM CDT 12/30/2024 7:02 AM CDT us Roxie Blanco NP LAB BLOOD ORDERABLES Final Result Performing Organization Address [facility] Co de Phone Number ARON BHAT [address] Department [place] [address] * Prepare platelets: 2 Units (12/30/2024 6:47 AM CDT) Product code U5528K44 CERNER CH Unit Number [id number]- S CERNER CH Product Blood Type OPOS CERNER CH Dispense Status PRESUMED TRANSFUSED CERNER CH Product code [id number] Unit Number [id number]- S CERNER CH Product Blood Type OPOS CERNER CH Dispense Status PRESUMED TRANSFUSED CERNER CH Blood Venous blood specimen / Unknown 12/30/2024 6:47 AM CDT Narrative LETINER CH - 12/30/2024 10:15 PM CDT Specify Procedure:->CABG Are special requirements needed? (all products are leukoreduced)->No Date required:-20241230 PLT # of Units:-2-Units Reasons:-Hold for procedure (specify procedure)} Jessica Kimble NP BLOOD BANK PRODUCT ORDERAB LES Final Result ARON [address] Department [place] [address] * Prepare plasma: 2 Units Standard plasma (12/30/2024 6:47 AM CDT) Product code [id number] CERNER CH Unit Number [id number]- I CERNER CH Product Blood Type BPOS CERNER CH Dispense Status PRESUMED TRANSFUSED CERNER CH Product code I8663B32 Unit Number [id number]- H CERNER CH Product Blood Type ABPO CERNER CH Dispense Status PRESUMED TRANSFUSED CERNER CH Blood Venous blood specimen / Unknown 12/30/2024 6:47 AM CDT Narrative LETINER CH - 12/30/2024 10:15 PM CDT Specify Procedure:->CABG, encompass clamp, MARC wedge Is this plasma order intended for a COVID-19 patient as convalescent plasma?->Standard plasma Special Requirements Needed?->No Date required:-20241230 FFP # of Units:-2-Units Reasons:-Hold for procedure (specify procedure)} Jessica Kimble FISH BUTCHER BLOOD BANK PRODUCT ORDERAB LES Final Result Performing Organization Address City/[facility]/ZIP Co de Phone Number ARON BHAT [address] Department of [employer] [place], [place] [id number] * Prepare RBC: 4 Units (12/30/2024 6:47 AM CDT) Product code [id number] CERNER CH Unit Number [id number]- Z CERNER CH Product Blood Type BNEG CERNER CH Dispense Status PRESUMED TRANSFUSED CERNER CH Product code [id number] CERNER CH Unit Number [id number]- M CERNER CH Product Blood Type BNEG CERNER CH Dispense Status PRESUMED TRANSFUSED CERNER CH Product code [id number] Unit Number [id number]- R CERNER CH Product Blood Type BNEG CERNER CH Dispense Status PRESUMED TRANSFUSED CERNER CH Product code [id number] CERNER CH Unit Number [id number]- I CERNER CH Product Blood Type BNEG CERNER CH Dispense Status RETURNED CERNER CH Blood 12/30/2024 6:47 AM CDT Narrative ARON CH - 01/03/2025 10:15 PM CDT Specify Procedure:->CABG, encompass clamp, MARC wedge Are special requirements needed? (All products are leukoreduced and CMV- safe)- >No Date required:-20241230 LRRBC # of Datmk-9-Dzthu Reasons:-Hold for procedure (specify procedure)} Jessica Edith Lamin MADDEN BLOOD BANK PRODUCT ORDERAB LES Final Result Performing Organization Address City/[facility]/ZIP Co de Phone Number ARON BHAT [address] [place] [address] * Pulmonary Function Test -[facility]; Complete/Full (12/24/2024 10:23 AM CDT) Anatomical Region [...] oxygen saturation at rest Janice Callahan MD FCCP Angel Gonzalez MD PFT ORDERABLES Final Result [...] Sangeeta Harmon M.D. us Angel Gonzalez MD IM US PROCEDURES Final Resu lt * eGFR [...] MD LAB BLOOD ORDERABLES Final R esult [facility] [address] Department [place] [address] * (ABNORMAL) Basic metabolic panel (12/18/2024 12:06 PM CDT) Sodium 141 135 - 145 mmol/L Potassium, pl 4.2 3.3 - 4.9 mmol/L [facility] Chloride 102 97 - 110 mmol/L CERNER CH CO2 26 22 - 32 mmol/L CERNER Anion gap 13 2 - 15 mmol/L [facility] BUN 30(H) 6 - 25 mg/dL [facility] Creatinine 1.18 0.80 - 1.30 mg/dL CERNER Glucose 92 70 - 199 mg/dL [facility] Comment: Interpretive Data Fasting glucose >/= 126 [...] 2022. Calcium 10.1 8.5 - 10.3 mg/dL [facility] Blood 12/18/2024 12:0 6 PM CDT 12/18/2024 12:06 PM CDT us Angel Gonzalez MD LAB BLOOD ORDERABLES Final R esult ARON [address] [address] [place] [address] * (ABNORMAL) aPTT (12/18/2024 12:05 PM CDT) [...] ORDERABLES Final R esult Performing Organization Address [facility] de Phone Number ARON BHAT [address] [place] [address] * (ABNORMAL) Protime-INR (12/18/2024 12:05 PM CDT) Pathologist [facility] PT 15.0(H) 9.7 - 13.0 sec INR 1.38(H) 0.90 - 1.20 ARON Comment: Interpretive data [...] ORDERABLES Final R esult Performing Organization Address [facility] Co de Phone Number ARON [address] [place] [address] * (ABNORMAL) CBC without differential (12/18/2024 12:05 PM CDT) WBC 6.03 3.80 - 9.90 K/cumm Hgb 16.6 13.0 - 17.5 g/dL CERNER CH Hct 49.4 38.9 - 50.3 % CERNER CH Plt 115(L) 150 - 400 K/cumm CERNER CH Comment:No clot detected in sample. MPV 11.2 9.1 - 12.3 fL CERNER RBC 5.50 4.30 - 5.80 M/cumm CERNER CH MCV 89.8 81.3 - 96.4 fL CERNER MCH 30.2 27.1 - 33.3 pg CERNER MCHC 33.6 32.3 - 35.7 g/dL CERNER CH RDW CV 13.0 11.1 - 14.9 % CERNER CH RDW SD 42.6 35.7 - 48.1 fL CERNER NRBC abs 0.00 0.00 - 0.01 K/cumm CERNER Blood 12/18/2024 12:0 5 PM CDT 12/18/2024 12:05 PM CDT us Angel Gonzalez MD LAB BLOOD ORDERABLES Final R esult [facility] [address] [address] Department [place] [address] * (ABNORMAL) Urinalysis reflex to microscopic and culture Urine, clean voided (12/18/2024 11:54 AM CDT) Color, ur Yellow Yellow Clarity, ur Clear Clear CERNER Specific gravity, ur 1.011 1.003 - 1.030 CERNER CH pH, urine 5.0 CERNER Comment: Interpretive Data U rine pH is affected by diet, medications, systemic acid-base disturbances, and renal tubular function. pH may affect urinary stone formation. For example, urine pH below 6.0 may help reduce the tendency for calcium phosphate stones and pH greater than 6.0 may reduce the tendency for uric acid stone formation. Source: [facility] [employer] Current Interpretive Data was last revised on [...] MICROBIOLOGY - GENERAL O RDERABLES Final Result Performing Organization Address [facility] Co de Phone Number ARON [address] Department [place] [address] * Type and screen (12/18/2024 11:54 AM CDT) ABO Rh B Negative [place], indirect Negative CERNER CH Blood 12/18/2024 11:5 4 AM CDT 12/18/2024 12:10 PM CDT Narrative [facility] - 12/18/2024 12:59 PM CDT Has the patient had Daratumumab or Isatuximab in the past 6 months?->Unknown Angel Gonzalez MD LAB BLOOD BANK TEST ORDERABL ES Final Result Performing Organization Address [facility] Co de Phone Number ARON [address] [address] Department [place] [address] * ECG 12 lead (12/18/2024 11:49 AM CDT) 12/18/2024 11:4 9 AM CDT Narrative [facility] - 12/18/2024 7:42 PM CDT Vent Rate: 51 bpm RR Interval: 1170 msec [place] Interval: 228 msec QRS Duration: 94 msec QT Interval: 439 msec QTC Interval: 415 msec P-R-T [place]: 60 - 13 - 74 degrees IMPRESSION: SINUS BRADYCARDIA WITH FIRST DEGREE AV BLOCK ABNORMAL ECG Electronically Signed By: Dr. Emiliano Cuello [facility] us Angel Gonzalez MD ECG ORDERABLES Final Result [facility] * XR Chest PA Lateral 2 [...] visualized spine. Procedure Note Kem Bartholomew II, - 12/18/2024 EXAMINATION: Computed tomography of the [...] Bartholomew II, D.O. Angel Gonzalez MD IMG CT PROCEDURES Final Resu lt * Cardiology Document Scan (11/19/2024 1:37 PM CDT) Anatomical Region Laterality Modality Other Gustavo Iverson MD CV CARDIAC SERVICES PRO CEDURES Final Result * (ABNORMAL) Lipid panel (11/19/2024 11:36 AM CDT) Pathologist [facility] SCRIBED Cholesterol, Total 173 0 - 200 EXTERNAL LAB SCRIBED HDL 41 40 - 100 EXTERNAL LAB SCRIBED LDL 110(A) 0 - 100 EXTERNAL LAB SCRIBED Triglycerides 69 0 - 150 EXTERNAL LAB Blood 11/19/2024 11:3 6 AM CDT Historical Provider LAB BLOOD ORDERABLES Jazmín l Result EXTERNAL LAB * Cardiology Document Scan (11/19/2024) Anatomical Region Laterality Modality Other Gustavo Iverson MD CV CARDIAC SERVICES PRO CEDURES Final Result * TRANSTHORACIC ECHO (TTE) COMPLETE W DOPPLER/CF WO CONTRAST (11/07/2024 9:56 AM CDT) Pathologist [facility] LV EF 45-50 % CONS SCIMAGE Anatomical Region Laterality Modality Ultrasound 11/07/2024 9:15 AM CDT Narrative 11/07/2024 12:43 PM CDT [facility] Cardiology [address], [place] [address] [address], [place] [address] P:[phone] P:[phone] Echocardiographic Report Patient Name: DENISE JAMES : 1945 Study Date: 11/07/2024 9:15:36 AM Gender: M Tech: [facility] Location: [facility] Provider: GUSTAVO IVERSON Height(Cm): 185 BSA: 2.14 [...] 16 - 34 ] TR Peak Andrew 1.98 m/s [ 1.00 - 2.80 ] TR Peak PG 16 mmHg RVSP 19.00 mmHg [ 10.00 - 36.00 ] Lateral E` 0.08 m/s [ 0.10 - 0.15 ] E` 0.05 m/s E/E` 8 2D/MM Value Range Doppler Value Range - FINDINGS: Interpretation Site: Exam was interpreted at [facility]. Left Ventricle: Normal left ventricular size. [...] Procedure Note Gustavo Iverson MD - 11/07/2024 [facility] Cardiology [address] [facility] [address] [id number] [address] [facility] [address], [place] [address] P:[phone] P:[phone] Echocardiographic Report Patient Name: DENISE JAMES : 1945 Study Date: 11/07/2024 9:15:36 AM Gender: M Tech: [facility] Location: [facility] Provider: GUSTAVO IVERSON Height(Cm): 185 BSA: 2.14 [...] FINDINGS: Interpretation Site: Exam was interpreted at [facility]. Left Ventricle: Normal left ventricular size. [...] Gustavo Iverson MD 11/07/2024 12:43:04 PM CDT Gustaov Iverson MD CV ECHO PROCEDURES Jazmín l Result from Last 3 Months Insurance [facility] MEDICARE ADVANTAGE [place] [id number] UHC MEDICARE ADVANTAGE [place] [id number] Advance Directives For more information, please contact: [phone] Documents on File Type Date Recorded Patient Branch Sales And Service Representative Expl anation ADVANCE DIRECTIVE 01/10/2025 7:27 AM BASIL Brandon WILL ADVANCE DIRECTIVE 01/10/2025 7:27 AM POWER OF HEALTH EDUCATION ASSISTANT-MEDICAL ADVANCE DIRECTIVE 01/08/2025 2:58 PM Power of Indirect Fire Infantryman-Medical * Full Code (Latest Code Status on File) Date Activated Date Inactivated Comments 12/30/2024 4:33 PM 01/08/2025 8:14 PM Healthcare Agents on File Name Relationship Healthcare Agent Relationshi p Communication Catina James Spouse Health Care Agent Care Teams Set Illustrator Relationship Specialty Start Date End Date Rj Shepherd MD [address] [address] PCP - General Internal Medicine 07/23/24 Angel Gonzalez MD [address] [facility] [address] [place] [address] Surgeon Cardiothoracic Surgery 01/08/25 Padmaja Louis NP [address] [place] [address] Nurse Practitioner Cardiovascular Disease 01/08/25
[2025-01-18 15:05] VITALS: BP 166/84; PULSE 98; RESP 16; TEMP 36.4; O2SAT 99
--- NOTE | 2025-01-18 16:08 | ED_ITS ---
HPI - Epistaxis General Chief complaint: Epistaxis Stated complaint: epistaxis Time Seen by Provider: 01/18/25 15:51 Source: patient Mode of arrival: ambulatory Limitations: no limitations History of Present Illness HPI Narrative: 79 YEARS OLD WHITE MALE STATUS POST CABG 2 WEEKS AGO CAME WITH NOSE BLEED PROBABLY STARTED ON THE LEFT SIDE THEN LATER BILATERALLY STARTED 2 DAYS AGO AND IS GETTING WORSE. PATIENT HAVE NO ACTIVE NOSE BLEED ON ARRIVAL TO THE ED. PATIENT CURRENTLY ON ASPIRIN AND ELIQUIS Related Data Home Medications ?Medication ?Instructions ?Recorded ?Confirmed ?Last Taken ?Type sacubitril 49 mg-valsartan 51 mg 1 tablet PO BID 11/18/24 01/18/25 11/19/24 History tablet (Entresto) metoprolol succinate 200 mg 200 mg PO DAILY 11/19/24 01/18/25 11/19/24 History tablet,extended release 24 hr (Toprol XL) amiodarone 200 mg tablet 200 mg PO Q12H 01/18/25 01/18/25 01/18/25 History atorvastatin 10 mg tablet 10 mg PO QPM 01/18/25 01/18/25 01/18/25 History clopidogrel 75 mg tablet 75 mg PO DAILY 01/18/25 01/18/25 01/18/25 History methocarbamol 500 mg tablet 500 mg PO Q8H 01/18/25 01/18/25 01/18/25 History oxycodone 10 mg tablet 10 mg PO Q4-6H 01/18/25 01/18/25 Unknown History Allergies Allergy/AdvReac Type Severity Reaction Status Date / Time No Known Drug Allergies Allergy Unknown Unknown Verified 11/19/24 07:25 Review of Systems 2 Review of Systems: All systems reviewed & are unremarkable except as noted in HPI and below PMFSH Past Medical History Medical History Acute heart failure Pulmonary edema Atrial fibrillation with RVR Hypertension Surgical History Surgical History No history of previous surgery Family History Family History Other Unknown family medical history Social History Social History Smoking packs per day: 1 Smoking cigarettes per day: 20.0 Years smoked: 30 Smoking pack-years: 30.00 Smoking status: Former smoker Alcohol intake: current Drinks per week: 7 Substance use type: does not use Do You Feel Safe in your Home?: Yes Lack of Transportation: No Lack of Food: Never True Current Housing: I Have Housing Concerned About Future Housing: No Difficulty Paying Gas/Electric Bills: No Difficulty Paying for Meds: No Currently Unemployed: No Education: High School Diploma/GED Difficulty w/ Childcare or Family Care: No Living arrangements: with family Additional living arrangements comments: - Catina Spiritual care concerns: No Exam 2 Narrative: GENERAL APPEARANCE: WELL-DEVELOPED, WELL-NOURISHED SKIN: NORMAL COLOR HEAD: NORMOCEPHALIC, NONTRAUMATIC EYES: CLEAR CONJUNCTIVA ENT: OROPHARYNX NORMAL, EARS NORMAL, MOIST BLOOD IN NOSTRILS MORE ON THE LEFT SIDE, NO ACTIVE BLEEDING NECK: SUPPLE, NONTENDER CHEST AND RESPIRATORY: AIRWAY PATENT, NO RESPIRATORY DISTRESS, NO ACCESSORY MUSCLE USE HEART: REGULAR RATE/RHYTHM ABDOMEN: SOFT, NONTENDER, NO ORGANOMEGALY, QUIET BOWEL SOUNDS VASCULAR: NORMAL PERIPHERAL PULSES, NORMAL CAPILLARY REFILL. MUSCULOSKELETAL: NORMAL RANGE OF MOTION, NONTENDER BACK NEUROLOGIC: ALERT AND ORIENTED ?3, PRIVATE DUTY NURSE IS NORMAL TESTED, NO GROSS MOTOR DEFICIT Course Vital Signs Vital signs: Vital Signs Temperature 36.4 C 01/18/25 15:05 Pulse Rate 98 01/18/25 15:05 Respiratory Rate 16 01/18/25 15:05 Blood Pressure 166/84 H 01/18/25 15:05 Pulse Oximetry 99 01/18/25 15:05 Temperature 36.4 C 01/18/25 15:05 Pulse Rate 98 01/18/25 15:05 Respiratory Rate 16 01/18/25 15:05 Blood Pressure 166/84 H 01/18/25 15:05 Pulse Oximetry 99 01/18/25 15:05 MDM - Epistaxis MDM Narrative Medical decision making narrative: PATIENT CAME WITH INTERMITTENT NOSE BLEED STARTED 2 DAYS AGO, GOT WORSE TODAY, NO ACTIVE BLEEDING ON ARRIVAL TO THE ED DIFFERENTIAL DIAGNOSIS COAGULOPATHY, THROMBOCYTOPENIA, PICKING ON HIS NOSE, BLOWING HIS NOSE. BLOOD WORKUP TODAY INCLUDES CBC AND COAGS SHOWED HEMOGLOBIN 10.9, PLATELET 225, PT 16.2, PTT 35.0 PATIENT DECLINED NASAL PACKING AND DECIDED TO GO HOME AND TAKE HIS CHANCES. PATIENT WAS ADVISED TO STOP ELIQUIS FOR 1 DAY DISCHARGED ON NEW SYNEPHRINE THE PT WAS DISCHARGED TO HOME.THE PT,S CONDITION UPON DISCHARGE WAS FAIR,EDUCATION WAS PROVIDED TO THE PT IN REFERENCE TO THE FINAL IMPRESSION,DISCHARGE STUDY RESULTS,TREATMENT,PROGNOSIS AND NEED FOR FOLLOW UP . Differential Diagnosis Differential diagnosis: Likely other ( ABOVE) Lab Data 01/18/25 17:41 Labs: Lab Results 01/18/25 Range/Units 17:41 WBC 5.5 (4.5-10.0) K/mm3 RBC 3.73 L (4.6-6.20) M/mm3 Hgb 10.9 L D (14.0-18.0) g/dL Hct 34.2 L (42.0-52.0) % MCV 91.7 (80-100) fl MCH 29.2 (26-34) pg MCHC 31.9 L (32-36) g/dl RDW 14.5 (11.5-14.5) % Plt Count 225 D (150-375) k/mm3 MPV 9.6 (7.4-10.4) fl Immature Gran % (Auto) 0.7 H (0-0.5) % Neut % (Auto) 80.3 H (45.5-73.1) % Lymph % (Auto) 10.2 L (18.3-44.2) % [place] % (Auto) 6.9 (2.6-8.5) % Eos % (Auto) 1.5 (0-4.4) % Baso % (Auto) 0.4 (0.2-1.2) % Lymph # (Auto) 0.56 L (0.9-3.2) K/mm3 [place] # (Auto) 0.4 (0.1-0.6) K/mm3 Eos # (Auto) 0.1 (0-0.3) K/mm3 Baso # (Auto) 0.0 (0.0-0.1) K/mm3 Abs Immat Gran (auto) 0.04 H (0.00-0.031) K/mm3 Absolute Neuts (auto) 4.4 (1.3-6.7) K/mm3 Absolute Nucleated RBC 0.000 (0.0-0.012) K/mm3 Nucleated RBC % 0.0 (0.0-0.2) % PT 16.2 H (11.1-14.7) Seconds INR 1.2 APTT 35.0 (22.3-36.8) Seconds Critical Care Time Critical Care Time Critical Care Time: No Discharge Plan Discharge Clinical Impression: Epistaxis Patient Disposition: Home Condition: Stable Instructions: Nosebleed (ED) Additional Instructions: RETURN IF SYMPTOMS ARE WORSENING , CALL YOUR FAMILY PHYSICIAN FOR APPOINTMENT, TAKE TYLENOL NEEDED FOR ACHES AND PAIN, CONTINUE HOME MEDICATIONS. HOLD ELIQUIS FOR 1 DAY Patient Language: Brazilian Prescriptions: No Action Eliquis 5 mg Tablet 5 mg PO Q12HR Qty: 30 0RF doxycycline hyclate 100 mg Tablet 100 mg PO Q12HR Qty: 6 0RF Jardiance 10 mg Tablet 10 mg PO DAILY Qty: 30 0RF spironolactone 25 mg Tablet 25 mg PO QAM Qty: 30 0RF Entresto 49-51 mg tablet 1 tablet PO BID metoprolol succinate [Toprol XL] 200 mg tablet extended release 24 hr 200 mg PO DAILY aspirin 81 mg capsule 81 mg PO DAILY Qty: 90 3RF atorvastatin [Lipitor] 80 mg tablet 80 mg PO DAILY Qty: 90 3RF furosemide 40 mg Tablet 20 mg PO DAILY Qty: 30 0RF amiodarone 200 mg tablet 200 mg PO Q12H clopidogrel 75 mg tablet 75 mg PO DAILY atorvastatin 10 mg tablet 10 mg PO QPM methocarbamol 500 mg tablet 500 mg PO Q8H oxycodone 10 mg tablet 10 mg PO Q4-6H Follow-up/Referrals: Cora,Rj Hodges MD [Primary Care Provider] -
--- OUTSIDE RECORDS SUMMARY | 2025-01-18 16:13 | XMS_ITS | Encounter Summary ---
Author Organization [facility] Address [address] [place] [address] Phone Care Team Providers Care Cognos Administrator Name Role Phone Rj Shepherd MD Primary Care Provider [phone] Forrest Meyer MD Unavailable Vivek Chew APRN, CNP Unavailable [phone] Jeffery Iverson MD Unavailable Reason for Visit * Reason Comments Medication Refill Encounter Details Date Type Department Care Team (Late st Contact Info) Description 06/10/2021 [facility]ill [facility] - [facility] - [place] [address] [place] [address] Rj Shepherd MD [address] [place] [address] Medication Refill Social History Tobacco [...] 01/21/2025 1:00 AM CDT Home Care Visit [address] [address] Natalie Dobbins, RN [place] 01/22/2025 2:00 PM CDT Home Care Visit [address] [address] Maggy Miranda, BOUNTY TRAPPER 01/23/2025 1:00 AM CDT Home Care Visit [address] [address] Natalie Dobbins, [place] 01/24/2025 2:30 PM CDT Home Care Visit [address] [address] Maggy Miranda, BOUNTY TRAPPER 01/27/2025 2:30 PM CDT Home Care Visit [address] [address] Maggy Miranda, BOUNTY TRAPPER 01/28/2025 1:00 AM CDT Home Care Visit [address] [address] Natalie Dobbins, RN [place] 01/29/2025 1:00 AM CDT Home Care Visit [address] [address] Miriam Jackson PT [place] 02/04/2025 1:00 AM CDT Home Care Visit [address] [address] Natalie Dobbins, [place] 09/22/2025 10:30 AM MACHINING ASSOCIATE Office Visit [facility] - Primary Care - [place] [address] [place] [address] Rj Shepherd MD [address] [place] [address] documented as of this encounter Visit Diagnoses Not on filedocumented in this encounter Additional Health Concerns Assessment Noted Time PHQ-9 Depression Total Score: 0 10/04/19 20 9:00 AM MACHINING ASSOCIATE documented as of this encounter Care Teams Cognos Administrator Relationship Specialty Start Date End Date Rj Shepherd MD [address] [place] [address] PCP - General Internal Medicine 09/30/15 Forrest Meyer MD #2 [facility], [address] [address] Consulting Physician Urological Surgery 05/04/22 Vivek Chew APRN, GED INSTRUCTOR #2 [place] [address] Nurse Practitioner Urology 03/31/22 Jeffery Iverson MD [address] [facility] [address] [place] [address] Consulting Physician Cardiology 08/05/24 documented as of this encounter
--- OUTSIDE RECORDS SUMMARY | 2025-01-18 16:13 | XMS_ITS | Encounter Summary ---
Author Organization [facility] Address [address] [place] [address] Phone Care Team Providers Care Admitting Supervisor Name Role Phone Rj Shepherd MD Primary Care Provider [phone] Forrest Meyer MD Unavailable Vivek Chew APRN, CNP Unavailable [phone] Jeffery Iverson MD Unavailable Reason for Visit * Reason Comments Medication Refill Encounter Details Date Type Department Care Team (Late st Contact Info) Description 10/05/2023 [facility]ill [facility] - [place] [address] [place] [address] Rj Shepherd MD [address] [place] [address] Medication Refill Social History Tobacco [...] AM CST Refill requested too soon. TTING SUPERVISOR documented in this encounter Plan of Treatment Upcoming Encounters Date Type Department Care Team (Late st Contact Info) Description 01/21/2025 1:00 AM CDT Home Care Visit [address] [address] Natalie Dobbins, RN [place] 01/22/2025 2:00 PM CDT Home Care Visit [address] [address] Maggy Miranda, BLOW DOWN HELPER 01/23/2025 1:00 AM CDT Home Care Visit [address] [address] Natalie Dobbins, RN [place] 01/24/2025 2:30 PM CDT Home Care Visit [address] [address] Maggy Miranda, BLOW DOWN HELPER 01/27/2025 2:30 PM CDT Home Care Visit [address] [address] Maggy Miranda, BLOW DOWN HELPER 01/28/2025 1:00 AM CDT Home Care Visit [address] [address] Natalie Dobbins, RN [place] 01/29/2025 1:00 AM CDT Home Care Visit [address] [address] Miriam Jackson PT [place] 02/04/2025 1:00 AM CDT Home Care Visit [address] [address] Natalie Dobbins, [place] 09/22/2025 10:30 AM ADMITTING SUPERVISOR Office Visit [facility] - Primary Care - [place] [address] [place] [address] Rj Shepherd MD [address] [place] [address] documented as of this encounter Visit Diagnoses Not on filedocumented in this encounter Additional Health Concerns Assessment Noted Time PHQ-9 Depression Total Score: 0 09/05/19 24 7:56 AM ADMITTING SUPERVISOR documented as of this encounter Care Teams Admitting Supervisor Relationship Specialty Start Date End Date Rj Shepherd MD [address] [place] [address] PCP - General Internal Medicine 09/30/15 Forrest Meyer MD #2 [facility], [address] [address] Consulting Physician Urological Surgery 05/04/22 Vivek Chew APRN, COURSE DEVELOPER #2 [place] [address] Nurse Practitioner Urology 03/31/22 Jeffery Iverson MD [address] [facility] [address] [place], [place] [address] Consulting Physician Cardiology 08/05/24 documented as of this encounter
--- OUTSIDE RECORDS SUMMARY | 2025-01-18 16:13 | XMS_ITS | Encounter Summary ---
Author Organization [facility] Address [address] [place] [address] Phone Care Team Providers Care Contact Lens Inspector Name Role Phone Rj Shepherd MD Primary Care Provider [phone] Forrest Meyer MD Unavailable Vivek Chew APRN, CNP Unavailable [phone] Jeffery Iverson MD Unavailable Reason for Visit * Reason Comments Medication Refill Encounter Details Date Type Department Care Team (Late st Contact Info) Description 03/09/2023 Refill [facility] Primary Care - [place] [address] [place] [address] Rj Shepherd MD [address] [place] [address] Medication Refill Social History Tobacco [...] 01/21/2025 1:00 AM CDT Home Care Visit [address] [address] Natalie Dobbins, RN [place] 01/22/2025 2:00 PM CDT Home Care Visit [address] [address] Maggy Miranda, DELIVERY SPECIALIST 01/23/2025 1:00 AM CDT Home Care Visit [address] [address] Natalie Dobbins, [place] 01/24/2025 2:30 PM CDT Home Care Visit [address] [address] Maggy Miranda, DELIVERY SPECIALIST 01/27/2025 2:30 PM CDT Home Care Visit [address] [address] Maggy Miranda, DELIVERY SPECIALIST 01/28/2025 1:00 AM CDT Home Care Visit [address] [address] Natalie Dobbins, RN [place] 01/29/2025 1:00 AM CDT Home Care Visit [address] [address] Miriam Jackson, [place] 02/04/2025 1:00 AM CDT Home Care Visit [address] [address] Natalie Dobbins, RN [place] 09/22/2025 10:30 AM JEWEL BEARING FACER Office Visit [facility] - Primary Care - [address] [place] [address] Rj Shepherd MD [address] [place] [address] documented as of this encounter Visit Diagnoses Not on filedocumented in this encounter Additional Health Concerns Assessment Noted Time PHQ-9 Depression Total Score: 0 10/04/19 20 9:00 AM JEWEL BEARING FACER documented as of this encounter Care Teams Contact Lens Inspector Relationship Specialty Start Date End Date Rj Shepherd MD [address] [place] [address] PCP - General Internal Medicine 09/30/15 Forrest Meyer MD #[address] [address] Consulting Physician Urological Surgery 05/04/22 Vivek Chew APRN, ROZ #2 [place] [address] Nurse Practitioner Urology 03/31/22 Jeffery Iverson MD [address] [facility] [address] [place], [place] [id number] Consulting Physician Cardiology 08/05/24 documented as of this encounter
--- OUTSIDE RECORDS SUMMARY | 2025-01-18 16:14 | XMS_ITS | Encounter Summary ---
Author Organization [facility] Address [address] [place] [address] Phone Care Team Providers Care Nanofabrication Specialist Name Role Phone Rj Shepherd MD Primary Care Provider [phone] Forrest Meyer MD Unavailable Vivek Chew APRN, CNP Unavailable [phone] Jeffery Iverson MD Unavailable Reason for Visit * Reason Comments Medication Refill Encounter Details Date Type Department Care Team (Late st Contact Info) Description 10/29/2023 Refill [facility] Primary Care - [place] [address] [place] [address] Rj Shepherd MD [address] [place] [address] Medication Refill Social History Tobacco [...] AM CST Medication([facility]) [facility] Med[facility] Refill Standing Order for Pediatricand [...] Dept 09/05/23 Office Visit Rj Shepherd MD [facility] Showing recent visits within past 365 days and meeting all other requirements Future Appointments No visits were found meeting these conditions. Showing future appointments within next 90 days and meeting all other requirements Passed - GFR on record in past 12 months GFR, EST. NONAFRICAN Date Value Ref Range Status 09/05/2023 >60 >=60 Final [facility] documented in this encounter Plan of Treatment Upcoming Encounters Date Type Department Care Team (Late st Contact Info) Description 01/21/2025 1:00 AM CDT Home Care Visit [address] [address] Natalie Dobbins, RN [place] 01/22/2025 2:00 PM CDT Home Care Visit [address] [address] Maggy Miranda PTA 01/23/2025 1:00 AM CDT Home Care Visit [address] [address] Natalie Dobbins, [place] 01/24/2025 2:30 PM CDT Home Care Visit [address] [address] Maggy Miranda, CUTCH CLEANER 01/27/2025 2:30 PM CDT Home Care Visit [address] [address] Maggy Miranda, CUTCH CLEANER 01/28/2025 1:00 AM CDT Home Care Visit [address] [address] Natalie Dobbins, [place] 01/29/2025 1:00 AM CDT Home Care Visit [address] [address] Miriam Jackson PT [place] 02/04/2025 1:00 AM CDT Home Care Visit [address] [address] Natalie Dobbins, [place] 09/22/2025 10:30 AM [facility] Office Visit [facility] - Primary Care - [place] [address] [place] [address] Rj Shepherd MD [address] [place] [address] documented as of this encounter Visit Diagnoses Not on filedocumented in this encounter Additional Health Concerns Assessment Noted Time PHQ-9 Depression Total Score: 0 09/05/19 24 7:56 AM [facility] documented as of this encounter Care Teams Nanofabrication Specialist Relationship Specialty Start Date End Date Rj Shepherd MD [address] [place] [address] PCP - General Internal Medicine 09/30/15 Forrest Meyer MD #[address] [address] Consulting Physician Urological Surgery 05/04/22 Vivek Chew APRN, POWER LINE LINEMAN #2 [place] [address] Nurse Practitioner Urology 03/31/22 Jeffery Iverson MD 6810 [facility] [address] [place] [address] Consulting Physician Cardiology 08/05/24 documented as of this encounter
--- OUTSIDE RECORDS SUMMARY | 2025-01-18 16:14 | XMS_ITS | Clinical Summary ---
Author Organization [facility] Address [address] [place] [address] Phone Care Team Providers Care Billboard Installer Name Role Phone Rj Shepherd MD Primary Care Provider [phone] Forrest Meyer MD Unavailable Vivek Chew APRN, NET APPLICATION SUPPORT SPECIALIST Unavailable [phone] Jeffery Iverson MD Unavailable Allergies Active Allergy [...] severe pain. Active polyethylene glycol (MiraLax Mix-In [place]) 17 g Pack Take 17 g by [...] 1:30 PM CDT Home Care Visit [facility] [address] [place] [address] Maggy Miranda PTA PT - HOME VISIT 01/16/2025 1:00 PM CDT Home Care Visit [address] [address] Ermelinda Rizvi LPN SN - HOME VISIT 01/15/2025 1:50 PM CDT Lab [facility] - [address] [phone] Lab, [address] S/P CABG x 3; Panlobular emphysema (HCC); Urge urinary incontinence Discharge Disposition: Discharged to home or Selfcare 01/15/2025 11:15 AM CDT Office Visit [facility] - [place] [address] [place] [address] Rj Shepherd MD Arteriosclerosis of coronary artery (Primary Dx); S/P CABG x 3; Panlobular emphysema (HCC); HFrEF (heart failure with reduced ejection fraction) (HCC); Urge urinary incontinence Discharge Disposition: Discharged to home or Selfcare 01/15/2025 Results Follow-Up [facility] - [address] [place] [address] Rj Shepherd MD URINALYSIS REFLEX IF INDICATED BY ABNORMAL RESULTS, CBC WITH AUTO DIFFERENTIAL 01/15/2025 Travel 01/14/2025 12:30 PM CDT Home Care Visit [address] [address] Natalie Dobbins, RN SN - HOME VISIT 01/14/2025 10:00 AM CDT Home Care Visit [address] [address] [place] Block OT OT - INITIAL EVALUATION 01/13/2025 9:30 AM CDT Home Care Visit [address] [address] Miriam Jackson, PT PT - INITIAL EVALUATION 01/12/2025 [facility] [address] [place] [address] 01/10/2025 1:30 PM CDT [facility] [address] [place] [address] Natalie Dobbins RN SN - OASIS START [...] 01/21/2025 1:00 AM CDT Home Care Visit [address] [address] Natalie Dobbins, RN [place] 01/22/2025 2:00 PM CDT Home Care Visit [address] [address] Maggy Miranda, CHURN DRILL OPERATOR 01/23/2025 1:00 AM CDT Home Care Visit [address] [address] Natalie Dobbins, RN [place] 01/24/2025 2:30 PM CDT Home Care Visit [address] [address] Maggy Miranda, CHURN DRILL OPERATOR 01/27/2025 2:30 PM CDT Home Care Visit [address] [address] Maggy Miranda, CHURN DRILL OPERATOR 01/28/2025 1:00 AM CDT Home Care Visit [address] [address] Natalie Dobbins, RN [place] 01/29/2025 1:00 AM CDT Home Care Visit [address] [address] Miriam Jackson PT [place] 02/04/2025 1:00 AM CDT Home Care Visit [address] [address] Natalie Dobbins, RN [place] 09/22/2025 10:30 AM CAGER OPERATOR Office Visit [facility] - Primary Care - [place] [address] [place] [address] Rj Shepherd MD [address] [place] [address] Health Maintenance Due Date Last Done Comments [...] HEPATITIS C ANTIBODY Routine 09/05/2023 8:15 AM CAGER OPERATOR Encounter for hepatitis C screening test for low risk patient STOOL, OCCULT BLOOD IMMUNOASSAY (IFOB) Routine 06/05/2019 Screen for colon cancer from Last 3 Months or Most Recently Relevant to Health Maintenance Results * (ABNORMAL) URINALYSIS REFLEX IF INDICATED BY ABNORMAL RESULTS (01/15/2025 12:06 PM CDT) Pathologist [facility] SPECIFIC GRAVITY 1.015 1.003 - 1.030 01/15/2025 4:06 PM CDT [facility] URINE PH 5.0 5.0 - 9.0 01/15/2025 4:06 PM CDT [facility] WBC ESTERASE Negative Negative 01/15/2025 4:06 PM CDT [facility] NITRITE Negative Negative 01/15/2025 4:06 PM CDT [facility] PROTEIN, RANDOM URINE 15 mg/dL(A) Negative 01/15/2025 4:06 PM CDT [facility] URINE GLUCOSE, QUAL 1000 mg/dL(A) Negative 01/15/2025 4:06 PM CDT [facility] URINE KETONES Negative Negative 01/15/2025 4:06 PM CDT [facility] UROBILINOGEN Normal Normal mg/dL 01/15/2025 4:[address] [facility] URINE BLOOD Negative Negative adolfo/ul 01/15/2025 4:06 PM CDT [facility] URINALYSIS COLOR Yellow 01/15/2025 4:06 PM CDT [facility] URINALYSIS CLARITY Clear 01/15/2025 4:[address] [facility] WBC (Urine) 0-5 Negative, 0-5 /hpf 01/15/2025 4:06 PM CDT [facility] URINE RBC'S 0-2 Negative, 0-2 /hpf 01/15/2025 4:06 PM CDT [facility] EPITHELIAL CELLS Occasional /lpf 01/15/2025 4:06 PM CDT [facility] BACTERIA, URINE Negative Negative /hpf 01/15/2025 4:06 PM CDT [facility] Urine URINE SPECIMEN OBTAINED BY CLEAN CATCH PROCEDURE / Unknown Non-Phlebotomy Collection / Unknown 01/15/2025 12:06 PM CDT 01/15/2025 12:06 PM CDT us Rj Shepherd MD URINE ORDERABLES Final Re sult [facility] [address] [place] [address] * (ABNORMAL) CBC WITH AUTO DIFFERENTIAL (01/15/2025 12:00 PM CDT) WBC 6.76 4.00 - 12.00 10(3)/mcL 01/15/2025 3:26 PM CDT [facility] RBC 3.92(L) 4.40 - 5.80 10(6)/mcL 01/15/2025 3:26 PM CDT [facility] HEMOGLOBIN (HGB) 11.8(L) 13.0 - 16.5 g/dL 01/15/2025 3:26 PM CDT [facility] HEMATOCRIT (HCT) 36.3(L) 38.0 - 50.0 % 01/15/2025 3:26 PM CDT [facility] MCV 92.6 82.0 - 96.0 fL 01/15/2025 3:26 PM CDT [facility] MCH 30.1 26.0 - 32.0 pg 01/15/2025 3:26 PM CDT [facility] MCHC 32.5 31.0 - 36.0 g/dL 01/15/2025 3:26 PM CDT [facility] PLATELET COUNT 301 140 - 440 10(3)/[facility] 01/15/2025 3:26 PM CDT [facility] RDW 14.4 11.8 - 15.5 % 01/15/2025 3:26 PM CDT [facility] MPV 10.1 8.0 - 12.6 fL 01/15/2025 3:26 PM CDT [facility] NEUTROPHILS 81.1(H) 40.0 - 68.0 % 01/15/2025 3:26 PM CDT [facility] LYMPHOCYTES 9.2(L) 19.0 - 49.0 % 01/15/2025 3:26 PM CDT [facility] MONOCYTES 7.5 3.0 - 13.0 % 01/15/2025 3:26 PM CDT [facility] EOSINOPHILS 1.8 0.0 - 8.0 % 01/15/2025 3:26 PM CDT [facility] BASOPHILS 0.4 0.0 - 1.0 % 01/15/2025 3:26 PM CDT [facility] ABSOLUTE NEUTROPHILS 5.48(H) 1.40 - 5.30 10(3)/mcL 01/15/2025 3:[address] [facility] ABSOLUTE LYMPHOCYTES 0.62(L) 0.90 - 3.30 10(3)/[facility] 01/15/2025 3:26 PM CDT [facility] ABSOLUTE MONOCYTES 0.51 0.10 - 0.90 10(3)/mcL 01/15/2025 3:26 PM CDT [facility] ABSOLUTE EOSINOPHIL 0.12 0.00 - 0.50 10(3)/[facility] 01/15/2025 3:26 PM CDT [facility] ABSOLUTE BASOPHILS 0.03 0.00 - 0.10 10(3)/[facility] 01/15/2025 3:26 PM CDT [facility] NRBC PER 100 WBC 0 01/16/20 3:26 PM CDT [facility] Blood Venipuncture / Unknown 01/15/2025 12:00 PM CDT 01/15/2025 12:00 PM CDT us Rj Shepherd MD HEMATOLOGY ORDERABLES Fin al Result Performing Organization Address City/[facility] [address] [facility] Co de Phone Number [facility] [address] [place] [address] * CARDIOLOGY CONSULT (11/19/2024 12:00 AM CDT) 11/19/2024 us Provider Scan GENERIC SCAN ORDERS CONSULT Jazmín rangel Result Performing Organization Address [facility] Co de Phone Number SCAN * CARDIOLOGY PROCEDURE (11/19/2024 12:00 AM CDT) Anatomical Region Laterality Modality Other 11/19/2024 us Provider Scan CV PROCEDURES SCHED Final Result * LIPID PANEL (11/19/2024 12:00 AM CDT) CHOLESTEROL 173 SCAN HDL CHOLESTEROL 41 SCAN LDL 110 SCAN 11/19/2024 us Provider Scan CHEMISTRY ORDERABLES Final Resul t Performing Organization Address City/[facility] [address]/[facility] Co de Phone Number SCAN * COMPLETE BLOOD COUNT (CBC) WITH DIFF (11/19/2024 12:00 AM CDT) 11/19/2024 us Provider Scan HEMATOLOGY ORDERABLES Final Resu lt Performing Organization Address City/[facility] [address]/[facility] Co de Phone Number SCAN * BASIC METABOLIC PANEL W/ CALCIUM TOTAL (11/19/2024 12:00 AM CDT) 11/19/2024 us Provider Scan CHEMISTRY ORDERABLES Final Resul t SCAN * HEPATITIS C ANTIBODY (09/05/2023 8:15 AM CAGER OPERATOR) hepatitis C antibody 0.10 <1 S/CO [facility] ARCH [id number] 09/05/2023 9:50 PM CAGER OPERATOR [facility] Comment: Signal/Cutoff ratio < 0.79 is Nondetected Signal/Cutoff ratio 0.80-0.99 is Grayzone Signal/Cutoff ratio > 0.99 is Detected Supplemental assays are recommended if signal/cutoff ratio is >/=1.00. Signal/cutoff ratio result >/= 5.00 is 97% predictive of positivity for recombinant immunoblot assay (RIBA) and will be reported to the [place] Department of Public Health as required. Blood Venipuncture / Unknown 09/05/2023 8:15 AM CAGER OPERATOR 09/05/2023 8:15 AM CAGER OPERATOR Rj Shepherd MD CHEMISTRY ORDERABLES Jazmín l Result Performing Organization Address City/[facility] [address] [facility]/ZIP Co de Phone Number [facility] [address] [place] [address], * STOOL, OCCULT BLOOD IMMUNOASSAY (IFOB) (06/05/2019) Specimen of unknown material (specimen) STOOL SPECIMEN / Unknown Rj Shepherd MD BODY FLUIDS & STOOLS INGE FLOR Final Result from Last 3 Months or Most Recently Relevant to Health Maintenance Insurance MEDICARE C [employer] [facility] [place] [id number] Advance Directives * Full Code (Latest Code Status on File) Date Activated Date Inactivated Comments 01/13/2025 11:30 PM Care Teams Billboard Installer Relationship Specialty Start Date End Date Rj Shepherd MD [address] [place] [address] PCP - General Internal Medicine 09/30/15 Forrest Meyer MD #[address] [address] Consulting Physician Urological Surgery 05/04/22 Vivek Chew, SCREW MACHINE SET UP OPERATOR TOOL, NET APPLICATION SUPPORT SPECIALIST [address] [place] [address] Nurse Practitioner Urology 03/31/22 Jeffery Iverson MD [address] [facility] [address] [place] [address] Consulting Physician Cardiology 08/05/24
--- OUTSIDE RECORDS SUMMARY | 2025-01-18 16:15 | XMS_ITS | Encounter Summary ---
Author Organization [facility] Healthcare Address [address] [place] [address] Care Team Providers Care Label Drier Name Role Phone Rj Shepherd MD Primary Care Provider + Angel Gonzalez MD Unavailable [phone] Padmaja Louis NP Unavailable [phone] Encounter Details Date Type Department Care Team (Late st Contact Info) Description 01/16/2025 Telephone [facility] Cardiology [address] [place] [address] Jeffery Iverson MD [address] [address] Social History Tobacco Use Types [...] on file Legal Sex Male 12:48 PM CUSTOMS AND BORDER PROTECTION INSPECTOR Gender Identity Not on file Sexual Orientation [...] on filedocumented in this encounter Care Teams Label Drier Relationship Specialty Start Date End Date Rj Shepherd MD [address] [place] [address] PCP - General Internal Medicine 07/23/24 Angel Gonzalez MD 2 [facility] [place] [address] Surgeon Cardiothoracic Surgery 01/08/25 Padmaja Louis NP [address] [address] Nurse Practitioner Cardiovascular Disease 01/08/25 documented as of this encounter
--- OUTSIDE RECORDS SUMMARY | 2025-01-18 16:15 | XMS_ITS | Referral Summary ---
Author Organization [facility] [address] [place] [address] 162 Address [address] [place] [address] Care Team Providers Care Cupola Tender Helper Name Role Phone Rj Shepherd MD Primary Care Provider + Angel Gonzalez MD Unavailable [phone] Padmaja Louis NP Unavailable [phone] Encounters Date Type Department Care Team Description 01/16/[address] [facility] Medical Group Cardiology [address] [facility] [address] [place] [address] Gustavo Iverson MD 12/30/2024 6:05 AM CDT - 01/08/2025 4:09 PM CDT Hospital Encounter [address] [address] Angel Gonzalez MD Coronary artery disease (CAD) excluded (Primary Dx); Coronary artery disease of [place] heart with stable angina pectoris, unspecified vessel or lesion type Discharge Disposition: Discharge to home, home health skilled care 12/30/2024 7:15 AM CDT Ancillary Procedure [facility] Operating Room [address] [place] [address] 12/30/2024 8:00 AM CDT - 12/30/2024 2:00 PM CDT Surgery [facility] Operating Room [address] [place] [address] Angel Gonzalez MD CABG X3, Encompass Clamp, DAI, LEFT UPPER LOBE WEDGE RESECTION OF BLEB/360min 12/30/2024 8:05 AM CDT Anesthesia Event [facility] Operating Room [address] [place] [address] Candelaria Resendez DO Eldin, Ali S., MD 12/24/2024 9:41 AM CDT - 12/24/2024 11:59 PM CDT Hospital Encounter [facility] Respiratory [address] [place] [address] 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 Discharge Disposition: Discharge to home or self care 12/18/2024 11:25 AM CDT - 12/18/2024 11:59 PM CDT Hospital Encounter [facility] Diagnostic Imaging [address] [place] [address] Discharge Disposition: Discharge to home or self care 12/18/2024 9:40 AM CDT - 12/18/2024 11:59 PM CDT Hospital Encounter [facility] Vascular Lab [address] [place] [address] 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; Other chest pain Discharge Disposition: Discharge to home or self care 12/18/2024 10:45 AM CDT Pre-Admission Testing [facility] Pre Anesthesia Testing [address] [place] [address] Coronary artery disease of [place] heart with stable angina pectoris, unspecified vessel or lesion type; Shortness of breath 12/18/2024 9:11 AM CDT - 12/18/2024 11:59 PM CDT Hospital Encounter [facility] Imaging and Radiology [address] [place] [address] 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 Discharge Disposition: Discharge to home or self care 12/10/2024 Orders Only [facility] Surgery [address] [place] [address] [address] [place] [address] Angel Gonzalez MD 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 (Primary Dx); Other chest pain 12/10/2024 Orders Only [facility] Surgery [address] [facility] [address] [place] [address] Angel Gonzalez MD 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 (Primary Dx) 12/10/2024 2:00 PM CDT Office Visit [facility] Surgery [address] [facility] [address] [place] [address] Angel Gonzalez MD 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 (Primary Dx); Heart failure with reduced ejection fraction (HCC); Coronary artery disease involving [place] coronary artery of [place] heart, unspecified whether angina present 12/04/2024 11:15 AM CDT Office [address] [facility] Medical Group Cardiology at [address] [place] [phone] Gustavo Iverson MD 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 (Primary Dx); Heart failure with reduced ejection fraction (HCC); Primary hypertension; Paroxysmal atrial fibrillation (HCC); Mixed hyperlipidemia 11/26/[address] [facility] Medical Group Cardiology [address] [place] [address] [place] [phone] Gustavo Iverson MD 11/19/2024 Orders Only [facility] Health Information Management [address] [place] [address] Gustavo Iverson MD 11/07/2024 Telephone [facility] Cardiology [address] [place] [address] [place] [phone] Gustavo Iverson MD 11/07/2024 Results Follow-Up [facility] Cardiology [address] [place] [address] [place] [phone] Gustavo Iverson MD Transthoracic Echo (TTE) Complete W Doppler/CF 11/07/2024 9:15 AM CDT Ancillary Procedure [facility] Cardiology [address] [place] [address] 162 [address] [place] [address] Heart failure with reduced ejection fraction (HCC) [...] Arthritis 12/10/2024 Coronary artery disease invo [place]ving [place] coronary artery of [place] heart without angina pectoris 12/04/2024 Mixed hyperlipidemia [...] on file Legal Sex Male 12:48 PM TRAINING INTERN Gender Identity Not on file Sexual Orientation [...] on file Medical Devices Implanted Type Area Child Support Officer Device Identifier Shelf Expiration Date Model / Serial / Lot Atricure Clip Closure Exclusion System Preloaded Standard Left Atrial Appendage Atriclip 40mm [id number] - [id number] Implanted:Qty: 1 on 12/30/2024 by Angel Gonzalez MD at [facility] Clip Left: Atrial Appendage Atricure 10/26/2026 [id number] / [id number] Procedures Procedure Name Priority Date/Time Associated Diagnosis [...] 4:59 PM CDT Coronary artery disease of [place] heart with stable angina pectoris, unspecified vessel [...] 10:47 AM CDT Coronary artery disease of [place] heart with stable angina pectoris, unspecified vessel [...] LINE PLACEMENT Routine 12/30/2024 9:12 AM CDT WV AN ELECTIVE ENDOTRACHEAL AIRWAY Routine 12/30/2024 9:11 AM CDT POC BLOOD GAS AND CHEMISTRIES, ARTERIAL Routine 12/30/2024 8:54 AM CDT POCT ACTIVATED CLOTTING TIME, HIGH RANGE Routine 12/30/2024 8:51 AM CDT CORONARY ARTERY BYPASS GRAFT - INTERNAL MAMMARY ARTERY 12/30/2024 8:04 AM CDT Coronary artery disease of [place] heart with stable angina pectoris, unspecified vessel [...] 10:23 AM CDT 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 US VEIN MAPPING DUPLEX LOWER EXTREMITY BILATERAL Schedule Routine, Read Routine (OP Routine) 12/18/2024 1:30 PM CDT 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 Other chest pain EGFR Routine 12/18/2024 12:06 PM CDT Coronary artery disease of [place] heart with stable angina pectoris, unspecified vessel or lesion type BASIC METABOLIC PANEL Routine 12/18/2024 12:06 PM CDT Coronary artery disease of [place] heart with stable angina pectoris, unspecified vessel or lesion type PROTIME-INR Routine 12/18/2024 12:05 PM CDT Coronary artery disease of [place] heart with stable angina pectoris, unspecified vessel or lesion type APTT Routine 12/18/2024 12:05 PM CDT Coronary artery disease of [place] heart with stable angina pectoris, unspecified vessel or lesion type Shortness of breath CBC WITHOUT DIFFERENTIAL Routine 12/18/2024 12:05 PM CDT Coronary artery disease of [place] heart with stable angina pectoris, unspecified vessel or lesion type TYPE AND SCREEN Routine 12/18/2024 11:54 AM CDT Coronary artery disease of [place] heart with stable angina pectoris, unspecified vessel or lesion type URINALYSIS AND REFLEX TO MICROSCOPIC AND CULTURE Routine 12/18/2024 11:54 AM CDT Coronary artery disease of [place] heart with stable angina pectoris, unspecified vessel or lesion type ECG 12-LEAD Routine 12/18/2024 11:49 AM CDT Coronary artery disease of [place] heart with stable angina pectoris, unspecified vessel or lesion type XR CHEST PA LATERAL 2 VIEWS Schedule Routine, Read Routine (OP Routine) 12/18/2024 11:35 AM CDT Coronary artery disease of [place] heart with stable angina pectoris, unspecified vessel or lesion type CT CHEST WO CONTRAST Schedule Routine, Read Routine (OP Routine) 12/18/2024 9:31 AM CDT 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 CARDIOLOGY DOCUMENT SCAN [...] 130 70 - 199 mg/dL POC Performer [id number] ARON BHAT Blood 01/08/2025 12:0 3 PM CDT 01/08/2025 12:03 PM CDT us Angel Gonzalez MD LAB POCT ORDERABLES - DEVICE Final Result ARON BHAT [address] [address] [place] [address] * XR Chest PA Lateral 2 Views [...] active infiltrate. The tip of a retracted Zion-Maryanne catheter is in the superior vena cava. [...] active infiltrate. The tip of a retracted Zion-Maryanne catheter is in the superior vena cava. IMPRESSION: No failure. Electronically signed by: Sangeeta Harmon M.D. us Jessica Kimble INTELLIGENCE GROUP SUPERVISOR IMG XR PROCEDURES Final Re sult * POCT glucose (01/08/2025 7:49 AM CDT) Glucose, POC 132 70 - 199 mg/dL POC Performer [id number] ARON BHAT Blood 01/08/2025 7:49 AM CDT 01/08/2025 7:49 AM CDT Angel Gonzalez MD LAB POCT ORDERABLES - DEVICE Final Result ARON [address] [address] Department of Laboratories [place] [phone] * eGFR (01/08/2025 5:36 AM CDT) eGFR [...] 01/08/2025 5:53 AM CDT us Maureen Martinez INTELLIGENCE GROUP SUPERVISOR LAB BLOOD ORDERABLES Fin al Result Performing Organization Address [facility] Co de Phone Number ARON BHAT [address] [address] [place] [address] * POCT glucose (01/08/2025 5:36 AM CDT) Pathologist [facility] Glucose, POC 163 70 - 199 mg/dL POC Performer [id number] [facility] Blood 01/08/2025 5:36 AM CDT 01/08/2025 5:36 AM CDT Angel Gonzalez MD LAB POCT ORDERABLES - DEVICE Final Result Performing Organization Address [facility] Co de Phone Number ARON BHAT [address] [address] [place] [address] * (ABNORMAL) CBC without differential (01/08/2025 5:36 AM CDT) [facility] WBC 4.62 3.80 - 9.90 K/cumm Hgb 9.3(L) 13.0 - 17.5 g/dL [facility] Hct 28.7(L) 38.9 - 50.3 % [facility] Plt 125(L) 150 - 400 K/cumm [facility] MPV 10.9 9.1 - 12.3 fL [facility] RBC 3.15(L) 4.30 - 5.80 M/cumm [facility] MCV 91.1 81.3 - 96.4 fL [facility] MCH 29.5 27.1 - 33.3 pg [facility] MCHC 32.4 32.3 - 35.7 g/dL [facility] RDW CV 14.1 11.1 - 14.9 % [facility] RDW SD 46.5 35.7 - 48.1 fL [facility] NRBC abs 0.00 0.00 - 0.01 K/cumm [facility] Blood 01/08/2025 5:36 AM CDT 01/08/2025 5:54 AM CDT Maureen Martinez NP LAB BLOOD ORDERABLES Fin al Result [facility] [address] [address] [place] [address] * (ABNORMAL) Renal function panel (01/08/2025 5:36 AM CDT) Sodium 137 135 - 145 mmol/L Potassium, pl 3.8 3.3 - 4.9 mmol/L C[facility] Chloride 98 97 - 110 mmol/L [facility] CH CO2 28 22 - 32 mmol/L [facility] Anion gap 11 2 - 15 mmol/L [facility] BUN 33(H) 6 - 25 mg/dL [facility] Creatinine 1.17 0.80 - 1.30 mg/dL [facility] Albumin 3.2(L) 3.5 - 5.0 g/dL [facility] Blood 01/08/2025 5:36 AM CDT 01/08/2025 5:53 AM CDT Maureen Carmen Michelle INTELLIGENCE GROUP SUPERVISOR LAB BLOOD ORDERABLES Fin al Result Performing Organization Address City/[facility]/ZIP Co de Phone Number ARON BHAT [address] [address] [facility] [place] [address] * POCT glucose (01/07/2025 11:58 PM CDT) Glucose, POC 139 70 - 199 mg/dL POC Performer [id number] [facility] CH Blood 01/07/2025 11:5 8 PM CDT 01/07/2025 11:58 PM CDT Angel Gonzalez MD LAB POCT ORDERABLES - DEVICE Final Result Performing Organization Address [facility] Co de Phone Number ARON BHAT [address] [address] [facility] [place] [address] * POCT glucose (01/07/2025 8:43 PM CDT) Glucose, POC 167 70 - 199 mg/dL POC Performer [id number] [facility] CH Blood 01/07/2025 8:43 PM CDT 01/07/2025 8:43 PM CDT Angel Gonzalez MD LAB POCT ORDERABLES - DEVICE Final Result Performing Organization Address [facility] Co de Phone Number LETIBERTO BHAT [address] Kay[address] [facility] [place] [address] * POCT glucose (01/07/2025 5:14 PM CDT) Glucose, POC 168 70 - 199 mg/dL POC Performer [id number] [facility] CH Blood 01/07/2025 5:14 PM CDT 01/07/2025 5:14 PM CDT Angel Gonzalez MD LAB POCT ORDERABLES - DEVICE Final Result Performing Organization Address City/[facility]/ZIP Co de Phone Number ARON BHAT [address] [address] Valdez [place] [address] * POCT glucose (01/07/2025 12:27 PM CDT) Glucose, POC 127 70 - 199 mg/dL POC Performer [id number] [facility] Blood 01/07/2025 12:2 7 PM CDT 01/07/2025 12:27 PM CDT Angel Gonzalez MD LAB POCT ORDERABLES - DEVICE Final Result Performing Organization Address [facility] de Phone Number ARON BHAT [address] [address] [place] [address] * POCT glucose (01/07/2025 7:38 AM CDT) Glucose, POC 150 70 - 199 mg/dL POC Performer [id number] [facility] Blood 01/07/2025 7:38 AM CDT 01/07/2025 7:38 AM CDT Angel Gonzalez MD LAB POCT ORDERABLES - DEVICE Final Result Performing Organization Address [facility] Phone Number ARON BHAT [address] [address] [facility] [place] [address] * XR Chest 1 View - Portable [...] consolidation. The distal tip of the retracted Zion-Maryanne catheter is in the distal superior vena [...] consolidation. The distal tip of the retracted Zion-Maryanne catheter is in the distal superior vena [...] BLOOD ORDERABLES Fin al Result ARON BHAT [address] [address]lene [place] [address] * aPTT (01/07/2025 2:28 AM CDT) Pathologist [facility] aPTT 29 28 - 38 sec Comment: Interpretive Data Heparin therapeutic range: 66.0 - 100.0 seconds. Range based on correlation with therapeutic heparin activity range of 0.3 - 0.7 Units/mL. Current interpretive data was last revised on 2023. Blood 01/07/2025 2:28 AM CDT 01/07/2025 2:28 AM CDT Jessica Kimble INTELLIGENCE GROUP SUPERVISOR LAB BLOOD ORDERABLES Final Result Performing Organization Address [facility] Co de Phone Number ARON BHAT [address] [address] [facility] [place] [address] * Protime-INR (01/07/2025 2:28 AM CDT) Pathologist [facility] PT 12.2 9.7 - 13.0 sec INR [...] CDT 01/07/2025 2:28 AM CDT Jessica Kimble INTELLIGENCE GROUP SUPERVISOR LAB BLOOD ORDERABLES Final Result Performing Organization Address City/[facility]/ZIP Co de Phone Number ARON BHAT [address] [address] [place] [address] * Phosphorus (01/07/2025 2:28 AM CDT) Pathologist [facility] Phosphorus, pl 2.9 2.3 - 4.5 mg/dL Blood 01/07/2025 2:28 AM CDT 01/07/2025 2:28 AM CDT Maureenyony Morales Michelle INTELLIGENCE GROUP SUPERVISOR LAB BLOOD ORDERABLES Fin al Result Performing Organization Address [facility] de Phone Number ARON BHAT [address] [address] [place] [address] * (ABNORMAL) Bilirubin, direct (01/07/2025 2:28 AM CDT) Bilirubin, direct 0.8(H) 0.1 - 0.3 mg/dL Comment:Hemolysis present. R esults may be affected. Blood 01/07/2025 2:28 AM CDT 01/07/2025 2:28 AM CDT Maureen Martinez INTELLIGENCE GROUP SUPERVISOR LAB BLOOD ORDERABLES Fin al Result Performing Organization Address [facility] de Phone Number ARON BHAT [address] [address] [place] [address] * (ABNORMAL) Comprehensive metabolic panel (01/07/2025 2:28 AM CDT) Sodium 135 135 - 145 mmol/L Potassium, pl 3.9 3.3 - 4.9 mmol/L [facility] Chloride 95(L) 97 - 110 mmol/L [facility] CO2 30 22 - 32 mmol/L [facility] Anion gap 10 2 - 15 mmol/L [facility] BUN 46(H) 6 - 25 mg/dL [facility] Creatinine 1.31(H) 0.80 - 1.30 mg/dL [facility] Comment:Icteric sample, test results may be affected. [...] [place] [address] [address] Valdez [place] [address] * (ABNORMAL) CBC without differential (01/07/2025 2:27 [...] 01/07/2025 2:27 AM CDT us Maureen Martinez INTELLIGENCE GROUP SUPERVISOR LAB BLOOD ORDERABLES Fin al Result Performing Organization Address [facility] Co de Phone Number ARON BHAT [address] [address] [facility] [place] [address] * POCT glucose (01/06/2025 9:23 PM CDT) Glucose, POC 167 70 - 199 mg/dL POC Performer [id number] [facility] Blood 01/06/2025 9:23 PM CDT 01/06/2025 9:23 PM CDT us Angel Gonzalez MD LAB POCT ORDERABLES - DEVICE Final Result Performing Organization Address [facility] de Phone Number ARON BHAT [address] Kay[address] [facility] [place] [address] * POCT glucose (01/06/2025 5:43 PM CDT) Glucose, POC 192 70 - 199 mg/dL POC Performer [id number] [facility] CH Blood 01/06/2025 5:43 PM CDT 01/06/2025 5:43 PM CDT Angel Gonzalez MD LAB POCT ORDERABLES - DEVICE Final Result Performing Organization Address [facility] Co de Phone Number ARON BHAT [address] Kay[address] [facility] [place] [address] * POCT glucose (01/06/2025 12:16 PM CDT) Glucose, POC 139 70 - 199 mg/dL POC Performer [id number] [facility] Blood 01/06/2025 12:1 6 PM CDT 01/06/2025 12:16 PM CDT Angel Gonzalez MD LAB POCT ORDERABLES - DEVICE Final Result ARON BHAT [address] [address]lene [place] [address] * POCT glucose (01/06/2025 7:45 AM CDT) Glucose, POC 151 70 - 199 mg/dL POC Performer [id number] [facility] Blood 01/06/2025 7:45 AM CDT 01/06/2025 7:45 AM CDT Angel Gonzalez MD LAB POCT ORDERABLES - DEVICE Final Result Performing Organization Address [facility] Co de Phone Number ARON BHAT [address] [address] [place] [address] * (ABNORMAL) eGFR (01/06/2025 6:16 AM CDT) [...] CDT 01/06/2025 6:16 AM CDT Maureen Martinez INTELLIGENCE GROUP SUPERVISOR LAB BLOOD ORDERABLES Fin al Result Performing Organization Address [facility] Co de Phone Number ARON BHAT [address] Kaylene Department [employer] [place] [address] * (ABNORMAL) CBC without differential (01/06/2025 6:16 AM CDT) WBC 7.22 3.80 - 9.90 K/cumm Hgb 10.6(L) 13.0 - 17.5 g/dL [facility] Hct 31.7(L) 38.9 - 50.3 % [facility] Plt 106(L) 150 - 400 K/cumm [facility] CH MPV 10.9 9.1 - 12.3 fL [facility] RBC 3.58(L) 4.30 - 5.80 M/cumm [facility] CH MCV 88.5 81.3 - 96.4 fL [facility] MCH 29.6 27.1 - 33.3 pg [facility] MCHC 33.4 32.3 - 35.7 g/dL [facility] CH RDW CV 14.2 11.1 - 14.9 % [facility] CH RDW SD 45.8 35.7 - 48.1 fL [facility] NRBC abs 0.02(H) 0.00 - 0.01 K/cumm [facility] CH Blood 01/06/2025 6:16 AM CDT 01/06/2025 6:16 AM CDT Maureen Martinez INTELLIGENCE GROUP SUPERVISOR LAB BLOOD ORDERABLES Fin al Result Performing Organization Address City/[facility]/ZIP Co de Phone Number ARON BHAT [address] [place] [address] * (ABNORMAL) Renal function panel (01/06/2025 6:16 AM CDT) Sodium 134(L) 135 - 145 mmol/L Potassium, pl 3.4 3.3 - 4.9 mmol/L [facility] Chloride 94(L) 97 - 110 mmol/L [facility] CO2 30 22 - 32 mmol/L [facility] Anion gap 10 2 - 15 mmol/L [facility] BUN 47(H) 6 - 25 mg/dL [facility] Creatinine 1.36(H) 0.80 - 1.30 mg/dL [facility] [...] 2022. Calcium 8.9 8.5 - 10.3 mg/dL [facility] Phosphorus, pl 3.4 2.3 - 4.5 mg/dL [facility] Albumin 3.5 3.5 - 5.0 g/dL [facility] Blood 01/06/2025 6:16 AM CDT 01/06/2025 6:16 AM CDT us Maureen Martinez NP LAB BLOOD ORDERABLES [facility] al Result [facility] [address] Kaylene Valdez [place] [address] * XR Chest 1 View - Portable [...] by: Josh Renteria M.D. us Maureen Martinez INTELLIGENCE GROUP SUPERVISOR IMG XR PROCEDURES Final Result * POCT glucose (01/05/2025 9:44 PM CDT) Glucose, POC 169 70 - 199 mg/dL POC Performer [id number] [facility] Blood 01/05/2025 9:44 PM CDT 01/05/2025 9:44 PM CDT Angel Gonzalez MD LAB POCT ORDERABLES - DEVICE Final Result Performing Organization Address [facility] Co de Phone Number ARON [address] [place] [address] * POCT glucose (01/05/2025 4:58 PM CDT) Glucose, POC 148 70 - 199 mg/dL POC Performer [id number] [facility] Blood 01/05/2025 4:58 PM CDT 01/05/2025 4:58 PM CDT Angel Gonzalez MD LAB POCT ORDERABLES - DEVICE Final Result Performing Organization Address [facility] Co de Phone Number [facility] [address] Kaylene [place] [address] * POCT glucose (01/05/2025 12:25 PM CDT) Glucose, POC 109 70 - 199 mg/dL POC Performer [id number] [facility] Blood 01/05/2025 12:2 5 PM CDT 01/05/2025 12:25 PM CDT Angel Gonzalez MD LAB POCT ORDERABLES - DEVICE Final Result Performing Organization Address [facility] Co de Phone Number ARON BHAT [address] [place] [address] * ECG 12 lead (01/05/2025 12:21 PM CDT) 01/05/2025 12:2 1 PM CDT Narrative [facility] - 01/05/2025 1:36 PM CDT Vent Rate: 82 bpm RR Interval: 731 msec WV Interval: 218 msec QRS Duration: 97 msec QT Interval: 423 msec QTC Interval: 461 msec P-R-T [place]: 51 - -15 - 88 degrees IMPRESSION: SINUS RHYTHM WITH FIRST DEGREE AV BLOCK POSSIBLE INFERIOR MYOCARDIAL INFARCTION , PROBABLY OLD ST-depression in V2, V3, consider ischemia ABNORMAL ECG Electronically Signed By: Dr. Emiliano Cuello [facility] [facility] Brianna Arreola INTELLIGENCE GROUP SUPERVISOR ECG ORDERABLES Final Res ult Performing Organization Address [facility] Co de Phone Number [facility] * POCT glucose (01/05/2025 7:55 AM CDT) Glucose, POC 90 70 - 199 mg/dL POC Performer [id number] [facility] Blood 01/05/2025 7:55 AM CDT 01/05/2025 7:55 AM CDT Angel Gonzalez MD LAB POCT ORDERABLES - DEVICE Final Result Performing Organization Address [facility] Co de Phone Number ARON BHAT [address] Department [place] [place] [address] * XR Chest 1 View - Portable [...] signed by: Talisha Duggan M.D. Maureen Martinez INTELLIGENCE GROUP SUPERVISOR IMG XR PROCEDURES Final Result * POCT glucose (01/05/2025 5:37 AM CDT) Glucose, POC 106 70 - 199 mg/dL POC Performer [id number] ARON Blood 01/05/2025 5:37 AM CDT 01/05/2025 5:37 AM CDT us Angel Gonzalez MD LAB POCT ORDERABLES - DEVICE Final Result Performing Organization Address [facility] Co de Phone Number ARON BHAT [address] [place] [address] * (ABNORMAL) eGFR (01/05/2025 5:32 [...] 01/05/2025 6:34 AM CDT us Maureen Martinez INTELLIGENCE GROUP SUPERVISOR LAB BLOOD ORDERABLES Fin al Result Performing Organization Address [facility] Co de Phone Number ARON BHAT [address] Department of Laboratories [place], [place] [id number] * (ABNORMAL) CBC without differential (01/05/2025 5:32 AM CDT) WBC 5.52 3.80 - 9.90 K/cumm Hgb 9.7(L) 13.0 - 17.5 g/dL [facility] Hct 29.9(L) 38.9 - 50.3 % [facility] Plt 90(L) 150 - 400 K/cumm [facility] MPV 11.4 9.1 - 12.3 fL [facility] RBC 3.33(L) 4.30 - 5.80 M/cumm [facility] MCV 89.8 81.3 - 96.4 fL [facility] MCH 29.1 27.1 - 33.3 pg [facility] MCHC 32.4 32.3 - 35.7 g/dL [facility] RDW CV 14.1 11.1 - 14.9 % [facility] RDW SD 45.7 35.7 - 48.1 fL [facility] NRBC abs 0.00 0.00 - 0.01 K/cumm [facility] Blood 01/05/2025 5:32 AM CDT 01/05/2025 5:46 AM CDT Maureen Martinez INTELLIGENCE GROUP SUPERVISOR LAB BLOOD ORDERABLES Fin al Result Performing Organization Address [facility] de Phone Number [facility] [address] [place] [address] * Phosphorus (01/05/2025 5:32 AM CDT) Phosphorus, pl 3.5 2.3 - 4.5 mg/dL Blood 01/05/2025 5:32 AM CDT 01/05/2025 5:47 AM CDT Maureen Martinez NP LAB BLOOD ORDERABLES Fin al Result Performing Organization Address [facility] de Phone Number [facility] [address] [facility] [place] [address] * Magnesium (01/05/2025 5:32 AM CDT) Magnesium 2.0 1.4 - 2.5 mg/dL Blood 01/05/2025 5:32 AM CDT 01/05/2025 5:46 AM CDT Maureen Martinez INTELLIGENCE GROUP SUPERVISOR LAB BLOOD ORDERABLES Fin al Result Performing Organization Address [facility] de Phone Number ARON BHAT [address] [place] [address] * (ABNORMAL) Bilirubin, direct (01/05/2025 5:32 AM CDT) Bilirubin, direct 1.1(H) 0.1 - 0.3 mg/dL Blood 01/05/2025 5:32 AM CDT 01/05/2025 5:47 AM CDT us Maureen Martinez INTELLIGENCE GROUP SUPERVISOR LAB BLOOD ORDERABLES Fin al Result Performing Organization Address [facility] Co de Phone Number ARON BHAT [address] [place] [address] * (ABNORMAL) Comprehensive metabolic panel (01/05/2025 5:32 AM CDT) Sodium 138 135 - 145 mmol/L Potassium, pl 3.2(L) 3.3 - 4.9 mmol/L [facility] Chloride 97 97 - 110 mmol/L [facility] CH CO2 31 22 - 32 mmol/L [facility] Anion gap 10 2 - 15 mmol/L [facility] BUN 43(H) 6 - 25 mg/dL [facility] Creatinine 1.35(H) 0.80 - 1.30 mg/dL [facility] Comment:Icteric sample, test results may be affected. Glucose 109 70 - 199 mg/dL [facility] [...] 01/05/2025 5:47 AM CDT us Maureen Martinez INTELLIGENCE GROUP SUPERVISOR LAB BLOOD ORDERABLES Fin al Result Performing Organization Address [facility] Co de Phone Number ARON BHAT [address] [address] [facility] [place] [address] * POCT glucose (01/05/2025 2:13 AM CDT) Glucose, POC 104 70 - 199 mg/dL POC Performer [id number] [facility] Blood 01/05/2025 2:13 AM CDT 01/05/2025 2:13 AM CDT Angel Gonzalez MD LAB POCT ORDERABLES - DEVICE Final Result Performing Organization Address [facility] de Phone Number ARON BHAT [address] [facility] [place], [place] [id number] * POCT glucose (01/04/2025 8:19 PM CDT) Glucose, POC 153 70 - 199 mg/dL POC Performer [id number] [facility] Blood 01/04/2025 8:19 PM CDT 01/04/2025 8:19 PM CDT Angel Gonzalez MD LAB POCT ORDERABLES - DEVICE Final Result Performing Organization Address [facility] Co de Phone Number ARON BHAT [address] [place], [place] [phone] * POCT glucose (01/04/2025 5:13 PM CDT) Glucose, POC 96 70 - 199 mg/dL POC Performer [id number] [facility] CH Blood 01/04/2025 5:13 PM CDT 01/04/2025 5:13 PM CDT us Angel Gonzalez MD LAB POCT ORDERABLES - DEVICE Final Result Performing Organization Address City/[facility] Co de Phone Number ARON BHAT [address] [address] [facility] [place] [address] * POCT glucose (01/04/2025 11:29 AM CDT) Glucose, POC 110 70 - 199 mg/dL POC Performer [id number] [facility] CH Blood 01/04/2025 11:2 9 AM CDT 01/04/2025 11:29 AM CDT us Angel Gonzalez MD LAB POCT ORDERABLES - DEVICE Final Result Performing Organization Address [facility] Co de Phone Number ARON BHAT [address] [address] [facility] [place], [place] [phone] * POCT glucose (01/04/2025 7:35 AM CDT) Glucose, POC 118 70 - 199 mg/dL POC Performer [id number] [facility] CH Blood 01/04/2025 7:35 AM CDT 01/04/2025 7:35 AM CDT us Angel Gonzalez MD LAB POCT ORDERABLES - DEVICE Final Result Performing Organization Address City/[facility] Co de Phone Number ARON BHAT [address] [address] [facility] [place] [address] * Critical Care (01/04/2025 7:24 AM CDT) [...] plan with the patient's team and other medical/men's custom hair piece consultant staff. This time was in addition [...] consolidation. The distal tip of the retracted Zion-Maryanne catheter is at the cavoatrial junction. Interval [...] consolidation. The distal tip of the retracted Zion-Maryanne catheter is at the cavoatrial junction. Interval removal of bilateral thoracostomy tubes. IMPRESSION: Findings as described above. Electronically signed by: Sangeeta Harmon M.D. Maureen Martinez INTELLIGENCE GROUP SUPERVISOR IMG XR PROCEDURES Final Result * Calcium, ionized, whole blood (01/04/2025 4:34 AM CDT) Ca, ionized, bld 4.61 4.50 - 5.10 mg/dL Blood 01/04/2025 4:34 AM CDT 01/04/2025 4:37 AM CDT Maureen Martinez NP LAB BLOOD ORDERABLES Fin al Result ARON [address] [address] Department of Laboratories [place] [phone] * eGFR (01/04/2025 4:34 AM CDT) eGFR [...] CDT 01/04/2025 4:38 AM CDT Maureen Martinez INTELLIGENCE GROUP SUPERVISOR LAB BLOOD ORDERABLES Fin al Result Performing Organization Address [facility] Co de Phone Number ARON [address] Department [place] [employer] [place] [address] * (ABNORMAL) CBC without differential [...] CDT 01/04/2025 4:39 AM CDT Maureen Martinez INTELLIGENCE GROUP SUPERVISOR LAB BLOOD ORDERABLES Fin al Result Performing Organization Address [facility] Co de Phone Number ARON BHAT [address] [place] [address] * Magnesium (01/04/2025 4:34 AM CDT) Magnesium 2.1 1.4 - 2.5 mg/dL Blood 01/04/2025 4:34 AM CDT 01/04/2025 4:38 AM CDT Maureen Martinez INTELLIGENCE GROUP SUPERVISOR LAB BLOOD ORDERABLES Fin al Result Performing Organization Address [facility] Co de Phone Number ARON [address] [address] [facility] [place] [address] * (ABNORMAL) Hepatic function panel (01/04/2025 4:34 [...] CDT 01/04/2025 11:48 AM CDT Venus Iqbal INTELLIGENCE GROUP SUPERVISOR LAB BLOOD ORDERABL ES Final Result Performing Organization Address [facility] de Phone Number ARON [address] [address] [place] [address] * (ABNORMAL) Renal function panel (01/04/2025 4:34 [...] 2022. Calcium 8.5 8.5 - 10.3 mg/dL [facility] Phosphorus, pl 3.0 2.3 - 4.5 mg/dL [facility] Albumin 3.1(L) 3.5 - 5.0 g/dL [facility] Blood 01/04/2025 4:34 AM CDT 01/04/2025 4:38 AM CDT us Maureen Martinez NP LAB BLOOD ORDERABLES Fin al Result ARON BHAT [address] Department [place] ([place] [place] [address] * POCT glucose (01/03/2025 7:55 PM CDT) [facility] Glucose, POC 131 70 - 199 mg/dL POC Performer [id number] [facility] Blood 01/03/2025 7:55 PM CDT 01/03/2025 7:55 PM CDT us Angel Gonzalez MD LAB POCT ORDERABLES - DEVICE Final Result ARON BHAT [address] [address] Department [place] [employer] [place] [address] * Critical Care (01/03/2025 7:51 [...] plan with the patient's team and other medical/men's custom hair piece consultant staff. This time was in addition [...] 133 70 - 199 mg/dL POC Performer [id number] ARON Blood 01/03/2025 4:44 PM CDT 01/03/2025 4:44 PM CDT us Angel Gonzalez MD LAB POCT ORDERABLES - DEVICE Final Result Performing Organization Address [facility] Co de Phone Number ARON HOME [address] [place] [address] * Calcium, ionized, whole blood (01/03/2025 2:19 PM CDT) Ca, ionized, bld 4.54 4.50 - 5.10 mg/dL Blood 01/03/2025 2:19 PM CDT 01/03/2025 2:28 PM CDT us Angel Gonzalez MD LAB BLOOD ORDERABLES Final R esult Performing Organization Address City/[facility]/ZIP Co de Phone Number ARON [address] [address] [place] [address] * (ABNORMAL) eGFR (01/03/2025 2:19 PM CDT) Pathologist [facility] eGFR 55(L) >=60 mL/min/1. 73 m2 Comment: [...] esult [facility] [address] [address] [place] [address] * (ABNORMAL) CBC without differential (01/03/2025 2:19 PM CDT) [facility] WBC 6.23 3.80 - 9.90 K/cumm Hgb 11.2(L) 13.0 - 17.5 g/dL [facility] Hct 34.5(L) 38.9 - 50.3 % [facility] Plt 105(L) 150 - 400 K/cumm [facility] MPV 10.7 9.1 - 12.3 fL [facility] RBC 3.86(L) 4.30 - 5.80 M/cumm [facility] MCV 89.4 81.3 - 96.4 fL [facility]ER [...] ORDERABLES Final R esult Performing Organization Address City/[facility]/ZIP Co de Phone Number [facility] [address] [address] [place] [address] * Magnesium (01/03/2025 2:19 PM CDT) [facility] Magnesium 2.1 1.4 - 2.5 mg/dL Blood 01/03/2025 2:19 PM CDT 01/03/2025 2:28 PM CDT Angel Gonzalez MD LAB BLOOD ORDERABLES Final R esult Performing Organization Address City/[facility]/ZIP Co de Phone Number [facility] [address] [address] [place] [address] * (ABNORMAL) Basic metabolic panel (01/03/2025 2:19 PM CDT) Pathologist [facility] Sodium 137 135 - 145 mmol/L Potassium, pl 3.6 3.3 - 4.9 mmol/L [facility] Chloride 99 97 - 110 mmol/L [facility] CO2 26 22 - 32 mmol/L [facility] Anion gap 12 2 - 15 mmol/L [facility] BUN 31(H) 6 - 25 mg/dL [facility] Creatinine 1.33(H) 0.80 - 1.30 mg/dL [facility] [...] ORDERABLES Final R esult Performing Organization Address [facility] Co de Phone Number ARON [address] [place] [address] * POCT glucose (01/03/2025 12:28 PM CDT) Glucose, POC 127 70 - 199 mg/dL POC Performer [id number] [facility] Blood 01/03/2025 12:2 8 PM CDT 01/03/2025 12:28 PM CDT Angel Gonzalez MD LAB POCT ORDERABLES - DEVICE Final Result Performing Organization Address [facility] Co de Phone Number [facility] [address] [place] [address] * (ABNORMAL) Protime-INR (01/03/2025 11:13 AM CDT) PT 13.2(H) 9.7 - 13.0 sec INR 1.22(H) 0.90 - 1.20 [facility] [...] ORDERABL ES Final Result Performing Organization Address [facility] Co de Phone Number ARON BHAT [address] [address] [facility] [place] [address] * (ABNORMAL) Lactate dehydrogenase (LD) (01/03/2025 11:13 AM CDT) Lactate dehydrogenase (LDH) 316(H) 100 - 250 Units/L Blood 01/03/2025 11:1 3 AM CDT 01/03/2025 11:16 AM CDT Venus Elizabeth Iqbal NP LAB BLOOD ORDERABL ES Final Result Performing Organization Address [facility] de Phone Number ARON BHAT [address] [facility] [place] [address] * (ABNORMAL) Haptoglobin (01/03/2025 11:13 AM CDT) Haptoglobin 208(H) 30 - 200 mg/dL Comment:Hemolysis present. R esults may be affected. Blood 01/03/2025 11:1 3 AM CDT 01/03/2025 11:16 AM CDT Venus Elizabeth Iqbal NP LAB BLOOD ORDERABL ES Final Result Performing Organization Address [facility] de Phone Number ARON BHAT [address] [address] [facility] [place], [place] [phone] * Clinical pathology report (01/03/2025 11:11 AM CDT) Miscellaneous 01/03/2025 11: 11 AM CDT 01/03/2025 1:00 PM CDT Narrative 01/03/2025 2:10 PM CDT EPIC results best viewed via link to PDF [facility] Department of Pathology [address] [place] [id number] Final Report Note to Patients: This [...] the details. Patient Name: DENISE JAMES Address: [address] [place] [address], [place] [address] Gender: M : 1945 (Age: 79) Service: Cardiothoracic Location: [facility] Hospital #: [id number] Patient Type: [facility] Taken: 01/03/2025 Received: 01/03/2025 Accessioned: 01/03/2025 Physician(s): [...] determined by the Surgical Pathology Department at [facility] as part of an ongoing data quality consultant program and in compliance with federally mandated [...] characteristics determined by the Surgical Pathology Department [facility]. It has not been cleared or approved [...] plan with the ICU team and other medical/men's custom hair piece consultant staff, making frequent assessments and decisions [...] 135 70 - 199 mg/dL POC Performer [id number] ARON BHAT Blood 01/03/2025 7:51 AM CDT 01/03/2025 7:51 AM CDT Angel Gonzalez MD LAB POCT ORDERABLES - DEVICE Final Result LETIBERTO [address] [address] [place] [address] * XR Chest 1 View [...] drain in place. The tip of the Zion-Maryanne catheter is in the undivided main pulmonary [...] drain in place. The tip of the Zion-Maryanne catheter is in the undivided main pulmonary artery. Ill-defined left lower lobe infiltrate with the remainder of the lungs being clear. Heart not enlarged. Mild degree of vascular congestion. IMPRESSION: Findings as described above. Electronically signed by: Sangeeta Harmon M.D. us Maureen Martinez INTELLIGENCE GROUP SUPERVISOR IMG XR PROCEDURES Final Result * Calcium, ionized, whole blood (01/03/2025 4:04 AM CDT) Ca, ionized, bld 4.56 4.50 - 5.10 mg/dL Blood 01/03/2025 4:04 AM CDT 01/03/2025 4:19 AM CDT Maureen Martinez INTELLIGENCE GROUP SUPERVISOR LAB BLOOD ORDERABLES Fin al Result ARON [address] [address] Department of Laboratories [place] [phone] * (ABNORMAL) eGFR (01/03/2025 4:04 AM CDT) [...] CDT 01/03/2025 4:35 AM CDT Maureen Martinez INTELLIGENCE GROUP SUPERVISOR LAB BLOOD ORDERABLES Fin al Result Performing Organization Address [facility] Co de Phone Number ARON [address] Department [place] [place], [place] [id number] * (ABNORMAL) CBC without differential (01/03/2025 4:04 AM CDT) WBC 4.21 3.80 - 9.90 K/cumm Hgb 9.6(L) 13.0 - 17.5 g/dL [facility] Hct 29.7(L) 38.9 - 50.3 % [facility] CH Plt 76(L) 150 - 400 K/cumm [facility] MPV 10.8 9.1 - 12.3 fL [facility] RBC 3.30(L) 4.30 - 5.80 M/cumm [facility] MCV 90.0 81.3 - 96.4 fL [facility] MCH 29.1 27.1 - 33.3 pg [facility] MCHC 32.3 32.3 - 35.7 g/dL [facility] CH RDW CV 15.2(H) 11.1 - 14.9 % [facility] CH RDW SD 50.0(H) 35.7 - 48.1 fL [facility] NRBC abs 0.00 0.00 - 0.01 K/cumm [facility] Blood 01/03/2025 4:04 AM CDT 01/03/2025 4:22 AM CDT Maureen Martinez INTELLIGENCE GROUP SUPERVISOR LAB BLOOD ORDERABLES Fin al Result Performing Organization Address City/[facility]/ZIP Co de Phone Number ARON BHAT [address] [place] [address] * Phosphorus (01/03/2025 4:04 AM CDT) Phosphorus, pl 2.9 2.3 - 4.5 mg/dL Blood 01/03/2025 4:04 AM CDT 01/03/2025 4:18 AM CDT Maureen Martinez INTELLIGENCE GROUP SUPERVISOR LAB BLOOD ORDERABLES Fin al Result Performing Organization Address [facility] Co de Phone Number ARON BHAT [address] [address] [facility] [place] [address] * Magnesium (01/03/2025 4:04 AM CDT) Pathologist [facility] Magnesium 2.2 1.4 - 2.5 mg/dL Blood 01/03/2025 4:04 AM CDT 01/03/2025 4:18 AM CDT Maureen Martinez INTELLIGENCE GROUP SUPERVISOR LAB BLOOD ORDERABLES Fin al Result Performing Organization Address [facility] Phone Number ARON BHAT [address] [address] [facility] [place] [address] * (ABNORMAL) Bilirubin, direct (01/03/2025 4:04 AM CDT) Pathologist [facility] Bilirubin, direct 1.6(H) 0.1 - 0.3 mg/dL Blood 01/03/2025 4:04 AM CDT 01/03/2025 4:18 AM CDT Maureen Martinez INTELLIGENCE GROUP SUPERVISOR LAB BLOOD ORDERABLES Fin al Result Performing Organization Address [facility] de Phone Number ARON BHAT [address] [address] [facility] [place] [address] * (ABNORMAL) Comprehensive metabolic panel (01/03/2025 4:04 [...] 01/03/2025 4:18 AM CDT us Maureen Martinez INTELLIGENCE GROUP SUPERVISOR LAB BLOOD ORDERABLES Fin al Result Performing Organization Address City/[facility]/ZIP Co de Phone Number ARON BHAT [address] [address] Department [place] [employer] [place] [address] * POCT glucose (01/03/2025 4:01 AM CDT) Glucose, POC 118 70 - 199 mg/dL POC Performer [id number] [facility] Blood 01/03/2025 4:01 AM CDT 01/03/2025 4:01 AM CDT Angel Gonzalez MD LAB POCT ORDERABLES - DEVICE Final Result ARON BHAT [address] [address] [place] [address] * Critical Care (01/02/2025 8:52 PM CDT) [...] plan with the ICU team and other medical/men's custom hair piece consultant staff, making frequent assessments and decisions [...] 133 70 - 199 mg/dL POC Performer [id number] ARON BHAT Blood 01/02/2025 7:46 PM CDT 01/02/2025 7:46 PM CDT us Angel Gonzalez MD LAB POCT ORDERABLES - DEVICE Final Result ARON BHAT [address] [address] [place] [address] * Transfuse RBC (01/02/2025 6:00 PM CDT) Blood Angel Gonzalez MD BLOOD TRANSFUSION ORDERABLES Final Result Performing Organization Address [facility] Co de Phone Number ARON BHAT [address] [address] [facility] [place] [address] * POCT glucose (01/02/2025 4:53 PM CDT) Pathologist [facility] Glucose, POC 138 70 - 199 mg/dL POC Performer [id number] [facility] Blood 01/02/2025 4:53 PM CDT 01/02/2025 4:53 PM CDT Angel Gonzalez MD LAB POCT ORDERABLES - DEVICE Final Result Performing Organization Address [facility] de Phone Number LETIBERTO BHAT [address] [address] [place] [address] * Calcium, ionized, whole blood (01/02/2025 2:35 PM CDT) [facility] Ca, ionized, bld 4.82 4.50 - 5.10 mg/dL Blood 01/02/2025 2:35 PM CDT 01/02/2025 2:49 PM CDT Angel Gonzalez MD LAB BLOOD ORDERABLES Final R esult Performing Organization Address [facility] de Phone Number ARON BHAT [address] [address] [place] [address] * (ABNORMAL) eGFR (01/02/2025 2:35 PM CDT) [facility] eGFR 53(L) >=60 mL/min/1. 73 m2 Comment: [...] esult [facility] [address] [address] [place] [address] * (ABNORMAL) Differential, auto (01/02/2025 2:35 PM CDT) Neutrophil abs 3.37 1.50 - 6.50 K/cumm Imm gran abs 0.01 0.00 - 0.10 K/cumm [facility] Lymphocyte abs 0.35(L) 0.80 - 3.30 K/cumm [facility] Monocyte abs 0.24 0.20 - 0.80 K/cumm [facility] Eosinophil abs 0.01 0.00 - 0.50 K/cumm [facility] Basophil abs 0.00 0.00 - 0.10 K/cumm [facility] Neutrophil pct 84.6 % [facility] Comment: Interpretive Data Percent cell count reference [...] revised on 2017. Lymphocyte pct 8.8 % [facility] Comment: Interpretive Data Percent cell count reference ranges are not reported, since discordance with absolute values may lead to misinterpretation of CBC data. Current Interpretive Data was last revised on 2017. Monocyte pct 6.0 % [facility] Comment: Interpretive Data Percent cell count reference ranges are not reported, since discordance with absolute values may lead to misinterpretation of CBC data. Current Interpretive Data was last revised on 2017. Eosinophil pct 0.3 % [facility] Comment: Interpretive Data Percent cell count reference ranges are not reported, since discordance with absolute values may lead to misinterpretation of CBC data. Current Interpretive Data was last revised on 2017. Basophil pct 0.0 % [facility] Comment: Interpretive Data Percent cell count reference ranges are not reported, since discordance with absolute values may lead to misinterpretation of CBC data. Current Interpretive Data was last revised on 2017. Blood 01/02/2025 2:35 PM CDT 01/02/2025 2:51 PM CDT us Angel Gonzalez MD LAB BLOOD ORDERABLES Final R esult [facility] [facility] [address] [address] [place] [address] * (ABNORMAL) CBC with auto [...] DAUGHTERS MCHC 32.8 32.3 - 35.7 g/dL [facility] RDW CV 14.8 11.1 - 14.9 % [facility] RDW SD 49.4(H) 35.7 - 48.1 fL [facility] NRBC abs 0.00 0.00 - 0.01 K/cumm [facility] Blood 01/02/2025 2:35 PM CDT 01/02/2025 2:51 PM CDT Angel Gonzalez MD LAB BLOOD ORDERABLES Final R esult Performing Organization Address City/[facility] Co de Phone Number ARON [address] Kay[address] [facility] [place] [address] * Phosphorus (01/02/2025 2:35 PM CDT) Phosphorus, pl 2.5 2.3 - 4.5 mg/dL Blood 01/02/2025 2:35 PM CDT 01/02/2025 2:49 PM CDT Angel Gonzalez MD LAB BLOOD ORDERABLES Final R esult Performing Organization Address [facility] de Phone Number [facility] [address] [address] [facility] [place] [address] * Magnesium (01/02/2025 2:35 PM CDT) Magnesium 2.1 1.4 - 2.5 mg/dL Blood 01/02/2025 2:35 PM CDT 01/02/2025 2:49 PM CDT Angel Gonzalez MD LAB BLOOD ORDERABLES Final R esult Performing Organization Address [facility] de Phone Number [facility] [address] Kay[address] [facility] [place] [address] * (ABNORMAL) Blood gas, arterial [...] esult [facility] [address] [address]lene Valdez [place] [address] * (ABNORMAL) Basic metabolic panel [...] ORDERABLES Final R esult Performing Organization Address City/[facility]/ZIP Co de Phone Number ARON BHAT [address] [address] [facility] [place] [address] * POCT glucose (01/02/2025 1:18 PM CDT) Glucose, POC 174 70 - 199 mg/dL POC Performer [id number] CERNER CH Blood 01/02/2025 1:18 PM CDT 01/02/2025 1:18 PM CDT Angel Gonzalez MD LAB POCT ORDERABLES - DEVICE Final Result Performing Organization Address [facility] de Phone Number ARON BHAT [address] Kay[address] [facility] [place] [address] * (ABNORMAL) POCT glucose (01/02/2025 1:16 PM CDT) Glucose, POC 61(L) 70 - 199 mg/dL POC Performer [id number] CERNER CH Blood 01/02/2025 1:16 PM CDT 01/02/2025 1:16 PM CDT Angel Gonzalez MD LAB POCT ORDERABLES - DEVICE Final Result Performing Organization Address [facility] de Phone Number ARON BHAT [address] [address] [facility] [place] [address] * Prepare RBC: 1 Units (01/02/2025 11:36 AM CDT) Product code [id number] Unit Number [id number] 9-A CERNER CH Product Blood Type BNEG CERNER CH Dispense Status RETURNED CERNER CH Blood 01/02/2025 11:3 6 AM CDT Narrative CERNER CH - 01/03/2025 12:26 AM CDT 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 (All products are leukoreduced and CMV- safe)- >No Date required:-[id number] LRRBC # of Tnigs-[id number] Reasons:-Other (specify)} Angel Gonzalez MD BLOOD BANK PRODUCT ORDERABLE S Final Result Performing Organization Address [facility] Co de Phone Number LETIBERTO BHAT [address] [facility] [place] [address] * Oxyhemoglobin, pulmonary artery (01/02/2025 10:01 AM CDT) Oxyhemoglobin, PA 53.7 % Comment: Interpretive Data No reference range established. Current interpretive data was last revised 2019. Blood 01/02/2025 10:0 1 AM CDT 01/02/2025 10:04 AM CDT Angel Gonzalez MD LAB BLOOD ORDERABLES Final R esult Performing Organization Address [facility] Co de Phone Number ARON HOME [address] [address] Val[address] [place] [address] * POCT glucose (01/02/2025 8:28 AM CDT) Glucose, POC 166 70 - 199 mg/dL POC Performer [id number] [facility] Blood 01/02/2025 8:28 AM CDT 01/02/2025 8:28 AM CDT Angel Gonzalez MD LAB POCT ORDERABLES - DEVICE Final Result Performing Organization Address [facility] Co de Phone Number ARON BHAT [address] Kay[address] [facility] [place], [place] [id number] * Critical Care (01/02/2025 6:54 AM CDT) [...] plan with the ICU team and other medical/men's custom hair piece consultant staff, making frequent assessments and decisions [...] in unchanged position. The tip of the Zion-Maryanne catheter is in the undivided main pulmonary [...] in unchanged position. The tip of the Zion-Maryanne catheter is in the undivided main pulmonary artery. Left lower lobe infiltrate noted with the remainder of the lungs being clear. Heart not enlarged. No failure. IMPRESSION: No failure Electronically signed by: Sangeeta Harmon M.D. Maureen Martinez INTELLIGENCE GROUP SUPERVISOR IMG XR PROCEDURES Final Result * POCT glucose (01/02/2025 3:36 AM CDT) [facility] Glucose, POC 152 70 - 199 mg/dL POC Performer [id number] [facility] Blood 01/02/2025 3:36 AM CDT 01/02/2025 3:36 AM CDT Angel Gonzalez MD LAB POCT ORDERABLES - DEVICE Final Result Performing Organization Address City/[facility] Co de Phone Number LETIBERTO BHAT [address] [address]lene Val[address] Department [employer] [place] [address] * Calcium, ionized, whole blood (01/02/2025 2:14 AM CDT) [facility] Ca, ionized, bld 4.78 4.50 - 5.10 mg/dL Blood 01/02/2025 2:14 AM CDT 01/02/2025 2:21 AM CDT Maureen Martinez NP LAB BLOOD ORDERABLES Fin al Result Performing Organization Address City/[facility]/ZIP Co de Phone Number LETIBERTO BHAT [address] Kaylene [place] [address] * (ABNORMAL) eGFR (01/02/2025 2:14 AM CDT) [facility] eGFR 55(L) >=60 mL/min/1. 73 m2 Comment: [...] us Maureen Martinez NP LAB BLOOD ORDERABLES [facility] al Result [facility] [address] [address]lene Valdez [place] [address] * (ABNORMAL) CBC without differential (01/02/2025 2:14 AM CDT) WBC 3.78(L) 3.80 - 9.90 K/cumm Hgb 8.9(L) 13.0 - 17.5 g/dL [facility] Hct 27.0(L) 38.9 - 50.3 % [facility] Plt 80(L) 150 - 400 K/cumm [facility] MPV 10.7 9.1 - 12.3 fL [facility] RBC 2.99(L) 4.30 - 5.80 M/cumm [facility] MCV 90.3 81.3 - 96.4 fL [facility] MCH 29.8 27.1 - 33.3 pg [facility] MCHC 33.0 32.3 - 35.7 g/dL [facility] RDW CV 14.7 11.1 - 14.9 % [facility] RDW SD 48.5(H) 35.7 - 48.1 fL [facility] NRBC abs 0.00 0.00 - 0.01 K/cumm [facility] Blood 01/02/2025 2:14 AM CDT 01/02/2025 2:19 AM CDT Maureen Martinez INTELLIGENCE GROUP SUPERVISOR LAB BLOOD ORDERABLES Fin al Result Performing Organization Address [facility] de Phone Number [facility] [address] Kaylene [place] [address] * Magnesium (01/02/2025 2:14 AM CDT) [facility] Magnesium 2.3 1.4 - 2.5 mg/dL Blood 01/02/2025 2:14 AM CDT 01/02/2025 2:24 AM CDT Maureen Martinez INTELLIGENCE GROUP SUPERVISOR LAB BLOOD ORDERABLES Fin al Result Performing Organization Address [facility] de Phone Number [facility] [address] Kaylene [place] [address] * (ABNORMAL) Renal function panel (01/02/2025 2:14 AM CDT) Pathologist [facility] Sodium 145 135 - 145 mmol/L Potassium, pl 4.2 3.3 - 4.9 mmol/L [facility] Chloride 109 97 - 110 mmol/L [facility] CO2 25 22 - 32 mmol/L [facility] Anion gap 11 2 - 15 mmol/L [facility] BUN 26(H) 6 - 25 mg/dL [facility] Creatinine 1.33(H) 0.80 - 1.30 mg/dL [facility] [...] CDT 01/02/2025 2:24 AM CDT Maureen Martinez INTELLIGENCE GROUP SUPERVISOR LAB BLOOD ORDERABLES Fin al Result Performing Organization Address [facility] Co de Phone Number ARON BHAT [address] Kaylene [place] [address] * POCT glucose (01/01/2025 11:59 PM CDT) Glucose, POC 137 70 - 199 mg/dL POC Performer [id number] [facility] Blood 01/01/2025 11:5 9 PM CDT 01/01/2025 11:59 PM CDT Angel Gonzalez MD LAB POCT ORDERABLES - DEVICE Final Result Performing Organization Address [facility] de Phone Number ARON BHAT [address] Kaylene [place] [address] * POCT glucose (01/01/2025 9:06 PM CDT) Glucose, POC 164 70 - 199 mg/dL POC Performer [id number] [facility] Blood 01/01/2025 9:06 PM CDT 01/01/2025 9:06 PM CDT Angel Gonzalez MD LAB POCT ORDERABLES - DEVICE Final Result Performing Organization Address [facility] Co de Phone Number ARON BHAT [address] [address] [place] [address] * Critical Care (01/01/2025 7:22 PM CDT) [...] plan with the ICU team and other medical/men's custom hair piece consultant staff, making frequent assessments and decisions [...] - DEVICE Final Result Performing Organization Address City/[facility]/ZIP Co de Phone Number LETIBERTO BHAT [address] [place] [address] * (ABNORMAL) POCT glucose (01/01/2025 4:32 PM CDT) Glucose, POC 208(H) 70 - 199 mg/dL POC Performer [id number] CERNER CH Blood 01/01/2025 4:32 PM CDT 01/01/2025 4:32 PM CDT Angel Gonzalez MD LAB POCT ORDERABLES - DEVICE Final Result ARON BAHT [address] Kaylene Department of [place], [place] [id number] * (ABNORMAL) POC Blood Gas and Chemistries, [...] LAB POCT ORDERABLES - DEVICE Final Result [facility] [address] Kaylene Valdez [place] [address] * (ABNORMAL) POCT glucose (01/01/2025 12:20 PM CDT) Glucose, POC 228(H) 70 - 199 mg/dL POC Performer [id number] CERNER CH Blood 01/01/2025 12:2 0 PM CDT 01/01/2025 12:20 PM CDT Angel Gonzalez MD LAB POCT ORDERABLES - DEVICE Final Result ARON BHAT [address] Kay[address] [facility] [place] [address] * Calcium, ionized, whole blood (01/01/2025 11:58 AM CDT) Ca, ionized, bld 5.06 4.50 - 5.10 mg/dL Blood 01/01/2025 11:5 8 AM CDT 01/01/2025 12:02 PM CDT Angel Gonzalez MD LAB BLOOD ORDERABLES Final R esult Performing Organization Address [facility] Co de Phone Number ARON BHAT [address] Kay[address] [facility] [place] [address] * eGFR (01/01/2025 11:58 AM CDT) eGFR [...] BLOOD ORDERABLES Final R esult ARON BHAT [address] Department of [place], [place] [id number] * (ABNORMAL) CBC without differential (01/01/2025 11:58 AM CDT) WBC 5.21 3.80 - 9.90 K/cumm Hgb 8.8(L) 13.0 - 17.5 g/dL [facility] Hct 26.1(L) 38.9 - 50.3 % [facility] Plt 81(L) 150 - 400 K/cumm [facility] MPV 10.9 9.1 - 12.3 fL [facility] RBC 2.93(L) 4.30 - 5.80 M/cumm [facility] MCV 89.1 81.3 - 96.4 fL [facility] MCH 30.0 27.1 - 33.3 pg [facility] MCHC 33.7 32.3 - 35.7 g/dL [facility] RDW CV 14.6 11.1 - 14.9 % [facility] CH RDW SD 47.5 35.7 - 48.1 fL [facility] NRBC abs 0.00 0.00 - 0.01 K/cumm [facility] Blood 01/01/2025 11:5 8 AM CDT 01/01/2025 12:02 PM CDT us Angel Gonzalez MD LAB BLOOD ORDERABLES Final R esult ARON BHAT [address] [place] [address] * Phosphorus (01/01/2025 11:58 AM CDT) Phosphorus, pl 3.2 2.3 - 4.5 mg/dL Blood 01/01/2025 11:5 8 AM CDT 01/01/2025 12:02 PM CDT Angel Gonzalez MD LAB BLOOD ORDERABLES Final R esult ARON BHAT [address] Kaylene Valdez [facility] [employer] [place], [place] [id number] * Magnesium (01/01/2025 11:58 AM CDT) Magnesium 2.1 1.4 - 2.5 mg/dL Blood 01/01/2025 11:5 8 AM CDT 01/01/2025 12:02 PM CDT Angel Gonzalez MD LAB BLOOD ORDERABLES Final R esult Performing Organization Address [facility] Co de Phone Number ARON BHAT [address] Kaylene Valdez Department [place], [place] [phone] * (ABNORMAL) Blood gas, arterial (01/01/2025 11:58 [...] ORDERABLES Fin al Result Performing Organization Address City/[facility]/ZIP Co de Phone Number ARON BHAT [address] [facility] [place], [place] [id number] * (ABNORMAL) Basic metabolic panel (01/01/2025 11:58 [...] affected. Glucose 226(H) 70 - 199 mg/dL [facility] Comment: Interpretive Data Fasting glucose >/= 126 [...] 2022. Calcium 9.6 8.5 - 10.3 mg/dL [facility] Blood 01/01/2025 11:5 8 AM CDT 01/01/2025 12:02 PM CDT Angel Gonzalez MD LAB BLOOD ORDERABLES Final R esult ARON [address] Kaylene Valdez [place] [address] * (ABNORMAL) POC Blood Gas and Chemistries, Arterial - (01/01/2025 11:05 AM CDT) Pathologist [facility] pH, Art POC 7.47(H) 7.35 - 7.45 [...] - DEVICE Final Result Performing Organization Address City/[facility] Co de Phone Number ARON BHAT [address] [place] [address] * (ABNORMAL) POCT glucose (01/01/2025 8:03 AM CDT) [facility] Signature Glucose, POC 251(H) 70 - 199 mg/dL POC Performer [id number] CERNER CH Blood 01/01/2025 8:03 AM CDT 01/01/2025 8:03 AM CDT Angel Gonzalez MD LAB POCT ORDERABLES - DEVICE Final Result LETIBERTO BHAT [address] Kaylene Department [employer] [place], [place] [id number] * ECG 12 lead (01/01/2025 7:41 AM CDT) 01/01/2025 7:41 AM CDT Narrative [facility] - 01/01/2025 6:31 PM CDT Vent Rate: 181 bpm RR Interval: 331 msec WV Interval: 0 msec QRS Duration: 88 msec QT Interval: 242 msec QTC Interval: 337 msec P-R-T [place]: 0 - 22 - 9 degrees IMPRESSION: ATRIAL FIBRILLATION WITH RAPID VENTRICULAR RESPONSE NONSPECIFIC ST \T\ T-WAVE ABNORMALITY CRITICAL TEST RESULT Electronically Signed By: Dr. Emiliano Cuello [facility] us Angel Gonzalez MD ECG ORDERABLES Final Result [facility] * Critical Care (01/01/2025 6:50 AM CDT) Narrative Gayathri Braga MD - 01/01/2025 6:50 AM CDT Gayathri Braga MD 01/03/2025 6:25 PM Critical Care Performed by: Maureen Martinez NP Authorized by: Maureen Martinez NP CRITICAL CARE: Team: [facility] Shift: AM Level of Billing: Critical [...] plan with the ICU team and other medical/men's custom hair piece consultant staff, making frequent assessments and decisions [...] nasogastric tubes. Chest drains mediastinal drain and Zion-Maryanne catheter remain in place. Mild pulmonary vascular congestion with bibasilar atelectasis with no pneumothorax Procedure Note Jesus Omer MD - 01/01/2025 EXAMINATION: XR CHEST 1 VIEW DATE: 01/01/2025 5:20 AM HISTORY: Cardiac surgery follow-up FINDINGS:When compared with study of the prior day, the patient has been extubated with removal of endotracheal and nasogastric tubes. Chest drains mediastinal drain and Zion-Maryanne catheter remain in place. Mild pulmonary vascular congestion with bibasilar atelectasis with no pneumothorax IMPRESSION: Mild failure. No pneumothorax. Bibasilar atelectasis. Extubation. Electronically signed by: Jesus Omer M.D. Maureen Martinez INTELLIGENCE GROUP SUPERVISOR IMG XR PROCEDURES Final Result * (ABNORMAL) [...] CDT 01/01/2025 2:36 AM CDT Maureen Martinez INTELLIGENCE GROUP SUPERVISOR LAB BLOOD ORDERABLES Fin al Result Performing Organization Address [facility] Co de Phone Number ARON BHAT [address] [place] [address] * (ABNORMAL) Fibrinogen (01/01/2025 2:36 AM CDT) Fibrinogen 463(H) 170 - 400 mg/dL Blood 01/01/2025 2:36 AM CDT 01/01/2025 2:36 AM CDT Maureen Carmen Michelle INTELLIGENCE GROUP SUPERVISOR LAB BLOOD ORDERABLES Fin al Result Performing Organization Address [facility] de Phone Number ARON BHAT [address] [place] [address] * (ABNORMAL) CBC without differential (01/01/2025 2:36 AM CDT) WBC 4.51 3.80 - 9.90 K/cumm Hgb 8.2(L) 13.0 - 17.5 g/dL [facility] Hct 24.4(L) 38.9 - 50.3 % [facility] Plt 75(L) 150 - 400 K/cumm [facility] MPV 10.0 9.1 - 12.3 fL [facility] RBC 2.75(L) 4.30 - 5.80 M/cumm [facility] MCV 88.7 81.3 - 96.4 fL CERNER MCH 29.8 27.1 - 33.3 pg [facility] MCHC 33.6 32.3 - 35.7 g/dL [facility] RDW CV 14.6 11.1 - 14.9 % [facility] CH RDW SD 46.8 35.7 - 48.1 fL [facility] NRBC abs 0.00 0.00 - 0.01 K/cumm CERNER CH Blood 01/01/2025 2:36 AM CDT 01/01/2025 2:36 AM CDT Maureen Masseycamille Martinez INTELLIGENCE GROUP SUPERVISOR LAB BLOOD ORDERABLES Fin al Result Performing Organization Address City/[facility] Co de Phone Number ARON BHAT [address] Kay[address] [facility] [place], [place] [phone] * (ABNORMAL) Calcium, ionized, whole blood (01/01/2025 2:31 AM CDT) Ca, ionized, bld 4.44(L) 4.50 - 5.10 mg/dL Blood 01/01/2025 2:31 AM CDT 01/01/2025 2:36 AM CDT Maureen Morales Michelle INTELLIGENCE GROUP SUPERVISOR LAB BLOOD ORDERABLES Fin al Result Performing Organization Address [facility] Phone Number ARON BHAT [address] [place] [address] * eGFR (01/01/2025 2:31 AM CDT) eGFR [...] 01/01/2025 2:39 AM CDT Maureen Morales Michelle INTELLIGENCE GROUP SUPERVISOR LAB BLOOD ORDERABLES Fin al Result Performing Organization Address City/[facility] Co de Phone Number ARON BHAT [address] [facility] [place] [address] * Phosphorus (01/01/2025 2:31 AM CDT) Phosphorus, pl 3.5 2.3 - 4.5 mg/dL Blood 01/01/2025 2:31 AM CDT 01/01/2025 2:36 AM CDT Maureen Carmen Michelle INTELLIGENCE GROUP SUPERVISOR LAB BLOOD ORDERABLES Fin al Result Performing Organization Address [facility] de Phone Number ARON BHAT [address] [facility] [place] [address] * Magnesium (01/01/2025 2:31 AM CDT) Magnesium 2.0 1.4 - 2.5 mg/dL Blood 01/01/2025 2:31 AM CDT 01/01/2025 2:36 AM CDT Maureen Martinez INTELLIGENCE GROUP SUPERVISOR LAB BLOOD ORDERABLES Fin al Result Performing Organization Address [facility] de Phone Number LETIBERTO BHAT [address] [facility] [place] [address] * (ABNORMAL) Bilirubin, direct (01/01/2025 2:31 AM CDT) Bilirubin, direct 1.3(H) 0.1 - 0.3 mg/dL Blood 01/01/2025 2:31 AM CDT 01/01/2025 2:36 AM CDT Maureen Martinez INTELLIGENCE GROUP SUPERVISOR LAB BLOOD ORDERABLES Fin al Result Performing Organization Address [facility] Co de Phone Number ARON BHAT [address] [facility] [place] [address] * (ABNORMAL) Comprehensive metabolic panel (01/01/2025 2:31 [...] Result [facility] [address] [address] [place] [address] * POCT glucose (12/31/2024 11:45 PM CDT) Glucose, POC 143 70 - 199 mg/dL POC Performer [id number] CERNER CH Blood 12/31/2024 11:4 5 PM CDT 12/31/2024 11:45 PM CDT Angel Gonzalez MD LAB POCT ORDERABLES - DEVICE Final Result Performing Organization Address [facility] Co de Phone Number ARON BHAT [address] [address] [facility] [place] [address] * POCT glucose (12/31/2024 9:49 PM CDT) Glucose, POC 131 70 - 199 mg/dL POC Performer [id number] CERNER CH Blood 12/31/2024 9:49 PM CDT 12/31/2024 9:49 PM CDT Angel Gonzalez MD LAB POCT ORDERABLES - DEVICE Final Result Performing Organization Address [facility] de Phone Number ARON BHAT [address] [address] [facility] [place] [address] * POCT glucose (12/31/2024 8:18 PM CDT) Glucose, POC 106 70 - 199 mg/dL POC Performer [id number] CERNER CH Blood 12/31/2024 8:18 PM CDT 12/31/2024 8:18 PM CDT Angel Gonzalez MD LAB POCT ORDERABLES - DEVICE Final Result Performing Organization Address [facility] Co de Phone Number ARON BHAT [address] [address] [facility] [place] [address] * Critical Care (12/31/2024 7:12 PM CDT) [...] plan with the ICU team and other medical/men's custom hair piece consultant staff, making frequent assessments and decisions [...] 104 70 - 199 mg/dL POC Performer [id number] ARON BHAT Blood 12/31/2024 6:43 PM CDT 12/31/2024 6:43 PM CDT us Angel Gonzalez MD LAB POCT ORDERABLES - DEVICE Final Result ARON [address] [address] [place] [address] * eGFR (12/31/2024 5:57 PM CDT) Pathologist [facility] eGFR 62 >=60 mL/min/1. 73 m2 Comment: [...] esult [facility] [address] [address]lene [address] [place] [address] * (ABNORMAL) CBC without differential (12/31/2024 5:57 PM CDT) WBC 5.29 3.80 - 9.90 K/cumm Hgb 8.4(L) 13.0 - 17.5 g/dL [facility] Hct 24.8(L) 38.9 - 50.3 % [facility] Plt 94(L) 150 - 400 K/cumm [facility] MPV 11.0 9.1 - 12.3 fL [facility] RBC 2.82(L) 4.30 - 5.80 M/cumm [facility] MCV 87.9 81.3 - 96.4 fL [facility] MCH 29.8 27.1 - 33.3 pg [facility] MCHC 33.9 32.3 - 35.7 g/dL [facility] RDW CV 14.2 11.1 - 14.9 % [facility] RDW SD 45.2 35.7 - 48.1 fL [facility] NRBC abs 0.00 0.00 - 0.01 K/cumm [facility] Blood 12/31/2024 5:57 PM CDT 12/31/2024 6:07 PM CDT us Angel Gonzalez MD LAB BLOOD ORDERABLES Final R esult ARON BHAT [address] Kaylene Val[address] [place] [address] * (ABNORMAL) Basic metabolic panel (12/31/2024 5:57 PM CDT) Sodium 149(H) 135 - 145 mmol/L Potassium, pl 3.6 3.3 - 4.9 mmol/L [facility] Chloride 112(H) 97 - 110 mmol/L [facility] CO2 25 22 - 32 mmol/L [facility] Anion gap 12 2 - 15 mmol/L [facility] BUN 19 6 - 25 mg/dL [facility] Creatinine 1.20 0.80 - 1.30 mg/dL [facility] Comment:Icteric sample, test results may be affected. Glucose 104 70 - 199 mg/dL [facility] OF [...] [facility] Blood 12/31/2024 5:57 PM CDT 12/31/2024 6:06 PM CDT us Angel Gonzalez MD LAB BLOOD ORDERABLES Final R esult ARON BHAT [address] [address] Val[address] [place] [address] * Transfuse platelets (12/31/2024 5:28 PM CDT) Blood us Angel Gonzalez MD BLOOD TRANSFUSION ORDERABLES Final Result Performing Organization Address [facility] Co de Phone Number ARON [address] [place] [address] * Calcium, ionized, whole blood (12/31/2024 5:04 PM CDT) Ca, ionized, bld 4.67 4.50 - 5.10 mg/dL Blood 12/31/2024 5:04 PM CDT 12/31/2024 6:05 PM CDT us Maureen Martinez NP LAB BLOOD ORDERABLES Fin al Result Performing Organization Address [facility] de Phone Number ARON [address] [address] [place] [address] * Clinical pathology report (12/31/2024 5:04 PM CDT) Miscellaneous 12/31/2024 5:0 4 PM CDT 01/01/2025 8:43 AM CDT Narrative 01/01/2025 11:10 AM CDT EPIC results best viewed via link to PDF [facility] Department of Pathology [address] [place] [id number] Final Report Note to Patients: This [...] the details. Patient Name: DENISE JAMES Address: [facility] [address], [place] [address] Gender: M : 1945 (Age: 79) Service: Cardiothoracic Location: [facility] #: [id number] Patient Type: [facility] Taken: 12/31/2024 Received: 01/01/2025 Accessioned: 01/01/2025 Physician(s): [...] determined by the Surgical Pathology Department at [facility] as part of an ongoing data quality consultant program and in compliance with federally mandated [...] characteristics determined by the Surgical Pathology Department [facility]. It has not been cleared or approved by the U. S. Food and Drug Administration. REPORT IMAGES AND SCANNED DOCUMENTS, IF INCLUDED, ONLY VIEWABLE IN PDF VERSION OF REPORTe o us Maureen Martinez NP LAB PATHOLOGY ORDERABLES Final Result * POCT glucose (12/31/2024 4:52 PM CDT) Glucose, POC 105 70 - 199 mg/dL POC Performer [id number] CERNER CH Blood 12/31/2024 4:52 PM CDT 12/31/2024 4:52 PM CDT Angel Gonzalez MD LAB POCT ORDERABLES - DEVICE Final Result Performing Organization Address [facility] Co de Phone Number ARON [address] [address] [employer] [place], [place] [id number] * POCT glucose (12/31/2024 3:46 PM CDT) Glucose, POC 118 70 - 199 mg/dL POC Performer [id number] CERNER CH Blood 12/31/2024 3:46 PM CDT 12/31/2024 3:46 PM CDT Angel Gonzalez MD LAB POCT ORDERABLES - DEVICE Final Result Performing Organization Address [facility] de Phone Number LETIBERTO [address] Kaylene [place] [address] * POCT glucose (12/31/2024 2:59 PM CDT) Glucose, POC 110 70 - 199 mg/dL POC Performer [id number] CERNER CH Blood 12/31/2024 2:59 PM CDT 12/31/2024 2:59 PM CDT Angel Gonzalez MD LAB POCT ORDERABLES - DEVICE Final Result Performing Organization Address [facility]/State/ZIP Co de Phone Number ARON BHAT [address] [address] [facility] [place] [address] * POCT glucose (12/31/2024 1:43 PM CDT) Glucose, POC 118 70 - 199 mg/dL POC Performer [id number] CERNER CH Blood 12/31/2024 1:43 PM CDT 12/31/2024 1:43 PM CDT Angel Gonzalez MD LAB POCT ORDERABLES - DEVICE Final Result Performing Organization Address [facility] Co de Phone Number ARON BHAT [address] [address] [facility] [place] [address] * POCT glucose (12/31/2024 12:47 PM CDT) Glucose, POC 123 70 - 199 mg/dL POC Performer [id number] CERNER CH Blood 12/31/2024 12:4 7 PM CDT 12/31/2024 12:47 PM CDT Angel Gonzalez MD LAB POCT ORDERABLES - DEVICE Final Result Performing Organization Address [facility] Co de Phone Number ARON BHAT [address] Kay[address] [facility] [place] [address] * POCT glucose (12/31/2024 11:46 AM CDT) Glucose, POC 131 70 - 199 mg/dL POC Performer [id number] CERNER CH Blood 12/31/2024 11:4 6 AM CDT 12/31/2024 11:46 AM CDT Angel Gonzalez MD LAB POCT ORDERABLES - DEVICE Final Result Performing Organization Address [facility] Co de Phone Number ARON BHAT [address] Kaylene [facility] [place] [address] * POCT glucose (12/31/2024 10:38 AM CDT) Glucose, POC 136 70 - 199 mg/dL POC Performer [id number] CERNER CH Blood 12/31/2024 10:3 8 AM CDT 12/31/2024 10:38 AM CDT Angel Gonzalez MD LAB POCT ORDERABLES - DEVICE Final Result Performing Organization Address [facility] de Phone Number ARON BHAT [address] [place] [address] * (ABNORMAL) Blood gas, arterial (12/31/2024 10:33 [...] ORDERABLES Final R esult Performing Organization Address [facility] de Phone Number ARON BHAT [address] [place] [address] * eGFR (12/31/2024 10:09 AM CDT) eGFR [...] Gonzalez MD LAB BLOOD ORDERABLES Final R [facility] Performing Organization Address [facility] Co de Phone Number ARON BHAT [address] [address] [employer] [place], [place] [id number] * aPTT (12/31/2024 10:09 AM CDT) aPTT [...] ORDERABLES Final R esult Performing Organization Address City/[facility] Co de Phone Number ARON [address] [place] [address] * (ABNORMAL) Protime-INR (12/31/2024 10:09 AM CDT) [...] ORDERABLES Final R esult Performing Organization Address City/[facility]/ZIP Co de Phone Number ARON BHAT [address] [place] [address] * (ABNORMAL) CBC without differential (12/31/2024 10:09 AM CDT) WBC 6.37 3.80 - 9.90 K/cumm Hgb 9.5(L) 13.0 - 17.5 g/dL [facility] Hct 27.5(L) 38.9 - 50.3 % [facility] Plt 109(L) 150 - 400 K/cumm [facility] MPV 10.9 9.1 - 12.3 fL [facility] RBC 3.17(L) 4.30 - 5.80 M/cumm [facility] MCV 86.8 81.3 - 96.4 fL [facility] MCH 30.0 27.1 - 33.3 pg [facility] MCHC 34.5 32.3 - 35.7 g/dL [facility] RDW CV 14.2 11.1 - 14.9 % [facility] RDW SD 45.2 35.7 - 48.1 fL [facility] NRBC abs 0.00 0.00 - 0.01 K/cumm [facility] Blood 12/31/2024 10:0 9 AM CDT 12/31/2024 11:00 AM CDT Angel Gonzalez MD LAB BLOOD ORDERABLES Final R esult Performing Organization Address City/[facility]/ZIP Co de Phone Number ARON BHAT [address] [address] Val[address] Department [employer] [place] [address] * (ABNORMAL) Hepatic function panel [...] MD LAB BLOOD ORDERABLES Jazmín l Result [facility] [address] Kay[address] Valdez [place] [address] * (ABNORMAL) Basic metabolic panel (12/31/2024 10:09 [...] affected. Glucose 132 70 - 199 mg/dL [facility] Comment: Interpretive Data Fasting glucose >/= 126 [...] ORDERABLES Final R esult Performing Organization Address [facility] Co de Phone Number ARON BHAT [address] [address] [place] [address] * POCT glucose (12/31/2024 9:28 AM CDT) Glucose, POC 135 70 - 199 mg/dL POC Performer [id number] CERNER CH Blood 12/31/2024 9:28 AM CDT 12/31/2024 9:28 AM CDT Result [facility] Angel Gonzalez MD LAB POCT ORDERABLES - DEVICE Final Result Performing Organization Address [facility] de Phone Number ARON BHAT [address] [place] [address] * (ABNORMAL) Blood gas, arterial (12/31/2024 9:24 [...] ORDERABLES Final R esult Performing Organization Address [facility] Co de Phone Number ARON BHAT [address] Kaylene [place] [address] * POCT glucose (12/31/2024 8:26 AM CDT) Glucose, POC 97 70 - 199 mg/dL POC Performer [id number] [facility] Blood 12/31/2024 8:26 AM CDT 12/31/2024 8:26 AM CDT us Angel Gonzalez MD LAB POCT ORDERABLES - DEVICE Final Result Performing Organization Address [facility] Phone Number ARON BHAT [address] Kaylene [place] [address] * ECG 12 lead (12/31/2024 7:20 AM CDT) 12/31/2024 7:20 AM CDT Narrative [facility] - 12/31/2024 4:48 PM CDT Vent Rate: 80 bpm RR Interval: 743 msec WV Interval: 252 msec QRS Duration: 82 msec QT Interval: 399 msec QTC Interval: 435 msec P-R-T [employer]: 84 - 0 - 27 degrees IMPRESSION: SINUS RHYTHM WITH FIRST DEGREE AV BLOCK LOW QRS VOLTAGE IN EXTREMITY LEADS [QRS DEFLECTION < 0.5 mV IN LIMB LEADS] NONSPECIFIC ST \T\ T-WAVE ABNORMALITY ABNORMAL ECG NO CHANGE FROM PREVIOUS TRACING NOTED Electronically Signed By: Harris Caro MD us Angel Gonzalez MD ECG ORDERABLES Final Result Performing Organization Address [facility] de Phone Number [facility] [employer] [facility] * Critical Care (12/31/2024 7:00 AM CDT) Narrative Gayathri Braga MD - 12/31/2024 7:00 AM CDT Gayathri Braga MD 01/03/2025 6:24 PM Critical Care Performed by: Muareen Martinez NP Authorized by: Maureen Martinez NP [...] plan with the ICU team and other medical/men's custom hair piece consultant staff, making frequent assessments and decisions [...] in the medical record us Maureen Martinez INTELLIGENCE GROUP SUPERVISOR IN CLINIC/BEDSIDE ORDERA BLES Final Result * POCT glucose (12/31/2024 6:35 AM CDT) Glucose, POC 107 70 - 199 mg/dL POC Performer [id number] ARON BHAT Blood 12/31/2024 6:35 AM CDT 12/31/2024 6:35 AM CDT us Angel Gonzalez MD LAB POCT ORDERABLES - DEVICE Final Result Performing Organization Address City/State/[facility] Co de Phone Number ARON [address] Kaylene Department of Laboratories [place], [place] [id number] * XR Chest 1 View - Portable [...] in good position. The tip of the Zion-Maryanne catheter is in the undivided main pulmonary [...] in good position. The tip of the Zion-Maryanne catheter is in the undivided main pulmonary artery. Bilateral thoracostomy tubes and mediastinal drain in place. IMPRESSION: Findings as described above. Electronically signed by: Sangeeta Harmon M.D. us Maureen Martinez INTELLIGENCE GROUP SUPERVISOR IMG XR PROCEDURES Final Result * POCT glucose (12/31/2024 5:31 AM CDT) Glucose, POC 123 70 - 199 mg/dL POC Performer [id number] ARON BHAT Blood 12/31/2024 5:31 AM CDT 12/31/2024 5:31 AM CDT us Angel Gonzalez MD LAB POCT ORDERABLES - DEVICE Final Result ARON BHAT [address] Kaylene Valdez [place] [address] * Calcium, ionized, whole blood (12/31/2024 5:19 AM CDT) Ca, ionized, bld 4.69 4.50 - 5.10 mg/dL Blood 12/31/2024 5:19 AM CDT 12/31/2024 5:47 AM CDT Angel Gonzalez MD LAB BLOOD ORDERABLES Final R esult Performing Organization Address [facility] Co de Phone Number ARON BHAT [address] Kaylene [facility] [place] [address] * (ABNORMAL) Blood gas, arterial (12/31/2024 5:19 AM CDT) pH, Art 7.46(H) 7.35 - 7.45 PCO2, Arterial 37 35 - 45 mmHg CERNER CH PO2, Arterial 91 83 - 108 mmHg [facility] HCO3 Art (Calculated) 27 20 - 30 mmol/L CERNER CH BE, art 2 mmol/L CERNER CH Comment: Interpretive Data No Reference Range Established Current Interpretive Data was last revised on 2017 O2 Sat Art (Measured) 97(H) 90 - 95 % [facility] Blood 12/31/2024 5:19 AM CDT 12/31/2024 5:35 AM CDT Angel Gonzalez MD LAB BLOOD ORDERABLES Final R esult Performing Organization Address [facility] de Phone Number ARON BHAT [address] Kay[address] [facility] [place] [address] * POCT glucose (12/31/2024 4:25 AM CDT) Glucose, POC 122 70 - 199 mg/dL POC Performer [id number] [facility] Blood 12/31/2024 4:25 AM CDT 12/31/2024 4:25 AM CDT Angel Gonzalez MD LAB POCT ORDERABLES - DEVICE Final Result Performing Organization Address [facility] de Phone Number ARON BHAT [address] Kay[address] [facility] [place] [address] * Oxyhemoglobin, central venous (12/31/2024 4:04 AM CDT) Oxyhemoglobin, CV 62.5 % Comment: Interpretive Data No reference range established. Current interpretive data was last revised 2019. Blood 12/31/2024 4:04 AM CDT 12/31/2024 4:29 AM CDT Angel Gonzalez MD LAB BLOOD ORDERABLES Final R esult Performing Organization Address City/[facility] Co de Phone Number ARON BHAT [address] Kaylene [place] [address] * Transfuse RBC (12/31/2024 3:57 AM CDT) Blood Angel Gonzalez MD BLOOD TRANSFUSION ORDERABLES Final Result Performing Organization Address [facility] de Phone Number LETIBERTO BHAT [address] Kaylene [place] [address] * eGFR (12/31/2024 3:46 AM CDT) eGFR [...] LAB BLOOD ORDERABLES Final R esult ARON [address] Kaylene Valdez [place] [address] * (ABNORMAL) Differential, auto (12/31/2024 3:46 AM [...] [facility] Neutrophil pct 88.2 % [facility] Comment: Interpretive Data Percent cell count reference ranges are not reported, since discordance with absolute values may lead to misinterpretation of CBC data. Current Interpretive Data was last revised on 2017. Imm gran pct 0.4 % [facility] Comment: Interpretive Data Percent cell count reference ranges are not reported, since discordance with absolute values may lead to misinterpretation of CBC data. Current Interpretive Data was last revised on 2017. Lymphocyte pct 3.5 % [facility] Comment: Interpretive Data Percent cell count reference ranges are not reported, since discordance with absolute values may lead to misinterpretation of CBC data. Current Interpretive Data was last revised on 2017. Monocyte pct 7.9 % [facility] Comment: Interpretive Data Percent cell count reference ranges are not reported, since discordance with absolute values may lead to misinterpretation of CBC data. Current Interpretive Data was last revised on 2017. Eosinophil pct 0.0 % [facility] Comment: Interpretive Data Percent cell count reference ranges are not reported, since discordance with absolute values may lead to misinterpretation of CBC data. Current Interpretive Data was last revised on 2017. Basophil pct 0.0 % [facility] Comment: Interpretive Data Percent cell count reference ranges are not reported, since discordance with absolute values may lead to misinterpretation of CBC data. Current Interpretive Data was last revised on 2017. Blood 12/31/2024 3:46 AM CDT 12/31/2024 3:54 AM CDT us Angel Gonzalez MD LAB BLOOD ORDERABLES Final R esult Performing Organization Address City/[facility] Co de Phone Number [facility] [address] Kaylene Department of [place], [place] [phone] * Thyroid Function Ellis (12/31/2024 3:46 AM CDT) Pathologist [facility] TSH 0.92 0.30 - 4.20 mcIUnit/mL Blood 12/31/2024 3:46 AM CDT 12/31/2024 3:54 AM CDT us Maureen Martinez NP LAB BLOOD ORDERABLES Fin al Result Performing Organization Address [facility] de Phone Number [facility] [address] Kaylene [place] [address] * (ABNORMAL) CBC with auto differential (12/31/2024 3:46 AM CDT) Pathologist [facility] WBC 7.17 3.80 - 9.90 K/cumm Hgb 9.2(L) 13.0 - 17.5 g/dL [facility] Hct 26.5(L) 38.9 - 50.3 % [facility] Plt 127(L) 150 - 400 K/cumm [facility] MPV 10.0 9.1 - 12.3 fL [facility] RBC 3.04(L) 4.30 - 5.80 M/cumm [facility] MCV 87.2 81.3 - 96.4 fL [facility] MCH 30.3 27.1 - 33.3 pg [facility] MCHC 34.7 32.3 - 35.7 g/dL [facility] RDW CV 14.0 11.1 - 14.9 % [facility] RDW SD 44.1 35.7 - 48.1 fL [facility] NRBC abs 0.00 0.00 - 0.01 K/cumm [facility] Blood 12/31/2024 3:46 AM CDT 12/31/2024 3:54 AM CDT Angel Gonzalez MD LAB BLOOD ORDERABLES Final R esult Performing Organization Address [facility] Co de Phone Number [facility] [address] [address] [place] [address] * (ABNORMAL) Vitamin D 25 hydroxy (12/31/2024 3:46 AM CDT) Vitamin D 25-OH 17(L) 30 - 80 ng/mL Blood 12/31/2024 3:46 AM CDT 12/31/2024 3:58 AM CDT Maureen Martinez INTELLIGENCE GROUP SUPERVISOR LAB BLOOD ORDERABLES Fin al Result Performing Organization Address [facility] de Phone Number [facility] [address] Kaylene [facility] [place] [address] * (ABNORMAL) Protime-INR (12/31/2024 3:46 AM CDT) PT 13.3(H) 9.7 - 13.0 sec INR 1.23(H) 0.90 - 1.20 [facility] Comment: Interpretive data Oral anticoagulant therapeutic ranges: Venous thromboembolism prophylaxis or treatment: 2.0-3.0 CARDIOLOGY Standard range: 2.0-3.0 High-intensity range: 2.5-3.5 Refer to indication-specific guidelines for appropriate target ranges for prosthetic heart valve replacement. Current interpretive data was last revised on 2019. Blood 12/31/2024 3:46 AM CDT 12/31/2024 3:54 AM CDT Maureen Martinez NP LAB BLOOD ORDERABLES Fin al Result Performing Organization Address [facility] de Phone Number ARON BHAT [address] [facility] [place] [address] * Fibrinogen (12/31/2024 3:46 AM CDT) Fibrinogen 301 170 - 400 mg/dL Blood 12/31/2024 3:46 AM CDT 12/31/2024 3:54 AM CDT us Maureen Martinez INTELLIGENCE GROUP SUPERVISOR LAB BLOOD ORDERABLES Fin al Result Performing Organization Address [facility] de Phone Number ARON BHAT [address] [facility] [place] [address] * Phosphorus (12/31/2024 3:46 AM CDT) Phosphorus, pl 3.2 2.3 - 4.5 mg/dL Blood 12/31/2024 3:46 AM CDT 12/31/2024 3:54 AM CDT us Maureen Martinez INTELLIGENCE GROUP SUPERVISOR LAB BLOOD ORDERABLES Fin al Result Performing Organization Address [facility] de Phone Number ARON BHAT [address] [address] [facility] [place] [address] * Magnesium (12/31/2024 3:46 AM CDT) Magnesium 2.3 1.4 - 2.5 mg/dL Blood 12/31/2024 3:46 AM CDT 12/31/2024 3:54 AM CDT Angel Gonzalez MD LAB BLOOD ORDERABLES Final R esult Performing Organization Address [facility] de Phone Number ARON BHAT [address] [facility] [place] [address] * Hemoglobin A1c (12/31/2024 3:46 AM CDT) [...] and children were not included. (Diabetes Care 31:[id number], 2008). The eAG is not equivalent to a fasting glucose. Blood 12/31/2024 3:46 AM CDT 12/31/2024 3:54 AM CDT us Maureen Martinez NP LAB BLOOD ORDERABLES Uriel jamil Result - Final ARON BHAT [address] Kaylene Valdez [place] [address] * (ABNORMAL) Lipid panel (12/31/2024 3:46 AM [...] NP LAB BLOOD ORDERABLES Abiodun al Result [facility] [address] [address]lene [place] [address] * (ABNORMAL) Basic metabolic panel (12/31/2024 3:46 AM CDT) Sodium 151(H) 135 - 145 mmol/L Potassium, pl 3.8 3.3 - 4.9 mmol/L CERNER Chloride 116(H) 97 - 110 mmol/L CERNER CO2 26 22 - 32 mmol/L CERNER Anion gap 9 2 - 15 mmol/L CERNER BUN 20 6 - 25 mg/dL [facility] Creatinine 1.11 0.80 - 1.30 mg/dL [facility] Comment:Icteric sample, test results may be affected. [...] ORDERABLES Final R esult Performing Organization Address [facility] Co de Phone Number ARON BHAT [address] Kaylene Department [place], [place] [id number] * POCT glucose (12/31/2024 3:24 AM CDT) Glucose, POC 119 70 - 199 mg/dL POC Performer [id number] CERNER CH Blood 12/31/2024 3:24 AM CDT 12/31/2024 3:24 AM CDT us Angel Gonzalez MD LAB POCT ORDERABLES - DEVICE Final Result Performing Organization Address [facility] Co de Phone Number ARON BHAT [address] [address] [place] [address] * POCT glucose (12/31/2024 2:19 AM CDT) Glucose, POC 141 70 - 199 mg/dL POC Performer [id number] [facility] Blood 12/31/2024 2:19 AM CDT 12/31/2024 2:19 AM CDT us Angel Gonzalez MD LAB POCT ORDERABLES - DEVICE Final Result Performing Organization Address [facility] Co de Phone Number ARON BHAT [address] Kaylene [place]dez [place] [address] * Transfuse plasma Standard plasma (12/31/2024 1:27 AM CDT) Blood Angel Gonzalez MD BLOOD TRANSFUSION ORDERABLES Final Result Performing Organization Address [facility] Co de Phone Number ARON BHAT [address] [facility] [place], [place] [id number] * aPTT (12/31/2024 1:16 AM CDT) aPTT [...] ORDERABLES Final R esult Performing Organization Address City/[facility] Co de Phone Number ARON BHAT [address] Kaylene Valdez Department [employer] [place] [address] * (ABNORMAL) Protime-INR (12/31/2024 1:16 AM CDT) [...] ORDERABLES Final R esult Performing Organization Address City/[facility] Co de Phone Number ARON BHAT [address] [place] [address] * Fibrinogen (12/31/2024 1:16 AM CDT) Fibrinogen 273 170 - 400 mg/dL Blood 12/31/2024 1:16 AM CDT 12/31/2024 1:29 AM CDT Angel Gonzalez MD LAB BLOOD ORDERABLES Final R esult Performing Organization Address City/[facility] Co de Phone Number ARON BHAT [address] Kaylene Valdez [place] [address] * POCT glucose (12/31/2024 1:15 AM CDT) Glucose, POC 106 70 - 199 mg/dL POC Performer [id number] [facility] CH Blood 12/31/2024 1:15 AM CDT 12/31/2024 1:15 AM CDT Angel Gonzalez MD LAB POCT ORDERABLES - DEVICE Final Result [facility] [address] [facility] [place] [address] * Prepare RBC (12/31/2024 1:13 AM CDT) Product code [id number] CERNER CH Unit Number [id number] CERNER CH Product Blood Type BNEG CERNER CH Dispense Status PRESUMED TRANSFUSED [facility]ER CH Product code F4149Z21 [facility]ER CH Unit Number [id number] [facility]ER CH Product Blood Type BNEG CERNER CH Dispense Status RETURNED [facility]ERNER CH Product code [id number] Unit Number [id number] CERNER CH Product Blood Type BNEG CERNER CH Dispense Status RETURNED CERNER CH Product code I8023T68 CERNER CH Unit Number [id number] CERNER CH Product Blood Type BNEG CERNER CH Dispense Status PRESUMED TRANSFUSED CERNER CH Product code W8113H56 CERNER CH Unit Number [id number] CERNER CH Product Blood Type BNEG CERNER CH Dispense Status RETURNED CERNER CH Blood 12/31/2024 1:13 AM CDT 12/31/2024 1:14 AM CDT Angel Gonzalez MD BLOOD BANK PRODUCT ORDERABLE S Final Result ARON BHAT [address] [address] Val[address] [place] [address] * Transfuse platelets (12/31/2024 12:07 AM CDT) Blood Angel Gonzalez MD BLOOD TRANSFUSION ORDERABLES Final Result Performing Organization Address [facility] de Phone Number ARON BHAT [address] [address] [facility] [place], [place] [id number] * POCT glucose (12/30/2024 11:59 PM CDT) Glucose, POC 159 70 - 199 mg/dL POC Performer [id number] [facility] Blood 12/30/2024 11:5 9 PM CDT 12/30/2024 11:59 PM CDT Angel Gonzalez MD LAB POCT ORDERABLES - DEVICE Final Result Performing Organization Address [facility] de Phone Number ARON BHAT [address] [address] [facility] [place] [address] * Potassium, whole blood (12/30/2024 [...] ORDERABLES Final R esult Performing Organization Address [facility] de Phone Number ARON BHAT [address] [address] Department [place], [place] [id number] * (ABNORMAL) CBC without differential (12/30/2024 11:54 [...] ORDERABLES Final R esult Performing Organization Address City/[facility] Co de Phone Number [facility] [address] Kaylene [place] [address] * (ABNORMAL) Blood gas, arterial (12/30/2024 11:54 [...] ORDERABLES Final R esult Performing Organization Address City/[facility] Co de Phone Number ARON BHAT [address] Kaylene [facility] [place] [address] * Transfuse plasma Standard plasma (12/30/2024 11:02 PM CDT) Blood us Angel Gonzalez MD BLOOD TRANSFUSION ORDERABLES Edited Result - Final Performing Organization Address [facility] Co de Phone Number ARON BHAT [address] [address]lene [place] [address] * POCT glucose (12/30/2024 10:57 PM CDT) Glucose, POC 174 70 - 199 mg/dL POC Performer [id number] ARON Blood 12/30/2024 10:5 7 PM CDT 12/30/2024 10:57 PM CDT us Angel Gonzalez MD LAB POCT ORDERABLES - DEVICE Final Result Performing Organization Address [facility] Co de Phone Number ARON BHAT [address] Kaylene [place] [address] * Transfuse platelets (12/30/2024 10:16 PM CDT) Blood us Angel Gonzalez MD BLOOD TRANSFUSION ORDERABLES Final Result Performing Organization Address [facility] Co de Phone Number ARON BHAT [address] [place] [address] * POCT glucose (12/30/2024 10:01 PM CDT) Glucose, POC 174 70 - 199 mg/dL POC Performer [id number] ARON Blood 12/30/2024 10:0 1 PM CDT 12/30/2024 10:01 PM CDT us Angel Gonzalez MD LAB POCT ORDERABLES - DEVICE Final Result Performing Organization Address City/[facility]/ZIP Co de Phone Number ARON BHAT [address] Kaylene [place] [address] * POCT glucose (12/30/2024 8:58 PM CDT) Glucose, POC 185 70 - 199 mg/dL POC Performer [id number] ARON Blood 12/30/2024 8:58 PM CDT 12/30/2024 8:58 PM CDT Angel Gonzalez MD LAB POCT ORDERABLES - DEVICE Final Result Performing Organization Address [facility] Co de Phone Number ARON BHAT [address] [address]lene [place] [address] * Calcium, ionized, whole blood (12/30/2024 8:51 PM CDT) Ca, ionized, bld 4.99 4.50 - 5.10 mg/dL Blood 12/30/2024 8:51 PM CDT 12/30/2024 9:07 PM CDT Angel Gonzalez MD LAB BLOOD ORDERABLES Final R esult Performing Organization Address [facility] Co de Phone Number ARON BHAT [address] Kaylene [place] [address] * eGFR (12/30/2024 8:51 PM CDT) eGFR [...] ORDERABLES Final R esult Performing Organization Address [facility] Co de Phone Number ARON [address] [place] [address] * aPTT (12/30/2024 8:51 PM [...] ORDERABLES Final R esult Performing Organization Address [facility] Co de Phone Number LETIBERTO [address] Kaylene Valdez [place], [place] [phone] * Fibrinogen (12/30/2024 8:51 PM CDT) Fibrinogen 234 170 - 400 mg/dL Blood 12/30/2024 8:51 PM CDT 12/30/2024 9:04 PM CDT Angel Gonzalez MD LAB BLOOD ORDERABLES Final R esult Performing Organization Address [facility] Co de Phone Number ARON [address] Kaylene Valdez Department [place] [place] [address] * (ABNORMAL) CBC without differential (12/30/2024 8:51 [...] LAB BLOOD ORDERABLES Final R esult ARON [address] Kaylene [place] [address] * (ABNORMAL) Blood gas, arterial (12/30/2024 8:51 [...] ORDERABLES Final R esult Performing Organization Address City/[facility]/ZIP Co de Phone Number ARON BHAT [address] Kaylene Department [place] [place] [address] * (ABNORMAL) Basic metabolic panel (12/30/2024 8:51 PM CDT) Sodium 148(H) 135 - 145 mmol/L Potassium, pl 3.8 3.3 - 4.9 mmol/L [facility] Chloride 112(H) 97 - 110 mmol/L [facility] CO2 20(L) 22 - 32 mmol/L [facility] Anion gap 16(H) 2 - 15 mmol/L [facility] BUN 19 6 - 25 mg/dL [facility] Creatinine 0.85 0.80 - 1.30 mg/dL [facility] Comment:Icteric sample, test results may be affected. Glucose 183 70 - 199 mg/dL [facility] [...] 2022. Calcium 8.9 8.5 - 10.3 mg/dL [facility] Blood 12/30/2024 8:51 PM CDT 12/30/2024 9:03 PM CDT us Angel Gonzalez MD LAB BLOOD ORDERABLES Final R esult Performing Organization Address [facility]/ZIP Co de Phone Number ARON BHAT [address] Kaylene [place] [address] * Transfuse RBC (12/30/2024 8:31 PM CDT) Blood us Angel Gonzalez MD BLOOD TRANSFUSION ORDERABLES Final Result Performing Organization Address [facility] Co de Phone Number LETIBERTO BHAT [address] [facility] [place] [address] * Transfuse RBC (12/30/2024 7:59 PM CDT) Blood Angel Gonzalez MD BLOOD TRANSFUSION ORDERABLES Final Result Performing Organization Address [facility] Co de Phone Number ARON [address] [facility] [place] [address] * Transfuse platelets (12/30/2024 7:58 PM CDT) Blood Angel Gonzalez MD BLOOD TRANSFUSION ORDERABLES Final Result Performing Organization Address [facility] Co de Phone Number RAON [address] Kaylene Valdez [place] [address] * Transfuse platelets (12/30/2024 7:57 PM CDT) Blood Angel Gonzalez MD BLOOD TRANSFUSION ORDERABLES Final Result Performing Organization Address [facility] Co de Phone Number ARON [address] Kaylene [place] [address] * POCT glucose (12/30/2024 7:52 PM CDT) Glucose, POC 161 70 - 199 mg/dL POC Performer [id number] ARON Blood 12/30/2024 7:52 PM CDT 12/30/2024 7:52 PM CDT us Angel Gonzalez MD LAB POCT ORDERABLES - DEVICE Final Result Performing Organization Address [facility] Co de Phone Number ARON [address] Kaylene Valdez Department [place] [address] * Prepare RBC: 4 Units (12/30/2024 7:23 PM CDT) Product code [id number] Unit Number [id number] 7-C CERNER CH Product Blood Type BNEG CERNER CH Dispense Status RETURNED CERNER CH Product code V4534H49 CERNER CH Unit Number [id number] 9-8 CERNER CH Product Blood Type BNEG CERNER CH Dispense Status RETURNED CERNER CH Blood 12/30/2024 7:23 PM CDT Narrative CERNER CH - 12/31/2024 4:15 AM CDT Are special requirements needed? (All products are leukoreduced and CMV- safe)- >No Date required:-20241230 LRRBC # of Iiazg-1-Mughm Reasons:-Hemorrhagic shock/Life-threatening bleeding} Angel Gonzalez MD BLOOD BANK PRODUCT ORDERABLE S Final Result ARON [address] [address] [facility] [place] [address] * Critical Care (12/30/2024 7:19 PM CDT) [...] plan with the ICU team and other medical/men's custom hair piece consultant staff, making frequent assessments and decisions [...] Units (12/30/2024 7:04 PM CDT) Product code B3853D30 CERNER CH Unit Number [id number] CERNER CH Product Blood Type ANEG CERNER CH Dispense Status PRESUMED TRANSFUSED CERNER CH Product code O4389G71 Unit Number [id number] CERNER CH Product Blood Type BPOS CERNER CH Dispense Status PRESUMED TRANSFUSED CERNER CH Product code N7605A36 CERNER CH Unit Number [id number] CERNER CH Product Blood Type OPOS CERNER CH Dispense Status PRESUMED TRANSFUSED CERNER CH Blood Venous blood specimen / Unknown 12/30/2024 7:04 PM CDT Narrative [facility] - 01/03/2025 10:16 PM CDT Are special requirements needed? (all products are leukoreduced)->No Date required:-20241230 PLT # of Units:-3-Units Reasons:-Major active bleeding} Angel Gonzalez MD BLOOD BANK PRODUCT ORDERABLE S Final Result ARON [address] Kaylene [place] [address] * POCT glucose (12/30/2024 6:42 PM CDT) Glucose, POC 152 70 - 199 mg/dL POC Performer [id number] CERNER CH Blood 12/30/2024 6:42 PM CDT 12/30/2024 6:42 PM CDT Angel Gonzalez MD LAB POCT ORDERABLES - DEVICE Final Result Performing Organization Address City/[facility]/ZIP Co de Phone Number ARON BHAT [address] [place] [address] * Prepare platelets (12/30/2024 6:29 PM CDT) Product code V7143Q11 CERNER CH Unit Number [id number] CERNER CH Product Blood Type APOS CERNER CH Dispense Status PRESUMED TRANSFUSED CERNER CH Product code L0173Z47 Unit Number [id number] CERNER CH Product Blood Type APOS CERNER CH Dispense Status PRESUMED TRANSFUSED CERNER CH Blood 12/30/2024 6:29 PM CDT 12/30/2024 6:38 PM CDT Conner Kurtz MD BLOOD BANK PRODUCT OR DERABLES Final Result Performing Organization Address [facility] Co de Phone Number ARON BHAT [address] Kaylene [place] [address] * Prepare plasma: 3 Units Standard plasma (12/30/2024 6:28 PM CDT) Product code T3628S55 Unit Number [id number] CERNER CH Product Blood Type BPOS CERNER CH Dispense Status PRESUMED TRANSFUSED CERNER CH Product code B2069J16 CERNER CH Unit Number [id number] CERNER CH Product Blood Type BPOS CERNER CH Dispense Status PRESUMED TRANSFUSED CERNER CH Product code N6113R99 CERNER CH Unit Number [id number] CERNER CH Product Blood Type BPOS [...] ORDERABLE S Final Result Performing Organization Address [facility] Co de Phone Number ARON BHAT [address] [place] [address] * Lactate (12/30/2024 6:25 PM CDT) Lactate 1.2 0.7 - 2.0 mmol/L Blood 12/30/2024 6:25 PM CDT 12/30/2024 6:48 PM CDT Angel Gonzalez MD LAB BLOOD ORDERABLES Final R esult Performing Organization Address [facility] de Phone Number LETIBERTO BHAT [address] Kaylene [facility] [place] [employer] [place], [place] [id number] * (ABNORMAL) Protime-INR (12/30/2024 6:25 PM CDT) [...] ORDERABLES Fin al Result Performing Organization Address [facility] Co de Phone Number ARON BHAT [address] Kaylene [facility] [place] [address] * Fibrinogen (12/30/2024 6:25 PM CDT) Fibrinogen 201 170 - 400 mg/dL Blood 12/30/2024 6:25 PM CDT 12/30/2024 6:48 PM CDT us Maureen Martinez NP LAB BLOOD ORDERABLES Fin al Result Performing Organization Address City/[facility]/ZIP Co de Phone Number ARON [address] [place] [address] * (ABNORMAL) CBC without differential (12/30/2024 6:25 [...] BLOOD ORDERABLES Final R esult ARON BHAT [address] [place] [address] * Type and screen (12/30/2024 6:25 PM CDT) Colton, indirect Negative ABO Rh B Negative CERNER CH Blood 12/30/2024 6:25 PM CDT 12/30/2024 7:12 PM CDT Narrative ARON - 12/30/2024 7:57 PM CDT Has the patient had Daratumumab or Isatuximab in the past 6 months?->Unknown Angel Gonzalez MD LAB BLOOD BANK TEST ORDERABL ES Final Result Performing Organization Address [facility] Co de Phone Number LETIBERTO BHAT [address] Kaylene [place] [address] * (ABNORMAL) Blood gas, arterial [...] ORDERABLES Final R esult Performing Organization Address [facility] de Phone Number LETIBERTO BHAT [address] Kaylene [place] [address] * Transfuse cryoprecipitate (pooled units) (12/30/2024 6:22 PM CDT) Blood Angel Gonzalez MD BLOOD TRANSFUSION ORDERABLES Final Result Performing Organization Address [facility]/ZIP Co de Phone Number LETIBERTO BHAT [address] Kaylene [place] [address] * Prepare RBC: 1 Units (12/30/2024 6:20 PM CDT) Product code P3185S30 Unit Number [id number] 7-K [facility] Product Blood Type BNEG [facility] Dispense Status RETURNED [facility] Blood 12/30/2024 6:20 PM CDT Narrative [facility] - 12/31/2024 1:13 AM CDT Are special requirements needed? (All products are leukoreduced and CMV- safe)- >No Date required:-20241230 LRRBC # of Hedtj-0-Fhvqh Reasons:-Hemorrhagic shock/Life-threatening bleeding} Angel Gonzalez MD BLOOD BANK PRODUCT ORDERABLE S Final Result Performing Organization Address [facility] Co de Phone Number ARON [address] Kaylene Department of [place], [place] [address] * Transfuse cryoprecipitate (pooled units) (12/30/2024 5:46 PM CDT) Blood Angel Gonzalez MD BLOOD TRANSFUSION ORDERABLES Final Result Performing Organization Address [facility] Co de Phone Number ARON [address] Kaylene Valdez [place] [address] * POCT glucose (12/30/2024 5:40 PM CDT) [facility] Signature Glucose, POC 149 70 - 199 mg/dL POC Performer [id number] [facility] Blood 12/30/2024 5:40 PM CDT 12/30/2024 5:40 PM CDT Angel Gonzalez MD LAB POCT ORDERABLES - DEVICE Final Result Performing Organization Address City/[facility]/ZIP Co de Phone Number ARON [address] Kaylene [place] [address] * Transfuse platelets (12/30/2024 5:30 PM CDT) Blood Angel Gonzalez MD BLOOD TRANSFUSION ORDERABLES Final Result Performing Organization Address City/[facility] Co de Phone Number [facility] [address] [place] [address] * Prepare RBC: 1 Units (12/30/2024 5:25 PM CDT) Product code [id number] Unit Number [id number] 5-O [facility] Product Blood Type BNEG [facility] Dispense Status RETURNED [facility] Blood 12/30/2024 5:25 PM CDT Narrative [facility] - 12/31/2024 4:15 AM CDT Are special requirements needed? (All products are leukoreduced and CMV- safe)- >No Date required:-20241230 LRRBC # of [id number] Reasons:-Hemorrhagic shock/Life-threatening bleeding} Angel Gonzalez MD BLOOD BANK PRODUCT ORDERABLE S Final Result Performing Organization Address [facility] Co de Phone Number [facility] [address] [place] [address] * Transfuse platelets (12/30/2024 5:16 PM CDT) Blood Angel Gonzalez MD BLOOD TRANSFUSION ORDERABLES Final Result Performing Organization Address [facility] Co de Phone Number [facility] [address] [place] [address] * Critical Care (12/30/2024 4:59 PM CDT) [...] plan with the ICU team and other medical/men's custom hair piece consultant staff, making frequent assessments and decisions [...] in the medical record us Maureen Martinez [employer] SUPERVISOR IN CLINIC/BEDSIDE ORDERA BLES Final Result * [...] Units (12/30/2024 4:47 PM CDT) Product code [id number] Unit Number [id number] CERNER CH Product Blood Type OPOS CERNER CH Dispense Status PRESUMED TRANSFUSED CERNER CH Product code I5164N91 CERNER CH Unit Number [id number] CERNER CH Product Blood Type APOS CERNER CH Dispense Status PRESUMED TRANSFUSED CERNER CH Blood Venous blood specimen / Unknown 12/30/2024 4:47 PM CDT Narrative CERNER CH - 12/30/2024 10:15 PM CDT Cryo # of Wzfmv-0-Llamp Reasons:-Dysfibrinogenemia WITH bleeding} Angel Gonzalez MD BLOOD BANK PRODUCT ORDERABLE S Final Result CERNER [address] [address]lene [place] [address] * Prepare platelets: 2 Units (12/30/2024 4:38 PM CDT) Product code [id number] Unit Number [id number] CERNER CH Product Blood Type APOS CERNER CH Dispense Status PRESUMED TRANSFUSED CERNER CH Product code Q6856Y63 CERNER CH Unit Number [id number] CERNER CH Product Blood Type APOS CERNER CH Dispense Status PRESUMED TRANSFUSED CERNER CH Blood Venous blood specimen / Unknown 12/30/2024 4:38 PM CDT Narrative CERNER CH - 12/30/2024 10:15 PM CDT Are special requirements needed? (all products are leukoreduced)->No Date required:-20241230 PLT # of Units:-2-Units Reasons:-Major active bleeding} Angel Gonzalez MD BLOOD BANK PRODUCT ORDERABLE S Final Result Performing Organization Address [facility]/ZIP Co de Phone Number ARON BHAT [address] Kaylene [place] [address] * (ABNORMAL) Calcium, ionized, whole blood (12/30/2024 4:37 PM CDT) Ca, ionized, bld 4.41(L) 4.50 - 5.10 mg/dL Blood 12/30/2024 4:37 PM CDT 12/30/2024 4:42 PM CDT us Angel Gonzalez MD LAB BLOOD ORDERABLES Final R esult Performing Organization Address [facility] Co de Phone Number ARON BHAT [address] [address] Department [employer] [place], [place] [id number] * eGFR (12/30/2024 4:37 PM CDT) eGFR [...] ORDERABLES Final R esult Performing Organization Address [facility] Co de Phone Number ARON BHAT [address] [address] [facility] [place], [place] [address] * aPTT (12/30/2024 4:37 PM CDT) aPTT [...] ORDERABLES Final R esult Performing Organization Address [facility] de Phone Number AORN BHAT [address] Kaylene [facility] [place] [address] * (ABNORMAL) Protime-INR (12/30/2024 4:37 PM CDT) [...] ORDERABLES Final R esult Performing Organization Address [facility] Co de Phone Number ARON BHAT [address] [facility] [place] [address] * (ABNORMAL) CBC without differential (12/30/2024 4:37 PM CDT) WBC 4.30 3.80 - 9.90 K/cumm Hgb 9.3(L) 13.0 - 17.5 g/dL [facility] Hct 27.4(L) 38.9 - 50.3 % [facility] Plt 55(L) 150 - 400 K/cumm [facility] MPV 10.3 9.1 - 12.3 fL [facility] RBC 3.07(L) 4.30 - 5.80 M/cumm [facility] MCV 89.3 81.3 - 96.4 fL [facility] MCH 30.3 27.1 - 33.3 pg [facility] MCHC 33.9 32.3 - 35.7 g/dL [facility] RDW CV 12.8 11.1 - 14.9 % [facility] RDW SD 41.3 35.7 - 48.1 fL [facility] NRBC abs 0.00 0.00 - 0.01 K/cumm [facility] CH Blood 12/30/2024 4:37 PM CDT 12/30/2024 4:43 PM CDT us Angel Gonzalez MD LAB BLOOD ORDERABLES Final R esult Performing Organization Address City/[facility] Co de Phone Number ARON [address] [place] [address] * Phosphorus (12/30/2024 4:37 PM CDT) Pathologist [facility] Phosphorus, pl 3.1 2.3 - 4.5 mg/dL Blood 12/30/2024 4:37 PM CDT 12/30/2024 5:36 PM CDT us Maureen Martinez NP LAB BLOOD ORDERABLES Fin al Result Performing Organization Address [facility] Co de Phone Number [facility] [address] Kaylene Valdez [facility] [place], [place] [id number] * Magnesium (12/30/2024 4:37 PM CDT) Pathologist [facility] Magnesium 2.1 1.4 - 2.5 mg/dL Blood 12/30/2024 4:37 PM CDT 12/30/2024 4:43 PM CDT Angel Gonzalez MD LAB BLOOD ORDERABLES Final R esult Performing Organization Address City/[facility] [place] [address] [address] Val[address] Department [place] [address] * (ABNORMAL) Blood gas, arterial (12/30/2024 4:37 [...] ORDERABLES Final R esult Performing Organization Address City/[facility] Co de Phone [place] [address] [address] Valdez [place] [address] * (ABNORMAL) Basic metabolic panel (12/30/2024 4:37 [...] ORDERABLES Final R esult Performing Organization Address City/[facility] Co de Phone Number ARON BHAT [address] [address]lene Valdez Department [employer] [place], [place] [id number] * POCT glucose (12/30/2024 4:26 PM CDT) Glucose, POC 109 70 - 199 mg/dL POC Performer [id number] [facility] Blood 12/30/2024 4:26 PM CDT 12/30/2024 4:26 PM CDT Angel Gonzalez MD LAB POCT ORDERABLES - DEVICE Final Result Performing Organization Address [facility] Co de Phone Number ARON HOME [address] [address] [place] [address] * XR Chest 1 View (12/30/2024 3:40 [...] in place. The tip of a right Zion-Maryanne catheter is in the origin of the [...] in place. The tip of a right Zion-Maryanne catheter is in the origin of the [...] inferior: normal 16- Apical septal: normal 17- Crockett: normal Valves: Aortic Valve: Annulus: normal Leaflet [...] the written comments contained within the report. [facility] ORDERABLES Final Result * Transfuse platelets (12/30/2024 3:16 PM CDT) Blood [facility] BLOOD TRANSFUSION ORDERABLE S Final Result [facility] [address] [address] Valdez [place] [address] * (ABNORMAL) POC Blood Gas [...] - DEVICE Final Result Performing Organization Address [facility]/ZIP Co de Phone Number ARON BHAT [address] [place] [address] * (ABNORMAL) Platelet count (12/30/2024 3:00 PM CDT) Plt 51(L) 150 - 400 K/cumm Blood 12/30/2024 3:00 PM CDT 12/30/2024 3:03 PM CDT Narrative [facility] - 12/30/2024 3:06 PM CDT Please call results to ext. [phone]. Thanks. Angel Gonzalez MD LAB BLOOD ORDERABLES Final R esult Performing Organization Address [facility] Co de Phone Number ARON BHAT [address] [place] [address] * Prepare platelets: 1 Units (12/30/2024 2:58 PM CDT) Product code [id number] Unit Number [id number] * [facility] Product Blood Type OPOS [facility] Dispense Status PRESUMED TRANSFUSED [facility] Blood Venous blood specimen / Unknown 12/30/2024 2:58 PM CDT Narrative [facility] - 12/30/2024 10:15 PM CDT Are special requirements needed? (all products are leukoreduced)->No Date required:-20241230 PLT # of Units:-1-Units Reasons:-Prior to cardiovascular surgery, plt < 100 K/cumm} Angel Gonzalez MD BLOOD BANK PRODUCT ORDERABLE S Final Result Performing Organization Address [facility] Co de Phone Number ARON BHAT [address] Kaylene Valdez [facility] [place] [address] * (ABNORMAL) POC Blood Gas and Chemistries, [...] ORDERABLES - DEVICE Final Result ARON BHAT [address] [address] Valdez [place] [address] * (ABNORMAL) Protime-INR (12/30/2024 2:41 PM CDT) [...] PM CDT 12/30/2024 2:44 PM CDT Narrative [facility] - 12/30/2024 2:54 PM CDT Please call results to ext. [phone]. Thanks. Angel Gonzalez MD LAB BLOOD ORDERABLES Final R esult Performing Organization Address [facility] Co de Phone Number [facility] [address] [place] [address] * (ABNORMAL) Platelet count (12/30/2024 2:41 PM CDT) Plt 52(L) 150 - 400 K/cumm Blood 12/30/2024 2:41 PM CDT 12/30/2024 2:44 PM CDT Narrative [facility] - 12/30/2024 2:47 PM CDT Please call results to ext. [phone]. Thanks. Angel Gonzalez MD LAB BLOOD ORDERABLES Final R esult Performing Organization Address [facility]/ZIP Co de Phone Number LETIBERTO [address] [place] [address] * POC Activated Clotting Time, High Range (12/30/2024 2:38 PM CDT) ACT 137 87 - 138 sec POC Performer [id number] [facility] Blood 12/30/2024 2:38 PM CDT 12/30/2024 2:38 PM CDT Angel Gonzalez MD LAB BLOOD ORDERABLES Final R esult ARON BHAT [address] [place] [address] * Transfuse plasma (12/30/2024 2:21 PM CDT) Blood Candelaria Ruano Dipti DO BLOOD TRANSFUSION ORDERABLE S Final Result Performing Organization Address City/[facility]/ZIP Co de Phone Number ARON BHAT [address] [address] [place] [address] * (ABNORMAL) POC Blood Gas and Chemistries, [...] - DEVICE Final Result Performing Organization Address [facility]/State/ZIP Co de Phone Number ARON BHAT [address] [address] [place] [place] [address] * Transfuse platelets (12/30/2024 2:18 PM CDT) Blood us Candelaria Alden Dipti DO BLOOD TRANSFUSION ORDERABLE S Final Result Performing Organization Address [facility] Co de Phone Number LETIBERTO BHAT [address] [facility] [place] [address] * POC Activated Clotting Time, High Range (12/30/2024 2:16 PM CDT) ACT 134 87 - 138 sec POC Performer [id number] ARON Blood 12/30/2024 2:16 PM CDT 12/30/2024 2:16 PM CDT Angel Gonzalez MD LAB BLOOD ORDERABLES Final R esult Performing Organization Address [facility] Co de Phone Number ARON BHAT [address] [address] Valdez [place] [address] * Transfuse plasma (12/30/2024 2:13 PM CDT) Blood us Candelaria Alden Dipti DO BLOOD TRANSFUSION ORDERABLE S Final Result Performing Organization Address City/[facility]/ZIP Co de Phone Number LETIBERTO BHAT [address] [address] Val[address] [place] [address] * Transfuse platelets (12/30/2024 2:12 PM CDT) Blood us Gaona Alden Dipti DO BLOOD TRANSFUSION ORDERABLE S Final Result Performing Organization Address City/[facility]/ZIP Co de Phone Number LETIBERTO BHAT [address] [address] Valdez [place] [address] * (ABNORMAL) POC Blood Gas and Chemistries, [...] ORDERABLES - DEVICE Final Result ARON BHAT [address] [address] Val[address] [place] [address] * (ABNORMAL) POC Activated Clotting Time, High Range (12/30/2024 1:37 PM CDT) ACT 856(H) 87 - 138 sec POC Performer [id number] [facility] Blood 12/30/2024 1:37 PM CDT 12/30/2024 1:37 PM CDT Angel Gonzalez MD LAB BLOOD ORDERABLES Final R esult Performing Organization Address [facility]/ZIP Co de Phone Number ARON BHAT [address] [address] [address] * (ABNORMAL) Platelet count (12/30/2024 1:11 PM CDT) Plt 79(L) 150 - 400 K/cumm Blood 12/30/2024 1:11 PM CDT 12/30/2024 1:17 PM CDT Narrative ARON - 12/30/2024 1:20 PM CDT Please call results to ext. [phone]. Thanks. Angel Gonzalez MD LAB BLOOD ORDERABLES Final R esult Performing Organization Address [facility] Co de Phone Number ARON BHAT [address] [address] [employer] [place] [address] * (ABNORMAL) POC Activated Clotting Time, High Range (12/30/2024 1:03 PM CDT) ACT >1,005(H) 87 - 138 sec POC Performer [id number] [facility] Blood 12/30/2024 1:03 PM CDT 12/30/2024 1:03 PM CDT Angel Gonzalez MD LAB BLOOD ORDERABLES Final R esult Performing Organization Address City/[facility] Co de Phone Number ARON BHAT [address] [address] [facility] [place] [address] * (ABNORMAL) POC Blood Gas [...] POCT ORDERABLES - DEVICE Final Result ARON [address] [place] [address] * (ABNORMAL) POC Activated Clotting Time, High Range (12/30/2024 12:06 PM CDT) ACT >1,005(H) 87 - 138 sec POC Performer [id number] [facility] Blood 12/30/2024 12:0 6 PM CDT 12/30/2024 12:06 PM CDT Angel Gonzalez MD LAB BLOOD ORDERABLES Final R esult ARON BHAT [address] [address] [place] [address] * (ABNORMAL) POC Blood Gas and Chemistries, [...] ORDERABLES - DEVICE Final Result ARON BHAT [address] [address] [place] [address] * (ABNORMAL) POC Activated Clotting Time, High Range (12/30/2024 11:05 AM CDT) ACT >1,005(H) 87 - 138 sec POC Performer [id number] [facility] Blood 12/30/2024 11:0 5 AM CDT 12/30/2024 11:05 AM CDT Angel Gonzalez MD LAB [place] [address] [address] [place] [address] * (ABNORMAL) POC Blood Gas and Chemistries, [...] POCT ORDERABLES - DEVICE Final Result ARON [address] [facility] [place] [address] * Surgical pathology (12/30/2024 10:47 AM CDT) Tissue (Lung BLEB) 12/30/2024 1:43 PM CDT Narrative PATHOLOGY - 01/06/2025 9:58 AM CDT EPIC results best viewed via link to PDF [facility] Department of Pathology [address] [place] [address] Note to Patients: This report may [...] Final Report Patient Name: DENISE JAMES Address: [address] [place] [address], [place] [address] Gender: M : 1945 (Age: 79) Service: Cardiothoracic Location: Hospital #: [id number] Patient Type: [facility] Taken: 12/30/2024 Received: 12/31/2024 Accessioned: 12/31/2024 Reported: [...] diagnosis. Clinical History: Coronary artery disease of [place] heart with stable angina pectoris, unspecified vessel [...] determined by the Surgical Pathology Department at [facility] as part of an ongoing data quality consultant program and in compliance with federally mandated [...] characteristics determined by the Surgical Pathology Department [facility]. It has not been cleared or approved by the U. S. Food and Drug Administration. Note for decalcified specimens: This assay has not been validated on decalcified tissues. Results should be interpreted with caution given the possibility of false negativity on decalcified specimens Angel Gonzalez MD LAB PATHOLOGY ORDERABLES Fin al Result PATHOLOGY [address] [place] [address] * (ABNORMAL) POC Activated Clotting Time, High Range (12/30/2024 10:38 AM CDT) ACT 820(H) 87 - 138 sec POC Performer [id number] [facility]ER [facility] Blood 12/30/2024 10:3 8 AM CDT 12/30/2024 10:38 AM CDT us Angel Gonzalez MD LAB BLOOD ORDERABLES Final R esult [facility] [address] [address] [place] [address] * (ABNORMAL) POC Blood Gas and Chemistries, [...] ORDERABLES - DEVICE Final Result ARON BHAT [address] [facility] [place] [address] * Peripheral IV Catheter (12/30/2024 9:14 AM [...] Resendez DO ANESTHESIA ORDERABLES Final Result * [place] AN ELECTIVE ENDOTRACHEAL AIRWAY (12/30/2024 9:11 AM [...] with: silk tape Number of attempts: 1 [facility] ANESTHESIA ORDERABLES Final Result * (ABNORMAL) POC [...] - DEVICE Final Result Performing Organization Address [facility] Co de Phone Number ARON BHAT [address] [address] [facility] [place] [address] * POC Activated Clotting Time, High Range (12/30/2024 8:51 AM CDT) ACT 115 87 - 138 sec POC Performer [id number] LETIBERTO Blood 12/30/2024 8:51 AM CDT 12/30/2024 8:51 AM CDT us Angel Gonzalez MD LAB BLOOD ORDERABLES Final R esult Performing Organization Address [facility] de Phone Number ARON BHAT [address] [address] [place] [address] * Check Sample (12/30/2024 7:45 AM CDT) ABO Rh B Negative CH HCLL OTHER 12/30/2024 7:45 AM CDT 12/30/2024 7:50 AM CDT us Angel Gonzalez MD LAB BLOOD ORDERABLES Final R esult Performing Organization Address [facility] de Phone Number ARON BHAT [address] [address] [facility] [place] [address] CH * PEDRO Add-On For OR (12/30/2024 [...] BLOOD ORDERABLES Final Result Performing Organization Address [facility] Co de Phone Number ARON BHAT [address] [address]lene Valdez [place] [address] * Prepare platelets: 2 Units (12/30/2024 6:47 AM CDT) Product code [id number] [facility] Unit Number [id number]- S [facility] Product Blood Type OPOS [facility] Dispense Status PRESUMED TRANSFUSED [facility] Product code F0848K07 Unit Number [id number]- S [facility] Product Blood Type OPOS [facility] Dispense Status PRESUMED TRANSFUSED [facility] Blood Venous blood specimen / Unknown 12/30/2024 6:47 AM CDT Narrative [facility] - 12/30/2024 10:15 PM CDT Specify Procedure:->CABG Are special requirements needed? (all products are leukoreduced)->No Date required:-20241230 PLT # of Units:-2-Units Reasons:-Hold for procedure (specify procedure)} Jessica Kimble [employer] SUPER[employer] BLOOD BANK PRODUCT ORDERAB LES Final Result Performing Organization Address City/[facility]/ZIP Co de Phone Number ARON BHAT [address] [address] Val[address] Department of [place], [place] [address] * Prepare plasma: 2 Units Standard plasma (12/30/2024 6:47 AM CDT) Product code [id number] CERNER CH Unit Number [id number]- I [facility] Product Blood Type BPOS [facility] Dispense Status PRESUMED TRANSFUSED [facility] Product code W0504W96 Unit Number [id number]- H [facility] Product Blood Type ABPO [...] [place] [address] Kaylene Department of Laboratories [place] [id number] * Prepare RBC: 4 Units (12/30/2024 6:47 AM CDT) Product code Z3252M08 [facility]ERNER CH Unit Number [id number]- Z [facility] Product Blood Type BNEG [facility] Dispense Status PRESUMED TRANSFUSED [facility] Product code I8796G65 CERNER CH Unit Number [id number]- M [facility] Product Blood Type BNEG [facility] Dispense Status PRESUMED TRANSFUSED [facility] Product code X2874S54 Unit Number [id number]- R [facility] Product Blood Type BNEG [facility] Dispense Status PRESUMED TRANSFUSED [facility] Product code H5915H62 [facility]ER CH Unit Number [id number]- I [facility] Product Blood Type BNEG [facility] Dispense Status RETURNED [facility] Blood 12/30/2024 6:47 AM CDT Narrative [facility] - 01/03/2025 10:15 PM CDT Specify Procedure:->CABG, encompass clamp, MARC wedge Are special requirements needed? (All products are leukoreduced and CMV- safe)- >No Date required:-20241230 [facility] # of [id number] Reasons:-Hold for procedure (specify procedure)} us Jessica Kimble NP BLOOD BANK PRODUCT ORDERAB LES Final Result ARON [address] [address] [place] [address] * Pulmonary Function Test -[facility]; Complete/Full (12/24/2024 10:23 AM CDT) Anatomical [...] oxygen saturation at rest Janice Callahan MD [facility] Angel Gonzalez MD PFT ORDERABLES Final [...] esult [facility] [address] [address] Valdez [place] [address] * (ABNORMAL) Basic metabolic panel [...] 2022. Calcium 10.1 8.5 - 10.3 mg/dL [facility] Blood 12/18/2024 12:0 6 PM CDT 12/18/2024 12:06 PM CDT Angel Gonzalez MD LAB BLOOD ORDERABLES Final R esult Performing Organization Address [facility] de Phone Number ARON [address] [address]lene Department [place] [place] [address] * (ABNORMAL) aPTT (12/18/2024 12:05 [...] ORDERABLES Final R esult Performing Organization Address [facility] Co de Phone Number ARON [address] Kaylene Department [place] [place], [place] [id number] * (ABNORMAL) Protime-INR (12/18/2024 12:05 PM CDT) PT 15.0(H) 9.7 - 13.0 sec INR 1.38(H) 0.90 - 1.20 [facility] [...] ORDERABLES Final R esult Performing Organization Address City/[facility] de Phone Number [facility] [address] [address] [place] [address] * (ABNORMAL) CBC without differential (12/18/2024 12:05 PM CDT) WBC 6.03 3.80 - 9.90 K/cumm Hgb 16.6 13.0 - 17.5 g/dL [facility] Hct 49.4 38.9 - 50.3 % [facility] Plt 115(L) 150 - 400 K/cumm [facility] Comment:No clot detected in sample. MPV 11.2 9.1 - 12.3 fL [facility] RBC 5.50 4.30 - 5.80 M/cumm [facility] MCV 89.8 81.3 - 96.4 fL [facility] MCH 30.2 27.1 - 33.3 pg [facility] MCHC 33.6 32.3 - 35.7 g/dL [facility] RDW CV 13.0 11.1 - 14.9 % [facility] RDW SD 42.6 35.7 - 48.1 fL [facility] NRBC abs 0.00 0.00 - 0.01 K/cumm [facility] Blood 12/18/2024 12:0 5 PM CDT 12/18/2024 12:05 PM CDT Angel Gonzalez MD LAB BLOOD ORDERABLES Final R esult ARON BHAT [address] [address] Val[address] [place] [address] * (ABNORMAL) Urinalysis reflex to microscopic and [...] tendency for uric acid stone formation. Source: [facility] [place] Current Interpretive Data was last revised on [...] GENERAL O RDERABLES Final Result ARON BHAT [address] [address] Valdez [place] [address] * Type and screen (12/18/2024 11:54 AM CDT) ABO Rh B Negative [place], indirect Negative [facility] Blood 12/18/2024 11:5 4 AM CDT 12/18/2024 12:10 PM CDT Narrative [facility] - 12/18/2024 12:59 PM CDT Has the patient had Daratumumab or Isatuximab in the past 6 months?->Unknown Angel Gonzalez MD LAB BLOOD BANK TEST ORDERABL ES Final Result Performing Organization Address [facility] Co de Phone Number ARON [address] [address] [place] [address] * ECG 12 lead (12/18/2024 11:49 AM CDT) 12/18/2024 11:4 9 AM CDT Narrative [facility] - 12/18/2024 7:42 PM CDT Vent Rate: 51 bpm RR Interval: 1170 msec WV Interval: 228 msec QRS Duration: 94 msec QT Interval: 439 msec QTC Interval: 415 msec P-R-T United: 60 - 13 - 74 degrees IMPRESSION: SINUS BRADYCARDIA WITH FIRST DEGREE AV BLOCK ABNORMAL ECG Electronically Signed By: Dr. Emiliano Cuello [facility] Angel Gonzalez MD ECG ORDERABLES Final Result Performing Organization Address [facility] de Phone Number [facility] * XR Chest PA Lateral 2 View [...] AM CDT Narrative 11/07/2024 12:[address] [facility] Medical Group Cardiology [address] [facility] [address] [id number] [address] [place] [address] [address], [place] [address] P:[phone] P:[phone] Echocardiographic Report Patient Name: DENISE JAMES : 1945 Study Date: 11/07/2024 9:15:36 AM Gender: M Tech: [facility] Location: [place] Ref Provider: GUSTAVO IVERSON Height(Cm): 185 BSA: [...] Site: Exam was interpreted at [facility]. Left Ventricle: Normal left ventricular size. [...] Procedure Note Gustavo Iverson MD - 11/07/2024 [facility] Medical Group Cardiology [address] [facility] [address], [place] [address] [address] [facility] [address], [place] [address] P:[phone] P:[phone] Echocardiographic Report Patient Name: DENISE JAMES : 1945 Study Date: 11/07/2024 9:15:36 AM Gender: M Tech: [facility] Location: [place] Ref Provider: GUSTAVO IVERSON Height(Cm): 185 BSA: [...] Site: Exam was interpreted at [facility]. Left Ventricle: Normal left ventricular size. [...] Advance Directives For more information, please contact: [phone] Documents on File Type Date Recorded Patient Catering Staff Member Ibeth akers ADVANCE DIRECTIVE 01/10/2025 7:27 AM BASIL SAUL ADVANCE DIRECTIVE 01/10/2025 7:27 AM POWER OF LAPPER-MEDICAL ADVANCE DIRECTIVE 01/08/2025 2:58 PM Power of Lens Polisher-Medical * Full Code (Latest Code Status on File) Date Activated Date Inactivated Comments 12/30/2024 4:33 PM 01/08/2025 8:14 PM Healthcare Agents on File Name Relationship Healthcare Agent Relationsca p Communication Catina James Spouse Health Care Agent Care Teams Cupola Tender Helper Relationship Specialty Start Date End Date Rj Shepherd MD [address] [address] PCP - General Internal Medicine 07/23/24 Angel Gonzalez MD [address] [address] Surgeon Cardiothoracic Surgery 01/08/25 Padmaja Louis NP [address] [facility] [address] [place] [address] Nurse Practitioner Cardiovascular Disease 01/08/25
--- OUTSIDE RECORDS SUMMARY | 2025-01-18 16:16 | XMS_ITS | Clinical Summary ---
Author Organization [facility] [address] [facility] [address] [place] [address] Care Team Providers Care Derrick Operator Name Role Phone Rj Shepherd MD Primary Care Provider + Angel Gonzalez MD Unavailable [phone] Padmaja Louis NP Unavailable Allergies No known [...] Arthritis 12/10/2024 Coronary artery disease invo lving [place] coronary artery of [place] heart without angina pectoris 12/04/2024 Mixed hyperlipidemia 12/04/2024 Heart failure with reduced ejection fraction Paroxysmal atrial fibrillation 08/09/2024 Primary hypertension 08/09/2024 Chronic anticoagulation 08/09/2024 Panlobular emphysema 08/05/2024 Encounters Date Type Department Care Team Description 01/16/[address] [facility] Cardiology [address] [place] [address] Gustavo Iverson MD 12/30/2024 8:05 AM CDT Anesthesia Event [facility] Operating Room [address] [place] [address] Candelaria Resendez DO Eldin, Ali S., MD 12/30/2024 8:00 AM CDT - 12/30/2024 2:00 PM CDT Surgery [facility] Operating Room [address] [place] [address] Angel Gonzalez MD CABG X3, Encompass Clamp, DAI, LEFT UPPER LOBE WEDGE RESECTION OF BLEB/360min 12/30/2024 7:15 AM CDT Ancillary Procedure [facility] Operating Room [address] [place] [address] 12/30/2024 6:05 AM CDT - 01/08/2025 4:09 PM CDT Hospital Encounter [address] [address] Angel Gonzalez MD Coronary artery disease (CAD) excluded (Primary Dx); Coronary artery disease of [place] heart with stable angina pectoris, unspecified vessel or lesion type Discharge Disposition: Discharge to home, home health skilled care 12/24/2024 9:41 AM CDT - 12/24/2024 11:59 PM CDT Hospital Encounter [facility] Respiratory [address] [place] [address] Coronary artery disease involving [place] coronary artery of [place] heart without angina pectoris Discharge Disposition: Discharge to home or self care 12/18/2024 11:25 AM CDT - 12/18/2024 11:59 PM CDT Hospital Encounter [facility] Diagnostic Imaging [address] [place] [address] Discharge Disposition: Discharge to home or self care 12/18/2024 10:45 AM CDT Pre-Admission Testing [facility] Pre Anesthesia Testing [address] [place] [address] Coronary artery disease of [place] heart with stable angina pectoris, unspecified vessel or lesion type; Shortness of breath 12/18/2024 9:40 AM CDT - 12/18/2024 11:59 PM CDT Hospital Encounter [facility] Vascular Lab [address] [place] [address] Coronary artery disease involving [place] coronary artery of [place] heart without angina pectoris; Other chest pain Discharge Disposition: Discharge to home or self care 12/18/2024 9:11 AM CDT - 12/18/2024 11:59 PM CDT Hospital Encounter [facility] Imaging and Radiology [address] [place] [address] Coronary artery disease involving [place] coronary artery of [place] heart without angina pectoris Discharge Disposition: Discharge to home or self care 12/10/2024 2:00 PM CDT Office Visit [facility] Surgery [address] [place] [address] [address] [place] [phone] Angel Gonzalez MD Coronary artery disease involving [place] coronary artery of [place] heart without angina pectoris (Primary Dx); Heart failure with reduced ejection fraction (HCC); Coronary artery disease involving [place] coronary artery of [place] heart, unspecified whether angina present 12/10/2024 Orders Only [facility] Surgery [address] [place] [address] [address] [place] [phone] Angel Gonzalez MD Coronary artery disease involving [place] coronary artery of [place] heart without angina pectoris (Primary Dx); Other chest pain 12/10/2024 Orders Only [facility] Surgery [address] [place] [address] [address] [place] [phone] Angel Gonzalez MD Coronary artery disease involving [place] coronary artery of [place] heart without angina pectoris (Primary Dx) 12/04/2024 11:15 AM CDT Office [address] [facility] Cardiology at [address] [place] [phone] Gustavo Iverson MD Coronary artery disease involving [place] coronary artery of [place] heart without angina pectoris (Primary Dx); Heart failure with reduced ejection fraction (HCC); Primary hypertension; Paroxysmal atrial fibrillation (HCC); Mixed hyperlipidemia 11/26/2024 Orders Only [facility] Cardiology [address] [place] [address] [address] [place] [address] Gustavo Iverson MD 11/19/[address] [facility] Health Information Management [address] [place] [address] Gustavo Iverson MD 11/07/2024 9:15 AM CDT Ancillary Procedure [facility] Cardiology [address] [place] [address] [place] [phone] Heart failure with reduced ejection fraction (HCC) 11/07/2024 Telephone [facility] Cardiology [address] [place] [address] [place] [phone] Gustavo Iverson MD 11/07/2024 Results Follow-Up [facility] Cardiology [address] [place] [address] [place] [phone] Gustavo Iverson MD Transthoracic Echo (TTE) Complete [...] on file 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 Gender Identity Not on file Sexual Orientation [...] history exists Medical Devices Implanted Type Area Claims Technician Device Identifier Shelf Expiration Date Model / Serial / Lot Atricure Clip Closure Exclusion System Preloaded Standard Left Atrial Appendage Atriclip 40mm [id number] - [id number] - [id number] Implanted:Qty: 1 on 12/30/2024 by Angel Gonzaelz MD at [facility] Clip Left: Atrial Appendage Atricure 10/26/2026 [id number] / [id number] / [id number] Procedures Procedure Name Priority Date/Time Associated Diagnosis [...] 4:59 PM CDT Coronary artery disease of [place] heart with stable angina pectoris, unspecified vessel [...] 10:47 AM CDT Coronary artery disease of [place] heart with stable angina pectoris, unspecified vessel [...] 8:04 AM CDT Coronary artery disease of [place] heart with stable angina pectoris, unspecified vessel [...] 10:23 AM CDT Coronary artery disease involving [place] coronary artery of [place] heart without angina pectoris US VEIN MAPPING DUPLEX LOWER EXTREMITY BILATERAL Schedule Routine, Read Routine (OP Routine) 12/18/2024 1:30 PM CDT Coronary artery disease involving [place] coronary artery of [place] heart without angina pectoris Other chest pain EGFR Routine 12/18/2024 12:06 PM CDT Coronary artery disease of [place] heart with stable angina pectoris, unspecified vessel or lesion type BASIC METABOLIC PANEL Routine 12/18/2024 12:06 PM CDT Coronary artery disease of [place] heart with stable angina pectoris, unspecified vessel or lesion type PROTIME-INR Routine 12/18/2024 12:05 PM CDT Coronary artery disease of [place] heart with stable angina pectoris, unspecified vessel or lesion type APTT Routine 12/18/2024 12:05 PM CDT Coronary artery disease of [place] heart with stable angina pectoris, unspecified vessel or lesion type Shortness of breath CBC WITHOUT DIFFERENTIAL Routine 12/18/2024 12:05 PM CDT Coronary artery disease of [place] heart with stable angina pectoris, unspecified vessel or lesion type TYPE AND SCREEN Routine 12/18/2024 11:54 AM CDT Coronary artery disease of [place] heart with stable angina pectoris, unspecified vessel or lesion type URINALYSIS AND REFLEX TO MICROSCOPIC AND CULTURE Routine 12/18/2024 11:54 AM CDT Coronary artery disease of [place] heart with stable angina pectoris, unspecified vessel or lesion type ECG 12-LEAD Routine 12/18/2024 11:49 AM CDT Coronary artery disease of [place] heart with stable angina pectoris, unspecified vessel or lesion type XR CHEST PA LATERAL 2 VIEWS Schedule Routine, Read Routine (OP Routine) 12/18/2024 11:35 AM CDT Coronary artery disease of [place] heart with stable angina pectoris, unspecified vessel or lesion type CT CHEST WO CONTRAST Schedule Routine, Read Routine (OP Routine) 12/18/2024 9:31 AM CDT Coronary artery disease involving [place] coronary artery of [place] heart without angina pectoris CARDIOLOGY DOCUMENT SCAN [...] 130 70 - 199 mg/dL POC Performer [id number] ARON BHAT Blood 01/08/2025 12:0 3 PM CDT 01/08/2025 12:03 PM CDT us Angel Gonzalez MD LAB POCT ORDERABLES - DEVICE Final Result ARON BHAT [address] [address] Department [place] [address] * XR Chest PA Lateral 2 Views [...] active infiltrate. The tip of a retracted Houston-Maryanne catheter is in the superior vena cava. [...] active infiltrate. The tip of a retracted [place]-Maryanne catheter is in the superior vena cava. IMPRESSION: No failure. Electronically signed by: Sangeeta Harmon M.D. us Jessica Kimble CALL SPECIALIST IMG XR PROCEDURES Final Re sult * POCT glucose (01/08/2025 7:49 AM CDT) Glucose, POC 132 70 - 199 mg/dL POC Performer [id number] ARON BHAT Blood 01/08/2025 7:49 AM CDT 01/08/2025 7:49 AM CDT Angel Gonzalez MD LAB POCT ORDERABLES - DEVICE Final Result Performing Organization Address [facility] de Phone Number ARON BHAT [address] Department [place] [address] * eGFR (01/08/2025 5:36 AM CDT) eGFR [...] 01/08/2025 5:53 AM CDT us Maureen Martinez CALL SPECIALIST LAB BLOOD ORDERABLES Fin al Result Performing Organization Address [facility] de Phone Number ARON BHAT [address] Department [place] [address] * POCT glucose (01/08/2025 5:36 AM CDT) Glucose, POC 163 70 - 199 mg/dL POC Performer [id number] ARON Blood 01/08/2025 5:36 AM CDT 01/08/2025 5:36 AM CDT us Angel Gonzalez MD LAB POCT ORDERABLES - DEVICE Final Result ARON BHAT [address] [address] Department [place] [address] * (ABNORMAL) CBC without differential (01/08/2025 5:36 AM CDT) WBC 4.62 3.80 - 9.90 K/cumm Hgb 9.3(L) 13.0 - 17.5 g/dL C[facility]ER CH Hct 28.7(L) 38.9 - 50.3 % [facility] Plt 125(L) 150 - 400 K/cumm [facility] CH MPV 10.9 9.1 - 12.3 fL [facility] RBC 3.15(L) 4.30 - 5.80 M/cumm [facility] MCV 91.1 81.3 - 96.4 fL [facility] MCH 29.5 27.1 - 33.3 pg [facility] MCHC 32.4 32.3 - 35.7 g/dL CERNER CH RDW CV 14.1 11.1 - 14.9 % [facility] RDW SD 46.5 35.7 - 48.1 fL [facility] NRBC abs 0.00 0.00 - 0.01 K/cumm [facility] Blood 01/08/2025 5:36 AM CDT 01/08/2025 5:54 AM CDT us Maureen Martinez CALL SPECIALIST LAB BLOOD ORDERABLES [facility] al Result ARON BHAT [address] [address] Department [place] [address] * (ABNORMAL) Renal function panel (01/08/2025 5:36 [...] affected. Glucose 153 70 - 199 mg/dL [facility] Comment: Interpretive Data Fasting glucose >/= 126 [...] 2022. Calcium 8.6 8.5 - 10.3 mg/dL [facility] Phosphorus, pl 2.8 2.3 - 4.5 mg/dL [facility] Albumin 3.2(L) 3.5 - 5.0 g/dL [facility] Blood 01/08/2025 5:36 AM CDT 01/08/2025 5:53 AM CDT us Maureen Martinez NP LAB BLOOD ORDERABLES Fin al Result Performing Organization Address City/[facility]/ZIP Co de Phone Number ARON [address] [address] Department [email or web address] [address] * POCT glucose (01/07/2025 11:58 PM CDT) Glucose, POC 139 70 - 199 mg/dL POC Performer [id number] [facility] Blood 01/07/2025 11:5 8 PM CDT 01/07/2025 11:58 PM CDT Angel Gonzalez MD LAB POCT ORDERABLES - DEVICE Final Result [facility] [address] [address] Department [email or web address] [address] * POCT glucose (01/07/2025 8:43 PM CDT) Glucose, POC 167 70 - 199 mg/dL POC Performer [id number] [facility] CH Blood 01/07/2025 8:43 PM CDT 01/07/2025 8:43 PM CDT Angel Gonzalez MD LAB POCT ORDERABLES - DEVICE Final Result Performing Organization Address [facility] Co de Phone Number ARON BHAT [address] [address] [facility] [place] [address] * POCT glucose (01/07/2025 5:14 PM CDT) Glucose, POC 168 70 - 199 mg/dL POC Performer [id number] [facility] CH Blood 01/07/2025 5:14 PM CDT 01/07/2025 5:14 PM CDT Angel Gonzalez MD LAB POCT ORDERABLES - DEVICE Final Result Performing Organization Address [facility] de Phone Number ARON BHAT [address] [address] [facility] [place] [address] * POCT glucose (01/07/2025 12:27 PM CDT) Glucose, POC 127 70 - 199 mg/dL POC Performer [id number] [facility] Blood 01/07/2025 12:2 7 PM CDT 01/07/2025 12:27 PM CDT Angel Gonzalez MD LAB POCT ORDERABLES - DEVICE Final Result Performing Organization Address [facility] de Phone Number ARON [address] [place] [address] * POCT glucose (01/07/2025 7:38 AM CDT) Glucose, POC 150 70 - 199 mg/dL POC Performer [id number] [facility] Blood 01/07/2025 7:38 AM CDT 01/07/2025 7:38 AM CDT us Angel Gonzalez MD LAB POCT ORDERABLES - DEVICE Final Result ARON BHAT [address] Department [place] [address] * XR Chest 1 View - Portable [...] consolidation. The distal tip of the retracted [place]-Maryanne catheter is in the distal superior vena [...] consolidation. The distal tip of the retracted [place]-Maryanne catheter is in the distal superior vena cava. IMPRESSION: Findings as described above. Electronically signed by: Sangeeta Harmon M.D. us Maureen Martinez CALL SPECIALIST IMG XR PROCEDURES Final Result * (ABNORMAL) [...] CDT 01/07/2025 2:28 AM CDT Maureen Martinez CALL SPECIALIST LAB BLOOD ORDERABLES Fin al Result Performing Organization Address [facility]/ZIP Co de Phone Number ARON HOME [address] [address] Department [email or web address] [address] * aPTT (01/07/2025 2:28 AM CDT) aPTT 29 28 - 38 sec Comment: Interpretive Data Heparin therapeutic range: 66.0 - 100.0 seconds. Range based on correlation with therapeutic heparin activity range of 0.3 - 0.7 Units/mL. Current interpretive data was last revised on 2023. Blood 01/07/2025 2:28 AM CDT 01/07/2025 2:28 AM CDT Jessica Kimble CALL SPECIALIST LAB BLOOD ORDERABLES Final Result Performing Organization Address City/[facility]/[place] Number [place] [address] [address] Department of [employer] [place], [place] [id number] * Protime-INR (01/07/2025 2:28 AM CDT) PT [...] CDT 01/07/2025 2:28 AM CDT Jessica Kimble CALL SPECIALIST LAB BLOOD ORDERABLES Final Result Performing Organization Address [facility] de Phone Number ARON [address] [address] [facility] [place] [address] * Phosphorus (01/07/2025 2:28 AM CDT) Pathologist [facility] Phosphorus, pl 2.9 2.3 - 4.5 mg/dL Blood 01/07/2025 2:28 AM CDT 01/07/2025 2:28 AM CDT Maureen Martinez CALL SPECIALIST LAB BLOOD ORDERABLES Fin al Result Performing Organization Address [facility] de Phone Number LETIBERTO [address] [place] [address] * (ABNORMAL) Bilirubin, direct (01/07/2025 2:28 AM CDT) Bilirubin, direct 0.8(H) 0.1 - 0.3 mg/dL Comment:Hemolysis present. R esults may be affected. Blood 01/07/2025 2:28 AM CDT 01/07/2025 2:28 AM CDT Maureen Martinez CALL SPECIALIST LAB BLOOD ORDERABLES Fin al Result Performing Organization Address [facility] Co de Phone Number ARON [address] Department [place] [address] * (ABNORMAL) Comprehensive metabolic panel (01/07/2025 2:28 [...] LAB BLOOD ORDERABLES Fin al Result ARON [address] Department [place] [address] * (ABNORMAL) CBC without differential (01/07/2025 2:27 AM CDT) WBC 5.90 3.80 - 9.90 K/cumm Hgb 10.2(L) 13.0 - 17.5 g/dL [facility] Hct 30.2(L) 38.9 - 50.3 % [facility] Plt 117(L) 150 - 400 K/cumm [facility] MPV 10.5 9.1 - 12.3 fL [facility] RBC 3.44(L) 4.30 - 5.80 M/cumm [facility] MCV 87.8 81.3 - 96.4 fL [facility] MCH 29.7 27.1 - 33.3 pg [facility] MCHC 33.8 32.3 - 35.7 g/dL [facility] CH RDW CV 14.1 11.1 - 14.9 % [facility] RDW SD 45.0 35.7 - 48.1 fL [facility] NRBC abs 0.00 0.00 - 0.01 K/cumm [facility] Blood 01/07/2025 2:27 AM CDT 01/07/2025 2:27 AM CDT us Maureen Martinez NP LAB BLOOD ORDERABLES Fin al Result Performing Organization Address [facility] Co de Phone Number ARON HOME [address] [address] [facility] [place] [address] * POCT glucose (01/06/2025 9:23 PM CDT) Pathologist [facility] Glucose, POC 167 70 - 199 mg/dL POC Performer [id number] [facility] Blood 01/06/2025 9:23 PM CDT 01/06/2025 9:23 PM CDT Angel Gonzalez MD LAB POCT ORDERABLES - DEVICE Final Result Performing Organization Address City/[facility] Co de Phone Number ARON BHAT [address] Department [place] [address] * POCT glucose (01/06/2025 5:43 PM CDT) Glucose, POC 192 70 - 199 mg/dL POC Performer [id number] [facility] Blood 01/06/2025 5:43 PM CDT 01/06/2025 5:43 PM CDT Angel Gonzalez MD LAB POCT ORDERABLES - DEVICE Final Result Performing Organization Address [facility] Co de Phone Number ARON BHAT [address] [address] Department [place] [address] * POCT glucose (01/06/2025 12:16 PM CDT) Glucose, POC 139 70 - 199 mg/dL POC Performer [id number] C[facility]ER Blood 01/06/2025 12:1 6 PM CDT 01/06/2025 12:16 PM CDT Angel Gonzalez MD LAB POCT ORDERABLES - DEVICE Final Result Performing Organization Address [facility] Co de Phone Number ARON BHAT [address] [address] [facility] [place] [address] * POCT glucose (01/06/2025 7:45 AM CDT) Glucose, POC 151 70 - 199 mg/dL POC Performer [id number] [facility] Blood 01/06/2025 7:45 AM CDT 01/06/2025 7:45 AM CDT Angel Gonzalez MD LAB POCT ORDERABLES - DEVICE Final Result Performing Organization Address [facility] Co de Phone Number ARON BHAT [address] [address] Department [place] [address] * (ABNORMAL) eGFR (01/06/2025 6:16 AM CDT) [...] NP LAB BLOOD ORDERABLES Fin al Result [facility] [address] [address] Department [place] [address] * (ABNORMAL) CBC without differential (01/06/2025 6:16 AM CDT) Pathologist [facility] WBC 7.22 3.80 - 9.90 K/cumm Hgb 10.6(L) 13.0 - 17.5 g/dL [facility] Hct 31.7(L) 38.9 - 50.3 % [facility] Plt 106(L) 150 - 400 K/cumm [facility] MPV 10.9 9.1 - 12.3 fL [facility] RBC 3.58(L) 4.30 - 5.80 M/cumm [facility] MCV 88.5 81.3 - 96.4 fL [facility] MCH 29.6 27.1 - 33.3 pg [facility] MCHC 33.4 32.3 - 35.7 g/dL [facility] CH RDW CV 14.2 11.1 - 14.9 % [facility] CH RDW SD 45.8 35.7 - 48.1 fL [facility] CH NRBC abs 0.02(H) 0.00 - 0.01 K/cumm [facility] Blood 01/06/2025 6:16 AM CDT 01/06/2025 6:16 AM CDT us Maureen Martinez CALL SPECIALIST LAB BLOOD ORDERABLES [facility] al Result [facility] [address] Department [place] [address] * (ABNORMAL) Renal function panel (01/06/2025 6:16 AM CDT) Sodium 134(L) 135 - 145 mmol/L Potassium, pl 3.4 3.3 - 4.9 mmol/L C[facility] Chloride 94(L) 97 - 110 mmol/L [facility] CO2 30 22 - 32 mmol/L C[facility] Anion gap 10 2 - 15 mmol/L [facility] BUN 47(H) 6 - 25 mg/dL [facility] Creatinine 1.36(H) 0.80 - 1.30 mg/dL C[facility] Comment:Icteric sample, test results may be affected. Glucose 149 70 - 199 mg/dL [facility] Comment: Interpretive Data Fasting glucose >/= 126 [...] C[facility]ER Albumin 3.5 3.5 - 5.0 g/dL [facility] Blood 01/06/2025 6:16 AM CDT 01/06/2025 6:16 AM CDT Maureen Martinez CALL SPECIALIST LAB BLOOD ORDERABLES Fin al Result ARON [address] Department [place] [address] * XR Chest 1 View - Portable [...] signed by: Josh Renteria M.D. Maureen Martinez CALL SPECIALIST IMG XR PROCEDURES Final Result * POCT glucose (01/05/2025 9:44 PM CDT) Glucose, POC 169 70 - 199 mg/dL POC Performer [id number] [facility] Blood 01/05/2025 9:44 PM CDT 01/05/2025 9:44 PM CDT Angel Gonzalez MD LAB POCT ORDERABLES - DEVICE Final Result Performing Organization Address [facility] Co de Phone Number ARON BHAT [address] [address] [facility] [employer] [place], [place] [address] * POCT glucose (01/05/2025 4:58 PM CDT) Glucose, POC 148 70 - 199 mg/dL POC Performer [id number] [facility] CH Blood 01/05/2025 4:58 PM CDT 01/05/2025 4:58 PM CDT Angel Gonzalez MD LAB POCT ORDERABLES - DEVICE Final Result Performing Organization Address [facility] de Phone Number ARON BHAT [address] [address] [facility] [place] [address] * POCT glucose (01/05/2025 12:25 PM CDT) Glucose, POC 109 70 - 199 mg/dL POC Performer [id number] [facility] Blood 01/05/2025 12:2 5 PM CDT 01/05/2025 12:25 PM CDT Angel Gonzalez MD LAB POCT ORDERABLES - DEVICE Final Result Performing Organization Address [facility] de Phone Number ARON BHAT [address] [address] [facility] [place] [address] * ECG 12 lead (01/05/2025 12:21 PM CDT) 01/05/2025 12:[address] [facility] - 01/05/2025 1:36 PM CDT Vent Rate: 82 bpm RR Interval: 731 msec CO Interval: 218 msec QRS Duration: 97 msec QT Interval: 423 msec QTC Interval: 461 msec P-R-T Dickens: 51 - -15 - 88 degrees IMPRESSION: SINUS RHYTHM WITH FIRST DEGREE AV BLOCK POSSIBLE INFERIOR MYOCARDIAL INFARCTION , PROBABLY OLD ST-depression in V2, V3, consider ischemia ABNORMAL ECG Electronically Signed By: Dr. Emiliano Cuello [facility] us Brianna Arreola CALL SPECIALIST ECG ORDERABLES Final Res ult Performing Organization Address City/[facility] Co de Phone Number [facility] * POCT glucose (01/05/2025 7:55 AM CDT) Glucose, POC 90 70 - 199 mg/dL POC Performer [id number] ARON Blood 01/05/2025 7:55 AM CDT 01/05/2025 7:55 AM CDT us Angel Gonzalez MD LAB POCT ORDERABLES - DEVICE Final Result Performing Organization Address City/[facility] Co de Phone Number ARON [address] [address] Department [place] [address] * XR Chest 1 View - Portable [...] by: Talisha Duggan M.D. us Maureen Martinez CALL SPECIALIST IMG XR PROCEDURES Final Result * POCT glucose (01/05/2025 5:37 AM CDT) Glucose, POC 106 70 - 199 mg/dL POC Performer [id number] ARON BHAT Blood 01/05/2025 5:37 AM CDT 01/05/2025 5:37 AM CDT us Angel Gnozalez MD LAB POCT ORDERABLES - DEVICE Final Result ARON [address] Kaylene Department [place] [address] * (ABNORMAL) eGFR (01/05/2025 5:32 [...] CDT 01/05/2025 6:34 AM CDT Maureen Martinez CALL SPECIALIST LAB BLOOD ORDERABLES Fin al Result Performing Organization Address City/[facility]/ZIP Co de Phone Number ARON [address] Kaylene Valdez [employer] [address] * (ABNORMAL) CBC without differential (01/05/2025 5:32 AM CDT) WBC 5.52 3.80 - 9.90 K/cumm Hgb 9.7(L) 13.0 - 17.5 g/dL [facility] Hct 29.9(L) 38.9 - 50.3 % [facility] Plt 90(L) 150 - 400 K/cumm [facility] MPV 11.4 9.1 - 12.3 fL [facility] RBC 3.33(L) 4.30 - 5.80 M/cumm [facility] MCV 89.8 81.3 - 96.4 fL [facility] MCH 29.1 27.1 - 33.3 pg [facility] MCHC 32.4 32.3 - 35.7 g/dL [facility] CH RDW CV 14.1 11.1 - 14.9 % [facility] CH RDW SD 45.7 35.7 - 48.1 fL [facility] NRBC abs 0.00 0.00 - 0.01 K/cumm [facility] CH Blood 01/05/2025 5:32 AM CDT 01/05/2025 5:46 AM CDT Maureen Martinez CALL SPECIALIST LAB BLOOD ORDERABLES Fin al Result Performing Organization Address City/[facility]/ZIP Co de Phone Number LETIBERTO BHAT [address] Kaylene Valdez Department [email or web address] [address] * Phosphorus (01/05/2025 5:32 AM CDT) Phosphorus, pl 3.5 2.3 - 4.5 mg/dL Blood 01/05/2025 5:32 AM CDT 01/05/2025 5:47 AM CDT Maureen Martinez CALL SPECIALIST LAB BLOOD ORDERABLES Fin al Result Performing Organization Address City/[facility] Co de Phone Number ARON HOME [address] Kaylene Valdez Department [place] [address] * Magnesium (01/05/2025 5:32 AM CDT) Pathologist [facility] Magnesium 2.0 1.4 - 2.5 mg/dL Blood 01/05/2025 5:32 AM CDT 01/05/2025 5:46 AM CDT Maureen Martinez CALL SPECIALIST LAB BLOOD ORDERABLES Fin al Result Performing Organization Address [facility] de Phone Number ARON [address] Kaylene Valdez Department [place] [address] * (ABNORMAL) Bilirubin, direct (01/05/2025 5:32 AM CDT) Pathologist [facility] Department Bilirubin, direct 1.1(H) 0.1 - 0.3 mg/dL Blood 01/05/2025 5:32 AM CDT 01/05/2025 5:47 AM CDT Maureen Martinez CALL SPECIALIST LAB BLOOD ORDERABLES Fin al Result Performing Organization Address City/[facility] Co de Phone Number ARON [address]2937 Kaylene Valdez [facility] [place] [address] * (ABNORMAL) Comprehensive metabolic panel (01/05/2025 5:32 [...] BLOOD ORDERABLES Fin al Result ARON BHAT [address] Kaylene Valdez Department [place] [address] * POCT glucose (01/05/2025 2:13 AM CDT) [facility] Signature Glucose, POC 104 70 - 199 mg/dL POC Performer [id number] [facility] CH Blood 01/05/2025 2:13 AM CDT 01/05/2025 2:13 AM CDT Angel Gonzalez MD LAB POCT ORDERABLES - DEVICE Final Result Performing Organization Address [facility] Co de Phone Number ARON BHAT [address] Maurice [facility] [employer] [place], [place] [id number] * POCT glucose (01/04/2025 8:19 PM CDT) Glucose, POC 153 70 - 199 mg/dL POC Performer [id number] [facility] CH Blood 01/04/2025 8:19 PM CDT 01/04/2025 8:19 PM CDT Angel Gonzalez MD LAB POCT ORDERABLES - DEVICE Final Result Performing Organization Address [facility] de Phone Number ARON BHAT [address] Kaylene [facility] [place] [address] * POCT glucose (01/04/2025 5:13 PM CDT) Glucose, POC 96 70 - 199 mg/dL POC Performer [id number] [facility] CH Blood 01/04/2025 5:13 PM CDT 01/04/2025 5:13 PM CDT Angel Gonzalez MD LAB POCT ORDERABLES - DEVICE Final Result Performing Organization Address [facility] de Phone Number ARON BHAT [address] Maurice [facility] [place] [address] * POCT glucose (01/04/2025 11:29 AM CDT) Glucose, POC 110 70 - 199 mg/dL POC Performer [id number] [facility] CH Blood 01/04/2025 11:2 9 AM CDT 01/04/2025 11:29 AM CDT Angel Gonzalez MD LAB POCT ORDERABLES - DEVICE Final Result Performing Organization Address City/[facility]/ZIP Co de Phone Number ARON BHAT [address] Kaylene Department [place] [address] * POCT glucose (01/04/2025 7:35 AM CDT) [facility] Signature Glucose, POC 118 70 - 199 mg/dL POC Performer [id number] [facility] Blood 01/04/2025 7:35 AM CDT 01/04/2025 7:35 AM CDT Angel Gonzalez MD LAB POCT ORDERABLES - DEVICE Final Result Performing Organization Address [facility] Co de Phone Number ARON BHAT [address] Maurice Department [place] [address] * Critical Care (01/04/2025 7:24 AM CDT) [...] plan with the patient's team and other medical/system sales consultant staff. This time was in addition [...] in the medical record us Venus Iqbal CALL SPECIALIST IN CLINIC/BEDSIDE ORDERABLES Final Result * XR [...] consolidation. The distal tip of the retracted Houston-Maryanne catheter is at the cavoatrial junction. Interval [...] consolidation. The distal tip of the retracted Houston-Maryanne catheter is at the cavoatrial junction. Interval [...] ORDERABLES Fin al Result Performing Organization Address City/State/[facility] Co de Phone Number ARON BHAT [address] [address] Department [place] [address] * eGFR (01/04/2025 4:34 AM CDT) eGFR [...] CDT 01/04/2025 4:38 AM CDT Maureen Martinez CALL SPECIALIST LAB BLOOD ORDERABLES Fin al Result Performing Organization Address [facility] Co de Phone Number ARON BHAT [address] Department [place] [address] * (ABNORMAL) CBC without differential (01/04/2025 4:34 AM CDT) WBC 5.32 3.80 - 9.90 K/cumm Hgb 10.0(L) 13.0 - 17.5 g/dL [facility] Hct 30.1(L) 38.9 - 50.3 % [facility] Plt 80(L) 150 - 400 K/cumm [facility] MPV 10.8 9.1 - 12.3 fL [facility] RBC 3.38(L) 4.30 - 5.80 M/cumm CERNER [...] CDT 01/04/2025 4:39 AM CDT Maureen Martinez CALL SPECIALIST LAB BLOOD ORDERABLES Fin al Result Performing Organization Address City/[facility] Co de Phone Number [facility] [address] Kaylene [facility] [place] [address] * Magnesium (01/04/2025 4:34 AM CDT) [facility] Magnesium 2.1 1.4 - 2.5 mg/dL Blood 01/04/2025 4:34 AM CDT 01/04/2025 4:38 AM CDT Maureen Martinez CALL SPECIALIST LAB BLOOD ORDERABLES Fin al Result Performing Organization Address [facility] de Phone Number [facility] [address] Kaylene [facility] [place] [address] * (ABNORMAL) Hepatic function panel (01/04/2025 4:34 AM CDT) Bilirubin, total 2.2(H) 0.1 - 1.2 mg/dL Bilirubin, direct 1.2(H) 0.1 - 0.3 mg/dL [facility] Protein, pl 5.3(L) 6.5 - 8.5 g/dL [facility] Albumin 3.1(L) 3.5 - 5.0 g/dL [facility] Alk phos 215(H) 40 - 130 Units/L [facility] CH ALT 50 7 - 55 Units/L [facility] CH AST 65(H) 10 - 50 Units/L [facility] CH Blood 01/04/2025 4:34 AM CDT 01/04/2025 11:48 AM CDT Venus Iqbal CALL SPECIALIST LAB BLOOD ORDERABL ES Final Result [facility] [address] Department [place] [address] * (ABNORMAL) Renal function panel (01/04/2025 4:34 [...] CDT 01/04/2025 4:38 AM CDT Maureen Martinez CALL SPECIALIST LAB BLOOD ORDERABLES Fin al Result Performing Organization Address City/[facility]/ZIP Co de Phone Number ARON BHAT [address] Kaylene Department [place] [address] * POCT glucose (01/03/2025 7:55 PM CDT) Glucose, POC 131 70 - 199 mg/dL POC Performer [id number] [facility] Blood 01/03/2025 7:55 PM CDT 01/03/2025 7:55 PM CDT us Angel Gonzalez MD LAB POCT ORDERABLES - DEVICE Final Result Performing Organization Address [facility] Co de Phone Number ARON BHAT [address] Kaylene Department [place] [address] * Critical Care (01/03/2025 7:51 PM CDT) [...] plan with the patient's team and other medical/system sales consultant staff. This time was in addition [...] 133 70 - 199 mg/dL POC Performer [id number] [facility] Blood 01/03/2025 4:44 PM CDT 01/03/2025 4:44 PM CDT Angel Gonzalez MD LAB POCT ORDERABLES - DEVICE Final Result Performing Organization Address [facility] Co de Phone Number [facility] [address] [address] Department [place] [address] * Calcium, ionized, whole blood (01/03/2025 2:19 PM CDT) Ca, ionized, bld 4.54 4.50 - 5.10 mg/dL Blood 01/03/2025 2:19 PM CDT 01/03/2025 2:28 PM CDT Angel Gonzalez MD LAB BLOOD ORDERABLES Final R esult Performing Organization Address [facility] de Phone Number [facility] [address] [address] Department [place] [address] * (ABNORMAL) eGFR (01/03/2025 2:19 PM CDT) [...] ORDERABLES Final R esult Performing Organization Address City/[facility]/ZIP Co de Phone Number ARON Rojo33 Kaylene Department [email or web address] [address] * (ABNORMAL) CBC without differential [...] BLOOD ORDERABLES Final R esult ARON BHAT [address] Kaylene Department [place] [address] * Magnesium (01/03/2025 2:19 PM CDT) Magnesium 2.1 1.4 - 2.5 mg/dL Blood 01/03/2025 2:19 PM CDT 01/03/2025 2:28 PM CDT Angel Gonzalez MD LAB BLOOD ORDERABLES Final R esult Performing Organization Address City/[facility] Co de Phone Number ARON BHAT [address] Kaylene Department [email or web address] [address] * (ABNORMAL) Basic metabolic panel (01/03/2025 2:19 PM CDT) [facility] Sodium 137 135 - 145 mmol/L Potassium, pl 3.6 3.3 - 4.9 mmol/L [facility] Chloride 99 97 - 110 mmol/L [facility] CO2 26 22 - 32 mmol/L [facility] Anion gap 12 2 - 15 mmol/L [facility] BUN 31(H) 6 - 25 mg/dL [facility] Creatinine 1.33(H) 0.80 - 1.30 mg/dL [facility] Comment:Icteric sample, test results may be affected. Glucose 187 70 - 199 mg/dL [facility] Comment: Interpretive Data Fasting glucose >/= 126 [...] 2022. Calcium 9.0 8.5 - 10.3 mg/dL [facility] Blood 01/03/2025 2:19 PM CDT 01/03/2025 2:28 PM CDT Angel Gonzalez MD LAB BLOOD ORDERABLES Final R esult Performing Organization Address [facility] Co de Phone Number ARON BHAT [address] Kaylene Department [email or web address] [address] * POCT glucose (01/03/2025 12:28 PM CDT) Glucose, POC 127 70 - 199 mg/dL POC Performer [id number] ARON Blood 01/03/2025 12:2 8 PM CDT 01/03/2025 12:28 PM CDT Angel Gonzalez MD LAB POCT ORDERABLES - DEVICE Final Result Performing Organization Address [facility] Co de Phone Number [facility] [address] Kaylene Department [place] [address] * (ABNORMAL) Protime-INR (01/03/2025 11:13 AM CDT) Pathologist [facility] PT 13.2(H) 9.7 - 13.0 sec INR [...] ORDERABL ES Final Result Performing Organization Address [facility] de Phone Number [facility] [address] Kaylene Department [place] [address] * (ABNORMAL) Lactate dehydrogenase (LD) (01/03/2025 11:13 AM CDT) Pathologist [facility] Lactate dehydrogenase (LDH) 316(H) 100 - 250 Units/L Blood 01/03/2025 11:1 3 AM CDT 01/03/2025 11:16 AM CDT Venus Iqbal NP LAB BLOOD ORDERABL ES Final Result Performing Organization Address City/[facility] Co de Phone Number ARON BHAT [address] Kaylene Department [place] [address] * (ABNORMAL) Haptoglobin (01/03/2025 11:13 AM CDT) Haptoglobin 208(H) 30 - 200 mg/dL Comment:Hemolysis present. R esults may be affected. Blood 01/03/2025 11:1 3 AM CDT 01/03/2025 11:16 AM CDT Venusjustice Johnson Farida MADDEN LAB BLOOD ORDERABL ES Final Result Performing Organization Address [facility] Co de Phone Number ARON BHAT [address] Kaylene Department [place] [address] * Clinical pathology report (01/03/2025 11:11 AM CDT) Miscellaneous 01/03/2025 11: 11 AM CDT 01/03/2025 1:00 PM CDT Narrative 01/03/2025 2:10 PM CDT EPIC results best viewed via link to PDF [facility] Department of Pathology [address] [place] [id number] Final Report Note to Patients: This [...] the details. Patient Name: DENISE JAMES Address: [facility] [address], [place], [place] [address] Gender: M : 1945 (Age: 79) Service: Cardiothoracic Location: [facility] Hospital #: [id number] Patient Type: [facility] Taken: 01/03/2025 Received: 01/03/2025 [...] determined by the Surgical Pathology Department at [facility] as part of an ongoing manufacturing quality engineer program and in compliance with federally mandated [...] characteristics determined by the Surgical Pathology Department [facility]. It has not been cleared or approved [...] plan with the ICU team and other medical/system sales consultant staff, making frequent assessments and decisions [...] * POCT glucose (01/03/2025 7:51 AM CDT) [facility] Glucose, POC 135 70 - 199 mg/dL POC Performer [id number] ARON BHAT Blood 01/03/2025 7:51 AM CDT 01/03/2025 7:51 AM CDT us Angel Gonzalez MD LAB POCT ORDERABLES - DEVICE Final Result ARON BHAT [address] Kaylene Valdez Department [place] [address] * XR Chest 1 View [...] drain in place. The tip of the Houston-Maryanne catheter is in the undivided main pulmonary [...] drain in place. The tip of the Houston-Maryanne catheter is in the undivided main pulmonary [...] LAB BLOOD ORDERABLES Fin al Result ARON [address] Kaylene Valdez Department [place] [address] * (ABNORMAL) eGFR (01/03/2025 4:04 AM CDT) Pathologist [facility] eGFR 57(L) >=60 mL/min/1. 73 m2 Comment: [...] NP LAB BLOOD ORDERABLES Fin al Result [facility] [address] Kaylene Valdez Department [place] [address] * (ABNORMAL) CBC without differential (01/03/2025 4:04 AM CDT) Pathologist [facility] WBC 4.21 3.80 - 9.90 K/cumm Hgb 9.6(L) 13.0 - 17.5 g/dL [facility] Hct 29.7(L) 38.9 - 50.3 % [facility] Plt 76(L) 150 - 400 K/cumm [facility] MPV 10.8 9.1 - 12.3 fL [facility] RBC 3.30(L) 4.30 - 5.80 M/cumm [facility] MCV 90.0 81.3 - 96.4 fL [facility] CH MCH 29.1 27.1 - 33.3 pg [facility] CH MCHC 32.3 32.3 - 35.7 g/dL [facility] CH RDW CV 15.2(H) 11.1 - 14.9 % [facility] CH RDW SD 50.0(H) 35.7 - 48.1 fL [facility] CH NRBC abs 0.00 0.00 - 0.01 K/cumm [facility] CH Blood 01/03/2025 4:04 AM CDT 01/03/2025 4:22 AM CDT Maureen Martinez CALL SPECIALIST LAB BLOOD ORDERABLES Fin al Result Performing Organization Address [facility] Co de Phone Number [facility] [address] Kaylene [facility] [place] [address] * Phosphorus (01/03/2025 4:04 AM CDT) Phosphorus, pl 2.9 2.3 - 4.5 mg/dL Blood 01/03/2025 4:04 AM CDT 01/03/2025 4:18 AM CDT Maureen Martinez CALL SPECIALIST LAB BLOOD ORDERABLES Fin al Result Performing Organization Address [facility] de Phone Number [facility] [address] Kaylene [facility] [place] [address] * Magnesium (01/03/2025 4:04 AM CDT) Magnesium 2.2 1.4 - 2.5 mg/dL Blood 01/03/2025 4:04 AM CDT 01/03/2025 4:18 AM CDT Maureen Martinez CALL SPECIALIST LAB BLOOD ORDERABLES Fin al Result Performing Organization Address [facility] Co de Phone Number [facility] [address] Kaylene [facility] [place] [address] * (ABNORMAL) Bilirubin, direct (01/03/2025 4:04 AM CDT) Bilirubin, direct 1.6(H) 0.1 - 0.3 mg/dL Blood 01/03/2025 4:04 AM CDT 01/03/2025 4:18 AM CDT us Maureen Martinez CALL SPECIALIST LAB BLOOD ORDERABLES Fin al Result [facility] [address] Kaylene Valdez Department [place] [address] * (ABNORMAL) Comprehensive metabolic panel (01/03/2025 4:04 [...] affected. Glucose 122 70 - 199 mg/dL [facility] Comment: Interpretive Data Fasting glucose >/= 126 [...] ORDERABLES Fin al Result Performing Organization Address [facility]/ZIP Co de Phone Number ARON BHAT [address] [address] Department [place] [address] * POCT glucose (01/03/2025 4:01 AM CDT) Glucose, POC 118 70 - 199 mg/dL POC Performer [id number] [facility] CH Blood 01/03/2025 4:01 AM CDT 01/03/2025 4:01 AM CDT us Angel Gonzalez MD LAB POCT ORDERABLES - DEVICE Final Result Performing Organization Address [facility] Co de Phone Number ARON BHAT [address] Maurice Department [place] [address] * Critical Care (01/02/2025 8:52 PM CDT) [...] plan with the ICU team and other medical/system sales consultant staff, making frequent assessments and decisions [...] 133 70 - 199 mg/dL POC Performer [id number] [facility] Blood 01/02/2025 7:4 6 PM CDT 01/02/2025 7:46 PM CDT Angel Gonzalez MD LAB POCT ORDERABLES - DEVICE Final Result Performing Organization Address [facility] de Phone Number ARON BHAT [address] Kaylene [facility] [place] [address] * Transfuse RBC (01/02/2025 6:00 PM CDT) Blood Result Bettina Gonzalez MD BLOOD TRANSFUSION ORDERABLES Final Result Performing Organization Address [facility] Co de Phone Number ARON BHAT [address] Kaylene [facility] [employer] [place], [place] [address] * POCT glucose (01/02/2025 4:53 PM CDT) Glucose, POC 138 70 - 199 mg/dL POC Performer [id number] [facility] Blood 01/02/2025 4:53 PM CDT 01/02/2025 4:53 PM CDT us Angel Gonzalez MD LAB POCT ORDERABLES - DEVICE Final Result Performing Organization Address [facility] Co de Phone Number ARON [address] Kaylene [facility] [place] [address] * Calcium, ionized, whole blood (01/02/2025 2:35 PM CDT) Ca, ionized, bld 4.82 4.50 - 5.10 mg/dL Blood 01/02/2025 2:35 PM CDT 01/02/2025 2:49 PM CDT Angel Gonzalez MD LAB BLOOD ORDERABLES Final R esult ARON BHAT [address] Kaylene Valdez [employer] [place], [place] [address] * (ABNORMAL) eGFR (01/02/2025 2:35 PM CDT) [...] BLOOD ORDERABLES Final R esult ARON HOME [address] Kaylene Valdez Department [email or web address] [place], [place] [id number] * (ABNORMAL) Differential, auto (01/02/2025 2:35 PM CDT) Neutrophil abs 3.37 1.50 - 6.50 K/cumm Imm gran abs 0.01 0.00 - 0.10 K/cumm [facility] Lymphocyte abs 0.35(L) 0.80 - 3.30 K/cumm [facility] Monocyte abs 0.24 0.20 - 0.80 K/cumm [facility] Eosinophil abs 0.01 0.00 - 0.50 K/cumm [facility] Basophil abs 0.00 0.00 - 0.10 K/cumm [facility] Neutrophil pct 84.6 % [facility] Comment: Interpretive [...] BLOOD ORDERABLES Final R esult ARON BHAT [address] Kaylene Department [email or web address] [address] * (ABNORMAL) CBC with auto differential (01/02/2025 2:35 PM CDT) WBC 3.98 3.80 - 9.90 K/cumm Hgb 8.9(L) 13.0 - 17.5 g/dL [facility] Hct 27.1(L) 38.9 - 50.3 % [facility] Plt 83(L) 150 - 400 K/cumm [facility] MPV 11.3 9.1 - 12.3 fL [facility] RBC 2.98(L) 4.30 - 5.80 M/cumm [facility] MCV 90.9 81.3 - 96.4 fL [facility] MCH 29.9 27.1 - 33.3 pg [facility] MCHC 32.8 32.3 - 35.7 g/dL [facility] CH RDW CV 14.8 11.1 - 14.9 % [facility] CH RDW SD 49.4(H) 35.7 - 48.1 fL [facility] NRBC abs 0.00 0.00 - 0.01 K/cumm [facility] Blood 01/02/2025 2:35 PM CDT 01/02/2025 2:51 PM CDT Angel Gonzalez MD LAB BLOOD ORDERABLES Final R esult ARON BHAT [address] Department [place] [address] * Phosphorus (01/02/2025 2:35 PM CDT) Phosphorus, pl 2.5 2.3 - 4.5 mg/dL Blood 01/02/2025 2:35 PM CDT 01/02/2025 2:49 PM CDT us Angel Gonzalez MD LAB BLOOD ORDERABLES Final R esult ARON BHAT [address] Kaylene [facility] [email or web address] [address] * Magnesium (01/02/2025 2:35 PM CDT) Magnesium 2.1 1.4 - 2.5 mg/dL Blood 01/02/2025 2:35 PM CDT 01/02/2025 2:49 PM CDT Angel Gonzalez MD LAB BLOOD ORDERABLES Final R esult Performing Organization Address [facility] Co de Phone Number ARON BHAT [address] Kaylene [facility] [email or web address] [address] * (ABNORMAL) Blood gas, arterial [...] ORDERABLES Final R esult Performing Organization Address City/[facility]/ZIP Co de Phone Number ARON BHAT [address] Kaylene [facility] [place] [address] * (ABNORMAL) Basic metabolic panel (01/02/2025 2:35 PM CDT) Sodium 145 135 - 145 mmol/L Potassium, pl 3.7 3.3 - 4.9 mmol/L [facility] Chloride 109 97 - 110 mmol/L [facility] CO2 26 22 - 32 mmol/L [facility] Anion gap 10 2 - 15 mmol/L [facility] BUN 28(H) 6 - 25 mg/dL [facility] Creatinine 1.37(H) 0.80 - 1.30 mg/dL [facility] Comment:Icteric sample, test results may be affected. Glucose 152 70 - 199 mg/dL [facility] Comment: Interpretive Data Fasting glucose >/= 126 [...] 2022. Calcium 8.8 8.5 - 10.3 mg/dL [facility] Blood 01/02/2025 2:35 PM CDT 01/02/2025 2:49 PM CDT Angel Gonzalez MD LAB BLOOD ORDERABLES Final R esult Performing Organization Address City/[facility] Co de Phone Number ARON BHAT [address] Kaylene Valdez [employer] [address] * POCT glucose (01/02/2025 1:18 PM CDT) [facility] Signature Glucose, POC 174 70 - 199 mg/dL POC Performer [id number] [facility] Blood 01/02/2025 1:18 PM CDT 01/02/2025 1:18 PM CDT Angel Gonzalez MD LAB POCT ORDERABLES - DEVICE Final Result Performing Organization Address [facility] Co de Phone Number ARON BHAT [address] Kaylene Valdez Department [employer] [place], [place] [id number] * (ABNORMAL) POCT glucose (01/02/2025 1:16 PM CDT) Glucose, POC 61(L) 70 - 199 mg/dL POC Performer [phone] CERNER CH Blood 01/02/2025 1:16 PM CDT 01/02/2025 1:16 PM CDT Angel Gonzalez MD LAB POCT ORDERABLES - DEVICE Final Result Performing Organization Address [facility] de Phone Number ARON BHAT [address]167 Kaylene Department [place] [address] * Prepare RBC: 1 Units (01/02/2025 11:36 AM CDT) [facility] Product code [id number] Unit Number [id number] 9-A CERNER CH Product Blood Type BNEG CERNER CH Dispense Status RETURNED [facility] Blood 01/02/2025 11:3 6 AM CDT Narrative [facility] CH - 01/03/2025 12:26 AM CDT 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 (All products are leukoreduced and CMV- safe)- >No Date required:-20250102 LRRBC # of [id number] Reasons:-Other (specify)} Angel Gonzalez MD BLOOD BANK PRODUCT ORDERABLE S Final Result Performing Organization Address [facility] de Phone Number ARON BHAT [address] Kaylene Department [email or web address] [address] * Oxyhemoglobin, pulmonary artery (01/02/2025 10:01 AM CDT) Oxyhemoglobin, PA 53.7 % Comment: Interpretive Data No reference range established. Current interpretive data was last revised 2019. Blood 01/02/2025 10:0 1 AM CDT 01/02/2025 10:04 AM CDT Angel Gonzalez MD LAB BLOOD ORDERABLES Final R esult Performing Organization Address City/[facility]/ZIP Co de Phone Number ARON BHAT [address] Kaylene Department [place] [address] * POCT glucose (01/02/2025 8:28 AM CDT) Glucose, POC 166 70 - 199 mg/dL POC Performer [id number] ARON Blood 01/02/2025 8:28 AM CDT 01/02/2025 8:28 AM CDT Angel Gonzalez MD LAB POCT ORDERABLES - DEVICE Final Result Performing Organization Address [facility] Co de Phone Number ARON BHAT [address] Kaylene Department [place] [address] * Critical Care (01/02/2025 6:54 AM CDT) [...] plan with the ICU team and other medical/system sales consultant staff, making frequent assessments and decisions [...] in unchanged position. The tip of the Houston-Maryanne catheter is in the undivided main pulmonary [...] in unchanged position. The tip of the Houston-Maryanne catheter is in the undivided main pulmonary artery. Left lower lobe infiltrate noted with the remainder of the lungs being clear. Heart not enlarged. No failure. IMPRESSION: No failure Electronically signed by: Sangeeta Harmon M.D. Maureen Martinez CALL SPECIALIST IMG XR PROCEDURES Final Result * POCT glucose (01/02/2025 3:36 AM CDT) [facility] Signature Glucose, POC 152 70 - 199 mg/dL POC Performer [id number] [facility] Blood 01/02/2025 3:36 AM CDT 01/02/2025 3:36 AM CDT us Angel Gonzalez MD LAB POCT ORDERABLES - DEVICE Final Result ARON BHAT [address] Kaylene Department [place] [address] * Calcium, ionized, whole blood (01/02/2025 2:14 AM CDT) Ca, ionized, bld 4.78 4.50 - 5.10 mg/dL Blood 01/02/2025 2:14 AM CDT 01/02/2025 2:21 AM CDT Maureen Martinez CALL SPECIALIST LAB BLOOD ORDERABLES Fin al Result Performing Organization Address [facility] Co de Phone Number ARON BHAT [address] [address] Department [place] [address] * (ABNORMAL) eGFR (01/02/2025 2:14 AM CDT) [...] CDT 01/02/2025 2:24 AM CDT Maureen Martinez CALL SPECIALIST LAB BLOOD ORDERABLES Fin al Result Performing Organization Address City/[facility]/ZIP Co de Phone Number ARON BHAT [address] Department [email or web address] [address] * (ABNORMAL) CBC without differential [...] CDT 01/02/2025 2:19 AM CDT Maureen Martinez CALL SPECIALIST LAB BLOOD ORDERABLES Fin al Result Performing Organization Address City/[facility]/ZIP Co de Phone Number ARON BHAT [address] Department [employer] [place], [place] [id number] * Magnesium (01/02/2025 2:14 AM CDT) Magnesium 2.3 1.4 - 2.5 mg/dL Blood 01/02/2025 2:14 AM CDT 01/02/2025 2:24 AM CDT Maureen Martinez CALL SPECIALIST LAB BLOOD ORDERABLES Fin al Result Performing Organization Address City/[facility]/ZIP Co de Phone Number ARON BHAT [address] Kaylene [place] [address] * (ABNORMAL) Renal function panel (01/02/2025 2:14 AM CDT) Sodium 145 135 - 145 mmol/L Potassium, pl 4.2 3.3 - 4.9 mmol/L CERNER Chloride 109 97 - 110 mmol/L CERNER CH CO2 25 22 - 32 mmol/L CERNER CH Anion gap 11 2 - 15 mmol/L [facility] BUN 26(H) 6 - 25 mg/dL CERNER Creatinine 1.33(H) 0.80 - 1.30 mg/dL CERNER CH Comment:Icteric sample, test results may be affected. Glucose 146 70 - 199 mg/dL [facility] Comment: Interpretive Data Fasting glucose >/= 126 [...] 2022. Calcium 9.1 8.5 - 10.3 mg/dL [facility] Phosphorus, pl 2.5 2.3 - 4.5 mg/dL CERNER Albumin 3.5 3.5 - 5.0 g/dL CERNER Blood 01/02/2025 2:14 AM CDT 01/02/2025 2:24 AM CDT Maureen Martinez CALL SPECIALIST LAB BLOOD ORDERABLES Fin al Result Performing Organization Address City/[facility]/ZIP Co de Phone Number ARON BHAT [address] [address] Department [email or web address] [address] * POCT glucose (01/01/2025 11:59 PM CDT) Glucose, POC 137 70 - 199 mg/dL POC Performer [id number] C[facility]ER CH Blood 01/01/2025 11:5 9 PM CDT 01/01/2025 11:59 PM CDT Angel Gonzalez MD LAB POCT ORDERABLES - DEVICE Final Result Performing Organization Address [facility] Co de Phone Number ARON BHAT [address] Maurice [facility] [place] [address] * POCT glucose (01/01/2025 9:06 PM CDT) Glucose, POC 164 70 - 199 mg/dL POC Performer [id number] CERNER CH Blood 01/01/2025 9:06 PM CDT 01/01/2025 9:06 PM CDT Angel Gonzalez MD LAB POCT ORDERABLES - DEVICE Final Result Performing Organization Address [facility] de Phone Number ARON [address] Maurice [facility] [place] [address] * Critical Care (01/01/2025 7:22 PM CDT) [...] plan with the ICU team and other medical/system sales consultant staff, making frequent assessments and decisions [...] - DEVICE Final Result Performing Organization Address City/[facility]/ZIP Co de Phone Number ARON BHAT [address] Kaylene [facility] [place] [address] * (ABNORMAL) POCT glucose (01/01/2025 4:32 PM CDT) Glucose, POC 208(H) 70 - 199 mg/dL POC Performer [id number] C[facility]ER CH Blood 01/01/2025 4:32 PM CDT 01/01/2025 4:32 PM CDT Angel Gonzalez MD LAB POCT ORDERABLES - DEVICE Final Result Performing Organization Address [facility] Co de Phone Number ARON BHAT [address] Kaylene Department [place] [address] * (ABNORMAL) POC Blood Gas and Chemistries, [...] - DEVICE Final Result Performing Organization Address [facility] Co de Phone Number ARON HOME [address] Kaylene Valdez [facility] [place] [address] * (ABNORMAL) POCT glucose (01/01/2025 12:20 PM CDT) Glucose, POC 228(H) 70 - 199 mg/dL POC Performer [id number] [facility] CH Blood 01/01/2025 12:2 0 PM CDT 01/01/2025 12:20 PM CDT Angel Gonzalez MD LAB POCT ORDERABLES - DEVICE Final Result Performing Organization Address [facility] Co de Phone Number ARON HOME [address] Kaylene Valdez [facility] [place] [address] * Calcium, ionized, whole blood (01/01/2025 11:58 AM CDT) Ca, ionized, bld 5.06 4.50 - 5.10 mg/dL Blood 01/01/2025 11:5 8 AM CDT 01/01/2025 12:02 PM CDT Angel Gonzalez MD LAB BLOOD ORDERABLES Final R esult Performing Organization Address [facility]/ZIP Co de Phone Number LETIBERTO BHAT [address] Kaylene Valdez [facility] [place] [address] * eGFR (01/01/2025 11:58 AM [...] LAB BLOOD ORDERABLES Final R esult ARON [address] Kaylene Department [place] [address] * (ABNORMAL) CBC without differential (01/01/2025 11:58 AM CDT) WBC 5.21 3.80 - 9.90 K/cumm Hgb 8.8(L) 13.0 - 17.5 g/dL [facility] Hct 26.1(L) 38.9 - 50.3 % [facility] Plt 81(L) 150 - 400 K/cumm [facility] MPV 10.9 9.1 - 12.3 fL [facility] RBC 2.93(L) 4.30 - 5.80 M/cumm [facility] MCV 89.1 81.3 - 96.4 fL [facility] MCH 30.0 27.1 - 33.3 pg [facility] MCHC 33.7 32.3 - 35.7 g/dL [facility] RDW CV 14.6 11.1 - 14.9 % [facility] RDW SD 47.5 35.7 - 48.1 fL [facility] NRBC abs 0.00 0.00 - 0.01 K/cumm [facility] Blood 01/01/2025 11:5 8 AM CDT 01/01/2025 12:02 PM CDT Angel Gonzalez MD LAB BLOOD ORDERABLES Final R esult ARON [address] Kaylene [facility] [place] [address] * Phosphorus (01/01/2025 11:58 AM CDT) Phosphorus, pl 3.2 2.3 - 4.5 mg/dL Blood 01/01/2025 11:5 8 AM CDT 01/01/2025 12:02 PM CDT Angel Gonzalez MD LAB BLOOD ORDERABLES Final R esult Performing Organization Address City/[facility] Co de Phone Number [facility] [address] Kaylene Department [employer] [place], [place] [address] * Magnesium (01/01/2025 11:58 AM CDT) Magnesium 2.1 1.4 - 2.5 mg/dL Blood 01/01/2025 11:5 8 AM CDT 01/01/2025 12:02 PM CDT Angel Gonzalez MD LAB BLOOD ORDERABLES Final R esult Performing Organization Address City/[facility]/ZIP Co de Phone Number ARON [address] Kaylene Department of [employer] [place], [place] [address] * (ABNORMAL) Blood gas, arterial (01/01/2025 11:58 [...] NP LAB BLOOD ORDERABLES Fin al Result [facility] [address] Kaylene Valdez Department [place] [address] * (ABNORMAL) Basic metabolic panel (01/01/2025 11:58 AM CDT) Sodium 145 135 - 145 mmol/L Potassium, pl 3.8 3.3 - 4.9 mmol/L [facility] Chloride 109 97 - 110 mmol/L [facility] CO2 24 22 - 32 mmol/L CERNER CH Anion gap 12 2 - 15 mmol/L [facility] BUN 22 6 - 25 mg/dL [facility] Creatinine 1.03 0.80 - 1.30 mg/dL [facility] Comment:Icteric sample, test results may be affected. Glucose 226(H) 70 - 199 mg/dL [facility] Comment: Interpretive Data Fasting glucose >/= 126 [...] BLOOD ORDERABLES Final R esult ARON BHAT [address] Kaylene Department [place] [address] * (ABNORMAL) POC Blood Gas and Chemistries, [...] - DEVICE Final Result Performing Organization Address [facility] Co de Phone Number ARON [address] Kaylene [facility] [place] [address] * (ABNORMAL) POCT glucose (01/01/2025 8:03 AM CDT) Glucose, POC 251(H) 70 - 199 mg/dL POC Performer [id number] [facility] Blood 01/01/2025 8:03 AM CDT 01/01/2025 8:03 AM CDT Angel Gonzalez MD LAB POCT ORDERABLES - DEVICE Final Result Performing Organization Address [facility] de Phone Number ARON [address] Maurice [facility] [place] [address] * ECG 12 lead (01/01/2025 7:41 AM CDT) 01/01/2025 7:41 AM CDT Narrative [facility] - 01/01/2025 6:31 PM CDT Vent Rate: 181 bpm RR Interval: 331 msec CO Interval: 0 msec QRS Duration: 88 msec QT Interval: 242 msec QTC Interval: 337 msec P-R-T Dickens: 0 - 22 - 9 degrees IMPRESSION: ATRIAL FIBRILLATION WITH RAPID VENTRICULAR RESPONSE NONSPECIFIC ST \T\ T-WAVE ABNORMALITY CRITICAL TEST RESULT Electronically Signed By: Dr. Emiliano Cuello [facility] Angel Gonzalez MD ECG ORDERABLES Final Result Performing Organization Address [facility] Co de Phone Number [facility] Kaliki [facility] * Critical Care (01/01/2025 6:50 AM [...] plan with the ICU team and other medical/system sales consultant staff, making frequent assessments and decisions [...] in the medical record us Maureen Martinez CALL SPECIALIST IN CLINIC/BEDSIDE ORDERA BLES Final Result * [...] nasogastric tubes. Chest drains mediastinal drain and Houston-Maryanne catheter remain in place. Mild pulmonary vascular congestion with bibasilar atelectasis with no pneumothorax Procedure Note Jesus Omer MD - 01/01/2025 EXAMINATION: XR CHEST 1 VIEW DATE: 01/01/2025 5:20 AM HISTORY: Cardiac surgery follow-up FINDINGS:When compared with study of the prior day, the patient has been extubated with removal of endotracheal and nasogastric tubes. Chest drains mediastinal drain and [place]-Maryanne catheter remain in place. Mild pulmonary vascular congestion with bibasilar atelectasis with no pneumothorax IMPRESSION: Mild failure. No pneumothorax. Bibasilar atelectasis. Extubation. Electronically signed by: Jesus Omer M.D. Maureen Martinez CALL SPECIALIST IMG XR PROCEDURES Final Result * (ABNORMAL) [...] ORDERABLES Fin al Result Performing Organization Address [facility] de Phone Number ARON [address] Kaylene [employer] [place], [place] [id number] * (ABNORMAL) Fibrinogen (01/01/2025 2:36 AM CDT) Fibrinogen 463(H) 170 - 400 mg/dL Blood 01/01/2025 2:36 AM CDT 01/01/2025 2:36 AM CDT Maureen Martinez NP LAB BLOOD ORDERABLES Fin al Result Performing Organization Address [facility] de Phone Number [facility] [address] Kaylene [facility] [place] [address] * (ABNORMAL) CBC without differential (01/01/2025 2:36 [...] ORDERABLES Fin al Result Performing Organization Address [facility] de Phone Number LETIBERTO [address] Kaylene [facility] [email or web address] [address] * (ABNORMAL) Calcium, ionized, whole blood (01/01/2025 2:31 AM CDT) Pathologist [facility] Ca, ionized, bld 4.44(L) 4.50 - 5.10 mg/dL Blood 01/01/2025 2:31 AM CDT 01/01/2025 2:36 AM CDT Maureen Martinez NP LAB BLOOD ORDERABLES Fin al Result Performing Organization Address City/[facility] Co de Phone Number [facility] [address] Kaylene [facility] [place] [address] * eGFR (01/01/2025 2:31 AM CDT) eGFR [...] ORDERABLES Fin al Result Performing Organization Address City/[facility] Co de Phone Number [facility] [address] Kaylene Valdez Department [email or web address] [address] * Phosphorus (01/01/2025 2:31 AM CDT) Pathologist [facility] Phosphorus, pl 3.5 2.3 - 4.5 mg/dL Blood 01/01/2025 2:31 AM CDT 01/01/2025 2:36 AM CDT Maureen Martinez NP LAB BLOOD ORDERABLES Fin al Result Performing Organization Address [facility] [place] [address] Kaylene Valdez Department [place] [address] * Magnesium (01/01/2025 2:31 AM CDT) Magnesium 2.0 1.4 - 2.5 mg/dL Blood 01/01/2025 2:31 AM CDT 01/01/2025 2:36 AM CDT Maureen Martinez CALL SPECIALIST LAB BLOOD ORDERABLES Fin al Result Performing Organization Address [facility] de Phone Number ARON BHAT [address] Kaylene Department [place] [address] * (ABNORMAL) Bilirubin, direct (01/01/2025 2:31 AM CDT) [facility] Bilirubin, direct 1.3(H) 0.1 - 0.3 mg/dL Blood 01/01/2025 2:31 AM CDT 01/01/2025 2:36 AM CDT Maureen Martinez CALL SPECIALIST LAB BLOOD ORDERABLES Fin al Result Performing Organization Address [facility] de Phone Number [facility] [address] Kaylene Department [place] [address] * (ABNORMAL) Comprehensive metabolic panel (01/01/2025 2:31 AM CDT) [facility] Sodium 147(H) 135 - 145 mmol/L Potassium, pl 4.0 3.3 - 4.9 mmol/L [facility] Chloride 112(H) 97 - 110 mmol/L [facility] CO2 23 22 - 32 mmol/L [facility] Anion gap 12 2 - 15 mmol/L [facility] BUN 22 6 - 25 mg/dL [facility] Creatinine 1.16 0.80 - 1.30 mg/dL [facility] Comment:Icteric sample, test results may be affected. Glucose 140 70 - 199 mg/dL [facility] Comment: Interpretive Data Fasting glucose >/= 126 [...] ORDERABLES Fin al Result Performing Organization Address [facility]/ZIP Co de Phone Number ARON BHAT [address] Kaylene Valdez Department [email or web address] [address] * POCT glucose (12/31/2024 11:45 PM CDT) Glucose, POC 143 70 - 199 mg/dL POC Performer [id number] CERNER CH Blood 12/31/2024 11:4 5 PM CDT 12/31/2024 11:45 PM CDT us Angel Gonzalez MD LAB POCT ORDERABLES - DEVICE Final Result ARON [address] Kaylene Valdez Department of [employer] [place], [place] [address] * POCT glucose (12/31/2024 9:49 PM CDT) Glucose, POC 131 70 - 199 mg/dL POC Performer [id number] CERNER CH Blood 12/31/2024 9:49 PM CDT 12/31/2024 9:49 PM CDT Angel Gonzalez MD LAB POCT ORDERABLES - DEVICE Final Result Performing Organization Address City/[facility] Co de Phone Number ARON BHAT [address] Kaylene Department [place] [address] * POCT glucose (12/31/2024 8:18 PM CDT) [facility] Signature Glucose, POC 106 70 - 199 mg/dL POC Performer [id number] [facility] Blood 12/31/2024 8:18 PM CDT 12/31/2024 8:18 PM CDT Angel Gonzalez MD LAB POCT ORDERABLES - DEVICE Final Result Performing Organization Address [facility] Co de Phone Number ARON BHAT [address] Kaylene Department [place] [address] * Critical Care (12/31/2024 7:12 PM CDT) [...] plan with the ICU team and other medical/system sales consultant staff, making frequent assessments and decisions [...] 104 70 - 199 mg/dL POC Performer [id number] ARON Blood 12/31/2024 6:43 PM CDT 12/31/2024 6:43 PM CDT Angel Gonzalez MD LAB POCT ORDERABLES - DEVICE Final Result ARON [address] Kaylene Department [place] [address] * eGFR (12/31/2024 5:57 PM CDT) eGFR [...] ORDERABLES Final R esult Performing Organization Address [facility] Co de Phone Number ARON BHAT [address] Department [place] [address] * (ABNORMAL) CBC without differential (12/31/2024 5:57 PM CDT) WBC 5.29 3.80 - 9.90 K/cumm Hgb 8.4(L) 13.0 - 17.5 g/dL [facility] CH Hct 24.8(L) 38.9 - 50.3 % [facility] CH Plt 94(L) 150 - 400 K/cumm CERNER CH MPV 11.0 9.1 - 12.3 fL [facility] RBC 2.82(L) 4.30 - 5.80 M/cumm CERNER CH MCV 87.9 81.3 - 96.4 fL [facility]ERNER CH MCH 29.8 27.1 - 33.3 pg CERNER CH MCHC 33.9 32.3 - 35.7 g/dL [facility] CH RDW CV 14.2 11.1 - 14.9 % CERNER CH RDW SD 45.2 35.7 - 48.1 fL CERNER CH NRBC abs 0.00 0.00 - 0.01 K/cumm [facility] Blood 12/31/2024 5:57 PM CDT 12/31/2024 6:07 PM CDT Angel Gonzalez MD LAB BLOOD ORDERABLES Final R esult Performing Organization Address City/[facility] Co de Phone Number ARON BHAT [address] Kaylene Department of Laboratories [place], [place] [address] * (ABNORMAL) Basic metabolic panel (12/31/2024 5:57 [...] ORDERABLES Final R esult Performing Organization Address [facility] Co de Phone Number [facility] [address] Kaylene Department [place] [address] * Transfuse platelets (12/31/2024 5:28 PM CDT) Blood Angel Gonzalez MD BLOOD TRANSFUSION ORDERABLES Final Result Performing Organization Address [facility] Co de Phone Number [facility] [address] Kaylene Department [place] [address] * Calcium, ionized, whole blood (12/31/2024 5:04 PM CDT) Ca, ionized, bld 4.67 4.50 - 5.10 mg/dL Blood 12/31/2024 5:04 PM CDT 12/31/2024 6:05 PM CDT Maureen Martinez NP LAB BLOOD ORDERABLES Fin al Result Performing Organization Address City/[facility] Co de Phone Number ARON [address] [facility] Department [place] [address] * Clinical pathology report (12/31/2024 5:04 PM CDT) Miscellaneous 12/31/2024 5:0 4 PM CDT 01/01/2025 8:43 AM CDT Narrative 01/01/2025 11:10 AM CDT EPIC results best viewed via link to PDF [facility] Department of Pathology [address] [place], [place] [id number] Final Report Note to Patients: This report [...] the details. Patient Name: DENISE JAMES Address: [address] [place] [address] , [place] [address] Gender: M : 1945 (Age: 79) Service: Cardiothoracic Location: [facility] #: [id number] Patient Type: [facility] Taken: 12/31/2024 Received: 01/01/2025 [...] determined by the Surgical Pathology Department at [facility] as part of an ongoing manufacturing quality engineer program and in compliance with federally mandated [...] characteristics determined by the Surgical Pathology Department [facility]. It has not been cleared or approved by the U. S. Food and Drug Administration. REPORT IMAGES AND SCANNED DOCUMENTS, IF INCLUDED, ONLY VIEWABLE IN PDF VERSION OF REPORTe o us Maureen Martinez NP LAB PATHOLOGY ORDERABLES Final Result * POCT glucose (12/31/2024 4:52 PM CDT) Glucose, POC 105 70 - 199 mg/dL POC Performer [id number] ARON BHAT Blood 12/31/2024 4:52 PM CDT 12/31/2024 4:52 PM CDT Angel Gonzalez MD LAB POCT ORDERABLES - DEVICE Final Result ARON [address] Kaylene Valdez Department [place] [address] * POCT glucose (12/31/2024 3:46 PM CDT) Glucose, POC 118 70 - 199 mg/dL POC Performer [id number] [facility] Blood 12/31/2024 3:46 PM CDT 12/31/2024 3:46 PM CDT Angel Gonzalez MD LAB POCT ORDERABLES - DEVICE Final Result Performing Organization Address [facility] Co de Phone Number ARON BHAT [address] Kaylene [facility] [employer] [place], [place] [id number] * POCT glucose (12/31/2024 2:59 PM CDT) Glucose, POC 110 70 - 199 mg/dL POC Performer [id number] CERNER CH Blood 12/31/2024 2:59 PM CDT 12/31/2024 2:59 PM CDT Angel Gonzalez MD LAB POCT ORDERABLES - DEVICE Final Result Performing Organization Address [facility] Co de Phone Number ARON BHAT 54323 Kaylene [facility] [place] [address] * POCT glucose (12/31/2024 1:43 PM CDT) Glucose, POC 118 70 - 199 mg/dL POC Performer [id number] CERNER CH Blood 12/31/2024 1:43 PM CDT 12/31/2024 1:43 PM CDT Angel Gonzalez MD LAB POCT ORDERABLES - DEVICE Final Result Performing Organization Address [facility] Co de Phone Number ARON BHAT [address] Kaylene [facility] [employer] [place], [place] [id number] * POCT glucose (12/31/2024 12:47 PM CDT) Glucose, POC 123 70 - 199 mg/dL POC Performer [id number] CERNER CH Blood 12/31/2024 12:4 7 PM CDT 12/31/2024 12:47 PM CDT Angel Gonzalez MD LAB POCT ORDERABLES - DEVICE Final Result Performing Organization Address [facility] de Phone Number ARON BHAT 76992 Kaylene [facility] [place] [address] * POCT glucose (12/31/2024 11:46 AM CDT) Glucose, POC 131 70 - 199 mg/dL POC Performer [id number] CERNER CH Blood 12/31/2024 11:4 6 AM CDT 12/31/2024 11:46 AM CDT Angel Gonzalez MD LAB POCT ORDERABLES - DEVICE Final Result Performing Organization Address [facility] de Phone Number ARON BHAT 67[address] Kaylene Department [place] [address] * POCT glucose (12/31/2024 10:38 AM CDT) Glucose, POC 136 70 - 199 mg/dL POC Performer [id number] CERNER CH Blood 12/31/2024 10:3 8 AM CDT 12/31/2024 10:38 AM CDT Angel Gonzalez MD LAB POCT ORDERABLES - DEVICE Final Result Performing Organization Address [facility] de Phone Number ARON BHAT [address]1674 Kaylene [facility] [place] [address] * (ABNORMAL) Blood gas, arterial (12/31/2024 10:33 [...] ORDERABLES Final R esult Performing Organization Address [facility] Co de Phone Number ARON BHAT [address] Kaylene [employer] [address] * eGFR (12/31/2024 10:09 AM CDT) eGFR [...] ORDERABLES Final R esult Performing Organization Address [facility]/ZIP Co de Phone Number ARON BHAT [address] Kaylene Department [email or web address] [address] * aPTT (12/31/2024 10:09 AM CDT) aPTT [...] ORDERABLES Final R esult Performing Organization Address [facility]/ZIP Co de Phone Number [facility] [address] Kaylene [place] [address] * (ABNORMAL) Protime-INR (12/31/2024 10:09 AM CDT) Pathologist [facility] PT 14.3(H) 9.7 - 13.0 sec INR [...] AM CDT 12/31/2024 11:00 AM CDT Angel oGnzalez MD LAB BLOOD ORDERABLES Final R esult ARON [address] Kaylene [place] [address] * (ABNORMAL) CBC without differential [...] ORDERABLES Final R esult Performing Organization Address [facility] de Phone Number ARON [address] Kaylene [place] [address] * (ABNORMAL) Hepatic function panel [...] ORDERABLES Jazmín l Result Performing Organization Address [facility] Co de Phone Number [facility] [address] Kaylene Department [email or web address] [address] * (ABNORMAL) Basic metabolic panel (12/31/2024 10:09 [...] affected. Glucose 132 70 - 199 mg/dL [facility] Comment: Interpretive Data Fasting glucose >/= 126 [...] 2022. Calcium 8.3(L) 8.5 - 10.3 mg/dL [facility] Blood 12/31/2024 10:0 9 AM CDT 12/31/2024 10:59 AM CDT Angel Gonzalez MD LAB BLOOD ORDERABLES Final R esult ARON [address] Kaylene Department [place] [address] * POCT glucose (12/31/2024 9:28 AM CDT) Glucose, POC 135 70 - 199 mg/dL POC Performer [id number] [facility] Blood 12/31/2024 9:28 AM CDT 12/31/2024 9:28 AM CDT Angel Gonzalez MD LAB POCT ORDERABLES - DEVICE Final Result Performing Organization Address [facility]/ZIP Co de Phone Number ARON BHAT [address] Kaylene [facility] [place] [address] * (ABNORMAL) Blood gas, arterial (12/31/2024 9:24 [...] ORDERABLES Final R esult Performing Organization Address [facility]/ZIP Co de Phone Number ARON BHAT 2020[address] Kaylene Valdez [facility] [place] [address] * POCT glucose (12/31/2024 8:26 AM CDT) Glucose, POC 97 70 - 199 mg/dL POC Performer [id number] [facility] Blood 12/31/2024 8:26 AM CDT 12/31/2024 8:26 AM CDT Angel Gonzalez MD LAB POCT ORDERABLES - DEVICE Final Result Performing Organization Address [facility]/ZIP Co de Phone Number ARON BHAT [address] Kaylene [facility] [place] [address] * ECG 12 lead (12/31/2024 7:20 AM CDT) 12/31/2024 7:20 AM CDT Narrative [facility] - 12/31/2024 4:48 PM CDT Vent Rate: 80 bpm RR Interval: 743 msec CO Interval: 252 msec QRS Duration: 82 msec QT Interval: 399 msec QTC Interval: 435 msec P-R-T Dickens: 84 - 0 - 27 degrees IMPRESSION: SINUS RHYTHM WITH FIRST DEGREE AV BLOCK LOW QRS VOLTAGE IN EXTREMITY LEADS [QRS DEFLECTION < 0.5 mV IN LIMB LEADS] NONSPECIFIC ST \T\ T-WAVE ABNORMALITY ABNORMAL ECG NO CHANGE FROM PREVIOUS TRACING NOTED Electronically Signed By: Harris Caro MD us Angel Gonzalez MD ECG ORDERABLES Final Result [facility] * Critical Care (12/31/2024 7:00 AM CDT) Gayathri Rangel MD - 12/31/2024 7:00 AM CDT Gayathri Braga MD 01/03/2025 6:24 PM Critical Care Performed by: Maureen Martinez NP Authorized by: Maureen Martinez NP CRITICAL CARE: Team: ELIAS Shift: AM Level of Billing: Critical Care [...] plan with the ICU team and other medical/system sales consultant staff, making frequent assessments and decisions [...] 107 70 - 199 mg/dL POC Performer [id number] [facility] Blood 12/31/2024 6:35 AM CDT 12/31/2024 6:35 AM CDT Angel Gonzalez MD LAB POCT ORDERABLES - DEVICE Final Result ARON BHAT [address] Kaylene Valdez Department [place] [address] * XR Chest 1 View - Portable [...] in good position. The tip of the Houston-Maryanne catheter is in the undivided main pulmonary [...] in good position. The tip of the [place]-Maryanne catheter is in the undivided main pulmonary artery. Bilateral thoracostomy tubes and mediastinal drain in place. IMPRESSION: Findings as described above. Electronically signed by: Sangeeta Harmon M.D. Maureen Martinez CALL SPECIALIST IMG XR PROCEDURES Final Result * POCT glucose (12/31/2024 5:31 AM CDT) Glucose, POC 123 70 - 199 mg/dL POC Performer [id number] [facility] Blood 12/31/2024 5:31 AM CDT 12/31/2024 5:31 AM CDT Angel Gonzalez MD LAB POCT ORDERABLES - DEVICE Final Result Performing Organization Address [facility]/ZIP Co de Phone Number ARON BHAT [address] Kaylene Department [place] [address] * Calcium, ionized, whole blood (12/31/2024 5:19 AM CDT) Ca, ionized, bld 4.69 4.50 - 5.10 mg/dL Blood 12/31/2024 5:19 AM CDT 12/31/2024 5:47 AM CDT Angel Gonzalez MD LAB BLOOD ORDERABLES Final R esult Performing Organization Address [facility] Co de Phone Number ARON BHAT [address] Kaylene Department of [employer] [place], [place] [id number] * (ABNORMAL) Blood gas, arterial (12/31/2024 5:19 AM CDT) pH, Art 7.46(H) 7.35 - 7.45 PCO2, Arterial 37 35 - 45 mmHg [facility] PO2, Arterial 91 83 - 108 mmHg [facility] HCO3 Art (Calculated) 27 20 - 30 mmol/L CERNER CH BE, art 2 mmol/L [facility] Comment: Interpretive Data No Reference Range Established Current Interpretive Data was last revised on 2017 O2 Sat Art (Measured) 97(H) 90 - 95 % [facility] Blood 12/31/2024 5:19 AM CDT 12/31/2024 5:35 AM CDT us Angel Gonzalez MD LAB BLOOD ORDERABLES Final R esult Performing Organization Address [facility] Co de Phone Number ARON BHAT [address] Kaylene Valdez Department [place] [address] * POCT glucose (12/31/2024 4:25 AM CDT) Glucose, POC 122 70 - 199 mg/dL POC Performer [id number] ARON Blood 12/31/2024 4:25 AM CDT 12/31/2024 4:25 AM CDT us Angel Gonzalez MD LAB POCT ORDERABLES - DEVICE Final Result Performing Organization Address [facility] Co de Phone Number LETIBERTO BHAT [address] Kaylene Valdez Department [place] [address] * Oxyhemoglobin, central venous (12/31/2024 4:04 AM CDT) Oxyhemoglobin, CV 62.5 % Comment: Interpretive Data No reference range established. Current interpretive data was last revised 2019. Blood 12/31/2024 4:04 AM CDT 12/31/2024 4:29 AM CDT us Angel Gonzalez MD LAB BLOOD ORDERABLES Final R esult Performing Organization Address [facility] Co de Phone Number ARON BHAT [address] Kaylene Valdez [facility] [employer] [place], [place] [address] * Transfuse RBC (12/31/2024 3:57 AM CDT) Blood us Angel Gonzalez MD BLOOD TRANSFUSION ORDERABLES Final Result Performing Organization Address [facility] Co de Phone Number LETIBERTO BHAT [address] Kaylene Valdez Department [place] [address] * eGFR (12/31/2024 3:46 AM CDT) eGFR [...] MD LAB BLOOD ORDERABLES Final R esult [facility] [address] Kaylene Department [place] [address] * (ABNORMAL) Differential, auto (12/31/2024 3:46 AM CDT) Neutrophil abs 6.32 1.50 - 6.50 K/cumm Imm gran abs 0.03 0.00 - 0.10 K/cumm [facility] Lymphocyte abs 0.25(L) 0.80 - 3.30 K/cumm [facility] Monocyte abs 0.57 0.20 - 0.80 K/cumm [facility] Eosinophil abs 0.00 0.00 - 0.50 K/cumm [facility] Basophil abs 0.00 0.00 - 0.10 K/cumm [facility] Neutrophil pct 88.2 % CERBERTO Comment: Interpretive [...] LAB BLOOD ORDERABLES Final R esult ARON [address] Kaylene [facility] [place] [address] * Thyroid Function [place] (12/31/2024 3:46 AM CDT) TSH 0.92 0.30 - 4.20 mcIUnit/mL Blood 12/31/2024 3:46 AM CDT 12/31/2024 3:54 AM CDT Maureen Martinez CALL SPECIALIST LAB BLOOD ORDERABLES Fin al Result Performing Organization Address [facility] Co de Phone Number ARON BHAT [address] [email or web address] [address] * (ABNORMAL) CBC with auto [...] BLOOD ORDERABLES Final R esult ARON BHAT [address] Department [place] [address] * (ABNORMAL) Vitamin D 25 hydroxy (12/31/2024 3:46 AM CDT) Vitamin D 25-OH 17(L) 30 - 80 ng/mL Blood 12/31/2024 3:46 AM CDT 12/31/2024 3:58 AM CDT Maureen Martinez CALL SPECIALIST LAB BLOOD ORDERABLES Fin al Result Performing Organization Address [facility] Co de Phone Number ARON BHAT [address] Kaylene Valdez [facility] [place] [address] * (ABNORMAL) Protime-INR (12/31/2024 3:46 AM CDT) [...] CDT 12/31/2024 3:54 AM CDT Maureen Martinez CALL SPECIALIST LAB BLOOD ORDERABLES Fin al Result Performing Organization Address [facility] de Phone Number ARON BHAT [address]957 Kaylene Valdez [facility] [place] [address] * Fibrinogen (12/31/2024 3:46 AM CDT) Fibrinogen 301 170 - 400 mg/dL Blood 12/31/2024 3:46 AM CDT 12/31/2024 3:54 AM CDT Maureen Martinez CALL SPECIALIST LAB BLOOD ORDERABLES Fin al Result Performing Organization Address [facility] Co de Phone Number ARON [address] Kaylene Valdez [facility] [place] [address] * Phosphorus (12/31/2024 3:46 AM CDT) Phosphorus, pl 3.2 2.3 - 4.5 mg/dL Blood 12/31/2024 3:46 AM CDT 12/31/2024 3:54 AM CDT Maureen Martinez CALL SPECIALIST LAB BLOOD ORDERABLES Fin al Result LETIBERTO BHAT [address] Kaylene [employer] [place], [place] [address] * Magnesium (12/31/2024 3:46 AM CDT) Pathologist [facility] Magnesium 2.3 1.4 - 2.5 mg/dL Blood 12/31/2024 3:46 AM CDT 12/31/2024 3:54 AM CDT Angel Gonzalez MD LAB BLOOD ORDERABLES Final R esult Performing Organization Address [facility] Co de Phone Number LETIBERTO HBAT [address] Kaylene [facility] [place] [address] * Hemoglobin A1c (12/31/2024 3:46 AM CDT) Pathologist [facility] Hgb A1C 5.4 4.0 - 5.6 % [...] and children were not included. (Diabetes Care 31:[id number], 2008). The eAG is not equivalent to a fasting glucose. Blood 12/31/2024 3:46 AM CDT 12/31/2024 3:54 AM CDT Maureen Martinez CALL SPECIALIST LAB BLOOD ORDERABLES Uriel jamil Result - Final Performing Organization Address [facility] Co de Phone Number LETIBERTO BHAT [address] Kaylene [facility] [employer] [place], [place] [address] * (ABNORMAL) Lipid panel (12/31/2024 3:46 AM [...] LAB BLOOD ORDERABLES Fin al Result ARON [address] Kaylene Valdez Department [place] [address] * (ABNORMAL) Basic metabolic panel (12/31/2024 3:46 AM CDT) Sodium 151(H) 135 - 145 mmol/L Potassium, pl 3.8 3.3 - 4.9 mmol/L CERNER CH Chloride 116(H) 97 - 110 mmol/L CERNER CH CO2 26 22 - 32 mmol/L CERNER CH Anion gap 9 2 - 15 mmol/L CERNER CH BUN 20 6 - 25 mg/dL [facility] Creatinine 1.11 0.80 - 1.30 mg/dL [facility] Comment:Icteric sample, test results may be affected. Glucose 123 70 - 199 mg/dL [facility] Comment: Interpretive Data Fasting glucose >/= 126 [...] 2022. Calcium 8.6 8.5 - 10.3 mg/dL [facility] Blood 12/31/2024 3:46 AM CDT 12/31/2024 3:54 AM CDT us Angel Gonzalez MD LAB BLOOD ORDERABLES Final R esult ARON BHAT [address] Kaylene [place] [address] * POCT glucose (12/31/2024 3:24 AM CDT) Glucose, POC 119 70 - 199 mg/dL POC Performer [id number] [facility] Blood 12/31/2024 3:24 AM CDT 12/31/2024 3:24 AM CDT us Angel Gonzalez MD LAB POCT ORDERABLES - DEVICE Final Result ARON BHAT [address] Kaylene [place] [address] * POCT glucose (12/31/2024 2:19 AM CDT) Glucose, POC 141 70 - 199 mg/dL POC Performer [id number] ARON Blood 12/31/2024 2:19 AM CDT 12/31/2024 2:19 AM CDT Angel Gonzalez MD LAB POCT ORDERABLES - DEVICE Final Result Performing Organization Address [facility] Phone Number ARON BHAT [address] Maurice [facility] [place] [address] * Transfuse plasma Standard plasma (12/31/2024 1:27 AM CDT) Blood Angel Gonzalez MD BLOOD TRANSFUSION ORDERABLES Final Result Performing Organization Address [facility] Phone Number ARON BHAT [address] Kaylene [facility] [place] [address] * aPTT (12/31/2024 1:16 AM CDT) aPTT [...] ORDERABLES Final R esult Performing Organization Address [facility] de Phone Number ARON BHAT [address]367 Kaylene [facility] [employer] [place], [place] [id number] * (ABNORMAL) Protime-INR (12/31/2024 1:16 AM CDT) [...] ORDERABLES Final R esult Performing Organization Address [facility] Co de Phone Number ARON BHAT [address] Kaylene [facility] [email or web address] [address] * Fibrinogen (12/31/2024 1:16 AM CDT) Fibrinogen 273 170 - 400 mg/dL Blood 12/31/2024 1:16 AM CDT 12/31/2024 1:29 AM CDT Angel Gonzalez MD LAB BLOOD ORDERABLES Final R esult Performing Organization Address [facility] Co de Phone Number LETIBERTO BHAT [address] Kaylene [place] [address] * POCT glucose (12/31/2024 1:15 AM CDT) Glucose, POC 106 70 - 199 mg/dL POC Performer [id number] ARON Blood 12/31/2024 1:15 AM CDT 12/31/2024 1:15 AM CDT Angel Gonzalez MD LAB POCT ORDERABLES - DEVICE Final Result Performing Organization Address [facility] Co de Phone Number LETIBERTO BHAT [address] Kaylene [facility] [place] [address] * Prepare RBC (12/31/2024 1:13 AM CDT) Product code [id number] [facility] Unit Number [id number] CERNER Product Blood Type BNEG [facility] Dispense Status PRESUMED TRANSFUSED CERNER CH Product code [id number] CERNER CH Unit Number [id number] CERNER CH Product Blood Type BNEG [facility] Dispense Status RETURNED CERNER CH Product code [id number] Unit Number [id number] CERNER CH Product Blood Type BNEG [facility]ER CH Dispense Status RETURNED CERNER CH Product code [id number] CERNER CH Unit Number [id number] CERNER CH Product Blood Type BNEG [facility]ERNER CH Dispense Status PRESUMED TRANSFUSED CERNER CH Product code [id number] CERNER CH Unit Number [id number] CERNER CH Product Blood Type BNEG CERNER CH Dispense Status RETURNED CERNER CH Blood 12/31/2024 1:13 AM CDT 12/31/2024 1:14 AM CDT Angel Gonzalez MD BLOOD BANK PRODUCT ORDERABLE S Final Result Performing Organization Address [facility] Co de Phone Number ARON BHAT [address] Kaylene Valdez [facility] [place] [address] * Transfuse platelets (12/31/2024 12:07 AM CDT) Blood us Angel Gonzalez MD BLOOD TRANSFUSION ORDERABLES Final Result Performing Organization Address [facility] Co de Phone Number ARON BHAT [address] Kaylene Valdez [facility] [place] [address] * POCT glucose (12/30/2024 11:59 PM CDT) [facility] Signature Glucose, POC 159 70 - 199 mg/dL POC Performer [id number] CERNER CH Blood 12/30/2024 11:5 9 PM CDT 12/30/2024 11:59 PM CDT Angel Gonzalez MD LAB POCT ORDERABLES - DEVICE Final Result Performing Organization Address [facility] Co de Phone Number ARON BHAT 25257 Kaylene Valdez [facility] [place] [address] * Potassium, whole blood (12/30/2024 [...] MD LAB BLOOD ORDERABLES Final R esult [facility] [address] Kaylene Department [place] [address] * (ABNORMAL) CBC without differential (12/30/2024 11:54 PM CDT) Pathologist [facility] WBC 6.74 3.80 - 9.90 K/cumm Hgb 8.4(L) 13.0 - 17.5 g/dL [facility] Hct 25.0(L) 38.9 - 50.3 % [facility] Plt 118(L) 150 - 400 K/cumm [facility] MPV 10.1 9.1 - 12.3 fL [facility] RBC 2.82(L) 4.30 - 5.80 M/cumm [facility] MCV 88.7 81.3 - 96.4 fL [facility] MCH 29.8 27.1 - 33.3 pg [facility] MCHC 33.6 32.3 - 35.7 g/dL [facility] RDW CV 13.8 11.1 - 14.9 % [facility] RDW SD 44.5 35.7 - 48.1 fL [facility] NRBC abs 0.00 0.00 - 0.01 K/cumm [facility] CH Blood 12/30/2024 11:5 4 PM CDT 12/31/2024 12:06 AM CDT us Angel Gonzalez MD LAB BLOOD ORDERABLES Final R esult Performing Organization Address [facility] Co de Phone Number ARON BHAT [address] Maurice [facility] [place] [address] * (ABNORMAL) Blood gas, arterial (12/30/2024 11:54 [...] ORDERABLES Final R esult Performing Organization Address [facility] Co de Phone Number ARON BHAT [address] Kaylene [facility] [place] [address] * Transfuse plasma Standard plasma (12/30/2024 11:02 PM CDT) Blood us Angel Gonzalez MD BLOOD TRANSFUSION ORDERABLES Edited Result - Final Performing Organization Address [facility] Co de Phone Number ARON BHAT [address] Kaylene [facility] [place] [address] * POCT glucose (12/30/2024 10:57 PM CDT) Glucose, POC 174 70 - 199 mg/dL POC Performer [id number] CERNER CH Blood 12/30/2024 10:5 7 PM CDT 12/30/2024 10:57 PM CDT us Angel Gonzalez MD LAB POCT ORDERABLES - DEVICE Final Result Performing Organization Address [facility] Co de Phone Number ARON BHAT [address] Kaylene [facility] [employer] [place], [place] [address] * Transfuse platelets (12/30/2024 10:16 PM CDT) Blood Angel Gonzalez MD BLOOD TRANSFUSION ORDERABLES Final Result Performing Organization Address [facility] Co de Phone Number ARON BHAT [address] Kaylene Department [place] [address] * POCT glucose (12/30/2024 10:01 PM CDT) Glucose, POC 174 70 - 199 mg/dL POC Performer [id number] [facility] Blood 12/30/2024 10:0 1 PM CDT 12/30/2024 10:01 PM CDT Angel Gonzalez MD LAB POCT ORDERABLES - DEVICE Final Result Performing Organization Address [facility] Co de Phone Number ARON BHAT [address]367 Kaylene [facility] [place] [address] * POCT glucose (12/30/2024 8:58 PM CDT) Glucose, POC 185 70 - 199 mg/dL POC Performer [id number] [facility] Blood 12/30/2024 8:58 PM CDT 12/30/2024 8:58 PM CDT Angel Gonzalez MD LAB POCT ORDERABLES - DEVICE Final Result Performing Organization Address [facility] Co de Phone Number ARON BHAT [address] Kyalene [facility] [place] [address] * Calcium, ionized, whole blood (12/30/2024 8:51 PM CDT) Ca, ionized, bld 4.99 4.50 - 5.10 mg/dL Blood 12/30/2024 8:51 PM CDT 12/30/2024 9:07 PM CDT Angel Gonzalez MD LAB BLOOD ORDERABLES Final R esult Performing Organization Address [facility]/ZIP Co de Phone Number ARON BHAT [address] Maurice [place] [address] * eGFR (12/30/2024 8:51 PM [...] BLOOD ORDERABLES Final R esult ARON BHAT [address] Kaylene [place] [address] * aPTT (12/30/2024 8:51 PM [...] ORDERABLES Final R esult Performing Organization Address [facility] Co de Phone Number ARON BHAT [address] Kaylene [facility] [place] [address] * Fibrinogen (12/30/2024 8:51 PM CDT) Pathologist [facility] Fibrinogen 234 170 - 400 mg/dL Blood 12/30/2024 8:51 PM CDT 12/30/2024 9:04 PM CDT Angel Gonzalez MD LAB BLOOD ORDERABLES Final R esult Performing Organization Address [facility] de Phone Number ARON BHAT [address] Kaylene [employer] [address] * (ABNORMAL) CBC without differential (12/30/2024 8:51 PM CDT) Pathologist [facility] WBC 6.61 3.80 - 9.90 K/cumm Hgb 9.2(L) 13.0 - 17.5 g/dL [facility] Hct 27.4(L) 38.9 - 50.3 % [facility] Plt 92(L) 150 - 400 K/cumm [facility] MPV 9.7 9.1 - 12.3 fL [facility] RBC 3.04(L) 4.30 - 5.80 M/cumm [facility] MCV 90.1 81.3 - 96.4 fL [facility] MCH 30.3 27.1 - 33.3 pg [facility] MCHC 33.6 32.3 - 35.7 g/dL [facility] RDW CV 13.8 11.1 - 14.9 % [facility] RDW SD 44.6 35.7 - 48.1 fL [facility] NRBC abs 0.00 0.00 - 0.01 K/cumm CERNER CH Blood 12/30/2024 8:51 PM CDT 12/30/2024 9:04 PM CDT Angel Gonzalez MD LAB BLOOD ORDERABLES Final R esult Performing Organization Address [facility] de Phone Number [facility] [address] Kaylene Department [place] [address] * (ABNORMAL) Blood gas, arterial (12/30/2024 8:51 [...] ORDERABLES Final R esult Performing Organization Address [facility] de Phone Number [facility] [address] Kaylene [facility] [place] [address] * (ABNORMAL) Basic metabolic panel (12/30/2024 8:51 [...] ORDERABLES Final R esult Performing Organization Address [facility] Co de Phone Number LETIBERTO [address] Kaylene Department [place] [address] * Transfuse RBC (12/30/2024 8:31 PM CDT) Blood Angel Gonzalez MD BLOOD TRANSFUSION ORDERABLES Final Result Performing Organization Address [facility] Co de Phone Number ARON [address] Kaylene Department [place] [address] * Transfuse RBC (12/30/2024 7:59 PM CDT) Blood Angel Gonzalez MD BLOOD TRANSFUSION ORDERABLES Final Result Performing Organization Address [facility] Co de Phone Number [facility] [address] Kaylene [facility] [place] [address] * Transfuse platelets (12/30/2024 7:58 PM CDT) Blood Angel Gonzalez MD BLOOD TRANSFUSION ORDERABLES Final Result Performing Organization Address City/[facility] Co de Phone Number ARON BHAT [address] Maurice [facility] [place] [address] * Transfuse platelets (12/30/2024 7:57 PM CDT) Blood Angel Gonzalez MD BLOOD TRANSFUSION ORDERABLES Final Result Performing Organization Address [facility] Co de Phone Number ARON BHAT [address] Kaylene [facility] [place] [address] * POCT glucose (12/30/2024 7:52 PM CDT) Glucose, POC 161 70 - 199 mg/dL POC Performer [id number] CERNER CH Blood 12/30/2024 7:52 PM CDT 12/30/2024 7:52 PM CDT Angel Gonzalez MD LAB POCT ORDERABLES - DEVICE Final Result Performing Organization Address [facility] de Phone Number ARON BHAT [address] Maurice [facility] [place] [address] * Prepare RBC: 4 Units (12/30/2024 7:23 PM CDT) Product code [id number] Unit Number [id number] 7-C CERNER CH Product Blood Type BNEG CERNER CH Dispense Status RETURNED CERNER CH Product code [id number] CERNER CH Unit Number [id number] [id number] CERNER CH Product Blood Type BNEG CERNER CH Dispense Status RETURNED CERNER CH Blood 12/30/2024 7:23 PM CDT Narrative CERNER CH - 12/31/2024 4:15 AM CDT Are special requirements needed? (All products are leukoreduced and CMV- safe)- >No Date required:-20241230 LRRBC # of [id number] Reasons:-Hemorrhagic shock/Life-threatening bleeding} Angel Gonzalez MD BLOOD BANK PRODUCT ORDERABLE S Final Result ARON [address] [facility] Department [place] [address] * Critical Care (12/30/2024 7:19 PM CDT) [...] plan with the ICU team and other medical/system sales consultant staff, making frequent assessments and decisions [...] 3 Units (12/30/2024 7:04 PM CDT) Pathologist [facility] Product code [id number] CERNER CH Unit Number [id number] CERNER CH Product Blood Type ANEG CERNER CH Dispense Status PRESUMED TRANSFUSED CERNER CH Product code U7539N03 Unit Number [id number] CERNER CH Product Blood Type BPOS CERNER CH Dispense Status PRESUMED TRANSFUSED CERNER CH Product code [id number] CERNER CH Unit Number [id number] CERNER CH Product Blood Type OPOS CERNER CH Dispense Status PRESUMED TRANSFUSED CERNER CH Blood Venous blood specimen / Unknown 12/30/2024 7:04 PM CDT Narrative CERNER CH - 01/03/2025 10:16 PM CDT Are special requirements needed? (all products are leukoreduced)->No Date required:-20241230 PLT # of Units:-3-Units Reasons:-Major active bleeding} Angel Gonzalez MD BLOOD BANK PRODUCT ORDERABLE S Final Result Performing Organization Address [facility] Co de Phone Number ARON BHAT [address] Kaylene Valdez [facility] [place] [address] * POCT glucose (12/30/2024 6:42 PM CDT) Glucose, POC 152 70 - 199 mg/dL POC Performer [id number] CERNER CH Blood 12/30/2024 6:42 PM CDT 12/30/2024 6:42 PM CDT Angel Gonzalez MD LAB POCT ORDERABLES - DEVICE Final Result Performing Organization Address [facility] de Phone Number ARON BHAT [address] Kaylene Valdez [facility] [place] [address] * Prepare platelets (12/30/2024 6:29 PM CDT) Product code [id number] CERNER CH Unit Number [id number] CERNER CH Product Blood Type APOS CERNER CH Dispense Status PRESUMED TRANSFUSED CERNER CH Product code [id number] Unit Number [id number] CERNER CH Product Blood Type APOS CERNER CH Dispense Status PRESUMED TRANSFUSED CERNER CH Blood 12/30/2024 6:29 PM CDT 12/30/2024 6:38 PM CDT Conner Kurtz MD BLOOD BANK PRODUCT OR DERABLES Final Result Performing Organization Address [facility] Co de Phone Number ARON BHAT [address] Kaylene Valdez [facility] [place] [address] * Prepare plasma: 3 Units Standard plasma (12/30/2024 6:28 PM CDT) [facility] Product code [id number] Unit Number [id number] CERNER CH Product Blood Type BPOS CERNER CH Dispense Status PRESUMED TRANSFUSED CERNER CH Product code [id number] CERNER CH Unit Number [id number] R CERNER CH Product Blood Type BPOS CERNER CH Dispense Status PRESUMED TRANSFUSED CERNER CH Product code [id number] CERNER CH Unit Number [id number] CERNER CH Product Blood Type BPOS [...] ORDERABLE S Final Result Performing Organization Address [facility] Co de Phone Number ARON BHAT [address] Kaylene Valdez [facility] [place] [address] * Lactate (12/30/2024 6:25 PM CDT) [facility] Lactate 1.2 0.7 - 2.0 mmol/L Blood 12/30/2024 6:25 PM CDT 12/30/2024 6:48 PM CDT Angel Gonzalez MD LAB BLOOD ORDERABLES Final R esult Performing Organization Address City/[facility]/ZIP Co de Phone Number ARON BHAT [address] Kaylene Valdez Department [place] [address] * (ABNORMAL) Protime-INR (12/30/2024 6:25 PM CDT) [facility] PT 17.1(H) 9.7 - 13.0 sec INR 1.57(H) 0.90 - 1.20 [facility] Comment: Interpretive data Oral anticoagulant therapeutic ranges: Venous thromboembolism prophylaxis or treatment: 2.0-3.0 CARDIOLOGY Standard range: 2.0-3.0 High-intensity range: 2.5-3.5 Refer to indication-specific guidelines for appropriate target ranges for prosthetic heart valve replacement. Current interpretive data was last revised on 2019. Blood 12/30/2024 6:25 PM CDT 12/30/2024 6:48 PM CDT Maureen Martinez CALL SPECIALIST LAB BLOOD ORDERABLES Fin al Result Performing Organization Address [facility] de Phone Number [facility] [address] Kaylene [facility] [place] [address] * Fibrinogen (12/30/2024 6:25 PM CDT) Pathologist [facility] Fibrinogen 201 170 - 400 mg/dL Blood 12/30/2024 6:25 PM CDT 12/30/2024 6:48 PM CDT Maureen Martinez CALL SPECIALIST LAB BLOOD ORDERABLES Fin al Result Performing Organization Address [facility] Phone Number [facility] [address] Kaylene [facility] [place] [address] * (ABNORMAL) CBC without differential (12/30/2024 6:25 PM CDT) Pathologist [facility] WBC 5.26 3.80 - 9.90 K/cumm Hgb 7.3(L) 13.0 - 17.5 g/dL [facility] Hct 21.1(L) 38.9 - 50.3 % [facility] Plt 64(L) 150 - 400 K/cumm [facility] MPV 10.7 9.1 - 12.3 fL [facility] RBC 2.29(L) 4.30 - 5.80 M/cumm [facility] MCV 92.1 81.3 - 96.4 fL CERNER [...] ORDERABLES Final R esult Performing Organization Address [facility] Co de Phone Number ARON BHAT [address] Kaylene Valdez Department [email or web address] [place], [place] [id number] * Type and screen (12/30/2024 6:25 PM CDT) Colton, indirect Negative ABO Rh B Negative CERNER CH Blood 12/30/2024 6:25 PM CDT 12/30/2024 7:12 PM CDT Narrative [facility] - 12/30/2024 7:57 PM CDT Has the patient had Daratumumab or Isatuximab in the past 6 months?->Unknown Angel Gonzalez MD LAB BLOOD BANK TEST ORDERABL ES Final Result Performing Organization Address [facility] Co de Phone Number ARON BHAT [address] aKylene Valdez Department [email or web address] [place], [place] [id number] * (ABNORMAL) Blood gas, arterial (12/30/2024 6:25 [...] Art (Measured) 99(H) 90 - 95 % [facility] Blood 12/30/2024 6:25 PM CDT 12/30/2024 6:48 PM CDT Angel Gonzalez MD LAB BLOOD ORDERABLES Final R esult Performing Organization Address [facility] Co de Phone Number ARON BHAT [address] Kaylene [facility] [place] [address] * Transfuse cryoprecipitate (pooled units) (12/30/2024 6:22 PM CDT) Blood Angel Gonzalez MD BLOOD TRANSFUSION ORDERABLES Final Result Performing Organization Address [facility] de Phone Number ARON BHAT [address] Kaylene [facility] [place] [address] * Prepare RBC: 1 Units (12/30/2024 6:20 PM CDT) [facility] Signature Product code [id number] Unit Number [id number] 7-K [facility] Product Blood Type BNEG [facility] Dispense Status RETURNED [facility] Blood 12/30/2024 6:20 PM CDT Narrative [facility] - 12/31/2024 1:13 AM CDT Are special requirements needed? (All products are leukoreduced and CMV- safe)- >No Date required:-20241230 LRRBC # of [id number] Reasons:-Hemorrhagic shock/Life-threatening bleeding} Angel Gonzalez MD BLOOD BANK PRODUCT ORDERABLE S Final Result Performing Organization Address [facility] Co de Phone Number LETIBERTO BHAT [address] Kaylene [facility] [place] [address] * Transfuse cryoprecipitate (pooled units) (12/30/2024 5:46 PM CDT) Blood Angel Gonzalez MD BLOOD TRANSFUSION ORDERABLES Final Result Performing Organization Address [facility] de Phone Number ARON BHAT [address] Kaylene [facility] [place] [address] * POCT glucose (12/30/2024 5:40 PM CDT) [facility] Glucose, POC 149 70 - 199 mg/dL POC Performer [id number] CERNER CH Blood 12/30/2024 5:40 PM CDT 12/30/2024 5:40 PM CDT Angel Gonzalez MD LAB POCT ORDERABLES - DEVICE Final Result Performing Organization Address [facility] de Phone Number LETIBERTO BHAT [address] Kaylene [facility] [place] [address] * Transfuse platelets (12/30/2024 5:30 PM CDT) Blood Angel Gonzalez MD BLOOD TRANSFUSION ORDERABLES Final Result Performing Organization Address [facility] de Phone Number ARON HOME [address] Kaylene [facility] [place] [address] * Prepare RBC: 1 Units (12/30/2024 5:25 PM CDT) [facility] Product code [id number] Unit Number [id number] 5-O CERNER Product Blood Type BNEG CERNER Dispense Status RETURNED CERNER Blood 12/30/2024 5:25 PM CDT Narrative [facility] - 12/31/2024 4:15 AM CDT Are special requirements needed? (All products are leukoreduced and CMV- safe)- >No Date required:-20241230 LRRBC # of [id number] Reasons:-Hemorrhagic shock/Life-threatening bleeding} Angel Gonzalez MD BLOOD BANK PRODUCT ORDERABLE S Final Result Performing Organization Address [facility] de Phone Number LETIBERTO BHAT [address] Kaylene [facility] [place] [address] * Transfuse platelets (12/30/2024 5:16 PM CDT) Blood us Angel Gonzalez MD BLOOD TRANSF[place] [address] Maurice Department [place] [address] * Critical Care (12/30/2024 4:59 PM CDT) [...] plan with the ICU team and other medical/system sales consultant staff, making frequent assessments and decisions [...] Units (12/30/2024 4:47 PM CDT) Product code [id number] Unit Number [id number] CERNER CH Product Blood Type OPOS CERNER CH Dispense Status PRESUMED TRANSFUSED CERNER CH Product code [id number] CERNER CH Unit Number [id number] CERNER CH Product Blood Type APOS CERNER CH Dispense Status PRESUMED TRANSFUSED CERNER CH Blood Venous blood specimen / Unknown 12/30/2024 4:47 PM CDT Narrative CERNER CH - 12/30/2024 10:15 PM CDT Cryo # of [id number] Reasons:-Dysfibrinogenemia WITH bleeding} us Angel Gonzalez MD BLOOD BANK PRODUCT ORDERABLE S Final Result Performing Organization Address [facility] Co de Phone Number ARON BHAT [address] Kaylene Valdez [facility] [place] [address] * Prepare platelets: 2 Units (12/30/2024 4:38 PM CDT) Product code [id number] Unit Number [id number] CERNER CH Product Blood Type APOS CERNER CH Dispense Status PRESUMED TRANSFUSED CERNER CH Product code C5659A82 CERNER CH Unit Number [id number] CERNER CH Product Blood Type APOS CERNER CH Dispense Status PRESUMED TRANSFUSED CERNER CH Blood Venous blood specimen / Unknown 12/30/2024 4:38 PM CDT Narrative [facility] CH - 12/30/2024 10:15 PM CDT Are special requirements needed? (all products are leukoreduced)->No Date required:-20241230 PLT # of Units:-2-Units Reasons:-Major active bleeding} Angel Gonzalez MD BLOOD BANK PRODUCT ORDERABLE S Final Result Performing Organization Address [facility] Co de Phone Number ARON Rojo33 Kaylene Valdez [facility] [place] [address] * (ABNORMAL) Calcium, ionized, whole blood (12/30/2024 4:37 PM CDT) Pathologist [facility] Ca, ionized, bld 4.41(L) 4.50 - 5.10 mg/dL Blood 12/30/2024 4:37 PM CDT 12/30/2024 4:42 PM CDT Angel Gonzalez MD LAB BLOOD ORDERABLES Final R esult Performing Organization Address [facility]/ZIP Co de Phone Number ARON BHAT [address] Kaylene [facility] [place] [address] * eGFR (12/30/2024 4:37 PM CDT) eGFR [...] ORDERABLES Final R esult Performing Organization Address [facility] Co de Phone Number ARON HOME [address] Kaylene Valdez [place] [address] * aPTT (12/30/2024 4:37 PM [...] ORDERABLES Final R esult Performing Organization Address [facility]/ZIP Co de Phone Number ARON HOME [address] Kaylene Valdez [place] [address] * (ABNORMAL) Protime-INR (12/30/2024 4:37 PM CDT) PT 19.2(H) 9.7 - 13.0 sec INR 1.76(H) 0.90 - 1.20 [facility] Comment: Interpretive data Oral anticoagulant therapeutic ranges: Venous thromboembolism prophylaxis or treatment: 2.0-3.0 CARDIOLOGY Standard range: 2.0-3.0 High-intensity range: 2.5-3.5 Refer to indication-specific guidelines for appropriate target ranges for prosthetic heart valve replacement. Current interpretive data was last revised on 2019. Blood 12/30/2024 4:37 PM CDT 12/30/2024 4:43 PM CDT us Angel Gonzalez MD LAB BLOOD ORDERABLES Final R esult [facility] [address] Kaylene Valdez Department [place] [address] * (ABNORMAL) CBC without differential (12/30/2024 4:37 PM CDT) WBC 4.30 3.80 - 9.90 K/cumm Hgb 9.3(L) 13.0 - 17.5 g/dL [facility] Hct 27.4(L) 38.9 - 50.3 % [facility] Plt 55(L) 150 - 400 K/cumm [facility] MPV 10.3 9.1 - 12.3 fL [facility] RBC 3.07(L) 4.30 - 5.80 M/cumm [facility] MCV 89.3 81.3 - 96.4 fL [facility] MCH 30.3 27.1 - 33.3 pg [facility] MCHC 33.9 32.3 - 35.7 g/dL [facility] RDW CV 12.8 11.1 - 14.9 % [facility] RDW SD 41.3 35.7 - 48.1 fL [facility] NRBC abs 0.00 0.00 - 0.01 K/cumm [facility] Blood 12/30/2024 4:37 PM CDT 12/30/2024 4:43 PM CDT Angel Gonzalez MD LAB BLOOD ORDERABLES Final R esult Performing Organization Address [facility] Co de Phone Number ARON BHAT [address] Kaylene [facility] [place] [address] * Phosphorus (12/30/2024 4:37 PM CDT) Phosphorus, pl 3.1 2.3 - 4.5 mg/dL Blood 12/30/2024 4:37 PM CDT 12/30/2024 5:36 PM CDT Maureen Martinez NP LAB BLOOD ORDERABLES Fin al Result Performing Organization Address [facility] de Phone Number ARON BHAT [address] Kaylene [facility] [place] [address] * Magnesium (12/30/2024 4:37 PM CDT) Magnesium 2.1 1.4 - 2.5 mg/dL Blood 12/30/2024 4:37 PM CDT 12/30/2024 4:43 PM CDT Angel Gonzalez MD LAB BLOOD ORDERABLES Final R esult Performing Organization Address [facility] de Phone Number ARON BHAT [address] Kaylene Department [place] [address] * (ABNORMAL) Blood gas, arterial (12/30/2024 4:37 [...] Art (Measured) 99(H) 90 - 95 % [facility] Blood 12/30/2024 4:37 PM CDT 12/30/2024 4:42 PM CDT Angel Gonzalez MD LAB BLOOD ORDERABLES Final R esult Performing Organization Address City/[facility]/ZIP Co de Phone Number ARON BHAT [address] Kaylene Valdez [place] [address] * (ABNORMAL) Basic metabolic panel (12/30/2024 4:37 PM CDT) Sodium 145 135 - 145 mmol/L Potassium, pl 4.0 3.3 - 4.9 mmol/L CERNER Chloride 114(H) 97 - 110 mmol/L CERNER CH CO2 19(L) 22 - 32 mmol/L [facility] Anion gap 12 2 - 15 mmol/L [facility] BUN 20 6 - 25 mg/dL [facility] Creatinine 0.77(L) 0.80 - 1.30 mg/dL CERNER Glucose 156 70 - 199 mg/dL [facility] Comment: Interpretive Data Fasting glucose >/= 126 [...] 2022. Calcium 7.3(L) 8.5 - 10.3 mg/dL [facility] Blood 12/30/2024 4:37 PM CDT 12/30/2024 4:43 PM CDT Angel Gonzalez MD LAB BLOOD ORDERABLES Final R esult Performing Organization Address [facility]/ZIP Co de Phone Number ARON BHAT [address] Kaylene Valdez [place] [address] * POCT glucose (12/30/2024 4:26 PM CDT) Glucose, POC 109 70 - 199 mg/dL POC Performer [id number] [facility] HOME Blood 12/30/2024 4:26 PM CDT 12/30/2024 4:26 PM CDT us Angel Gonzalez MD LAB POCT ORDERABLES - DEVICE Final Result ARON BHAT [address] Kaylene Department [place] [address] * XR Chest 1 View (12/30/2024 3:40 [...] in place. The tip of a right Houston-Maryanne catheter is in the origin of the [...] in place. The tip of a right Houston-Maryanne catheter is in the origin of the [...] inferior: normal 16- Apical septal: normal 17- Forrest: normal Valves: Aortic Valve: Annulus: normal Leaflet [...] the written comments contained within the report. [facility] ANESTHESIA ORDERABLES Final Result * Transfuse platelets (12/30/2024 3:16 PM CDT) Blood [facility] DO BLOOD TRANSFUSION ORDERABLE S Final Result ARON BHAT [address] Kaylene Valdez Department [place] [address] * (ABNORMAL) POC Blood Gas and [...] POCT ORDERABLES - DEVICE Final Result ARON [address] Maurice Department of Laboratories [place], [place] [id number] * (ABNORMAL) Platelet count (12/30/2024 3:00 PM CDT) Plt 51(L) 150 - 400 K/cumm Blood 12/30/2024 3:00 PM CDT 12/30/2024 3:03 PM CDT Narrative [facility] - 12/30/2024 3:06 PM CDT Please call results to ext. [phone]. Thanks. us Angel Gonzalez MD LAB BLOOD ORDERABLES Final R esult Performing Organization Address [facility] Co de Phone Number ARON BHAT [address] Kaylene Department [place] [address] * Prepare platelets: 1 Units (12/30/2024 2:58 PM CDT) Pathologist [facility] Product code [id number] Unit Number [id number] CERNER CH Product Blood Type OPOS [facility] Dispense Status PRESUMED TRANSFUSED CERNER CH Blood Venous blood specimen / Unknown 12/30/2024 2:58 PM CDT Narrative CERNER CH - 12/30/2024 10:15 PM CDT Are special requirements needed? (all products are leukoreduced)->No Date required:-20241230 PLT # of Units:-1-Units Reasons:-Prior to cardiovascular surgery, plt < 100 K/cumm} Angel Gonzalez MD BLOOD BANK PRODUCT ORDERABLE S Final Result Performing Organization Address [facility] Co de Phone Number ARON BHAT [address] [address] Department [place] [address] * (ABNORMAL) POC Blood Gas and Chemistries, Arterial - (12/30/2024 2:41 PM CDT) Pathologist [facility] Emergency Department pH, Art POC 7.34(L) 7.35 - 7.45 [...] - DEVICE Final Result Performing Organization Address [facility] de Phone Number ARON [address] Kaylene [employer] [address] * (ABNORMAL) Protime-INR (12/30/2024 2:41 PM CDT) PT 21.8(H) 9.7 - 13.0 sec INR 1.99(H) 0.90 - 1.20 [facility] Comment: Interpretive data Oral anticoagulant therapeutic ranges: Venous thromboembolism prophylaxis or treatment: 2.0-3.0 CARDIOLOGY Standard range: 2.0-3.0 High-intensity range: 2.5-3.5 Refer to indication-specific guidelines for appropriate target ranges for prosthetic heart valve replacement. Current interpretive data was last revised on 2019. Blood 12/30/2024 2:41 PM CDT 12/30/2024 2:44 PM CDT Narrative [facility] - 12/30/2024 2:54 PM CDT Please call results to ext. [phone]. Thanks. Angel Gonzalez MD LAB BLOOD ORDERABLES Final R esult Performing Organization Address [facility] Co de Phone Number LETIBERTO [address] Kaylene [facility] [email or web address] [address] * (ABNORMAL) Platelet count (12/30/2024 2:41 PM CDT) Pathologist [facility] Emergency Department Plt 52(L) 150 - 400 K/cumm Blood 12/30/2024 2:41 PM CDT 12/30/2024 2:44 PM CDT Narrative CERNER CH - 12/30/2024 2:47 PM CDT Please call results to ext. [phone]. Thanks. us Angel Gonzalez MD LAB BLOOD ORDERABLES Final R esult Performing Organization Address [facility]/ZIP Co de Phone Number ARON BHAT [address] Kaylene Valdez Department [place] [address] * POC Activated Clotting Time, High Range (12/30/2024 2:38 PM CDT) [facility] ACT 137 87 - 138 sec POC Performer [id number] CERNER CH Blood 12/30/2024 2:38 PM CDT 12/30/2024 2:38 PM CDT Angel Gonzalez MD LAB BLOOD ORDERABLES Final R esult Performing Organization Address [facility] Co de Phone Number ARON BHAT [address] Kaylene Valdez Department [place] [address] * Transfuse plasma (12/30/2024 2:21 PM CDT) Blood Candelaria Resendez DO BLOOD TRANSFUSION ORDERABLE S Final Result Performing Organization Address [facility] Co de Phone Number ARON BHAT [address] Kaylene Valdez Department of [employer] [place], [place] [id number] * (ABNORMAL) POC Blood Gas and Chemistries, Arterial - (12/30/2024 2:20 PM CDT) Pathologist [facility] Emergency Department pH, Art POC 7.32(L) 7.35 - 7.45 [...] ORDERABLES - DEVICE Final Result ARON BHAT [address] Kaylene Valdez [place] [address] * Transfuse platelets (12/30/2024 2:18 PM CDT) Blood us Candelaria Resendez DO BLOOD TRANSFUSION ORDERABLE S Final Result ARON BHAT 57055 Kaylene Valdez Department [email or web address] [address] * POC Activated Clotting Time, High Range (12/30/2024 2:16 PM CDT) ACT 134 87 - 138 sec POC Performer [id number] CERNER CH Blood 12/30/2024 2:16 PM CDT 12/30/2024 2:16 PM CDT Angel Gonzalez MD LAB BLOOD ORDERABLES Final R esult Performing Organization Address City/[facility]/ZIP Co de Phone Number ARON BHAT [address] Kaylene Department [place] [address] * Transfuse plasma (12/30/2024 2:13 PM CDT) Blood [facility] BLOOD TRANSFUSION ORDERABLE S Final Result Performing Organization Address [facility] Co de Phone Number ARON BHAT [address] Kaylene [facility] [place] [address] * Transfuse platelets (12/30/2024 2:12 PM CDT) Blood Candelaria [facility] BLOOD TRANSFUSION ORDERABLE S Final Result Performing Organization Address [facility] Co de Phone Number ARON BHAT [address] Kaylene Department [place] [address] * (ABNORMAL) POC Blood Gas and Chemistries, [...] 90.0 - 95.0 % CERNER CH SO2 (leahta) arterial 99(H) 90 - 95 % CERNER [...] - DEVICE Final Result Performing Organization Address City/[facility]/ZIP Co de Phone Number ARON Rojo33 Kaylene Department [place] [address] * (ABNORMAL) POC Activated Clotting Time, High Range (12/30/2024 1:37 PM CDT) ACT 856(H) 87 - 138 sec POC Performer [id number] CERNER CH Blood 12/30/2024 1:37 PM CDT 12/30/2024 1:37 PM CDT Angel Gonzaelz MD LAB BLOOD ORDERABLES Final R esult Performing Organization Address City/[facility]/ZIP Co de Phone Number ARON BHAT [address] Kaylene Department [place] [address] * (ABNORMAL) Platelet count (12/30/2024 1:11 PM CDT) Plt 79(L) 150 - 400 K/cumm Blood 12/30/2024 1:11 PM CDT 12/30/2024 1:17 PM CDT Narrative CERNER CH - 12/30/2024 1:20 PM CDT Please call results to ext. [phone]. Thanks. Angel Gonzalez MD LAB BLOOD ORDERABLES Final R esult ARON BHAT [address] [address] Department [place] [address] * (ABNORMAL) POC Activated Clotting Time, High Range (12/30/2024 1:03 PM CDT) ACT >1,005(H) 87 - 138 sec POC Performer [id number] CERNER CH Blood 12/30/2024 1:03 PM CDT 12/30/2024 1:03 PM CDT Angel Gonzalez MD LAB BLOOD ORDERABLES Final [facility] Performing Organization Address [facility] Co de Phone Number ARON BHAT [address] [address] Department [place] [address] * (ABNORMAL) POC Blood Gas and Chemistries, [...] - DEVICE Final Result Performing Organization Address [facility] Co de Phone Number ARON BHAT [address] Maurice [facility] [employer] [place], [place] [id number] * (ABNORMAL) POC Activated Clotting Time, High Range (12/30/2024 12:06 PM CDT) ACT >1,005(H) 87 - 138 sec POC Performer [id number] CERNER CH Blood 12/30/2024 12:0 6 PM CDT 12/30/2024 12:06 PM CDT Angel Gonzalez MD LAB BLOOD ORDERABLES Final R esult Performing Organization Address [facility] Co de Phone Number ARON BHAT [address] Kalyene [place] [address] * (ABNORMAL) POC Blood Gas [...] - DEVICE Final Result Performing Organization Address [facility] Co de Phone Number ARON BHAT [address] Kaylene Valdez [place] [address] * (ABNORMAL) POC Activated Clotting Time, High Range (12/30/2024 11:05 AM CDT) ACT >1,005(H) 87 - 138 sec POC Performer [id number] CERNER CH Blood 12/30/2024 11:0 5 AM CDT 12/30/2024 11:05 AM CDT Angel Gonzalez MD LAB BLOOD ORDERABLES Final R esult Performing Organization Address City/[facility]/ZIP Co de Phone Number ARON BHAT 19444 Kaylene Valdez Department [email or web address] [address] * (ABNORMAL) POC Blood Gas [...] LAB POCT ORDERABLES - DEVICE Final Result [address] Department of Laboratories [place] [id number] * Surgical pathology (12/30/2024 10:47 AM CDT) Tissue (Lung BLEB) 12/30/2024 1:43 PM CDT Narrative PATHOLOGY CH - 01/06/2025 9:58 AM CDT EPIC results best viewed via link to PDF [facility] Department of Pathology [address] [place] [address] Note to Patients: This report may [...] Final Report Patient Name: DENISE JAMES Address: [address] [place] [address] , [place], [place] [address] Gender: M : 1945 (Age: 79) Service: Cardiothoracic Location: Hospital #: [id number] Patient Type: [facility] Taken: 12/30/2024 Received: 12/31/2024 [...] diagnosis. Clinical History: Coronary artery disease of [place] heart with stable angina pectoris, unspecified vessel [...] determined by the Surgical Pathology Department at [facility] as part of an ongoing manufacturing quality engineer program and in compliance with federally mandated [...] characteristics determined by the Surgical Pathology Department [facility]. It has not been cleared or approved by the U. S. Food and Drug Administration. Note for decalcified specimens: This assay has not been validated on decalcified tissues. Results should be interpreted with caution given the possibility of false negativity on decalcified specimens Angel Gonzalez MD LAB PATHOLOGY ORDERABLES Fin al Result Performing Organization Address City/[facility]/ZIP Co de Phone Number PATHOLOGY [address] [place] [address] * (ABNORMAL) POC Activated Clotting Time, High Range (12/30/2024 10:38 AM CDT) Pathologist [facility] ACT 820(H) 87 - 138 sec POC Performer [id number] [facility] Blood 12/30/2024 10:3 8 AM CDT 12/30/2024 10:38 AM CDT Angel Gonzalez MD LAB BLOOD ORDERABLES Final R esult Performing Organization Address City/[facility]/ZIP Co de Phone Number [facility] [address] Kaylene Department [place] [address] * (ABNORMAL) POC Blood Gas and Chemistries, Arterial - (12/30/2024 10:02 AM CDT) Pathologist [facility] Emergency Department pH, Art POC 7.36 7.35 - 7.45 [...] LAB POCT ORDERABLES - DEVICE Final Result [facility] [address] Kaylene Valdez Department of Laboratories [place] [phone] * Peripheral IV Catheter (12/30/2024 9:14 AM [...] - DEVICE Final Result Performing Organization Address [facility] Co de Phone Number ARON BHAT [address] Kaylene Valdez [place] [address] * POC Activated Clotting Time, High Range (12/30/2024 8:51 AM CDT) ACT 115 87 - 138 sec POC Performer [id number] CERNER CH Blood 12/30/2024 8:51 AM CDT 12/30/2024 8:51 AM CDT Angel Gonzalez MD LAB BLOOD ORDERABLES Final R esult Performing Organization Address [facility] Co de Phone Number ARON BHAT [address] Kaylene Valdez Department [email or web address] [address] * Check Sample (12/30/2024 7:45 AM CDT) ABO Rh B Negative CH HCLL OTHER 12/30/2024 7:45 AM CDT 12/30/2024 7:50 AM CDT Angel Gonzalez MD LAB BLOOD ORDERABLES Final R esult Performing Organization Address [facility] Co de Phone Number ARON BHAT [address] Kaylene Valdez Department [place] [address] CH * PEDRO Add-On For OR (12/30/2024 7:16 AM CDT) BSA 2.13 m2 CONS SCIMAGE Narrative CONS SCIMAGE - 12/30/2024 7:16 AM CDT Procedure Auto Finalized by Rule: BW CV PEDRO DURING CASE OR Please see the Anesthesiologist's Procedure Note for the results. us Candelaria Resendez DO CV ECHO PROCEDURES Final Re sult Performing Organization Address [facility] de Phone Number CONS SCIMAGE * Potassium, [...] BLOOD ORDERABLES Final Result Performing Organization Address [facility] Co de Phone Number ARON BHAT [address] Kaylene Valdez Department [place] [address] * Prepare platelets: 2 Units (12/30/2024 6:47 AM CDT) Product code T6916E71 CERNER CH Unit Number [id number]- S CERNER CH Product Blood Type OPOS CERNER CH Dispense Status PRESUMED TRANSFUSED CERNER CH Product code X8897W66 Unit Number [id number]- S CERNER CH Product Blood Type OPOS [...] BANK PRODUCT ORDERAB LES Final Result ARON [address] Kaylene Department [place] [address] * Prepare plasma: 2 Units Standard plasma (12/30/2024 6:47 AM CDT) Product code P9101T01 CERNER CH Unit Number [id number]- I CERNER CH Product Blood Type BPOS CERNER CH Dispense Status PRESUMED TRANSFUSED CERNER CH Product code L4029V23 Unit Number [id number] H CERNER CH Product Blood Type ABPO [...] Reasons:-Hold for procedure (specify procedure)} Jessica Kimble CALL SPECIALIST BLOOD BANK PRODUCT ORDERAB LES Final Result Performing Organization Address City/[facility]/ZIP Co de Phone Number ARON BHAT [address] Department of [employer] [place], [place] [address] * Prepare RBC: 4 Units (12/30/2024 6:47 AM CDT) Product code [id number] CERNER CH Unit Number [id number]- Z CERNER CH Product Blood Type BNEG CERNER CH Dispense Status PRESUMED TRANSFUSED CERNER CH Product code A9991I84 CERNER CH Unit Number [id number]- M CERNER CH Product Blood Type BNEG CERNER CH Dispense Status PRESUMED TRANSFUSED CERNER CH Product code D0748K75 Unit Number [id number] R CERNER CH Product Blood Type BNEG CERNER CH Dispense Status PRESUMED TRANSFUSED CERNER CH Product code G8997H76 CERNER CH Unit Number [id number]- I CERNER CH Product Blood Type BNEG CERNER CH Dispense Status RETURNED CERNER CH Blood 12/30/2024 6:47 AM CDT Narrative ARON CH - 01/03/2025 10:15 PM CDT Specify Procedure:->CABG, encompass clamp, MARC wedge Are special requirements needed? (All products are leukoreduced and CMV- safe)- >No Date required:-[id number] LRRBC # of [id number] Reasons:-Hold for procedure (specify procedure)} Jessica Edith Lamin MADDEN BLOOD BANK PRODUCT ORDERAB LES Final Result Performing Organization Address City/[facility]/ZIP Co de Phone Number ARON BHAT [address] Department [place] [address] * Pulmonary Function Test -[facility]; Complete/Full (12/24/2024 10:23 AM CDT) [...] MD LAB BLOOD ORDERABLES Final R esult [facility] [address] Kaylene Valdez Department [place] [address] * (ABNORMAL) Basic metabolic panel (12/18/2024 12:06 PM CDT) Sodium 141 135 - 145 mmol/L Potassium, pl 4.2 3.3 - 4.9 mmol/L [facility] Chloride 102 97 - 110 mmol/L CERNER CH CO2 26 22 - 32 mmol/L CERNER Anion gap 13 2 - 15 mmol/L [facility] BUN 30(H) 6 - 25 mg/dL [facility] Creatinine 1.18 0.80 - 1.30 mg/dL CERNER Glucose 92 70 - 199 mg/dL [facility] Comment: Interpretive Data Fasting glucose >/= 126 [...] 2022. Calcium 10.1 8.5 - 10.3 mg/dL [facility] Blood 12/18/2024 12:0 6 PM CDT 12/18/2024 12:06 PM CDT us Angel Gonzalez MD LAB BLOOD ORDERABLES Final R esult ARON [address] Kaylene Valdez Department [email or web address] [address] * (ABNORMAL) aPTT (12/18/2024 12:05 PM CDT) [...] ORDERABLES Final R esult Performing Organization Address [facility] de Phone Number ARON BHAT [address] Kaylene [employer] [place] [address] * (ABNORMAL) Protime-INR (12/18/2024 12:05 PM CDT) Pathologist [facility] PT 15.0(H) 9.7 - 13.0 sec INR [...] ORDERABLES Final R esult Performing Organization Address [facility] Co de Phone Number ARON [address] Kaylene [employer] [place] [address] * (ABNORMAL) CBC without differential (12/18/2024 12:05 [...] MD LAB BLOOD ORDERABLES Final R esult [facility] [address] Kaylene Valdez Department [place] [address] * (ABNORMAL) Urinalysis reflex to [...] tendency for uric acid stone formation. Source: [facility] [employer] Current Interpretive Data was last revised on [...] O RDERABLES Final Result Performing Organization Address [facility] Co de Phone Number ARON [address] Kaylene Department [place] [address] * Type and screen (12/18/2024 11:54 AM CDT) ABO Rh B Negative [place], indirect Negative CERNER CH Blood 12/18/2024 11:5 4 AM CDT 12/18/2024 12:10 PM CDT Narrative [facility] - 12/18/2024 12:59 PM CDT Has the patient had Daratumumab or Isatuximab in the past 6 months?->Unknown Angel Gonzalez MD LAB BLOOD BANK TEST ORDERABL ES Final Result Performing Organization Address [facility] Co de Phone Number ARON [address] [address] Department [place] [address] * ECG 12 lead (12/18/2024 11:49 AM CDT) 12/18/2024 11:[address] [facility] - 12/18/2024 7:42 PM CDT Vent Rate: 51 bpm RR Interval: 1170 msec CO Interval: 228 msec QRS Duration: 94 msec QT Interval: 439 msec QTC Interval: 415 msec P-R-T Dickens: 60 - 13 - 74 degrees IMPRESSION: SINUS BRADYCARDIA WITH FIRST DEGREE AV BLOCK ABNORMAL ECG Electronically Signed By: Dr. Emiliano Cuello [facility] us Angel Gonzalez MD ECG ORDERABLES Final Result [facility] * XR Chest PA Lateral 2 [...] Lipid panel (11/19/2024 11:36 AM CDT) Pathologist [facility] SCRIBED Cholesterol, Total 173 0 - 200 EXTERNAL LAB SCRIBED HDL 41 40 - 100 EXTERNAL LAB SCRIBED LDL 110(A) 0 - 100 EXTERNAL LAB SCRIBED Triglycerides 69 0 - 150 EXTERNAL LAB Blood 11/19/2024 11:3 6 AM CDT Historical Provider LAB BLOOD ORDERABLES Jazmín l Result EXTERNAL LAB * Cardiology Document Scan (11/19/2024) Anatomical Region Laterality Modality Other Gutsavo Iverson MD CV CARDIAC SERVICES PRO CEDURES Final Result * TRANSTHORACIC ECHO (TTE) COMPLETE W DOPPLER/CF WO CONTRAST (11/07/2024 9:56 AM CDT) Pathologist [facility] LV EF 45-50 % CONS SCIMAGE Anatomical Region Laterality Modality Ultrasound 11/07/2024 9:15 AM CDT Narrative 11/07/2024 12:[address] [facility] Cardiology [address], [place] [address] [address], [place] [address] P:[phone] P:[phone] Echocardiographic Report Patient Name: DENISE JAMES : 1945 Study Date: 11/07/2024 9:15:36 AM Gender: M Tech: [facility] Location: [facility] Provider: GUSTAVO IVERSON Height(Cm): 185 BSA: [...] FINDINGS: Interpretation Site: Exam was interpreted at [facility]. Left Ventricle: Normal left ventricular size. Mild [...] Note Gustavo Iverson MD - 11/07/2024 [facility] Cardiology [address] [facility] [address] [id number] [address] [facility] [address], [place] [address] P:[phone] P:[phone] Echocardiographic Report Patient Name: DENISE JAMES : 1945 Study Date: 11/07/2024 9:15:36 AM Gender: M Tech: [facility] Location: [facility] Provider: GUSTAVO IVERSON Height(Cm): 185 BSA: [...] FINDINGS: Interpretation Site: Exam was interpreted at [facility]. Left Ventricle: Normal left ventricular size. Mild [...] l Result from Last 3 Months Insurance [facility] MEDICARE ADVANTAGE [place] [id number] [employer] MEDICARE ADVANTAGE [place] [id number] Advance Directives For more information, please contact: [phone] Documents on File Type Date Recorded Patient Detention Officer Expl anation ADVANCE DIRECTIVE 01/10/2025 7:27 AM BASIL Brandon WILL ADVANCE DIRECTIVE 01/10/2025 7:27 AM POWER OF SOCIOLOGY FACULTY MEMBER-MEDICAL ADVANCE DIRECTIVE 01/08/2025 2:58 PM Power of Scientific Informatics Analyst-Medical * Full Code (Latest Code Status on File) Date Activated Date Inactivated Comments 12/30/2024 4:33 PM 01/08/2025 8:14 PM Healthcare Agents on File Name Relationship Healthcare Agent Relationshi p Communication Catina James Spouse Health Care Agent Care Teams Derrick Operator Relationship Specialty Start Date End Date Rj Shepherd MD [address] [address] PCP - General Internal Medicine 07/23/24 Angel Gonzalez MD 2 [facility] [address] [place] [address] Surgeon Cardiothoracic Surgery 01/08/25 Padmaja Louis NP [address] [place] [address] Nurse Practitioner Cardiovascular Disease 01/08/25
[2025-01-18 17:49] LABS: Basophils Percent Auto 0.4 % (0.2-1.2); Eosinophils Absolute Auto 0.1 K/mm3 (0-0.3); Eosinophils Percent Auto 1.5 % (0-4.4); Hematocrit 34.2 % (42.0-52.0); Hemoglobin 10.9 g/dL (14.0-18.0); Immature Granulocyte Absolute 0.04 K/mm3 (0.00-0.031); Immature Granulocyte Percent A 0.7 % (0-0.5); Lymphocytes Absolute Auto 0.56 K/mm3 (0.9-3.2); Lymphocytes Percent Auto 10.2 % (18.3-44.2); Mean Corpuscular HGB Conc 31.9 g/dl (32-36); Mean Corpuscular Hemoglobin 29.2 pg (26-34); Mean Corpuscular Volume 91.7 fl (80-100); Mean Platelet Volume 9.6 fl (7.4-10.4); Monocytes Absolute Auto 0.4 K/mm3 (0.1-0.6); Monocytes Percent Auto 6.9 % (2.6-8.5); Neutrophils Absolute Auto 4.4 K/mm3 (1.3-6.7); Neutrophils Percent Auto 80.3 % (45.5-73.1); Platelet Count Result 225 k/mm3 (150-375); Red Blood Count 3.73 M/mm3 (4.6-6.20); Red Cell Distribution Width 14.5 % (11.5-14.5); White Blood Count 5.5 K/mm3 (4.5-10.0)
[2025-01-18 18:10] LABS: INR 1.2; Prothrombin Time 16.2 Seconds (11.1-14.7)
[2025-01-18 19:23] VITALS: BP 110/85; PULSE 84; RESP 16; O2SAT 98
== END 2025-01-18 19:30 | disposition home or self-care (01) ==
PROVIDERS: Emergency Provider Emergency Medicine; PCP Internal Medicine
DX: R04.0 Epistaxis (principal); Z79.01 Long term (current) use of anticoagulants; Z79.82 Long term (current) use of aspirin; Z95.1 Presence of aortocoronary bypass graft; I10 Essential (primary) hypertension; I48.91 Unspecified atrial fibrillation; Z87.891 Personal history of nicotine dependence
CPT/HCPCS: 36415; 85025; 85610; 85730; 99283

== ENCOUNTER 2025-06-30 13:45 | Outpatient (RCR) | payer MEDICARE, SELFPAY | END 2025-06-30 14:31 | disposition home or self-care (01) | LOC: ANHCPREHAB 13:45 | PROVIDERS: PCP Internal Medicine; Visit Provider Internal Medicine Cardiovascular Disease | DX: Z95.1 Presence of aortocoronary bypass graft (principal) | CPT/HCPCS: 93798 ==